=== PATIENT | male | born 1945 | race Caucasian/White ===

== ENCOUNTER 2017-08-08 07:03 | Observation (INO) | payer MEDICARE, OTHER, SELFPAY ==
[2017-08-08] VITALS (13 sets, daily range): BP systolic 133–191; BP diastolic 74–90; PULSE 49–75; RESP 12–18; TEMP 36.5–37; O2SAT 96–98; BMI 34.3; BMI 33.1
--- NOTE | 2017-08-08 07:14 | EKG12_ITS ---
Test Reason : CP, PALPITATIONS Blood Pressure : / mmHG Vent. Rate : 079 BPM Atrial Rate : 288 BPM P-R Int : 000 ms QRS Dur : 106 ms QT Int : 420 ms P-R-T Axes : 000 -47 006 degrees QTc Int : 481 ms Atrial fibrillation /flutter Premature ventricular complexes Poor R wave progression Left axis deviation Inferior infarct , age undetermined Abnormal ECG Confirmed by MERLE ORO, VIOLETTA ([id number]), technical writer and editor BRENDA KULKARNI ([id number]) on 08/10/2017 1:00:29 PM Referred By: JOHN Confirmed By:VIOLETTA BLOOM MD
--- NOTE | 2017-08-08 07:14 | RAD_ITS ---
STUDY: X-RAY CHEST REASON FOR EXAM: Male, 71 years old. Chest pain TECHNIQUE: Single AP portable view of the chest. COMPARISON: 09/10/2016 FINDINGS: The lungs are clear and expanded. There is no demonstrated pleural abnormality. There is moderate cardiac enlargement. Normal mediastinum and rosendo. Normal visualized pulmonary arteries. Normal visualized aortic arch and descending thoracic aorta. Normal visualized thoracic spine. Normal visualized ribs, clavicles, and shoulders. There is no demonstrated abnormality of the visualized soft tissue structures of the upper abdomen. RAD/Chest 1 View (Portable) IMPRESSION: Normal x-ray examination of the chest. Electronically Signed: Rico Aviles DO at 8:23 EDT Tel , Service support ,
[2017-08-08] MEDS: Aspirin 81 MG TAB.CHEW 324 MG PO (07:24)
--- NOTE | 2017-08-08 07:26 | NURSING ---
PCU BRADYCARDIA, CP, ELEVATED TROP SEMENTI
--- NOTE | 2017-08-08 07:33 | ED.DCSUM_ITS ---
- ER Visit Summary Date of Service: 08/08/17 Chief Complaint: Palpitations, reflux History of Present Illness: The patient is a 71 M who states he has had this pain for months. He states he came in today because he started feeling a little bit short of breath however when I asked him later on in the interview he says is not short of breath. He has a history of atrial fibrillation which was diagnosed last year. He is currently on apixaban. He does take omeprazole for acid reflux. He had a cardiac catheterization done in September 2016 which showed 60% coronary lesions in the left anterior descending in the right coronary artery. He has a 50% lesion in the circumflex. His EF was 70% at that time. Physical Examination: Vital signs reviewed. HEENT exam unremarkable. Heart is irregularly irregular without murmurs. His rate is controlled. Lungs are clear to auscultation. Abdomen is soft and nontender. Extremities reveal no edema. Peripheral pulses are equal. Skin exam normal. Neurologic exam normal. Test Results: EKG was A. fib with rate 79. PVCs noted. Chest x-ray unremarkable. Labs unremarkable except for troponin 0 0.07. Emergency Department Course and Treatment: Patient received aspirin. Due to his history and elevated troponin I feel he should be admitted. Spoke with the hospitalist for admission Treatment Plan: [] Disposition: Admit Impression: Chest Pain, indeterminate troponin This note was generated with [employer] dictation software. It may contain incorrect words, spelling, and punctuation that were not noted in review of the chart prior to signing ED Disposition - Plan for ED Patient: Chief Complaint: Palpitations [facility] [[facility] Provider[facility] -
[2017-08-08 07:49] LABS: Absolute Lymphocyte Count 1.97 X10^3/ul (0.83-4.51); Absolute Neutrophil Count 3.7 X10^3/uL (2.0-7.7); Basophil# 0.03 X10^3/uL; Basophil% 0.4 % (0-1); Eosinophil# 0.14 X10^3/uL; Eosinophils% 2.1 % (0-5); Hematocrit 40.9 % (40-54); Lymphocyte # 1.97 X10^3/ul (4.0); Lymphocyte % 29.2 % (19-41); Mean Corp Hgb Conc 34.2 g/gl (32-36); Mean Corpuscular Hgb 30.2 pg (27.0-32.0); Mean Corpuscular Volume 88.1 fL (80-94); Monocyte% 13.3 % (0-10); Neutrophil # 3.69 X10^3/uL (2.7-7.7); Neutrophil % 54.7 % (47-70); Platelet Count 179 K/mm3 (150-450); RBC Distribution Width CV 14.3 % (11.6-14.6); RBC Distribution Width SD 45.9 fl (35.1-43.9); Red Blood Count 4.64 M/mm3 (4.6-6.2); White Blood Count 6.8 K/mm3 (4.4-11.0)
[2017-08-08 07:51] LABS: POSITIVE COUNT NO; POSITIVE DIFFERENTIAL NO; POSITIVE MORPHOLOGY NO
[2017-08-08 08:08] LABS: Anion Gap 8 (5-15); BUN 11 mg/dL (7-18); BUN/Creat Ratio 10.5 RATIO (10-20); Calcium,Total 8.7 mg/dL (8.5-10.1); Chloride 103 mmol/L (98-107); Creatinine, Serum 1.05 mg/dL (0.70-1.30); EST Glomerular Filtration Rate 74 mL/min (>60); Est Glom Filt Rate - Afr Amer 90 mL/min (>60); Glucose 113 mg/dL (74-106); Potassium 3.9 mmol/L (3.5-5.1); Sodium Level 137 mmol/L (136-145)
--- NOTE | 2017-08-08 08:21 | NURSING ---
CALLING [facility]
--- NOTE | 2017-08-08 08:23 | NURSING ---
HAD TO LEAVE MESSAGE ON TRANSFER LINE AT [facility]
--- NOTE | 2017-08-08 08:44 | NURSING ---
DR YEE FOR DR LOPEZ
--- NOTE | 2017-08-08 08:49 | NURSING ---
118 OBS CP AND PALPITATION. UNSTABLE ANGINA AND AFIB NAKIA
--- NOTE | 2017-08-08 09:47 | NURSING ---
[facility], CALLED AND SAID PATIENT COULD BE ADMITTED AND THEY WOULD FOLLOWUP WITH HIM
[2017-08-08 09:58] LABS: BNP,B-Type NATRIURETIC PEPTIDE 403.7 pg/mL (0-100); Thyroid Stim Hormone (TSH) 1.77 uIU/mL (0.358-3.74)
[2017-08-08] MEDS: NIFEdipine 60 MG Tablet PO (11:07)
[2017-08-08] MEDS: APIXABAN 5 MG TABLET PO (11:07)
[2017-08-08] MEDS: Pantoprazole Sodium 20 MG Tablet PO (11:07)
[2017-08-08] MEDS: Metoprolol Tartrate 50 MG Tablet PO ×2 (11:07→21:43)
--- NOTE | 2017-08-08 11:13 | PCM.HP.STD ---
Problem List (1) Unstable angina Status: Acute (2) Abnormal EKG Status: Chronic (3) Troponin I above reference range Status: Chronic (4) Atrial fibrillation Status: Chronic (5) Near syncope Status: Resolved (6) Lightheadedness Status: Resolved (7) Hypertension Status: Chronic History of Present Illness Date of Admission: 08/08/17 Chief Complaint: Chest pain and palpitation for about 1 week The patient is a 71 year old M with history of moderate coronary artery disease as per cardiac cath in September 2016, chronic A. fib on Eliquis came to ER with intermittent chest pain for about 1 week associated with mild shortness of breath. The characteristics of chest pain is more localized associated with mild shortness of breath and palpitation and gets even at rest. Chest pain does not have direct correlation with exertion but he gets more short of breath and chest tightness with activity. He had last cath in September 2016 showed mid LAD 60%, mid OM to 50% and mid RCA 60% with LV gram EF 70%. Patient had also echo at that time showed EF 65% with no regional wall motion abnormality. LA moderately enlarged mildly dilated RV, RVSP 35 mmHg. EKG shows A. fib at 79 bpm with LAD with PVCs. Currently, he is chest pain-free Past Medical History Past Medical History (Chronic Problems): Chronic Problems Abnormal EKG (Chronic) Troponin I above reference range (Chronic) Atrial fibrillation (Chronic) Hypertension (Chronic) Allergies lisinopril Allergy (Verified 08/08/17 07:06) Angioedema Penicillins [PCN] Allergy (Verified 08/08/17 07:06) Hives Home Medications: Ambulatory Orders Medication Instructions Recorded Metoprolol Tartrate [Lopressor 50 mg PO BID #1 tablet 09/02/14 (beta ines)] NIFEdipine [Procardia Xl] 60 mg PO BID #14 tablet 09/02/14 Omeprazole [Prilosec] 20 mg PO DAILY 09/10/16 Apixaban [Eliquis] 5 mg PO BID 08/08/17 Surgical History: total knee arthroplasty Psychiatric History: No pertinent psych hx Smoking Status: Never smoker - *Family History Maternal History Items: Hypertension Paternal History Items: Stroke Sibling History Items: Hypertension Review of Systems Constitutional: Denies: Chills, Fever, Weight Change HEENT: Denies: Head Aches, Sinus Congestion, Sinus Drainage Cardiovascular: Reports: Chest Pain. Denies: Palpitations Respiratory: Reports: Shortness of breath upon exertion. Denies: Cough, Shortness of breath at rest, Sputum production Gastrointestinal: Denies: Abdominal Pain, Nausea, Vomiting Genitourinary: Denies: Dysuria Musculoskeletal: Denies: Joint Pain, Joint Tenderness Skin: Denies: Rash, Wounds Neurological: Denies: Numbness, Tingling, Focal weakness Psychiatric: Denies: Anxiety, Depression, Homicidal Ideations, Suicidal Ideations Hematologic/ Lymphatic: Denies: Easy Bruising, Easy Bleeding VTE Information - Inpt Only VTE Present on Admission: No VTE Mechan Device Prophylaxis: SCD's VTE Pharm Prophylaxis ordered?: Yes Patient Problems: Active and Suspected Problems Unstable angina (Acute) - Physical Exam General: Alert, Oriented x3, Cooperative HEENT: Atraumatic, PERRLA, EOMI, Normocephalic Neck: Supple, No JVD, Negative Carotid Bruits Lungs: Clear to auscultation, Normal air movement Cardiovascular: Normal S1, Normal S2, No murmurs, Irregular Rate Abdomen: Bowel Sounds Present, Soft, Non Tender, Non-Distended Extremities: Capillary Refill Less than 3 Seconds, Edema Skin: No rashes, No breakdown Musculoskeletal: No Tenderness to Palpation of Joints or Extremities Neurological: Cranial nerves II-XII grossly intact Psych/Mental Status: Normal Affect, Appropriate Vital Signs Temp Pulse Resp BP Pulse Ox 98.6 F 60 18 142/74 H 96 08/08/17 09:24 08/08/17 11:07 08/08/17 09:24 08/08/17 09:24 08/08/17 09:24 Oxygen Delivery Method Room Air Weight: 265 lb 3.457 oz Body Mass Index (BMI) 33.1 Assessment/Plan Active and Suspected Problems Unstable angina (Acute) The patient is a 71 year old M with history of moderate coronary artery disease as per cardiac cath in September 2016, chronic A. fib on Eliquis came to ER with intermittent chest pain for about 1 week associated with mild shortness of breath. The characteristics of chest pain is more localized associated with mild shortness of breath and palpitation and gets even at rest. Chest pain does not have direct correlation with exertion but he gets more short of breath and chest tightness with activity. He had last cath in September 2016 showed mid LAD 60%, mid OM to 50% and mid RCA 60% with LV gram EF 70%. Patient had also echo at that time showed EF 65% with no regional wall motion abnormality. LA moderately enlarged mildly dilated RV, RVSP 35 mmHg. EKG shows A. fib at 79 bpm with LAD with PVCs. Currently, he is chest pain-free 1. Atypical chest pain most probably unstable angina with moderate coronary artery disease: The patient did not had dust collector operator follow-up after discharge in September 2016 although he was asked [facility] Patient is being admitted in PCU. Serial cardiac enzymes. Continue home medication. Hold Eliquis as he might need repeat cardiac cath. Consult dust collector operator. Patient on nitro ointment as needed for chest pain. Fasting lipid profile tomorrow a.m. 2. Chronic A. fib on Eliquis: Rate is controlled. hold Eliquis in anticipation possible cardiac cath 3. Other comorbidities include hypertension: Home medication reconciliation done. Blood pressure slightly elevated 158/74 in ER. Currently controlled. DVT prophylaxis: On bilateral SCDs. Clinical Impression(s) from Imaging Studies Chest X-Ray 08/08/17 07:14 IMPRESSION: Normal x-ray examination of the chest. Laboratory Results 08/08/17 07:40: WBC 6.8, RBC 4.64, Hgb 14.0, Hct 40.9, MCV 88.1, MCH 30.2, MCHC 34.2, RDW 14.3, RDW Differential 45.9 H, Plt Count 179, MPV 11.0, Immature Gran % (Auto) 0.300, Neut % (Auto) 54.7, Lymph % (Auto) 29.2, [place] % (Auto) 13.3 H, Eos % (Auto) 2.1, Baso % (Auto) 0.4, Absolute Neuts (auto) 3.7, Absolute Lymphs (auto) 1.97, Total Counted Not Reportable 08/08/17 07:40: Sodium 137, Potassium 3.9, Chloride 103, Carbon Dioxide 26.0, Anion Gap 8, BUN 11, Creatinine 1.05, Estim Creat Clear Calc 77.20, Est GFR (MDRD) Af Amer 90, Est GFR (MDRD) Non-Af 74, BUN/Creatinine Ratio 10.5, Glucose 113 H, Calcium 8.7, Troponin I 0.07 H 05/07/18 07:40: B-Natriuretic Peptide 403.7 H 08/08/17 07:40: TSH 1.77 Code Visit OBSV E&M: [id number] Initial observation care L3
--- NOTE | 2017-08-08 16:00 | EKG12_ITS ---
Test Reason : Blood Pressure : / mmHG Vent. Rate : 060 BPM Atrial Rate : 060 BPM P-R Int : 400 ms QRS Dur : 104 ms QT Int : 446 ms P-R-T Axes : 072 -48 016 degrees QTc Int : 446 ms Sinus rhythm with 1st degree A-V block with Fusion complexes Left axis deviation Low voltage QRS Inferior infarct (cited on or before 31-AUG-2014) Abnormal ECG When compared with ECG of 13-SEP-2016 05:18, Sinus rhythm has replaced Atrial fibrillation Confirmed by JONATHON ORO, PIEDAD ([id number]), web content editor BRENDA KULKARNI ([id number]) on 08/12/2017 2:25:04 PM Referred By: CELESTINE Confirmed By:PIEDAD HOLT MD
--- NOTE | 2017-08-08 16:13 | CON.PCM_ITS ---
Reason for Consult Date of Consultation: 08/08/17 Reason for Consultation: Shortness of breath and chest tightness History of Present Illness: The patient is a 71 year old M with a history of hypertension and probable paroxysmal atrial fibrillation. This was diagnosed a year ago when he presented for colonoscopy and was noted to be in atrial fibrillation. At that time he also had mildly abnormal cardiac enzymes. He underwent a cardiac catheterization which demonstrated mild coronary artery disease with a 60% left anterior descending artery stenosis, a 50% first obtuse marginal branch stenosis in the right coronary artery with 50-60% stenosis his ejection fraction was normal medical therapy was recommended as well as anticoagulation. He also had an echocardiogram which demonstrated preserved ejection fraction and moderate left atrial enlargement. He apparently has been doing well but says that he started having some tightness as well as shortness of breath and he thinks he had mild pedal edema he was waking up in the night and slightly short of breath. He says that he has been compliant with his medications. He is currently not having any further chest tightness. [] Past Medical History Allergies/Adverse Reactions: Allergies lisinopril Allergy (Verified 08/08/17 07:06) Angioedema Penicillins [PCN] Allergy (Verified 08/08/17 07:06) Hives Home Medications: Ambulatory Orders Medication Instructions Recorded Metoprolol Tartrate [Lopressor 50 mg PO BID #1 tablet 09/02/14 (beta ines)] NIFEdipine [Procardia Xl] 60 mg PO BID #14 tablet 09/02/14 Omeprazole [Prilosec] 20 mg PO DAILY 09/10/16 Apixaban [Eliquis] 5 mg PO BID 08/08/17 Past Medical History (Chronic Problems): Chronic Problems Abnormal EKG (Chronic) Troponin I above reference range (Chronic) Atrial fibrillation (Chronic) Hypertension (Chronic) Surgical History: total knee arthroplasty Psychiatric History: No pertinent psych hx - *Family History Maternal History Items: Hypertension Paternal History Items: Stroke Sibling History Items: Hypertension Smoking Status: Never smoker Alcohol: Occasional Drugs: None Review of Systems - Review of Systems General: Denies: Fever, Night Sweats, Fatigue Cardiovascular: Reports: Chest Discomfort at Rest, Shortness of Breath. Denies : Chest Discomfort, Orthopnea, PND, Peripheral Edema, Palpitations, Lightheadedness, Dizziness, Near Syncope, Syncope Respiratory: Denies: Cough, Sputum Production, Hemoptysis Gastrointestinal: Denies: Hematemesis, Hematochezia, Melena Genitourinary: Denies: Dysuria, Hematuria Skin: Denies: Rash Subjectve: Pleasant gentleman in no apparent distress Objective: Vital Signs Temp Pulse Resp BP Pulse Ox 98.0 F 71 18 137/90 H 97 08/08/17 14:51 08/08/17 15:10 08/08/17 14:51 08/08/17 14:51 08/08/17 14:51 Oxygen Delivery Method Room Air Weight: 265 lb 3.457 oz Body Mass Index (BMI) 33.1 Intake and Output for Last 24 Hours 08/06/17 08/07/17 08/08/17 23:59 23:59 23:59 Intake Total 375 / 375 Balance 375 / 375 General: Awake, Alert, Oriented x 3 HEENT: PERRL, EOMI, Sclera Non Icteric Neck: Supple, Good ROM, No Lymph Node Enlargement Lungs: Clear to auscultation Cardiovascular: Regular Rhythm, Normal S1, Normal S2, No Murmurs, No Rubs, No Gallops Vascular: No Carotid Bruits, Normal Femoral Pulses, Normal Radial Pulses, Normal Dorsalis Pedal Pulse, Normal Posterior Tibial Pulses Abdomen: Bowel Sounds Present, Soft, Non Tender, No HSM, No Organomegaly Extremities: No Cyanosis, No Clubbing, No edema Neurological: No Focal Motor or Sensory Deficit 08/08/17 11:50: Troponin I 0.07 H Rhythm: EKG: Initial EKG demonstrated atrial fibrillation with a controlled ventricular response rate and premature ventricular complexes with a rate of 79 bpm. Follow -up electrocardiogram demonstrates sinus bradycardia. Assessment/Plan 1. Diastolic heart failure. Patient appears to have presented with shortness of breath elevated natruretic peptide was in atrial fibrillation and had evidence of diastolic heart failure. My recommendation at this time would be to start him on Lasix 40 mg a day. He had an echocardiogram within the last year he has not had any abnormal cardiac enzymes and I do not think there is a reason to repeat the above will perform any stress testing. His medical therapy should be optimized. He can be followed up as an outpatient regarding the above. 2. Paroxysmal atrial fibrillation Patient appears to be in paroxysmal atrial fibrillation has currently converted to sinus rhythm he is on the beta-ines as well as on the Eliquis. My recommendation would be for him to continue the same without making any changes. 3. Mild coronary artery disease. Patient has mild coronary artery disease documented by cardiac catheterization less than a year ago. His cardiac enzyme pattern does not demonstrate evidence of ischemia and I suspect that the minimal troponin bump is secondary to demand ischemia and/or stretch from the congestive heart failure. I do not think that a stress test at this time would be necessarily beneficial. His chest pain appears to be rather atypical. 4. Hypertension His blood pressure is under good control. He will remain on the beta-ines and the calcium channel ines. I would recommend that we reduce the dose of the nifedipine to once a day and put him on an CHUNG inhibitor with a diuretic. 5. Risk factor modification Patient would need his risk factor modified with high intensity statin due to his mild to moderate coronary artery disease status. Thank you for allowing me to participate in the care of your patient. Please don't hesitate to call if any issues arise
[2017-08-08] MEDS: Furosemide 40 MG/4 ML Vial IV (16:38)
[2017-08-08] MEDS: 0.9% NaCl Peripheral Flush Adult/Peds IV (16:38)
[2017-08-08] MEDS: Atorvastatin Calcium 40 MG Tablet PO (21:43)
[2017-08-09] VITALS (9 sets, daily range): BP systolic 123–160; BP diastolic 69–89; PULSE 32–60; RESP 16–18; TEMP 36.4–37; O2SAT 95–97
[2017-08-09 06:15] LABS: Cholesterol 175 mg/dL (200); High Density Lipoprotein 45 mg/dL; Triglycerides 112 mg/dL; Very Low Density Lipoprotein 22 mg/dL (5-40)
[2017-08-09] MEDS: Acetaminophen 325 MG Tablet 650 MG PO (06:36)
--- NOTE | 2017-08-09 06:55 | PCM.PN.CARD ---
Subjectve: Patient seen and evaluated. Appears to be much better this morning. Objective: Vital Signs Temp Pulse Resp BP Pulse Ox 98.6 F 58 L 18 134/74 H 95 08/09/17 05:31 08/09/17 05:31 08/09/17 05:31 08/09/17 05:31 08/09/17 05:31 Oxygen Delivery Method Room Air Weight: 265 lb 3.457 oz Body Mass Index (BMI) 33.1 Intake and Output for Last 24 Hours 08/07/17 08/08/17 08/09/17 23:59 23:59 23:59 Intake Total 1095 / 1095 100 / 100 Balance 1095 / 1095 100 / 100 General: Awake, Alert, Oriented x 3 HEENT: PERRL, EOMI, Sclera Non Icteric Neck: Supple, Good ROM, No Lymph Node Enlargement Lungs: Clear to auscultation Cardiovascular: Regular Rhythm, Normal S1, Normal S2, No Murmurs, No Rubs, No Gallops Vascular: No Carotid Bruits, Normal Femoral Pulses, Normal Radial Pulses, Normal Dorsalis Pedal Pulse, Normal Posterior Tibial Pulses Abdomen: Bowel Sounds Present, Soft, Non Tender, No HSM, No Organomegaly Extremities: No Cyanosis, No Clubbing, No edema Neurological: No Focal Motor or Sensory Deficit 08/08/17 11:50: Troponin I 0.07 H 08/08/17 15:40: Troponin I 0.07 H 08/08/17 22:11: Troponin I 0.06 08/09/17 05:25: Triglycerides 112, Cholesterol 175, LDL Cholesterol 108, VLDL Cholesterol 22, HDL Cholesterol 45 Rhythm: EKG: ECHO: Stress Test: Cardiac Cath: PCI: CT Surgery: Holter monitor: EPS: PPM: CXR: Chest CT Scan: Medical Necessity - Tobacco Use Smoking Status: Never smoker Assessment/Plan 1. Diastolic heart failure. Patient appears to have presented with shortness of breath elevated natruretic peptide was in atrial fibrillation and had evidence of diastolic heart failure. My recommendation at this time would be to start him on Lasix 40 mg a day. He had an echocardiogram within the last year he has not had any abnormal cardiac enzymes and I do not think there is a reason to repeat the above will perform any stress testing. His medical therapy should be optimized. He can be followed up as an outpatient regarding the above. 2. Paroxysmal atrial fibrillation Patient appears to be in paroxysmal atrial fibrillation has currently converted to sinus rhythm he is on the beta-ines as well as on the Eliquis. My recommendation would be for him to continue the same without making any changes. 3. Mild coronary artery disease. Patient has mild coronary artery disease documented by cardiac catheterization less than a year ago. His cardiac enzyme pattern does not demonstrate evidence of ischemia and I suspect that the minimal troponin bump is secondary to demand ischemia and/or stretch from the congestive heart failure. I do not think that a stress test at this time would be necessarily beneficial. His chest pain appears to be rather atypical. 4. Hypertension His blood pressure is under good control. He will remain on the beta-ines and the calcium channel ines. I would recommend that we reduce the dose of the nifedipine to once a day and put him on an CHUNG inhibitor with a diuretic. 5. Risk factor modification Patient would need his risk factor modified with high intensity statin due to his mild to moderate coronary artery disease status. This morning he appears to have improved overall and my recommendation is to discharge him and follow him as an outpatient at the [facility]. Thank you for allowing me to participate in the care of your patient. Please don't hesitate to call if any issues arise
[2017-08-09] MEDS: NIFEdipine 60 MG Tablet PO (09:23)
[2017-08-09] MEDS: Metoprolol Tartrate 50 MG Tablet PO (09:23)
[2017-08-09] MEDS: Lisinopril 10 MG Tablet PO (09:23)
[2017-08-09] MEDS: Pantoprazole Sodium 20 MG Tablet PO (09:23)
[2017-08-09] MEDS: Aspirin E.C. 81 MG Tablet PO (09:23)
[2017-08-09] MEDS: Furosemide 40 MG Tablet PO (09:23)
--- NOTE | 2017-08-09 10:16 | EKG12_ITS ---
Test Reason : BRADYCARDIA Blood Pressure : / mmHG Vent. Rate : 051 BPM Atrial Rate : 051 BPM P-R Int : 432 ms QRS Dur : 104 ms QT Int : 456 ms P-R-T Axes : 068 -54 005 degrees QTc Int : 420 ms Sinus bradycardia with 1st degree A-V block Left axis deviation Low voltage QRS Inferior infarct , age undetermined Abnormal ECG When compared with ECG of 08-AUG-2017 16:16, MANUAL COMPARISON REQUIRED, DATA IS UNCONFIRMED Confirmed by JONATHON ORO, PIEDAD ([id number]), purchasing expeditor BRENDA KULKARNI ([id number]) on 08/16/2017 2:17:38 PM Referred By: NAKIA Confirmed By:PIEDAD HOLT MD
--- NOTE | 2017-08-09 13:15 | PCM.DC ---
- Discharge Diagnoses Current Active Problems: Current Active and Chronic Problems Unstable angina (Acute) You will use the following diet at home:: Cardiac - <2 g sodium/day Your food should be the consistency of: Regular Your liquids should be the consistency of: Regular/Thin Discharge Activity: Return to Normal Activity Allergies/Adverse Reactions: Allergies lisinopril Allergy (Verified 08/08/17 07:06) Angioedema Penicillins [PCN] Allergy (Verified 08/08/17 07:06) Hives Medications to take at Discharge Omeprazole [Prilosec] 20 mg PO DAILY 09/10/16 Apixaban [Eliquis] 5 mg PO BID 08/08/17 Aspirin E.C. [Ecotrin] 81 mg PO DAILY@0800 tablet 08/09/17 Atorvastatin Calcium [Lipitor] 40 mg PO QHS #30 tablet 08/09/17 Furosemide [Lasix] 40 mg PO DAILY #30 tablet 08/09/17 Metoprolol Tartrate [Lopressor (beta ines)] 25 mg PO BID #60 tab 08/09/17 NIFEdipine [Procardia Xl] 60 mg PO DAILY tablet 08/09/17 The following prescriptions were given: Metoprolol Tartrate [Lopressor (beta ines)] 25 mg PO BID #60 tab Please follow up with your Primary Care Physician in: 2 weeks Please Follow Up With: Emanuel Richardson MD When: 1 week Proposed Discharge Date: 08/09/17
--- NOTE | 2017-08-09 13:21 | PCM.DC.SUM ---
<Ross Kamara - Last Filed: 08/09/17 13:21> Discharge Date and Diagnosis Date of Admission: 08/08/17 Date of Discharge: 08/09/17 - Primary Discharge Diagnosis Active and Suspected Problems Acute diastolic CHF Paroxysmal AF 2nd degree heart block, type 1 HTN CAD - Secondary Discharge Diagnosis Chronic Problems Abnormal EKG (Chronic) Troponin I above reference range (Chronic) Atrial fibrillation (Chronic) Hypertension (Chronic) Hospital Course and Treatment Imaging Results: RAD/Chest 1 View (Portable) IMPRESSION: Normal x-ray examination of the chest. Consults: Cardiology - Dylan Operations: None Procedures: None Summary of Care Provided: Physical exam on day of discharge: General: Resting comfortably NAD Psych: A/Ox3 normal affect HEENT: PEARRLA AT NC Neck: Supple NT CV: RRR no m/t/r/g/h Resp: CTA Abd: [id number] Soft NT no guarding or rigidity Ext: DP2+= no edema Skin: W/D normal turgor Lymph/Heme: No active bleeding or adenopathy Neuro: CN2-12 intact Hospital course: The patient is a 71 year old M with a history of paroxysmal atrial fibrillation, hypertension,, mild coronary artery disease sent to the emergency room with increased shortness of breath and pain and palpitations for about a week. He is on Eliquis for history of atrial fibrillation and also takes Procardia and metoprolol at home. He had an indeterminate troponin and an elevated BNP and was felt to be in heart failure. With indeterminate troponin chest pain cardiology was consulted for further recommendation. Cardiology did not feel he would benefit from further stress testing or invasive workup. He had had an echo the prior year with ejection fraction of 65%. He is placed on IV Lasix. We maintained his home medications. He diuresed significantly and had significant improvement in his symptoms. While he was here he did have an episode of bradycardia and demonstrated second degree heart block type I. We decided to hold his Lipitor Toprol all for 3 days and arrange for him to have a 48 hour Holter monitor placed as an outpatient. We also decreased his dose of metoprolol, he will restart at 25 BID instead of 50 twice daily. He remained otherwise asymptomatic. His he was discharged home on a new Lasix prescription was advised to be have a BMP in 5 days. He will need to follow-up with his PCP and with cardiology. He is discharged home in stable condition. I did not discharge him on an CHUNG inhibitor as he has a documented reaction of angioedema. This patient was seen by Ross Kamara PA-C under the supervision of Doctor Maico. [] Discharge Diet: Low fat/ Low Cholesterol, 2000 mg Sodium Diet Discharge Activity: Return to Normal Activity Home Medications: Medications to take at Discharge Omeprazole [Prilosec] 20 mg PO DAILY 09/10/16 Apixaban [Eliquis] 5 mg PO BID 08/08/17 Aspirin E.C. [Ecotrin] 81 mg PO DAILY@0800 tablet 08/09/17 Atorvastatin Calcium [Lipitor] 40 mg PO QHS #30 tablet 08/09/17 Furosemide [Lasix] 40 mg PO DAILY #30 tablet 08/09/17 Metoprolol Tartrate [Lopressor (beta ines)] 25 mg PO BID #60 tab 08/09/17 NIFEdipine [Procardia Xl] 60 mg PO DAILY tablet 08/09/17 Following Prescrptions Were Given to Patient: Metoprolol Tartrate [Lopressor (beta ines)] 25 mg PO BID #60 tab Primary Care Physician: [facility] [Primary Care Provider] - Please follow up with your Primary Care Physician in: 2 weeks Please Follow Up With: Emanuel Schofield MD When: 1 week Disposition: Home Minutes spent on discharge:: 35 Patient Condition:: Stable Medical Necessity - Tobacco Use Smoking Status: Never smoker Meaningful Use Info Meaningful Use Diagnoses (Choose all that apply): CHF - CHF CHUNG/ARB ordered at discharge?: No Reason CHUNG/ARB not ordered?: Angioedema Documented LVEF (%): 65 <Ken Nina - Last Filed: 08/09/17 18:16> Discharge Date and Diagnosis - Secondary Discharge Diagnosis Chronic Problems Abnormal EKG (Chronic) Troponin I above reference range (Chronic) Atrial fibrillation (Chronic) Hypertension (Chronic) Hospital Course and Treatment Summary of Care Provided: This patient was seen in conjunction with Ross PATIÑO. I have independently interviewed and examined the patient and reviewed pertinent history, examination findings, laboratory and plan of management. I have reviewed the note and agree with the documented findings with the few additional points. In brief, patient is admitted for chest pain. Serial troponins were done and were mildly elevated but flat 0.07. Seen by padded products inspector trimmer and he did not feel he needs further stress test or invasive workup. He had last cath in September 2016 showed mid LAD 60%, mid OM to 50% and mid RCA 60% with LV gram EF 70%. Patient had also echo at that time showed EF 65% with no regional wall motion abnormality. LA moderately enlarged mildly dilated RV, RVSP 35 mmHg. Furthermore, patient had Wenckebach second-degree heart block. This was discussed with Dr. schofield. Patient discharged on Holter monitor. Patient was advised to hold metoprolol for 3 days and then resume at lower dose with holding parameter if heart rate less than 60/min. Aloe up with the padded products inspector trimmer I have discussed my assessment with Ross PATIÑO and orders have been reviewed. [] Meaningful Use Info Meaningful Use Diagnoses (Choose all that apply): CHF - CHF CHUNG/ARB ordered at discharge?: No Reason CHUNG/ARB not ordered?: Angioedema Documented LVEF (%): 65 Code Visit OBSV E&M: 29355 Observation care discharge
--- NOTE | 2017-08-09 13:28 | DS.PCM_ITS ---
<Ross Kamara - Last Filed: 08/09/17 13:21> Discharge Date and Diagnosis Date of Admission: 08/08/17 Date of Discharge: 08/09/17 - Primary Discharge Diagnosis Active and Suspected Problems Acute diastolic CHF Paroxysmal AF 2nd degree heart block, type 1 HTN CAD - Secondary Discharge Diagnosis Chronic Problems Abnormal EKG (Chronic) Troponin I above reference range (Chronic) Atrial fibrillation (Chronic) Hypertension (Chronic) Hospital Course and Treatment Imaging Results: RAD/Chest 1 View (Portable) IMPRESSION: Normal x-ray examination of the chest. Consults: Cardiology - Dylan Operations: None Procedures: None Summary of Care Provided: Physical exam on day of discharge: General: Resting comfortably NAD Psych: A/Ox3 normal affect HEENT: PEARRLA AT NC Neck: Supple NT CV: RRR no m/t/r/g/h Resp: CTA Abd: [id number] Soft NT no guarding or rigidity Ext: DP2+= no edema Skin: W/D normal turgor Lymph/Heme: No active bleeding or adenopathy Neuro: CN2-12 intact Hospital course: The patient is a 71 year old M with a history of paroxysmal atrial fibrillation , hypertension,, mild coronary artery disease sent to the emergency room with increased shortness of breath and pain and palpitations for about a week. He is on Eliquis for history of atrial fibrillation and also takes Procardia and metoprolol at home. He had an indeterminate troponin and an elevated BNP and was felt to be in heart failure. With indeterminate troponin chest pain cardiology was consulted for further recommendation. Cardiology did not feel he would benefit from further stress testing or invasive workup. He had had an echo the prior year with ejection fraction of 65%. He is placed on IV Lasix. We maintained his home medications. He diuresed significantly and had significant improvement in his symptoms. While he was here he did have an episode of bradycardia and demonstrated second degree heart block type I. We decided to hold his Lipitor Toprol all for 3 days and arrange for him to have a 48 hour Holter monitor placed as an outpatient. We also decreased his dose of metoprolol, he will restart at 25 BID instead of 50 twice daily. He remained otherwise asymptomatic. His he was discharged home on a new Lasix prescription was advised to be have a BMP in 5 days. He will need to follow-up with his PCP and with cardiology. He is discharged home in stable condition. I did not discharge him on an CHUNG inhibitor as he has a documented reaction of angioedema. This patient was seen by Ross Kamara PA-C under the supervision of Doctor Maico. [] Discharge Diet: Low fat/ Low Cholesterol, 2000 mg Sodium Diet Discharge Activity: Return to Normal Activity Home Medications: Medications to take at Discharge Omeprazole [Prilosec] 20 mg PO DAILY 09/10/16 Apixaban [Eliquis] 5 mg PO BID 08/08/17 Aspirin E.C. [Ecotrin] 81 mg PO DAILY@0800 tablet 08/09/17 Atorvastatin Calcium [Lipitor] 40 mg PO QHS #30 tablet 08/09/17 Furosemide [Lasix] 40 mg PO DAILY #30 tablet 08/09/17 Metoprolol Tartrate [Lopressor (beta ines)] 25 mg PO BID #60 tab 08/09/17 NIFEdipine [Procardia Xl] 60 mg PO DAILY tablet 08/09/17 Following Prescrptions Were Given to Patient: Metoprolol Tartrate [Lopressor (beta ines)] 25 mg PO BID #60 tab Primary Care Physician: [facility] [Primary Care Provider] - Please follow up with your Primary Care Physician in: 2 weeks Please Follow Up With: Emanuel Schofield MD When: 1 week Disposition: Home Minutes spent on discharge:: 35 Patient Condition:: Stable Medical Necessity - Tobacco Use Smoking Status: Never smoker Meaningful Use Info Meaningful Use Diagnoses (Choose all that apply): CHF - CHF CHUNG/ARB ordered at discharge?: No Reason CHUNG/ARB not ordered?: Angioedema Documented LVEF (%): 65 <Ken Nina - Last Filed: 08/09/17 18:16> Discharge Date and Diagnosis - Secondary Discharge Diagnosis Chronic Problems Abnormal EKG (Chronic) Troponin I above reference range (Chronic) Atrial fibrillation (Chronic) Hypertension (Chronic) Hospital Course and Treatment Summary of Care Provided: This patient was seen in conjunction with Ross PATIÑO. I have independently interviewed and examined the patient and reviewed pertinent history, examination findings, laboratory and plan of management. I have reviewed the note and agree with the documented findings with the few additional points. In brief, patient is admitted for chest pain. Serial troponins were done and were mildly elevated but flat 0.07. Seen by laborer cheesemaking and he did not feel he needs further stress test or invasive workup. He had last cath in September 2016 showed mid LAD 60%, mid OM to 50% and mid RCA 60% with LV gram EF 70%. Patient had also echo at that time showed EF 65% with no regional wall motion abnormality. LA moderately enlarged mildly dilated RV, RVSP 35 mmHg. Furthermore, patient had Wenckebach second-degree heart block. This was discussed with Dr. schofield. Patient discharged on Holter monitor. Patient was advised to hold metoprolol for 3 days and then resume at lower dose with holding parameter if heart rate less than 60/min. Aloe up with the laborer cheesemaking I have discussed my assessment with Ross PATIÑO and orders have been reviewed. [] Meaningful Use Info Meaningful Use Diagnoses (Choose all that apply): CHF - CHF CHUNG/ARB ordered at discharge?: No Reason CHUNG/ARB not ordered?: Angioedema Documented LVEF (%): 65 Code Visit OBSV E&M: 61512 Observation care discharge
== END 2017-08-09 13:16 | disposition home or self-care (01) ==
LOC: ED 07:23 → PCU 08:51
PROVIDERS: Admitting Provider Internal Medicine; Emergency Provider Emergency Medicine; Visit Provider Internal Medicine
DX: R07.89 Other chest pain (principal); R06.02 Shortness of breath; I25.10 Atherosclerotic heart disease of native coronary artery without angina pectoris; Z79.01 Long term (current) use of anticoagulants; Z79.899 Other long term (current) drug therapy; R94.31 Abnormal electrocardiogram [ECG] [EKG]; I48.2 Chronic atrial fibrillation; I48.0 Paroxysmal atrial fibrillation; I11.0 Hypertensive heart disease with heart failure; I50.31 Acute diastolic (congestive) heart failure; K21.9 Gastro-esophageal reflux disease without esophagitis; I44.1 Atrioventricular block, second degree
CPT/HCPCS: 36415; 71045; 80048; 80061; 83880; 84443; 84484; 85025; 93005; 96374; 99218; 99284; A4216; G0378; J1940

== ENCOUNTER → 2017-08-09 13:38 | Outpatient (CLI) | payer MEDICARE, OTHER, SELFPAY | PROVIDERS: Visit Provider Physician Assistant | DX: I45.9 Conduction disorder, unspecified (principal); I49.9 Cardiac arrhythmia, unspecified | CPT/HCPCS: 93225; 93226 ==

== ENCOUNTER 2017-11-13 12:41 | Emergency (ER) | payer MEDICARE, OTHER, SELFPAY ==
[2017-11-13 12:42] VITALS: BP 160/76; PULSE 85; RESP 15; TEMP 36.7; O2SAT 97; BMI 31.2
--- NOTE | 2017-11-13 13:38 | RAD_ITS ---
STUDY: X-RAY - RIGHT TIBIA AND FIBULA REASON FOR EXAM: Male, 71 years old. Fall TECHNIQUE: 4 view(s) of the tibia and fibula were obtained. COMPARISON: None. FINDINGS: There is no evidence of fracture or dislocation. There are no significant degenerative changes. There are no radiodense foreign bodies. There is soft tissue swelling noted below the knee and above the ankle. RAD/Tibia & Fibula 2 Views IMPRESSION: No fracture or dislocation. Soft tissue swelling. Electronically Signed: Sam Holcomb, at 14:07 EDT Tel , Service support ,
--- NOTE | 2017-11-13 13:51 | ED.VISSUMM ---
- ER Visit Summary Date of Service: 11/13/17 Chief Complaint: Right leg pain History of Present Illness: The patient is a 71 M who presents with right leg pain that began after a fall today. Patient slipped in the shower and fell onto his right leg. Patient states his right lower leg was twisted underneath him. Patient states his pain is worse with weightbearing. Patient denies any paresthesias or weakness. Patient denies any head injury or loss of consciousness. Patient denies any other injuries. Physical Examination: Vital signs are stable. Patient is afebrile. Patient is in no acute distress. Musculoskeletal exam reveals tenderness, edema, and ecchymosis over the anterior aspect of the proximal tibia over the tibial tuberosity and over the distal lower tibia and fibula. There is no deformity noted. There is no bony crepitance or step-off. Range of motion was limited in all motion secondary to pain. Sensation was intact to light touch in all digits. Capillary refill is less than 2 seconds in all digits. The remaining physical exam is within normal limits. Test Results: X-rays of the right tibia and fibula were obtained. There is no acute fracture noted. Emergency Department Course and Treatment: Patient was instructed to ice and elevate the right leg. Patient was instructed to follow-up with his primary care physician in 5-7 days. Patient understood and was agreeable with the plan. All questions were answered. Disposition: Discharge home Impression: Right leg contusions This note was generated with [employer] dictation software. It may contain incorrect words, spelling, and punctuation that were not noted in review of the chart prior to signing ED Disposition - Plan for ED Patient: Disposition: Home or Assisted Living Chief Complaint: Lower Extremity Injury Diagnosis: Contusion of right lower leg, initial encounter Instructions: ED Contusion Lower Ext Referrals: [facility] [Family Provider] -
[2017-11-13 15:14] VITALS: BP 150/67; PULSE 75; RESP 18; O2SAT 98
== END 2017-11-13 15:16 | disposition home or self-care (01) ==
PROVIDERS: Emergency Provider Emergency Medicine
DX: S80.11XA Contusion of right lower leg, initial encounter (principal); W18.2XXA Fall in (into) shower or empty bathtub, initial encounter; Y93.9 Activity, unspecified; Y92.9 Unspecified place or not applicable; I10 Essential (primary) hypertension; I48.91 Unspecified atrial fibrillation; Z79.01 Long term (current) use of anticoagulants; Z79.82 Long term (current) use of aspirin; Z79.899 Other long term (current) drug therapy
CPT/HCPCS: 73590; 99284

== ENCOUNTER 2017-11-17 11:53 | Emergency (ER) | payer MEDICARE, OTHER, SELFPAY ==
[2017-11-17 11:55] VITALS: BP 163/78; PULSE 75; RESP 18; TEMP 36.6; O2SAT 96; BMI 31.2
[2017-11-17 12:08] VITALS: BP 170/88; PULSE 78; RESP 14; O2SAT 98
--- NOTE | 2017-11-17 12:21 | ED.DCSUM_ITS ---
- ER Visit Summary Date of Service: 11/17/17 Chief Complaint: [] Palpitations or racing heart sense of fatigue History of Present Illness: The patient is a 72 M [] history of unspecified irregular heartbeat on Eliquis, and hypertension who reports he suffers from unspecified palpitations and bradycardia he has had an extensive evaluation including cardiac cath with the last year that he states was negative at one time he was told he may require pacemaker. Today with he was at home he felt his heart was racing briefly and he felt weak and tired and now he just feels an occasional sense of palpitation. He had no fever no cough no chest pain abdominal pain or paresthesias, he is on no new medications has been no change to his general health status, in the bed he has obvious PVCs and then runs of some irregularity but a basic underlying sinus rhythm Physical Examination: [] vs are within normal range monitor rhythm as above head neck chest unremarkable the heart tones are generally regular he occasionally has PVCs and runs of irregularity that last for less than 30 seconds, his abdomen is soft nontender upper lower extremities are generally unremarkable he has a bruise to his right hassan related to a fall on Tuesday that is improving and not bothering him, he has no history of DVT or PE and again he has been taking all his medications including his Eliquis Test Results: [] Emergency Department Course and Treatment: [] Given all the above screening labs are obtained Reviewing the prior records the patient's had a Holter monitor where documents PVCs and A. fib A. fib that is paroxysmal, also reviewed inpatient notes from Dr. Richardson the patient had a cardiac cath that showed mild CAD and he has some diastolic dysfunction in the past on reevaluation the patient's lab studies are unremarkable potassium 3.4 chest x-ray unremarkable EKG currently shows a sinus rhythm nothing acute, troponin returns at 0.22 he has had troponins that elevated that range in the past he is having no anginal type chest pain, I spoke in detail with Dr. Richardson I spoke with the patient his family Dr. Richardson believe the patient be safely discharged outpatient follow-up as he is on all the prep medications and the A. fib is been paroxysmal the patient states he is feeling better he does not wish to be admitted he wants to go home he is comfortable following up as a precaution we did a duplex scan of the right leg and that was also negative he was given 1 K-Dur 40 mg 1 tablet while here Currently the patient's resting comfortably he is in a sinus rhythm with no complaints Treatment Plan: [] Disposition: [] Home stable Impression: [] Paroxysmal A. fib This note was generated with [employer] dictation software. It may contain incorrect words, spelling, and punctuation that were not noted in review of the chart prior to signing ED Disposition - Plan for ED Patient: Chief Complaint: Dizziness [facility]errals: [facility] [Primary Care Provider] -
[2017-11-17 12:31] LABS: Absolute Neutrophil Count 5.4 X10^3/uL (2.0-7.7); Basophil# 0.02 X10^3/uL; Basophil% 0.3 % (0-1); Eosinophil# 0.08 X10^3/uL; Hemoglobin 13.5 g/dl (13.0-16.5); Lymphocyte % 18.9 % (19-41); Mean Corp Hgb Conc 33.8 g/gl (32-36); Mean Corpuscular Hgb 28.9 pg (27.0-32.0); Mean Corpuscular Volume 85.7 fL (80-94); Mean Platelet Vol. 11.2 fl (6.2-12.0); Monocyte# 0.92 X10^3/uL; Monocyte% 11.6 % (0-10); Neutrophil % 68.1 % (47-70); Platelet Count 175 K/mm3 (150-450); RBC Distribution Width CV 13.7 % (11.6-14.6); RBC Distribution Width SD 42.5 fl (35.1-43.9); Red Blood Count 4.67 M/mm3 (4.6-6.2); White Blood Count 7.9 K/mm3 (4.4-11.0)
[2017-11-17 12:32] LABS: POSITIVE COUNT NO; POSITIVE DIFFERENTIAL NO; POSITIVE MORPHOLOGY NO
[2017-11-17 12:56] LABS: Anion Gap 8 (5-15); BUN 7 mg/dL (7-18); BUN/Creat Ratio 6.5 RATIO (10-20); Calcium,Total 8.8 mg/dL (8.5-10.1); Chloride 104 mmol/L (98-107); Creatinine, Serum 1.07 mg/dL (0.70-1.30); EST Glomerular Filtration Rate 73 mL/min (>60); Est Glom Filt Rate - Afr Amer 88 mL/min (>60); Estimated Creatinine Clearance 76.78 ml/min; Glucose 130 mg/dL (74-106); Potassium 3.4 mmol/L (3.5-5.1); Sodium Level 138 mmol/L (136-145)
--- NOTE | 2017-11-17 14:04 | ED.DEP ---
ED Disposition - Plan for ED Patient: Chief Complaint: Dizziness Instructions: ED Afib [facility]errals: [facility] [Primary Care Provider] - Emanuel Richardson MD [STAFF PHYSICIAN] -
[2017-11-17 14:32] VITALS: BP 180/76; PULSE 82; RESP 17; O2SAT 97
[2017-11-17 14:44] VITALS: BP 180/79; PULSE 78; RESP 16; O2SAT 96
== END 2017-11-17 14:50 | disposition home or self-care (01) ==
PROVIDERS: Emergency Provider Emergency Medicine
DX: I48.0 Paroxysmal atrial fibrillation (principal); I49.3 Ventricular premature depolarization; S80.11XA Contusion of right lower leg, initial encounter; W19.XXXA Unspecified fall, initial encounter; Y93.9 Activity, unspecified; Y92.9 Unspecified place or not applicable; I25.10 Atherosclerotic heart disease of native coronary artery without angina pectoris; I10 Essential (primary) hypertension; Z79.01 Long term (current) use of anticoagulants; Z79.82 Long term (current) use of aspirin; Z79.899 Other long term (current) drug therapy
CPT/HCPCS: 71045; 80048; 84484; 85025; 93005; 93971; 99285; A4216

== ENCOUNTER 2017-12-02 01:13 | Emergency (ER) | payer OTHER, SELFPAY ==
[2017-12-02 01:13] VITALS: BP 166/81; PULSE 58; RESP 16; TEMP 36.6; BMI 31.2
[2017-12-02] MEDS: oxyCODONE 5 MG Tablet PO (01:54)
--- NOTE | 2017-12-02 03:51 | ED.VISSUMM ---
- ER Visit Summary Date of Service: 12/02/17 Chief Complaint: Back pain History of Present Illness: The patient is a 72 M intermittent right-sided back pain radiating down the side of the leg to the knee for the past 3-4 months. No acute injuries. Symptoms worse with standing relieved with sitting. No loss of bowel or bladder control. Patient states leg did give out had a fall and 12 seen in the ED with a contusion. Saw chiropractor week ago with adjustment. Symptoms are worsening. He is on Eliquis for history of paroxysmal A. fib. Using Tylenol with no relief. States similar symptoms in the past, however less severe. Physical Examination: General: Alert and oriented ?3, no acute distress HEENT: Normocephalic, atraumatic. Moist mucosa membranes Neck: supple, nontender. Cardiovascular: Regular rate and rhythm, no murmurs Respiratory: Normal breath sounds, symmetric, no distress Abdomen: Soft, nontender, nondistended Back: Midline tenderness L2-L3, straight leg test is negative, 1+ patellar reflex bilaterally. Distal pulses intact. Extremities: Nontender, no edema, pulses intact ?4 Neuro: no focal neurological deficits. Test Results: Lumbar x-ray: Degenerative changes. Emergency Department Course and Treatment: Patient with no cauda equina symptoms. Due to being on Eliquis, NSAIDs were avoided. Given dose of oxycodone. X-ray notes degenerative changes. History concerns for sciatica symptoms. OARRS report was negative. Short prescription for pain control. Follow-up with his [place] physician. Treatment Plan: [] Disposition: Discharge Impression: Sciatica right side This note was generated with [employer] dictation software. It may contain incorrect words, spelling, and punctuation that were not noted in review of the chart prior to signing ED Disposition - Plan for ED Patient: Disposition: Home or Assisted Living Chief Complaint: Back Diagnosis: Sciatica Instructions: ED Sciatica Prescriptions: Oxycodone HCl/Acetaminophen [Percocet 5/325] 1 tablet PO Q6H PRN PRN 3 Days #12 tablet PRN Reason: Pain Referrals: Care Physician,No Primary [Primary Care Provider] - Additional Instructions: [facility] days
--- NOTE | 2017-12-02 03:54 | ED.DCSUM_ITS ---
- ER Visit Summary Date of Service: 12/02/17 Chief Complaint: Back pain History of Present Illness: The patient is a 72 M intermittent right-sided back pain radiating down the side of the leg to the knee for the past 3-4 months. No acute injuries. Symptoms worse with standing relieved with sitting. No loss of bowel or bladder control. Patient states leg did give out had a fall and 12 seen in the ED with a contusion. Saw chiropractor week ago with adjustment. Symptoms are worsening. He is on Eliquis for history of paroxysmal A. fib. Using Tylenol with no relief. States similar symptoms in the past, however less severe. Physical Examination: General: Alert and oriented ?3, no acute distress HEENT: Normocephalic, atraumatic. Moist mucosa membranes Neck: supple, nontender. Cardiovascular: Regular rate and rhythm, no murmurs Respiratory: Normal breath sounds, symmetric, no distress Abdomen: Soft, nontender, nondistended Back: Midline tenderness L2-L3, straight leg test is negative, 1+ patellar reflex bilaterally. Distal pulses intact. Extremities: Nontender, no edema, pulses intact ?4 Neuro: no focal neurological deficits. Test Results: Lumbar x-ray: Degenerative changes. Emergency Department Course and Treatment: Patient with no cauda equina symptoms. Due to being on Eliquis, NSAIDs were avoided. Given dose of oxycodone. X-ray notes degenerative changes. History concerns for sciatica symptoms. OARRS report was negative. Short prescription for pain control. Follow-up with his [place] physician. Treatment Plan: [] Disposition: Discharge Impression: Sciatica right side This note was generated with [employer] dictation software. It may contain incorrect words, spelling, and punctuation that were not noted in review of the chart prior to signing ED Disposition - Plan for ED Patient: Disposition: Home or Assisted Living Chief Complaint: Back Diagnosis: Sciatica Instructions: ED Sciatica Prescriptions: Oxycodone HCl/Acetaminophen [Percocet 5/325] 1 tablet PO Q6H PRN PRN 3 Days #12 tablet PRN Reason: Pain Referrals: Care Physician,No Primary [Primary Care Provider] - Additional Instructions: [facility] days
[2017-12-02 04:01] VITALS: BP 162/84; PULSE 66; RESP 18; O2SAT 97
== END 2017-12-02 04:03 | disposition home or self-care (01) ==
PROVIDERS: Emergency Provider Emergency Medicine
DX: M54.41 Lumbago with sciatica, right side (principal); I48.0 Paroxysmal atrial fibrillation; Z79.01 Long term (current) use of anticoagulants; Z79.82 Long term (current) use of aspirin; Z79.899 Other long term (current) drug therapy
CPT/HCPCS: 72100; 99283

== ENCOUNTER 2018-02-25 18:52 | Emergency (ER) | payer OTHER, SELFPAY ==
[2018-02-25 18:54] VITALS: BP 157/77; PULSE 77; RESP 22; TEMP 36.6; O2SAT 97; BMI 31.8
--- NOTE | 2018-02-25 19:45 | EKG12_ITS ---
Test Reason : SHORTNESS OF BREATH Blood Pressure : / mmHG Vent. 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
--- NOTE | 2018-02-25 20:21 | RAD_ITS ---
STUDY: X-RAY CHEST REASON FOR EXAM: Male, 72 years old. Chest pain TECHNIQUE: PA and lateral views of the chest. COMPARISON: 11/17/2017 FINDINGS: EKG leads overlie the chest Lungs are expanded. Since the previous study, there is been development of interstitial edema particularly in the lower half of both lung cordova. Follow-up recommended to assure resolution. No organized infiltrate. There is a small right pleural effusion. Normal size heart. Normal mediastinum and rosendo. Normal visualized pulmonary arteries. Normal visualized aortic arch and descending thoracic aorta. Normal visualized thoracic spine. Normal visualized ribs, clavicles, and shoulders. There is no demonstrated abnormality of the visualized soft tissue structures of the upper abdomen. RAD/Chest PA and Lateral IMPRESSION: Interstitial edema with small right pleural effusion. Follow-up recommended to assure resolution Electronically Signed: Johnathan Daugherty MD at 21:48 EST , Service support ,
[2018-02-25] MEDS: Mag Hydrox/Al Hydrox/Simeth 30 ML UDC PO (20:22)
[2018-02-25 20:38] LABS: Absolute Lymphocyte Count 1.79 X10^3/ul (0.83-4.51); Absolute Neutrophil Count 6.8 X10^3/uL (2.0-7.7); Basophil# 0.05 X10^3/uL; Basophil% 0.5 % (0-1); Eosinophil# 0.09 X10^3/uL; Eosinophils% 0.9 % (0-5); Hematocrit 36.1 % (40-54); Hemoglobin 11.9 g/dl (13.0-16.5); Lymphocyte # 1.79 X10^3/ul (4.0); Lymphocyte % 18.2 % (19-41); Mean Corpuscular Hgb 27.7 pg (27.0-32.0); Mean Corpuscular Volume 84.1 fL (80-94); Mean Platelet Vol. 11.3 fl (6.2-12.0); Monocyte# 1.06 X10^3/uL; Monocyte% 10.8 % (0-10); Neutrophil # 6.82 X10^3/uL (2.7-7.7); Neutrophil % 69.4 % (47-70); POSITIVE COUNT NO; POSITIVE DIFFERENTIAL NO; POSITIVE MORPHOLOGY NO; Platelet Count 216 K/mm3 (150-450); RBC Distribution Width CV 15.3 % (11.6-14.6); RBC Distribution Width SD 47.1 fl (35.1-43.9); Red Blood Count 4.29 M/mm3 (4.6-6.2); White Blood Count 9.8 K/mm3 (4.4-11.0)
[2018-02-25 20:44] LABS: Anion Gap 8 (5-15); BUN 10 mg/dL (7-18); BUN/Creat Ratio 9.2 RATIO (10-20); Calcium,Total 8.6 mg/dL (8.5-10.1); Chloride 102 mmol/L (98-107); Creatinine, Serum 1.09 mg/dL (0.70-1.30); EST Glomerular Filtration Rate 71 mL/min (>60); Est Glom Filt Rate - Afr Amer 86 mL/min (>60); Estimated Creatinine Clearance 75.37 ml/min; Glucose 120 mg/dL (74-106); Potassium 4.1 mmol/L (3.5-5.1); Sodium Level 135 mmol/L (136-145)
[2018-02-25 21:03] LABS: BNP,B-Type NATRIURETIC PEPTIDE 357.9 pg/mL (0-100)
[2018-02-25 21:17] VITALS: BP 132/69; PULSE 60; RESP 16; O2SAT 96
--- NOTE | 2018-02-25 22:15 | ED.VISSUMM ---
- ER Visit Summary Date of Service: 02/25/18 Chief Complaint: Short of breath, cough History of Present Illness: The patient is a 72 M who presents with a 3-day history of cough with yellow to green colored sputum. He eating fluid collection around his lungs. Reports some mild wheezing. He states he is not able to lie down flat at night. He thinks he is in the computer he does have a documented history of CHF, although the patient denies a known history. He used to be on water pills but states the [facility] took him off. He does describe a burning sensation through his chest into his upper abdomen. He states he believes that his reflux disease. He has been taking extra doses of his omeprazole without improvement. Physical Examination: Blood pressure is 157/77, other vitals normal. Patient sitting upright in bed no acute distress. He speaking full sentences. Head and neck examination unremarkable. Heart is regular rate and rhythm. Lungs sounds are clear. Abdomen is soft nontender. Lower external examination reveals 2+ edema that is symmetric in the lower legs. He has an old healing abrasion over the right lower hassan. Test Results: EKG is a flutter at [address] change. Two-view chest x-ray shows interstitial edema with small right pleural effusion. CBC was normal white count hemoglobin of 11.9. Troponin is 0.112. BNP is 357. Emergency Department Course and Treatment: On review of prior records, patient has had a chronically elevated troponin. He was seen in December and had actually had a troponin higher than today's value. 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 Patient was given a GI cocktail today and the burning sensation in his chest is completely resolved. He states this felt more like his reflux pain as opposed to cardiac etiology. Test results were discussed with patient and family at bedside. I believe the patient does need to go back on diuretics. He will be given Lasix and will start taking this medication in the morning. We will also write him for Prevacid to help control his reflux. He will follow-up with his doctors [facility]. Treatment Plan: [] Disposition: Discharge Impression: CHF This note was generated with [employer] dictation software. It may contain incorrect words, spelling, and punctuation that were not noted in review of the chart prior to signing ED Disposition - Plan for ED Patient: Disposition: Home or Assisted Living Chief Complaint: Shortness of Breath Instructions: ED CHF General Prescriptions: Furosemide [Lasix] 40 mg PO DAILY #10 tablet Lansoprazole [Prevacid] 30 mg PO DAILY #30 capsule [facility] [[facility] - 1-2 Weeks
[2018-02-25 22:22] VITALS: BP 138/67; PULSE 78; RESP 16; O2SAT 96
[2018-02-25] MEDS: Furosemide 40 MG Tablet PO (22:38)
== END 2018-02-25 22:38 | disposition home or self-care (01) ==
PROVIDERS: Emergency Provider Emergency Medicine
DX: I11.0 Hypertensive heart disease with heart failure (principal); I50.9 Heart failure, unspecified; K21.9 Gastro-esophageal reflux disease without esophagitis; I25.10 Atherosclerotic heart disease of native coronary artery without angina pectoris; Z87.891 Personal history of nicotine dependence; Z79.01 Long term (current) use of anticoagulants; Z79.82 Long term (current) use of aspirin; Z79.899 Other long term (current) drug therapy
CPT/HCPCS: 71046; 80048; 83880; 84484; 85025; 93005; 99285; A4216

== ENCOUNTER 2018-03-20 09:38 | Emergency (ER) | payer OTHER, MEDICARE, SELFPAY ==
[2018-03-20] VITALS (14 sets, daily range): BP systolic 122–154; BP diastolic 64–82; PULSE 43–59; RESP 14–19; TEMP 36.7–37; O2SAT 95–98; BMI 33.0
--- NOTE | 2018-03-20 10:22 | EKG12_ITS ---
Test Reason : SOB Blood Pressure : / mmHG Vent. Rate : 053 BPM Atrial Rate : 326 BPM P-R Int : 000 ms QRS Dur : 104 ms QT Int : 466 ms P-R-T Axes : 000 -47 009 degrees QTc Int : 437 ms Atrial fibrillation with slow ventricular response Left axis deviation Inferior infarct , age undetermined Abnormal ECG Confirmed by JONATHON ORO, PIEDAD ([id number]), sound editor BRENDA KULKARNI ([id number] on 03/24/2018 1:22:14 PM Referred By: JOHN Confirmed By:PIEDAD HOLT MD
--- NOTE | 2018-03-20 10:27 | ED.DCSUM_ITS ---
- ER Visit Summary Date of Service: 03/20/18 Chief Complaint: Shortness of breath History of Present Illness: The patient is a 72 M history of CHF, hypertension and prior A. fib. Patient states that for the last 2 weeks he had shortness of breath. Worse supine. Denies any chest pain. No fever. Mild cough of greenish phlegm. No hemoptysis. No significant weight change. No severe leg swelling or calf pain. No history of DVT or PE. Currently he is on anticoagulation Eliquis for his known A. fib. Physical Examination: Older male. No acute distress. Vital signs are stable. Afebrile. Pulse ox 97% on room air no signs of hypoxia. HEENT exam unremarkable. Neck nontender. No JVD. No lymphadenopathy. Lungs clear to auscultation bilaterally. Heart irregularly irregular rate about 50. A. fib. No significant murmur. Abdomen soft nontender. Normal bowel sounds no peritoneal signs. Patient moving all 4 extremities. Neurovascular intact. Calves are nontender. He does have trace edema both lower extremities is equal and symmetrical. Neurologically is awake alert with no focal motor deficits. Test Results: Chest x-ray shows no acute abnormality. Chronic changes. EKG is A. fib rate of 53 with no signs of ischemia. CBC shows a white count 8. Hemoglobin 11.6 which is his baseline. Chemistries are normal. Gap of 9. Creatinine 1.1. Troponin is slightly elevated at 0.115 chronically has elevated troponins. His BNP is elevated at 398. Consistent with congestive heart failure and his history of being more short of breath supine. Emergency Department Course and Treatment: Patient ambulated without any difficulty at 1530. His pulse ox stayed 96-97% or better. He is comfortable being discharged home. He will be started back on his normal Lasix dose. And follow-up with his funeral arrangement director Dr. Chin. Treatment Plan: Discharged home. Restart his Lasix. Follow-up with his funeral arrangement director. Disposition: Discharge Impression: Acute dyspnea secondary to acute on chronic A. fib with mild CHF Acute on chronic A. fib with bradycardia Anticoagulated on Eliquis This note was generated with [employer] software. It may contain incorrect words, spelling, and punctuation that were not noted in review of the chart prior to signing ED Disposition - Plan for ED Patient: Chief Complaint: Cough [facility]: [facility] [Primary [facility] Provider] -
[2018-03-20 10:42] LABS: Absolute Lymphocyte Count 1.47 X10^3/ul (0.83-4.51); Absolute Neutrophil Count 6.3 X10^3/uL (2.0-7.7); Basophil# 0.04 X10^3/uL; Basophil% 0.4 % (0-1); Eosinophil# 0.06 X10^3/uL; Eosinophils% 0.7 % (0-5); Hematocrit 35.9 % (40-54); Hemoglobin 11.6 g/dl (13.0-16.5); Lymphocyte # 1.47 X10^3/ul (4.0); Lymphocyte % 16.5 % (19-41); Mean Corp Hgb Conc 32.3 g/gl (32-36); Mean Corpuscular Hgb 27.3 pg (27.0-32.0); Mean Corpuscular Volume 84.5 fL (80-94); Mean Platelet Vol. 11.9 fl (6.2-12.0); Monocyte# 1.04 X10^3/uL; Monocyte% 11.7 % (0-10); Neutrophil # 6.27 X10^3/uL (2.7-7.7); Neutrophil % 70.3 % (47-70); POSITIVE COUNT NO; POSITIVE DIFFERENTIAL NO; POSITIVE MORPHOLOGY NO; Platelet Count 169 K/mm3 (150-450); RBC Distribution Width CV 14.9 % (11.6-14.6); RBC Distribution Width SD 45.4 fl (35.1-43.9); Red Blood Count 4.25 M/mm3 (4.6-6.2); White Blood Count 8.9 K/mm3 (4.4-11.0)
--- NOTE | 2018-03-20 10:45 | RAD_ITS ---
STUDY: X-RAY CHEST REASON FOR EXAM: Male, 72 years old. Chest pain. TECHNIQUE: PA and lateral views of the chest. COMPARISON: Comparison is made with prior study dated February 25, 2018. FINDINGS: EKG electrodes are seen. Hyperinflation. Stable increased interstitial markings at the lung bases. This is suggestive of scarring. Blunting of both costophrenic angles posteriorly. There is mild cardiac enlargement. Normal mediastinum and rosendo. Normal visualized pulmonary arteries. There is atherosclerotic calcification of the aortic arch with tortuosity. Normal visualized thoracic spine. Normal visualized ribs, clavicles, and shoulders. There is no demonstrated abnormality of the visualized soft tissue structures of the upper abdomen. RAD/Chest PA and Lateral IMPRESSION: Stable mild increased markings at the lung bases suggestive of scarring with blunting of both costophrenic angles. Electronically Signed: Thomas Brooks MD at 11:10 EST Tel [phone], Service support ,
[2018-03-20 11:01] LABS: Anion Gap 9 (5-15); BUN 13 mg/dL (7-18); BUN/Creat Ratio 11.3 RATIO (10-20); Calcium,Total 8.9 mg/dL (8.5-10.1); Chloride 105 mmol/L (98-107); Creatinine, Serum 1.15 mg/dL (0.70-1.30); EST Glomerular Filtration Rate 67 mL/min (>60); Est Glom Filt Rate - Afr Amer 81 mL/min (>60); Estimated Creatinine Clearance 71.44 ml/min; Glucose 121 mg/dL (74-106); Potassium 4.2 mmol/L (3.5-5.1); Sodium Level 138 mmol/L (136-145)
[2018-03-20 11:10] LABS: BNP,B-Type NATRIURETIC PEPTIDE 398.5 pg/mL (0-100)
--- NOTE | 2018-03-20 15:45 | ED.DEP ---
ED Disposition - Plan for ED Patient: Disposition: Home or Assisted Living Chief Complaint: Cough Instructions: ED CHF General Prescriptions: Furosemide [Lasix] 20 mg PO DAILY #30 tab Referrals: Emanuel Richardson MD [STAFF PHYSICIAN] - As soon as possible Additional Instructions: Call follow-up with for his office as soon as possible. I think her shortness of breath is secondary to your A. fib and also mild congestive heart failure. We will restart your Lasix. After seen prior dose. Return to the ER if you are feeling worse.
--- OUTSIDE RECORDS SUMMARY | 2018-06-22 00:26 | XMS RPT_ITS ---
:1945 Author Organization OHIP Support Name Relationship Address Phone CAYLAJORGE Unavailable [address] + [place] [address] R Unavailable Unavailable Unavailable JORGE KULKARNI Unavailable [address] + [place] [address] R Unavailable Unavailable Unavailable JORGE KULKARNI Unavailable [address] + [place] [address] R Unavailable Unavailable Unavailable JORGE KULKARNI Unavailable [address] + [place] [address] R Unavailable Unavailable Unavailable JORGE KULKARNI Unavailable [address] + [place] [address] R Unavailable Unavailable Unavailable R Unavailable Unavailable Unavailable LISSETH KULKARNIRIA Unavailable [address] + [place] [address] JORGE KULKARNI Unavailable [address] + [place] [address] R Unavailable Unavailable Unavailable JORGE KULKARNI Unavailable [address] + [place] [address] R Unavailable Unavailable Unavailable R Unavailable Unavailable Unavailable JORGE KULKARNI Unavailable [address] + [place] [address] R Unavailable Unavailable Unavailable R Unavailable Unavailable Unavailable LISSETH KULKARNIRIA Unavailable [address] + [place] [address] R Unavailable Unavailable Unavailable LISSETH KULKARNIRIA Unavailable [address] + [place] [address] R Unavailable Unavailable Unavailable JORGE KULKARNI Unavailable [address] + [place] [address] R Unavailable Unavailable Unavailable R Unavailable Unavailable Unavailable LISSETH KULKARNIRIA Unavailable [address] + [place] [address] R Unavailable Unavailable Unavailable KULKARNI, JASWINDER Unavailable [address] + [place] [address] R Unavailable Unavailable Unavailable KULKARNI, JASWINDER Unavailable [address] + [place] [address] R Unavailable Unavailable Unavailable KULKARNI, JASWINDER Unavailable [address] + [place] [address] R Unavailable Unavailable Unavailable KULKARNI, JASWINDER Unavailable [address] + [place] [address] R Unavailable Unavailable Unavailable KULKARNI, JASWINDER Unavailable [address] + [place] [address] R Unavailable Unavailable Unavailable Care Team Providers Name Role Phone [facility] Ajit Romo Attending Unavailable Ramin Grace Attending Unavailable Dylan, Osteen Referring [facility] Admitting Unavailable [facility] Attending Unavailable Dylan, Osteen Consulting Unavailable [facility] Admitting Unavailable Nakia, Ken Attending [facility]available [facility] Unavailable Dylan, Emanuel Consulting Unavailable [facility] Consulting Unavailable [facility] Admitting Unavailable Dylan, Osteen Attending Un[facility] Unavailable Dylan, Osteen Consulting Unavailable [facility] Consulting Unavailable Ross Kamara Attending Un[facility] Admitting [facility] Unavailable Dylan, Osteen Consulting Unavailable [facility], Ken Attending Unavailable [facility] Consulting Unavailable Dylan, Emanuel Attending Unavailable Dylan, Emanuel Attending Unavailable Dylan, Emanuel Attending Unavailable Sincere Arteaga Referring Unavailable Jasmin Coelho Attending [facility]available [facility] Unavailable Timur Saleem Attending [facility] Unavailable Rakesh Garnett Attending Unavailable Alicia Holliday Attending Unavailable Dylan, Emanuel Attending [facility] Referring [facility] Unavailable Toro Melendez Attending [facility] Unavailable Nohemi Hunter Attending Unavailable PROBLEMS PROBLEMS DATE TYPE CONDITION / CODE ATTENDING STATUS SOURCE 04/17/2018 Unknown I48.0 - Paroxysmal Ramin Grace Active [facility] atrial fibrillation / Community I48.0(ICD-10) Hospital Repository 04/17/2018 Unknown I50.32 - Chronic Ramin Grace Active [place] diastolic (congestive) [facility] heart failure / Hospital I50.32(ICD-10) Repository 04/17/2018 Unknown R06.09 - Other forms Ramin Grace Active [place] of dyspnea / Community R06.09(ICD-10) Hospital Repository 04/17/2018 Unknown 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 / I25.10(ICD-10) 04/17/2018 Unknown I10 - Essential Ramin Grace Active [place] (primary) hypertension Community / I10(ICD-10) Hospital Repository 02/13/2018 Unknown M54.9 - Dorsalgia, Le, Toro Active [place] unspecified / Community M54.9(ICD-10) Hospital Repository 02/13/2018 Unknown R00.2 - Palpitations / Jwayyed, Active [facility] R00.2(ICD-10) [facility] 01/23/2018 Unknown M79.604 - Pain in Schwiger, Timur Active [place] right leg / Community M79.604(ICD-10) Hospital Repository 01/05/2018 Unknown 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, 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, unspecified Community / I45.9(ICD-10) Hospital Repository 10/31/2017 Unknown R07.9 - Chest pain, Nakia, Ken Active [place] unspecified / Community R07.9(ICD-10) Hospital Repository 09/20/2017 Unknown R07.89 - Other chest Dylan, Osteen Active [place] pain / R07.89(ICD-10) [facility] Hospital Repository 09/20/2017 Unknown R94.31 - Abnormal Dylan, Osteen Active [place] electrocardiogram Community [ECG] [EKG] / Hospital R94.31(ICD-10) Repository 09/20/2017 Unknown R06.02 - Shortness of Dylan, Emanuel Active [place] breath / Community R06.02(ICD-10) Hospital Repository PROCEDURES PROCEDURES No Procedure Records FoundRESULTS RESULTS 12 LEAD ELECTROCARDIOGRAM Observed: 03/24/2018 Status: F Source: [facility] Cardiovascular Services [address] [place] [address] 12 Lead EKG 03/20/18 0941 MR#: [id number] Acct: [id number] Name: BRANDON KULKARNI Rep #: [id number] : 1945 72 From: Emanuel Schofield MD Attending Dr: Status: DEP ER Ordering Dr: Ajit Romo MD Date: 03/20/18 Location: ED Sex: M C Admitted: Test Reason : SOB Blood Pressure : / mmHG Vent. Rate : 053 BPM Atrial Rate : 326 BPM P-R Int : 000 ms QRS Dur : 104 ms QT Int : 466 ms P-R-T Axes : 000 -47 009 degrees QTc Int : 437 ms Atrial fibrillation with slow ventricular response Left axis deviation Inferior infarct , age undetermined Abnormal ECG Confirmed by DYLAN ORO, EMANUEL ([id number]), editor greeting card BRENDA KULKARNI ([id number]) on 03/24/2018 1:22:14 PM Referred By: JOHN Confirmed By:EMANUEL SCHOFIELD MD 03/24/18 1322 Date Emanuel Schofield MD CC: [facility]; Ajit Romo MD Signed EMERGENCY DEPARTMENT Observed: 03/20/2018 Status: F Source: [facility] SUMMARY 4:29 PM [facility] REPOSITORY [facility] Medical Records Department [address] [place] [address] Emergency Department Summary 03/20/18 1025 MR#: [id number] Acct: [id number] Name: BRANDON KULKARNI Rep #: [id number] : 1945 72 From: Ajit Romo MD [place]CP: [place] Status: DEP ER - ER Visit Summary Date of Service: 03/20/18 Chief Complaint: Shortness of breath History of Present Illness: The patient is a 72 M history of CHF, hypertension and prior A. fib. Patient states that for the last 2 weeks he had shortness of breath. Worse supine. Denies any chest pain. No fever. Mild cough of greenish phlegm. No hemoptysis. No significant weight change. No severe leg swelling or calf pain. No history of DVT or PE. Currently he is on anticoagulation Eliquis for his known A. fib. Physical Examination: Older male. No acute distress. Vital signs are stable. Afebrile. Pulse ox 97% on room air no signs of hypoxia. HEENT exam unremarkable. Neck nontender. No JVD. No lymphadenopathy. Lungs clear to auscultation bilaterally. Heart irregularly irregular rate about 50. A. fib. No significant murmur. Abdomen soft nontender. Normal bowel sounds no peritoneal signs. Patient moving all 4 extremities. Neurovascular intact. Calves are nontender. He does have trace edema both lower extremities is equal and symmetrical. Neurologically is awake alert with no focal motor deficits. Test Results: Chest x-ray shows no acute abnormality. Chronic changes. EKG is A. fib rate of 53 with no signs of ischemia. CBC shows a white count 8. Hemoglobin 11.6 which is his baseline. Chemistries are normal. Gap of 9. Creatinine 1.1. Troponin is slightly elevated at 0.115 chronically has elevated troponins. His BNP is elevated at 398. Consistent with congestive heart failure and his history of being more short of breath supine. Emergency Department Course and Treatment: Patient ambulated without any difficulty at 1530. His pulse ox stayed 96-97% or better. He is comfortable being discharged home. He will be started back on his normal Lasix dose. And follow-up with his copy director Dr. Chin. Treatment Plan: Discharged home. Restart his Lasix. Follow- up with his copy director. Disposition: Discharge Impression: Acute dyspnea secondary to acute on chronic A. fib with mild CHF Acute on chronic A. fib with bradycardia Anticoagulated on Eliquis This note was generated with [employer] dictation software. It may contain incorrect words, spelling, and punctuation that were not noted in review of the chart prior to signing ED Disposition - Plan for ED Patient: Chief Complaint: Cough [facility]] - What to do if you have Problems For any increased pain, shortness of breath, bleeding, nausea or vomiting, chest pain, or any unexpected problems, contact your Primary Care Provider. Call [facility] ([phone]) or report to the closest Emergency Room. Call 911 if necessary. [id number] <Electronically signed by Ajit Romo MD> Date Ajit Romo MD Cosigner Signature (If Indicated): Date CC: [place] [facility] DISCHARGE INSTRUCTION Observed: 03/20/2018 Status: F Source: [facility] 4:28 PM [facility] REPOSITORY [facility] Medical Records Department [address] [place] [address] Discharge Instruction 03/20/18 1545 MR#: [id number] Acct: [id number] Name: BRANDON KULKARNI Rep #: [id number] : 1945 72 From: Ajit Romo MD PCP: [facility], [place] Status: DEP ER ED Disposition - Plan for ED Patient: Disposition: Home or Assisted Living Chief Complaint: Cough Instructions: ED CHF General Prescriptions: Furosemide [Lasix] 20 mg PO DAILY #30 tab Referrals: Emanuel Schofield MD [STAFF PHYSICIAN] - As soon as possible Additional Instructions: Call follow-up with for his office as soon as possible. I think her shortness of breath is secondary to your A. fib and also mild congestive heart failure. We will restart your Lasix. After seen prior dose. Return to the ER if you are feeling worse. What to do if you have Problems For any increased pain, shortness of breath, bleeding, nausea or vomiting, chest pain, or any unexpected problems, contact your Primary Care Provider. Call [facility] ([phone]) or report to the closest Emergency Room. Call 911 if necessary. 03/20/181627 <Electronically signed by Ajit Romo MD> Date Ajit Romo MD Cosigner Signature (If Indicated): Date CC: [facility] CBC W/DIFF, AUTOMATED Collected: 03/20/2018 Status: F Source: [facility] 10:30 AM [facility] REPOSITORY TYPE CODE TESTS RESULT OUT OF RANGE REFERENCE UNITS LAB L100.1000 4.4-11.0 K/mm3 Normal WBC 8.9 LAB L100.1200 4.6-6.2 M/mm3 Low RBC 4.25 LAB L100.1300 13.0-16.5 g/dl Low HGB 11.6 LAB L100.1400 40-54 % Low HCT 35.9 LAB L100.1500 80-94 fL Normal MCV 84.5 LAB L100.1600 27.0-32.0 pg Normal MCH 27.3 LAB L100.1700 32-36 g/gl Normal MCHC 32.3 LAB L100.1810 11.6-14.6 % High RDW CV 14.9 LAB L100.1820 35.1-43.9 fl High RDW SD 45.4 LAB L100.1900 150-450 K/mm3 Normal PLT 169 LAB L100.2000 6.2-12.0 fl Normal MPV 11.9 LAB L100.2100 47-70 % High NEUT% 70.3 LAB L100.2200 19-41 % Low LY% 16.5 LAB L100.2300 0-10 % High MONO% 11.7 LAB L100.2400 0-5 % Normal EO% 0.7 LAB L100.2500 0-1 % Normal BASO% 0.4 LAB L100.2550 0.0-0.9 % Normal IM GRAN % 0.400 Result Comment: IG% - Immature Granulocytes (promyelocytes, myelocytes and metamyelocytes) > 1% indicates that a LEFT SHIFT is Present. LAB L100.2620 2.0-7.7 X10 3/uL Normal Absolute Neut 6.3 LAB L100.2720 0.83-4.51 X10 3/ul Normal Absolute Lymph 1.47 Performed By: #### L100.0100 #### [facility] [address] [place], [address] BASIC METABOLIC Collected: 03/20/2018 Status: F Source: [facility] PROFILE (BMP) 10:30 AM [facility] REPOSITORY TYPE CODE TESTS RESULT OUT OF RANGE REFERENCE UNITS LAB L501.0100 74-106 mg/dL High GLU 121 Result Comment: Fasting Glucose result from 100 to 125 mg/dL suggests IMPAIRED HOMEOSTASIS per A.D.A. criteria. Please note revised GLUCOSE reference range effective 2017. LAB L501.1000 7-18 mg/dL Normal BUN 13 LAB L501.1100 0.70-1.30 mg/dL Normal CREAT,SERUM 1.15 Result Comment: The validity of the calculated GFR AND GFRAA in patients over 70 years has not been determined. Clinical correlation is essential. LAB L501.1110 >60 mL/min Normal EST GFR 67 Result Comment: Non- GFR Calc LAB L501.1115 >60 mL/min Normal EST GFR - AA 81 Result Comment: GFR Calc LAB L501.1255 ml/min Normal Estimated CRCL 71.44 LAB L501.1300 10-20 RATIO Normal BUN/CRE 11.3 LAB L501.2200 8.5-10 mg/dL Normal .1 CA 8.9 LAB L501.5300 136-14 mmol/L Normal 5 NA 138 LAB L501.5600 3.5-5. mmol/L Normal 1 K 4.2 LAB L501.5900 98-107 mmol/L Normal CL 105 LAB L501.6100 21.0-3 mmol/L Normal 2.0 CO2 24.0 LAB L501.6200 5-15 Normal GAP 9 Performed By: #### L500.2500, L501.4010 #### [facility] [address] [place], [address] TROPONIN-I Collected: 03/20/2018 Status: F Source: [place] 10:30 AM [facility] REPOSITORY TYPE CODE TESTS RESULT OUT OF RANGE REFERENCE UNITS LAB L501.4010 <0.045 ng/mL High 0.115 TROPONIN-I Result Comment: TROPONIN-I EXPECTED VALUES <0.045 Negative 0.045 - 0.590 Consistent with Cardiac Damage > OR = 0.600 Critical Value Not every elevated troponin is indicative of NC. These values should be used with clinical judgement in examining the patient's clinical picture for diagnosis. To establish a diagnosis of NC versus myocardial injury, there must be a demonstrated rise and/or fall in the troponin values, in addition to ischemic symptoms, EKG changes, new regional wall motion abnormality, and/or angiographical evidence. PLEASE NOTE: REFERENCE RANGES EDITED 17 Performed By: #### L500.2500, L501.4010 #### [facility] [address] [place], [address] BNP,B-TYPE NATRIURETIC Collected: 03/20/2018 Status: F Source: [place] PEPTIDE 10:30 AM [facility] REPOSITORY TYPE CODE TESTS RESULT OUT OF RANGE REFERENCE UNITS LAB L503.6620 0-100 pg/mL High B-TYPE 398.5 HOA PEP Performed By: #### L503.6620 #### [facility] [address] [place], [address] CHEST PA AND LATERAL Observed: 03/20/2018 Status: F Source: [place] 10:24 AM [facility] REPOSITORY [facility] Imaging Services [address] [place] [address] Chest PA and Lateral MR#: [id number] Acct: [id number] Name: BRANDON KULKARNI Rep #: [id number] : 1945 M 72 From: Thomas Brooks MD PCP: [facility], [place] Status: REG ER Study: Chest PA and Lateral Date of Exam: 03/20/18 Exam# [id number] Ordering Dr: Ajit Romo MD STUDY: X-RAY CHEST REASON FOR EXAM: Male, 72 years old. Chest pain. TECHNIQUE: PA and lateral views of the chest. COMPARISON: Comparison is made with prior study dated February 25, 2018. FINDINGS: EKG electrodes are seen. Hyperinflation. Stable increased interstitial markings at the lung bases. This is suggestive of scarring. Blunting of both costophrenic angles posteriorly. There is mild cardiac enlargement. Normal mediastinum and rosendo. Normal visualized pulmonary arteries. There is atherosclerotic calcification of the aortic arch with tortuosity. Normal visualized thoracic spine. Normal visualized ribs, clavicles, and shoulders. There is no demonstrated abnormality of the visualized soft tissue structures of the upper abdomen. RAD/Chest PA and Lateral IMPRESSION: Stable mild increased markings at the lung bases suggestive of scarring with blunting of both costophrenic angles. Electronically Signed: Thomas Brooks MD at 11:10 EST Tel [phone], Service support , CC: [facility]; Ajit Romo MD Heel Coverer: Signed 12 LEAD ELECTROCARDIOGRAM Observed: 03/03/2018 Status: F Source: [place] 9:23 AM [facility] REPOSITORY [facility] Cardiovascular Services [address] [place] [address] 12 Lead EKG 02/25/182003 MR#: [id number] Acct: [id number] Name: BRANDON KULKARNI Rep #: [id number] : 1945 72 From: Emanuel Schofield MD Attending Dr: Status: DEP ER Ordering Dr: Nohemi Hunter MD Date: 02/25/18 Location: ED Sex: M C Admitted: Test Reason : SHORTNESS OF BREATH Blood Pressure : / mmHG Vent. Rate : 063 BPM Atrial Rate : 300 BPM P-R Int : 000 ms QRS Dur : 102 ms QT Int : 434 ms P-R-T Axes : 000 -30 009 degrees QTc Int : 444 ms Atrial flutter with variable A-V block Left axis deviation Low voltage QRS Inferior infarct (cited on or before 31-AUG-2014) Abnormal ECG Confirmed by EMANUEL SCHOFIELD MD ([id number]), editor greeting card SEAN ADAM ([id number]) on 02/27/2018 2:16:26 PM Referred By: SANTIAGO Confirmed By:EMANUEL SCHOFIELD MD 02/27/18 1416 Date Emanuel Schofield MD CC: [place] [facility]; Nohemi Hunter MD Signed EMERGENCY DEPARTMENT Observed: 02/26/2018 Status: F Source: [place] SUMMARY 1:47 AM [facility] REPOSITORY [facility] Medical Records Department [address] [place] [address] Emergency Department Summary 02/25/18 2215 MR#: [id number] Acct: [id number] Name: BRANDON KULKARNI Rep #: [id number] : 1945 72 From: Nohemi Hunter MD PCP: [place] Status: DEP ER - ER Visit Summary Date of Service: 02/25/18 Chief Complaint: Short of breath, cough History of Present Illness: The patient is a 72 M who presents with a 3-day history of cough with yellow to green colored sputum. He eating fluid collection around his lungs. Reports some mild wheezing. He states he is not able to lie down flat at night. He thinks he is in the computer he does have a documented history of CHF, although the patient denies a known history. He used to be on water pills but states the [place] took him off. He does describe a burning sensation through his chest into his upper abdomen. He states he believes that his reflux disease. He has been taking extra doses of his omeprazole without improvement. Physical Examination: Blood pressure is 157/77, other vitals normal. Patient sitting upright in bed no acute distress. He speaking full sentences. Head and neck examination unremarkable. Heart is regular rate and rhythm. Lungs sounds are clear. Abdomen is soft nontender. Lower external examination reveals 2+ edema that is symmetric in the lower legs. He has an old healing abrasion over the right lower hassan. Test Results: EKG is a flutter at [address] change. Two-view chest x-ray shows interstitial edema with small right pleural effusion. CBC was normal white count hemoglobin of 11.9. Troponin is 0.112. BNP is 357. Emergency Department Course and Treatment: On review of prior records, patient has had a chronically elevated troponin. He was seen in December and had actually had a troponin higher than today's value. Extensive discussion was had with the patient's copy director at that time it was felt to not represent acute cardiac ischemia. Patient was given a GI cocktail today and the burning sensation in his chest is completely resolved. He states this felt more like his reflux pain as opposed to cardiac etiology. Test results were discussed with patient and family at bedside. I believe the patient does need to go back on diuretics. He will be given Lasix and will start taking this medication in the morning. We will also write him for Prevacid to help control his reflux. He will follow-up with his doctors at the [place]. Treatment Plan: [] Disposition: Discharge Impression: CHF This note was generated with [employer] dictation software. It may contain incorrect words, spelling, and punctuation that were not noted in review of the chart prior to signing ED Disposition - Plan for ED Patient: Disposition: Home or Assisted Living Chief Complaint: Shortness of Breath Instructions: ED CHF General Prescriptions: Furosemide [Lasix] 40 mg PO DAILY #10 tablet Lansoprazole [Prevacid] 30 mg PO DAILY #30 capsule Referrals: [facility] [Primary Care Provider] - 1-2 Weeks What to do if you have Problems For any increased pain, shortness of breath, bleeding, nausea or vomiting, chest pain, or any unexpected problems, contact your Primary Care Provider. Call [facility] ([phone]) or report to the closest Emergency Room. Call 911 if necessary. 02/26/18 0147 <Electronically signed by Nohemi Hunter MD> Date Nohemi Hunter MD Cosigner Signature (If Indicated): Date CC: [place] [facility] DISCHARGE INSTRUCTION Observed: 02/25/2018 Status: F Source: [place] 10:16 PM [facility] REPOSITORY [facility] Medical Records Department [address] [place] [address] Discharge Instruction 02/25/18 2215 MR#: [id number] Acct: [id number] Name: BRANDON KULKARNI Anatoly Rep #: [id number] : 1945 72 From: Nohemi Hunter MD PCP: [facility] [place] Status: REG ER ED Disposition - Plan for ED Patient: Disposition: Home or Assisted Living Chief Complaint: Shortness of Breath Instructions: ED CHF General Prescriptions: Furosemide [Lasix] 40 mg PO DAILY #10 tablet Lansoprazole [Prevacid] 30 mg PO DAILY #30 capsule Referrals[place] [facility] [Primary Care Provider] - 1-2 Weeks What to do if you have Problems For any increased pain, shortness of breath, bleeding, nausea or vomiting, chest pain, or any unexpected problems, contact your Primary Care Provider. Call [facility] ([phone]) or report to the closest Emergency Room. Call 911 if necessary. 02/25/186 <Electronically signed by Nohemi Hunter MD> Date Nohemi Hunter MD Cosigner Signature (If Indicated): Date CC: [facility] CBC W/DIFF, AUTOMATED Collected: 02/25/2018 Status: F Source: [place] 8:05 PM [facility] REPOSITORY TYPE CODE TESTS RESULT OUT OF RANGE REFERENCE UNITS LAB L100.1000 4.4-11.0 K/mm3 Normal WBC 9.8 LAB L100.1200 4.6-6.2 M/mm3 Low RBC 4.29 LAB L100.1300 13.0-16.5 g/dl Low HGB 11.9 LAB L100.1400 40-54 % Low HCT 36.1 LAB L100.1500 80-94 fL Normal MCV 84.1 LAB L100.1600 27.0-32.0 pg Normal MCH 27.7 LAB L100.1700 32-36 g/gl Normal MCHC 33.0 LAB L100.1810 11.6-14.6 % High RDW CV 15.3 LAB L100.1820 35.1-43.9 fl High RDW SD 47.1 LAB L100.1900 150-450 K/mm3 Normal PLT 216 LAB L100.2000 6.2-12.0 fl Normal MPV 11.3 LAB L100.2100 47-70 % Normal NEUT% 69.4 LAB L100.2200 19-41 % Low LY% 18.2 LAB L100.2300 0-10 % High MONO% 10.8 LAB L100.2400 0-5 % Normal EO% 0.9 LAB L100.2500 0-1 % Normal BASO% 0.5 LAB L100.2550 0.0-0.9 % Normal IM GRAN % 0.200 Result Comment: IG% - Immature Granulocytes (promyelocytes, myelocytes and metamyelocytes) > 1% indicates that a LEFT SHIFT is Present. LAB L100.2620 2.0-7.7 X10 3/uL Normal Absolute Neut 6.8 LAB L100.2720 0.83-4.51 X10 3/ul Normal Absolute Lymph 1.79 Performed By: #### L100.0100 #### [facility] [address] [place], [place], [address] BASIC METABOLIC Collected: 02/25/2018 Status: F Source: [place] PROFILE (BMP) 8:05 PM [facility] REPOSITORY TYPE CODE TESTS RESULT OUT OF RANGE REFERENCE UNITS LAB L501.0100 74-106 mg/dL High GLU 120 Result Comment: Fasting Glucose result from 100 to 125 mg/dL suggests IMPAIRED HOMEOSTASIS per A.D.A. criteria. Please note revised GLUCOSE reference range effective 2017. LAB L501.1000 7-18 mg/dL Normal BUN 10 LAB L501.1100 0.70-1.30 mg/dL Normal CREAT,SERUM 1.09 Result Comment: The validity of the calculated GFR AND GFRAA in patients over 70 years has not been determined. Clinical correlation is essential. LAB L501.1110 >60 mL/min Normal EST GFR 71 Result Comment: Non- GFR Calc LAB L501.1115 >60 mL/min Normal EST GFR - AA 86 Result Comment: GFR Calc LAB L501.1255 ml/min Normal Estimated CRCL 75.37 LAB L501.1300 10-20 RATIO Low BUN/CRE 9.2 LAB L501.2200 8.5-10 mg/dL Normal .1 CA 8.6 LAB L501.5300 136-14 mmol/L Low 5 NA 135 LAB L501.5600 3.5-5. mmol/L Normal 1 K 4.1 LAB L501.5900 98-107 mmol/L Normal CL 102 LAB L501.6100 21.0-3 mmol/L Normal 2.0 CO2 25.0 LAB L501.6200 5-15 Normal GAP 8 Performed By: #### L500.2500, L501.4010 #### [facility] [address] [place], [address] TROPONIN-I Collected: 02/25/2018 Status: F Source: [place] 8:05 PM [facility] REPOSITORY TYPE CODE TESTS RESULT OUT OF RANGE REFERENCE UNITS LAB L501.4010 <0.045 ng/mL High 0.112 TROPONIN-I Result Comment: TROPONIN-I EXPECTED VALUES <0.045 Negative 0.045 - 0.590 Consistent with Cardiac Damage > OR = 0.600 Critical Value Not every elevated troponin is indicative of NC. These values should be used with clinical judgement in examining the patient's clinical picture for diagnosis. To establish a diagnosis of NC versus myocardial injury, there must be a demonstrated rise and/or fall in the troponin values, in addition to ischemic symptoms, EKG changes, new regional wall motion abnormality, and/or angiographical evidence. PLEASE NOTE: REFERENCE RANGES EDITED 17 Performed By: #### L500.2500, L501.4010 #### [facility] [address] [place], [address] BNP,B-TYPE NATRIURETIC Collected: 02/25/2018 Status: F Source: [place] PEPTIDE 8:05 PM [facility] REPOSITORY TYPE CODE TESTS RESULT OUT OF RANGE REFERENCE UNITS LAB L503.6620 0-100 pg/mL High B-TYPE 357.9 HOA PEP Performed By: #### L503.6620 #### [facility] [address] [place], [address] CHEST PA AND LATERAL Observed: 02/25/2018 Status: F Source: [place] 7:45 PM [facility] REPOSITORY [facility] Imaging Services [address] [place] [address] Chest PA and Lateral MR#: [id number] Acct: [id number] Name: BRANDON KULKARNI Rep #: [id number] : 1945 M 72 From: José Daugherty MD PCP: [place], [place] Status: REG ER Study: Chest PA and Lateral Date of Exam: 02/25/18 Exam# [id number] Ordering Dr: Nohemi Hunter MD STUDY: X-RAY CHEST REASON FOR EXAM: Male, 72 years old. Chest pain TECHNIQUE: PA and lateral views of the chest. COMPARISON: 11/17/2017 FINDINGS: EKG leads overlie the chest Lungs are expanded. Since the previous study, there is been development of interstitial edema particularly in the lower half of both lung cordova. Follow-up recommended to assure resolution. No organized infiltrate. There is a small right pleural effusion. Normal size heart. Normal mediastinum and rosendo. Normal visualized pulmonary arteries. Normal visualized aortic arch and descending thoracic aorta. Normal visualized thoracic spine. Normal visualized ribs, clavicles, and shoulders. There is no demonstrated abnormality of the visualized soft tissue structures of the upper abdomen. RAD/Chest PA and Lateral IMPRESSION: Interstitial edema with small right pleural effusion. Follow-up recommended to assure resolution Electronically Signed: Johnathan Daugherty MD at 21:48 EST , Service support , CC: [facility]; Nohemi Hunter MD Heel Coverer: Signed EMERGENCY DEPARTMENT Observed: 12/02/2017 Status: F Source: [place] SUMMARY 8:43 AM [facility] REPOSITORY [facility] Medical Records Department [address] [place] [address] Emergency Department Summary 12/02/17 0351 MR#: [id number] Acct: [id number] Name: BRANDON KULKARNI Rep #: [id number] : 1945 72 From: Troo Pedroza PCP: Care Physician, No Primary Status: DEP ER - ER Visit Summary Date of Service: 12/02/17 Chief Complaint: Back pain History of Present Illness: The patient is a 72 M intermittent right-sided back pain radiating down the side of the leg to the knee for the past 3-4 months. No acute injuries. Symptoms worse with standing relieved with sitting. No loss of bowel or bladder control. Patient states leg did give out had a fall and 12 seen in the ED with a contusion. Saw chiropractor week ago with adjustment. Symptoms are worsening. He is on Eliquis for history of paroxysmal A. fib. Using Tylenol with no relief. States similar symptoms in the past, however less severe. Physical Examination: General: Alert and oriented 3, no acute distress HEENT: Normocephalic, atraumatic. Moist mucosa membranes Neck: supple, nontender. Cardiovascular: Regular rate and rhythm, no murmurs Respiratory: Normal breath sounds, symmetric, no distress Abdomen: Soft, nontender, nondistended Back: Midline tenderness L2-L3, straight leg test is negative, 1+ patellar reflex bilaterally. Distal pulses intact. Extremities: Nontender, no edema, pulses intact 4 Neuro: no focal neurological deficits. Test Results: Lumbar x-ray: Degenerative changes. Emergency Department Course and Treatment: Patient with no cauda equina symptoms. Due to being on Eliquis, NSAIDs were avoided. Given dose of oxycodone. X-ray notes degenerative changes. History concerns for sciatica symptoms. OARRS report was negative. Short prescription for pain control. Follow-up with his [place] physician. Treatment Plan: [] Disposition: Discharge Impression: Sciatica right side This note was generated with [employer] dictation software. It may contain incorrect words, spelling, and punctuation that were not noted in review of the chart prior to signing ED Disposition - Plan for ED Patient: Disposition: Home or Assisted Living Chief Complaint: Back Diagnosis: Sciatica Instructions: ED Sciatica Prescriptions: Oxycodone HCl/Acetaminophen [Percocet 5/325] 1 tablet PO Q6H PRN PRN 3 Days #12 tablet PRN Reason: Pain Referrals: Care Physician,No Primary [Primary Care Provider] - Additional Instructions: [facility] What to do if you have Problems For any increased pain, shortness of breath, bleeding, nausea or vomiting, chest pain, or any unexpected problems, contact your Primary Care Provider. Call [facility] ([phone]) or report to the closest Emergency Room. Call 911 if necessary. 12/02/17 0843 <Electronically signed by Toro Pedroza> Date Toro Pedroza Cosigner Signature (If Indicated): Date CC: No Primary Care Physician; [facility] LUMBAR SPINE 2 OR 3 Observed: 12/02/2017 Status: F Source: [place] VIEWS 1:48 AM [facility] REPOSITORY [facility] Imaging Services [address] [facility] [place] [address] Lumbar Spine 2 or 3 Views MR#: [id number] Acct: [id number] Name: BRANDON KULKARNI Rep #: [id number] : 1945 M 72 From: Aurea Vasques MD PCP: Care Physician, No Primary Status: REG ER Study: Lumbar Spine 2 or 3 Views Date of Exam: 12/02/17 Exam# [id number] Ordering Dr: Toro Melendez DO STUDY: X-RAY - LUMBAR SPINE REASON FOR EXAM: Male, 72 years old. Lower back pain TECHNIQUE: 3 view(s) of the lumbar spine were obtained. COMPARISON: None FINDINGS: Normal lumbar lordosis. There is a levoscoliosis of the lumbar spine. There is a normal alignment of the vertebrae. There is multilevel endplate spondylosis of the lumbar vertebrae. There is multi-level degenerative disc disease with multi-level disc space narrowing. There is atherosclerotic calcification of the abdominal aorta without a demonstrated aneurysm. RAD/Lumbar Spine 2 or 3 Views IMPRESSION: Degenerative changes of the spine, as detailed above. Electronically Signed: Aurea Vasques MD at 2:38 EDT Tel , Service support , CC: No Primary Care Physician; Toro Melendez Heel Coverer: Signed CARDIOLOGY VISIT Observed: 11/23/2017 Status: F Source: [place] REPORT 2:20 PM [facility] REPOSITORY [facility] [place] [address] OFFICE VISIT Date of Service: 11/23/17 MR#: [id number] Acct: [id number] Name: BRANDON KULKARNI Rep #: [id number] : 1945 Provider: Emanuel Schofield MD Age/Sex: 72/M Location: [facility] Status: Signed HPI HPI Chief Complaint: Follow-up visit. Details: BRANDON KULKARNI, is a 72 M who presents to the office today for a follow-up visit. He is a gentleman with a history of hypertension and paroxysmal atrial fibrillation who had seen during his last hospitalization in August. He also has coronary artery disease status post cardiac catheterization in September 2016 which demonstrated a 60% stenosis in the left anterior descending artery, 50% stenosis in the first obtuse marginal branch as well as the right coronary artery. His ejection fraction was normal medical therapy was recommended. He was put on the beta-ines as well as anticoagulation. It appears that the beta-ines was discontinued by the [facility]. He also unfortunately sustained an injury to his right leg and has a hematoma from this. He has had some palpitations in the past. He had presented to the emergency room with that and electrocardiogram was performed which confirmed premature ventricular complexes as well as atrial fibrillation which was paroxysmal. A 24-hour Holter monitor was then ordered which demonstrated the average heart rate to be 60 bpm in sinus rhythm with a first-degree AV block and short runs of atrial fibrillation. This comprised approximately 7% of the total QRS complex. He does not necessarily feel all his palpitations and at the time this was performed he was not on the beta-ines. His physical exam today demonstrates clear lung cordova regular rate and rhythm and no pedal edema. He does have a huge bruise on his right leg Intake Vital Signs11/23/17 Height 6 ft 3 in 11/23/17 Weight: 250 lb 11/23/17 Body Mass Index (BMI) 31.2 11/23/17 Blood Pressure 154/62 11/23/17 Respiratory Rate 18 11/23/17 Pulse Rate 74 Intake Visit Reasons: ER 8-16 for palps, fatigue, cath'd 08-19-17 Allergies lisinopril Allergy (Verified 11/23/17 13:53) Angioedema Penicillins [PCN] Allergy (Verified 11/23/17 13:53) Hives Medications Apixaban [Eliquis] 5 mg PO BID 08/08/17 [History Confirmed 11/23/17] Aspirin E.C. [Ecotrin] 81 mg PO DAILY@0800 tab 08/09/17 [Rx Confirmed 11/23/17] Metoprolol Tartrate [Lopressor (beta ines)] 25 mg PO BID #60 tab 08/09/17 [Rx Confirmed 11/17/17] NIFEdipine [Procardia Xl] 60 mg PO DAILY tab 08/09/17 [Rx Confirmed 11/23/17] [facility] Medical History Multiple premature ventricular complexes (Chronic) Chronic diastolic (congestive) heart failure (Chronic) Paroxysmal atrial fibrillation (Chronic) Atherosclerotic heart disease of [place] coronary artery without angina pectoris (Chronic) Hypertension (Chronic) Obesity (Chronic) Lightheadedness (Resolved) Near syncope (Resolved) Troponin I above reference range (Resolved) Unstable angina (Resolved) Abnormal EKG (Inactive) Surgical History History of arthroscopic knee surgery (Resolved) History of left heart catheterization (Resolved 09/13/16) Family History Other CVA (cerebral vascular accident) Hypertension Social History Smoking Status: Never smoker ROS Const Const: Negative for fatigue, weakness, difficulty sleeping, frequent falls, excessive sweating or headache(s) Eyes Eyes: Negative for loss of peripheral vision, transient loss of vision, blurry vision, tunnel vision or double vision ENT ENT: Negative for headache(s), dizziness, Nosebleed/epistaxis or balance problems Cardio Chest Pain: No Palpitations: Yes feels like its: skipping, thumping, pounding Edema: None Muscle aches with walking: None Resp Respiratory: Negative for SOB with activity, SOB at rest, SOB orthopnea\SOB lying down, paroxysmal nocturnal dyspnea or Cough GI GI: Negative nausea, heartburn, black,tarry stools or vomiting : Negative for hematuria Musc Musc: Negative for balance problems, muscle aches/ myalgia, muscle weakness or joint pain Skin Skin: Negative non-healing lesions, unusual bruising or rash Neuro Neuro: Negative for weakness, frequent falls, headache(s), blurry vision, double vision, dizziness, lightheadedness, orthostatic symptoms, near syncope, syncope or lack of coordination [place] Hematologic/Lymphatic: Positive for other (RLE ecchymotic with large red/ecchymotic area over distal tibia); negative for easy bruising or easy bleeding Endo Endo: Negative for fatigue, excessive sweating or increased thirst/drinking Psych Psych: Negative for anxiety or depression Allergy Allergy/Immunology: Negative for hives, Negative for rash Cardiology Exam Const Appearance: cooperative, healthy appearing, well developed, well groomed and no acute distress Nutritional Appearance: well nourished and average body habitus Orientation: alert, awake and oriented x3 Head Head: normal to inspection, normocephalic and atraumatic Ears: hearing grossly normal bilaterally and external ears normal Nose: external nose normal, nasal mucous membranes and turbinates normal, nares normal, septum normal, no nasal discharge Face and Sinus: face symmetric Mouth: oral mucosae normal, tongue normal, oropharynx normal and moist mucous membranes Teeth and gingiva: dentition normal Throat: posterior oropharynx normal, tonsils normal and uvula midline Eyes General: appearance normal, both eyes and all related structures Eyelids: eyelids normal Conjunctivae: conjunctivae normal Pupils: PERRL, normal by confrontation and accommodation normal EOM: EOM intact bilaterally Neck Neck: normal visual inspection, trachea midline and no JVD JVD: +5 Carotids: normal carotid upstroke and bounding pulses Chest Chest inspection: normal inspection of the chest, symmetric chest movement and normal respiratory effort Auscultation: Bilateral: Clear to Auscultation Cardio Palpation: normal PMI Rate: regular rate Rhythm: regular rhythm Heart sounds: S1 normal, S2 normal and normal, physiologic split S2; negative rub, gallop or murmur GI GI: normal to inspection, soft, no hepatosplenomegaly and bowel sounds present Neuro General: alert, awake, oriented x3, no focal sensory deficit, gait normal and moves all extremities Skin Skin: no rashes or lesions noted Extremities Pulses: Normal: Right Femoral Pulse, Left Femoral Pulse, Right Dorsalis Pedis Pulse, Left Dorsalis Pedis Pulse, Right Posterior Tibial Pulse, Left Posterior Tibial Pulse, Right Radial Pulse, Left Radial Pulse Lower Extremity Edema: None: Bilateral Musculoskel Musculoskeletal: No joint tenderness Psych Psychological: normal affect Assessment AND Plan 1. Paroxysmal atrial fibrillation I48.0 Plan He does have paroxysmal atrial fibrillation my recommendation is for him to restart on the beta-ines at the same dose as well as stay on his Eliquis. No other changes will be advocated. 2. Essential hypertension I10 Plan His blood pressure appears to be under optimal control. My recommendation would be for him to restart the beta-ines and see whether this would improve his symptoms. He remains on the nifedipine as well. 3. Chronic diastolic (congestive) heart failure I50.32 Plan He appears to be doing well with regard to the above with no heart failure symptoms. His echocardiogram had demonstrated preserved ejection fraction. 4. Atherosclerosis of [place] coronary artery of [place] heart without angina pectoris I25.10 Plan He does have mild atherosclerotic cardiovascular disease. At this time I do not think that any further workup regarding the above is warranted. He did have a catheterization as noted above within the last 2 years. Thank you for allowing me to participate in the care of your patient. Please don't hesitate to call if any issues arise Plan Detail Follow Up 6 Months (logistics support) Coding Level of Care Code Off vis,est,level 4 Diagnoses Paroxysmal atrial fibrillation I48.0 Essential hypertension I10 Hypertension type: essential hypertension Chronic diastolic (congestive) heart failure I50.32 Atherosclerosis of [place] coronary artery of [place] heart without angina pectoris I25.10 [place] vs. transplanted heart: [place] heart Coding Level of Care Code Off vis,est,level 4 Diagnoses Paroxysmal atrial fibrillation I48.0 Essential hypertension I10 Hypertension type: essential hypertension Chronic diastolic (congestive) heart failure I50.32 Atherosclerosis of [place] coronary artery of [place] heart without angina pectoris I25.10 [place] vs. transplanted heart: [place] heart 11/23/17 1420 <Electronically signed by Emanuel Schofield MD> Date Emanuel Wynn Signature: Date (if applicable) CC: [facility] 12 LEAD ELECTROCARDIOGRAM Observed: 11/22/2017 Status: F Source: [place] 1:42 PM [facility] REPOSITORY [facility] Cardiovascular Services [address] [place] [address] 12 Lead EKG 11/17/17 1230 MR#: [id number] Acct: [id number] Name: NATALIE KULKARNIWILFREDO Ledbetter Rep #: [id number] : 1945 72 From: Emanuel Schofield MD Attending Dr: Status: DEP ER Ordering Dr: Rakesh Garnett MD Date: 11/17/17 Location: ED Sex: M C Admitted: Test Reason : IRREG HB Blood Pressure : / mmHG Vent. Rate : 077 BPM Atrial Rate : 077 BPM P-R Int : 276 ms QRS Dur : 110 ms QT Int : 398 ms P-R-T Axes : 042 -48 009 degrees QTc Int : 450 ms Sinus rhythm with 1st degree A-V block Left axis deviation Inferior infarct , age undetermined Abnormal ECG Confirmed by EMANUEL SCHOFIELD MD ([id number]), editor greeting card BRENDA KULKARNI ([id number]) on 11/22/2017 1:41:46 PM Referred By: LISA Confirmed By:EMANUEL SCHOFIELD MD 11/22/17 1341 Date Emanuel Schofield MD CC: MD Rosana Garnett; [facility] Signed VENOUS DUPLEX LOWER Observed: 11/19/2017 Status: F Source: [place] EXTREMITY 4:35 PM [facility] REPOSITORY [facility] Cardiovascular Services [address] [place] [address] Venous Duplex US, Unilateral 11/17/17 1242 MR#: [id number] Acct: [id number] Name: BRANDON KULKARNI Rep #: [id number] : 1945 72 From: Arik Badillo MD Attending Dr: Status: DEP ER Ordering Dr: Rakesh Garnett MD Date: 11/17/17 Location: ED Sex: M C Admitted: Reason For Study: LEG SWELLING RIGHT GSV is normal. CFV is compressible, spontaneous, phasic, competent and demonstrates normal augmentation. FV is compressible, spontaneous, phasic, competent and demonstrates normal augmentation. POP V is compressible, spontaneous, phasic, competent and demonstrates normal augmentation. T/P Trunk is compressible. PTV is compressible. RT PerV is compressible. Procedure Exam performed portable in ED. A preliminary report was called and/or faxed to Dr. Garnett. Interpretation Summary Deep veins of the right lower extremity are patent and compressible segmentally. There is no evidence of right lower extremity deep vein thrombosis. Valvular competence appears intact within the proximal deep venous system on the right . The right greater saphenous vein appears patent and compressible segmentally. Ordering Physician: Rosana Garnett Performed By: Tennille Wilkerson RVT 11/19/17 2395 Date Arik Badillo MD CC: MD Rosana Garnett; [facility] Date Dictated: 11/17/17 1242 Date Transcribed: 11/19/17 1637 Heel Coverer: Signed EMERGENCY DEPARTMENT Observed: 11/17/2017 Status: F Source: [place] SUMMARY 4:32 PM [facility] REPOSITORY [facility] Medical Records Department [address] [place] [address] Emergency Department Summary 11/17/17 1219 MR#: [id number] Acct: [id number] Name: BRANDON KULKARNI Rep #: [id number] : 1945 72 From: Rakesh Garnett MD PCP: [facility], [place] Status: DEP ER - ER Visit Summary Date of Service: 11/17/17 Chief Complaint: [] Palpitations or racing heart sense of fatigue History of Present Illness: The patient is a 72 M [] history of unspecified irregular heartbeat on Eliquis, and hypertension who reports he suffers from unspecified palpitations and bradycardia he has had an extensive evaluation including cardiac cath with the last year that he states was negative at one time he was told he may require pacemaker. Today with he was at home he felt his heart was racing briefly and he felt weak and tired and now he just feels an occasional sense of palpitation. He had no fever no cough no chest pain abdominal pain or paresthesias, he is on no new medications has been no change to his general health status, in the bed he has obvious PVCs and then runs of some irregularity but a basic underlying sinus rhythm Physical Examination: [] vs are within normal range monitor rhythm as above head neck chest unremarkable the heart tones are generally regular he occasionally has PVCs and runs of irregularity that last for less than 30 seconds, his abdomen is soft nontender upper lower extremities are generally unremarkable he has a bruise to his right hassan related to a fall on Tuesday that is improving and not bothering him, he has no history of DVT or PE and again he has been taking all his medications including his Eliquis Test Results: [] Emergency Department Course and Treatment: [] Given all the above screening labs are obtained Reviewing the prior records the patient's had a Holter monitor where documents PVCs and A. fib A. fib that is paroxysmal, also reviewed inpatient notes from Dr. Schofield the patient had a cardiac cath that showed mild CAD and he has some diastolic dysfunction in the past on reevaluation the patient's lab studies are unremarkable potassium 3.4 chest x-ray unremarkable EKG currently shows a sinus rhythm nothing acute, troponin returns at 0.22 he has had troponins that elevated that range in the past he is having no anginal type chest pain, I spoke in detail with Dr. Schofield I spoke with the patient his family Dr. Schofield believe the patient be safely discharged outpatient follow-up as he is on all the prep medications and the A. fib is been paroxysmal the patient states he is feeling better he does not wish to be admitted he wants to go home he is comfortable following up as a precaution we did a duplex scan of the right leg and that was also negative he was given 1 K-Dur 40 mg 1 tablet while here Currently the patient's resting comfortably he is in a sinus rhythm with no complaints Treatment Plan: [] Disposition: [] Home stable Impression: [] Paroxysmal A. fib This note was generated with [employer] dictation software. It may contain incorrect words, spelling, and punctuation that were not noted in review of the chart prior to signing ED Disposition - Plan for ED Patient: Chief Complaint: Dizziness Referrals: [place] [Primary Care Provider] - What to do if you have Problems For any increased pain, shortness of breath, bleeding, nausea or vomiting, chest pain, or any unexpected problems, contact your Primary Care Provider. Call [facility] ([phone]) or report to the closest Emergency Room. Call 911 if necessary. 11/17/17 8042 <Electronically signed by Rakesh Garnett MD> Date Rakesh Garnett MD Cosigner Signature (If Indicated): Date CC: [place] [facility] DISCHARGE INSTRUCTION Observed: 11/17/2017 Status: F Source: [place] 2:05 PM [facility] REPOSITORY [facility] Medical Records Department [address] [place] [address] Discharge Instruction 11/17/17 1404 MR#: [id number] Acct: [id number] Name: BRANDON KULKARNI #: [id number] : 1945 72 From: Rakesh Garnett MD PCP: [facility], [place] Status: REG ER ED Disposition - Plan for ED Patient: Chief Complaint: Dizziness Instructions: ED Afib Referrals: [facility] [Primary Care Provider] - Emanuel Schofield MD [STAFF PHYSICIAN] - What to do if you have Problems For any increased pain, shortness of breath, bleeding, nausea or vomiting, chest pain, or any unexpected problems, contact your Primary Care Provider. Call [facility] ([phone]) or report to the closest Emergency Room. Call 911 if necessary. 11/17/17 1405 <Electronically signed by Rakesh Garnett MD> Date Rakesh Garnett MD Cosigner Signature (If Indicated): Date CC: [facility] CBC W/DIFF, AUTOMATED Collected: 11/17/2017 Status: F Source: [place] 12:25 PM [facility] REPOSITORY TYPE CODE TESTS RESULT OUT OF RANGE REFERENCE UNITS LAB L100.1000 4.4-11.0 K/mm3 Normal WBC 7.9 LAB L100.1200 4.6-6.2 M/mm3 Normal RBC 4.67 LAB L100.1300 13.0-16.5 g/dl Normal HGB 13.5 LAB L100.1400 40-54 % Normal HCT 40.0 LAB L100.1500 80-94 fL Normal MCV 85.7 LAB L100.1600 27.0-32.0 pg Normal MCH 28.9 LAB L100.1700 32-36 g/gl Normal MCHC 33.8 LAB L100.1810 11.6-14.6 % Normal RDW CV 13.7 LAB L100.1820 35.1-43.9 fl Normal RDW SD 42.5 LAB L100.1900 150-450 K/mm3 Normal PLT 175 LAB L100.2000 6.2-12.0 fl Normal MPV 11.2 LAB L100.2100 47-70 % Normal NEUT% 68.1 LAB L100.2200 19-41 % Low LY% 18.9 LAB L100.2300 0-10 % High MONO% 11.6 LAB L100.2400 0-5 % Normal EO% 1.0 LAB L100.2500 0-1 % Normal BASO% 0.3 LAB L100.2550 0.0-0.9 % Normal IM GRAN % 0.100 Result Comment: IG% - Immature Granulocytes (promyelocytes, myelocytes and metamyelocytes) > 1% indicates that a LEFT SHIFT is Present. LAB L100.2620 2.0-7.7 X10 3/uL Normal Absolute Neut 5.4 LAB L100.2720 0.83-4.51 X10 3/ul Normal Absolute Lymph 1.50 Performed By: #### L100.0100 #### [facility] [address] [place], [address] BASIC METABOLIC Collected: 11/17/2017 Status: F Source: [place] PROFILE (BMP) 12:25 PM [facility] REPOSITORY TYPE CODE TESTS RESULT OUT OF RANGE REFERENCE UNITS LAB L501.0100 74-106 mg/dL High GLU 130 Result Comment: Fasting Glucose result greater than or equal to 126 mg/dL suggests DIABETES MELLITUS per A.D.A. criteria. Please note revised GLUCOSE reference range effective 2017. LAB L501.1000 7-18 mg/dL Normal BUN 7 LAB L501.1100 0.70-1.30 mg/dL Normal CREAT,SERUM 1.07 Result Comment: The validity of the calculated GFR AND GFRAA in patients over 70 years has not been determined. Clinical correlation is essential. LAB L501.1110 >60 mL/min Normal EST GFR 73 Result Comment: Non- GFR Calc LAB L501.1115 >60 mL/min Normal EST GFR - AA 88 Result Comment: GFR Calc LAB L501.1255 ml/min Normal Estimated CRCL 76.78 LAB L501.1300 10-20 RATIO Low BUN/CRE 6.5 LAB L501.2200 8.5-10 mg/dL Normal .1 CA 8.8 LAB L501.5300 136-14 mmol/L Normal 5 NA 138 LAB L501.5600 3.5-5. mmol/L Low 1 K 3.4 LAB L501.5900 98-107 mmol/L Normal CL 104 LAB L501.6100 21.0-3 mmol/L Normal 2.0 CO2 26.0 LAB L501.6200 5-15 Normal GAP 8 Performed By: #### L500.2500, L501.4010 #### [facility] [address] [place], [address] TROPONIN-I Collected: 11/17/2017 Status: F Source: [place] 12:25 PM [facility] REPOSITORY TYPE CODE TESTS RESULT OUT OF RANGE REFERENCE UNITS LAB L501.4010 <0.045 ng/mL High 0.206 TROPONIN-I Result Comment: TROPONIN-I EXPECTED VALUES <0.045 Negative 0.045 - 0.590 Consistent with Cardiac Damage > OR = 0.600 Critical Value Not every elevated troponin is indicative of NC. These values should be used with clinical judgement in examining the patient's clinical picture for diagnosis. To establish a diagnosis of NC versus myocardial injury, there must be a demonstrated rise and/or fall in the troponin values, in addition to ischemic symptoms, EKG changes, new regional wall motion abnormality, and/or angiographical evidence. PLEASE NOTE: REFERENCE RANGES EDITED 17 Performed By: #### L500.2500, L501.4010 #### [facility] [address] [place], [address] CHEST 1 VIEW Observed: 11/17/2017 Status: F Source: [place] (PORTABLE) 12:19 PM [facility] REPOSITORY [facility] Imaging Services [address] [place] [address] Chest 1 View (Portable) MR#: [id number] Acct: [id number] Name: BRANDON KULKARNI Anatoly Rep #: [id number] : 1945 M 72 From: Sam Holcomb MD PCP: [facility] [place] Status: PRE ER Study: Chest 1 View (Portable) Date of Exam: 11/17/17 Exam# [id number] Ordering Dr: Rakesh Garnett MD STUDY: X-RAY CHEST REASON FOR EXAM: Male, 72 years old. Chest pain TECHNIQUE: Frontal view of the chest COMPARISON: 08/08/2017 FINDINGS: The lungs are clear. There are no pleural effusions. There is no pneumothorax. The heart is normal in size. The visualized osseous structures are within normal limits. RAD/Chest 1 View (Portable) IMPRESSION: No acute thoracic pathology. Electronically Signed: Sam Holcomb, at 12:43 EDT Tel , Service support , CC: MD Rosana Garnett; [facility] Heel Coverer: Signed EMERGENCY DEPARTMENT Observed: 11/13/2017 Status: F Source: [place] SUMMARY 2:47 PM [facility] REPOSITORY [facility] Medical Records Department [address] [place] [address] Emergency Department Summary 11/13/17 1351 MR#: [id number] Acct: [id number] Name: BRANDON KULKARNI Rep #: [id number] : 1945 71 From: Timur Saleem DO PCP: Care Physician, No Primary Status: REG ER - ER Visit Summary Date of Service: 11/13/17 Chief Complaint: Right leg pain History of Present Illness: The patient is a 71 M who presents with right leg pain that began after a fall today. Patient slipped in the shower and fell onto his right leg. Patient states his right lower leg was twisted underneath him. Patient states his pain is worse with weightbearing. Patient denies any paresthesias or weakness. Patient denies any head injury or loss of consciousness. Patient denies any other injuries. Physical Examination: Vital signs are stable. Patient is afebrile. Patient is in no acute distress. Musculoskeletal exam reveals tenderness, edema, and ecchymosis over the anterior aspect of the proximal tibia over the tibial tuberosity and over the distal lower tibia and fibula. There is no deformity noted. There is no bony crepitance or step-off. Range of motion was limited in all motion secondary to pain. Sensation was intact to light touch in all digits. Capillary refill is less than 2 seconds in all digits. The remaining physical exam is within normal limits. Test Results: X-rays of the right tibia and fibula were obtained. There is no acute fracture noted. Emergency Department Course and Treatment: Patient was instructed to ice and elevate the right leg. Patient was instructed to follow-up with his primary care physician in 5-7 days. Patient understood and was agreeable with the plan. All questions were answered. Disposition: Discharge home Impression: Right leg contusions This note was generated with [employer] dictation software. It may contain incorrect words, spelling, and punctuation that were not noted in review of the chart prior to signing ED Disposition - Plan for ED Patient: Disposition: Home or Assisted Living Chief Complaint: Lower Extremity Injury Diagnosis: Contusion of right lower leg, initial encounter Instructions: ED Contusion Lower Ext Referrals: [facility] [Family Provider] - What to do if you have Problems For any increased pain, shortness of breath, bleeding, nausea or vomiting, chest pain, or any unexpected problems, contact your Primary Care Provider. Call [facility] ([phone]) or report to the closest Emergency Room. Call 911 if necessary. 11/13/17 1447 <Electronically signed by Timur Saleem DO> Date Timur Saleem DO Cosigner Signature (If Indicated): Date CC: No Primary Care Physician; [facility] TIBIA AND FIBULA Observed: 11/13/2017 Status: F Source: [place] 2 VIEWS 1:38 PM [facility] REPOSITORY [facility] Imaging Services [facility] [address] [place] [address] Tibia AND Fibula 2 Views MR#: [id number] Acct: [id number] Name: BRANDON KULKARNI Rep #: [id number] : 1945 M 71 From: Sam Holcomb MD PCP: [place], [place] Status: PRE ER Study: Tibia AND Fibula 2 Views Date of Exam: 11/13/17 Exam# [id number] Ordering Dr: Timur Saleem DO STUDY: X-RAY - RIGHT TIBIA AND FIBULA REASON FOR EXAM: Male, 71 years old. Fall TECHNIQUE: 4 view(s) of the tibia and fibula were obtained. COMPARISON: None. FINDINGS: There is no evidence of fracture or dislocation. There are no significant degenerative changes. There are no radiodense foreign bodies. There is soft tissue swelling noted below the knee and above the ankle. RAD/Tibia AND Fibula 2 Views IMPRESSION: No fracture or dislocation. Soft tissue swelling. Electronically Signed: Sam Holcomb, at 14:07 EDT Tel , Service support , CC: [facility]; Timur Saleem DO Heel Coverer: Signed CARDIOLOGY VISIT Observed: 10/15/2017 Status: F Source: [place] REPORT 6:53 PM [facility] REPOSITORY [facility] [address] [place] [address]. [address] [place] [address] OFFICE VISIT Date of Service: 10/07/17 MR#: [id number] Acct: [id number] Name: BRANDON KULKARNI Rep #: [id number] : 1945 Provider: Emanuel Schofield MD Age/Sex: 71/M Location: [facility] Status: Signed HPI HPI Details: BRANDON KULKARNI, is a 71 M who presents to the office today for Intake Intake Visit Reasons: DC PCU 5-8 (NEW to [facility]) Allergies lisinopril Allergy (Verified 08/08/17 07:06) Angioedema Penicillins [PCN] Allergy (Verified 08/08/17 07:06) Hives Medications Omeprazole [Prilosec] 20 mg PO DAILY 09/10/16 [History Confirmed 08/08/17] Apixaban [Eliquis] 5 mg PO BID 08/08/17 [History Confirmed 08/08/17] Aspirin E.C. [Ecotrin] 81 mg PO DAILY@0800 tab 08/09/17 [Rx] Atorvastatin Calcium [Lipitor] 40 mg PO QHS #30 tab 08/09/17 [Rx] Furosemide [Lasix] 40 mg PO DAILY #30 tab 08/09/17 [Rx] Metoprolol Tartrate [Lopressor (beta ines)] 25 mg PO BID #60 tab 08/09/17 [Rx] NIFEdipine [Procardia Xl] 60 mg PO DAILY tab 08/09/17 [Rx] PFSH Medical History Diastolic heart failure (Chronic) Paroxysmal atrial fibrillation (Acute) Atherosclerotic heart disease of [place] coronary artery without angina pectoris (Chronic) Unstable angina (Acute) Abnormal EKG (Chronic) Troponin I above reference range (Chronic) Near syncope (Resolved) Lightheadedness (Resolved) Hypertension (Chronic) Surgical History History of arthroscopic knee surgery (Resolved) Family History Other CVA (cerebral vascular accident) Hypertension Social History Smoking Status: Never smoker ROS Const Const: Negative for fatigue, weakness, night sweats, excessive sweating, frequent falls, headache(s) or daytime sleepiness Eyes Eyes: Negative for loss of peripheral vision, transient loss of vision, blind spots, double vision or blurry vision ENT ENT: Negative for headache(s), dizziness, balance problems, Nosebleed/epistaxis, tongue swelling or lip swelling Cardio Chest Pain: No Palpitations: No Edema: None Muscle aches with walking: None Resp Respiratory: Negative for SOB at rest, SOB orthopnea\SOB lying down, Cough, paroxysmal nocturnal dyspnea or SOB with activity GI GI: Negative nausea, vomiting, heartburn, black,tarry stools or bright, red blood in stools : Negative for hematuria Musc Musc: Negative for balance problems, muscle aches/ myalgia, muscle weakness or joint pain Skin Skin: Negative non-healing lesions, unusual bruising or rash Neuro Neuro: Negative for weakness, frequent falls, headache(s), double vision, dizziness, lightheadedness, orthostatic symptoms, blurry vision or lack of coordination [place] Hematologic/Lymphatic: Negative for easy bruising or easy bleeding Endo Endo: Negative for fatigue, excessive sweating, cold intolerance, heat intolerance, increased thirst/drinking or hair loss Psych Psych: Negative for anxiety or depression Allergy Allergy/Immunology: Negative for throat swelling, Negative for tongue swelling, Negative for hives, Negative for rash, Negative for lip swelling Coding Level of Care Code No Charge Coding Level of Care Code No Charge 10/15/17 1853 <Electronically signed by Emanuel Schofield MD> Date Emanuel Schofield MD Cosigner Signature: Date (if applicable) CC: [facility] 12 LEAD ELECTROCARDIOGRAM Observed: 08/16/2017 Status: F Source: [place] 2:17 PM [facility] REPOSITORY [facility] Cardiovascular Services [address] [place] [address] 12 Lead EKG 08/09/17 1028 MR#: [id number] Acct: [id number] Name: BRANDON KULKARNI Rep #: [id number] : 1945 71 From: Emanuel Schofield MD Attending Dr: Ken Nina MD Status: DIS KOFFI Ordering Dr: Ross Kamara Date: 08/09/17 Location: [facility] Sex: M C Admitted: 08/08/17 Test Reason : BRADYCARDIA Blood Pressure : / mmHG Vent. Rate : 051 BPM Atrial Rate : 051 BPM P-R Int : 432 ms QRS Dur : 104 ms QT Int : 456 ms P-R-T Axes : 068 -54 005 degrees QTc Int : 420 ms Sinus bradycardia with 1st degree A-V block Left axis deviation Low voltage QRS Inferior infarct , age undetermined Abnormal ECG When compared with ECG of 08-AUG-2017 16:16, MANUAL COMPARISON REQUIRED, DATA IS UNCONFIRMED Confirmed by EMANUEL SCHOFIELD MD ([id number]), editor greeting card BRENDA KULKARNI ([id number]) on 08/16/2017 2:17:38 PM Referred By: NAKIA Confirmed By:EMANUEL SCHOFIELD MD 08/16/17 1417 Date Emanuel Schofield MD CC: KAYLYN Kamara; [facility]; Ken Nina MD Signed 12 LEAD ELECTROCARDIOGRAM Observed: 08/12/2017 Status: F Source: [place] 2:25 PM [facility] REPOSITORY [facility] Cardiovascular Services [address] [place] [address] 12 Lead EKG 08/08/17 1616 MR#: [id number] Acct: [id number] Name: BRANDON KULKARNI Rep #: [id number] : 1945 71 From: Emanuel Schofield MD Attending Dr: Ken Nina MD Status: DIS KOFFI Ordering Dr: Emanuel Schofield MD Date: 08/08/17 Location: [facility] Sex: M C Admitted: 08/08/17 Test Reason : Blood Pressure : / mmHG Vent. Rate : 060 BPM Atrial Rate : 060 BPM P-R Int : 400 ms QRS Dur : 104 ms QT Int : 446 ms P-R-T Axes : 072 -48 016 degrees QTc Int : 446 ms Sinus rhythm with 1st degree A-V block with Fusion complexes Left axis deviation Low voltage QRS Inferior infarct (cited on or before 31-AUG-2014) Abnormal ECG When compared with ECG of 13-SEP-2016 05:18, Sinus rhythm has replaced Atrial fibrillation Confirmed by EMANUEL SCHOFIELD MD ([id number]), editor greeting card BRENDA KULKARNI (58) on 08/12/2017 2:25:04 PM Referred By: CELESTINE Confirmed By:EMANUEL SCHOFIELD MD 08/12/17 1422 Date Emanuel Schofield MD CC: [facility]; Emanuel Schofield MD; Ken Nina MD Signed 12 LEAD ELECTROCARDIOGRAM Observed: 08/10/2017 Status: F Source: [place] 1:00 PM [facility] REPOSITORY [facility] Cardiovascular Services [address] [place] [address] 12 Lead EKG 08/08/17 0713 MR#: [id number] Acct: [id number] Name: BRANDON KULKARNI Rep #: [id number] : 1945 71 From: Kelechi Bloom MD Attending Dr: Ken Nina MD Status: DIS KOFFI Ordering Dr: Antwan Srinivasan MD Date: 08/08/17 Location: [facility] Sex: M C Admitted: 08/08/17 Test Reason : CP, PALPITATIONS Blood Pressure : / mmHG Vent. Rate : 079 BPM Atrial Rate : 288 BPM P-R Int : 000 ms QRS Dur : 106 ms QT Int : 420 ms P-R-T Axes : 000 -47 006 degrees QTc Int : 481 ms Atrial fibrillation /flutter Premature ventricular complexes Poor R wave progression Left axis deviation Inferior infarct , age undetermined Abnormal ECG Confirmed by MERLE ORO, KELECHI ([id number]), editor greeting card BRENDA KULKARNI (58) on 08/10/2017 1:00:29 PM Referred By: JOHN Confirmed By:KELECHI BLOOM MD 08/10/17 1300 Date Kelechi Bloom MD CC: [facility]; Antwan Srinivasan MD; Ken Nina MD Signed DISCHARGE SUMMARY Observed: 08/09/2017 Status: F Source: [place] 6:17 PM [facility] REPOSITORY [facility] Medical Records Department [address] [place] [address] Discharge Summary 08/09/17 1321 MR#: [id number] Acct: [id number] Name: BRANDON KULKARNI Rep #: [id number] : 1945 71 From: Ross PATIÑO PCP: [facility], [place] Status: DIS KOFFI Y Location: [place] [id number] <Ross Kamara - Last Filed: 08/09/17 13:21> Discharge Date and Diagnosis Date of Admission: 08/08/17 Date of Discharge: 08/09/17 - Primary Discharge Diagnosis Active and Suspected Problems Acute diastolic CHF Paroxysmal AF 2nd degree heart block, type 1 HTN CAD - Secondary Discharge Diagnosis Chronic Problems Abnormal EKG (Chronic) Troponin I above reference range (Chronic) Atrial fibrillation (Chronic) Hypertension (Chronic) Hospital Course and Treatment Imaging Results: RAD/Chest 1 View (Portable) IMPRESSION: Normal x-ray examination of the chest. Consults: Cardiology - [facility] Operations: None Procedures: None Summary of Care Provided: Physical exam on day of discharge: General: Resting comfortably NAD Psych: A/Ox3 normal affect HEENT: [place] AT NC Neck: Supple NT CV: RRR no m/t/r/g/h Resp: CTA Abd: [id number] Soft NT no guarding or rigidity Ext: DP2+= no edema Skin: W/D normal turgor Lymph/Heme: No active bleeding or adenopathy Neuro: CN2-12 intact Hospital course: The patient is a 71 year old M with a history of paroxysmal atrial fibrillation, hypertension,, mild coronary artery disease sent to the emergency room with increased shortness of breath and pain and palpitations for about a week. He is on Eliquis for history of atrial fibrillation and also takes Procardia and metoprolol at home. He had an indeterminate troponin and an elevated BNP and was felt to be in heart failure. With indeterminate troponin chest pain cardiology was consulted for further recommendation. Cardiology did not feel he would benefit from further stress testing or invasive workup. He had had an echo the prior year with ejection fraction of 65%. He is placed on IV Lasix. We maintained his home medications. He diuresed significantly and had significant improvement in his symptoms. While he was here he did have an episode of bradycardia and demonstrated second degree heart block type I. We decided to hold his Lipitor Toprol all for 3 days and arrange for him to have a 48 hour Holter monitor placed as an outpatient. We also decreased his dose of metoprolol, he will restart at 25 BID instead of 50 twice daily. He remained otherwise asymptomatic. His he was discharged home on a new Lasix prescription was advised to be have a BMP in 5 days. He will need to follow-up with his PCP and with cardiology. He is discharged home in stable condition. I did not discharge him on an CHUNG inhibitor as he has a documented reaction of angioedema. This patient was seen by Ross Kamara PA-C under the supervision of Doctor Nakia. [] Discharge Diet: Low fat/ Low Cholesterol, 2000 mg Sodium Diet Discharge Activity: Return to Normal Activity Home Medications: Medications to take at Discharge Omeprazole [Prilosec] 20 mg PO DAILY 09/10/16 Apixaban [Eliquis] 5 mg PO BID 08/08/17 Aspirin E.C. [Ecotrin] 81 mg PO DAILY@0800 tablet 08/09/17 Atorvastatin Calcium [Lipitor] 40 mg PO QHS #30 tablet 08/09/17 Furosemide [Lasix] 40 mg PO DAILY #30 tablet 08/09/17 Metoprolol Tartrate [Lopressor (beta ines)] 25 mg PO BID #60 tab 08/09/17 NIFEdipine [Procardia Xl] 60 mg PO DAILY tablet 08/09/17 Following Prescrptions Were Given to Patient: Metoprolol Tartrate [Lopressor (beta ines)] 25 mg PO BID #60 tab [facility] Care Physician: [facility] [Primary Care Provider] - Please follow up with your Primary Care Physician in: 2 weeks Please Follow Up With: Emanuel Schofield MD When: 1 week Disposition: Home Minutes spent on discharge:: 35 Patient Condition:: Stable Medical Necessity - Tobacco Use Smoking Status: Never smoker Meaningful Use Info Meaningful Use Diagnoses (Choose all that apply): CHF - CHF CHUNG/ARB ordered at discharge?: No Reason CHUNG/ARB not ordered?: Angioedema Documented LVEF (%): 65 <Ken Nina - Last Filed: 08/09/17 18:16> Discharge Date and Diagnosis - Secondary Discharge Diagnosis Chronic Problems Abnormal EKG (Chronic) Troponin I above reference range (Chronic) Atrial fibrillation (Chronic) Hypertension (Chronic) Hospital Course and Treatment Summary of Care Provided: This patient was seen in conjunction with Ross PATIÑO. I have independently interviewed and examined the patient and reviewed pertinent history, examination findings, laboratory and plan of management. I have reviewed the note and agree with the documented findings with the few additional points. In brief, patient is admitted for chest pain. Serial troponins were done and were mildly elevated but flat 0.07. Seen by copy director and he did not feel he needs further stress test or invasive workup. He had last cath in September 2016 showed mid LAD 60%, mid OM to 50% and mid RCA 60% with LV gram EF 70%. Patient had also echo at that time showed EF 65% with no regional wall motion abnormality. LA moderately enlarged mildly dilated RV, RVSP 35 mmHg. Furthermore, patient had Wenckebach second-degree heart block. This was discussed with Dr. schofield. Patient discharged on Holter monitor. Patient was advised to hold metoprolol for 3 days and then resume at lower dose with holding parameter if heart rate less than 60/min. Aloe up with the copy director I have discussed my assessment with Ross PATIÑO and orders have been reviewed. [] Meaningful Use Info Meaningful Use Diagnoses (Choose all that apply): CHF - CHF CHUNG/ARB ordered at discharge?: No Reason CHUNG/ARB not ordered?: Angioedema Documented LVEF (%): 65 Code Visit OBSV E AND M: [id number] Observation care discharge 08/09/17 1328 <Electronically signed by Ross PATIÑO> Date Ross PATIÑO 08/09/17 1817<Electronically signed by Ken Nina MD> Cosigner Signature (if applicable): Date Ken Nina MD CC: KAYLYN Kamara; [facility]; Ken Nina MD Signed DISCHARGE INSTRUCTION Observed: 08/09/2017 Status: F Source: [place] 1:21 PM [facility] REPOSITORY [facility] Medical Records Department [address] [place] [address] Instructions for Home/Discharge Instructions 08/09/17 1315 MR#: [id number] Acct: [id number] Name: BRANDON KULKARNI Rep #: [id number] : 1945 71 From: Ross PATIÑO PCP: [place], [place] Status: ADM KOFFI ADDENDUM by KAYLYN Kamara on 08/09/17 at 1320 Follow up in 2 days for 48 hour holter monitor placement. Date Ross Kamara cc: [facility]; Emanuel Schofield MD * Signed - Discharge Diagnoses Current Active Problems: Current Active and Chronic Problems Unstable angina (Acute) You will use the following diet at home:: Cardiac - <2 g sodium/day Your food should be the consistency of: Regular Your liquids should be the consistency of: Regular/Thin Discharge Activity: Return to Normal Activity Allergies/Adverse Reactions: Allergies lisinopril Allergy (Verified 08/08/17 07:06) Angioedema Penicillins [PCN] Allergy (Verified 08/08/17 07:06) Hives Medications to take at Discharge Omeprazole [Prilosec] 20 mg PO DAILY 09/10/16 Apixaban [Eliquis] 5 mg PO BID 08/08/17 Aspirin E.C. [Ecotrin] 81 mg PO DAILY@0800 tablet 08/09/17 Atorvastatin Calcium [Lipitor] 40 mg PO QHS #30 tablet 08/09/17 Furosemide [Lasix] 40 mg PO DAILY #30 tablet 08/09/17 Metoprolol Tartrate [Lopressor (beta ines)] 25 mg PO BID #60 tab 08/09/17 NIFEdipine [Procardia Xl] 60 mg PO DAILY tablet 08/09/17 The following prescriptions were given: Metoprolol Tartrate [Lopressor (beta ines)] 25 mg PO BID #60 tab Please follow up with your Primary Care Physician in: 2 weeks Please Follow Up With: Emanuel Schofield MD When: 1 week Proposed Discharge Date: 08/09/17 08/09/17 1316 <Electronically signed by Ross PATIÑO> Date Ross PATIÑO CC: [facility]; Emanuel Schofield MD LIPID PROFILE Collected: 08/09/2017 Status: F Source: [place] 5:25 AM [facility] REPOSITORY TYPE CODE TESTS RESULT OUT OF RANGE REFERENCE UNITS LAB L501.4900 200 mg/dL Normal CHOL 175 Result Comment: <200 mg/dL Desirable 200-240 mg/dL Borderline >240 mg/dL High Risk LAB L501.5000 mg/dL Normal TRIG 112 Result Comment: The drugs N-Acetylcysteine and Metamizole may falsely depress this assay. Serum Triglycerides Reference Interval Normal <150 mg/dL Borderline high 150 - 199 mg/dL High 200 - 499 mg/dL Very High > or = 500 mg/dL LAB L501.6400 mg/dL Normal HDL 45 Result Comment: The drugs N-Acetylcysteine and Metamizole may falsely depress this assay. Reference Range HDL <40 mg/dL Low HDL Cholesterol HDL >or= 60 mg/dL High HDL Cholesterol LAB L501.6500 0-130 mg/dL Normal LDL 108 LAB L501.6600 5-40 mg/dL Normal VLDL 22 Performed By: #### L500.4100 #### [facility] [address] [place], [address] TROPONIN-I Collected: 08/08/2017 Status: F Source: [place] 10:11 PM [facility] REPOS[facility]ORY Order Comment: 'TROP' Serial specimen #1, #2, #3, or #4: 4 TYPE CODE TESTS RESULT OUT OF RANGE REFERENCE UNITS LAB L501.4010 <0.06 ng/mL Normal 0.06 TROPONIN-I Result Comment: TROPONIN-I EXPECTED VALUES <0.05 NEGATIVE 0.06 - 0.59 AT RISK OF NC > OR = 0.60 SUGGEST NC Performed By: #### L501.4010 #### [facility] [address] [place], [address] CONSULTATION Observed: 08/08/2017 Status: F Source: [place] 7:37 PM [facility] REPOS[facility] Medical Records Department [address] [place] [address] Consultation 08/08/17 1610 MR#: [id number] Acct: [id number] Name: BRANDON KULKARNI Rep #: [id number] : 1945 71 From: Emanuel Schofield MD PCP: [facility] [place] Status: ADM KOFFI Y Location: [place] [address] Reason for Consult Date of Consultation: 08/08/17 Reason for Consultation: Shortness of breath and chest tightness History of Present Illness: The patient is a 71 year old M with a history of hypertension and probable paroxysmal atrial fibrillation. This was diagnosed a year ago when he presented for colonoscopy and was noted to be in atrial fibrillation. At that time he also had mildly abnormal cardiac enzymes. He underwent a cardiac catheterization which demonstrated mild coronary artery disease with a 60% left anterior descending artery stenosis, a 50% first obtuse marginal branch stenosis in the right coronary artery with 50-60% stenosis his ejection fraction was normal medical therapy was recommended as well as anticoagulation. He also had an echocardiogram which demonstrated preserved ejection fraction and moderate left atrial enlargement. He apparently has been doing well but says that he started having some tightness as well as shortness of breath and he thinks he had mild pedal edema he was waking up in the night and slightly short of breath. He says that he has been compliant with his medications. He is currently not having any further chest tightness. [] Past Medical History Allergies/Adverse Reactions: Allergies lisinopril Allergy (Verified 08/08/17 07:06) Angioedema Penicillins [PCN] Allergy (Verified 08/08/17 07:06) Hives Home Medications: Ambulatory Orders Medication Instructions Recorded Metoprolol Tartrate [Lopressor 50 mg PO BID #1 tablet 09/02/14 Past Medical History (Chronic Problems): Chronic Problems Abnormal EKG (Chronic) Troponin I above reference range (Chronic) Atrial fibrillation (Chronic) Hypertension (Chronic) Surgical History: total knee arthroplasty Psychiatric History: No pertinent psych hx - *Family History Maternal History Items: Hypertension Paternal History Items: Stroke Sibling History Items: Hypertension Smoking Status: Never smoker Alcohol: Occasional Drugs: None Review of Systems - Review of Systems General: Denies: Fever, Night Sweats, Fatigue Cardiovascular: Reports: Chest Discomfort at Rest, Shortness of Breath. Denies: Chest Discomfort, Orthopnea, PND, Peripheral Edema, Palpitations, Lightheadedness, Dizziness, Near Syncope, Syncope Respiratory: Denies: Cough, Sputum Production, Hemoptysis Gastrointestinal: Denies: Hematemesis, Hematochezia, Melena Genitourinary: Denies: Dysuria, Hematuria Skin: Denies: Rash Subjectve: Pleasant gentleman in no apparent distress Objective: Vital Signs Temp Pulse Resp BP Pulse Ox 98.0 F 71 18 137/90 H 97 08/08/17 14:51 08/08/17 15:10 08/08/17 14:51 08/08/17 14:51 08/08/17 14:51 Oxygen Delivery Method Room Air Weight: 265 lb 3.457 oz Body Mass Index (BMI) 33.1 Intake and Output for Last 24 Hours Intake Total 375 / 375 Balance 375 / 375 General: Awake, Alert, Oriented x 3 HEENT: PERRL, EOMI, Sclera Non Icteric Neck: Supple, Good ROM, No Lymph Node Enlargement Lungs: Clear to auscultation Cardiovascular: Regular Rhythm, Normal S1, Normal S2, No Murmurs, No Rubs, No Gallops Vascular: No Carotid Bruits, Normal Femoral Pulses, Normal Radial Pulses, Normal Dorsalis Pedal Pulse, Normal Posterior Tibial Pulses Abdomen: Bowel Sounds Present, Soft, Non Tender, No HSM, No Organomegaly Extremities: No Cyanosis, No Clubbing, No edema Neurological: No Focal Motor or Sensory Deficit 08/08/17 11:50: Troponin I 0.07 H Rhythm: EKG: Initial EKG demonstrated atrial fibrillation with a controlled ventricular response rate and premature ventricular complexes with a rate of 79 bpm. Follow-up electrocardiogram demonstrates sinus bradycardia. Assessment/Plan 1. Diastolic heart failure. Patient appears to have presented with shortness of breath elevated natruretic peptide was in atrial fibrillation and had evidence of diastolic heart failure. My recommendation at this time would be to start him on Lasix 40 mg a day. He had an echocardiogram within the last year he has not had any abnormal cardiac enzymes and I do not think there is a reason to repeat the above will perform any stress testing. His medical therapy should be optimized. He can be followed up as an outpatient regarding the above. 2. Paroxysmal atrial fibrillation Patient appears to be in paroxysmal atrial fibrillation has currently converted to sinus rhythm he is on the beta-ines as well as on the Eliquis. My recommendation would be for him to continue the same without making any changes. 3. Mild coronary artery disease. Patient has mild coronary artery disease documented by cardiac catheterization less than a year ago. His cardiac enzyme pattern does not demonstrate evidence of ischemia and I suspect that the minimal troponin bump is secondary to demand ischemia and/or stretch from the congestive heart failure. I do not think that a stress test at this time would be necessarily beneficial. His chest pain appears to be rather atypical. 4. Hypertension His blood pressure is under good control. He will remain on the beta-ines and the calcium channel ines. I would recommend that we reduce the dose of the nifedipine to once a day and put him on an CHUNG inhibitor with a diuretic. 5. Risk factor modification Patient would need his risk factor modified with high intensity statin due to his mild to moderate coronary artery disease status. Thank you for allowing me to participate in the care of your patient. Please don't hesitate to call if any issues arise 08/08/171936 <Electronically signed by Emanuel Schofield MD> Date Emanuel Schofield MD Cosigner Signature (if applicable): Date CC: [facility]; Emanuel Schofield MD Signed HISTORY AND PHYSICAL Observed: 08/08/2017 Status: F Source: [place] EXAM 11:52 AM [facility] REPOS[facility]ORY [facility] Medical Records Department [address] [place] [address] [place] [address] History and Physical 08/08/17 1113 MR#: [id number] Acct: [id number] Name: BRANDON KULKARNI Rep #: [id number] : 1945 71 From: Ken Nina MD PCP: [facility], [place] Status: ADM KOFFI Y Location: [place] [address] Problem List (1) Unstable angina Status: Acute (2) Abnormal EKG Status: Chronic (3) Troponin I above reference range Status: Chronic (4) Atrial fibrillation Status: Chronic (5) Near syncope Status: Resolved (6) Lightheadedness Status: Resolved (7) Hypertension Status: Chronic History of Present Illness Date of Admission: 08/08/17 Chief Complaint: Chest pain and palpitation for about 1 week The patient is a 71 year old M with history of moderate coronary artery disease as per cardiac cath in September 2016, chronic A. fib on Eliquis came to ER with intermittent chest pain for about 1 week associated with mild shortness of breath. The characteristics of chest pain is more localized associated with mild shortness of breath and palpitation and gets even at rest. Chest pain does not have direct correlation with exertion but he gets more short of breath and chest tightness with activity. He had last cath in September 2016 showed mid LAD 60%, mid OM to 50% and mid RCA 60% with LV gram EF 70%. Patient had also echo at that time showed EF 65% with no regional wall motion abnormality. LA moderately enlarged mildly dilated RV, RVSP 35 mmHg. EKG shows Letitia carroll at 79 bpm with LAD with PVCs. Currently, he is chest pain-free Past Medical History Past Medical History (Chronic Problems): Chronic Problems Abnormal EKG (Chronic) Troponin I above reference range (Chronic) Atrial fibrillation (Chronic) Hypertension (Chronic) Allergies lisinopril Allergy (Verified 08/08/17 07:06) Angioedema Penicillins [PCN] Allergy (Verified 08/08/17 07:06) Hives Home Medications: Ambulatory Orders Medication Instructions Recorded Metoprolol Tartrate [Lopressor 50 mg PO BID #1 tablet 09/02/14 Surgical History: total knee arthroplasty Psychiatric History: No pertinent psych hx Smoking Status: Never smoker - *Family History Maternal History Items: Hypertension Paternal History Items: Stroke Sibling History Items: Hypertension Review of Systems Constitutional: Denies: Chills, Fever, Weight Change HEENT: Denies: Head Aches, Sinus Congestion, Sinus Drainage Cardiovascular: Reports: Chest Pain. Denies: Palpitations Respiratory: Reports: Shortness of breath upon exertion. Denies: Cough, Shortness of breath at rest, Sputum production Gastrointestinal: Denies: Abdominal Pain, Nausea, Vomiting Genitourinary: Denies: Dysuria Musculoskeletal: Denies: Joint Pain, Joint Tenderness Skin: Denies: Rash, Wounds Neurological: Denies: Numbness, Tingling, Focal weakness Psychiatric: Denies: Anxiety, Depression, Homicidal Ideations, Suicidal Ideations Hematologic/ Lymphatic: Denies: Easy Bruising, Easy Bleeding VTE Information - Inpt Only VTE Present on Admission: No VTE Mechan Device Prophylaxis: SCD's VTE Pharm Prophylaxis ordered?: Yes Patient Problems: Active and Suspected Problems Unstable angina (Acute) - Physical Exam General: Alert, Oriented x3, Cooperative HEENT: Atraumatic, PERRLA, EOMI, Normocephalic Neck: Supple, No JVD, Negative Carotid Bruits Lungs: Clear to auscultation, Normal air movement Cardiovascular: Normal S1, Normal S2, No murmurs, Irregular Rate Abdomen: Bowel Sounds Present, Soft, Non Tender, Non-Distended Extremities: Capillary Refill Less than 3 Seconds, Edema Skin: No rashes, No breakdown Musculoskeletal: No Tenderness to Palpation of Joints or Extremities Neurological: Cranial nerves II-XII grossly intact Psych/Mental Status: Normal Affect, Appropriate Vital Signs Temp Pulse Resp BP Pulse Ox 98.6 F 60 18 142/74 H 96 08/08/17 09:24 08/08/17 11:07 08/08/17 09:24 08/08/17 09:24 08/08/17 09:24 Oxygen Delivery Method Room Air Weight: 265 lb 3.457 oz Body Mass Index (BMI) 33.1 Assessment/Plan Active and Suspected Problems Unstable angina (Acute) The patient is a 71 year old M with history of moderate coronary artery disease as per cardiac cath in September 2016, chronic A. fib on Eliquis came to ER with intermittent chest pain for about 1 week associated with mild shortness of breath. The characteristics of chest pain is more localized associated with mild shortness of breath and palpitation and gets even at rest. Chest pain does not have direct correlation with exertion but he gets more short of breath and chest tightness with activity. He had last cath in September 2016 showed mid LAD 60%, mid OM to 50% and mid RCA 60% with LV gram EF 70%. Patient had also echo at that time showed EF 65% with no regional wall motion abnormality. LA moderately enlarged mildly dilated RV, RVSP 35 mmHg. EKG shows A. fib at 79 bpm with LAD with PVCs. Currently, he is chest pain-free 1. Atypical chest pain most probably unstable angina with moderate coronary artery disease: The patient did not had copy director follow-up after discharge in September 2016 although he was asked to follows [facility]. Patient is being admitted in PCU. Serial cardiac enzymes. Continue home medication. Hold Eliquis as he might need repeat cardiac cath. Consult copy director. Patient on nitro ointment as needed for chest pain. Fasting lipid profile tomorrow a.m. 2. Chronic A. fib on Eliquis: Rate is controlled. hold Eliquis in anticipation possible cardiac cath 3. Other comorbidities include hypertension: Home medication reconciliation done. Blood pressure slightly elevated 158/74 in ER. Currently controlled. DVT prophylaxis: On bilateral SCDs. Clinical Impression(s) from Imaging Studies Chest X-Ray 08/08/17 07:14 IMPRESSION: Normal x-ray examination of the chest. Laboratory Results 08/08/17 07:40: WBC 6.8, RBC 4.64, Hgb 14.0, Hct 40.9, MCV 88.1, MCH 30.2, MCHC 34.2, RDW 14.3, RDW Differential 45.9 H, Plt Count 179, MPV 11.0, Immature Gran % (Auto) 0.300, Neut % (Auto) 54.7, Lymph % (Auto) 29.2, Gregg % (Auto) 13.3 H, Eos % (Auto) 2.1, Baso % (Auto) 0.4, Absolute Neuts (auto) 3.7, Absolute Lymphs (auto) 1.97, Total Counted Not Reportable 08/08/17 07:40: Sodium 137, Potassium 3.9, Chloride 103, Carbon Dioxide 26.0, Anion Gap 8, BUN 11, Creatinine 1.05, Estim Creat Clear Calc 77.20, Est GFR (MDRD) Af Amer 90, Est GFR (MDRD) Non-Af 74, BUN/Creatinine Ratio 10.5, Glucose 113 H, Calcium 8.7, Troponin I 0.07 H 08/08/17 07:40: B-Natriuretic Peptide 403.7 H 08/08/17 07:40: TSH 1.77 Code Visit OBSV E AND M: [id number] Initial observation care L3 08/08/17 1152 <Electronically signed by Ken Nina MD> Date Ken Nina MD Cosigner Signature: Date (if applicable) CC: [facility]; Ken Nina MD Signed TROPONIN-I Collected: 08/08/2017 Status: F Source: [place] 11:50 AM [facility] Order Comment: 'TROP' Serial specimen #1, #2, #3, or #4: 2 TYPE CODE TESTS RESULT OUT OF RANGE REFERENCE UNITS LAB L501.4010 <0.06 ng/mL High 0.07 TROPONIN-I Result Comment: TROPONIN-I EXPECTED VALUES <0.05 NEGATIVE 0.06 - 0.59 AT RISK OF NC > OR = 0.60 SUGGEST NC Performed By: #### L501.4010 #### [facility] [address] [facility], [address] EMERGENCY DEPARTMENT Observed: 08/08/2017 Status: F Source: [place] SUMMARY 8:45 AM [facility] REPOSITORY [facility] Medical Records Department [address] [place] [address] Emergency Department Summary 08/08/17 0732 MR#: [id number] Acct: [id number] Name: BRANDON KULKARNI Rep #: [id number] : 1945 71 From: Antwan Srinivasan MD PCP: [place], [place] Status: REG ER - ER Visit Summary Date of Service: 08/08/17 Chief Complaint: Palpitations, reflux History of Present Illness: The patient is a 71 M who states he has had this pain for months. He states he came in today because he started feeling a little bit short of breath however when I asked him later on in the interview he says is not short of breath. He has a history of atrial fibrillation which was diagnosed last year. He is currently on apixaban. He does take omeprazole for acid reflux. He had a cardiac catheterization done in September 2016 which showed 60% coronary lesions in the left anterior descending in the right coronary artery. He has a 50% lesion in the circumflex. His EF was 70% at that time. Physical Examination: Vital signs reviewed. HEENT exam unremarkable. Heart is irregularly irregular without murmurs. His rate is controlled. Lungs are clear to auscultation. Abdomen is soft and nontender. Extremities reveal no edema. Peripheral pulses are equal. Skin exam normal. Neurologic exam normal. Test Results: EKG was A. fib with rate 79. PVCs noted. Chest x-ray unremarkable. Labs unremarkable except for troponin 0 0.07. Emergency Department Course and Treatment: Patient received aspirin. Due to his history and elevated troponin I feel he should be admitted. Spoke with the hospitalist for admission Treatment Plan: [] Disposition: Admit Impression: Chest Pain, indeterminate troponin This note was generated with [employer] dictation software. It may contain incorrect words, spelling, and punctuation that were not noted in review of the chart prior to signing ED Disposition - Plan for ED Patient: Chief Complaint: Palpitations [place]errals: [facility] [Primary Care Provider] - What to do if you have Problems For any increased pain, shortness of breath, bleeding, nausea or vomiting, chest pain, or any unexpected problems, contact your Primary Care Provider. Call [facility] ([phone]) or report to the closest Emergency Room. Call 911 if necessary. 08/08/17 0845 <Electronically signed by Antwan Srinivasan MD> Date Antwan Srinivasan MD Cosigner Signature (If Indicated): Date CC: [facility] CBC W/DIFF, AUTOMATED Collected: 08/08/2017 Status: F Source: [place] 7:40 AM [facility] TYPE CODE TESTS RESULT OUT OF RANGE REFERENCE UNITS LAB L100.1000 4.4-11.0 K/mm3 Normal WBC 6.8 LAB L100.1200 4.6-6.2 M/mm3 Normal RBC 4.64 LAB L100.1300 13.0-16.5 g/dl Normal HGB 14.0 LAB L100.1400 40-54 % Normal HCT 40.9 LAB L100.1500 80-94 fL Normal MCV 88.1 LAB L100.1600 27.0-32.0 pg Normal MCH 30.2 LAB L100.1700 32-36 g/gl Normal MCHC 34.2 LAB L100.1810 11.6-14.6 % Normal RDW CV 14.3 LAB L100.1820 35.1-43.9 fl High RDW SD 45.9 LAB L100.1900 150-450 K/mm3 Normal PLT 179 LAB L100.2000 6.2-12.0 fl Normal MPV 11.0 LAB L100.2100 47-70 % Normal NEUT% 54.7 LAB L100.2200 19-41 % Normal LY% 29.2 LAB L100.2300 0-10 % High MONO% 13.3 LAB L100.2400 0-5 % Normal EO% 2.1 LAB L100.2500 0-1 % Normal BASO% 0.4 LAB L100.2550 0.0-0.9 % Normal IM GRAN % 0.300 Result Comment: IG% - Immature Granulocytes (promyelocytes, myelocytes and metamyelocytes) > 1% indicates that a LEFT SHIFT is Present. LAB L100.2620 2.0-7.7 X10 3/uL Normal Absolute Neut 3.7 LAB L100.2720 0.83-4.51 X10 3/ul Normal Absolute Lymph 1.97 Performed By: #### L100.0100 #### [facility] [address] [place], [place], [id number] BASIC METABOLIC Collected: 08/08/2017 Status: F Source: [place] PROFILE (BMP) 7:40 AM [facility] Order Comment: 'TROP' Serial specimen #1, #2, #3, or #4: 1 TYPE CODE TESTS RESULT OUT OF RANGE REFERENCE UNITS LAB L501.0100 74-106 mg/dL High GLU 113 Result Comment: Fasting Glucose result from 100 to 125 mg/dL suggests IMPAIRED HOMEOSTASIS per A.D.A. criteria. Please note revised GLUCOSE reference range effective 2017. LAB L501.1000 7-18 mg/dL Normal BUN 11 LAB L501.1100 0.70-1.30 mg/dL Normal CREAT,SERUM 1.05 Result Comment: The validity of the calculated GFR AND GFRAA in patients over 70 years has not been determined. Clinical correlation is essential. LAB L501.1110 >60 mL/min Normal EST GFR 74 Result Comment: Non- GFR Calc LAB L501.1115 >60 mL/min Normal EST GFR - AA 90 Result Comment: GFR Calc LAB L501.1255 ml/min Normal Estimated CRCL 77.20 LAB L501.1300 10-20 RATIO Normal BUN/CRE 10.5 LAB L501.2200 8.5-10 mg/dL Normal .1 CA 8.7 LAB L501.5300 136-14 mmol/L Normal 5 NA 137 LAB L501.5600 3.5-5. mmol/L Normal 1 K 3.9 LAB L501.5900 98-107 mmol/L Normal CL 103 LAB L501.6100 21.0-3 mmol/L Normal 2.0 CO2 26.0 LAB L501.6200 5-15 Normal GAP 8 Performed By: #### L500.2500, L501.4010 #### [facility] [address] [place], [address] TROPONIN-I Collected: 08/08/2017 Status: F Source: [place] 7:40 AM [facility] Order Comment: 'TROP' Serial specimen #1, #2, #3, or #4: 1 TYPE CODE TESTS RESULT OUT OF RANGE REFERENCE UNITS LAB L501.4010 <0.06 ng/mL High 0.07 TROPONIN-I Result Comment: TROPONIN-I EXPECTED VALUES <0.05 NEGATIVE 0.06 - 0.59 AT RISK OF NC > OR = 0.60 SUGGEST NC Performed By: #### L500.2500, L501.4010 #### [facility] [address] [facility] [place], [place], [id number] BNP,B-TYPE NATRIURETIC Collected: 08/08/2017 Status: F Source: [place] PEPTIDE 7:40 AM [facility] TYPE CODE TESTS RESULT OUT OF RANGE REFERENCE UNITS LAB L503.6620 0-100 pg/mL High B-TYPE 403.7 HOA PEP Performed By: #### L503.6620 #### [facility] [address] [facility] [place], [place], [id number] THYROID STIM HORMONE Collected: 08/08/2017 Status: F Source: [place] (TSH) 7:40 AM [facility] TYPE CODE TESTS RESULT OUT OF RANGE REFERENCE UNITS LAB L501.9520 0.358-3.74 uIU/mL Normal TSH 1.77 Performed By: #### L501.9520 #### [facility] [address] [place], [address] CHEST 1 VIEW Observed: 08/08/2017 Status: F Source: [place] (PORTABLE) 7:15 AM [facility] REPOS[facility]ORY [facility] Imaging Services [address] [place] [address] Chest 1 View (Portable) MR#: [id number] Acct: [id number] Name: BRANDON KULKARNI Rep #: [id number] : 1945 M 71 From: Rico Aviles DO PCP: [place], [place] Status: REG ER Study: Chest 1 View (Portable) Date of Exam: 08/08/17 Exam# [id number] Ordering Dr: Antwan Srinivasan MD STUDY: X-RAY CHEST REASON FOR EXAM: Male, 71 years old. Chest pain TECHNIQUE: Single AP portable view of the chest. COMPARISON: 09/10/2016 FINDINGS: The lungs are clear and expanded. There is no demonstrated pleural abnormality. There is moderate cardiac enlargement. Normal mediastinum and rosendo. Normal visualized pulmonary arteries. Normal visualized aortic arch and descending thoracic aorta. Normal visualized thoracic spine. Normal visualized ribs, clavicles, and shoulders. There is no demonstrated abnormality of the visualized soft tissue structures of the upper abdomen. RAD/Chest 1 View (Portable) IMPRESSION: Normal x-ray examination of the chest. Electronically Signed: Rico Aviles DO at 8:23 EDT Tel , Service support , CC: [facility]; Antwan Srinivasan MD Heel Coverer: Signed ALLERGIES ALLERGIES DATE TYPE / CODE NAME / CODE REACTION SEVERITY SOURCE 04/06/2018 Drug Penicillins/ Hives Unknown [facility] Allergy/4160 [id number](R [facility] [address](SNOMED XNORM) Repository CT) 04/06/2018 Drug lisinopril/F Angioedema Unknown [place] [facility] Allergy/4160 [id number](RX Hospital [address](SNOMED NORM) Repository CT) ENCOUNTERS ENCOUNTERS ADMIT/DISCHARGE ACCOUNT ADMITTING ENCOUNTER LOCATION SOURCE NUMBER CLASS 04/06/2018/ [id number] Ambulatory BMSBuilding:B [place] 9 2 [facility] Repository 03/20/2018/ [id number] Emergency [place] 8 3 [facility] ing:ED Repository 02/25/2018/ [id number] Emergency [place] 8 1 [facility] ing:ED Repository 12/02/2017/ [id number] Emergency [place] 8 5 [facility] ing:ED Repository 11/23/2017/ [id number] Ambulatory BMSBuilding:B [place] 8 1 [facility] Repository 11/19/2017 [id number] Ambulatory BMSBuilding:B [place] 0 [facility] Repository 11/17/2017/ [id number] Emergency [place] 8 5 [facility] ing:ED Repository 11/13/2017/ [id number] Emergency [place] 8 6 [facility] ing:ED Repository 10/04/2017 [id number] Ambulatory BMSBuilding:B [place] 1 [facility] Repository 08/15/2017 [id number] Ambulatory BMSBuilding:W [place] 4 [facility] Repository 08/09/2017 [id number] Ambulatory [place] 2 [facility] ing:PSN Repository 08/08/2017/ [id number] Nakia, Ambulatory Luc[place] 8 7 [facility] ing:PCURoom: Repository [id number]: 1 08/08/2017 [id number] Nakia, Ambulatory BMSBuilding:B [place] 7 [facility] MS.[facility] Repository 08/08/2017 [id number] Nakia, Ambulatory BMSBuilding:B [place] 0 Ken MS.CF.WHG [facility] Repository 08/08/2017 [id number] Nakia, Ambulatory BMSBuilding:B [place] 2 Ken MS.WIP [facility] Repository 08/08/2017/ [id number] Ambulatory BMSBuilding:W [place] 8 8 [facility] Repository 08/08/2017/ [id number] Ambulatory BMSBuilding:W [place] 8 7 [facility] Repository PAYERS PAYERS ENCOUNTER GUARANTOR PAYER SUBSCRIBER SOURCE 04/06/2018 BRANDON Ledbetter Primary BRANDON Bhaktaoster [id number] TR Insurance:MEDICARE A [facility] [address] Number: [id number] [facility] [address]Qpr: [id number] Repository Date:2017-11-23 () 04/06/2018 Secondary BRANDON Barker [facility] Number: [id number] Hospital [id number] Repository Date:2331-02-66WOI SERVICE [id number] [place], [place] [address]RD: [phone] X2003 04/06/2018 Tertiary NOT GIVENUNK [place] Insurance:SELF PAY [facility] Number: Effective Repository Date:2018-03-24 03/20/2018 BRANDON Ledbetter Primary Insurance:[place] BRANDON Ledbetter [place] [id number] [facility] DanniFRANKLIN, Number: [id number] Juan Regional Medical Center [address]Gok: [id number] Repository Date:9771-65-92RWI () SERVICE [id number] [place], [place] [address]RV: [phone] X2003 03/20/2018 Secondary NOT GIVENUNK [place] Insurance:SELF PAY [facility] Number: Effective Repository Date:2018-03-20 02/25/2018 BRANDON Ledbetter Primary Insurance:[place] BRANDON Ledbetter [place] [id number] [facility] DanniFRANKLIN, Number: [id number] Juan Regional Medical Center [address]Bnn: [id number] Repository Date:2071-37-06ZSN () SERVICE [id number] [place], [place] [address]ZG: [phone] X2003 02/25/2018 Secondary NOT GIVENUNK [place] Insurance:SELF PAY [facility] Number: Effective Repository Date:2018-02-25 12/02/2017 BRANDON L Primary BRANDON [id number] Insurance:MEDICARE MILLERDOB: [facility] PART A olicy [id number], Number: [place]ository [place] [address]Rbv: [id number] Date:2017-12-02 () 12/02/2017 Secondary BRANDON L [place] Insurance[facility] Number: [id number] Hospital [id number] Repository Date:9710-59-80AKA SERVICE [id number] [place], [place] [address]LF: [phone] X2003 12/02/2017 Tertiary NOT GIVENUNK [place] Insurance:SELF PAY [facility] Number: Effective Repository Date:2017-12-02 11/23/2017 BRANDON L Primary Insurance:[place] BRANDON Barker [id number] [facility] Number: [id number], [id number] [place]ository [place] [address]Gob: Date:6814-22-99KFF SERVICE [id number] () [place], [place] [address]XB: [phone] X2003 11/23/2017 Secondary NOT GIVENUNK [place] Insurance:SELF PAY [facility] Number: Effective Repository Date:2017-11-18 11/19/2017 BRANDON L Primary Insurance:[place] BRANDON Ledbetter [place] [id number] [facility] Number: [id number] [id number] [place]ository [place] [address]Wvb: Date:5398-29-68SJJ SERVICE [id number] () [place], [place] [address]SJ: [phone] X2003 11/19/2017 Secondary NOT GIVENUNK [place] Insurance:SELF PAY [facility] Number: Effective Repository Date:2017-11-19 11/17/2017 BRANDON Ledbetter Primary BRANDON [id number] Insurance:MEDICARE MILLERDOB: [facility] PART A [facility] [id number], Number: Repository [place] [address]Use: [id number] Date:2017-11-17 () 11/17/2017 Secondary BRANDON Anatoly [place] Insurance:[facility]: [facility] Number: [id number] Hospital [id number] Repository Date:6966-63-79YWH SERVICE [id number] [place], [place] [address]JS: [phone] X2003 11/17/2017 Tertiary NOT GIVENUNK [place] Insurance:SELF PAY [facility] Number: Effective Repository Date:2017-11-17 11/13/2017 BRANDON Ledbetter Primary BRANDON [id number] Insurance:MEDICARE MILLERDOB: [facility] A [facility] [id number], Number: Repository [place] [address]Iox: [id number] Date:2017-11-13 () 11/13/2017 Secondary BRANDON L [place] Insurance:[facility]: [facility] Number: [id number] Hospital [id number] Repository Date:4863-83-22UZL SERVICE [id number] [place], [place] [address]MJ: [phone] X2003 11/13/2017 Tertiary NOT GIVENUNK [place] Insurance:SELF PAY [facility] Number: Effective Repository Date:2017-11-13 10/04/2017 Brandon Ledbetter Primary Insurance:[place] Brandon Barker [id number] [facility]: [address], Number: [id number] Juan Regional Medical Center [address]Dfu: [id number] Repository Date:9114-49-35CKZ () SERVICE [id number] [place], [place] [address]OT: [phone] X2003 10/04/2017 Secondary NOT GIVENUNK [place] Insurance:SELF PAY [facility] Number: Effective Repository Date:2017-10-04 08/15/2017 Brandon Ledbetter Primary Insurance:[place] Brandon Kulkarni6262 [facility]: [address], Number: [id number] Juan Regional Medical Center [address]Nbs: [id number] Repository Date:9851-81-86WRN () SERVICE [id number] [place], [place] [address]RY: [phone] X2003 08/15/2017 Secondary NOT GIVENUNK [place] Insurance:SELF PAY [facility] Number: Effective Repository Date:2017-08-15 08/09/2017 BRANDON Ledbetter Primary Insurance:[place] BRANDON [id number] [facility]: [facility] Number: [id number], [id number] [place]ository [place] [address]Gfm: Date:5105-52-68WGJ SERVICE [id number] () [place], [place] [address]XQ: [phone] X2003 08/09/2017 Secondary NOT GIVENUNK [place] Insurance:SELF PAY [facility] Number: Effective Repository Date:2017-08-09 08/08/2017 Brandon Ledbetter Primary Brandon [id number] TR Insurance:[facility]ARE [facility]: [address], PART A [facility] [id number] Juan Regional Medical Center [address]Ujy: Number: Repository [id number] () Date:2017-08-08 08/08/2017 Secondary Brandon Ledbetter [place] [facility]: [facility] Number: [id number] Hospital [id number] Repository Date:1333-53-08ZTM SERVICE [id number] [place], [place] [address]IC: [phone] X2003 08/08/2017 Tertiary NOT GIVENUNK [place] Insurance:SELF PAY [facility] Number: Effective Repository Date:2017-08-08 08/08/2017 Brandon Ledbetter Primary Insurance:[place] Brandon Kulkarni6262 [facility] [id number] Number: [id number] [place] [id number] Repository [address]Uvl: ([phone]) Date:7788-82-26FYL [phone] () SERVICE [id number] [place], [place] [address]LY: [phone] X2003 08/08/2017 Secondary NOT GIVENUNK [place] Insurance:SELF PAY [facility] Number: Effective Repository Date:2017-08-08 08/08/2017 Brandon Ledbetter Primary [place] Brandon Kulkarni6262 [facility]: [facility] [id number] Number: [id number] [place] [id number] Repository [address]Esx: ([phone]) Date:3703-80-41OHY [phone] () SERVICE [id number] [place], [place] [address]VC: [phone] X2003 08/08/2017 Secondary NOT GIVENUNK [place] Insurance:SELF PAY [facility] Number: Effective Repository Date:2017-08-08 08/08/2017 Brandon Ledbetter [place] Insurance:[place] Brandon Klukarni6262 [facility]: [address], Number: [id number] [facility] Center [address]Yox: [id number] Repository Date:7467-92-45GHS () SERVICE [id number] [place], [place] [address]YD: [phone] X2003 08/08/2017 Secondary NOT GIVENUNK [place] Insurance:SELF PAY [facility] Number: Effective Repository Date:2017-08-08 08/08/2017 Brandon Ledbetter Primary Insurance:[place] Brandon Braker [id number] [facility]: [address], Number: [id number] Juan Regional Medical Center [address]Rwe: [id number] Repository Date:3860-75-29RWM () SERVICE [id number] [place], [place] [address]AF: [phone] X2003 08/08/2017 Secondary NOT GIVENUNK [place] Insurance:SELF PAY [facility] Number: Effective Repository Date:2017-08-08 08/08/2017 Brandon Ledbetter Primary Insurance:[place] Brandon Kulkarni6262 [facility]: [address], Number: [id number] Juan Regional Medical Center [address]Hua: [id number] Repository Date:6176-14-77WPG () SERVICE [id number] [place], [place] [address]OX: [phone] X2003 08/08/2017 Secondary NOT GIVENUNK [place] Insurance:SELF PAY [facility] Number: Effective Repository Date:2017-08-08
== END 2018-03-20 15:55 | disposition home or self-care (01) ==
PROVIDERS: Emergency Provider Emergency Medicine
DX: I48.2 Chronic atrial fibrillation (principal); I11.0 Hypertensive heart disease with heart failure; I50.9 Heart failure, unspecified; Z79.01 Long term (current) use of anticoagulants; Z79.82 Long term (current) use of aspirin; Z79.899 Other long term (current) drug therapy
CPT/HCPCS: 71046; 80048; 83880; 84484; 85025; 93005; 99285; A4216

== ENCOUNTER 2021-04-13 09:35 | Emergency (ER) | payer OTHER, SELFPAY ==
[2021-04-13 09:37] VITALS: BP 169/79; PULSE 91; RESP 18; TEMP 36.3; O2SAT 100; BMI 28.7
[2021-04-13 10:43] VITALS: BP 156/74; PULSE 66; RESP 16; O2SAT 100
--- NOTE | 2021-04-13 11:17 | VDUE_ITS ---
Reason For Study: SWELLING Right Proximal Left Proximal Right subclavian vein is spontaneous, widely Left jugular vein is spontaneous, widely patent, phasic, with no intraluminal patent, phasic, with no intraluminal echogenicity noted. echogenicity noted. Left subclavian vein is spontaneous, widely patent, phasic, with no intraluminal echogenicity noted. Left Arm Left axillary vein is spontaneous, patent, phasic, competent, compressible and demonstrates augmentation. Left brachial vein is compressible. Left cephalic vein is compressible. Left basilic vein is compressible. Left Lower Arm Left radial vein is compressible. Left ulnar vein is compressible. VL/Venous Duplex US, Unilateral Interpretation Summary No evidence for acute deep venous thrombosis[left] upper extremity with patent and compressible cephalic and basilic veins. Normal flow patterns right subclavian vein Ordering Physician: Rai Cochran Referring Physician: JESSE, [place] Performed By: Jennifer Rapp, MAO, RVT ?
--- NOTE | 2021-04-13 11:27 | EDS_ITS ---
HPI History of Present Illness Chief Complaint: Edema Informant: patient Narrative Narrative: Patient presents for evaluation of possible DVT in left upper extremity. Patient states he has been having swollen joints throughout his body for months now. It varies upper and lower extremities and side to side. Currently it is his left hand that is bothering him. His ankles are not a big issue at this time. He has not been having fevers or chills. He does not feel systemically ill. He was treated with a course of prednisone once that did help. He has had some swelling in the left hand for about 6 weeks. It waxes and wanes. He is also had olecranon bursa swelling for years. This is unchanged. He is already on Eliquis for history of what sounds like atrial fibrillation. He is taking this medicine. He has no cough chest pain shortness of breath or hemoptysis. He evidently was sent in by provider for a stat ultrasound of his left upper extremity for these above reasons. [facility] Medical History (Updated 04/13/21 @ 12:[address] Rai Cochran MD) Abnormal EKG Atherosclerotic heart disease of [place] coronary artery without angina pectoris Chronic diastolic (congestive) heart failure Hypertension Lightheadedness Multiple premature ventricular complexes Near syncope Obesity Paroxysmal atrial fibrillation Troponin I above reference range Unstable angina Home Medications aspirin 81 mg PO DAILY@0800 tab 08/09/17 [Rx Last Taken Unknown] apixaban 5 mg tablet 5 mg PO BID #60 tab 04/06/18 [Rx Last Taken Unknown] metoprolol succinate 25 mg tablet,extended release 24 hr 25 mg PO DAILY 05/30/18 [History Last Taken Unknown] pantoprazole 40 mg tablet,delayed release 40 mg PO DAILY 06/14/18 [History Last Taken Unknown] potassium chloride 10 mEq tablet,extended release 10 meq PO DAILY 06/14/18 [History Last Taken Unknown] allopurinol 100 mg PO DAILY 04/13/21 [History Last Taken Unknown] amlodipine 10 mg PO DAILY 04/13/21 [History Last Taken Unknown] cholecalciferol (vitamin D3) 50 mcg PO DAILY 04/13/21 [History Last Taken Unknown] clopidogrel 75 mg PO DAILY 04/13/21 [History Last Taken Unknown] ezetimibe 10 mg PO DAILY 04/13/21 [History Last Taken Unknown] furosemide 40 mg PO DAILY 04/13/21 [History Last Taken Unknown] hydralazine 50 mg PO TID 04/13/21 [History Last Taken Unknown] rosuvastatin 20 mg PO DAILY 04/13/21 [History Last Taken Unknown] Allergy/AdvReac Type Severity Reaction Status Date / Time lisinopril Allergy Angioedema Verified 06/14/18 09:52 Penicillins [PCN] Allergy Hives Verified 06/14/18 09:52 Family History Other CVA (cerebral vascular accident) Hypertension Surgical History History of arthroscopic knee surgery History of left heart catheterization (09/13/16) Social History Smoking Status: Former smoker ROS ROS ED Constitutional Constitutional ED: Denies chills or fever(s) Eyes Eyes: Denies blurry vision ENT ENT ED: Denies rhinorrhea or sore throat Cardiovascular Cardiovascular: Denies chest pain, orthopnea, palpitations or paroxysmal nocturnal dyspnea Respiratory/Chest Respiratory/Chest: Denies cough, dyspnea, dyspnea on exertion, orthopnea, paroxysmal nocturnal dyspnea or sputum Gastrointestinal Gastrointestinal: Denies nausea or vomiting Musculoskeletal Musculoskeletal: Reports arthralgias; Denies myalgias Integumentary Denies abscess, Abrasions or rash Neurologic Neurologic: Denies headache(s) or weakness Endocrine Endocrinology: Denies polydipsia or polyuria Allergic/Immunologic Allergic/Immunologic ED: Denies mouth swelling, tongue swelling or urticaria EXAM Physical Exam Const Vital Signs: 04/13/21 09:37 04/13/21 10:39 04/13/21 10:43 Temperature 97.4 F L Temperature Source Temporal Pulse Rate 91 66 Respiratory Rate 18 16 Respiratory Pattern Normal Blood Pressure 169/79 H 156/74 H Blood Pressure Mean 109 101 Pulse Ox 100 100 Oxygen Delivery Method Room Air Room Air 04/13/21 12:00 Temperature Temperature Source Pulse Rate 78 Respiratory Rate 16 Respiratory Pattern Blood Pressure 142/100 H Blood Pressure Mean 114 Pulse Ox 100 Oxygen Delivery Method Room Air Positive well nourished and well developed General Appearance ED: well developed and NAD; Negative for cyanotic, diaphoretic or pallor HEENT Reports moist mucous membranes Eyes General Eye ED: Negative for pale conjunctiva or scleral icterus Neck no JVD Chest Wall inspection of chest normal Resp normal respiratory effort and clear to auscultation bilaterally Resp Narrative: Lungs are completely clear both anteriorly and posteriorly all the way to the bases. No sign of rales or congestive heart failure on exam. Auscultation: Negative for rales Cardio regular rate and regular rhythm Rate: other Other Details: No S3 is heard GI normal to inspection, nondistended, normoactive bowel sounds and non-tender Palpation: soft Extremity Extremity Narrative: Ankles do not look notably swollen now. Legs are not swollen or edematous. No distended veins. Patient does have some swelling of his right distal hand and fingers. This is diffuse and mild. It is not red or warm. He still can move them well. Pulses are normal. Capillary refill is normal. Sensation is normal. The swelling does not extend proximal to the wrist. There are no distended veins. No cord is felt. Neuro oriented x3 Sensorium / Orientation: alert Psych mental status grossly normal Skin no rashes or lesions noted, no wounds and skin turgor normal General Skin Exam: Negative for jaundice or pallor MDM MDM MDM Narrative Medical decision making narrative: Ultrasound was done. This shows no indication of DVT. 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 I think this needs to be worked up as an outpatient. By history, his symptoms got better with prednisone also. He has no fevers or chills. There is no erythema or warmth. No sign of infection at this time. I think he is safe for follow-up with his primary physician. Discharge Plan Triage Chief Complaint: Edema ED Provider: Rai Cochran Dx/Rx/DC Orders Clinical Impression: Polyarthralgia Instructions: ED Arthralgia Prescriptions: No Action apixaban 5 mg tablet 5 mg PO BID Qty: 60 RF: 11 pantoprazole 40 mg tablet,delayed release (DR/EC) 40 mg PO DAILY RF: 0 potassium chloride 10 mEq tablet extended release 10 meq PO DAILY RF: 0 aspirin 81 MG tablet 81 mg PO DAILY@0800 RF: 0 furosemide 40 mg Tablet 40 mg PO DAILY RF: 0 clopidogrel 75 mg Tablet 75 mg PO DAILY RF: 0 allopurinol 100 mg Tablet 100 mg PO DAILY RF: 0 amlodipine 10 mg Tablet 10 mg PO DAILY RF: 0 hydralazine 50 mg Tablet 50 mg PO TID RF: 0 ezetimibe 10 mg Tablet 10 mg PO DAILY RF: 0 rosuvastatin 20 mg Tablet 20 mg PO DAILY RF: 0 cholecalciferol (vitamin D3) 50 mcg (2,000 unit) Tablet 50 mcg PO DAILY RF: 0 metoprolol succinate 25 mg tablet extended release 24 hr 25 mg PO DAILY RF: 0 [facility] Provider[facility] [facility] [Primary Care Provider] - As soon as possible Disposition Disposition: Home, Self Care
[2021-04-13 12:00] VITALS: BP 142/100; PULSE 78; RESP 16; O2SAT 100
[2021-04-13 12:42] VITALS: BP 138/63; PULSE 16; RESP 14; TEMP 36.3; O2SAT 98
== END 2021-04-13 12:48 | disposition home or self-care (01) ==
PROVIDERS: Emergency Provider Emergency Medicine; Visit Provider Emergency Medicine
DX: M79.642 Pain in left hand (principal); I11.0 Hypertensive heart disease with heart failure; I50.32 Chronic diastolic (congestive) heart failure; I48.0 Paroxysmal atrial fibrillation; M25.50 Pain in unspecified joint; Z87.891 Personal history of nicotine dependence; I25.10 Atherosclerotic heart disease of native coronary artery without angina pectoris; Z79.899 Other long term (current) drug therapy; E66.9 Obesity, unspecified; Z79.82 Long term (current) use of aspirin; Z79.01 Long term (current) use of anticoagulants; M79.89 Other specified soft tissue disorders; Z68.28 Body mass index [BMI] 28.0-28.9, adult
CPT/HCPCS: 93971; 99282

== ENCOUNTER 2021-06-10 14:37 | Outpatient (CLI) | payer OTHER, SELFPAY ==
--- NOTE | 2021-06-10 14:41 | RAD_ITS ---
STUDY: X-RAY - PELVIS AND RIGHT HIP REASON FOR EXAM: Male, 75 years old. Pain. TECHNIQUE: 4 views of the pelvis and hip. COMPARISON: None. FINDINGS: There is a non-specific bowel gas pattern. Normal visualized soft tissue structures. Osteopenia. Normal bilateral iliac wings, sacroiliac joints and visualized sacrum. Normal bilateral superior and inferior pubic rami. Normal pubic symphysis. Normal bilateral ischial tuberosities. Incidentally noted is moderate lower lumbosacral spondylosis. Mild arthrosis of both hips. RAD/HIP, UNI W/ Pelvis 2-3 Views IMPRESSION: Lumbosacral spondylosis. Osteopenia with mild arthrosis of both hips. No acute abnormality, evidence of erosive changes or fusion. Electronically Signed: Héctor Mendoza MD at 9:50 EST ,
[2021-06-10 18:01] LABS: Erythrocyte Sedimentation Rate 43 mm/hr (0-20)
[2021-06-10 18:03] LABS: Absolute Lymphocyte Count 1.53 X10^3/uL (0.83-4.51); Absolute Neutrophil Count 4.4 X10^3/uL (2.0-7.7); Basophil# 0.05 X10^3/uL; Basophil% 0.7 % (0-1); Eosinophils% 1.4 % (0-5); Hematocrit 39.5 % (40-54); Hemoglobin 12.8 g/dL (13.0-16.5); Lymphocyte # 1.53 X10^3/ul (0.83-4.51); Lymphocyte % 21.8 % (19-41); Mean Corp Hgb Conc 32.4 g/dL (32-36); Mean Corpuscular Volume 86.4 fL (80-94); Mean Platelet Vol. 12.6 fl (6.2-12.0); Monocyte# 0.88 X10^3/uL; Monocyte% 12.6 % (0-10); NRBC Flagged by Analyzer 0 % (0-5); Neutrophil # 4.42 X10^3/uL (2.7-7.7); Neutrophil % 63.1 % (47-70); Platelet Count 201 K/mm3 (150-450); RBC Distribution Width CV 15.7 % (11.6-14.6); RBC Distribution Width SD 49.5 fl (35.1-43.9); Red Blood Count 4.57 M/mm3 (4.6-6.2)
[2021-06-10 18:16] LABS: AST(SGOT) 18 U/L (15-37); Alanine Aminotransfer ALT/SGPT 24 U/L (16-61); Albumin, Serum 3.8 g/dL (3.2-5.0); Alkaline Phosphatase 104 U/L (45-117); Anion Gap 10 (5-15); BUN 11 mg/dL (7-18); BUN/Creat Ratio 10.1 RATIO (10-20); Calcium,Total 8.7 mg/dL (8.5-10.1); Chloride 101 mmol/L (98-107); Creatinine, Serum 1.09 mg/dL (0.70-1.30); EST Glomerular Filtration Rate 70 mL/min (>60); Est Glom Filt Rate - Afr Amer 85 mL/min (>60); Globulin 3.9 g/dL (2.2-4.2); Glucose 110 mg/dL (74-106); Protein, Total 7.7 g/dL (6.4-8.2); Rheumatoid Factor < 10.0 IU/mL (<15); Sodium Level 137 mmol/L (136-145); Uric Acid 5.3 mg/dL (3.5-7.2)
[2021-06-10 19:39] LABS: Hepatitis B Surface Antibody Non-Reactive; Hepatitis B Surface Antigen Non-Reactive (Nonreactive); Hepatitis C Antibody Non-Reactive (Nonreactive)
[2021-06-12 22:06] LABS: ANTINUCLEAR ANTIBODIES DIRECT Negative (Negative)
[2021-06-13 00:06] LABS: QNTFERON TB Mitogen Value > 10.00 IU/mL (.); QNTFERON TB Nil Value 0.08 IU/mL (.); QNTFERON TB1+ Ag Value 0.06 IU/mL (.); QNTFERON TB2+ Ag Value 0.07 IU/mL (.)
[2021-06-13 09:18] LABS: CCP IgG Antibodies 231 units (0-19); QNTIFERON TB Positive Criteria Negative (Negative)
== END 2021-06-10 23:59 | disposition home or self-care (01) ==
PROVIDERS: Referring Provider Internal Medicine Rheumatology; Visit Provider Internal Medicine Rheumatology
DX: M06.4 Inflammatory polyarthropathy (principal); M19.042 Primary osteoarthritis, left hand; M19.041 Primary osteoarthritis, right hand; M17.0 Bilateral primary osteoarthritis of knee; M18.0 Bilateral primary osteoarthritis of first carpometacarpal joints; M16.0 Bilateral primary osteoarthritis of hip; M47.897 Other spondylosis, lumbosacral region; I10 Essential (primary) hypertension; I25.10 Atherosclerotic heart disease of native coronary artery without angina pectoris; Z86.79 Personal history of other diseases of the circulatory system
CPT/HCPCS: 36415; 73502; 80053; 84550; 85025; 85652; 86038; 86140; 86200; 86431; 86480; 86706; 86803; 87340

== ENCOUNTER → 2021-09-01 | Outpatient (CLI) | payer OTHER, SELFPAY ==
[2021-09-01 14:52] LABS: Absolute Lymphocyte Count 2.18 X10^3/uL (0.83-4.51); Basophil# 0.03 X10^3/uL; Basophil% 0.4 % (0-1); Eosinophil# 0.14 X10^3/uL; Eosinophils% 1.9 % (0-5); Hematocrit 38.2 % (40-54); Hemoglobin 12.3 g/dL (13.0-16.5); Lymphocyte # 2.18 X10^3/ul (0.83-4.51); Lymphocyte % 29.5 % (19-41); Mean Corp Hgb Conc 32.2 g/dL (32-36); Mean Corpuscular Hgb 27.8 pg (27.0-32.0); Mean Corpuscular Volume 86.4 fL (80-94); Mean Platelet Vol. 12.5 fl (6.2-12.0); Monocyte# 1.03 X10^3/uL; Monocyte% 13.9 % (0-10); NRBC Flagged by Analyzer 0 % (0-5); Neutrophil # 3.99 X10^3/uL (2.7-7.7); Neutrophil % 53.9 % (47-70); Platelet Count 201 K/mm3 (150-450); RBC Distribution Width CV 16.6 % (11.6-14.6); RBC Distribution Width SD 52.3 fl (35.1-43.9); Red Blood Count 4.42 M/mm3 (4.6-6.2); White Blood Count 7.4 K/mm3 (4.4-11.0)
[2021-09-01 15:07] LABS: ALB/GLOB Ratio 1.1 RATIO (0.9-2.4); AST(SGOT) 22 U/L (15-37); Alanine Aminotransfer ALT/SGPT 29 U/L (16-61); Albumin, Serum 3.6 g/dL (3.2-5.0); Alkaline Phosphatase 77 U/L (45-117); Anion Gap 8 (5-15); BUN 14 mg/dL (7-18); BUN/Creat Ratio 12.5 RATIO (10-20); Calcium,Total 8.9 mg/dL (8.5-10.1); Chloride 103 mmol/L (98-107); Creatinine, Serum 1.12 mg/dL (0.70-1.30); EST Glomerular Filtration Rate 68 mL/min (>60); Est Glom Filt Rate - Afr Amer 83 mL/min (>60); Globulin 3.4 g/dL (2.2-4.2); Glucose 86 mg/dL (74-106); Potassium 3.2 mmol/L (3.5-5.1); Sodium Level 139 mmol/L (136-145)
== END | disposition home or self-care (01) ==
LOC: LAB.FUTURE 11:45 → MTLAB 11:46
PROVIDERS: Referring Provider Internal Medicine Rheumatology; Visit Provider Internal Medicine Rheumatology
DX: M06.09 Rheumatoid arthritis without rheumatoid factor, multiple sites (principal); I50.9 Heart failure, unspecified; I11.0 Hypertensive heart disease with heart failure; M19.041 Primary osteoarthritis, right hand; M17.0 Bilateral primary osteoarthritis of knee; M18.0 Bilateral primary osteoarthritis of first carpometacarpal joints; M47.897 Other spondylosis, lumbosacral region; I25.10 Atherosclerotic heart disease of native coronary artery without angina pectoris; Z86.79 Personal history of other diseases of the circulatory system; H35.30 Unspecified macular degeneration; N40.1 Benign prostatic hyperplasia with lower urinary tract symptoms; E78.5 Hyperlipidemia, unspecified; Z95.0 Presence of cardiac pacemaker; Z95.5 Presence of coronary angioplasty implant and graft; Z96.652 Presence of left artificial knee joint; Z79.899 Other long term (current) drug therapy
CPT/HCPCS: 36415; 80053; 85025

== ENCOUNTER → 2021-11-10 | Outpatient (CLI) | payer OTHER, SELFPAY ==
[2021-11-10 15:19] LABS: Absolute Lymphocyte Count 1.35 X10^3/uL (0.83-4.51); Absolute Neutrophil Count 4.9 X10^3/uL (2.0-7.7); Basophil# 0.06 X10^3/uL; Basophil% 0.8 % (0-1); Eosinophil# 0.14 X10^3/uL; Eosinophils% 1.8 % (0-5); Hematocrit 37.1 % (40-54); Hemoglobin 12.3 g/dL (13.0-16.5); Lymphocyte # 1.35 X10^3/ul (0.83-4.51); Lymphocyte % 17.7 % (19-41); Mean Corp Hgb Conc 33.2 g/dL (32-36); Mean Corpuscular Hgb 28.6 pg (27.0-32.0); Mean Corpuscular Volume 86.3 fL (80-94); Mean Platelet Vol. 11.6 fl (6.2-12.0); Monocyte% 14.4 % (0-10); NRBC Flagged by Analyzer 0 % (0-5); Neutrophil # 4.94 X10^3/uL (2.7-7.7); Neutrophil % 64.8 % (47-70); Platelet Count 268 K/mm3 (150-450); RBC Distribution Width SD 53.1 fl (35.1-43.9); White Blood Count 7.6 K/mm3 (4.4-11.0)
[2021-11-10 15:32] LABS: ALB/GLOB Ratio 0.8 RATIO (0.9-2.4); AST(SGOT) 16 U/L (15-37); Alanine Aminotransfer ALT/SGPT 15 U/L (16-61); Albumin, Serum 3.4 g/dL (3.2-5.0); Alkaline Phosphatase 91 U/L (45-117); Anion Gap 7 (5-15); BUN 12 mg/dL (7-18); BUN/Creat Ratio 11.8 RATIO (10-20); Calcium,Total 8.9 mg/dL (8.5-10.1); Chloride 100 mmol/L (98-107); Creatinine, Serum 1.02 mg/dL (0.70-1.30); EST Glomerular Filtration Rate 76 mL/min (>60); Est Glom Filt Rate - Afr Amer 92 mL/min (>60); Globulin 4.1 g/dL (2.2-4.2); Glucose 103 mg/dL (74-106); Potassium 3.3 mmol/L (3.5-5.1); Protein, Total 7.5 g/dL (6.4-8.2); Sodium Level 137 mmol/L (136-145)
== END | disposition home or self-care (01) ==
PROVIDERS: Referring Provider Internal Medicine Rheumatology; Visit Provider Internal Medicine Rheumatology
DX: K52.9 Noninfective gastroenteritis and colitis, unspecified (principal)
CPT/HCPCS: 36415; 80053; 85025

== ENCOUNTER 2022-02-04 10:19 | Inpatient (IN) | payer OTHER, SELFPAY ==
[2022-02-04] VITALS (12 sets, daily range): BP systolic 122–176; BP diastolic 65–93; PULSE 58–74; RESP 14–19; TEMP 36.3–37; O2SAT 99–100; BMI 32.3; BMI 29.9
--- NOTE | 2022-02-04 10:50 | EKG12_ITS ---
Test Reason : CP Blood Pressure : / mmHG Vent. Rate : 070 BPM Atrial Rate : 357 BPM P-R Int : 000 ms QRS Dur : 114 ms QT Int : 384 ms P-R-T Axes : 000 -59 050 degrees QTc Int : 414 ms Atrial fibrillation Left axis deviation Inferior infarct , age undetermined Abnormal ECG Confirmed by JONATHON ORO, PIEDAD ([id number]), script editor SANDY RAY ([id number]) on 02/08/2022 1:06:31 PM Referred By: ADIA/MICHAEL Confirmed By:PIEDAD HOLT MD
--- NOTE | 2022-02-04 10:53 | EX.ED.DYSGE1 ---
HPI History of Present Illness Chief Complaint: Chest Pain Informant: patient and family Narrative Narrative: Patient is checked in with complaint of chest pain. However he tells me he is not having pain. He states last 3 or 4 days his atrial fibrillation has been bothering him more. He states sometimes his rate will go up really fast. When it his rate goes fast he sometimes gets just mildly dyspneic. He states he had a little like a tickle or a funny feeling at the base of his sternum once about 3 days ago when it was really fast. But he is not having chest pain with this. He has no nausea vomiting. He has never been diaphoretic. He has never been syncopal or near syncopal. Patient is on both Plavix and Eliquis and is taking them. But he is on nothing for rate control. We have metoprolol listed on his med list here. But it is not on his current med list. He is not sure when the metoprolol stopped. He does have a pacemaker in. [facility] Medical History (Updated 02/04/22 @ 12:[address] Rai Cochran MD) Abnormal EKG Atherosclerotic heart disease of [place] coronary artery without angina pectoris Chronic diastolic (congestive) heart failure Hypertension Lightheadedness Multiple premature ventricular complexes Near syncope Obesity Paroxysmal atrial fibrillation Troponin I above reference range Unstable angina Home Medications apixaban 5 mg tablet 5 mg PO BID blood thinner #60 tabs 04/06/18 [Rx Last Taken Unknown] pantoprazole 40 mg tablet,delayed release 40 mg PO DAILY 06/14/18 [History Last Taken Unknown] potassium chloride 10 mEq tablet,extended release 10 meq PO DAILY 06/14/18 [History Last Taken Unknown] allopurinol 100 mg tablet 200 mg PO DAILY 04/13/21 [History Last Taken Unknown] amlodipine 10 mg tablet 10 mg PO DAILY 04/13/21 [History Last Taken Unknown] cholecalciferol (vitamin D3) 50 mcg (2,000 unit) tablet 50 mcg PO DAILY 04/13/21 [History Last Taken Unknown] clopidogrel 75 mg tablet 75 mg PO DAILY 04/13/21 [History Last Taken Unknown] ezetimibe 10 mg tablet 10 mg PO DAILY 04/13/21 [History Last Taken Unknown] furosemide 40 mg tablet 40 mg PO DAILY 04/13/21 [History Last Taken Unknown] rosuvastatin 20 mg tablet 20 mg PO DAILY 04/13/21 [History Last Taken Unknown] colchicine 0.6 mg tablet 1.2 mg PO PRN PRN gout 02/04/22 [History Last Taken Unknown] doxazosin 1 mg tablet 1 mg PO DAILY 02/04/22 [History Last Taken Unknown] ferrous gluconate 324 mg (36 mg iron) tablet 324 mg PO DAILY 02/04/22 [History Last Taken Unknown] folic acid 1 mg tablet 2 mg PO DAILY 02/04/22 [History Last Taken Unknown] methotrexate sodium 2.5 mg tablet 2.5 mg PO DAILY 02/04/22 [History Last Taken Unknown] prednisone 10 mg tablet 10 mg PO DAILY 02/04/22 [History Last Taken Unknown] Allergy/AdvReac Type Severity Reaction Status Date / Time lisinopril Allergy Angioedema Verified 02/04/22 10:20 Penicillins [PCN] Allergy Hives Verified 02/04/22 10:20 Family History Other CVA (cerebral vascular accident) Hypertension Surgical History History of arthroscopic knee surgery History of left heart catheterization (09/13/16) Social History Smoking Status: Former smoker ROS ROS ED Constitutional Constitutional ED: Denies fever(s) or sweats Eyes Eyes: Denies change in vision ENT ENT ED: Denies rhinorrhea or sore throat Cardiovascular Cardiovascular: Reports palpitations and racing heartbeat; Denies chest pain Respiratory/Chest Respiratory/Chest: Reports dyspnea; Denies cough Gastrointestinal Gastrointestinal: Denies nausea or vomiting Musculoskeletal Musculoskeletal: Denies back pain or neck pain Integumentary Denies rash Neurologic Neurologic: Denies headache(s), paresthesias or weakness Endocrine Endocrinology: Denies polydipsia or polyuria Hematologic/Lymphatic Hematologic/Lymphatic: Reports easy bleeding and easy bruising Allergic/Immunologic Allergic/Immunologic ED: Denies urticaria EXAM Physical Exam Const Vital Signs: 02/04/22 10:21 02/04/22 10:30 Temperature 97.4 F L Temperature Source Temporal Pulse Rate 61 Respiratory Rate 18 Respiratory Effort Normal Non-Labored Blood Pressure 176/93 H Blood Pressure Mean 120 Pulse Ox 100 Positive well nourished and well developed Constitutional Narrative: Patient is awake alert nontoxic. He is joking and laughing with me in the room. General Appearance ED: well developed; Negative for pallor HEENT Reports moist mucous membranes Eyes General Eye ED: Negative for scleral icterus Neck no JVD Chest Wall inspection of chest normal Resp normal respiratory effort and clear to auscultation bilaterally Resp Narrative: Clear bilaterally including at the bases when I have him sit up. Auscultation: Negative for rales, rhonchi or wheezes Cardio regular rate and no murmurs Rate: other Other Details: Generally his rate is controlled. However, occasionally will go up to about 117. It does appear to be in atrial fibrillation which is chronic. He has an occasional PVC but I do not see any couplets or more. Rhythm: abnormal rhythm GI normal to inspection, nondistended, normoactive bowel sounds Back/Spine no CVA tenderness Extremity General Extremety ED: Negative for tenderness Neuro oriented x3 Psych mental status grossly normal Skin no rashes or lesions noted General Skin Exam: Negative for jaundice or pallor MDM MDM MDM Narrative Medical decision making narrative: Chest x-ray shows no acute process. CBC looks normal. Electrolytes are overall relatively normal. Minimal elevation in glucose. However, his troponin is high at 433. EKG is not showing acute ST elevation. It is unclear if this patient is actually having tacky dysrhythmias with symptoms or he may be having anginal episodes. He is already on Plavix and Eliquis. He states he was told not to take aspirin since he is on the other 2 meds. With his symptoms, elevated troponin we will bring him in the hospital. I discussed the case with the hospitalist. Lab Data Labs: Laboratory Results - last 24 hr 02/04/22 02/04/22 10:25 10:25 WBC 7.2 RBC 4.56 L Hgb 13.0 Hct 39.6 L MCV 86.8 MCH 28.5 MCHC 32.8 RDW Std Deviation 55.8 H RDW Coeff of Misti 17.7 H Plt Count 217 MPV 11.7 Immature Gran % (Auto) 0.400 Neut % (Auto) 61.6 Lymph % (Auto) 22.2 [place] % (Auto) 14.0 H Eos % (Auto) 1.2 Baso % (Auto) 0.6 Absolute Neuts (auto) 4.5 Absolute Lymphs (auto) 1.61 Nucleated RBC % 0 Sodium 139 Potassium 3.6 Chloride 105 Carbon Dioxide 29.0 Anion Gap 5 BUN 8 Creatinine 1.11 Estim Creat Clear Calc 65.98 Est GFR (MDRD) Af Amer 83 Est GFR (MDRD) Non-Af 69 BUN/Creatinine Ratio 7.2 L Glucose 125 H Calcium 9.3 Troponin I High Sens 433 H* Radiography Diagnostic Testing: Single view chest x-ray shows scarring toward the left lung base that is not new. Note pacer. EKG Initial EKG: Comments: EKG done for palpitations and atrial fibrillation and read by me shows atrial fibrillation with overall rate of 70 on the EKG. He has occasional paced beats and occasional ectopy. No acute ST elevation or depression. Discharge Plan Triage Chief Complaint: Chest Pain ED Provider: Rai Cochran Dx/Rx/DC Orders Clinical Impression: Elevated troponin, Atrial fibrillation, Chest pain Prescriptions: No Action apixaban 5 mg tablet 5 mg PO BID Qty: 60 11RF pantoprazole 40 mg tablet,delayed release (DR/EC) 40 mg PO DAILY potassium chloride 10 mEq tablet extended release 10 meq PO DAILY furosemide 40 mg Tablet 40 mg PO DAILY clopidogrel 75 mg Tablet 75 mg PO DAILY allopurinol 100 mg Tablet 200 mg PO DAILY amlodipine 10 mg Tablet 10 mg PO DAILY ezetimibe 10 mg Tablet 10 mg PO DAILY rosuvastatin 20 mg Tablet 20 mg PO DAILY cholecalciferol (vitamin D3) 50 mcg (2,000 unit) Tablet 50 mcg PO DAILY prednisone 10 mg tablet 10 mg PO DAILY Label Comments: TAKE 1 TABLET BY MOUTH EVERY DAY NEEDED doxazosin 1 mg Tablet 1 mg PO DAILY methotrexate sodium 2.5 mg Tablet 2.5 mg PO DAILY folic acid 1 mg tablet 2 mg PO DAILY Label Comments: TAKE 2 TABLETS BY MOUTH EVERY DAY colchicine 0.6 mg tablet 1.2 mg PO PRN PRN (Reason: gout) Label Comments: TAKE TWO TABLETS BY MOUTH TO START, THEN ONE TABLET ONE HOUR LATER FOR GOUT FLARE UP Rx Instructions: Take two 0.6 tabs one time, then take one tablet one hour later for acute fare up ferrous gluconate 324 mg (36 mg iron) Tablet 324 mg PO DAILY [facility] [Primary Care Provider] - Disposition Disposition: Acute Care Hospital [facility]
[2022-02-04 11:02] LABS: Absolute Lymphocyte Count 1.61 X10^3/uL (0.83-4.51); Absolute Neutrophil Count 4.5 X10^3/uL (2.0-7.7); Basophil# 0.04 X10^3/uL; Basophil% 0.6 % (0-1); Eosinophil# 0.09 X10^3/uL; Eosinophils% 1.2 % (0-5); Hematocrit 39.6 % (40-54); Lymphocyte # 1.61 X10^3/ul (0.83-4.51); Lymphocyte % 22.2 % (19-41); Mean Corp Hgb Conc 32.8 g/dL (32-36); Mean Corpuscular Hgb 28.5 pg (27.0-32.0); Mean Corpuscular Volume 86.8 fL (80-94); Mean Platelet Vol. 11.7 fl (6.2-12.0); Monocyte# 1.01 X10^3/uL; NRBC Flagged by Analyzer 0 % (0-5); Neutrophil # 4.46 X10^3/uL (2.7-7.7); Neutrophil % 61.6 % (47-70); Platelet Count 217 K/mm3 (150-450); RBC Distribution Width CV 17.7 % (11.6-14.6); RBC Distribution Width SD 55.8 fl (35.1-43.9); Red Blood Count 4.56 M/mm3 (4.6-6.2); White Blood Count 7.2 K/mm3 (4.4-11.0)
[2022-02-04] MEDS: Metoprolol Tartrate 5 MG/5 ML Vial IV (11:16)
--- NOTE | 2022-02-04 11:25 | RAD_ITS ---
STUDY: X-RAY CHEST REASON FOR EXAM: Male, 76 years old. 3 day history of intermittent chest pain. TECHNIQUE: Single AP portable view of the chest. COMPARISON: Comparison is made with prior study dated 03/20/2018. FINDINGS: EKG electrodes are seen. Stable minimal increased markings at the left lung base suggestive of mild scarring with blunting of the left costophrenic angle. Normal size heart. The left sided dual chamber pacemaker is seen. Normal mediastinum and rosendo. Normal visualized pulmonary arteries. There is atherosclerotic calcification of the aortic arch with tortuosity. Normal visualized thoracic spine. Normal visualized ribs, clavicles, and shoulders. There is no demonstrated abnormality of the visualized soft tissue structures of the upper abdomen. RAD/Chest 1 View (Portable) IMPRESSION: Stable mild increased linear markings at the left lung base suggestive of scarring with blunting of the left costophrenic angle. Electronically Signed: Thomas Brooks MD at 12:10 EDT ,
[2022-02-04 11:35] LABS: Anion Gap 5 (5-15); BUN 8 mg/dL (7-18); BUN/Creat Ratio 7.2 RATIO (10-20); Calcium,Total 9.3 mg/dL (8.5-10.1); Chloride 105 mmol/L (98-107); Creatinine, Serum 1.11 mg/dL (0.70-1.30); EST Glomerular Filtration Rate 69 mL/min (>60); Est Glom Filt Rate - Afr Amer 83 mL/min (>60); Estimated Creatinine Clearance 65.98 ml/min; Glucose 125 mg/dL (74-106); Potassium 3.6 mmol/L (3.5-5.1); Sodium Level 139 mmol/L (136-145); Troponin-I HS 433 pg/mL (3.0-78.0)
[2022-02-04 13:08] LABS: Troponin-I HS 388 pg/mL (3.0-78.0)
--- NOTE | 2022-02-04 13:14 | ECHOCS_ITS ---
Reason For Study: AFIB Procedure This was a 2D Doppler, Color Flow transthoracic echocardiogram. Exam performed portable in patient room. Left Ventricle Normal left ventricle. The estimated ejection fraction is 50-55 %. Right Ventricle Normal right ventricle. Normal systolic function. Atria The left atrium is mildly enlarged. Normal right atrium. Mitral Valve There is mild mitral annular calcification. Trivial mitral valve insufficiency. Tricuspid Valve Normal tricuspid valve. Trivial tricuspid valve insufficiency. Aortic Valve Mild diffuse aortic valve calcification. Pulmonic Valve The pulmonic valve is not well visualized. Great Vessels Normal aortic root. Pericardium/Pleural No pericardial effusion. MMode/2D Measurements & Calculations LVIDd: 4.7 cm IVSd: 1.5 cm LAV(MOD-bp): 73.9 ml LVIDs: 3.7 cm LVPWd: 1.4 cm LAV(MOD-bp) Indexed: 31.5 ml/m2 FS: 20.7 % LAV(MOD-sp2): 61.5 ml LAV(MOD-sp4): 73.9 ml SV(MOD-sp4): 50.8 ml SV(sp4-el): 48.2 ml LVAd ap4: 29.9 cm2 LVLd ap4: 8.8 cm EDV(MOD-sp4): 90.0 ml EDV(sp4-el): 86.1 ml LVAs ap4: 18.2 cm2 LVLs ap4: 7.4 cm ESV(MOD-sp4): 39.2 ml ESV(sp4-el): 37.9 ml EF(MOD-sp4): 56.5 % EF(sp4-el): 56.0 % LA A4 area: 25.0 cm2 LA dimension(2D): 4.8 cm RA A4 area: 24.3 cm2 Doppler Measurements & Calculations MV E max benito: 92.6 cm/sec MV V2 max: 102.9 cm/sec Ao V2 max: 96.5 cm/sec MV max P.3 mmHg Ao max P.7 mmHg MV V2 mean: 50.5 cm/sec Ao V2 mean: 64.7 cm/sec MV mean P.3 mmHg Ao mean P.0 mmHg MV V2 VTI: 25.4 cm Ao V2 VTI: 23.4 cm PA V2 max: 108.8 cm/sec TR max benito: 273.4 cm/sec PA V2 mean: 72.4 cm/sec TR max P.9 mmHg ECHO/Echo Complete W/ Contrast Interpretation Summary The estimated ejection fraction is 50-55 %. Normal LV systolic function No prior study to compare Ordering Physician: Ros Patterson Referring Physician: [facility] Performed By: Naomi Teixeira RCS
--- NOTE | 2022-02-04 13:14 | EKG12_ITS ---
Test Reason : AM EKG Blood Pressure : / mmHG Vent. Rate : 060 BPM Atrial Rate : 091 BPM P-R Int : 000 ms QRS Dur : 168 ms QT Int : 492 ms P-R-T Axes : 000 043 -09 degrees QTc Int : 492 ms Ventricular-paced rhythm Abnormal ECG When compared with ECG of 04-FEB-2022 13:41, MANUAL COMPARISON REQUIRED, DATA IS UNCONFIRMED Confirmed by JONATHON ORO, PIEDAD ([id number]), newspaper or periodical editor SANDY RAY ([id number]) on 02/06/2022 7:24:40 AM Referred By: Confirmed By:PIEDAD HOLT MD
--- NOTE | 2022-02-04 13:18 | HP.PCM.HOS_ITS ---
HPI - General General Date of Admission: 02/04/22 Date of Service: 02/04/22 Chief Complaint: Racing heart HPI Narrative Mr. Abarca is a 76-year-old male with a history of chronic diastolic heart failure, hypertension, coronary artery disease status post 2 stents in ?Early 2021 at [place], and paroxysmal A. fib who presents to [facility] 02/04/2022 with 1 week of intermittent racing heart. He has a history of A. fib and reports 1 year ago had something similar happen and he presented to [facility] in [place] and heart rate actually ended up becoming very low and he had a pacemaker placed and he also had a heart cath at that time and he endorses having 2 stents. He has done well without any problems but for the past week he has episodes of 1 to 3 minutes of heart racing very fast. When it is racing quickly he notes he has shortness of breath, said he does not necessarily have chest pain during this times but will notice he does not feel particularly right. Denies any symptoms since presenting to the emergency department. EKG in the ED showed some questionable flutter at 4-1 as well as some ectopy on telemetry. No RVR noted however did receive metoprolol. Denies any other complaints at this time. [facility] and unable to name who he follows with for cardiology. Used to follow here but now follows with the [facility]. [facility] Medical History (Updated 02/04/22 @ 13:[address] Ros Patterson MD) Abnormal EKG Atherosclerotic heart disease of [place] coronary artery without angina pectoris Chronic diastolic (congestive) heart failure Hypertension Lightheadedness Multiple premature ventricular complexes Near syncope Obesity Paroxysmal atrial fibrillation Troponin I above reference range Unstable angina Home Medications apixaban 5 mg tablet 5 mg PO BID blood thinner #60 tabs 04/06/18 [Rx Last Taken Unknown] pantoprazole 40 mg tablet,delayed release 40 mg PO DAILY 06/14/18 [History Last Taken Unknown] potassium chloride 10 mEq tablet,extended release 10 meq PO DAILY 06/14/18 [History Last Taken Unknown] allopurinol 100 mg tablet 200 mg PO DAILY 04/13/21 [History Last Taken Unknown] amlodipine 10 mg tablet 10 mg PO DAILY 04/13/21 [History Last Taken Unknown] cholecalciferol (vitamin D3) 50 mcg (2,000 unit) tablet 50 mcg PO DAILY 04/13/21 [History Last Taken Unknown] clopidogrel 75 mg tablet 75 mg PO DAILY 04/13/21 [History Last Taken Unknown] ezetimibe 10 mg tablet 10 mg PO DAILY 04/13/21 [History Last Taken Unknown] furosemide 40 mg tablet 40 mg PO DAILY 04/13/21 [History Last Taken Unknown] rosuvastatin 20 mg tablet 20 mg PO DAILY 04/13/21 [History Last Taken Unknown] colchicine 0.6 mg tablet 1.2 mg PO PRN PRN gout 02/04/22 [History Last Taken Unknown] doxazosin 1 mg tablet 1 mg PO DAILY 02/04/22 [History Last Taken Unknown] ferrous gluconate 324 mg (36 mg iron) tablet 324 mg PO DAILY 02/04/22 [History Last Taken Unknown] folic acid 1 mg tablet 2 mg PO DAILY 02/04/22 [History Last Taken Unknown] methotrexate sodium 2.5 mg tablet 2.5 mg PO DAILY 02/04/22 [History Last Taken Unknown] prednisone 10 mg tablet 10 mg PO DAILY 02/04/22 [History Last Taken Unknown] Allergy/AdvReac Type Severity Reaction Status Date / Time lisinopril Allergy Angioedema Verified 02/04/22 10:20 Penicillins [PCN] Allergy Hives Verified 02/04/22 10:20 Family History Other CVA (cerebral vascular accident) Hypertension Surgical History History of arthroscopic knee surgery History of left heart catheterization (09/13/16) Social History Smoking Status: Former smoker ROS Constitutional Constitutional: Denies change in weight, chills, fever(s) or night sweats Eyes Eyes: Denies change in vision ENT HEENT: Denies headache(s), nasal congestion or sore throat Cardiovascular Cardiovascular: Reports other Details: Racing heart intermittently for 1 week Respiratory/Chest Respiratory/Chest: Reports other Details: Shortness of breath during episodes of racing heart ; Denies cough or productive cough Gastrointestinal Gastrointestinal: Reports other Details: denies changes in bowel or bladder ; Denies abdominal pain Genitourinary Genitourinary: Reports other Details: denies changes in urination Musculoskeletal Musculoskeletal: Denies joint pain Neurologic Neurologic: Denies dizziness, focal weakness, headache(s), numbness or tingling Psychiatric Psychiatric: Denies anxiety Hematologic/Lymphatic Hematologic/Lymphatic: Denies easy bleeding Allergic/Immunologic Allergic/Immunologic: Reports other Details: denies rashes Vital Signs Vital Signs Vital Signs: 02/04/22 10:21 02/04/22 10:30 02/04/22 11:30 Temperature 97.4 F L Temperature Source Temporal Pulse Rate 61 67 Respiratory Rate 18 19 H Respiratory Effort Normal Non-Labored Blood Pressure 176/93 H 129/81 H Blood Pressure Mean 120 97 Blood Pressure Source Blood Pressure Position Blood Pressure Location Pulse Ox 100 99 Oxygen Delivery Method Room Air 02/04/22 12:54 02/04/22 12:00 02/04/22 13:00 Temperature 98 F Temperature Source Temporal Pulse Rate 60 74 60 Respiratory Rate 16 17 14 Respiratory Effort Blood Pressure 144/68 H 134/65 H 122/65 H Blood Pressure Mean 93 88 84 Blood Pressure Source Blood Pressure Position Blood Pressure Location Pulse Ox 99 100 99 Oxygen Delivery Method Room Air Room Air Room Air 02/04/22 13:16 Temperature 98.3 F Temperature Source Oral Pulse Rate 58 L Respiratory Rate 14 Respiratory Effort Blood Pressure 144/68 H Blood Pressure Mean 93 Blood Pressure Source Monitor Blood Pressure Position Semi-Fowlers Blood Pressure Location Right Arm Pulse Ox 99 Oxygen Delivery Method Room Air Weight Weight: 111.3 kg Body Mass Index (BMI) 32.3 Physical Exam Const alert and oriented x3 General Appearance: cooperative and comfortable HEENT normocephalic and head/scalp atraumatic Eyes EOMs intact bilaterally Neck supple Resp normal respiratory effort and clear to auscultation bilaterally Cardio regular rate and regular rhythm Cardio Narrative: However with some PVCs noted on telemetry GI soft to palpation, non-tender and non-distended Extremity normal to inspection Skin no rashes or lesions noted Neuro moves all extremities Psych affect normal Results Lab / Micro Data Result Diagrams: 02/04/22 10:25 02/04/22 10:25 Labs: Laboratory Results - last 24 hr 02/04/22 10:25: WBC 7.2, RBC 4.56 L, Hgb 13.0, Hct 39.6 L, MCV 86.8, MCH 28.5, MCHC 32.8, RDW Std Deviation 55.8 H, RDW Coeff of Misti 17.7 H, Plt Count 217, MPV 11.7, Immature Gran % (Auto) 0.400, Neut % (Auto) 61.6, Lymph % (Auto) 22.2, [place] % (Auto) 14.0 H, Eos % (Auto) 1.2, Baso % (Auto) 0.6, Absolute Neuts (auto) 4.5, Absolute Lymphs (auto) 1.61, Nucleated RBC % 0 02/04/22 10:25: Sodium 139, Potassium 3.6, Chloride 105, Carbon Dioxide 29.0, Anion Gap 5, BUN 8, Creatinine 1.11, Estim Creat Clear Calc 65.98, Est GFR (MDRD) Af Amer 83, Est GFR (MDRD) Non-Af 69, BUN/Creatinine Ratio 7.2 L, Glucose 125 H, Calcium 9.3, Troponin I High Sens 433 H* 02/04/22 12:34: Troponin I High Sens 388 H* Radiology Impression Chest X-Ray 02/04/22 11:25 IMPRESSION: Stable mild increased linear markings at the left lung base suggestive of scarring with blunting of the left costophrenic angle. Electronically Signed: Thomas Brooks MD at 12:10 EDT , Assessment & Plan Assessment/Plan (1) Racing heart beat: (2) Elevated troponin: (3) Paroxysmal atrial fibrillation: (4) Chronic diastolic (congestive) heart failure: (5) CAD (coronary artery disease): (6) Hypertension: QUALIFIERS: Hypertension type: essential hypertension Qualified Code(s): I10 - Essential (primary) hypertension PLAN: Plan #Racing heart Based on description and history as well as EKG suspect A. fib with RVR versus a flutter EKG appeared to have flutter waves with possible 4-1 block, will repeat EKG Admit to telemetry Was off beta-ines for unclear reason, is paced so we will resume beta-ines Will also have pacemaker interrogated Will order echo Did also some ectopy, will order magnesium level and will order TSH Given the concern for possible flutter waves on EKG as well as the racing heart Cardiology consulted #NSTEMI, likely type II Likely secondary to A. fib with RVR versus a flutter EKG nonspecific First troponin 433, will trend No overt chest pain however did feel some kind of discomfort during the episodes and has a significant troponin as well as concerned that there could be a flutter, cardiology consulted #Coronary artery disease Not in our system but he reports having 2 stents roughly 1 year ago at [facility] in [place] On Plavix and Eliquis Continue statin Troponin elevated but suspect is due to type II, will trend Lipid panel ordered #Paroxysmal atrial fibrillation See #1 Continue Eliquis #Hypertension Continue amlodipine 10 mg and Lasix #Chronic heart failure with preserved ejection fraction Continue Lasix 40 mg Daily weights Attaining repeat echo #Rheumatoid arthritis On methotrexate weekly Follows with a integration developer as an outpatient Prednisone on home med list but he reports he only takes this as needed and has not taken this recently #GERD Continue PPI #DVT ppx: On Eliquis Ros Patterson MD Charges/Coding Visit Charges Inpatient E&M: 81475 Init Hosp L2
--- NOTE | 2022-02-04 14:11 | CON.PCM.CA_ITS ---
Assessment & Plan Assessment/Plan (1) NSTEMI (non-ST elevated myocardial infarction): PLAN: Start on aspirin. Discussed with patient. Coronary angiography with possible revascularization offered. Risks benefits and alternatives explained. He understands these and wishes to proceed. We will schedule him for coronary angiography with possible revascularization for tomorrow. Hold Eliquis. Check echo. (2) CAD (coronary artery disease): PLAN: History of percutaneous intervention with stent placement. See #1 above. (3) Atrial fibrillation: PLAN: On Eliquis. Status post permanent pacemaker placement. (4) Hypertension: QUALIFIERS: Hypertension type: essential hypertension Qualified Code(s): I10 - Essential (primary) hypertension PLAN: Start beta-blockers. Nitrates. HPI Consult Data Date of Consult: 02/04/22 HPI Narrative HPI Narrative: Patient has a past medical history significant for sick sinus syndrome status post permanent pacemaker, chronic atrial fibrillation and coronary artery disease status post percutaneous intervention x2 with stents. He presented to the emergency room with complaints of his heart racing. No chest pain. Not sure about shortness of breath. Upon investigation, his first set of troponin is noted to be elevated. Subsequently he has been admitted with non-ST elevation myocardial infarction. [facility], LAT[facility] Medical History (Updated 02/04/22 @ 14:[address] Priyanka Luna MD) Abnormal EKG Atherosclerotic heart disease of [place] coronary artery without angina pectoris Chronic diastolic (congestive) heart failure Hypertension Lightheadedness Multiple premature ventricular complexes Near syncope Obesity Paroxysmal atrial fibrillation Troponin I above reference range Unstable angina Home Medications apixaban 5 mg tablet 5 mg PO BID blood thinner #60 tabs 04/06/18 [Rx Last Taken Unknown] pantoprazole 40 mg tablet,delayed release 40 mg PO DAILY 06/14/18 [History Last Taken Unknown] potassium chloride 10 mEq tablet,extended release 10 meq PO DAILY 06/14/18 [History Last Taken Unknown] allopurinol 100 mg tablet 200 mg PO DAILY 04/13/21 [History Last Taken Unknown] amlodipine 10 mg tablet 10 mg PO DAILY 04/13/21 [History Last Taken Unknown] cholecalciferol (vitamin D3) 50 mcg (2,000 unit) tablet 50 mcg PO DAILY 04/13/21 [History Last Taken Unknown] clopidogrel 75 mg tablet 75 mg PO DAILY 04/13/21 [History Last Taken Unknown] ezetimibe 10 mg tablet 10 mg PO DAILY 04/13/21 [History Last Taken Unknown] furosemide 40 mg tablet 40 mg PO DAILY 04/13/21 [History Last Taken Unknown] rosuvastatin 20 mg tablet 20 mg PO DAILY 04/13/21 [History Last Taken Unknown] colchicine 0.6 mg tablet 1.2 mg PO PRN PRN gout 02/04/22 [History Last Taken Unknown] doxazosin 1 mg tablet 1 mg PO DAILY 02/04/22 [History Last Taken Unknown] ferrous gluconate 324 mg (36 mg iron) tablet 324 mg PO DAILY 02/04/22 [History Last Taken Unknown] folic acid 1 mg tablet 2 mg PO DAILY 02/04/22 [History Last Taken Unknown] methotrexate sodium 2.5 mg tablet 2.5 mg PO QWEEK 02/04/22 [History Last Taken Unknown] prednisone 10 mg tablet 10 mg PO DAILY 02/04/22 [History Last Taken Unknown] Allergy/AdvReac Type Severity Reaction Status Date / Time lisinopril Allergy Angioedema Verified 02/04/22 10:20 Penicillins [PCN] Allergy Hives Verified 02/04/22 10:20 Family History Other CVA (cerebral vascular accident) Hypertension Surgical History History of arthroscopic knee surgery History of left heart catheterization (09/13/16) Social History Smoking Status: Former smoker Physical Exam Narrative Comfortable. No distress. Heart sounds 1 and 2 are normal. No murmurs or rubs are noted. Chest is clear to auscultation bilaterally. Abdomen soft. Alert oriented x3. No ankle edema noted. Risk Stratification Risk Stratification Applicable: No Objective Data Vital Signs: Vital Signs Temp Pulse Resp BP Pulse Ox O2 Del Method 98.3 F 58 L 14 144/68 H 99 Room Air 02/04/22 13:16 02/04/22 13:16 02/04/22 13:16 02/04/22 13:16 02/04/22 13:16 02/04/22 13:16 Oxygen Delivery Method Room Air Weight: 239 lb 10.279 oz Body Mass Index (BMI) 29.9 Lab / Micro Data Attestation: I reviewed the patient's lab results. Result Diagrams: 02/04/22 10:25 02/04/22 10:25 Labs: Laboratory Results - last 24 hr 02/04/22 10:25: WBC 7.2, RBC 4.56 L, Hgb 13.0, Hct 39.6 L, MCV 86.8, MCH 28.5, MCHC 32.8, RDW Std Deviation 55.8 H, RDW Coeff of Misti 17.7 H, Plt Count 217, MPV 11.7, Immature Gran % (Auto) 0.400, Neut % (Auto) 61.6, Lymph % (Auto) 22.2, [place] % (Auto) 14.0 H, Eos % (Auto) 1.2, Baso % (Auto) 0.6, Absolute Neuts (auto) 4.5, Absolute Lymphs (auto) 1.61, Nucleated RBC % 0 02/04/22 10:25: Sodium 139, Potassium 3.6, Chloride 105, Carbon Dioxide 29.0, Anion Gap 5, BUN 8, Creatinine 1.11, Estim Creat Clear Calc 65.98, Est GFR (MDRD) Af Amer 83, Est GFR (MDRD) Non-Af 69, BUN/Creatinine Ratio 7.2 L, Glucose 125 H, Calcium 9.3, Troponin I High Sens 433 H* 02/04/22 12:34: Troponin I High Sens 388 H* Rhythm Strip Rhythm Strip: Atrial fibrillation. Ventricular paced. Cardiology Labs/Tests 02/04/22 10:25: WBC 7.2, RBC 4.56 L, Hgb 13.0, Hct 39.6 L, MCV 86.8, MCH 28.5, MCHC 32.8, Plt Count 217, MPV 11.7, Immature Gran % (Auto) 0.400, Neut % (Auto) 61.6, Lymph % (Auto) 22.2, [place] % (Auto) 14.0 H, Eos % (Auto) 1.2, Baso % (Auto) 0.6, Absolute Neuts (auto) 4.5, Nucleated RBC % 0 02/04/22 10:25: Sodium 139, Potassium 3.6, Chloride 105, Carbon Dioxide 29.0, Anion Gap 5, BUN 8, Creatinine 1.11, Est GFR (MDRD) Af Amer 83, Est GFR (MDRD) Non-Af 69, BUN/Creatinine Ratio 7.2 L, Glucose 125 H, Calcium 9.3 Rhythm: EKG: ECHO: Stress Test: Cardiac Cath: PCI: CT Surgery: Holter monitor: EPS: PPM: CXR: Chest CT Scan: Radiography Diagnostic Testing: Radiology Impression Chest X-Ray 02/04/22 11:25 IMPRESSION: Stable mild increased linear markings at the left lung base suggestive of scarring with blunting of the left costophrenic angle. Electronically Signed: Thomas Brooks MD at 12:10 EDT ,
[2022-02-04 14:20] LABS: Magnesium 2.1 mg/dL (1.6-2.6)
--- NOTE | 2022-02-04 15:07 | CASEMGMT ---
This RN CM to room to complete CM assessment and pt is currently getting ECHO. SStaten RN CM
[2022-02-04] MEDS: Isosorbide Mononitrate 30 MG Tablet PO (15:16)
[2022-02-04] MEDS: Acetaminophen 325 MG Tablet 650 MG PO (18:22)
[2022-02-04] MEDS: Atorvastatin Calcium 40 MG Tablet PO (21:30)
[2022-02-04] MEDS: Metoprolol Tartrate 25 MG Tablet PO (21:30)
[2022-02-04] MEDS: MELATONIN 3 MG TABLET PO (21:30)
[2022-02-05] VITALS (20 sets, daily range): BP systolic 99–132; BP diastolic 61–79; PULSE 58–66; RESP 14–18; TEMP 36.6–37.2; O2SAT 96–100
[2022-02-05] MEDS: amLODIPine 10 MG Tablet PO (05:27)
[2022-02-05] MEDS: Clopidogrel Bisulfate 75 MG Tablet PO (05:27)
[2022-02-05] MEDS: 0.9% Normal Saline 1,000 ML 15 ML IV (05:27)
[2022-02-05] MEDS: Metoprolol Tartrate 25 MG Tablet PO ×2 (05:31→21:40)
[2022-02-05] MEDS: Aspirin E.C. 81 MG Tablet PO (05:32)
[2022-02-05] MEDS: Isosorbide Mononitrate 30 MG Tablet PO (05:32)
--- NOTE | 2022-02-05 05:55 | EKG12_ITS ---
Test Reason : CP Blood Pressure : / mmHG Vent. Rate : 060 BPM Atrial Rate : 202 BPM P-R Int : 000 ms QRS Dur : 170 ms QT Int : 496 ms P-R-T Axes : 000 039 207 degrees QTc Int : 496 ms Ventricular-paced rhythm Abnormal ECG When compared with ECG of 04-FEB-2022 10:22, MANUAL COMPARISON REQUIRED, DATA IS UNCONFIRMED Confirmed by JONATHON ROO, PIEDAD ([id number]), videotape editor SANDY RAY ([id number]) on 02/06/2022 7:25:04 AM Referred By: Leonardo Confirmed By:PIEDAD HOLT MD
[2022-02-05 07:26] LABS: Absolute Lymphocyte Count 1.78 X10^3/uL (0.83-4.51); Absolute Neutrophil Count 3.2 X10^3/uL (2.0-7.7); Basophil# 0.06 X10^3/uL; Eosinophil# 0.16 X10^3/uL; Eosinophils% 2.6 % (0-5); Hematocrit 33.9 % (40-54); Hemoglobin 11.3 g/dL (13.0-16.5); Lymphocyte # 1.78 X10^3/ul (0.83-4.51); Lymphocyte % 29.4 % (19-41); Mean Corp Hgb Conc 33.3 g/dL (32-36); Mean Corpuscular Hgb 28.9 pg (27.0-32.0); Mean Corpuscular Volume 86.7 fL (80-94); Mean Platelet Vol. 11.5 fl (6.2-12.0); Monocyte# 0.78 X10^3/uL; Monocyte% 12.9 % (0-10); NRBC Flagged by Analyzer 0 % (0-5); Neutrophil # 3.24 X10^3/uL (2.7-7.7); Neutrophil % 53.6 % (47-70); Platelet Count 198 K/mm3 (150-450); RBC Distribution Width CV 17.8 % (11.6-14.6); Red Blood Count 3.91 M/mm3 (4.6-6.2); White Blood Count 6.1 K/mm3 (4.4-11.0)
[2022-02-05 08:08] LABS: ALB/GLOB Ratio 1.1 RATIO (0.9-2.4); AST(SGOT) 16 U/L (15-37); Alanine Aminotransfer ALT/SGPT 17 U/L (16-61); Albumin, Serum 3.4 g/dL (3.2-5.0); Alkaline Phosphatase 74 U/L (45-117); Anion Gap 5 (5-15); BUN 12 mg/dL (7-18); BUN/Creat Ratio 11.2 RATIO (10-20); Calcium,Total 8.9 mg/dL (8.5-10.1); Chloride 106 mmol/L (98-107); Cholesterol 101 mg/dL (200); Creatinine, Serum 1.07 mg/dL (0.70-1.30); EST Glomerular Filtration Rate 72 mL/min (>60); Est Glom Filt Rate - Afr Amer 87 mL/min (>60); Estimated Creatinine Clearance 72.39 ml/min; Globulin 3.1 g/dL (2.2-4.2); Glucose 109 mg/dL (74-106); High Density Lipoprotein 52 mg/dL; Magnesium 2.3 mg/dL (1.6-2.6); Potassium 3.7 mmol/L (3.5-5.1); Protein, Total 6.5 g/dL (6.4-8.2); Sodium Level 140 mmol/L (136-145); Thyroid Stim Hormone (TSH) 2.43 uIU/mL (0.358-3.74); Triglycerides 75 mg/dL; Very Low Density Lipoprotein 15 mg/dL (5-40)
--- NOTE | 2022-02-05 12:00 | CASEMGMT ---
RN CM [employer]PERVISOR CM to room to meet with patient for initial transition planning/care coordination assessment. RN PRISCILA introduced self and role at [facility].? Pt voices understanding and consents to assessment at this time.? Pt resting in bed in no distress at this time.? Family @ bedside and pt agreeable to them all being present during assessment. Pt is A/O at this time and answers all questions appropriately.?? Care providers, pharmacy, and demographics verified/updated at this time. PCP: Dr Hi @ [facility] Specialists: Dr Sun-cardiology @ [facility]. Pt due to f/u June,, for one-year f/u after pacer. Dr Larios-rheumatology Preferred Pharmacy: [facility] Insurance: [place], [facility] A Prescription Benefit:?VA benefits only Living Will/HPOA:?Has both LW and HPOA, who is his son, Ray LNOK: Son/POA, Ray. Dtr, Courtney Living Arrangements: Lives alone in one--story home w/3 steps to enter. Independent w/ADL's and IADL's. Transportation:?Pt states drives self and states no transportation concerns at this time.? DME: ?Has a BP machine. Pt states no need for further DME at this time.? HHC/SNF: No hx of either. No needs identified. Pt wishes to return home and states has no concerns with going home at time of discharge.? Pt states does not smoke or drink ETOH.? CM to follow for any discharge planning/needs.? Pt voices no concerns/needs at this time.? Advised pt to ask for CM if any questions/concerns/needs arise.? Voices understanding. PLAN:??Home Christina BIGGS RN CM
[2022-02-05] MEDS: Allopurinol 100 MG Tablet 200 MG PO (12:12)
[2022-02-05] MEDS: Furosemide 40 MG Tablet PO (12:13)
[2022-02-05] MEDS: Ezetimibe 10 MG Tablet PO (12:13)
[2022-02-05] MEDS: Pantoprazole Sodium 40 MG Tablet PO (12:13)
--- NOTE | 2022-02-05 12:32 | PCM.PN.HOSP ---
Subjective Subjective DOS: 02/05/2022 CC: Follow-up racing heart Doing well, status post heart cath. Reports nothing was found. Denies any chest pain or shortness of breath. No swelling in legs, overall doing much better. Objective Data Objective Data Vital Signs: Vital Signs Temp Pulse Resp BP Pulse Ox O2 Del Method 97.8 F 62 17 110/70 99 Room Air 02/05/22 08:04 02/05/22 11:37 02/05/22 11:37 02/05/22 11:37 02/05/22 10:40 02/05/22 11:37 Oxygen Delivery Method Room Air Weight: 108.3 kg Body Mass Index (BMI) 29.9 Lab / Micro Data Result Diagrams: 02/05/22 07:07 02/05/22 07:07 Labs: Laboratory Results - last 24 hr 02/04/22 12:34: Troponin I High Sens 388 H* 02/04/22 12:34: Magnesium 2.1 02/05/22 07:07: WBC 6.1, RBC 3.91 L, Hgb 11.3 L, Hct 33.9 L, MCV 86.7, MCH 28.9, MCHC 33.3, RDW Std Deviation 56.0 H, RDW Coeff of Misti 17.8 H, Plt Count 198, MPV 11.5, Immature Gran % (Auto) 0.500, Neut % (Auto) 53.6, Lymph % (Auto) 29.4, [place] % (Auto) 12.9 H, Eos % (Auto) 2.6, Baso % (Auto) 1.0, Absolute Neuts (auto) 3.2, Absolute Lymphs (auto) 1.78, Nucleated RBC % 0 02/05/22 07:07: Sodium 140, Potassium 3.7, Chloride 106, Carbon Dioxide 29.0, Anion Gap 5, BUN 12, Creatinine 1.07, Estim Creat Clear Calc 72.39, Est GFR (MDRD) Af Amer 87, Est GFR (MDRD) Non-Af 72, BUN/Creatinine Ratio 11.2, Glucose 109 H, Calcium 8.9, Magnesium 2.3, Total Bilirubin 1.00, AST 16, ALT 17, Alkaline Phosphatase 74, Total Protein 6.5, Albumin 3.4, Globulin 3.1, Albumin/Globulin Ratio 1.1, Triglycerides 75, Cholesterol 101, LDL Cholesterol 34, VLDL Cholesterol 15, HDL Cholesterol 52, TSH 2.43 Radiography Diagnostic Testing: Radiology Impression Echocardiogram 02/04/22 13:14 Interpretation Summary The estimated ejection fraction is 50-55 %. Normal LV systolic function No prior study to compare Ordering Physician: Ros Patterson Referring Physician: [facility] Performed By: Naomi Teixeira RCS Rhythm Strip Rhythm Strip: Atrial fibrillation. Ventricular paced. Physical Exam Const alert and oriented x3 General Appearance: cooperative and comfortable HEENT normocephalic and head/scalp atraumatic Eyes EOMs intact bilaterally Neck supple Resp normal respiratory effort and clear to auscultation bilaterally Cardio regular rate and regular rhythm Cardio Narrative: However with some PVCs noted on telemetry GI soft to palpation, non-tender and non-distended Extremity normal to inspection Skin no rashes or lesions noted Neuro moves all extremities Psych affect normal Assessment & Plan Assessment/Plan (1) Racing heart beat: (2) Elevated troponin: (3) Paroxysmal atrial fibrillation: (4) Chronic diastolic (congestive) heart failure: (5) CAD (coronary artery disease): (6) Hypertension: QUALIFIERS: Hypertension type: essential hypertension Qualified Code(s): I10 - Essential (primary) hypertension PLAN: Plan #Racing heart Based on description and history as well as EKG suspect A. fib with RVR versus a flutter EKG appeared to have flutter waves with possible 4-1 block, will repeat EKG Admit to telemetry Was off beta-ines for unclear reason, is paced so we will resume beta-ines Will also have pacemaker interrogated Will order echo Did also some ectopy, will order magnesium level and will order TSH Given the concern for possible flutter waves on EKG as well as the racing heart Cardiology consulted 02/05: Today, patient reports no lesions found. Medications to be adjusted, cardiology following. Echo with EF 50 to 55% possible discharge home tomorrow if stable #NSTEMI, likely type II Likely secondary to A. fib with RVR versus a flutter EKG nonspecific First troponin 433, will trend No overt chest pain however did feel some kind of discomfort during the episodes and has a significant troponin as well as concerned that there could be a flutter, cardiology consulted 02/05: Per patient nothing found on cardiac cath, will await official report #Coronary artery disease Not in our system but he reports having 2 stents roughly 1 year ago at [facility] in [place] On Plavix and Eliquis Continue statin Troponin elevated but suspect is due to type II, will trend Lipid panel ordered 02/05: On aspirin, Plavix, statin and Eliquis held #Paroxysmal atrial fibrillation See #1 Continue Eliquis 02/05: On aspirin, Plavix, statin and Eliquis held #Hypertension Continue amlodipine 10 mg and Lasix #Chronic heart failure with preserved ejection fraction Continue Lasix 40 mg Daily weights Attaining repeat echo 02/05: Repeat echo with EF 50-55% #Rheumatoid arthritis On methotrexate weekly Follows with a polarity tester as an outpatient Prednisone on home med list but he reports he only takes this as needed and has not taken this recently #GERD Continue PPI #DVT ppx: On Eliquis Ros Patterson MD Charges/Coding Visit Charges Inpatient E&M: 23129 Subs Hosp L2
--- NOTE | 2022-02-05 13:13 | PRO.PCM_ITS ---
Procedure Report Procedure performed; 1. Moderate sedation 2. Selective left coronary angiography 3. Selective right coronary angiography 4. Measurement of LVEDP 5. Placement of TR band to right radial artery arteriotomy site. Preprocedure diagnosis; This is a 76-year-old patient who was presented to the hospital with symptoms of palpitation he does not have any active chest pain and he had known cardiac history with a prior history of PCI stent to the LAD x2 history of pacemaker with underlying sick sinus syndrome and chronic atrial fibrillation Hypertension Based on his clinical presentation he was evaluated with a series of cardiac biomarkers and high sensitive troponin went up to the 433 and he was on medical therapy. And patient was brought to the [facility] for further evaluation. Consent; Risk and benefit of procedure explained in detail to patient elected to proceed informed consent obtained Access; 6 Divehi sheath placed the right radial artery A cocktail of verapamil, heparin as well as nitroglycerin was given through the sheath Diagnostic catheter used; 1. 5 Divehi Abercrombie catheter 2. 5 Divehi JR4 catheter Procedure in detail; Under fluoroscopic guidance we proceed with a Abercrombie catheter advanced ascending aorta cannulated the left main without difficulty Following this multiple views the left cholecystomy obtained Following this catheter exchanged for 5 Divehi R4 and cannulated the RCA multiple views of the RCA was obtained. Following this all angiography were study Findings; 1. LVEDP measured around 40 mmHg There is no systolic gradient across aortic valve. Low ventriculogram was not done in this case patient had an echocardiogram which showed LV function is preserved. With no significant valvular abnormality. Finding of coronary angiography; 1. Left main large vessel bifurcating into left anterior descending and the left circumflex Angiographically the left main had no significant atherosclerosis 2. The left anterior descending artery patency of the stent in the mid LAD was demonstrated There is a small D2 branch which is jailed by the stent and had a lesion of ostial around 80% Angiographically rest of the LAD is patent with no significant atherosclerosis. 3. The left circumflex is a large vessel dominant OM 2 had a proximal around 80% which is a small vessel 4. RCA moderate size with mid RCA had around 40-50%. Conclusion this patient is 76-year-old with a history of CAD has prior LAD stent x2, pacemaker with a chronic atrial fibrillation hypertension presenting with symptoms of racing heartbeat also had chronic diastolic heart failure. Multiple PACs were noted and PVCs Recommendation ,cardiac care plan: 1. medical therapy to continue on the dual antiplatelet therapy. Which include Plavix 75 mg once a day in addition to low-dose aspirin and patient has been on apixaban 5 mg twice daily , continue on beta-ines and continue on statin rosuvastatin 20 mg at bedtime 2. Patient can be set up for cardiac rehab program, phase 1 as an outpatient 3. Patient to follow-up with . primary heel attacher wood to set up by for continuation of cardiac care. TR band applied to right radial artery arteriotomy site with no complication in the [facility].
--- NOTE | 2022-02-05 14:37 | CASEMGMT ---
This IZABELA FRANCOIS received message from Myla at [facility] regarding pt. Myla's contact info: [phone] ext [phone]. Message left with her about plan for pt to d/c tomorrow and to contact [facility] for clinicals if they have still not received them. CM to follow for any further concerns. SStata GURROLA CM
--- NOTE | 2022-02-05 19:27 | NURSING ---
Charting reviewed with Vanessa Zaman RN
[2022-02-05] MEDS: Atorvastatin Calcium 40 MG Tablet PO (21:40)
[2022-02-06 03:00] VITALS: PULSE 60
[2022-02-06 03:38] VITALS: BP 124/74; PULSE 59; RESP 17; TEMP 36.9; O2SAT 98
[2022-02-06 06:59] LABS: Absolute Lymphocyte Count 1.72 X10^3/uL (0.83-4.51); Basophil# 0.04 X10^3/uL; Basophil% 0.6 % (0-1); Eosinophil# 0.15 X10^3/uL; Eosinophils% 2.2 % (0-5); Hematocrit 35.3 % (40-54); Hemoglobin 11.5 g/dL (13.0-16.5); Lymphocyte # 1.72 X10^3/ul (0.83-4.51); Lymphocyte % 25.3 % (19-41); Mean Corp Hgb Conc 32.6 g/dL (32-36); Mean Corpuscular Hgb 28.5 pg (27.0-32.0); Mean Corpuscular Volume 87.4 fL (80-94); Mean Platelet Vol. 11.4 fl (6.2-12.0); Monocyte# 0.89 X10^3/uL; Monocyte% 13.1 % (0-10); NRBC Flagged by Analyzer 0 % (0-5); Neutrophil # 3.98 X10^3/uL (2.7-7.7); Neutrophil % 58.4 % (47-70); Platelet Count 190 K/mm3 (150-450); RBC Distribution Width CV 18.2 % (11.6-14.6); RBC Distribution Width SD 57.6 fl (35.1-43.9); Red Blood Count 4.04 M/mm3 (4.6-6.2); White Blood Count 6.8 K/mm3 (4.4-11.0)
[2022-02-06 07:00] VITALS: PULSE 60
[2022-02-06 07:22] LABS: Anion Gap 7 (5-15); BUN 18 mg/dL (7-18); BUN/Creat Ratio 15.4 RATIO (10-20); Calcium,Total 8.8 mg/dL (8.5-10.1); Chloride 104 mmol/L (98-107); Creatinine, Serum 1.17 mg/dL (0.70-1.30); EST Glomerular Filtration Rate 65 mL/min (>60); Est Glom Filt Rate - Afr Amer 78 mL/min (>60); Glucose 101 mg/dL (74-106); Potassium 3.7 mmol/L (3.5-5.1); Sodium Level 140 mmol/L (136-145)
[2022-02-06 08:40] VITALS: BP 115/71; PULSE 60; RESP 16; TEMP 36.7; O2SAT 99
[2022-02-06] MEDS: Allopurinol 100 MG Tablet 200 MG PO (08:42)
[2022-02-06] MEDS: Aspirin E.C. 81 MG Tablet PO (08:42)
[2022-02-06 08:43] VITALS: PULSE 60
[2022-02-06] MEDS: Isosorbide Mononitrate 30 MG Tablet PO (08:43)
[2022-02-06] MEDS: amLODIPine 10 MG Tablet PO (08:43)
[2022-02-06] MEDS: Metoprolol Tartrate 25 MG Tablet PO (08:43)
[2022-02-06] MEDS: Furosemide 40 MG Tablet PO (08:43)
[2022-02-06] MEDS: Ezetimibe 10 MG Tablet PO (08:44)
[2022-02-06] MEDS: Clopidogrel Bisulfate 75 MG Tablet PO (08:44)
[2022-02-06] MEDS: Pantoprazole Sodium 40 MG Tablet PO (08:44)
--- NOTE | 2022-02-06 13:10 | DS.PCM_ITS ---
Providers Date of Admission: 02/04/22 Date of Discharge: 02/06/22 Primary Care Physician: [facility] Consultations 02/04/22 13:13 Consult: Cardiology Routine Consulting Provider: Priyanka Luna Reason for Consult: ?aflutter on EKG +nstemi EMERGENT Consult: No MD Notified: Yes Date Notified: 02/04/22 Time Notified: 13:17 Method of Notification: Text Reason For Visit: ELEVATED TROPONIN Diagnosis Discharge Diagnosis (1) Racing heart beat: Status: Acute Code(s): R00.0 - Tachycardia, unspecified (2) Elevated troponin: Status: Acute Code(s): R77.8 - Other specified abnormalities of plasma proteins (3) Paroxysmal atrial fibrillation: Status: Chronic Code(s): I48.0 - Paroxysmal atrial fibrillation (4) Chronic diastolic (congestive) heart failure: Status: Chronic Code(s): I50.32 - Chronic diastolic (congestive) heart failure (5) CAD (coronary artery disease): Status: Acute Code(s): I25.10 - Atherosclerotic heart disease of [place] coronary artery without angina pectoris (6) Hypertension: Status: Chronic Code(s): I10 - Essential (primary) hypertension Qualifiers: Hypertension type: essential hypertension Qualified Code(s): I10 - Essential (primary) hypertension Plan #Racing heart #NSTEMI, likely type II #Coronary artery disease #Paroxysmal atrial fibrillation #Hypertension #Chronic heart failure with preserved ejection fraction #Rheumatoid arthritis #GERD Medications at Discharge Home Medications apixaban 5 mg tablet 5 mg PO BID blood thinner #60 tabs 04/06/18 pantoprazole 40 mg tablet,delayed release 40 mg PO DAILY 06/14/18 potassium chloride 10 mEq tablet,extended release 10 meq PO DAILY 06/14/18 allopurinol 100 mg tablet 200 mg PO DAILY 04/13/21 amlodipine 10 mg tablet 10 mg PO DAILY 04/13/21 cholecalciferol (vitamin D3) 50 mcg (2,000 unit) tablet 50 mcg PO DAILY 04/13/21 clopidogrel 75 mg tablet 75 mg PO DAILY 04/13/21 ezetimibe 10 mg tablet 10 mg PO DAILY 04/13/21 furosemide 40 mg tablet 40 mg PO DAILY 04/13/21 rosuvastatin 20 mg tablet 20 mg PO DAILY 04/13/21 colchicine 0.6 mg tablet 1.2 mg PO PRN PRN gout 02/04/22 doxazosin 1 mg tablet 1 mg PO DAILY 02/04/22 ferrous gluconate 324 mg (36 mg iron) tablet 324 mg PO DAILY 02/04/22 folic acid 1 mg tablet 2 mg PO DAILY 02/04/22 methotrexate sodium 2.5 mg tablet 2.5 mg PO QWEEK 02/04/22 prednisone 10 mg tablet 10 mg PO DAILY 02/04/22 aspirin 81 mg tablet,delayed release 81 mg PO BREAKFAST 30 days #30 tabs 02/06/22 isosorbide mononitrate 30 mg tablet,extended release 24 hr 30 mg PO DAILY 30 days #30 tabs 02/06/22 metoprolol succinate 50 mg capsule sprinkle, ext. release 24 hr 50 mg PO DAILY 30 days #30 ea 02/06/22 Hospital Course Procedures Cardiac catheterization Summary of Care Provided Minutes Spent on Discharge: 32 Hospital Course: Mr. Abarca is a 76-year-old male with a history of chronic diastolic heart failure, hypertension, coronary artery disease status post 2 stents in ?Early 2021 at [place], and paroxysmal A. fib who presents to [facility] 02/04/2022 with 1 week of intermittent racing heart.?He has a history of A. fib and reports 1 year ago had something similar happen and he presented to [facility] in [place] and heart rate actually ended up becoming very low and he had a pace maker placed and he also had a heart cath at that time and he endorses having 2 stents.? He has done well without any problems but for the past week he has episodes of 1 to 3 minutes of heart racing very fast. EKG in the ED showed some questionable flutter at 4-1 as well as some ectopy on telemetry.? No RVR noted however did receive metoprolol.? Given his racing heart as well as him being found to have an NSTEMI with first troponin 433 he was offered cardiac cath per cardiology and did not require any stenting. He did well and stabilized on current medications plus aspirin and metoprolol and Imdur. Discussed with cardiology and patient cleared for discharge. Physical Exam Const alert and oriented x3 General Appearance: cooperative and comfortable HEENT normocephalic and head/scalp atraumatic Eyes EOMs intact bilaterally Neck supple Resp normal respiratory effort and clear to auscultation bilaterally Cardio regular rate and regular rhythm Cardio Narrative: However with some PVCs noted on telemetry GI soft to palpation, non-tender and non-distended Extremity normal to inspection Skin no rashes or lesions noted Neuro moves all extremities Psych affect normal Weight / BMI Weight Weight: 111.1 kg Body Mass Index (BMI) 29.9 ABG / Lab / Microbiology Data Result Diagrams: 02/06/22 06:40 02/06/22 06:40 Laboratory: Laboratory Results - last 24 hr 02/06/22 06:40: WBC 6.8, RBC 4.04 L, Hgb 11.5 L, Hct 35.3 L, MCV 87.4, MCH 28.5, MCHC 32.6, RDW Std Deviation 57.6 H, RDW Coeff of Misti 18.2 H, Plt Count 190, MPV 11.4, Immature Gran % (Auto) 0.400, Neut % (Auto) 58.4, Lymph % (Auto) 25.3, [place] % (Auto) 13.1 H, Eos % (Auto) 2.2, Baso % (Auto) 0.6, Absolute Neuts (auto) 4.0, Absolute Lymphs (auto) 1.72, Nucleated RBC % 0 02/06/22 06:40: Sodium 140, Potassium 3.7, Chloride 104, Carbon Dioxide 29.0, Anion Gap 7, BUN 18, Creatinine 1.17, Estim Creat Clear Calc 66.20, Est GFR (MDRD) Af Amer 78, Est GFR (MDRD) Non-Af 65, BUN/Creatinine Ratio 15.4, Glucose 101, Calcium 8.8 D/C Instructions Discharge Diet: - (3 g sodium restriction) Meaningful Use Info Meaningful Use Diagnoses (Choose all that apply): None applicable Discharge Plan Admission Admit Date/Time: 02/04/22 13:23 Primary Reason for Your Visit: Rapid heart beat Attending Provider: Ros Patterson Primary Care Provider: [facility] Consulting Providers: Priyanka Luna Instructions Patient Instructions: AFib Dc Additional Instructions / Restrictions: *Please take this with you to your next doctors appointment* ?You will need to follow-up with cardiology upon discharge, please 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 Tellez to schedule this. If you prefer to follow-up in this area, Dr. Luna's contact information has been provided ?Continue to follow with your rheumatoid arthritis doctor. Continue take your methotrexate as prescribed and you indicated you only take prednisone as needed Continue your home Lasix, azithromycin, clopidogrel, rosuvastatin, and Eliquis ? You have been started on aspirin 81 mg which he will take once daily ? You have been started on isosorbide mononitrate which she will take 30 mg once daily ? You have been started on metoprolol, you can take metoprolol succinate once daily 50 mg. ? These medications have been sent to your preferred pharmacy on file with the [facility] in [facility], you have no new medication that will need to be taken tonight so these can be picked up tomorrow -Please call your primary care provider's office upon discharge to schedule a hospital follow up within 1 week. -For any concerning signs or symptoms please call 911 or proceed to the nearest emergency department Discharge Orders/Prescriptions Prescriptions: New isosorbide mononitrate 30 mg Tablet Extended Release 24 Hr 30 mg PO DAILY 30 Days Qty: 30 0RF aspirin 81 mg Tablet,Delayed Release (Dr/Ec) 81 mg PO BREAKFAST 30 Days Qty: 30 0RF metoprolol succinate 50 mg capsule,sprinkle,ER 24hr 50 mg PO DAILY 30 Days Qty: 30 0RF Continued apixaban 5 mg tablet 5 mg PO BID Qty: 60 11RF pantoprazole 40 mg tablet,delayed release (DR/EC) 40 mg PO DAILY potassium chloride 10 mEq tablet extended release 10 meq PO DAILY furosemide 40 mg Tablet 40 mg PO DAILY clopidogrel 75 mg Tablet 75 mg PO DAILY allopurinol 100 mg Tablet 200 mg PO DAILY amlodipine 10 mg Tablet 10 mg PO DAILY ezetimibe 10 mg Tablet 10 mg PO DAILY rosuvastatin 20 mg Tablet 20 mg PO DAILY cholecalciferol (vitamin D3) 50 mcg (2,000 unit) Tablet 50 mcg PO DAILY prednisone 10 mg tablet 10 mg PO DAILY Label Comments: TAKE 1 TABLET BY MOUTH EVERY DAY NEEDED doxazosin 1 mg Tablet 1 mg PO DAILY methotrexate sodium 2.5 mg Tablet 2.5 mg PO QWEEK Rx Instructions: takes on saturdays folic acid 1 mg tablet 2 mg PO DAILY Label Comments: TAKE 2 TABLETS BY MOUTH EVERY DAY colchicine 0.6 mg tablet 1.2 mg PO PRN PRN (Reason: gout) Label Comments: TAKE TWO TABLETS BY MOUTH TO START, THEN ONE TABLET ONE HOUR LATER FOR GOUT FLARE UP Rx Instructions: Take two 0.6 tabs one time, then take one tablet one hour later for acute fare up ferrous gluconate 324 mg (36 mg iron) Tablet 324 mg PO DAILY Referrals / Follow Up: Priyanka Luna MD [Med Staff - Active Staff] - See Referral Note (If you prefer to follow with cardiology in [place], please contact Dr. Simental's office.) [facility] [Primary Care Provider] - Within 1 Week Disposition Disposition (needs filled in before D/C Order can be placed): Home, Self Care Charges/Coding Visit Charges Inpatient E&M: 82964 Disch Hosp
[2022-02-06 14:00] VITALS: BP 120/86; PULSE 60; RESP 12; TEMP 36.6; O2SAT 99
== END 2022-02-06 14:31 | disposition home or self-care (01) | DRG 249 ==
LOC: ED 12:37 → PCU 12:50
PROVIDERS: Admitting Provider Internal Medicine; Emergency Provider Emergency Medicine; Visit Provider Internal Medicine
DX: I21.A1 Myocardial infarction type 2 (principal); I50.32 Chronic diastolic (congestive) heart failure; I49.5 Sick sinus syndrome; I11.0 Hypertensive heart disease with heart failure; I48.0 Paroxysmal atrial fibrillation; M06.9 Rheumatoid arthritis, unspecified; K21.9 Gastro-esophageal reflux disease without esophagitis; I25.10 Atherosclerotic heart disease of native coronary artery without angina pectoris; Z95.0 Presence of cardiac pacemaker; Z95.5 Presence of coronary angioplasty implant and graft; Z79.01 Long term (current) use of anticoagulants; Z79.02 Long term (current) use of antithrombotics/antiplatelets; Z79.82 Long term (current) use of aspirin; Z79.899 Other long term (current) drug therapy; Z87.891 Personal history of nicotine dependence
CPT/HCPCS: 36415; 71045; 80048; 80053; 80061; 83735; 84443; 84484; 85025; 93005; 93306; 93454; 99152; 99153; 99285; J7030; A4216; C1769; C1894; C8929; Q9967

== ENCOUNTER → 2022-02-24 | Outpatient (CLI) | payer MEDICARE, SELFPAY ==
[2022-02-24 17:55] LABS: Absolute Lymphocyte Count 1.93 X10^3/uL (0.83-4.51); Absolute Neutrophil Count 4.5 X10^3/uL (2.0-7.7); Basophil# 0.04 X10^3/uL; Basophil% 0.6 % (0-1); Eosinophil# 0.15 X10^3/uL; Eosinophils% 2.1 % (0-5); Hematocrit 35.9 % (40-54); Hemoglobin 11.1 g/dL (13.0-16.5); Lymphocyte # 1.93 X10^3/ul (0.83-4.51); Lymphocyte % 26.5 % (19-41); Mean Corp Hgb Conc 30.9 g/dL (32-36); Mean Corpuscular Hgb 27.7 pg (27.0-32.0); Mean Corpuscular Volume 89.5 fL (80-94); Monocyte# 0.67 X10^3/uL; Monocyte% 9.2 % (0-10); NRBC Flagged by Analyzer 0 % (0-5); Neutrophil # 4.46 X10^3/uL (2.7-7.7); Neutrophil % 61.3 % (47-70); Platelet Count 148 K/mm3 (150-450); RBC Distribution Width CV 17.2 % (11.6-14.6); RBC Distribution Width SD 56.1 fl (35.1-43.9); Red Blood Count 4.01 M/mm3 (4.6-6.2); White Blood Count 7.3 K/mm3 (4.4-11.0)
[2022-02-24 18:21] LABS: ALB/GLOB Ratio 1.4 RATIO (0.9-2.4); AST(SGOT) 13 U/L (15-37); Alanine Aminotransfer ALT/SGPT 17 U/L (16-61); Albumin, Serum 3.7 g/dL (3.2-5.0); Alkaline Phosphatase 84 U/L (45-117); Anion Gap 8 (5-15); BUN 14 mg/dL (7-18); BUN/Creat Ratio 12.8 RATIO (10-20); Calcium,Total 8.3 mg/dL (8.5-10.1); Chloride 104 mmol/L (98-107); Creatinine, Serum 1.09 mg/dL (0.70-1.30); EST Glomerular Filtration Rate 70 mL/min (>60); Est Glom Filt Rate - Afr Amer 85 mL/min (>60); Globulin 2.7 g/dL (2.2-4.2); Glucose 104 mg/dL (74-106); Potassium 3.6 mmol/L (3.5-5.1); Protein, Total 6.4 g/dL (6.4-8.2); Sodium Level 142 mmol/L (136-145)
== END | disposition home or self-care (01) ==
LOC: MTLAB 14:36
PROVIDERS: Referring Provider Internal Medicine Rheumatology; Visit Provider Internal Medicine Rheumatology
DX: M06.00 Rheumatoid arthritis without rheumatoid factor, unspecified site (principal); I11.0 Hypertensive heart disease with heart failure; I50.9 Heart failure, unspecified; M19.041 Primary osteoarthritis, right hand; M17.0 Bilateral primary osteoarthritis of knee; M18.0 Bilateral primary osteoarthritis of first carpometacarpal joints; M47.897 Other spondylosis, lumbosacral region; I25.10 Atherosclerotic heart disease of native coronary artery without angina pectoris; H35.30 Unspecified macular degeneration; N40.1 Benign prostatic hyperplasia with lower urinary tract symptoms; E78.5 Hyperlipidemia, unspecified; Z86.79 Personal history of other diseases of the circulatory system; Z79.899 Other long term (current) drug therapy
CPT/HCPCS: 36415; 80053; 85025

== ENCOUNTER → 2022-05-18 | Outpatient (CLI) | payer OTHER, SELFPAY ==
[2022-05-18 12:06] LABS: Absolute Lymphocyte Count 2.06 X10^3/uL (0.83-4.51); Absolute Neutrophil Count 5.9 X10^3/uL (2.0-7.7); Basophil# 0.06 X10^3/uL; Basophil% 0.6 % (0-1); Eosinophil# 0.12 X10^3/uL; Eosinophils% 1.3 % (0-5); Hematocrit 38.9 % (40-54); Hemoglobin 12.2 g/dL (13.0-16.5); Lymphocyte # 2.06 X10^3/ul (0.83-4.51); Mean Corp Hgb Conc 31.4 g/dL (32-36); Mean Corpuscular Hgb 29.1 pg (27.0-32.0); Mean Corpuscular Volume 92.8 fL (80-94); Mean Platelet Vol. 12.3 fl (6.2-12.0); Monocyte# 1.19 X10^3/uL; Monocyte% 12.7 % (0-10); NRBC Flagged by Analyzer 0 % (0-5); Neutrophil # 5.91 X10^3/uL (2.7-7.7); Platelet Count 179 K/mm3 (150-450); RBC Distribution Width CV 17.2 % (11.6-14.6); RBC Distribution Width SD 58.4 fl (35.1-43.9); Red Blood Count 4.19 M/mm3 (4.6-6.2); White Blood Count 9.4 K/mm3 (4.4-11.0)
[2022-05-18 12:27] LABS: ALB/GLOB Ratio 1.1 RATIO (0.9-2.4); AST(SGOT) 17 U/L (15-37); Alanine Aminotransfer ALT/SGPT 23 U/L (16-61); Albumin, Serum 3.6 g/dL (3.2-5.0); Alkaline Phosphatase 74 U/L (45-117); Anion Gap 8 (5-15); BUN 14 mg/dL (7-18); BUN/Creat Ratio 12.2 RATIO (10-20); Calcium,Total 8.9 mg/dL (8.5-10.1); Chloride 103 mmol/L (98-107); Creatinine, Serum 1.15 mg/dL (0.70-1.30); EST Glomerular Filtration Rate 66 mL/min (>60); Est Glom Filt Rate - Afr Amer 80 mL/min (>60); Globulin 3.2 g/dL (2.2-4.2); Glucose 107 mg/dL (74-106); Potassium 3.3 mmol/L (3.5-5.1); Protein, Total 6.8 g/dL (6.4-8.2); Sodium Level 141 mmol/L (136-145)
== END | disposition home or self-care (01) ==
LOC: MTLAB 10:13
PROVIDERS: Referring Provider Internal Medicine Rheumatology; Visit Provider Internal Medicine Rheumatology
DX: M06.00 Rheumatoid arthritis without rheumatoid factor, unspecified site (principal); Z79.899 Other long term (current) drug therapy
CPT/HCPCS: 36415; 80053; 85025

== ENCOUNTER → 2022-08-23 | Outpatient (CLI) | payer MEDICARE, SELFPAY ==
[2022-08-23 15:43] LABS: Absolute Lymphocyte Count 0.98 X10^3/uL (0.83-4.51); Absolute Neutrophil Count 7.9 X10^3/uL (2.0-7.7); Basophil# 0.06 X10^3/uL; Basophil% 0.6 % (0-1); Eosinophil# 0.06 X10^3/uL; Eosinophils% 0.6 % (0-5); Hematocrit 34.4 % (40-54); Hemoglobin 10.9 g/dL (13.0-16.5); Lymphocyte # 0.98 X10^3/ul (0.83-4.51); Lymphocyte % 9.9 % (19-41); Mean Corp Hgb Conc 31.7 g/dL (32-36); Mean Corpuscular Hgb 29.9 pg (27.0-32.0); Mean Corpuscular Volume 94.5 fL (80-94); Mean Platelet Vol. 11.6 fl (6.2-12.0); Monocyte# 0.75 X10^3/uL; Monocyte% 7.6 % (0-10); NRBC Flagged by Analyzer 0 % (0-5); Neutrophil # 7.94 X10^3/uL (2.7-7.7); Neutrophil % 80.6 % (47-70); Platelet Count 196 K/mm3 (150-450); RBC Distribution Width CV 15.9 % (11.6-14.6); RBC Distribution Width SD 54.5 fl (35.1-43.9); Red Blood Count 3.64 M/mm3 (4.6-6.2); White Blood Count 9.9 K/mm3 (4.4-11.0)
[2022-08-23 16:11] LABS: ALB/GLOB Ratio 1.1 RATIO (0.9-2.4); AST(SGOT) 15 U/L (15-37); Alanine Aminotransfer ALT/SGPT 22 U/L (16-61); Albumin, Serum 3.4 g/dL (3.2-5.0); Alkaline Phosphatase 77 U/L (45-117); Anion Gap 7 (5-15); BUN 19 mg/dL (7-18); BUN/Creat Ratio 15.8 RATIO (10-20); Calcium,Total 8.6 mg/dL (8.5-10.1); Chloride 102 mmol/L (98-107); EST Glomerular Filtration Rate 63 mL/min (>60); Est Glom Filt Rate - Afr Amer 76 mL/min (>60); Globulin 3.1 g/dL (2.2-4.2); Glucose 123 mg/dL (74-106); Potassium 4.1 mmol/L (3.5-5.1); Protein, Total 6.5 g/dL (6.4-8.2); Sodium Level 139 mmol/L (136-145)
== END | disposition home or self-care (01) ==
PROVIDERS: Referring Provider Internal Medicine Rheumatology; Visit Provider Internal Medicine Rheumatology
DX: M06.00 Rheumatoid arthritis without rheumatoid factor, unspecified site (principal); Z79.899 Other long term (current) drug therapy
CPT/HCPCS: 36415; 80053; 85025

== ENCOUNTER → 2022-08-31 | Outpatient (CLI) | payer OTHER, MEDICARE, SELFPAY ==
[2022-08-31 12:49] LABS: BNP,B-Type NATRIURETIC PEPTIDE 282.1 pg/mL (0-100)
[2022-08-31 12:51] LABS: Anion Gap 7 (5-15); BUN 20 mg/dL (7-18); BUN/Creat Ratio 15.2 RATIO (10-20); Calcium,Total 8.8 mg/dL (8.5-10.1); Chloride 103 mmol/L (98-107); Creatinine, Serum 1.32 mg/dL (0.70-1.30); EST Glomerular Filtration Rate 56 mL/min (>60); Est Glom Filt Rate - Afr Amer 68 mL/min (>60); Glucose 102 mg/dL (74-106); Potassium 3.1 mmol/L (3.5-5.1); Sodium Level 141 mmol/L (136-145)
== END | disposition home or self-care (01) ==
LOC: LAB 11:55
PROVIDERS: Referring Provider Nurse Practitioner Family; Visit Provider Nurse Practitioner Family
DX: I50.32 Chronic diastolic (congestive) heart failure (principal); Z95.5 Presence of coronary angioplasty implant and graft
CPT/HCPCS: 36415; 80048; 83880

== ENCOUNTER → 2022-11-25 | Outpatient (CLI) | payer OTHER, SELFPAY ==
[2022-11-25 12:20] LABS: Absolute Lymphocyte Count 1.84 X10^3/uL (0.83-4.51); Absolute Neutrophil Count 5.3 X10^3/uL (2.0-7.7); Basophil# 0.06 X10^3/uL; Basophil% 0.7 % (0-1); Eosinophil# 0.17 X10^3/uL; Hemoglobin 11.5 g/dL (13.0-16.5); Lymphocyte # 1.84 X10^3/ul (0.83-4.51); Lymphocyte % 21.9 % (19-41); Mean Corp Hgb Conc 30.3 g/dL (32-36); Mean Corpuscular Hgb 28.5 pg (27.0-32.0); Mean Corpuscular Volume 94.3 fL (80-94); Mean Platelet Vol. 11.9 fl (6.2-12.0); Monocyte% 11.9 % (0-10); NRBC Flagged by Analyzer 0 % (0-5); Neutrophil # 5.28 X10^3/uL (2.7-7.7); Neutrophil % 62.8 % (47-70); Platelet Count 220 K/mm3 (150-450); RBC Distribution Width CV 16.3 % (11.6-14.6); Red Blood Count 4.03 M/mm3 (4.6-6.2); White Blood Count 8.4 K/mm3 (4.4-11.0)
[2022-11-25 12:56] LABS: AST(SGOT) 15 U/L (15-37); Alanine Aminotransfer ALT/SGPT 18 U/L (16-61); Albumin, Serum 3.5 g/dL (3.2-5.0); Alkaline Phosphatase 78 U/L (45-117); Anion Gap 4 (5-15); BUN 15 mg/dL (7-18); BUN/Creat Ratio 13.9 RATIO (10-20); Calcium,Total 8.9 mg/dL (8.5-10.1); Chloride 103 mmol/L (98-107); Creatinine, Serum 1.08 mg/dL (0.70-1.30); EST Glomerular Filtration Rate 71 mL/min (>60); Est Glom Filt Rate - Afr Amer 86 mL/min (>60); Globulin 3.4 g/dL (2.2-4.2); Glucose 87 mg/dL (74-106); Protein, Total 6.9 g/dL (6.4-8.2); Sodium Level 138 mmol/L (136-145)
== END | disposition home or self-care (01) ==
LOC: MTLAB 10:53
PROVIDERS: Referring Provider Internal Medicine Rheumatology; Visit Provider Internal Medicine Rheumatology
DX: M06.00 Rheumatoid arthritis without rheumatoid factor, unspecified site (principal); Z79.899 Other long term (current) drug therapy
CPT/HCPCS: 36415; 80053; 85025

== ENCOUNTER 2023-02-09 07:20 | Emergency (ER) | payer OTHER, SELFPAY ==
[2023-02-09 07:21] VITALS: BP 146/81; PULSE 59; RESP 18; TEMP 36.5; O2SAT 99; BMI 31.8
[2023-02-09 07:25] VITALS: BP 125/63; PULSE 60; RESP 18; TEMP 37.3; O2SAT 95
--- NOTE | 2023-02-09 07:39 | EKG12_ITS ---
Test Reason : Blood Pressure : / mmHG Vent. Rate : 060 BPM Atrial Rate : 070 BPM P-R Int : 000 ms QRS Dur : 154 ms QT Int : 460 ms P-R-T Axes : 000 051 058 degrees QTc Int : 460 ms Ventricular-paced rhythm Abnormal ECG Confirmed by JOSE MANUEL ORO, JAX ([id number]), magazine editor BRAVO PADILLA ([id number]) on 02/14/2023 8:41:54 AM Referred By: Confirmed By:KIRIT RICHARD MD
--- NOTE | 2023-02-09 07:40 | EX.ED.DYSGE1 ---
HPI History of Present Illness Chief Complaint: General Illness Informant: patient and family ([id number]) Narrative Narrative: 77-year-old male with a history of coronary artery disease and atrial fibrillation presenting to the emergency room with cough. Patient states yesterday he has developed an intermittent cough that at times has been persistent. He notes that is occasionally productive of yellow sputum and sometimes clear. He states he is almost had some posttussive emesis. He notes some upper abdominal soreness when he coughs. He feels at times particularly with coughing that he feels his heart racing and wonders if his A-fib is acting up. He denies any leg swelling. No fevers vomiting diarrhea rhinorrhea or sore throat. No myalgias. He notes chronic thigh discomfort which she notes is due to a pinched nerve in his low back. He is on Eliquis. He follows locally with cardiology. He sees primary care through the ID at [facility] Medical History Atherosclerotic heart disease of [place] coronary artery without angina pectoris Chronic diastolic (congestive) heart failure Lightheadedness Longstanding persistent atrial fibrillation Multiple premature ventricular complexes NSTEMI (non-ST elevated myocardial infarction) (02/04/22) Obesity Tachy-cory syndrome Troponin I above reference range Unstable angina Home Medications cholecalciferol (vitamin D3) 50 mcg (2,000 unit) tablet 50 mcg PO DAILY 04/13/21 [History Last Taken 02/08/23] colchicine 0.6 mg tablet 1.2 mg PO PRN PRN gout 02/04/22 [History Last Taken Unknown] ferrous gluconate 324 mg (36 mg iron) tablet 324 mg PO DAILY 02/04/22 [History Last Taken 02/08/23] folic acid 1 mg tablet 2 mg PO DAILY 02/04/22 [History Last Taken 02/08/23] methotrexate sodium 2.5 mg tablet 2.5 mg PO QWEEK 02/04/22 [History Last Taken 02/05/23] apixaban 5 mg tablet 5 mg PO BID blood [facility] 05/14/22 [Rx Last Taken 02/08/23] doxazosin 1 mg tablet 1 mg PO DAILY [facility] 05/14/22 [Rx Last Taken 02/08/23] furosemide 40 mg tablet 40 mg PO DAILY [facility] 05/14/22 [Rx Last Taken 02/08/23] pantoprazole 40 mg tablet,delayed release 40 mg PO DAILY [facility] tabs 05/14/22 [Rx Last Taken 02/08/23] rosuvastatin 20 mg tablet 20 mg PO DAILY [facility] 05/14/22 [Rx Last Taken 02/08/23] metoprolol succinate 50 mg tablet,extended release 24 hr 50 mg PO BID FAX [facility] tabs 05/27/22 [Rx Last Taken 02/08/23] allopurinol 100 mg tablet 100 mg PO DAILY 08/31/22 [History Last Taken 02/08/23] aspirin 81 mg tablet,delayed release (Adult Low Dose Aspirin) 81 mg PO DAILY 08/31/22 [History Last Taken 02/08/23] gabapentin 100 mg capsule 100 mg PO BID 08/31/22 [History Last Taken 02/08/23] prednisone 10 mg tablet 10 mg PO DAILY PRN pain 08/31/22 [History Last Taken Unknown] potassium chloride 10 mEq tablet,extended release 10 meq PO DAILY #30 tabs 09/02/22 [Rx Last Taken 02/08/23] Allergy/AdvReac Type Severity Reaction Status Date / Time lisinopril Allergy Angioedema Verified 02/09/23 07:21 Penicillins [PCN] Allergy Hives Verified 02/09/23 07:21 Family History Other CVA (cerebral vascular accident) Hypertension Surgical History History of arthroscopic knee surgery History of coronary artery stent placement (09/22/20) History of left heart catheterization (02/05/22) History of permanent cardiac pacemaker placement (12/15/20) Social History Smoking Status: Former smoker ROS ROS ED Constitutional Constitutional ED: Denies chills, fever(s) or weight loss Eyes Eyes: Denies change in vision or diplopia ENT ENT ED: Denies ear pain, rhinorrhea or sore throat Cardiovascular Cardiovascular: Reports palpitations and racing heartbeat; Denies chest pain or orthopnea Respiratory/Chest Respiratory/Chest: Reports cough and sputum; Denies dyspnea or orthopnea Gastrointestinal Gastrointestinal: Reports abdominal pain; Denies diarrhea, nausea or vomiting Genitourinary Genitourinary ED: Denies dysuria, hematuria or urinary frequency Musculoskeletal Musculoskeletal: Denies arthralgias or myalgias Integumentary Denies abscess or rash Neurologic Neurologic: Denies headache(s) or weakness Psychiatric Psychiatric: Denies anxiety, depression, suicidal ideation or suicidal thoughts Endocrine Endocrinology: Denies polydipsia, polyphagia or polyuria Allergic/Immunologic Allergic/Immunologic ED: Denies mouth swelling, tongue swelling or urticaria EXAM Physical Exam Const Vital Signs: 02/09/23 07:21 02/09/23 07:25 02/09/23 08:06 Temperature 97.7 F L 99.1 F Temperature Source Temporal Temporal Pulse Rate 59 L 60 Respiratory Rate 18 18 Respiratory Effort Normal Non-Labored Respiratory Pattern Normal Blood Pressure 146/81 H 125/63 H Blood Pressure Mean 102 83 Pulse Ox 99 95 Oxygen Delivery Method Room Air Room Air Positive well nourished, well developed and obese General Appearance ED: well developed Nutritional Appearance: obese HEENT Reports normocephalic, head/scalp atraumatic and moist mucous membranes Eyes PERRL and EOMs intact bilaterally Neck no lymphadenopathy, supple and no JVD Resp normal respiratory effort and clear to auscultation bilaterally Cardio regular rhythm and no murmurs Rhythm: abnormal rhythm irregularly irregular GI non-tender GI Narrative: There is a ventral hernia noted that is nontender and self reduces Inspection: Negative for abdominal distention Auscultation: normoactive bowel sounds Palpation: soft; Negative for tender, guarding or rebound tenderness present Back/Spine no CVA tenderness and normal ROM Extremity normal to inspection General Extremety ED: Negative for edema General Extremity: Negative for edema Neuro oriented x3 and CN's II-XII intact bilaterally Sensorium / Orientation: alert Motor Exam: strength 5/5 throughout Psych mental status grossly normal Mood & Affect: Negative for depressed or tearful Skin no rashes or lesions noted and no wounds MDM MDM MDM Narrative Medical decision making narrative: My independent interpretation of the chest x-ray is no acute process. It appears grossly unchanged from chest x-ray dated 04 February 2022 Patient's COVID-19 test came back positive. White count 6.6 hemoglobin 11.6 which is chronic for him. Troponin 341. His EKG is a ventricular paced rhythm. He has had elevations in his troponin in the past that did not correlate with interventional heart on cath. I do not suspect that he has ACS at this time. I do not suspect pulmonary embolism. Patient is not hypoxic and he does not have any infiltrates. He clinically appears well except for his cough. I think he has a mild case of COVID-19. I would recommend following up with primary care as needed return if worsening or concerns. We did speak about some of the novel COVID-19 medications like Paxlovid. Given that he has a mild case he and his [id number] would like to wait on any medications. Lab Data Attestation: I reviewed the patient's lab results. Labs: Laboratory Results - last 24 hr 02/09/23 07:53 WBC 6.6 RBC 3.91 L Hgb 11.6 L Hct 37.8 L MCV 96.7 H MCH 29.7 MCHC 30.7 L RDW Std Deviation 55.4 H RDW Coeff of Misti 15.7 H Plt Count 157 MPV 12.0 Immature Gran % (Auto) 0.600 Neut % (Auto) 74.2 H Lymph % (Auto) 11.5 L [place] % (Auto) 12.4 H Eos % (Auto) 0.8 Baso % (Auto) 0.5 Absolute Neuts (auto) 4.9 Absolute Lymphs (auto) 0.76 L Nucleated RBC % 0 Sodium 136 Potassium 4.0 Chloride 104 Carbon Dioxide 29.0 Anion Gap 3 L BUN 14 Creatinine 1.31 H Estim Creat Clear Calc 58.23 Est GFR (MDRD) Af Amer 69 Est GFR (MDRD) Non-Af 57 L BUN/Creatinine Ratio 10.7 Glucose 116 H Calcium 8.9 Troponin I High Sens 341 H* Radiography Diagnostic Testing: Clinical Impression(s) from Imaging Studies Chest X-Ray 02/09/23 08:05 IMPRESSION: Hyperinflation. The lungs are clear. Electronically Signed: Thomas Brooks MD at 8:42 EST , EKG Initial EKG: Attestation: I personally reviewed and interpreted this EKG as follows: Comments: Ventricular paced rhythm with a ventricular rate of 60 bpm. Apparent underlying atrial fibrillation rhythm Discharge Plan Triage Chief Complaint: General Illness ED Provider: Jimbo Aquino Dx/Rx/DC Orders Clinical Impression: COVID-19, Longstanding persistent atrial fibrillation, Rapid palpitations, Chronic diastolic (congestive) heart failure Instructions: Coronavirus Disease 2019 (COVID-19): Caring for Yourself or Others Prescriptions: No Action aspirin [Adult Low Dose Aspirin] 81 mg tablet,delayed release (DR/EC) 81 mg PO DAILY gabapentin 100 mg capsule 100 mg PO BID cholecalciferol (vitamin D3) 50 mcg (2,000 unit) Tablet 50 mcg PO DAILY allopurinol 100 mg tablet 100 mg PO DAILY methotrexate sodium 2.5 mg Tablet 2.5 mg PO QWEEK Rx Instructions: takes on saturdays folic acid 1 mg tablet 2 mg PO DAILY Patient Comments: TAKE 2 TABLETS BY MOUTH EVERY DAY colchicine 0.6 mg tablet 1.2 mg PO PRN PRN (Reason: gout) Patient Comments: TAKE TWO TABLETS BY MOUTH TO START, THEN ONE TABLET ONE HOUR LATER FOR GOUT FLARE UP Rx Instructions: Take two 0.6 tabs one time, then take one tablet one hour later for acute fare up ferrous gluconate 324 mg (36 mg iron) Tablet 324 mg PO DAILY prednisone 10 mg tablet 10 mg PO DAILY PRN (Reason: pain ) Patient Comments: TAKE 1 TABLET BY MOUTH EVERY DAY NEEDED apixaban 5 mg tablet 5 mg PO BID Qty: 90 3RF doxazosin 1 mg tablet 1 mg PO DAILY Qty: 90 3RF furosemide 40 mg tablet 40 mg PO DAILY Qty: 90 3RF rosuvastatin 20 mg tablet 20 mg PO DAILY Qty: 90 3RF pantoprazole 40 mg tablet,delayed release (DR/EC) 40 mg PO DAILY Qty: 180 3RF metoprolol succinate 50 mg tablet extended release 24 hr 50 mg PO BID Qty: 180 3RF potassium chloride 10 mEq tablet extended release 10 meq PO DAILY Qty: 30 11RF Hold Instructions: MD Ordered [facility] Provider[facility] [[facility] Provider] - As Needed Disposition Disposition: Home, Self Care
[2023-02-09 08:00] LABS: Absolute Lymphocyte Count 0.76 X10^3/uL (0.83-4.51); Absolute Neutrophil Count 4.9 X10^3/uL (2.0-7.7); Basophil# 0.03 X10^3/uL; Basophil% 0.5 % (0-1); Eosinophil# 0.05 X10^3/uL; Eosinophils% 0.8 % (0-5); Hematocrit 37.8 % (40-54); Hemoglobin 11.6 g/dL (13.0-16.5); Lymphocyte # 0.76 X10^3/ul (0.83-4.51); Lymphocyte % 11.5 % (19-41); Mean Corp Hgb Conc 30.7 g/dL (32-36); Mean Corpuscular Hgb 29.7 pg (27.0-32.0); Mean Corpuscular Volume 96.7 fL (80-94); Monocyte# 0.82 X10^3/uL; Monocyte% 12.4 % (0-10); NRBC Flagged by Analyzer 0 % (0-5); Neutrophil # 4.91 X10^3/uL (2.7-7.7); Neutrophil % 74.2 % (47-70); Platelet Count 157 K/mm3 (150-450); RBC Distribution Width CV 15.7 % (11.6-14.6); RBC Distribution Width SD 55.4 fl (35.1-43.9); Red Blood Count 3.91 M/mm3 (4.6-6.2); White Blood Count 6.6 K/mm3 (4.4-11.0)
--- NOTE | 2023-02-09 08:05 | RAD_ITS ---
STUDY: X-RAY CHEST REASON FOR EXAM: Male, 77 years old. Cough TECHNIQUE: Single AP portable view of the chest. COMPARISON: Comparison is made with prior study dated February 04, 2022. FINDINGS: EKG electrodes are seen. Hyperinflation. The lungs are clear. There is no demonstrated pleural abnormality. Normal size heart. A left-sided dual-chamber pacemaker is seen. Normal mediastinum and rosendo. Normal visualized pulmonary arteries. There is atherosclerotic tortuosity of the aortic arch and descending thoracic aorta. There are degenerative changes of the visualized thoracic spine. Normal visualized ribs, clavicles, and shoulders. There is no demonstrated abnormality of the visualized soft tissue structures of the upper abdomen. RAD/Chest 1 View (Portable) IMPRESSION: Hyperinflation. The lungs are clear. Electronically Signed: Thomas Brooks MD at 8:42 EST ,
[2023-02-09 08:19] LABS: Anion Gap 3 (5-15); BUN 14 mg/dL (7-18); BUN/Creat Ratio 10.7 RATIO (10-20); Calcium,Total 8.9 mg/dL (8.5-10.1); Chloride 104 mmol/L (98-107); Creatinine, Serum 1.31 mg/dL (0.70-1.30); EST Glomerular Filtration Rate 57 mL/min (>60); Est Glom Filt Rate - Afr Amer 69 mL/min (>60); Estimated Creatinine Clearance 58.23 ml/min; Glucose 116 mg/dL (74-106); Sodium Level 136 mmol/L (136-145); Troponin-I HS 341 pg/mL (3.0-78.0)
[2023-02-09 09:23] VITALS: BP 132/78; PULSE 60; RESP 16; O2SAT 98
== END 2023-02-09 09:23 | disposition home or self-care (01) ==
PROVIDERS: Emergency Provider Emergency Medicine; Visit Provider Emergency Medicine
DX: U07.1 COVID-19 (principal); I50.32 Chronic diastolic (congestive) heart failure; I48.11 Longstanding persistent atrial fibrillation; I25.10 Atherosclerotic heart disease of native coronary artery without angina pectoris; R00.2 Palpitations; I25.2 Old myocardial infarction; Z87.891 Personal history of nicotine dependence; Z79.01 Long term (current) use of anticoagulants; Z79.82 Long term (current) use of aspirin; Z79.899 Other long term (current) drug therapy; Z95.0 Presence of cardiac pacemaker; Z95.5 Presence of coronary angioplasty implant and graft
CPT/HCPCS: 71045; 80048; 84484; 85025; 87811; 93005; 99284; A4216

== ENCOUNTER 2023-02-17 09:10 | Inpatient (IN) | payer OTHER, SELFPAY ==
[2023-02-17] VITALS (7 sets, daily range): BP systolic 147–157; BP diastolic 73–75; PULSE 59–63; RESP 14–16; TEMP 36.6–37; O2SAT 96–100; BMI 31.1; BMI 30.7
--- NOTE | 2023-02-17 09:33 | RAD_ITS ---
INDICATION: chest pain EXAMINATION/TECHNIQUE: X-RAY - XR Chest 2 Views COMPARISON: Prior study dated: 02/09/2023. FINDINGS: LINES/DEVICES: Left-sided dual-chamber cardiac pacer device in stable position. LUNGS: No consolidation, edema or effusion. No pneumothorax. MEDIASTINUM AND CARDIOVASCULAR STRUCTURES: Cardiac silhouette not enlarged. Central airways and mediastinal contour are unremarkable. BONES AND SOFT TISSUES: Unremarkable. RAD/Chest PA and Lateral IMPRESSION: No radiographic evidence of acute cardiopulmonary disease. Electronically Signed: Eddie Gauthier MD at 10:59 EST ,
--- NOTE | 2023-02-17 09:33 | EKG12_ITS ---
Test Reason : ANXIETY Blood Pressure : / mmHG Vent. Rate : 060 BPM Atrial Rate : 375 BPM P-R Int : 000 ms QRS Dur : 168 ms QT Int : 478 ms P-R-T Axes : 000 087 -43 degrees QTc Int : 478 ms Ventricular-paced rhythm Abnormal ECG Underlying Afib Confirmed by JONATHON ORO, PIEDAD ([id number]), photographic editor SANDY RAY ([id number]) on 02/23/2023 11:57:37 AM Referred By: Confirmed By:PIEDAD HOLT MD
--- NOTE | 2023-02-17 09:38 | EX.ED.DYSGE1 ---
HPI History of Present Illness Chief Complaint: Anxiety Informant: patient Narrative Narrative: Presenting with restlessness and unable to sit still intermittently over last few days worsening this morning. He know he was seen 8 days ago with cough found to have COVID. States cough is improving. No tobacco history. History of A-fib with a pacemaker on Eliquis. History of coronary disease with stents in the past. He is on Plavix. He took his Plavix this morning. He denies any discrete chest pain symptoms or any exertional dyspnea or tightness. No radicular pain numbness arms neck or back. Further discussion with the patient, similar symptoms a year ago when he ended up with heart cath in the hospital. Hypertension, hyperlipidemia denies history of diabetes. Prior similar symptoms: Yes PFSH [facility] Medical History Atherosclerotic heart disease of [place] coronary artery without angina pectoris Chronic diastolic (congestive) heart failure Lightheadedness Longstanding persistent atrial fibrillation Multiple premature ventricular complexes NSTEMI (non-ST elevated myocardial infarction) (02/04/22) Obesity Tachy-cory syndrome Troponin I above reference range Unstable angina Home Medications cholecalciferol (vitamin D3) 50 mcg (2,000 unit) tablet 50 mcg PO DAILY SUPPLEMENT 04/13/21 [History Last Taken 02/17/23] colchicine 0.6 mg tablet 1.2 mg PO DAILY PRN gout 02/04/22 [History Last Taken 02/17/23] ferrous gluconate 324 mg (36 mg iron) tablet 324 mg PO DAILY SUPPLEMENT 02/04/22 [History Last Taken 02/17/23] folic acid 1 mg tablet 1 mg PO BID SUPPLEMENT 02/04/22 [History Last Taken 02/17/23] methotrexate sodium 2.5 mg tablet 15 mg PO SA arthritis 02/04/22 [History Last Taken 02/12/23] apixaban 5 mg tablet 5 mg PO BID BLOOD THINNER #90 tabs 05/14/22 [Rx Last Taken 02/17/23] doxazosin 1 mg tablet 1 mg PO DAILY BLOOD PRESSURE #90 tabs 05/14/22 [Rx Last Taken 02/17/23] furosemide 40 mg tablet 40 mg PO DAILY FLUID #90 tabs 05/14/22 [Rx Last Taken 02/17/23] pantoprazole 40 mg tablet,delayed release 40 mg PO DAILY ACID REFLUX #180 tabs 05/14/22 [Rx Last Taken 02/17/23] rosuvastatin 20 mg tablet 20 mg PO DAILY CHOLESTEROL #90 tabs 05/14/22 [Rx Last Taken 02/17/23] metoprolol succinate 50 mg tablet,extended release 24 hr 50 mg PO BID BLOOD PRESSURE #180 tabs 05/27/22 [Rx Last Taken 02/17/23] allopurinol 100 mg tablet 100 mg PO DAILY GOUT 08/31/22 [History Last Taken 02/17/23] aspirin 81 mg tablet,delayed release (Adult Low Dose Aspirin) 81 mg PO DAILY HEART HEALTH 08/31/22 [History Last Taken 02/17/23] gabapentin 100 mg capsule 100 mg PO BID NEUROPATHY 08/31/22 [History Last Taken 02/17/23] prednisone 10 mg tablet 10 mg PO DAILY PRN pain 08/31/22 [History Last Taken Unknown] potassium chloride 10 mEq tablet,extended release 10 meq PO DAILY #30 tabs 09/02/22 [Rx Last Taken 02/17/23] Allergy/AdvReac Type Severity Reaction Status Date / Time lisinopril Allergy Angioedema Verified 02/17/23 09:11 Penicillins [PCN] Allergy Hives Verified 02/17/23 09:11 Family History Other CVA (cerebral vascular accident) Hypertension Surgical History History of arthroscopic knee surgery History of coronary artery stent placement (09/22/20) History of left heart catheterization (02/05/22) History of permanent cardiac pacemaker placement (12/15/20) Social History Smoking Status: Former smoker ROS ROS ED Constitutional Constitutional ED: Denies chills, fever(s) or sweats Eyes Eyes: Denies change in vision ENT ENT ED: Denies dysphagia or sore throat Cardiovascular Cardiovascular: Denies chest pain, leg edema, palpitations or racing heartbeat Respiratory/Chest Respiratory/Chest: Denies cough, dyspnea or dyspnea on exertion Gastrointestinal Gastrointestinal: Denies abdominal pain, diarrhea, nausea or vomiting Genitourinary Genitourinary ED: Denies dysuria, hematuria or urinary frequency Musculoskeletal Musculoskeletal: Denies back pain, extremity pain or neck pain Integumentary Denies rash or wounds Neurologic Neurologic: Reports other Details: Restlessness ; Denies headache(s), paresthesias or weakness EXAM Physical Exam Const Vital Signs: 02/17/23 09:11 02/17/23 10:10 02/17/23 13:44 Temperature 98.1 F Temperature Source Temporal Pulse Rate 59 L 63 Respiratory Rate 14 16 Respiratory Effort Respiratory Depth Respiratory Pattern Blood Pressure 153/75 H 157/73 H Blood Pressure [BP] Blood Pressure Mean 101 101 Blood Pressure Mean [BP] Blood Pressure Source [BP] Blood Pressure Position [BP] Blood Pressure Location [BP] Pulse Ox 100 97 96 Oxygen Delivery Method Room Air Room Air 02/17/23 13:42 02/17/23 14:00 Temperature 98.6 F Temperature Source Tympanic Pulse Rate 60 Respiratory Rate 14 Respiratory Effort Normal Respiratory Depth Normal Respiratory Pattern Normal Blood Pressure Blood Pressure [BP] 147/75 H Blood Pressure Mean Blood Pressure Mean [BP] 99 Blood Pressure Source [BP] Monitor Blood Pressure Position [BP] Semi-Fowlers Blood Pressure Location [BP] Left Arm Pulse Ox 100 100 Oxygen Delivery Method Room Air Room Air Positive well nourished and well developed Constitutional Narrative: Nontoxic General Appearance ED: well developed and NAD HEENT Reports moist mucous membranes normocephalic and atraumatic Eyes PERRL, EOMs intact bilaterally and conjunctivae normal General Eye ED: Yes normal appearance of both eyes Neck no lymphadenopathy and supple General: Negative for tenderness Chest Wall inspection of chest normal and palpation of chest normal Chest: Negative for tenderness Resp normal respiratory effort and normal air movement Effort and Inspection: symmetric chest movement; Negative for respiratory distress Cardio regular rate, regular rhythm and no murmurs Peripheral Pulses: pulses 2+ throughout GI normal to inspection, nondistended, normoactive bowel sounds and non-tender Palpation: Negative for guarding or rebound tenderness present Back/Spine no CVA tenderness and no thoracic nor lumbar tenderness Extremity normal to inspection General Extremety ED: Negative for edema or tenderness General Extremity: Negative for edema Neuro oriented x3 and no sensory deficits noted Sensorium / Orientation: awake and alert Skin no rashes or lesions noted and no wounds MDM MDM MDM Narrative Medical decision making narrative: Interventions / MDM: Differential diagnosis: Diagnosis considered but do not suspect: N/A My EKG interpretation: Ventricular paced at 60, 4:1 atrial flutter, T wave inversions inferior lateral leads. T wave inversions are new compared to 8 days ago. Imaging independently reviewed and interpreted by myself: Chest x-ray: No acute process. CTA chest abdomen pelvis: No dissection. External documents reviewed: Follow-up cardiology office visit 02/2022. He underwent a cardiac catheterization 02/08/2022 which demonstrated stents which were patent. His left main was normal his left anterior descending artery demonstrated patency of his mid LAD stent with a small D2 branch. The rest of the LAD had minimal atherosclerosis, the circumflex artery was a large vessel which was dominant the second OM 2 had a proximal 80% stenosis in the right coronary artery had a mid 40 to 50% stenosis. Medical therapy was recommended. Troponin was 433 at that time. ED visit from 8 days ago with COVID-positive. Troponin 341, no chest symptoms or any of his current symptoms at that time. Test considered but not ordered:N/A ED course: Patient presenting for anxiety, however symptoms similar to when he had his heart cath a year ago. EKG paced however new T wave inversions were noted. Troponin checked up to 389 from the 341 8 days ago. Atypical symptoms with restlessness, sent for CTA chest abdomen pelvis to rule out dissection. Results were negative. Discussed with hospitalist Dr. Clay for admission to PCU. Repeat troponin 1 and 1 down to 385 from 389. I did speak with grounds foreman Dr. Elena to see the patient as a consult. Patient and family updated. Re-evaluation: stable Disposition discussed with patient/family/significant other: Patient Case discussed with consulting clinician: Hospitalist, grounds foreman This note was generated with [employer] dictation software. It may contain incorrect words, spelling, and punctuation that were not noted in checking the note before signing. Lab Data Attestation: I reviewed the patient's lab results. Labs: Laboratory Results - last 24 hr 02/17/23 02/17/23 10:08 12:19 WBC 8.4 RBC 3.77 L Hgb 11.0 L Hct 34.3 L MCV 91.0 MCH 29.2 MCHC 32.1 RDW Std Deviation 49.5 H RDW Coeff of Misti 15.0 H Plt Count 218 MPV 10.7 Immature Gran % (Auto) 0.600 Neut % (Auto) 81.4 H Lymph % (Auto) 12.1 L Collin % (Auto) 5.1 Eos % (Auto) 0.6 Baso % (Auto) 0.2 Absolute Neuts (auto) 6.9 Absolute Lymphs (auto) 1.02 Nucleated RBC % 0 PT 16.6 H INR 1.3 APTT 43.6 H Sodium 139 Potassium 3.5 Chloride 102 Carbon Dioxide 31.0 Anion Gap 6 BUN 16 Creatinine 1.14 Estim Creat Clear Calc 66.92 Est GFR (MDRD) Af Amer 81 Est GFR (MDRD) Non-Af 67 BUN/Creatinine Ratio 14.0 Glucose 121 H Calcium 9.1 Troponin I High Sens 389 H* 385 H* Radiography Diagnostic Testing: Clinical Impression(s) from Imaging Studies Chest X-Ray 02/17/23 09:33 IMPRESSION: No radiographic evidence of acute cardiopulmonary disease. Electronically Signed: Eddie Gauthier MD at 10:59 EST , Chest/Abdomen/Pelvis CTA 02/17/23 10:50 IMPRESSION: 1. No evidence of aortic dissection. 2. Suboptimal enhancement of the carotid arteries. No evidence of central pulmonary embolism. 3. No acute pulmonary infiltrate or pleural effusions. 4. No focal acute inflammatory process. 5. Hepatic steatosis. Electronically Signed: Eddie Gauthier MD at 11:37 EST , Critical Care Time Critical Care Time: Yes Critical care time (excluding procedures): 30-74 minutes, Discussing w/Patient &/or Family/Exit Booth Agent, Discussing w/Consultants, Arranging Admission or Transfer, Performing Direct Patient Care at Bedside and - (40 minutes) Discharge Plan Dx/Rx/DC Orders Clinical Impression: Non-ST elevation MS (NSTEMI), Longstanding persistent atrial fibrillation, Abnormal ECG Disposition Disposition: Acute Care Hospital [facility] Discharge Date/Time: 02/17/23 13:46
[2023-02-17 10:21] LABS: Absolute Lymphocyte Count 1.02 X10^3/uL (0.83-4.51); Absolute Neutrophil Count 6.9 X10^3/uL (2.0-7.7); Basophil# 0.02 X10^3/uL; Basophil% 0.2 % (0-1); Eosinophil# 0.05 X10^3/uL; Eosinophils% 0.6 % (0-5); Hematocrit 34.3 % (40-54); Lymphocyte # 1.02 X10^3/ul (0.83-4.51); Lymphocyte % 12.1 % (19-41); Mean Corp Hgb Conc 32.1 g/dL (32-36); Mean Corpuscular Hgb 29.2 pg (27.0-32.0); Mean Platelet Vol. 10.7 fl (6.2-12.0); Monocyte# 0.43 X10^3/uL; Monocyte% 5.1 % (0-10); NRBC Flagged by Analyzer 0 % (0-5); Neutrophil # 6.87 X10^3/uL (2.7-7.7); Neutrophil % 81.4 % (47-70); Platelet Count 218 K/mm3 (150-450); RBC Distribution Width SD 49.5 fl (35.1-43.9); Red Blood Count 3.77 M/mm3 (4.6-6.2); White Blood Count 8.4 K/mm3 (4.4-11.0)
[2023-02-17 10:50] LABS: Anion Gap 6 (5-15); BUN 16 mg/dL (7-18); Calcium,Total 9.1 mg/dL (8.5-10.1); Chloride 102 mmol/L (98-107); Creatinine, Serum 1.14 mg/dL (0.70-1.30); EST Glomerular Filtration Rate 67 mL/min (>60); Est Glom Filt Rate - Afr Amer 81 mL/min (>60); Estimated Creatinine Clearance 66.92 ml/min; Glucose 121 mg/dL (74-106); Potassium 3.5 mmol/L (3.5-5.1); Sodium Level 139 mmol/L (136-145); Troponin-I HS (w/2H Reflex) 389 pg/mL (3.0-78.0)
--- NOTE | 2023-02-17 10:50 | CT_ITS ---
INDICATION: chest pain -- elevated trop, r/o dissection EXAMINATION: CTA CHEST, ABDOMEN AND PELVIS WITH CONTRAST - TECHNIQUE: A CTA of the chest, abdomen, and pelvis is obtained with sagittal and coronal reconstructed MIP views. Three-dimensional surface rendered sequence of the thoracic and abdominal aorta was obtained. A radiation dose optimization technique was used for this scan. 100 mL of Iopamidol 370. Oral contrast: None. RADIATION DOSAGE (If Supplied By Facility): CTDIvol = ( 20.23 ) mGy, DLP = ( 1373.99 ) mGycm COMPARISON: No relevant prior comparison study available FINDINGS: CT CHEST: THORACIC AORTA: Atherosclerotic calcifications of the aortic arch. No evidence of aneurysm or dissection. ABDOMINAL AORTA: No aneurysm or dissection. No significant atheromatous disease. The iliac arteries are unremarkable. The celiac axis, SMA, bilateral renal arteries and EFRAIN are patent without evidence of stenosis. LUNGS: The lungs are well-expanded without acute infiltrate. Mild stranding/scarring in the left lower lobe. No effusions or pneumothorax. MEDIASTINUM: The thyroid gland is normal. No mediastinal or hilar adenopathy. HEART: Borderline cardiomegaly. No evidence of pericardial effusion. Coronary calcifications. Suboptimal enhancement of the pulmonary arteries. No definite central pulmonary embolism. CT ABDOMEN AND PELVIS: LIVER: Hepatic steatosis. No focal lesion is seen. GALLBLADDER: The CBD is normal. Normal gallbladder. SPLEEN: Normal. PANCREAS: No masses or inflammation. ADRENAL GLANDS: Normal. KIDNEYS AND URETERS: Thickening of the renal cortices. No hydronephrosis or nephrolithiasis. Anteriorly malrotated kidneys. 1.7 cm cyst in the left kidney appears to be simple and no further follow-up exam is needed. STOMACH: Grossly unremarkable but suboptimally distended. SMALL BOWEL: No abnormal distention of the small bowel. MESENTERY: No mesenteric inflammation. No ascites. COLON: No significant diverticulosis, masses or inflammation. The colon otherwise is normal. There is a large fatty ileocecal valve. APPENDIX: Not visualized. IVC: Normal. RETROPERITONEUM: No retroperitoneal lymphadenopathy. PELVIC STRUCTURES: Urinary bladder is not well distended. SOFT TISSUES ABDOMEN: The anterior abdominal wall is normal. SOFT TISSUE CHEST: The extrathoracic soft tissues are normal. BONES: Multilevel degenerative changes of the spine. CT/CTA Chst, Abd, Pel W and/or WO IMPRESSION: 1. No evidence of aortic dissection. 2. Suboptimal enhancement of the carotid arteries. No evidence of central pulmonary embolism. 3. No acute pulmonary infiltrate or pleural effusions. 4. No focal acute inflammatory process. 5. Hepatic steatosis. Electronically Signed: Eddie Gauthier MD at 11:37 EST ,
[2023-02-17 10:58] LABS: International Normalized Ratio 1.3; Prothrombin Time (Protime)PT. 16.6 SECONDS (11.7-14.9)
[2023-02-17 10:59] LABS: Partial Thromboplast Time 43.6 Seconds (24.1-36.2)
[2023-02-17] MEDS: 0.9% Normal Saline (500mL Bag) 500 ML 999 ML IV (11:05)
[2023-02-17] MEDS: Contrast Allergy Safety Check IV (12:04)
[2023-02-17 12:15] LABS: Reflex Troponin-HS? (from REC) Y
[2023-02-17 12:53] LABS: Troponin-I HS 385 pg/mL (3.0-78.0)
--- NOTE | 2023-02-17 12:54 | PCM.HP.STD ---
HPI - General General Date of Admission: 02/17/23 Date of Service: 02/17/23 Chief Complaint: Chest discomfort HPI Narrative RUSSELL KULKARNI is a 77 M who presented to [facility] ED on 02/17/2023 with chest discomfort and anxiety. Patient seen at bedside the ED, son present. Patient sitting comfortably in bed, conversing normally, no acute distress. Patient states that he was seen in the ED 8 days ago and was found to have COVID at that time. Primary symptoms at that time were cough and generalized fatigue. The symptoms have improved since his COVID diagnosis. However, he notes a mild chest discomfort and generalized restlessness and anxiety over the past 2 to 3 days. States the symptoms were similar to the symptoms he had in February 2022, was found to have an NSTEMI at that time. Notably, had cath done that showed patent previous stents, no intervention required. Patient otherwise denies any shortness of breath with exertion, fevers or chills, abdominal pain, lightheadedness or dizziness. No other acute concerns at this time. [facility] Medical History Atherosclerotic heart disease of [place] coronary artery without angina pectoris Chronic diastolic (congestive) heart failure Lightheadedness Longstanding persistent atrial fibrillation Multiple premature ventricular complexes NSTEMI (non-ST elevated myocardial infarction) (02/04/22) Obesity Tachy-cory syndrome Troponin I above reference range Unstable angina Home Medications cholecalciferol (vitamin D3) 50 mcg (2,000 unit) tablet 50 mcg PO DAILY SUPPLEMENT 04/13/21 [History Last Taken 02/17/23] colchicine 0.6 mg tablet 1.2 mg PO DAILY PRN gout 02/04/22 [History Last Taken 02/17/23] ferrous gluconate 324 mg (36 mg iron) tablet 324 mg PO DAILY SUPPLEMENT 02/04/22 [History Last Taken 02/17/23] folic acid 1 mg tablet 1 mg PO BID SUPPLEMENT 02/04/22 [History Last Taken 02/17/23] methotrexate sodium 2.5 mg tablet 15 mg PO SA arthritis 02/04/22 [History Last Taken 02/12/23] apixaban 5 mg tablet 5 mg PO BID BLOOD THINNER #90 tabs 05/14/22 [Rx Last Taken 02/17/23] doxazosin 1 mg tablet 1 mg PO DAILY BLOOD PRESSURE #90 tabs 05/14/22 [Rx Last Taken 02/17/23] furosemide 40 mg tablet 40 mg PO DAILY FLUID #90 tabs 05/14/22 [Rx Last Taken 02/17/23] pantoprazole 40 mg tablet,delayed release 40 mg PO DAILY ACID REFLUX #180 tabs 05/14/22 [Rx Last Taken 02/17/23] rosuvastatin 20 mg tablet 20 mg PO DAILY CHOLESTEROL #90 tabs 05/14/22 [Rx Last Taken 02/17/23] metoprolol succinate 50 mg tablet,extended release 24 hr 50 mg PO BID BLOOD PRESSURE #180 tabs 05/27/22 [Rx Last Taken 02/17/23] allopurinol 100 mg tablet 100 mg PO DAILY GOUT 08/31/22 [History Last Taken 02/17/23] aspirin 81 mg tablet,delayed release (Adult Low Dose Aspirin) 81 mg PO DAILY HEART HEALTH 08/31/22 [History Last Taken 02/17/23] gabapentin 100 mg capsule 100 mg PO BID NEUROPATHY 08/31/22 [History Last Taken 02/17/23] prednisone 10 mg tablet 10 mg PO DAILY PRN pain 08/31/22 [History Last Taken Unknown] potassium chloride 10 mEq tablet,extended release 10 meq PO DAILY #30 tabs 09/02/22 [Rx Last Taken 02/17/23] Allergy/AdvReac Type Severity Reaction Status Date / Time lisinopril Allergy Angioedema Verified 02/17/23 09:11 Penicillins [PCN] Allergy Hives Verified 02/17/23 09:11 Family History Other CVA (cerebral vascular accident) Hypertension Surgical History History of arthroscopic knee surgery History of coronary artery stent placement (09/22/20) History of left heart catheterization (02/05/22) History of permanent cardiac pacemaker placement (12/15/20) Social History Smoking Status: Former smoker ROS Constitutional Constitutional: Denies change in weight, chills, fatigue, fever(s) or weakness Eyes Eyes: Denies change in vision Cardiovascular Cardiovascular: Reports chest pain; Denies dyspnea on exertion, edema, lightheadedness or palpitations Respiratory/Chest Respiratory/Chest: Denies cough, shortness of breath at rest or shortness of breath with exertion Gastrointestinal Gastrointestinal: Denies abdominal pain, constipation, diarrhea, nausea or vomiting Genitourinary Genitourinary: Denies dysuria Neurologic Neurologic: Denies abnormal gait, abnormal speech, confusion, dizziness, focal weakness, numbness or paresthesias Psychiatric Psychiatric: Reports anxiety; Denies depression Vital Signs Vital Signs Vital Signs: 02/17/23 09:11 02/17/23 10:10 Temperature 98.1 F Temperature Source Temporal Pulse Rate 59 L Respiratory Rate 14 Blood Pressure 153/75 H Blood Pressure Mean 101 Pulse Ox 100 97 Oxygen Delivery Method Room Air Room Air Weight Weight: 113.1 kg Body Mass Index (BMI) 31.1 Physical Exam Const alert, oriented x3 and no apparent distress Constitutional Narrative: Pleasant elderly male, obese, sitting comfortably in bed, conversing normally, no acute distress. General Appearance: cooperative and comfortable HEENT normocephalic, head/scalp atraumatic, hearing grossly normal bilaterally, nasal mucous membranes and turbinates normal and moist oral mucous membranes Eyes PERRL, EOMs intact bilaterally and conjunctivae normal Neck full ROM, no lymphadenopathy and supple Lymph Lymphatic: no lymphadenopathy noted Chest inspection of chest normal Resp normal respiratory effort, normal air movement, no use of accessory muscles and clear to auscultation bilaterally Resp Narrative: Satting well on room air, no increased work of breathing noted. Cardio regular rate, regular rhythm, no murmurs and peripheral pulses 2+ throughout GI normal to inspection, nondistended, normoactive bowel sounds, soft to palpation, non-tender and non-distended Back/Spine normal ROM Extremity normal to inspection, full ROM and no pedal edema Skin no rashes or lesions noted Psych mental status grossly normal Results Lab / Micro Data 02/17/23 10:08 02/17/23 10:08 Labs: Laboratory Results - last 24 hr 02/17/23 10:08: WBC 8.4, RBC 3.77 L, Hgb 11.0 L, Hct 34.3 L, MCV 91.0, MCH 29.2, MCHC 32.1, RDW Std Deviation 49.5 H, RDW Coeff of Misti 15.0 H, Plt Count 218, MPV 10.7, Immature Gran % (Auto) 0.600, Neut % (Auto) 81.4 H, Lymph % (Auto) 12.1 L, [place] % (Auto) 5.1, Eos % (Auto) 0.6, Baso % (Auto) 0.2, Absolute Neuts (auto) 6.9, Absolute Lymphs (auto) 1.02, Nucleated RBC % 0, PT 16.6 H, INR 1.3, APTT 43.6 H, Sodium 139, Potassium 3.5, Chloride 102, Carbon Dioxide 31.0, Anion Gap 6, BUN 16, Creatinine 1.14, Estim Creat Clear Calc 66.92, Est GFR (MDRD) Af Amer 81, Est GFR (MDRD) Non-Af 67, BUN/Creatinine Ratio 14.0, Glucose 121 H, Calcium 9.1, Troponin I High Sens 389 H* 02/17/23 12:19: Troponin I High Sens 385 H* Radiology Impression Chest X-Ray 02/17/23 09:33 IMPRESSION: No radiographic evidence of acute cardiopulmonary disease. Electronically Signed: Eddie Gauthier MD at 10:59 EST , Chest/Abdomen/Pelvis CTA 02/17/23 10:50 IMPRESSION: 1. No evidence of aortic dissection. 2. Suboptimal enhancement of the carotid arteries. No evidence of central pulmonary embolism. 3. No acute pulmonary infiltrate or pleural effusions. 4. No focal acute inflammatory process. 5. Hepatic steatosis. Electronically Signed: Eddie Gauthier MD at 11:37 EST , Assessment & Plan Assessment/Plan (1) Non-ST elevation [place] (NSTEMI): PLAN: Plan Patient is a 77-year-old male who presented to [facility] ED on 02/17/2023 with chest discomfort and anxiety. 1. NSTEMI High risk for type I NSTEMI given known history of CAD, chest discomfort on presentation, elevated troponins, apparent new T wave inversions on EKG. ? Admit under inpatient status to PCU. Cardiology consulted. Noted that patient recent NSTEMI type II secondary to COVID-19 infection about 1 week ago, may have persistently elevated troponin secondary to that. However, given his risk factors, will obtain echo for further evaluation. Based on echo results, will consider possible cardiac catheterization versus medical treatment. Can continue home Eliquis for now, no need for heparin drip. Continue home aspirin, statin, Lopressor. 2. Recent COVID?19 infection ? Symptoms have largely resolved. Stable on room air. Symptomatic treatment as needed. No need for isolation precautions at this time. Chronic medical conditions: ? History of CAD s/p stenting: Follows outpatient cardiology. Last left heart cath was in 02/2022, stents noted to be patent at that time, medical management recommended. ? Obesity: BMI 30 on admit. Encouraged lifestyle modifications. ? Persistent atrial fibrillation/flutter s/p pacemaker: EKG on admit showed V paced rhythm at 60 bpm, 4:1 atrial flutter. Stable. Continue home Eliquis, Lopressor. ? HFpEF: Last echo from 02/2022 showed EF 50 to 55%, normal LV function, mild LA enlargement, no other acute findings. Continue home Lasix 40 mg daily, potassium supplement. ? GERD: Continue home PPI. ? Gout: Continue home allopurinol and colchicine. ? Neuropathy: Continue home gabapentin. ? Arthritis: Continue home methotrexate. ? BPH: Continue home doxazosin. DVT prophylaxis: Eliquis CODE STATUS: Full code, verified Expected disposition: Home, 1 to 2 days Total clinical time spent by myself addressing the patient's medical issues, reviewing all the data, and collaborating with patient's care team: 55 minutes. Charges/Coding Visit Charges Inpatient E&M: 28718 Init Hosp L2
--- NOTE | 2023-02-17 13:47 | ED.RN ---
[facility] CALLED, IS AWARE OF ADMITTANCE.
--- NOTE | 2023-02-17 15:26 | CON.PCM.CA_ITS ---
<Statement entered by Gee Elena MD - 02/17/23 16:00> Pt seen & evaluated w/CHARLEE. I personally interviewed & exam the pt. I was involved in all aspects of pt's orders, interpretation of results & treatment Documented by User: Jasmin PATIÑO, PA 02/17/23 15:42 Assessment & Plan Assessment/Plan (1) COVID-19: (2) HTN (hypertension), benign: (3) Hyperlipemia, mixed: (4) NSTEMI (non-ST elevated myocardial infarction): (5) History of permanent cardiac pacemaker placement: (6) Atherosclerotic heart disease of [place] coronary artery without angina pectoris: QUALIFIERS: [place] vs. transplanted heart: [place] heart Qualified Code(s): I25.10 - Atherosclerotic heart disease of [place] coronary artery without angina pectoris (7) History of coronary artery stent placement: HPI Consult Data Date of Consult: 02/17/23 HPI Narrative HPI Narrative: RUSSELL KULKARNI, is a 77 M who presented to [facility] on 02/17/23 with restlessness and unable to sit still. Symptoms were going on over the last few day but worsening this morning. He was concerned about these symptoms as they were similar to what he had prior to his heart cath last year. Heart cath at that time demo nstrated stents which were patent. His left main was normal his left anterior descending artery demonstrated patency of his mid LAD stent with a small D2 branch. The rest of the LAD had minimal atherosclerosis, the circumflex artery was a large vessel which was dominant the second OM 2 had a proximal 80% stenosis in the right coronary artery had a mid 40 to 50% stenosis. Medical therapy was recommended. Troponin was 433 at that time. Troponin today is 389/385. He did have COVID 8 days ago. He was seen in the ER for this, troponin was done, this was 341. He does have a history diastolic heart failure, hypertension, chronic persistent atrial fibrillation, CAD with previous angioplasty and stenting. He has a dual- chamber pacemaker implanted in December 2020 when he was being taken care of at the [facility]. It was at that time that he underwent the previous stenting to his LAD which was due to an abnormal calcium score. Echocardiogram in 02/2022 demonstrated a preserved EF. [facility] Medical History Atherosclerotic heart disease of [place] coronary artery without angina pectoris Chronic diastolic (congestive) heart failure Lightheadedness Longstanding persistent atrial fibrillation Multiple premature ventricular complexes NSTEMI (non-ST elevated myocardial infarction) (02/04/22) Obesity Tachy-cory syndrome Troponin I above reference range Unstable angina Home Medications cholecalciferol (vitamin D3) 50 mcg (2,000 unit) tablet 50 mcg PO DAILY SUPPLEMENT 04/13/21 [History Last Taken 02/17/23] colchicine 0.6 mg tablet 1.2 mg PO DAILY PRN gout 02/04/22 [History Last Taken 02/17/23] ferrous gluconate 324 mg (36 mg iron) tablet 324 mg PO DAILY SUPPLEMENT 02/04/22 [History Last Taken 02/17/23] folic acid 1 mg tablet 1 mg PO BID SUPPLEMENT 02/04/22 [History Last Taken 02/17/23] methotrexate sodium 2.5 mg tablet 15 mg PO SA arthritis 02/04/22 [History Last Taken 02/12/23] apixaban 5 mg tablet 5 mg PO BID BLOOD THINNER #90 tabs 05/14/22 [Rx Last Taken 02/17/23] doxazosin 1 mg tablet 1 mg PO DAILY BLOOD PRESSURE #90 tabs 05/14/22 [Rx Last Taken 02/17/23] furosemide 40 mg tablet 40 mg PO DAILY FLUID #90 tabs 05/14/22 [Rx Last Taken 02/17/23] pantoprazole 40 mg tablet,delayed release 40 mg PO DAILY ACID REFLUX #180 tabs 05/14/22 [Rx Last Taken 02/17/23] rosuvastatin 20 mg tablet 20 mg PO DAILY CHOLESTEROL #90 tabs 05/14/22 [Rx Last Taken 02/17/23] metoprolol succinate 50 mg tablet,extended release 24 hr 50 mg PO BID BLOOD PRESSURE #180 tabs 05/27/22 [Rx Last Taken 02/17/23] allopurinol 100 mg tablet 100 mg PO DAILY GOUT 08/31/22 [History Last Taken 02/17/23] aspirin 81 mg tablet,delayed release (Adult Low Dose Aspirin) 81 mg PO DAILY HEART HEALTH 08/31/22 [History Last Taken 02/17/23] gabapentin 100 mg capsule 100 mg PO BID NEUROPATHY 08/31/22 [History Last Taken 02/17/23] prednisone 10 mg tablet 10 mg PO DAILY PRN pain 08/31/22 [History Last Taken Unknown] potassium chloride 10 mEq tablet,extended release 10 meq PO DAILY #30 tabs 09/02/22 [Rx Last Taken 02/17/23] Allergy/AdvReac Type Severity Reaction Status Date / Time lisinopril Allergy Angioedema Verified 02/17/23 09:11 Penicillins [PCN] Allergy Hives Verified 02/17/23 09:11 Family History Other CVA (cerebral vascular accident) Hypertension Surgical History History of arthroscopic knee surgery History of coronary artery stent placement (09/22/20) History of left heart catheterization (02/05/22) History of permanent cardiac pacemaker placement (12/15/20) Social History Smoking Status: Former smoker Risk Stratification Risk Stratification Applicable: No Charges/Coding Visit Charges Office Visits / Consults: 72041 IP Consult L4 Objective Data Vital Signs: Vital Signs Temp Pulse Resp BP Pulse Ox O2 Del Method 98.6 F 63 16 157/73 H 96 Room Air 02/17/23 13:42 02/17/23 13:44 02/17/23 13:44 02/17/23 13:44 02/17/23 13:44 02/17/23 13:42 Oxygen Delivery Method Room Air Weight: 246 lb 0.574 oz Body Mass Index (BMI) 30.7 Intake & Output: Intake and Output for Last 24 Hours 02/15/23 02/16/23 02/17/23 23:59 23:59 23:59 Intake Total 500 / 500 Balance 500 / 500 Lab / Micro Data 02/17/23 10:08 02/17/23 10:08 Labs: Laboratory Results - last 24 hr 02/17/23 10:08: WBC 8.4, RBC 3.77 L, Hgb 11.0 L, Hct 34.3 L, MCV 91.0, MCH 29.2, MCHC 32.1, RDW Std Deviation 49.5 H, RDW Coeff of Misti 15.0 H, Plt Count 218, MPV 10.7, Immature Gran % (Auto) 0.600, Neut % (Auto) 81.4 H, Lymph % (Auto) 12.1 L, [place] % (Auto) 5.1, Eos % (Auto) 0.6, Baso % (Auto) 0.2, Absolute Neuts (auto) 6.9, Absolute Lymphs (auto) 1.02, Nucleated RBC % 0, PT 16.6 H, INR 1.3, APTT 43.6 H, Sodium 139, Potassium 3.5, Chloride 102, Carbon Dioxide 31.0, Anion Gap 6, BUN 16, Creatinine 1.14, Estim Creat Clear Calc 66.92, Est GFR (MDRD) Af Amer 81, Est GFR (MDRD) Non-Af 67, BUN/Creatinine Ratio 14.0, Glucose 121 H, Calcium 9.1, Troponin I High Sens 389 H* 02/17/23 12:19: Troponin I High Sens 385 H* Cardiology Labs/Tests 02/17/23 10:08: WBC 8.4, RBC 3.77 L, Hgb 11.0 L, Hct 34.3 L, MCV 91.0, MCH 29.2, MCHC 32.1, Plt Count 218, MPV 10.7, Immature Gran % (Auto) 0.600, Neut % (Auto) 81.4 H, Lymph % (Auto) 12.1 L, [place] % (Auto) 5.1, Eos % (Auto) 0.6, Baso % (Auto) 0.2, Absolute Neuts (auto) 6.9, Nucleated RBC % 0, PT 16.6 H, INR 1.3, APTT 43.6 H, Sodium 139, Potassium 3.5, Chloride 102, Carbon Dioxide 31.0, Anion Gap 6, BUN 16, Creatinine 1.14, Est GFR (MDRD) Af Amer 81, Est GFR (MDRD) Non- Af 67, BUN/Creatinine Ratio 14.0, Glucose 121 H, Calcium 9.1 Rhythm: EKG: ECHO: Stress Test: Cardiac Cath: PCI: CT Surgery: Holter monitor: EPS: PPM: CXR: Chest CT Scan: Radiography Diagnostic Testing: Radiology Impression Chest X-Ray 02/17/23 09:33 IMPRESSION: No radiographic evidence of acute cardiopulmonary disease. Electronically Signed: Eddie Gauthier MD at 10:59 EST , Chest/Abdomen/Pelvis CTA 02/17/23 10:50 IMPRESSION: 1. No evidence of aortic dissection. 2. Suboptimal enhancement of the carotid arteries. No evidence of central pulmonary embolism. 3. No acute pulmonary infiltrate or pleural effusions. 4. No focal acute inflammatory process. 5. Hepatic steatosis. Electronically Signed: Eddie Gauthier MD at 11:37 EST , Documented by User: Dr. Gee Elena MD 02/17/23 16:00 Assessment & Plan Assessment/Plan (1) COVID-19: (2) HTN (hypertension), benign: (3) Hyperlipemia, mixed: (4) NSTEMI (non-ST elevated myocardial infarction): (5) History of permanent cardiac pacemaker placement: (6) Atherosclerotic heart disease of [place] coronary artery without angina pectoris: QUALIFIERS: [place] vs. transplanted heart: [place] heart Qualified Code(s): I25.10 - Atherosclerotic heart disease of [place] coronary artery without angina pectoris (7) History of coronary artery stent placement: PLAN: 77-year-old patient with multiple comorbidities History of CAD with prior PCI and stent of LAD/drug-eluting stent to the mid LAD In 2020. This presentation was patient was restless however no symptoms of chest pain reported Recently had COVID-19 for 1 week History of hypertension Hyperlipidemia history of a pacemaker Had recent non-ST elevation MA. Noted he had elevated cardiac biomarkers. Currently he is on apixaban 5 mg twice a day in addition to low-dose aspirin. Patient currently on Prednisone, methotrexate, rosuvastatin on review of the record noted he had persistent elevation of high sensitive troponin Will evaluate this patient by echocardiogram as he had a recent COVID-19 And will discuss further plan based on his clinical progression. With possible cardiac catheterization versus medical treatment. HPI Consult Data Date of Consult: 02/17/23 [facility] Medical History Atherosclerotic heart disease of [place] coronary artery without angina pectoris Chronic diastolic (congestive) heart failure Lightheadedness Longstanding persistent atrial fibrillation Multiple premature ventricular complexes NSTEMI (non-ST elevated myocardial infarction) (02/04/22) Obesity Tachy-cory syndrome Troponin I above reference range Unstable angina Home Medications cholecalciferol (vitamin D3) 50 mcg (2,000 unit) tablet 50 mcg PO DAILY SUPPLEMENT 04/13/21 [History Last Taken 02/17/23] colchicine 0.6 mg tablet 1.2 mg PO DAILY PRN gout 02/04/22 [History Last Taken 02/17/23] ferrous gluconate 324 mg (36 mg iron) tablet 324 mg PO DAILY SUPPLEMENT 02/04/22 [History Last Taken 02/17/23] folic acid 1 mg tablet 1 mg PO BID SUPPLEMENT 02/04/22 [History Last Taken 02/17/23] methotrexate sodium 2.5 mg tablet 15 mg PO SA arthritis 02/04/22 [History Last Taken 02/12/23] apixaban 5 mg tablet 5 mg PO BID BLOOD THINNER #90 tabs 05/14/22 [Rx Last Taken 02/17/23] doxazosin 1 mg tablet 1 mg PO DAILY BLOOD PRESSURE #90 tabs 05/14/22 [Rx Last Taken 02/17/23] furosemide 40 mg tablet 40 mg PO DAILY FLUID #90 tabs 05/14/22 [Rx Last Taken 02/17/23] pantoprazole 40 mg tablet,delayed release 40 mg PO DAILY ACID REFLUX #180 tabs 05/14/22 [Rx Last Taken 02/17/23] rosuvastatin 20 mg tablet 20 mg PO DAILY CHOLESTEROL #90 tabs 05/14/22 [Rx Last Taken 02/17/23] metoprolol succinate 50 mg tablet,extended release 24 hr 50 mg PO BID BLOOD PRESSURE #180 tabs 05/27/22 [Rx Last Taken 02/17/23] allopurinol 100 mg tablet 100 mg PO DAILY GOUT 08/31/22 [History Last Taken 02/17/23] aspirin 81 mg tablet,delayed release (Adult Low Dose Aspirin) 81 mg PO DAILY HEART HEALTH 08/31/22 [History Last Taken 02/17/23] gabapentin 100 mg capsule 100 mg PO BID NEUROPATHY 08/31/22 [History Last Taken 02/17/23] prednisone 10 mg tablet 10 mg PO DAILY PRN pain 08/31/22 [History Last Taken Unknown] potassium chloride 10 mEq tablet,extended release 10 meq PO DAILY #30 tabs 09/02/22 [Rx Last Taken 02/17/23] Allergy/AdvReac Type Severity Reaction Status Date / Time lisinopril Allergy Angioedema Verified 02/17/23 09:11 Penicillins [PCN] Allergy Hives Verified 02/17/23 09:11 Family History Other CVA (cerebral vascular accident) Hypertension Surgical History History of arthroscopic knee surgery History of coronary artery stent placement (09/22/20) History of left heart catheterization (02/05/22) History of permanent cardiac pacemaker placement (12/15/20) Social History Smoking Status: Former smoker Physical Exam Cardio Cardio Narrative: Review the current evaluation here in the hospital Including the 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 Lab / Micro Data 02/17/23 10:08 02/17/23 10:08
--- NOTE | 2023-02-17 16:41 | ECHOCS_ITS ---
Reason For Study: Chest Discomfort Procedure This was a 2D Doppler, Color Flow transthoracic echocardiogram. The study was technically difficult. Contrast injection was performed. Exam performed portable in patient room. The exam was abbreviated due to the COVID 19 protocol. Left Ventricle Normal left ventricle. The estimated ejection fraction is 50-55 %. Right Ventricle Normal right ventricle. Normal systolic function. Atria The left atrium is mildly enlarged. Normal right atrium. Mitral Valve The mitral valve is structurally normal. No prolapse or stenosis seen. Tricuspid Valve Normal tricuspid valve. Aortic Valve Mild diffuse aortic valve calcification. Pulmonic Valve The pulmonic valve is not well visualized. Great Vessels Normal aortic root. Pericardium/Pleural Trivial pericardial effusion. Medication Diluted definity 2.5ml given slow IV push to enhance endocardial definition. MMode/2D Measurements & Calculations LVIDd: 5.5 cm IVSd: 1.3 cm Ao root diam: 3.8 cm LVIDs: 4.0 cm LVPWd: 1.2 cm LA dimension: 4.4 cm FS: 27.4 % LAV(MOD-bp): 62.8 ml LA A4 area: 23.0 cm2 LAV(MOD-bp) Indexed: 26.4 ml/m2 LAV(MOD-sp2): 54.3 ml LAV(MOD-sp4): 75.1 ml Time Measurements MV dec time: 0.20 sec Doppler Measurements & Calculations MV E max benito: 98.4 cm/sec Ao V2 max: 98.2 cm/sec LV V1 max: 99.0 cm/sec MV A max benito: 23.6 cm/sec Ao max P.9 mmHg LV V1 max P.9 mmHg MV E/A: 4.2 Ao V2 mean: 66.1 cm/sec LV V1 mean P.3 mmHg Ao mean P.0 mmHg LV V1 mean: 70.5 cm/sec Ao V2 VTI: 21.7 cm LV V1 VTI: 24.4 cm AV (velocity ratio): 1.1 TR max benito: 311.0 cm/sec TR max P.7 mmHg ECHO/Echo Complete W/ Contrast Interpretation Summary The estimated ejection fraction is 50-55 %. Overall normal LV systolic function Contrast echo/used Definity No prior echo to compare Ordering Physician: Gee Elena Performed By: Horacio Lew RCS
[2023-02-17] MEDS: Metoprolol(XL)Succ 50 MG Tablet PO (22:10)
[2023-02-17] MEDS: Gabapentin 100 MG Capsule PO (22:10)
[2023-02-17] MEDS: Atorvastatin Calcium 40 MG Tablet PO (22:13)
[2023-02-17] MEDS: MELATONIN 3 MG TABLET PO (23:25)
[2023-02-18 04:00] VITALS: BP 138/85; PULSE 60; RESP 16; TEMP 36.7; O2SAT 99
[2023-02-18 06:54] LABS: Hematocrit 33.5 % (40-54); Hemoglobin 10.8 g/dL (13.0-16.5); Mean Corp Hgb Conc 32.2 g/dL (32-36); Mean Corpuscular Hgb 30.1 pg (27.0-32.0); Mean Corpuscular Volume 93.3 fL (80-94); Mean Platelet Vol. 10.5 fl (6.2-12.0); Platelet Count 208 K/mm3 (150-450); RBC Distribution Width CV 15.1 % (11.6-14.6); RBC Distribution Width SD 51.7 fl (35.1-43.9); Red Blood Count 3.59 M/mm3 (4.6-6.2); White Blood Count 6.4 K/mm3 (4.4-11.0)
[2023-02-18 07:36] LABS: Anion Gap 5 (5-15); BUN 13 mg/dL (7-18); BUN/Creat Ratio 12.4 RATIO (10-20); Calcium,Total 8.6 mg/dL (8.5-10.1); Chloride 105 mmol/L (98-107); Creatinine, Serum 1.05 mg/dL (0.70-1.30); EST Glomerular Filtration Rate 73 mL/min (>60); Est Glom Filt Rate - Afr Amer 89 mL/min (>60); Estimated Creatinine Clearance 72.65 ml/min; Glucose 95 mg/dL (74-106); Potassium 3.4 mmol/L (3.5-5.1); Sodium Level 140 mmol/L (136-145)
[2023-02-18 08:35] VITALS: BP 114/72; PULSE 62; RESP 14; TEMP 37.1; O2SAT 98
[2023-02-18] MEDS: Gabapentin 100 MG Capsule PO (08:36)
[2023-02-18 08:37] VITALS: BP 114/72; PULSE 62
[2023-02-18] MEDS: Ferrous Gluconate 324 MG Tablet PO (08:37)
[2023-02-18] MEDS: Aspirin E.C. 81 MG Tablet PO (08:37)
[2023-02-18] MEDS: Metoprolol(XL)Succ 50 MG Tablet PO (08:37)
[2023-02-18] MEDS: Pantoprazole Sodium 40 MG Tablet PO (08:38)
[2023-02-18 13:42] VITALS: BP 115/67; PULSE 78; RESP 14; TEMP 36.8; O2SAT 97
--- NOTE | 2023-02-18 14:25 | CASEMGMT ---
RN CM Face to Face with patient for initial transition planning/care coordination assessment. RN CM introduced self and role at [facility]. Patient lying in bed, alert and oriented. Patient willing to participate in assessment and is able to answer all questions appropriately. Care providers, pharmacy, and demographics verified. Patient wishes to discharge home, denies need for home health at this time. Patient states he has no further needs or concerns at this time. CM to follow for discharge planning needs that may arise. PCP: Neville De Luna [place] Specialists: [place] Senior Clinical Data Analyst Preferred Pharmacy: [facility] Insurance: [employer] [facility] Prescription Benefit: [place] Living Will/HPOA: yes, son Ray Abarca LNOK: son, daughter Living Arrangements: Patient lives alone in a single story home with 3 steps and railing to enter the home. Patient states he is independent at home. Transportation: self, son DME/HHC: Patient has shower chair, walker, wheelchair at home. No previous SNF. [facility]. Disposition Plan: Patient to discharge home with family support and follow-up plans in place. Yolanda BIGGS, RN, CM
--- NOTE | 2023-02-18 14:46 | DCINST_ITS ---
Discharge Instructions Diet Discharge Diet: No restrictions Activity Discharge Activity: Return to Normal Activity Weight Bearing Status: Full weight bearing Follow Up Care Test Results: Test results from this visit will be discussed in further detail at your follow- up appointment, if applicable. Discharge Plan Admission Admit Date/Time: 02/17/23 16:23 Primary Reason for Your Visit: Chest discomfort, anxiety Attending Provider: Joshua Clay Primary Care Provider: [facility],[place] Consulting Providers: Gee Elena Instructions Additional Instructions / Restrictions: Continue all home medications as previously prescribed. Follow-up with your primary care doctor as needed. Discharge Orders/Prescriptions Prescriptions: Continued aspirin [Adult Low Dose Aspirin] 81 mg tablet,delayed release (DR/EC) 81 mg PO DAILY gabapentin 100 mg capsule 100 mg PO BID cholecalciferol (vitamin D3) 50 mcg (2,000 unit) Tablet 50 mcg PO DAILY allopurinol 100 mg tablet 100 mg PO DAILY methotrexate sodium 2.5 mg Tablet 15 mg PO SA folic acid 1 mg tablet 1 mg PO BID colchicine 0.6 mg tablet 1.2 mg PO DAILY PRN (Reason: gout) ferrous gluconate 324 mg (36 mg iron) Tablet 324 mg PO DAILY prednisone 10 mg tablet 10 mg PO DAILY PRN (Reason: pain ) apixaban 5 mg tablet 5 mg PO BID Qty: 90 3RF doxazosin 1 mg tablet 1 mg PO DAILY Qty: 90 3RF furosemide 40 mg tablet 40 mg PO DAILY Qty: 90 3RF rosuvastatin 20 mg tablet 20 mg PO DAILY Qty: 90 3RF pantoprazole 40 mg tablet,delayed release (DR/EC) 40 mg PO DAILY Qty: 180 3RF metoprolol succinate 50 mg tablet extended release 24 hr 50 mg PO BID Qty: 180 3RF potassium chloride 10 mEq tablet extended release 10 meq PO DAILY Qty: 30 11RF Hold Instructions: Ordered Referrals / Follow Up: [place] [Primary Care Provider] - Disposition Disposition (needs filled in before D/C Order can be placed): Home, Self Care
[2023-02-18 14:49] VITALS: BP 112/63; PULSE 61; RESP 12; TEMP 3.7; TEMP 38.6; O2SAT 96
--- NOTE | 2023-02-18 14:49 | PCM.DC.SUM ---
Providers Date of Admission: 02/17/23 Date of Discharge: 02/18/23 Primary Care Physician: [facility] Consultations 02/17/23 13:42 Consult: Cardiology Routine Consulting Provider: Gee Elena Reason for Consult: NSTEMI EMERGENT Consult: No MD Notified: Yes Date Notified: 02/17/23 Time Notified: 13:01 Method of Notification: Verbal Reason For Visit: CHEST DISCOMFORT Diagnosis Discharge Diagnosis (1) Non-ST elevation [place] (NSTEMI): Status: Acute Code(s): I21.4 - Non-ST elevation (NSTEMI) myocardial infarction Medications at Discharge Home Medications cholecalciferol (vitamin D3) 50 mcg (2,000 unit) tablet 50 mcg PO DAILY SUPPLEMENT 04/13/21 colchicine 0.6 mg tablet 1.2 mg PO DAILY PRN gout 02/04/22 ferrous gluconate 324 mg (36 mg iron) tablet 324 mg PO DAILY SUPPLEMENT 02/04/22 folic acid 1 mg tablet 1 mg PO BID SUPPLEMENT 02/04/22 methotrexate sodium 2.5 mg tablet 15 mg PO SA arthritis 02/04/22 apixaban 5 mg tablet 5 mg PO BID BLOOD THINNER #90 tabs 05/14/22 doxazosin 1 mg tablet 1 mg PO DAILY BLOOD PRESSURE #90 tabs 05/14/22 furosemide 40 mg tablet 40 mg PO DAILY FLUID #90 tabs 05/14/22 pantoprazole 40 mg tablet,delayed release 40 mg PO DAILY ACID REFLUX #180 tabs 05/14/22 rosuvastatin 20 mg tablet 20 mg PO DAILY CHOLESTEROL #90 tabs 05/14/22 metoprolol succinate 50 mg tablet,extended release 24 hr 50 mg PO BID BLOOD PRESSURE #180 tabs 05/27/22 allopurinol 100 mg tablet 100 mg PO DAILY GOUT 08/31/22 aspirin 81 mg tablet,delayed release (Adult Low Dose Aspirin) 81 mg PO DAILY HEART HEALTH 08/31/22 gabapentin 100 mg capsule 100 mg PO BID NEUROPATHY 08/31/22 prednisone 10 mg tablet 10 mg PO DAILY PRN pain 08/31/22 potassium chloride 10 mEq tablet,extended release 10 meq PO DAILY #30 tabs 09/02/22 Hospital Course Operations None Procedures Transthoracic echo and - (CTA chest/abdomen/pelvis, chest x-ray) Summary of Care Provided Minutes Spent on Discharge: 35 Hospital Course: Patient is a 77-year-old male who presented to [facility] ED on 02/17/2023 with chest discomfort and anxiety. Short hospital course as noted below. NSTEMI: Patient was considered high risk for type I NSTEMI given known history of CAD, chest discomfort on presentation, elevated troponins, apparent new T wave inversions on EKG. However, patient was also noted to have elevated troponins with ED admission about 1 week ago for COVID-19 infection. Cardiology followed, had lower concern for type I NSTEMI on review of previous catheterization data as noted below and presentation on admission, recommended repeat TTE only. Repeat TTE showed normal EF, stable from previous echo. ? Patient stable on discharge. Continued home aspirin, statin, Lopressor, Eliquis on discharge. No new medications prescribed. History of CAD s/p stenting: Follows with outpatient cardiology. Last left heart cath was in 02/2022, stents noted to be patent at that time, medical management was recommended. ? Continue outpatient follow-up with cardiology as previously scheduled. Discharge diagnoses: ? NSTEMI, presumed type II ? History of CAD s/p stenting ? Recent COVID infection, improved ? Obesity ? Persistent atrial fibrillation/flutter s/p pacemaker ? HFpEF ? GERD ? Gout ? Neuropathy ? Arthritis ? BPH Total clinical time spent by myself addressing the patient's discharge needs: 35 minutes. Physical Exam Const alert, oriented x3 and no apparent distress Constitutional Narrative: Pleasant elderly male, obese, sitting comfortably in bed, conversing normally, no acute distress. General Appearance: cooperative and comfortable HEENT normocephalic, head/scalp atraumatic, hearing grossly normal bilaterally, nasal mucous membranes and turbinates normal and moist oral mucous membranes Eyes PERRL, EOMs intact bilaterally and conjunctivae normal Neck full ROM, no lymphadenopathy and supple Lymph Lymphatic: no lymphadenopathy noted Chest inspection of chest normal Resp normal respiratory effort, normal air movement, no use of accessory muscles and clear to auscultation bilaterally Resp Narrative: Satting well on room air, no increased work of breathing noted. Cardio regular rate, regular rhythm, no murmurs and peripheral pulses 2+ throughout GI normal to inspection, nondistended, normoactive bowel sounds, soft to palpation, non-tender and non-distended Back/Spine normal ROM Extremity normal to inspection, full ROM and no pedal edema Skin no rashes or lesions noted Psych mental status grossly normal Weight / BMI Weight Weight: 111.6 kg Body Mass Index (BMI) 30.7 ABG / Lab / Microbiology Data 02/18/23 06:40 02/18/23 06:40 Laboratory: Laboratory Results - last 24 hr 02/18/23 06:40: WBC 6.4, RBC 3.59 L, Hgb 10.8 L, Hct 33.5 L, MCV 93.3, MCH 30.1, MCHC 32.2, RDW Std Deviation 51.7 H, RDW Coeff of Misti 15.1 H, Plt Count 208, MPV 10.5, Sodium 140, Potassium 3.4 L, Chloride 105, Carbon Dioxide 30.0, Anion Gap 5, BUN 13, Creatinine 1.05, Estim Creat Clear Calc 72.65, Est GFR (MDRD) Af Amer 89, Est GFR (MDRD) Non-Af 73, BUN/Creatinine Ratio 12.4, Glucose 95, Calcium 8.6 Radiography Diagnostic Testing: Radiology Impression Echocardiogram 02/17/23 16:41 Interpretation Summary The estimated ejection fraction is 50-55 %. Overall normal LV systolic function Contrast echo/used Definity No prior echo to compare Ordering Physician: Gee Elena Performed By: Horacio Lew RCS D/C Instructions Discharge Diet: No restrictions Weight Bearing Status: Full weight bearing Meaningful Use Info Meaningful Use Diagnoses (Choose all that apply): None applicable Discharge Plan Admission Admit Date/Time: 02/17/23 16:23 Primary Reason for Your Visit: Chest discomfort, anxiety Attending Provider: Joshua Clay Primary Care Provider: [facility],[place] Consulting Providers: Gee Elena Instructions Additional Instructions / Restrictions: Continue all home medications as previously prescribed. Follow-up with your primary care doctor as needed. Discharge Orders/Prescriptions Prescriptions: Continued aspirin [Adult Low Dose Aspirin] 81 mg tablet,delayed release (DR/EC) 81 mg PO DAILY gabapentin 100 mg capsule 100 mg PO BID cholecalciferol (vitamin D3) 50 mcg (2,000 unit) Tablet 50 mcg PO DAILY allopurinol 100 mg tablet 100 mg PO DAILY methotrexate sodium 2.5 mg Tablet 15 mg PO SA folic acid 1 mg tablet 1 mg PO BID colchicine 0.6 mg tablet 1.2 mg PO DAILY PRN (Reason: gout) ferrous gluconate 324 mg (36 mg iron) Tablet 324 mg PO DAILY prednisone 10 mg tablet 10 mg PO DAILY PRN (Reason: pain ) apixaban 5 mg tablet 5 mg PO BID Qty: 90 3RF doxazosin 1 mg tablet 1 mg PO DAILY Qty: 90 3RF furosemide 40 mg tablet 40 mg PO DAILY Qty: 90 3RF rosuvastatin 20 mg tablet 20 mg PO DAILY Qty: 90 3RF pantoprazole 40 mg tablet,delayed release (DR/EC) 40 mg PO DAILY Qty: 180 3RF metoprolol succinate 50 mg tablet extended release 24 hr 50 mg PO BID Qty: 180 3RF potassium chloride 10 mEq tablet extended release 10 meq PO DAILY Qty: 30 11RF Hold Instructions: MD Ordered Referrals / Follow Up: [facility] [Primary Care Provider] - Disposition Disposition (needs filled in before D/C Order can be placed): Home, Self Care Charges/Coding Visit Charges Inpatient E&M: 21149 Disch Hosp >30min
== END 2023-02-18 15:29 | disposition home or self-care (01) | DRG 281 ==
LOC: ED 13:34 → PCU 13:34
PROVIDERS: Admitting Provider Hospitalist; Emergency Provider Emergency Medicine; Visit Provider Hospitalist
DX: I21.A1 Myocardial infarction type 2 (principal); I50.32 Chronic diastolic (congestive) heart failure; I48.11 Longstanding persistent atrial fibrillation; I48.92 Unspecified atrial flutter; I11.0 Hypertensive heart disease with heart failure; G62.9 Polyneuropathy, unspecified; E78.2 Mixed hyperlipidemia; E66.9 Obesity, unspecified; I25.10 Atherosclerotic heart disease of native coronary artery without angina pectoris; F41.9 Anxiety disorder, unspecified; K21.9 Gastro-esophageal reflux disease without esophagitis; M10.9 Gout, unspecified; M19.90 Unspecified osteoarthritis, unspecified site; I25.2 Old myocardial infarction; U09.9 Post COVID-19 condition, unspecified; N40.0 Benign prostatic hyperplasia without lower urinary tract symptoms; Z95.0 Presence of cardiac pacemaker; Z95.5 Presence of coronary angioplasty implant and graft; Z68.30 Body mass index [BMI] 30.0-30.9, adult; Z79.01 Long term (current) use of anticoagulants; Z79.02 Long term (current) use of antithrombotics/antiplatelets; Z79.82 Long term (current) use of aspirin; Z79.899 Other long term (current) drug therapy; Z87.891 Personal history of nicotine dependence
CPT/HCPCS: 36415; 71046; 71275; 74174; 80048; 84484; 85025; 85027; 85610; 85730; 93005; 93306; 99285; J7040; Q9957; Q9967; A4216; C8929

== ENCOUNTER 2023-03-12 07:18 | Inpatient (IN) | payer OTHER, SELFPAY ==
[2023-03-12] VITALS (15 sets, daily range): BP systolic 91–178; BP diastolic 55–84; PULSE 58–65; RESP 14–18; TEMP 35.9–36.8; O2SAT 97–100; BMI 31.8; BMI 30.7
--- NOTE | 2023-03-12 07:39 | ED.VIS.GI ---
HPI HPI - GI History of Present Illness Chief Complaint: GI Bleed Informant: patient and family Abdominal Pain/Flank Pain Context: Sudden Onset Timing: Intermittent Current Severity: Mild Maximum Severity: Mild Nausea/Vomiting/Emesis GI Symptom: Negative for Nausea or Vomiting Diarrhea/Melena/Hematochezia GI Symptom: Positive for Hematochezia; Negative for Diarrhea Onset: Today Severity: Mild Associated Symptoms Associated Symptoms: Negative for Dysuria, Frequency or Hematuria Narrative Narrative: 77-year-old male on 1125 had a colonoscopy and polypectomy done at [facility] by Dr. Samuel Contreras. Patient has been doing well. He is on Eliquis for a past medical history of A-fib and today he noticed dark blood with his stool. No hematemesis. No clots. Denies any abdominal pain. Prior history of GI bleed. Prior similar symptoms: Yes Recent Illness/Hospitalization: No PFSH [facility] Medical History Atherosclerotic heart disease of [place] coronary artery without angina pectoris Chronic diastolic (congestive) heart failure HTN (hypertension), benign Hyperlipemia, mixed Lightheadedness Longstanding persistent atrial fibrillation Multiple premature ventricular complexes Obesity Tachy-cory syndrome Troponin I above reference range Unstable angina Home Medications cholecalciferol (vitamin D3) 50 mcg (2,000 unit) tablet 50 mcg PO DAILY SUPPLEMENT 04/13/21 [History Last Taken 02/17/23] colchicine 0.6 mg tablet 1.2 mg PO DAILY PRN gout 02/04/22 [History Last Taken 02/17/23] ferrous gluconate 324 mg (36 mg iron) tablet 324 mg PO DAILY SUPPLEMENT 02/04/22 [History Last Taken 02/17/23] folic acid 1 mg tablet 2 mg PO DAILY SUPPLEMENT 02/04/22 [History Last Taken 02/17/23] methotrexate sodium 2.5 mg tablet 15 mg PO SA arthritis 02/04/22 [History Last Taken 02/12/23] apixaban 5 mg tablet 5 mg PO BID BLOOD THINNER #90 tabs 05/14/22 [Rx Last Taken 02/17/23] doxazosin 1 mg tablet 1 mg PO DAILY BLOOD PRESSURE #90 tabs 05/14/22 [Rx Last Taken 02/17/23] furosemide 40 mg tablet 40 mg PO DAILY FLUID #90 tabs 05/14/22 [Rx Last Taken 02/17/23] pantoprazole 40 mg tablet,delayed release 40 mg PO DAILY ACID REFLUX #180 tabs 05/14/22 [Rx Last Taken 02/17/23] rosuvastatin 20 mg tablet 20 mg PO DAILY CHOLESTEROL #90 tabs 05/14/22 [Rx Last Taken 02/17/23] metoprolol succinate 50 mg tablet,extended release 24 hr 50 mg PO BID BLOOD PRESSURE #180 tabs 05/27/22 [Rx Last Taken 02/17/23] allopurinol 100 mg tablet 200 mg PO DAILY GOUT 08/31/22 [History Last Taken 02/17/23] aspirin 81 mg tablet,delayed release (Adult Low Dose Aspirin) 81 mg PO DAILY HEART HEALTH 08/31/22 [History Last Taken 02/17/23] gabapentin 100 mg capsule 100 mg PO TID NEUROPATHY 08/31/22 [History Last Taken 02/17/23] prednisone 10 mg tablet 10 mg PO DAILY PRN pain 08/31/22 [History Last Taken Unknown] potassium chloride 10 mEq tablet,extended release 10 meq PO DAILY hypokalemia #30 tabs 09/02/22 [Rx Last Taken 02/17/23] acetaminophen 325 mg tablet (Tylenol) 325 mg PO Q6H PRN pain 03/12/23 [History Last Taken Unknown] lidocaine 5 % topical patch 2 patch topical DAILY pain 03/12/23 [History Last Taken Unknown] Allergy/AdvReac Type Severity Reaction Status Date / Time lisinopril Allergy Angioedema Verified 03/12/23 07:18 Penicillins [PCN] Allergy Hives Verified 03/12/23 07:18 Family History Other CVA (cerebral vascular accident) Hypertension Surgical History History of arthroscopic knee surgery History of coronary artery stent placement (09/22/20) History of left heart catheterization (02/05/22) History of permanent cardiac pacemaker placement (12/15/20) Social History Smoking Status: Former smoker ROS ROS ED ROS Narrative No recent illness. GI bleed. Review of Systems ROS Unobtainable: Denies due to encephalopathy Constitutional Constitutional ED: Denies chills or fever(s) ENT ENT ED: Denies ear pain Cardiovascular Cardiovascular: Denies chest pain Respiratory/Chest Respiratory/Chest: Denies cough or dyspnea Gastrointestinal Gastrointestinal: Denies abdominal pain, constipation, diarrhea, nausea or vomiting Genitourinary Genitourinary ED: Denies dysuria or hematuria Musculoskeletal Musculoskeletal: Denies arthralgias, back pain or myalgias Integumentary Denies abscess, Abrasions or rash Neurologic Neurologic: Denies headache(s) Psychiatric Psychiatric: Denies anxiety Endocrine Endocrinology: Denies polydipsia Hematologic/Lymphatic Hematologic/Lymphatic: Denies easy bleeding or easy bruising Allergic/Immunologic Allergic/Immunologic ED: Denies mouth swelling, tongue swelling or urticaria EXAM Physical Exam Narrative Exam Narrative: 77-year-old male no acute distress. Vital signs stable afebrile. HEENT exam unremarkable. Neck nontender no lymphadenopathy. Lungs clear to auscultation bilaterally. Heart regular rhythm no murmur. Abdomen is soft nontender. Rectal exam dark blood not black. Nontender. Moving all 4 extremities. Nontender no edema. Neurologically is awake and alert with no focal motor deficits. Answering questions and following commands. Const Vital Signs: 03/12/23 07:18 03/12/23 11:09 03/12/23 13:00 Temperature 96.6 F L Temperature Source Temporal Pulse Rate 60 60 58 L Respiratory Rate 18 16 16 Blood Pressure 178/84 H 128/82 H 155/67 H Blood Pressure Mean 115 97 96 Pulse Ox 99 100 97 Oxygen Delivery Method Room Air Room Air Positive well nourished and well developed; Negative for cachectic, contractures or unkempt General Appearance ED: well developed and NAD; Negative for unkempt, cachectic, contractures or pallor Nutritional Appearance: Negative for cachectic HEENT Reports moist mucous membranes normocephalic and atraumatic; Negative for trauma or tenderness Eyes PERRL and EOMs intact bilaterally General Eye ED: Negative for pale conjunctiva, scleral icterus or other Neck no lymphadenopathy, supple and no JVD General: Negative for tenderness Carotids: Negative for other Lymph Lymphatic: Negative for other Resp normal respiratory effort and clear to auscultation bilaterally Effort and Inspection: Negative for respiratory distress Auscultation: Negative for rales, rhonchi or wheezes Cardio regular rate, regular rhythm, S1 normal heart sound, S2 normal heart sound and no murmurs Rate: Negative for bradycardia or tachycardic Rhythm: Negative for abnormal rhythm GI non-tender, non-distended and no masses Inspection: Negative for abdominal distention Auscultation: normoactive bowel sounds Palpation: soft; Negative for tender, guarding or rigid Back/Spine no CVA tenderness General Back: Negative for CVA tenderness Cervical Spine: Negative for cervical spine tenderness Thoracic Spine / Upper Back: Negative for thoracic spinal tenderness Lumbar Spine / Lower Back: Negative for lumbar spinal tenderness Coccyx: Negative for other Extremity full ROM General Extremety ED: Negative for edema or tenderness General Extremity: Negative for edema Neuro CN's II-XII intact bilaterally and moves all extremities Neuro Narrative: Sensorium / Orientation: alert, oriented to person, oriented to place and oriented to time; Negative for orientation impaired, confused, lethargic or stuporous Motor Exam: strength 5/5 throughout Psych mental status grossly normal and thought process normal Appearance: Negative for unkempt Attitude: No agitated Mood & Affect: Negative for depressed, anxious or tearful Skin no wounds General Skin Exam: Negative for jaundice or pallor Lesions: no lesions Rashes: no rashes Trauma: Negative for abrasion Nails: Negative for discolored MDM MDM MDM Narrative Medical decision making narrative: 77-year-old male GI bleed. On Eliquis. Recent colonoscopy and polypectomy about 11 days ago or so. Doing labs. Type and screen. Currently stable. Repeat exam patient is doing well at 8:45 AM. I spoke to general surgeon on-call for [facility] for Dr. Samuel Rushing. He agrees with the patient being admitted to their facility. I will go through the transfer center for admission through the hospitalist service. Patient is aware that he will be admitted to [facility]. I was informed around 230 the [facility] would not have a bed available today for the patient to be transferred. We had planned admit the patient here and then [facility] had a bed and he will be sent there. His pressure is stable. He has had additional bloody bowel movements. History & Record Review Discussion w/independent historian: Patient Additional record(s) reviewed:: Prior inpatient record, Prior outpatient record, Prior ED visit, Prior labs and No prior records Lab Data Attestation: I reviewed the patient's lab results. Lab results narrative: BC shows a white count 12.1. H&H 9.4 and 30.5. Previously had a hemoglobin 10.8 about 3 weeks ago. Platelets 165. Chemistries show a gap of 5. BUN of 20 creatinine 1.21. Liver enzymes are unremarkable. Labs: Laboratory Results - last 24 hr 03/12/23 07:55 WBC 12.1 H RBC 3.23 L Hgb 9.4 L Hct 30.5 L MCV 94.4 H MCH 29.1 MCHC 30.8 L RDW Std Deviation 53.2 H RDW Coeff of Misti 15.3 H Plt Count 165 MPV 11.9 Sodium 138 Potassium 3.8 Chloride 105 Carbon Dioxide 28.0 Anion Gap 5 BUN 20 H Creatinine 1.21 Estim Creat Clear Calc 63.05 Est GFR (MDRD) Af Amer 75 Est GFR (MDRD) Non-Af 62 BUN/Creatinine Ratio 16.5 Glucose 121 H Calcium 8.7 Total Bilirubin 0.70 AST 11 L ALT 13 L Alkaline Phosphatase 59 Total Protein 5.9 L Albumin 3.1 L Globulin 2.8 Albumin/Globulin Ratio 1.1 Blood Type B POSITIVE Antibody Screen NEGATIVE Discharge Plan Triage Chief Complaint: GI Bleed ED Provider: Hugo Romo Dx/Rx/DC Orders Clinical Impression: Anemia, Chronic anticoagulation, History of colonoscopy with polypectomy, Acute GI bleeding Primary Care Provider: [facility] Disposition Disposition: [facility]
[2023-03-12 08:07] LABS: Hematocrit 30.5 % (40-54); Hemoglobin 9.4 g/dL (13.0-16.5); Mean Corp Hgb Conc 30.8 g/dL (32-36); Mean Corpuscular Hgb 29.1 pg (27.0-32.0); Mean Corpuscular Volume 94.4 fL (80-94); Mean Platelet Vol. 11.9 fl (6.2-12.0); Platelet Count 165 K/mm3 (150-450); RBC Distribution Width CV 15.3 % (11.6-14.6); RBC Distribution Width SD 53.2 fl (35.1-43.9); Red Blood Count 3.23 M/mm3 (4.6-6.2); White Blood Count 12.1 K/mm3 (4.4-11.0)
[2023-03-12 08:36] LABS: ALB/GLOB Ratio 1.1 RATIO (0.9-2.4); AST(SGOT) 11 U/L (15-37); Alanine Aminotransfer ALT/SGPT 13 U/L (16-61); Albumin, Serum 3.1 g/dL (3.2-5.0); Alkaline Phosphatase 59 U/L (45-117); Anion Gap 5 (5-15); BUN 20 mg/dL (7-18); BUN/Creat Ratio 16.5 RATIO (10-20); Calcium,Total 8.7 mg/dL (8.5-10.1); Chloride 105 mmol/L (98-107); Creatinine, Serum 1.21 mg/dL (0.70-1.30); EST Glomerular Filtration Rate 62 mL/min (>60); Est Glom Filt Rate - Afr Amer 75 mL/min (>60); Estimated Creatinine Clearance 63.05 ml/min; Globulin 2.8 g/dL (2.2-4.2); Glucose 121 mg/dL (74-106); Potassium 3.8 mmol/L (3.5-5.1); Protein, Total 5.9 g/dL (6.4-8.2); Sodium Level 138 mmol/L (136-145)
--- NOTE | 2023-03-12 10:08 | ED.RN ---
[facility] CALLED, ETA 1200
--- NOTE | 2023-03-12 13:55 | ED.RN ---
CALLED [facility] TO GET AN UPDATE ON WAIT BED STATUS. SPOKE WITH PANCHO, SHE STATED SHE DOESN'T KNOW AN EXACT ETA, BUT TRANSFER MOST LIKELY WILL NOT OCCUR TODAY.
--- NOTE | 2023-03-12 15:07 | PCM.HP.STD ---
HPI - General General Date of Admission: 03/12/23 HPI Narrative RUSSELL KULKARNI, is a 77 M who presents to the hospital with GI bleeding. He had a colonoscopy at the end of February at [facility] where he had a couple polyps removed. He does take Eliquis for A-fib as well as aspirin. A few days after the colonoscopy he noticed some lower GI bleeding but then it went away and then it came back a few days ago and he says that it got worse this morning which is why presented to the hospital. The ED did try to attempt to discharge him back to [facility] where his general surgeon is who did a colonoscopy but they were full and could not accept any patients so we will admit him here pending possible transfer unless he worsens and he is okay with having a colonoscopy here or intervention here if that were to happen. [facility] Medical History Atherosclerotic heart disease of [place] coronary artery without angina pectoris Chronic diastolic (congestive) heart failure HTN (hypertension), benign Hyperlipemia, mixed Lightheadedness Longstanding persistent atrial fibrillation Multiple premature ventricular complexes Obesity Tachy-cory syndrome Troponin I above reference range Unstable angina Home Medications cholecalciferol (vitamin D3) 50 mcg (2,000 unit) tablet 50 mcg PO DAILY SUPPLEMENT 04/13/21 [History Last Taken 02/17/23] colchicine 0.6 mg tablet 1.2 mg PO DAILY PRN gout 02/04/22 [History Last Taken 02/17/23] ferrous gluconate 324 mg (36 mg iron) tablet 324 mg PO DAILY SUPPLEMENT 02/04/22 [History Last Taken 02/17/23] folic acid 1 mg tablet 2 mg PO DAILY SUPPLEMENT 02/04/22 [History Last Taken 02/17/23] methotrexate sodium 2.5 mg tablet 15 mg PO SA arthritis 02/04/22 [History Last Taken 02/12/23] apixaban 5 mg tablet 5 mg PO BID BLOOD THINNER #90 tabs 05/14/22 [Rx Last Taken 02/17/23] doxazosin 1 mg tablet 1 mg PO DAILY BLOOD PRESSURE #90 tabs 05/14/22 [Rx Last Taken 02/17/23] furosemide 40 mg tablet 40 mg PO DAILY FLUID #90 tabs 05/14/22 [Rx Last Taken 02/17/23] pantoprazole 40 mg tablet,delayed release 40 mg PO DAILY ACID REFLUX #180 tabs 05/14/22 [Rx Last Taken 02/17/23] rosuvastatin 20 mg tablet 20 mg PO DAILY CHOLESTEROL #90 tabs 05/14/22 [Rx Last Taken 02/17/23] metoprolol succinate 50 mg tablet,extended release 24 hr 50 mg PO BID BLOOD PRESSURE #180 tabs 05/27/22 [Rx Last Taken 02/17/23] allopurinol 100 mg tablet 200 mg PO DAILY GOUT 08/31/22 [History Last Taken 02/17/23] aspirin 81 mg tablet,delayed release (Adult Low Dose Aspirin) 81 mg PO DAILY HEART HEALTH 08/31/22 [History Last Taken 02/17/23] gabapentin 100 mg capsule 100 mg PO TID NEUROPATHY 08/31/22 [History Last Taken 02/17/23] prednisone 10 mg tablet 10 mg PO DAILY PRN pain 08/31/22 [History Last Taken Unknown] potassium chloride 10 mEq tablet,extended release 10 meq PO DAILY hypokalemia #30 tabs 09/02/22 [Rx Last Taken 02/17/23] acetaminophen 325 mg tablet (Tylenol) 325 mg PO Q6H PRN pain 03/12/23 [History Last Taken Unknown] lidocaine 5 % topical patch 2 patch topical DAILY pain 03/12/23 [History Last Taken Unknown] Allergy/AdvReac Type Severity Reaction Status Date / Time lisinopril Allergy Angioedema Verified 03/12/23 07:18 Penicillins [PCN] Allergy Hives Verified 03/12/23 07:18 Family History Other CVA (cerebral vascular accident) Hypertension Surgical History History of arthroscopic knee surgery History of coronary artery stent placement (09/22/20) History of left heart catheterization (02/05/22) History of permanent cardiac pacemaker placement (12/15/20) Social History Smoking Status: Former smoker ROS Constitutional Constitutional: Denies chills, fatigue, fever(s) or malaise Eyes Eyes: Denies blurry vision ENT HEENT: Denies headache(s) or nasal discharge Cardiovascular Cardiovascular: Denies chest pain, dyspnea on exertion or syncope Respiratory/Chest Respiratory/Chest: Denies cough, shortness of breath at rest or shortness of breath with exertion Gastrointestinal Gastrointestinal: Reports melena; Denies abdominal pain, constipation, diarrhea, nausea or vomiting Genitourinary Genitourinary: Denies dysuria Neurologic Neurologic: Denies focal weakness, numbness or tremor(s) Psychiatric Psychiatric: Denies anxiety or depression Vital Signs Vital Signs Vital Signs: 03/12/23 07:18 03/12/23 11:09 03/12/23 13:00 Temperature 96.6 F L Temperature Source Temporal Pulse Rate 60 60 58 L Respiratory Rate 18 16 16 Blood Pressure 178/84 H 128/82 H 155/67 H Blood Pressure Mean 115 97 96 Pulse Ox 99 100 97 Oxygen Delivery Method Room Air Room Air 03/12/23 14:49 Temperature Temperature Source Pulse Rate 58 L Respiratory Rate 18 Blood Pressure 155/67 H Blood Pressure Mean 96 Pulse Ox 98 Oxygen Delivery Method Weight Weight: 255 lb 1.6 oz Body Mass Index (BMI) 31.8 Physical Exam Narrative General: Alert, Oriented x3, Cooperative, No apparent distress HEENT: Atraumatic, PERRLA, EOMI, Normocephalic Oral: Moist Mucosa Neck: Supple, No JVD Lungs: Diminished, Normal air movement, No rhonchi, No wheeze, No rales Cardiovascular: Regular rate, Regular Rhythm, Normal S1, Normal S2, No murmurs Abdomen: Soft, Non Tender, Non-Distended, No Hepato-splenomegaly Extremities: No edema, Capillary Refill Less than 3 Seconds Skin: No rashes, No breakdown Musculoskeletal: No Tenderness to Palpation of Joints or Extremities Neurological: Cranial nerves II-XII grossly intact, Motor Exam 5/5 strength throughout, Sensory exam intact to light touch and pain Psych/Mental Status: Normal Affect, Appropriate Results Lab / Micro Data 03/12/23 07:55 03/12/23 07:55 Labs: Laboratory Results - last 24 hr 03/12/23 07:55: WBC 12.1 H, RBC 3.23 L, Hgb 9.4 L, Hct 30.5 L, MCV 94.4 H, MCH 29.1, MCHC 30.8 L, RDW Std Deviation 53.2 H, RDW Coeff of Misti 15.3 H, Plt Count 165, MPV 11.9, Sodium 138, Potassium 3.8, Chloride 105, Carbon Dioxide 28.0, Anion Gap 5, BUN 20 H, Creatinine 1.21, Estim Creat Clear Calc 63.05, Est GFR (MDRD) Af Amer 75, Est GFR (MDRD) Non-Af 62, BUN/Creatinine Ratio 16.5, Glucose 121 H, Calcium 8.7, Total Bilirubin 0.70, AST 11 L, ALT 13 L, Alkaline Phosphatase 59, Total Protein 5.9 L, Albumin 3.1 L, Globulin 2.8, Albumin/Globulin Ratio 1.1, Blood Type B POSITIVE, Antibody Screen NEGATIVE Assessment & Plan Assessment/Plan (1) Acute GI bleeding: PLAN: Plan 1. Acute lower GI bleeding/GERD ? He had a colonoscopy with polypectomy at [facility] 10 days ago he had some bleeding immediately after and then it went away and it looks like it is coming back ? He is on Eliquis and aspirin which will be held ? I did discuss the case with general surgery and they recommended keeping him on a clear liquid diet and monitoring his hemoglobin if he continues to drop will be more than happy to assist with colonoscopy however if he does not drop then we can assume that the GI bleed has stopped and he could be discharged home with holding his anticoagulation. ? We will repeat an H&H tonight at around 7 PM and then a CBC in the morning ? Can resume his home PPI 2. HTN/HLD/CAD status post stent/A-fib/chronic diastolic CHF ? Will continue with his home blood pressure medications ? It does appear that his Lasix has been on hold unclear why ? We will continue to hold his Eliquis and his aspirin secondary to his GI bleed ? Resume Crestor 3. Gout ? Stable ? Continue with allopurinol, his colchicine is on hold 4. BPH ? Stable ? Continue with doxazosin DVT: SCDs 75 minutes was spent on direct patient care, including documentation as well as chart review and collaboration with colleagues Charges/Coding Visit Charges Inpatient E&M: 63746 Init Hosp L3
--- NOTE | 2023-03-12 15:42 | ED.RN ---
[facility] CALLED, ETA 3 HOURS ([id number])
--- NOTE | 2023-03-12 16:10 | ED.RN ---
CALLED [facility] [place] PT IS BEING ADMITTED HERE PER DR GUTIERREZ.
[2023-03-12 16:40] LABS: Hematocrit 26.5 % (40-54); Hemoglobin 8.3 g/dL (13.0-16.5)
--- NOTE | 2023-03-12 19:32 | EX.PCM.CON.S ---
Assessment & Plan Assessment/Plan (1) Acute GI bleeding: (2) History of colonoscopy with polypectomy: (3) Chronic anticoagulation: PLAN: Plan This is a 77-year-old male who is 10 days status post colonoscopy with polypectomy at outside facility. 1 week ago he resumed his anticoagulation but just this morning developed acute onset of melanic stools. This has resulted in acute blood loss anemia?even within the duration of his current ER stay. He also reports symptoms of lightheadedness and weakness. There have been approximately 5 stools since his evaluation began in our ER. Patient initially reported that he underwent both EGD and colonoscopy, however, we were able to obtain outside records that suggest he underwent a colonoscopy alone with polypectomy x 6. Polyps were removed from the cecum, ascending colon, and transverse colon during that procedure. Given the recency of this procedure it is likely that his bleed is to be attributed to this recent intervention. With patient initially reporting EGD as well as colonoscopy and the character of stools is being melanic I suggested that we proceed for diagnostic EGD and colonoscopy after a bowel prep tomorrow. Patient is currently receiving packed RBCs per hospitalist service after his hemoglobin has down trended and considering his involved past cardiac history. Fortunately he reports this cardiac history to be relatively stable. Patient is in agreement with this plan and I have requested a bowel prep in anticipation of tomorrow's procedure. Continue to hold Eliquis and recommend periodic vitals checks as well as repeat hemoglobin in the a.m. HPI Consult Data Date of Consult: 03/12/23 HPI Narrative Reason for Consultation: GI bleed HPI Narrative: RUSSELL KULKARNI, is a 77 M who presents to [facility] after developing melanic stools at 4am this AM. He is recently status post surveillance colonoscopy with Dr. Contreras [facility] on 03/02/2023 where he underwent polypectomy x 6. He shares that he had some minor bleeding post procedurally but this was largely self-limited. He then goes on to report that after his first dark stools this morning he presented to the ER where he is now at 5 bloody stools. He has also had some associated lightheadedness. ER workup was notable for CBC with initial hemoglobin of 9.4. A later check showed this had down trended to 8.3 after some additional bowel movements. Notably patient has been hemodynamically stable. Given that patient's care was through an outside facility transfer to that outside facility was initially arranged, however, due to a delay in bed availability he was admitted to our hospital. Patient has a history of paroxysmal atrial fibrillation and is thus prescribed Eliquis. He shares that he underwent colonoscopy at outside facility (likely [facility]) 3 years ago and resumed his Eliquis immediately after the procedure resulting in a postprocedural bleed event with that as well. He denies any personal history of diverticulitis or inflammatory bowel disease. From a cardiac standpoint patient has a history of CAD, CHF, hypertension, and unstable angina. He is status post coronary stents September 2020 and pacemaker December 2020. He reports that his left heart cath in February 2022 was negative and that he has not had any recent chest pains. He does acknowledge some exertional shortness of breath but remains relatively active. [facility] Medical History Atherosclerotic heart disease of [place] coronary artery without angina pectoris Chronic diastolic (congestive) heart failure HTN (hypertension), benign Hyperlipemia, mixed Lightheadedness Longstanding persistent atrial fibrillation Multiple premature ventricular complexes Obesity Tachy-cory syndrome Troponin I above reference range Unstable angina Home Medications cholecalciferol (vitamin D3) 50 mcg (2,000 unit) tablet 50 mcg PO DAILY SUPPLEMENT 04/13/21 [History Last Taken 02/17/23] colchicine 0.6 mg tablet 1.2 mg PO DAILY PRN gout 02/04/22 [History Last Taken 02/17/23] ferrous gluconate 324 mg (36 mg iron) tablet 324 mg PO DAILY SUPPLEMENT 02/04/22 [History Last Taken 02/17/23] folic acid 1 mg tablet 2 mg PO DAILY SUPPLEMENT 02/04/22 [History Last Taken 02/17/23] methotrexate sodium 2.5 mg tablet 15 mg PO SA arthritis 02/04/22 [History Last Taken 02/12/23] apixaban 5 mg tablet 5 mg PO BID BLOOD THINNER #90 tabs 05/14/22 [Rx Last Taken 02/17/23] doxazosin 1 mg tablet 1 mg PO DAILY BLOOD PRESSURE #90 tabs 05/14/22 [Rx Last Taken 02/17/23] furosemide 40 mg tablet 40 mg PO DAILY FLUID #90 tabs 05/14/22 [Rx Last Taken 02/17/23] pantoprazole 40 mg tablet,delayed release 40 mg PO DAILY ACID REFLUX #180 tabs 05/14/22 [Rx Last Taken 02/17/23] rosuvastatin 20 mg tablet 20 mg PO DAILY CHOLESTEROL #90 tabs 05/14/22 [Rx Last Taken 02/17/23] metoprolol succinate 50 mg tablet,extended release 24 hr 50 mg PO BID BLOOD PRESSURE #180 tabs 05/27/22 [Rx Last Taken 02/17/23] allopurinol 100 mg tablet 200 mg PO DAILY GOUT 08/31/22 [History Last Taken 02/17/23] aspirin 81 mg tablet,delayed release (Adult Low Dose Aspirin) 81 mg PO DAILY HEART HEALTH 08/31/22 [History Last Taken 02/17/23] gabapentin 100 mg capsule 100 mg PO TID NEUROPATHY 08/31/22 [History Last Taken 02/17/23] prednisone 10 mg tablet 10 mg PO DAILY PRN pain 08/31/22 [History Last Taken Unknown] potassium chloride 10 mEq tablet,extended release 10 meq PO DAILY hypokalemia #30 tabs 09/02/22 [Rx Last Taken 02/17/23] acetaminophen 325 mg tablet (Tylenol) 325 mg PO Q6H PRN pain 03/12/23 [History Last Taken Unknown] lidocaine 5 % topical patch 2 patch topical DAILY pain 03/12/23 [History Last Taken Unknown] Allergy/AdvReac Type Severity Reaction Status Date / Time lisinopril Allergy Angioedema Verified 03/12/23 07:18 Penicillins [PCN] Allergy Hives Verified 03/12/23 07:18 Family History Other CVA (cerebral vascular accident) Hypertension Surgical History History of arthroscopic knee surgery History of coronary artery stent placement (09/22/20) History of left heart catheterization (02/05/22) History of permanent cardiac pacemaker placement (12/15/20) Social History Smoking Status: Former smoker Physical Exam Const alert, oriented x3 and no apparent distress Resp normal respiratory effort GI GI Narrative: Nondistended, soft, nontender to palpation Lab / Micro Data 03/12/23 16:23 03/12/23 07:55 Labs: Laboratory Results - last 24 hr 03/12/23 07:55: WBC 12.1 H, RBC 3.23 L, Hgb 9.4 L, Hct 30.5 L, MCV 94.4 H, MCH 29.1, MCHC 30.8 L, RDW Std Deviation 53.2 H, RDW Coeff of Misti 15.3 H, Plt Count 165, MPV 11.9, Sodium 138, Potassium 3.8, Chloride 105, Carbon Dioxide 28.0, Anion Gap 5, BUN 20 H, Creatinine 1.21, Estim Creat Clear Calc 63.05, Est GFR (MDRD) Af Amer 75, Est GFR (MDRD) Non-Af 62, BUN/Creatinine Ratio 16.5, Glucose 121 H, Calcium 8.7, Total Bilirubin 0.70, AST 11 L, ALT 13 L, Alkaline Phosphatase 59, Total Protein 5.9 L, Albumin 3.1 L, Globulin 2.8, Albumin/Globulin Ratio 1.1, Blood Type B POSITIVE, Antibody Screen NEGATIVE, Crossmatch See Detail 03/12/23 16:23: Hgb 8.3 L, Hct 26.5 L
[2023-03-12] MEDS: Ondansetron 4 MG/2 ML Vial IV (21:57)
[2023-03-12] MEDS: Electrolyte Solution/Peg's 4000 ML 2000 ML PO (21:58)
[2023-03-12] MEDS: Metoprolol(XL)Succ 50 MG Tablet PO (22:12)
[2023-03-12] MEDS: Atorvastatin Calcium 40 MG Tablet PO (22:12)
[2023-03-12] MEDS: Gabapentin 100 MG Capsule PO (22:14)
[2023-03-12] MEDS: Pantoprazole Sodium 40 MG in 0.9% Normal Saline (100mL MB+) 100 ML 330 MG IV (22:46)
[2023-03-13] VITALS (14 sets, daily range): BP systolic 104–128; BP diastolic 53–65; PULSE 58–60; RESP 15–18; TEMP 36.4–36.9; O2SAT 97–100
[2023-03-13 00:19] LABS: Hematocrit 27.8 % (40-54); Hemoglobin 8.8 g/dL (13.0-16.5)
[2023-03-13] MEDS: MELATONIN 10 MG TABLET PO (02:51)
--- NOTE | 2023-03-13 05:00 | EKG12_ITS ---
Test Reason : PRE-OP Blood Pressure : / mmHG Vent. Rate : 060 BPM Atrial Rate : 394 BPM P-R Int : 000 ms QRS Dur : 138 ms QT Int : 462 ms P-R-T Axes : 000 046 128 degrees QTc Int : 462 ms Ventricular-paced rhythm Abnormal ECG When compared with ECG of 17-FEB-2023 09:41, No significant change was found Underlying atrial rhythm appears to be A-Flutter Confirmed by JOSE MANUEL ORO, JAX ([id number]), editor department SANDY RAY ([id number]) on 03/15/2023 8:46:18 A M Referred By: Hugo Romo Confirmed By:KIRIT RICHARD MD
[2023-03-13 06:05] LABS: Absolute Lymphocyte Count 2.53 X10^3/uL (0.83-4.51); Absolute Neutrophil Count 7.2 X10^3/uL (2.0-7.7); Basophil# 0.12 X10^3/uL; Basophil% 1.1 % (0-1); Eosinophil# 0.18 X10^3/uL; Eosinophils% 1.6 % (0-5); Hematocrit 24.9 % (40-54); Hemoglobin 7.8 g/dL (13.0-16.5); Lymphocyte # 2.53 X10^3/ul (0.83-4.51); Lymphocyte % 22.4 % (19-41); Mean Corp Hgb Conc 31.3 g/dL (32-36); Mean Corpuscular Hgb 28.8 pg (27.0-32.0); Mean Corpuscular Volume 91.9 fL (80-94); Mean Platelet Vol. 11.8 fl (6.2-12.0); Monocyte# 1.11 X10^3/uL; Monocyte% 9.8 % (0-10); NRBC Flagged by Analyzer 0.2 % (0-5); Neutrophil # 7.24 X10^3/uL (2.7-7.7); Platelet Count 156 K/mm3 (150-450); RBC Distribution Width CV 15.4 % (11.6-14.6); RBC Distribution Width SD 51.1 fl (35.1-43.9); Red Blood Count 2.71 M/mm3 (4.6-6.2); White Blood Count 11.3 K/mm3 (4.4-11.0)
[2023-03-13 06:10] LABS: International Normalized Ratio 1.2; Prothrombin Time (Protime)PT. 15.1 SECONDS (11.7-14.9)
[2023-03-13 06:11] LABS: Partial Thromboplast Time 36.9 Seconds (24.1-36.2)
[2023-03-13 06:32] LABS: AST(SGOT) 12 U/L (15-37); Alanine Aminotransfer ALT/SGPT 10 U/L (16-61); Albumin, Serum 2.9 g/dL (3.2-5.0); Alkaline Phosphatase 47 U/L (45-117); Anion Gap 6 (5-15); BUN 17 mg/dL (7-18); Bilirubin, Direct 0.26 mg/dL (0.00-0.30); Chloride 107 mmol/L (98-107); EST Glomerular Filtration Rate 77 mL/min (>60); Est Glom Filt Rate - Afr Amer 94 mL/min (>60); Estimated Creatinine Clearance 76.28 ml/min; Globulin 2.6 g/dL (2.2-4.2); Glucose 111 mg/dL (74-106); Potassium 3.9 mmol/L (3.5-5.1); Protein, Total 5.5 g/dL (6.4-8.2); Sodium Level 139 mmol/L (136-145)
--- NOTE | 2023-03-13 10:10 | OP.CCLET_ITS ---
03/13/2023 [facility] Re : Upper GI endoscopy procedure for [facility] This procedure was performed on Monday, March 13, 2023. My impressions and recommendations are as follows: Impressions : - No gross lesions in the duodenal bulb, in the first portion of the duodenum and in the second portion of the duodenum. No specimens collected. - A few gastric polyps. No specimens collected. - Gastritis. No specimens collected. - Small hiatal hernia. - Z-line regular, 40 cm from the incisors. No specimens collected. - The examination was otherwise normal. Recommendations : - Return [facility] to [facility] for [facility] care. - Clear liquid diet today. - Use Protonix (pantoprazole) 40 mg PO BID today. - Repeat upper endoscopy in 3 months for surveillance of multiple polyps. - Continue present medications. - Resume Eliquis (apixaban) at prior dose in 3 days. Refer to managing physician for further adjustment of therapy. My findings are described in the full procedure note, which is enclosed. If I can be of further assistance, please feel free to contact me at Doctor phone number(s): , Work: . Sincerely, Pavel Atkins MD 03/13/2023 10:09:48 AM This report has been signed electronically.
--- NOTE | 2023-03-13 10:10 | OP.EGD_ITS ---
Patient Name: Brandon Abarca Procedure Date: 03/13/2023 8:07 AM Date of : 1945 Age: 77 Procedure: Upper GI endoscopy Indications: Melena, Active gastrointestinal bleeding Providers: Pavel Atkins MD Referring MD: Ajit Romo MD Medicines: See the Anesthesia note for documentation of the administered medications Patient Profile: Refer to note in patient chart for documentation of history and physical. Complications: No immediate complications. Estimated blood loss: None. Procedure: Pre-Anesthesia Assessment: - The heart rate, respiratory rate, oxygen saturations, blood pressure, adequacy of pulmonary ventilation, and response to care were monitored throughout the procedure. After obtaining informed consent, the endoscope was passed under direct vision. Throughout the procedure, the patient's blood pressure, pulse, and oxygen saturations were monitored continuously. The Endoscope was introduced through the mouth, and advanced to the second part of duodenum. The upper GI endoscopy was accomplished without difficulty. The patient tolerated the procedure well. Scope In: 8:33:56 AM Scope Out: 8:40:47 AM Total Procedure Duration Time 0 hours 6 minutes 51 seconds Findings: No gross lesions were noted in the duodenal bulb, in the first portion of the duodenum and in the second portion of the duodenum. No biopsies or other specimens were collected for this exam. A few 5 mm semi-pedunculated polyps with no bleeding and no stigmata of recent bleeding were found on the anterior wall of the stomach. No biopsies or other specimens were collected for this exam. Estimated blood loss: none. Localized mild inflammation characterized by congestion (edema) and erythema was found on the posterior wall of the stomach. No biopsies or other specimens were collected for this exam. A small hiatal hernia was present. Estimated blood loss: none. The Z-line was regular and was found 40 cm from the incisors. No biopsies or other specimens were collected for this exam. Estimated blood loss: none. The exam was otherwise without abnormality. Impression: - No gross lesions in the duodenal bulb, in the first portion of the duodenum and in the second portion of the duodenum. No specimens collected. - A few gastric polyps. No specimens collected. - Gastritis. No specimens collected. - Small hiatal hernia. - Z-line regular, 40 cm from the incisors. No specimens collected. - The examination was otherwise normal. Recommendation: - Return patient to [facility] for ongoing care. - Clear liquid diet today. - Use Protonix (pantoprazole) 40 mg PO BID today. - Repeat upper endoscopy in 3 months for surveillance of multiple polyps. - Continue present medications. - Resume Eliquis (apixaban) at prior dose in 3 days. Refer to managing physician for further adjustment of therapy. Procedure Code(s): --- Professional --- 73629, Esophagogastroduodenoscopy, flexible, transoral; diagnostic, including collection of specimen(s) by brushing or washing, when performed (separate procedure) Diagnosis Code(s): --- Professional --- K31.7, Polyp of stomach and duodenum K29.70, Gastritis, unspecified, without bleeding K44.9, Diaphragmatic hernia without obstruction or gangrene K92.1, Melena (includes Hematochezia) K92.2, Gastrointestinal hemorrhage, unspecified CPT copyright 2021 [employer] [place] [employer]. All rights reserved. The codes documented in this report are preliminary and upon dragger review may be revised to meet current compliance requirements. Pavel Atkins MD 03/13/2023 10:09:48 AM This report has been signed electronically. Number of Addenda: 0 Note Initiated On: 03/13/2023 8:07 AM
--- NOTE | 2023-03-13 10:27 | OP.CCLET_ITS ---
03/13/2023 [facility] Re : Colonoscopy procedure for [facility] This procedure was performed on Monday, March 13, 2023. My impressions and recommendations are as follows: Impressions : - Blood in the entire examined colon. - Post-polypectomy scar at the hepatic flexure. No specimens collected. - Three 5 to 15 mm, non-bleeding polyps in the descending colon and at the hepatic flexure. No specimens collected. - The distal rectum and anal verge are normal on retroflexion view. - One 20 mm polyp in the cecum. No specimens collected. Recommendations : - Return [facility] to [facility] for ongoing care. - Clear liquid diet today. - Resume Eliquis (apixaban) at prior dose in 3 days. Refer to managing physician for further adjustment of therapy. - Repeat colonoscopy in 3 months for surveillance of multiple polyps. My findings are described in the full procedure note, which is enclosed. If I can be of further assistance, please feel free to contact me at Doctor phone number(s): , Work: . Sincerely, Pavel Atkins MD 03/13/2023 10:27:02 AM This report has been signed electronically.
--- NOTE | 2023-03-13 10:27 | OP.COLON_ITS ---
Patient Name: Brandon Abarca Procedure Date: 03/13/2023 8:43 AM Date of : 1945 Age: 77 Procedure: Colonoscopy Indications: Melena, Treatment of bleeding from polypectomy site Providers: Pavel Atkins MD Referring MD: Ajit Romo MD Medicines: See the Anesthesia note for documentation of the administered medications Patient Profile: Refer to note in patient chart for documentation of history and physical. Last Colonoscopy: 11 days ago. Complications: No immediate complications. Estimated blood loss: None. Procedure: Pre-Anesthesia Assessment: - The heart rate, respiratory rate, oxygen saturations, blood pressure, adequacy of pulmonary ventilation, and response to care were monitored throughout the procedure. - The heart rate, respiratory rate, oxygen saturations, blood pressure, adequacy of pulmonary ventilation, and response to care were monitored throughout the procedure. After I obtained informed consent, the scope was passed under direct vision. Throughout the procedure, the patient's blood pressure, pulse, and oxygen saturations were monitored continuously. The Colonoscope was introduced through the anus and advanced to the cecum, identified by its appearance. The colonoscopy was somewhat difficult due to excessive bleeding and significant looping. Successful completion of the procedure was aided by changing the patient to a supine position, withdrawing and reinserting the scope and lavage. The patient tolerated the procedure fairly well. The quality of the bowel preparation was adequate to identify polyps greater than 5 mm in size. Scope In: 8:44:37 AM Scope Withdrawal Time 0 hours 34 minutes 17 seconds Scope Out: 9:48:22 AM Total Procedure Duration Time 1 hour 3 minutes 45 seconds Findings: The perianal and digital rectal examinations were normal. Pertinent negatives include normal sphincter tone. Clotted blood was found in the entire colon. Lavage of the area was performed using a large amount of normal saline, resulting in clearance with adequate visualization. prior hemostatic clip placement at polypectomy site, No biopsies or other specimens were collected for this exam. Estimated blood loss: none. A 3 mm post polypectomy scar was found at the hepatic flexure. The scar tissue was healthy in appearance. No biopsies or other specimens were collected for this exam. Estimated blood loss: none. Three semi-sessile, non-bleeding polyps were found in the descending colon and hepatic flexure. The polyps were 5 to 15 mm in size. No biopsies or other specimens were collected for this exam. Estimated blood loss: none. The retroflexed view of the distal rectum and anal verge was normal and showed no anal or rectal abnormalities. No biopsies or other specimens were collected for this exam. A 20 mm polyp was found in the cecum. The polyp was sessile. No biopsies or other specimens were collected for this exam. Estimated blood loss: none. Impression: - Blood in the entire examined colon. - Post-polypectomy scar at the hepatic flexure. No specimens collected. - Three 5 to 15 mm, non-bleeding polyps in the descending colon and at the hepatic flexure. No specimens collected. - The distal rectum and anal verge are normal on retroflexion view. - One 20 mm polyp in the cecum. No specimens collected. Recommendation: - Return patient to [facility] for ongoing care. - Clear liquid diet today. - Resume Eliquis (apixaban) at prior dose in 3 days. Refer to managing physician for further adjustment of therapy. - Repeat colonoscopy in 3 months for surveillance of multiple polyps. Procedure Code(s): --- Professional --- 94224, Colonoscopy, flexible; diagnostic, including collection of specimen(s) by brushing or washing, when performed (separate procedure) Diagnosis Code(s): --- Professional --- K92.2, Gastrointestinal hemorrhage, unspecified Z98.890, Other specified postprocedural states D12.4, Benign neoplasm of descending colon D12.3, Benign neoplasm of transverse colon (hepatic flexure or splenic flexure) D12.0, Benign neoplasm of cecum K92.1, Melena (includes Hematochezia) K91.840, Postprocedural hemorrhage of a digestive system organ or structure following a digestive system procedure CPT copyright 2021 [employer]. All rights reserved. The codes documented in this report are preliminary and upon casing trimmer review may be revised to meet current compliance requirements. Pavel Atkins MD 03/13/2023 10:27:02 AM This report has been signed electronically. Number of Addenda: 0 Note Initiated On: 03/13/2023 8:43 AM
[2023-03-13] MEDS: Pantoprazole Sodium 40 MG in 0.9% Normal Saline (100mL MB+) 100 ML 330 MG IV (10:37)
[2023-03-13] MEDS: Doxazosin 1 MG Tablet PO (10:40)
[2023-03-13] MEDS: Allopurinol 100 MG Tablet 200 MG PO (10:40)
[2023-03-13] MEDS: Folic Acid 1 MG Tablet 2 MG PO (10:40)
--- NOTE | 2023-03-13 10:56 | NURSING ---
1045-just returned from scope. dr galarza in w/pt and visitor
--- NOTE | 2023-03-13 12:03 | PCM.PN.HOSP ---
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 There is no evidence of bleeding in the upper GI tract. Objective Data Objective Data Vital Signs: Vital Signs Temp Pulse Resp BP Pulse Ox O2 Del Method O2 Flow Rate 97.8 F 58 L 16 121/60 H 100 Room Air 100 03/13/23 10:45 03/13/23 10:45 03/13/23 10:45 03/13/23 10:45 03/13/23 10:45 03/13/23 10:45 03/13/23 10:00 Oxygen Flow Rate (L/min) 100 Oxygen Delivery Method Room Air Weight: 111.629 kg Body Mass Index (BMI) 30.7 Intake & Output: Intake and Output for Last 24 Hours 03/11/23 03/12/23 03/13/23 23:59 23:59 23:59 Intake Total 111 / 111 110 / 110 Balance 111 / 111 110 / 110 Lab / Micro Data 03/13/23 05:32 03/13/23 05:32 Labs: Laboratory Results - last 24 hr 03/12/23 00:10: Hgb 8.8 L, Hct 27.8 L 03/12/23 07:55: Crossmatch See Detail 03/12/23 16:23: Hgb 8.3 L, Hct 26.5 L 03/13/23 05:32: WBC 11.3 H, RBC 2.71 L, Hgb 7.8 L, Hct 24.9 L, MCV 91.9, MCH 28.8, MCHC 31.3 L, RDW Std Deviation 51.1 H, RDW Coeff of Misti 15.4 H, Plt Count 156, MPV 11.8, Immature Gran % (Auto) 1.100 H, Neut % (Auto) 64.0, Lymph % (Auto) 22.4, [place] % (Auto) 9.8, Eos % (Auto) 1.6, Baso % (Auto) 1.1 H, Absolute Neuts (auto) 7.2, Absolute Lymphs (auto) 2.53, Nucleated RBC % 0.2, PT 15.1 H, INR 1.2, APTT 36.9 H, Sodium 139, Potassium 3.9, Chloride 107, Carbon Dioxide 26.0, Anion Gap 6, BUN 17, Creatinine 1.00, Estim Creat Clear Calc 76.28, Est GFR (MDRD) Af Amer 94, Est GFR (MDRD) Non-Af 77, BUN/Creatinine Ratio 17.0, Glucose 111 H, Calcium 8.0 L, Total Bilirubin 1.00, Direct Bilirubin 0.26, AST 12 L, ALT 10 L, Alkaline Phosphatase 47, Total Protein 5.5 L, Albumin 2.9 L, Globulin 2.6 Physical Exam Const alert, oriented x3, no apparent distress, average body habitus and healthy appearing General Appearance: cooperative, well kempt and well developed Orientation / Consciousness: awake, oriented to person, oriented to place and oriented to time HEENT normocephalic and moist oral mucous membranes Eyes PERRL, EOMs intact bilaterally and conjunctivae normal Neck supple, no JVD, thyroid normal and no carotid bruits General: trachea midline Resp normal respiratory effort, no retractions, no use of accessory muscles and clear to auscultation bilaterally Auscultation: Negative for rales, rhonchi or wheezes Cardio regular rate, regular rhythm, S1 normal heart sound, S2 normal heart sound, no murmurs, no rub and no gallops GI normal to inspection, nondistended, normoactive bowel sounds, soft to palpation, non-tender and non-distended Extremity no clubbing, cyanosis or edema Skin no rashes or lesions noted General Skin Exam: no breakdown Neuro oriented x3, CN's II-XII intact bilaterally, moves all extremities, no focal motor deficits and no sensory deficits noted Sensorium / Orientation: awake, alert, oriented to person, oriented to place and oriented to time Speech: speech normal Psych affect normal Assessment & Plan Assessment/Plan (1) Acute GI bleeding: PLAN: Plan 1. Acute lower GI bleed-most probably from previous polypectomy sites and colon, patient is to hold his Eliquis, I will be repeating his hemoglobin this afternoon, hemoglobin this morning was 7.8. #2 multiple colon polyps-patient states he is going to follow-up with Dr. Contreras in [place], he has an upcoming appointment next week. #3 atrial fibrillation-patient has a paced rhythm-again I will advise the patient's to stay off his Eliquis for now #4 acute blood loss anemia requiring blood transfusion believed to have come from previous polypectomy sites in the colon-again hemoglobin will be rechecked this afternoon Total clinical time spent by myself addressing the patient's medical issues, reviewing all of his data, and collaborating with patient's care team: 35 minutes Charges/Coding Visit Charges Inpatient E&M: 34811 Subs Hosp L2
[2023-03-13 14:04] LABS: Hematocrit 21.8 % (40-54)
[2023-03-13] MEDS: Gabapentin 100 MG Capsule PO ×2 (14:59→22:55)
[2023-03-13] MEDS: Acetaminophen 325 MG Tablet 650 MG PO (16:05)
[2023-03-13] MEDS: Metoprolol(XL)Succ 50 MG Tablet PO (22:54)
[2023-03-13] MEDS: Atorvastatin Calcium 40 MG Tablet PO (22:55)
[2023-03-14] VITALS (7 sets, daily range): BP systolic 115–133; BP diastolic 59–68; PULSE 58–60; RESP 16; TEMP 36.6–37.3; O2SAT 97–100
[2023-03-14] MEDS: Gabapentin 100 MG Capsule PO ×3 (05:34→22:18)
[2023-03-14 06:18] LABS: Hematocrit 23.4 % (40-54); Hemoglobin 7.4 g/dL (13.0-16.5); Mean Corp Hgb Conc 31.6 g/dL (32-36); Mean Corpuscular Hgb 29.8 pg (27.0-32.0); Mean Corpuscular Volume 94.4 fL (80-94); Mean Platelet Vol. 11.9 fl (6.2-12.0); Platelet Count 130 K/mm3 (150-450); RBC Distribution Width CV 15.2 % (11.6-14.6); RBC Distribution Width SD 52.1 fl (35.1-43.9); Red Blood Count 2.48 M/mm3 (4.6-6.2); White Blood Count 7.6 K/mm3 (4.4-11.0)
[2023-03-14] MEDS: Folic Acid 1 MG Tablet 2 MG PO (09:01)
[2023-03-14] MEDS: Metoprolol(XL)Succ 50 MG Tablet PO ×2 (09:02→22:18)
[2023-03-14] MEDS: Allopurinol 100 MG Tablet 200 MG PO (09:02)
[2023-03-14] MEDS: Doxazosin 1 MG Tablet PO (09:02)
[2023-03-14] MEDS: Pantoprazole Sodium 40 MG in 0.9% Normal Saline (100mL MB+) 100 ML 330 MG IV (09:07)
--- NOTE | 2023-03-14 11:28 | PCM.PN.SRG ---
Subjective Subjective Patient seen and examined during AM rounds. He reports that he still has some mild lightheadedness when he gets up to go to the bathroom, but overall this is improved. He also reports that he has had some gas overnight but no further bowel movements and has not noticed any bleeding. Objective Data Objective Data Vital Signs: Vital Signs Temp Pulse Resp BP Pulse Ox O2 Del Method O2 Flow Rate 99.1 F 60 16 133/60 H 100 Room Air 100 03/14/23 09:00 03/14/23 09:02 03/14/23 09:00 03/14/23 09:02 03/14/23 09:00 03/14/23 09:00 03/13/23 10:00 Oxygen Flow Rate (L/min) 100 Oxygen Delivery Method Room Air Weight: 246 lb 1.597 oz Body Mass Index (BMI) 30.7 Intake & Output: Intake and Output for Last 24 Hours 03/12/23 03/13/23 03/14/23 23:59 23:59 23:59 Intake Total 111 / 111 111 / 111 110 / 110 Balance 111 / 111 111 / 111 110 / 110 Lab / Micro Data 03/14/23 04:51 03/13/23 05:32 Labs: Laboratory Results - last 24 hr 03/12/23 07:55: Crossmatch See Detail 03/12/23 08:00: Crossmatch See Detail 03/13/23 13:49: Hgb 7.0 L, Hct 21.8 L 03/14/23 04:51: WBC 7.6, RBC 2.48 L, Hgb 7.4 L, Hct 23.4 L, MCV 94.4 H, MCH 29.8, MCHC 31.6 L, RDW Std Deviation 52.1 H, RDW Coeff of Misti 15.2 H, Plt Count 130 L, MPV 11.9 Physical Exam Const oriented x3 and no apparent distress Resp normal respiratory effort GI GI Narrative: Nondistended, soft, nontender to palpation x 4 quadrants Assessment & Plan Assessment/Plan (1) Acute GI bleeding: (2) History of colonoscopy with polypectomy: (3) Chronic anticoagulation: PLAN: Plan This is a 77-year-old male who is 10 days status post colonoscopy with polypectomy at outside facility. 1 week ago he resumed his anticoagulation but developed melanic stools and became symptomatic from some acute blood loss anemia. Therefore he was taken to the endoscopy suite yesterday, 03/13/2023 for upper and lower endoscopy. No active bleeding was found, but there were a number of large clots within the colon that I evacuated and I was able to identify at least 3 of the patient's 6 prior polypectomy sites that were nonbleeding. He was transfused overnight with still an inappropriate rise in his hemoglobin, however, I would question whether or not his hemoglobin had reached his full cyndy prior to transfusion as he has not had any further evidence of blood loss on the floor. Given his cardiac history and persistent symptoms, would suggest considering an additional unit of transfusion and then rechecking his hemoglobin. If he remains stable through this check could advance his diet and monitor for tolerance. Continue to hold Eliquis for now Charges/Coding Visit Charges Inpatient E&M: 36974 Subs Hosp L2
--- NOTE | 2023-03-14 13:11 | PN_ITS ---
Subjective Subjective Patient seen and examined. His son and daughter were by his bedside. He had no active complaints. He had not had any more rectal bleeding. Review of systems otherwise negative. Hemoglobin today is down to 7.4. Objective Data Objective Data Vital Signs: Vital Signs Temp Pulse Resp BP Pulse Ox O2 Del Method O2 Flow Rate 98.4 F 59 L 16 116/60 98 Room Air 100 03/14/23 12:00 03/14/23 12:00 03/14/23 12:00 03/14/23 12:00 03/14/23 12:00 03/14/23 12:00 03/13/23 10:00 Oxygen Flow Rate (L/min) 100 Oxygen Delivery Method Room Air Weight: 246 lb 1.597 oz Body Mass Index (BMI) 30.7 Intake & Output: Intake and Output for Last 24 Hours 03/12/23 03/13/23 03/14/23 23:59 23:59 23:59 Intake Total 111 / 111 111 / 111 410 / 410 Balance 111 / 111 111 / 111 410 / 410 Lab / Micro Data 03/14/23 04:51 03/13/23 05:32 Labs: Laboratory Results - last 24 hr 03/12/23 07:55: Crossmatch See Detail 03/12/23 08:00: Crossmatch See Detail 03/13/23 13:49: Hgb 7.0 L, Hct 21.8 L 03/14/23 04:51: WBC 7.6, RBC 2.48 L, Hgb 7.4 L, Hct 23.4 L, MCV 94.4 H, MCH 29.8, MCHC 31.6 L, RDW Std Deviation 52.1 H, RDW Coeff of Misti 15.2 H, Plt Count 130 L, MPV 11.9 Physical Exam Const alert, oriented x3 and no apparent distress General Appearance: cooperative and well developed HEENT head/scalp atraumatic, moist oral mucous membranes and oropharynx normal Eyes EOMs intact bilaterally Neck no lymphadenopathy and supple Lymph Lymphatic: no lymphadenopathy noted and no lymphedema noted Resp normal respiratory effort, normal air movement and clear to auscultation bilaterally Cardio regular rate, regular rhythm, S1 normal heart sound, S2 normal heart sound and no murmurs GI normal to inspection, nondistended, normoactive bowel sounds, soft to palpation and non-tender Extremity no clubbing, cyanosis or edema General Extremity: no tenderness to palpation of joints or extremities Skin General Skin Exam: no breakdown Neuro CN's II-XII intact bilaterally, no focal motor deficits, no sensory deficits noted and deep tendon reflexes 2+ bilaterally Motor Exam: strength 5/5 throughout and general weakness Psych thought process normal, cooperative and affect normal Appearance: appropriate Assessment & Plan Assessment/Plan (1) Acute GI bleeding: (2) Anemia: PLAN: Plan #Acute on chronic anemia due to lower GI bleed * eliquis on hold. Didnt have any recurrent bleeding overnight * had EGD and colonoscopy during this admission; EGD showed no gross lesions in the duodenal bulb showed a few gastric polyps with gastritis. Colonoscopy showed blood in the entire examined colon with post polypectomy scar at the hepatic flexure and three 5 to 15 mm nonbleeding polyps in the descending colon at the hepatic flexure with no specimens collected. There was one 20 mm polyp in the cecum. * Hemoglobin is 7.4 today. Being transfused another unit of packed red cells. General surgery. * Did have recent colonoscopy where he had multiple polyps removed and the concern is that this bleeding could have been from the polypectomy sites. * Does take oral iron supplements and his PCP apparently recently told him to stop taking it but subsequently informed him that he had resumed taking it according to his daughter. To put back on oral iron on discharge. * #A-fib: Eliquis currently on hold. Decision has to be made about whether to resume it prior to discharge or otherwise. #History of gout: On colchicine #Heart failure preserved ejection fraction: On furosemide which is on hold. DVT prophylaxis: SCDs Charges/Coding Visit Charges Inpatient E&M: 66144 Subs Hosp L2
--- NOTE | 2023-03-14 14:15 | CASEMGMT ---
IZABELA FRANCOIS Readmission Note Previous Admission: 02/17/23-02/18/23 Diagnosis: Chest discomfort DC Disposition: Home, no med changes Current Admission: Admitted 03/12/23 Current Diagnosis: Lower GIB Pt had colonoscopy on 03/01/23 and states he was told to hold his eliquis for 3 days. Pt did this and was admitted with lower GIB. Pt reports he has been taking all medications as ordered. He also had a PCP appt on 03/02/23 and was told to stop his iron. Pt dtr called and this was in error and pt was not supposed to have stopped taking it. Pt had EGD and colonoscopy when admitted and no active bleeding found. Hgb 7.8 today and pt receiving blood products, eliquis on hold. Pt denies having any homegoing needs, he is up SBA in room. IZABELA FRANCOIS to follow. DC Plan: Home
[2023-03-14 14:48] LABS: Hematocrit 25.1 % (40-54); Hemoglobin 8.3 g/dL (13.0-16.5)
[2023-03-14] MEDS: Atorvastatin Calcium 40 MG Tablet PO (22:17)
[2023-03-14] MEDS: MELATONIN 10 MG TABLET PO (22:21)
[2023-03-15 05:00] VITALS: BP 119/61; PULSE 60; RESP 16; TEMP 36.8; O2SAT 98
[2023-03-15] MEDS: Gabapentin 100 MG Capsule PO (05:26)
--- NOTE | 2023-03-15 07:54 | PCM.PN.SRG ---
Subjective Subjective Patient seen and examined during AM rounds. He is found resting in bed, but reports that he had a difficult night. By this he explains he does not sleep at all. He states that he had several times where he felt like he may have to use the bathroom but it was simply gas. He denies any observation of bleeding. He also reports that his symptoms of lightheadedness have improved. Objective Data Objective Data Vital Signs: Vital Signs Temp Pulse Resp BP Pulse Ox O2 Del Method O2 Flow Rate 98.3 F 60 16 119/61 98 Room Air 100 03/15/23 05:00 03/15/23 05:00 03/15/23 05:00 03/15/23 05:00 03/15/23 05:00 03/15/23 05:00 03/13/23 10:00 Oxygen Flow Rate (L/min) 100 Oxygen Delivery Method Room Air Weight: 246 lb 1.597 oz Body Mass Index (BMI) 30.7 Intake & Output: Intake and Output for Last 24 Hours 03/13/23 03/14/23 03/15/23 23:59 23:59 23:59 Intake Total 111 / 111 1160 / 1160 Balance 111 / 111 1160 / 1160 Lab / Micro Data 03/14/23 14:40 03/13/23 05:32 Labs: Laboratory Results - last 24 hr 03/12/23 08:00: Crossmatch See Detail 03/14/23 14:40: Hgb 8.3 L, Hct 25.1 L Physical Exam Const oriented x3 and no apparent distress Resp normal respiratory effort GI GI Narrative: Nondistended, soft, nontender to palpation x 4 quadrants Assessment & Plan Assessment/Plan (1) Acute GI bleeding: (2) History of colonoscopy with polypectomy: (3) Chronic anticoagulation: PLAN: Plan This is a 77-year-old male who is 13 days status post colonoscopy with polypectomy at outside facility. 1 week ago he resumed his anticoagulation but developed melanic stools and became symptomatic from some acute blood loss anemia. Therefore he was taken to the endoscopy suite 03/13/2023 for upper and lower endoscopy. No active bleeding was found, but there were a number of large clots within the colon that I evacuated and I was able to identify at least 3 of the patient's 6 prior polypectomy sites that were nonbleeding. He was transfused yesterday after his hemoglobin failed to respond appropriately to prior transfusion and he remained symptomatic. His hemoglobin yesterday afternoon, however, did show an appropriate rise and his diet was advanced. His labs are pending for this morning, but if these demonstrate stability or further rebound I believe he would be clinically well enough for discharge to home. Would tentatively plan for another 24-hour hold on Eliquis before resuming. Patient looking to follow-up with Dr. Contreras as an outpatient. Charges/Coding Visit Charges Inpatient E&M: 85019 Subs Hosp L2
[2023-03-15 08:11] VITALS: BP 116/60; PULSE 60; RESP 16; TEMP 36.6; O2SAT 97
[2023-03-15] MEDS: Allopurinol 100 MG Tablet 200 MG PO (08:20)
[2023-03-15] MEDS: Folic Acid 1 MG Tablet 2 MG PO (08:20)
[2023-03-15 08:36] LABS: Absolute Lymphocyte Count 1.62 X10^3/uL (0.83-4.51); Absolute Neutrophil Count 4.7 X10^3/uL (2.0-7.7); Basophil# 0.04 X10^3/uL; Basophil% 0.5 % (0-1); Eosinophil# 0.16 X10^3/uL; Eosinophils% 2.1 % (0-5); Hematocrit 27.1 % (40-54); Hemoglobin 8.6 g/dL (13.0-16.5); Lymphocyte # 1.62 X10^3/ul (0.83-4.51); Lymphocyte % 21.1 % (19-41); Mean Corp Hgb Conc 31.7 g/dL (32-36); Mean Corpuscular Hgb 29.8 pg (27.0-32.0); Mean Corpuscular Volume 93.8 fL (80-94); Mean Platelet Vol. 11.6 fl (6.2-12.0); Monocyte# 1.06 X10^3/uL; Monocyte% 13.8 % (0-10); NRBC Flagged by Analyzer 0 % (0-5); Neutrophil # 4.72 X10^3/uL (2.7-7.7); Neutrophil % 61.7 % (47-70); Platelet Count 135 K/mm3 (150-450); RBC Distribution Width CV 15.5 % (11.6-14.6); Red Blood Count 2.89 M/mm3 (4.6-6.2); White Blood Count 7.7 K/mm3 (4.4-11.0)
[2023-03-15 09:10] LABS: Anion Gap 5 (5-15); BUN 12 mg/dL (7-18); BUN/Creat Ratio 11.2 RATIO (10-20); Calcium,Total 8.6 mg/dL (8.5-10.1); Chloride 107 mmol/L (98-107); Creatinine, Serum 1.07 mg/dL (0.70-1.30); EST Glomerular Filtration Rate 72 mL/min (>60); Est Glom Filt Rate - Afr Amer 87 mL/min (>60); Estimated Creatinine Clearance 71.29 ml/min; Glucose 104 mg/dL (74-106); Potassium 4.1 mmol/L (3.5-5.1); Sodium Level 138 mmol/L (136-145)
[2023-03-15] MEDS: 0.9% Saline Lock 10 ML Syringe IV (09:29)
[2023-03-15] MEDS: Acetaminophen 325 MG Tablet 650 MG PO (09:29)
[2023-03-15 09:30] VITALS: BP 116/60; PULSE 60
[2023-03-15] MEDS: Doxazosin 1 MG Tablet PO (09:30)
[2023-03-15] MEDS: Metoprolol(XL)Succ 50 MG Tablet PO (09:30)
[2023-03-15] MEDS: Pantoprazole Sodium 40 MG in 0.9% Normal Saline (100mL MB+) 100 ML 330 MG IV (09:30)
--- NOTE | 2023-03-15 12:40 | DS.PCM_ITS ---
Providers Date of Admission: 03/12/23 Date of Discharge: 03/15/23 Primary Care Physician: [facility] Consultations 03/12/23 19:56 Consult: General Surgery Routine Consulting Provider: Pavel Atkins Reason for Consult: GI bleed EMERGENT Consult: No MD Notified: Yes Date Notified: 03/12/23 Time Notified: 17:42 Method of Notification: Verbal Reason For Visit: LOWER GI BLEED Diagnosis Discharge Diagnosis (1) Acute GI bleeding: Status: Acute Code(s): K92.2 - Gastrointestinal hemorrhage, unspecified (2) History of colonoscopy with polypectomy: Status: Acute Code(s): Z98.890 - Other specified postprocedural states; Z86.010 - Personal history of colonic polyps (3) Chronic anticoagulation: Status: Acute Code(s): 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 Didnt have any recurrent bleeding overnight * had EGD and colonoscopy during this admission; EGD showed no gross lesions in the duodenal bulb showed a few gastric polyps with gastritis. Colonoscopy showed blood in the entire examined colon with post polypectomy scar at the hepatic flexure and three 5 to 15 mm nonbleeding polyps in the descending c olon at the hepatic flexure with no specimens collected. There was one 20 mm polyp in the cecum. * Hemoglobin is 7.4 today. Being transfused another unit of packed red cells. General surgery. * Did have recent colonoscopy where he had multiple polyps removed and the concern is that this bleeding could have been from the polypectomy sites. * Does take oral iron supplements and his PCP apparently recently told him to stop taking it but subsequently informed him that he had resumed taking it according to his daughter. To put back on oral iron on discharge. * #A-fib: Eliquis currently on hold. Decision has to be made about whether to resume it prior to discharge or otherwise. #History of gout: On colchicine #Heart failure preserved ejection fraction: On furosemide which is on hold. DVT prophylaxis: SCDs Medications at Discharge Home Medications cholecalciferol (vitamin D3) 50 mcg (2,000 unit) tablet 50 mcg PO DAILY SUPPLE MENT 04/13/21 colchicine 0.6 mg tablet 1.2 mg PO DAILY PRN gout 02/04/22 ferrous gluconate 324 mg (36 mg iron) tablet 324 mg PO DAILY SUPPLEMENT 02/04/22 folic acid 1 mg tablet 2 mg PO DAILY SUPPLEMENT 02/04/22 methotrexate sodium 2.5 mg tablet 15 mg PO SA arthritis 02/04/22 apixaban 5 mg tablet 5 mg PO BID BLOOD THINNER #90 tabs 05/14/22 doxazosin 1 mg tablet 1 mg PO DAILY BLOOD PRESSURE #90 tabs 05/14/22 furosemide 40 mg tablet 40 mg PO DAILY FLUID #90 tabs 05/14/22 pantoprazole 40 mg tablet,delayed release 40 mg PO DAILY ACID REFLUX #180 tabs 05/14/22 rosuvastatin 20 mg tablet 20 mg PO DAILY CHOLESTEROL #90 tabs 05/14/22 metoprolol succinate 50 mg tablet,extended release 24 hr 50 mg PO BID BLOOD PRESSURE #180 tabs 05/27/22 allopurinol 100 mg tablet 200 mg PO DAILY GOUT 08/31/22 gabapentin 100 mg capsule 100 mg PO TID NEUROPATHY 08/31/22 prednisone 10 mg tablet 10 mg PO DAILY PRN pain 08/31/22 potassium chloride 10 mEq tablet,extended release 10 meq PO DAILY hypokalemia #30 tabs 09/02/22 acetaminophen 325 mg tablet (Tylenol) 325 mg PO Q6H PRN pain 03/12/23 lidocaine 5 % topical patch 2 patch topical DAILY pain 03/12/23 aspirin 81 mg chewable tablet 81 mg PO DAILY #30 tabs 03/15/23 Hospital Course Operations None Procedures Colonoscopy Summary of Care Provided Minutes Spent on Discharge: 55 Hospital Course: Patient is a 77-year-old male with a past medical history as outlined was admitted through the ED on 03/12/2023 with a complaint of lower GI bleeding. He had had a colonoscopy at [facility] at the end of February and had a few polyps removed. Patient was on Eliquis and aspirin. A few days after the colonoscopy he noted some rectal bleeding but it went away. Subsequently rectal bleeding recurred and worsened on the morning of admission so he came back to the ED. Hemoglobin was 9.4. General surgery was consulted. Eliquis and aspirin were held. He had EGD and colonoscopy which showed no evidence of bleeding but showed large clots within the colon which were evacuated and and at least 3 of the patient's 6 prior polypectomy sites that were nonbleeding. Patient was transfused with packed red blood cells as his hemoglobin was not coming up. At time of discharge hemoglobin was 8.6. Patient's diet was resumed and he felt much better. He was discharged home on 03/15/2023. He was counseled to hold his Eliquis for another 24 hours before he resumed taking it. He is to follow-up with his primary care doctor and general surgery within 1 to 2 weeks. Patient seen and examined prior to discharge. He had no complaints and had an uneventful night. Review of systems otherwise negative. Labs and vitals reviewed. Home medication reviewed and reconciled. Physical Exam Const alert, oriented x3, no apparent distress, average body habitus and healthy appearing General Appearance: cooperative, comfortable, well kempt and well developed Orientation / Consciousness: awake HEENT normocephalic, head/scalp atraumatic, hearing grossly normal bilaterally, moist oral mucous membranes and oropharynx normal Mouth: oral and palatal mucosa normal Eyes PERRL, EOMs intact bilaterally and conjunctivae normal Neck no lymphadenopathy, supple, no JVD, thyroid normal and no carotid bruits General: trachea midline Lymph Lymphatic: no lymphadenopathy noted and no lymphedema noted Resp normal respiratory effort, normal air movement, no retractions, no use of access ory muscles and clear to auscultation bilaterally Cardio regular rate, regular rhythm, S1 normal heart sound, S2 normal heart sound, no murmurs, no rub and no gallops GI normal to inspection, nondistended, normoactive bowel sounds, soft to palpation, non-tender and non-distended Extremity no clubbing, cyanosis or edema General Extremity: no tenderness to palpation of joints or extremities Skin no rashes or lesions noted General Skin Exam: no breakdown Neuro oriented x3, CN's II-XII intact bilaterally, moves all extremities, no focal motor deficits, no sensory deficits noted and deep tendon reflexes 2+ bilaterally Sensorium / Orientation: awake, alert, oriented to person, oriented to place and oriented to time Speech: speech normal Motor Exam: strength 5/5 throughout and general weakness Psych thought process normal, cooperative and affect normal Appearance: appropriate Weight / BMI Weight Weight: 246 lb 1.597 oz Body Mass Index (BMI) 30.7 ABG / Lab / Microbiology Data 03/15/23 07:42 03/15/23 07:42 Laboratory: Laboratory Results - last 24 hr 03/12/23 08:00: Crossmatch See Detail 03/14/23 14:40: Hgb 8.3 L, Hct 25.1 L 03/15/23 07:42: WBC 7.7, RBC 2.89 L, Hgb 8.6 L, Hct 27.1 L, MCV 93.8, MCH 29.8, MCHC 31.7 L, RDW Std Deviation 53.0 H, RDW Coeff of Misti 15.5 H, Plt Count 135 L, MPV 11.6, Immature Gran % (Auto) 0.800, Neut % (Auto) 61.7, Lymph % (Auto) 21.1, [place] % (Auto) 13.8 H, Eos % (Auto) 2.1, Baso % (Auto) 0.5, Absolute Neuts (auto) 4.7, Absolute Lymphs (auto) 1.62, Nucleated RBC % 0, Sodium 138, Potassium 4.1, Chloride 107, Carbon Dioxide 26.0, Anion Gap 5, BUN 12, Creatinine 1.07, Estim Creat Clear Calc 71.29, Est GFR (MDRD) Af Amer 87, Est GFR (MDRD) Non-Af 72, BUN/Creatinine Ratio 11.2, Glucose 104, Calcium 8.6 D/C Instructions Discharge Diet: Low fat / Low cholesterol Weight Bearing Status: Weight bearing as tolerated Call your doctor if you observe: Fever of 101 or Higher, Shortness of breath, Dizziness, Swelling in the ankles, Chest pain, Increased palpitations (irregular heartbeat) and - (rectal bleeding) Meaningful Use Info Meaningful Use Diagnoses (Choose all that apply): None applicable Discharge Plan Admission Admit Date/Time: 03/12/23 14:33 Primary Reason for Your Visit: lower GI bleed Attending Provider: Anh Salinas Primary Care Provider: [facility] Consulting Providers: Pavel Atkins; Arsen Quan; Evan Burns Instructions Patient Instructions: ED Lower GI Bleeding (Stable) Additional Instructions / Restrictions: Please resume Eliquis on 03/16/2023. Discharge Orders/Prescriptions Prescriptions: New aspirin 81 mg tablet,chewable 81 mg PO DAILY Qty: 30 2RF Continued gabapentin 100 mg capsule 100 mg PO TID cholecalciferol (vitamin D3) 50 mcg (2,000 unit) Tablet 50 mcg PO DAILY allopurinol 100 mg tablet 200 mg PO DAILY methotrexate sodium 2.5 mg Tablet 15 mg PO SA Hold Instructions: MD Ordered folic acid 1 mg tablet 2 mg PO DAILY colchicine 0.6 mg tablet 1.2 mg PO DAILY PRN (Reason: gout) Hold Instructions: MD Ordered ferrous gluconate 324 mg (36 mg iron) Tablet 324 mg PO DAILY Hold Instructions: MD Ordered prednisone 10 mg tablet 10 mg PO DAILY PRN (Reason: pain ) Hold Instructions: MD Ordered lidocaine 5 % adhesive patch,medicated 2 patch topical DAILY Rx Instructions: leave on most painful area for up to 12 hrs acetaminophen [Tylenol] 325 mg tablet 325 mg PO Q6H PRN (Reason: pain) apixaban 5 mg tablet 5 mg PO BID Qty: 90 3RF doxazosin 1 mg tablet 1 mg PO DAILY Qty: 90 3RF furosemide 40 mg tablet 40 mg PO DAILY Qty: 90 3RF Hold Instructions: MD Ordered rosuvastatin 20 mg tablet 20 mg PO DAILY Qty: 90 3RF pantoprazole 40 mg tablet,delayed release (DR/EC) 40 mg PO DAILY Qty: 180 3RF metoprolol succinate 50 mg tablet extended release 24 hr 50 mg PO BID Qty: 180 3RF potassium chloride 10 mEq tablet extended release 10 meq PO DAILY Qty: 30 11RF Hold Instructions: MD Ordered Discontinued aspirin [Adult Low Dose Aspirin] 81 mg tablet,delayed release (DR/EC) 81 mg PO DAILY Referrals / Follow [facility] [[facility] - Within 2 Weeks Disposition Disposition (needs filled in before D/C Order can be placed): Home, Self Care Charges/Coding Visit Charges Inpatient E&M: 21192 Disch Hosp >30min
--- NOTE | 2023-03-15 13:16 | PHA.DC.MR.R ---
Pharmacy CT Med Reconciliation Pharmacy Service has performed discharge medication reconciliation for this patient. The patient's discharge medication list was reviewed for discrepancies and discrepancies were resolved. Medications at Discharge Home Medications cholecalciferol (vitamin D3) 50 mcg (2,000 unit) tablet 50 mcg PO DAILY SUPPLEMENT 04/13/21 colchicine 0.6 mg tablet 1.2 mg PO DAILY PRN gout 02/04/22 ferrous gluconate 324 mg (36 mg iron) tablet 324 mg PO DAILY SUPPLEMENT 02/04/22 folic acid 1 mg tablet 2 mg PO DAILY SUPPLEMENT 02/04/22 methotrexate sodium 2.5 mg tablet 15 mg PO SA arthritis 02/04/22 apixaban 5 mg tablet 5 mg PO BID BLOOD THINNER #90 tabs 05/14/22 doxazosin 1 mg tablet 1 mg PO DAILY BLOOD PRESSURE #90 tabs 05/14/22 furosemide 40 mg tablet 40 mg PO DAILY FLUID #90 tabs 05/14/22 pantoprazole 40 mg tablet,delayed release 40 mg PO DAILY ACID REFLUX #180 tabs 05/14/22 rosuvastatin 20 mg tablet 20 mg PO DAILY CHOLESTEROL #90 tabs 05/14/22 metoprolol succinate 50 mg tablet,extended release 24 hr 50 mg PO BID BLOOD PRESSURE #180 tabs 05/27/22 allopurinol 100 mg tablet 200 mg PO DAILY GOUT 08/31/22 gabapentin 100 mg capsule 100 mg PO TID NEUROPATHY 08/31/22 prednisone 10 mg tablet 10 mg PO DAILY PRN pain 08/31/22 potassium chloride 10 mEq tablet,extended release 10 meq PO DAILY hypokalemia #30 tabs 09/02/22 acetaminophen 325 mg tablet (Tylenol) 325 mg PO Q6H PRN pain 03/12/23 lidocaine 5 % topical patch 2 patch topical DAILY pain 03/12/23
[2023-03-15 13:24] VITALS: BP 118/59; PULSE 60; RESP 16; TEMP 36.6; O2SAT 98
== END 2023-03-15 13:47 | disposition home or self-care (01) | DRG 920 ==
LOC: ED 08:54 → MS3 18:18
PROVIDERS: Anesthesiology; Internal Medicine; Physician Assistant; Surgery; Admitting Provider Family Medicine; Emergency Provider Emergency Medicine; Referring Provider Emergency Medicine; Visit Provider Student in an Organized Health Care Education/Training Program
PROC: 0DJD8ZZ Inspection of Lower Intestinal Tract, Via Natural or Artificial Opening Endoscopic (ICD-10-PCS; CPT 45378; principal; 2023-03-13 08:30)
DX: K91.840 Postprocedural hemorrhage of a digestive system organ or structure following a digestive system procedure (principal); I48.11 Longstanding persistent atrial fibrillation; I50.32 Chronic diastolic (congestive) heart failure; D62 Acute posthemorrhagic anemia; I11.0 Hypertensive heart disease with heart failure; I49.5 Sick sinus syndrome; K29.70 Gastritis, unspecified, without bleeding; E78.2 Mixed hyperlipidemia; I25.10 Atherosclerotic heart disease of native coronary artery without angina pectoris; K44.9 Diaphragmatic hernia without obstruction or gangrene; K31.7 Polyp of stomach and duodenum; D12.4 Benign neoplasm of descending colon; D12.3 Benign neoplasm of transverse colon; D12.0 Benign neoplasm of cecum; M10.9 Gout, unspecified; N40.0 Benign prostatic hyperplasia without lower urinary tract symptoms; Z95.0 Presence of cardiac pacemaker; Z95.5 Presence of coronary angioplasty implant and graft; Z90.49 Acquired absence of other specified parts of digestive tract; Z79.82 Long term (current) use of aspirin; Z79.899 Other long term (current) drug therapy; Z87.891 Personal history of nicotine dependence
CPT/HCPCS: 36415; 80048; 80053; 80076; 85014; 85018; 85025; 85027; 85610; 85730; 86850; 86900; 86901; 86920; 93005; 99284; J7040; P9016; A4216; J2405

== ENCOUNTER 2023-03-27 07:59 | Emergency (ER) | payer OTHER, SELFPAY ==
[2023-03-27 08:01] VITALS: BP 144/68; PULSE 115; RESP 16; TEMP 36.2; O2SAT 97; BMI 29.0
--- NOTE | 2023-03-27 08:29 | EKG12_ITS ---
Test Reason : PALP Blood Pressure : / mmHG Vent. Rate : 063 BPM Atrial Rate : 375 BPM P-R Int : 000 ms QRS Dur : 170 ms QT Int : 466 ms P-R-T Axes : 000 041 058 degrees QTc Int : 476 ms Ventricular-paced rhythm with premature ventricular or aberrantly conducted complexes Abnormal ECG Atrial fibrillation Confirmed by JONATHON ORO, PIEDAD ([id number]), writer editor BRAVO PADILLA ([id number]) on 04/05/2023 9:14:09 AM Referred By: MAIKOL Confirmed By:PIEDAD HOLT MD
--- NOTE | 2023-03-27 08:32 | EDS_ITS ---
HPI History of Present Illness Chief Complaint: Palpitations Informant: patient, family and EMS Narrative Narrative: 77-year-old male with a history of coronary artery disease, diastolic CHF and atrial fibrillation presenting to the emergency room with episodic palpitations. Patient states that yesterday and today he called the ambulance due to fast heart rate. He states that sometimes his episodes last minutes other times hours. He has not taken his heart rate during the episodes. He is currently sees Dr. Richardson for cardiology. He has a history of tachybradycardia syndrome and has a pacemaker. He states that it was last checked within the month. He is on Eliquis as well as metoprolol. Recent hospitalization for GI bleed. Patient states at the time of examination he does not feel his heart racing. [facility] Medical History Anemia Anemia Atherosclerotic heart disease of [place] coronary artery without angina pectoris Atrial fibrillation Back pain due to injury Bleeding tendency Chronic anticoagulation Chronic diastolic (congestive) heart failure GERD (gastroesophageal reflux disease) GI bleed High cholesterol History of stress test HTN (hypertension), benign Hyperlipemia, mixed Irregular heartbeat Lightheadedness Longstanding persistent atrial fibrillation Multiple premature ventricular complexes Obesity Pacemaker Rheumatoid arthritis Skin cancer Syncope Tachy-cory syndrome Troponin I above reference range Unstable angina Home Medications cholecalciferol (vitamin D3) 50 mcg (2,000 unit) tablet 50 mcg PO DAILY SUPPLEMENT 04/13/21 [History Last Taken 02/17/23] colchicine 0.6 mg tablet 1.2 mg PO DAILY PRN gout 02/04/22 [History Last Taken 02/17/23] ferrous gluconate 324 mg (36 mg iron) tablet 324 mg PO DAILY SUPPLEMENT 02/04/22 [History Last Taken 02/17/23] folic acid 1 mg tablet 2 mg PO DAILY SUPPLEMENT 02/04/22 [History Last Taken 02/17/23] methotrexate sodium 2.5 mg tablet 15 mg PO SA arthritis 02/04/22 [History Last Taken 02/12/23] apixaban 5 mg tablet 5 mg PO BID BLOOD THINNER #90 tabs 05/14/22 [Rx Last Taken 02/17/23] doxazosin 1 mg tablet 1 mg PO DAILY BLOOD PRESSURE #90 tabs 05/14/22 [Rx Last Taken 02/17/23] furosemide 40 mg tablet 40 mg PO DAILY FLUID #90 tabs 05/14/22 [Rx Last Taken 02/17/23] pantoprazole 40 mg tablet,delayed release 40 mg PO DAILY ACID REFLUX #180 tabs 05/14/22 [Rx Last Taken 02/17/23] rosuvastatin 20 mg tablet 20 mg PO DAILY CHOLESTEROL #90 tabs 05/14/22 [Rx Last Taken 02/17/23] metoprolol succinate 50 mg tablet,extended release 24 hr 50 mg PO BID BLOOD PRESSURE #180 tabs 05/27/22 [Rx Last Taken 02/17/23] allopurinol 100 mg tablet 200 mg PO DAILY GOUT 08/31/22 [History Last Taken 02/17/23] gabapentin 100 mg capsule 100 mg PO TID NEUROPATHY 08/31/22 [History Last Taken 02/17/23] prednisone 10 mg tablet 10 mg PO DAILY PRN pain 08/31/22 [History Last Taken Unknown] potassium chloride 10 mEq tablet,extended release 10 meq PO DAILY hypokalemia #30 tabs 09/02/22 [Rx Last Taken 02/17/23] acetaminophen 325 mg tablet (Tylenol) 325 mg PO Q6H PRN pain 03/12/23 [History Last Taken Unknown] lidocaine 5 % topical patch 2 patch topical DAILY pain 03/12/23 [History Last Taken Unknown] aspirin 81 mg chewable tablet 81 mg PO DAILY #30 tabs 03/15/23 [Rx Last Taken Unknown] Allergy/AdvReac Type Severity Reaction Status Date / Time lisinopril Allergy Angioedema Verified 03/27/23 08:11 Penicillins [PCN] Allergy Hives Verified 03/27/23 08:11 Family History Other CVA (cerebral vascular accident) Hypertension Surgical History H/O cardiac catheterization History of appendectomy History of arthroscopic knee surgery History of colonoscopy with polypectomy History of coronary artery stent placement (09/22/20) History of heart artery stent History of left heart catheterization (02/05/22) History of permanent cardiac pacemaker placement (12/15/20) Social History Smoking Status: Former smoker ROS ROS ED Constitutional Constitutional ED: Denies chills, fever(s) or weight loss Eyes Eyes: Denies change in vision or diplopia ENT ENT ED: Denies ear pain, rhinorrhea or sore throat Cardiovascular Cardiovascular: Reports palpitations; Denies chest pain, orthopnea or racing heartbeat Respiratory/Chest Respiratory/Chest: Denies cough, dyspnea or orthopnea Gastrointestinal Gastrointestinal: Denies abdominal pain, diarrhea, nausea or vomiting Genitourinary Genitourinary ED: Denies dysuria, hematuria or urinary frequency Musculoskeletal Musculoskeletal: Denies arthralgias or myalgias Integumentary Denies abscess or rash Neurologic Neurologic: Denies headache(s) or weakness Psychiatric Psychiatric: Denies anxiety, depression, suicidal ideation or suicidal thoughts Endocrine Endocrinology: Denies polydipsia, polyphagia or polyuria Allergic/Immunologic Allergic/Immunologic ED: Denies mouth swelling, tongue swelling or urticaria EXAM Physical Exam Const Vital Signs: 03/27/23 08:01 03/27/23 08:07 03/27/23 08:11 Temperature 97.1 F L Temperature Source Temporal Pulse Rate 115 H Respiratory Rate 16 Respiratory Effort Normal Non-Labored Normal Non-Labored Respiratory Pattern Normal Blood Pressure 144/68 H Blood Pressure Mean 93 Pulse Ox 97 Oxygen Delivery Method Room Air 03/27/23 10:01 03/27/23 10:10 Temperature Temperature Source Pulse Rate 60 60 Respiratory Rate 14 15 Respiratory Effort Respiratory Pattern Blood Pressure 125/64 H 125/64 H Blood Pressure Mean 84 84 Pulse Ox 97 95 Oxygen Delivery Method Room Air Room Air Positive well nourished and well developed General Appearance ED: well developed HEENT Reports normocephalic, head/scalp atraumatic and moist mucous membranes Eyes PERRL and EOMs intact bilaterally Neck no lymphadenopathy, supple and no JVD Resp normal respiratory effort and clear to auscultation bilaterally Cardio regular rate, regular rhythm and no murmurs GI normal to inspection, nondistended, normoactive bowel sounds and non-tender Palpation: soft Back/Spine no CVA tenderness and normal ROM Extremity normal to inspection General Extremety ED: Negative for edema General Extremity: Negative for edema Neuro oriented x3 and CN's II-XII intact bilaterally Sensorium / Orientation: alert Motor Exam: strength 5/5 throughout Psych mental status grossly normal Mood & Affect: Negative for depressed or tearful Skin no rashes or lesions noted and no wounds MDM MDM MDM Narrative Medical decision making narrative: Sodium potassium magnesium within normal limits. Hemoglobin 9.3 which is improving since his hospitalization. On the monitor he remains in atrial flutter with a paced rhythm. I have not seen any tacky dysrhythmias. I spoke with on-call cardiology who does not wish to make any new medication changes. Patient will be discharged home. At this point I suspect his symptoms are related to paroxysmal atrial fibrillation. I do not suspect ACS dissection pulmonary embolism pneumonia. In speaking with the patient and his family more the patient is pretty sure he is taking the metoprolol only once a day instead of twice a day. He is doing this because his paperwork [facility] to be once a day. Our paperwork from his last hospitalization is twice a day. His episodes of palpitations seem to be mostly at night per the patient and family. This could be because the metoprolol is wearing off as he approaches his next dose. I will make sure he is taking it twice a day to see if that makes a change update his paperwork and [facility] History & Record Review Discussion w/independent historian: Patient and Family Additional record(s) reviewed:: Prior inpatient record, Prior outpatient record, Prior ED visit and Prior labs Lab Data Attestation: I reviewed the patient's lab results. Labs: Laboratory Results - last 24 hr 03/27/23 08:40 WBC 6.5 RBC 3.29 L Hgb 9.3 L Hct 30.6 L MCV 93.0 MCH 28.3 MCHC 30.4 L RDW Std Deviation 50.0 H RDW Coeff of Misti 14.9 H Plt Count 222 MPV 11.2 Immature Gran % (Auto) 0.500 Neut % (Auto) 64.6 Lymph % (Auto) 17.0 L Brantley % (Auto) 15.3 H Eos % (Auto) 1.8 Baso % (Auto) 0.8 Absolute Neuts (auto) 4.2 Absolute Lymphs (auto) 1.11 Nucleated RBC % 0 Sodium 140 Potassium 3.5 Chloride 105 Carbon Dioxide 30.0 Anion Gap 5 BUN 15 Creatinine 1.26 Estim Creat Clear Calc 60.54 Est GFR (MDRD) Af Amer 72 Est GFR (MDRD) Non-Af 59 L BUN/Creatinine Ratio 11.9 Glucose 107 H Calcium 9.1 Magnesium 2.2 EKG Initial EKG: Attestation: I personally reviewed and interpreted this EKG as follows: Comments: Ventricular paced rhythm at a rate of 63 bpm. Underlying atrial flutter rhythm. Discharge Plan Triage Chief Complaint: Palpitations ED Provider: Jimbo Aquino Dx/Rx/DC Orders Clinical Impression: Anticoagulated, Atrial flutter, Rapid palpitations, Chronic diastolic (congestive) heart failure Instructions: ED AFIB, ED Palpitations Prescriptions: No Action gabapentin 100 mg capsule 100 mg PO TID cholecalciferol (vitamin D3) 50 mcg (2,000 unit) Tablet 50 mcg PO DAILY allopurinol 100 mg tablet 200 mg PO DAILY methotrexate sodium 2.5 mg Tablet 15 mg PO SA Hold Instructions: MD Ordered folic acid 1 mg tablet 2 mg PO DAILY colchicine 0.6 mg tablet 1.2 mg PO DAILY PRN (Reason: gout) Hold Instructions: Ordered ferrous gluconate 324 mg (36 mg iron) Tablet 324 mg PO DAILY Hold Instructions: Ordered prednisone 10 mg tablet 10 mg PO DAILY PRN (Reason: pain ) Hold Instructions: MD Ordered lidocaine 5 % adhesive patch,medicated 2 patch topical DAILY Rx Instructions: leave on most painful area for up to 12 hrs acetaminophen [Tylenol] 325 mg tablet 325 mg PO Q6H PRN (Reason: pain) aspirin 81 mg tablet,chewable 81 mg PO DAILY Qty: 30 2RF apixaban 5 mg tablet 5 mg PO BID Qty: 90 3RF doxazosin 1 mg tablet 1 mg PO DAILY Qty: 90 3RF furosemide 40 mg tablet 40 mg PO DAILY Qty: 90 3RF Hold Instructions: Ordered rosuvastatin 20 mg tablet 20 mg PO DAILY Qty: 90 3RF pantoprazole 40 mg tablet,delayed release (DR/EC) 40 mg PO DAILY Qty: 180 3RF metoprolol succinate 50 mg tablet extended release 24 hr 50 mg PO BID Qty: 180 3RF potassium chloride 10 mEq tablet extended release 10 meq PO DAILY Qty: 30 11RF Hold Instructions: MD Ordered Primary Care Provider: [facility] Referrals: Emanuel Richardson MD [Med Staff - Active Staff] - [facility] appointment [place] [place] [Primary Care Provider] - Activity Restrictions/Additional Instructions: As discussed, your episodes are possibly related to your atrial fibrillation. It is common that people with atrial fibrillation have episodes of racing heart. They will be able to interrogate your pacemaker further at your doctors appointment. At this point however cardiology's recommendation is not to adjust your medications. Please continue the metoprolol and your blood thinner apixaban. If you get more episodes please try to take your heart rate by checking your pulse. Should you develop chest pain passing out or almost passing out or new/worsening symptoms please return to emergency. Disposition Disposition: Home, Self Care
[2023-03-27 08:54] LABS: Absolute Lymphocyte Count 1.11 X10^3/uL (0.83-4.51); Absolute Neutrophil Count 4.2 X10^3/uL (2.0-7.7); Basophil# 0.05 X10^3/uL; Basophil% 0.8 % (0-1); Eosinophil# 0.12 X10^3/uL; Eosinophils% 1.8 % (0-5); Hematocrit 30.6 % (40-54); Hemoglobin 9.3 g/dL (13.0-16.5); Lymphocyte # 1.11 X10^3/ul (0.83-4.51); Mean Corp Hgb Conc 30.4 g/dL (32-36); Mean Corpuscular Hgb 28.3 pg (27.0-32.0); Mean Platelet Vol. 11.2 fl (6.2-12.0); Monocyte% 15.3 % (0-10); NRBC Flagged by Analyzer 0 % (0-5); Neutrophil # 4.21 X10^3/uL (2.7-7.7); Neutrophil % 64.6 % (47-70); Platelet Count 222 K/mm3 (150-450); RBC Distribution Width CV 14.9 % (11.6-14.6); Red Blood Count 3.29 M/mm3 (4.6-6.2); White Blood Count 6.5 K/mm3 (4.4-11.0)
[2023-03-27 09:16] LABS: Anion Gap 5 (5-15); BUN 15 mg/dL (7-18); BUN/Creat Ratio 11.9 RATIO (10-20); Calcium,Total 9.1 mg/dL (8.5-10.1); Chloride 105 mmol/L (98-107); Creatinine, Serum 1.26 mg/dL (0.70-1.30); EST Glomerular Filtration Rate 59 mL/min (>60); Est Glom Filt Rate - Afr Amer 72 mL/min (>60); Estimated Creatinine Clearance 60.54 ml/min; Glucose 107 mg/dL (74-106); Magnesium 2.2 mg/dL (1.6-2.6); Potassium 3.5 mmol/L (3.5-5.1); Sodium Level 140 mmol/L (136-145)
[2023-03-27 10:01] VITALS: BP 125/64; PULSE 60; RESP 14; O2SAT 97
[2023-03-27 10:10] VITALS: BP 125/64; PULSE 60; RESP 15; O2SAT 95
== END 2023-03-27 10:31 | disposition home or self-care (01) ==
PROVIDERS: Emergency Provider Emergency Medicine; Visit Provider Emergency Medicine
DX: I48.0 Paroxysmal atrial fibrillation (principal); I11.0 Hypertensive heart disease with heart failure; I50.32 Chronic diastolic (congestive) heart failure; I48.92 Unspecified atrial flutter; I49.5 Sick sinus syndrome; E78.2 Mixed hyperlipidemia; I25.10 Atherosclerotic heart disease of native coronary artery without angina pectoris; Z95.0 Presence of cardiac pacemaker; Z95.5 Presence of coronary angioplasty implant and graft; Z79.01 Long term (current) use of anticoagulants; Z79.82 Long term (current) use of aspirin; Z79.899 Other long term (current) drug therapy; Z87.891 Personal history of nicotine dependence
CPT/HCPCS: 80048; 83735; 85025; 93005; 99285

== ENCOUNTER → 2023-04-28 | Outpatient (CLI) | payer OTHER, SELFPAY ==
--- OUTSIDE RECORDS SUMMARY | 2023-04-28 08:16 | XMS RPT_ITS | CCD ---
Author Name Unknown Address [address] [place] [address] Organization [facility] Care Team Providers Care Sample Selector Name Role Phone Clarisse Encinas Primary Care Provider [phone] ABRAN ESPARZA Admitting Unavail able ABRAN ESPARZA Attending Unavail able CLARISSE ENCINAS Primary Care Unavailab le ABRAN ESPARZA Attending Unavail able ABRAN ESPARZA Admitting Unavail able ABRAN ESPARZA Attending Unavail able ABRAN ESPARZA Referring Unavail able CLARISSE ENCINAS Primary Care Unavailab le ABRAN ESPARZA Attending Unavail able CLARISSE ENCINAS Primary Care Unavailab Clarisse Mari Primary Care Provider Unavailable Primary Care Provider UnavailDIANN Boss Primary Care Unavailable DIANN ADAME Attending Unavailable DIANN ADAME Admitting Unavailable NO, DOCTOR ON Consulting Unavailable JESSE STEVENS DO Primary Care Unavailable JESSE STEVENS DO Attending Unavailable JESSE STEVENS DO Admitting Unavailable CLAUDINE ALMONTE MD Primary Care Unavailable CLAUDINE ALMONTE MD Attending Unavailable CLAUDINE ALMONTE MD Admitting Unavailable NO, DOCTOR ON Consulting Unavailable DIANN ADAME Primary Care Unavailable DIANN ADAME Attending Unavailable DIANN ADAME Admitting Unavailable NO, DOCTOR ON Consulting Unavailable NO, DOCTOR ON Consulting Unavailable JESSICA OVERTON MD Admitting Unavailabl e ELIZABETHANDAJESSICA Aquino MD Primary Care Unavailabl e JESSICA OVERTON MD Attending Unavailabl e JESSICA OVERTON MD Admitting Unavailabl e ELIZABETHANDANJESSICA MD Primary Care Unavailabl e JESSICA OVERTON MD Attending Unavailabl e NO, DOCTOR ON Consulting Unavailable HI Primary Care Unavailable HI Attending Unavailable KAITLIN Admitting Unavailable NO, DOCTOR ON Consulting Unavailable NICKY RODRIGUEZ MD Primary Care Unavailable NICKY RODRIGUEZ MD Attending Unavailable NICKY RODRIGUEZ MD Admitting Unavailable NO, DOCTOR ON Consulting Unavailable NO, DOCTOR ON Consulting Unavailable JESSICA OVERTON MD Admitting Unavailabl e JESSICA OVERTON MD Primary Care Unavailabl e JESSICA OVERTON MD Attending Unavailabl e JESSICA OVERTON MD Primary Care Unavailabl e JESSICA OVERTON MD Attending Unavailabl e JESSICA OVERTON MD Admitting Unavailabl e NO, DOCTOR ON Consulting Unavailable NICKY RODRIGUEZ MD Primary Care Unavailable NICKY RODRIGUEZ MD Attending Unavailable NO, DOCTOR ON Consulting Unavailable NICKY RODRIGUEZ MD Admitting Unavailable JUANA KULKARNI DR Primary Care Unavailable JUANA KULKARNI DR Attending Unavailable NO, DOCTOR ON Consulting Unavailable JUANA KULKARNI DR Admitting Unavailable PROVIDER, UNKNOWN Attending Unavailable PROVIDER, UNKNOWN Admitting Unavailable MARIA FERNANDA EVANS Referring Unavailable Abran Esparza MD Primary Care Provider Williams Contreras Referring Unavailable ABRAN ESPARZA Primary Care Unavailable Chelita Oliveira Attending Unavailable ABRAN ESPARZA Primary Care Unavailable [facility] Primary Care Provider SCOOBY GARCIA Attending UnavailChelita Brower Referring Unavailable Allergies Allergy Classification Reported Allergen(s) Allergy Type Date of Onset Reaction(s) Facility (14 sources) Angiotensin Converting Enzyme (Georgi) Inhibitors; Translations: [Unknown] Propensity to adverse reactions to drug 6 Anaphylaxis [facility] (11 sources) atorvastatin; Translations: [ATORVASTATIN] Drug Allergy 0 Unknown [facility] (12 sources) Lisinopril; Translations: [LISINOPRIL] Drug Allergy 6 Swelling [facility] (5 sources) Penicillins Propensity to adverse reactions to drug 0 Rash [facility] (1 source) atorvastatin Drug Allergy [facility] (1 source) Lisinopril Drug Allergy [facility] (1 source) Penicillin Drug Allergy [facility] (7 sources) Penicillin; Translations: [PENICILLIN] Drug Allergy 6 Rash [facility] Medications Current Medications Medication Drug Class(es) Dates Sig (Normalized) Sig (Original) multivitamin (multivitamin) per tablet (4 sources) take 1 tablet by mouth twice daily multivitamin (multivitamin) per tablet Take 1 tablet by mouth 2 (two) times a day . 0 Active naproxen 500 mg oral tablet (2 sources) Nonsteroidal Anti-inflammatory Drug Start: 11-27-2020 End: 11-27-2020 take 1 tablet by mouth twice daily as needed for pain naproxen (NAPROSYN) 500 MG tablet Take 1 tablet by mouth 2 times daily as needed for Pain 60 tablet 0 11/27/2020 11/27/2020 Discontinued (REORDER) sodium chloride flush 0.9 % injection 3 mL (1 source) Start: 11-26-2020 sodium chloride flush 0.9 % injection 3 mL Completed/Discontinued Medications Medication Drug Class(es) Dates Sig (Normalized) Sig (Original) acetaminophen 325 mg oral tablet (5 sources) Start: 10-27-2022 take 1-2 tablets by mouth four times daily as needed for pain acetaminophen (TYLENOL) 325 mg tablet TAKE ONE TO TWO TABLETS BY MOUTH FOUR TIMES A DAY NEEDED FOR PAIN. 0 10/27/2022 Active Problems Active Problems Problem Classification Problem Date Documented Date Episodic/Chronic Cardiac dysrhythmias (7 sources) Unspecified atrial fibrillation; Translations: [Paroxysmal atrial fibrillation] Onset: 11-29-2016 11-29-2016 Chronic Conduction disorders (5 sources) Cardiac pacemaker in situ; Translations: [Presence of cardiac pacemaker] Onset: 02-14-2023 12-22-2022 Chronic Congestive heart failure; nonhypertensive (4 sources) Chronic diastolic heart failure; Translations: [Chronic diastolic (congestive) heart failure] Onset: 03-23-2022 02-14-2023 Chronic Coronary atherosclerosis and other heart disease (10 sources) Atherosclerotic heart disease of [place] coronary artery without angina pectoris; Translations: [Coronary arteriosclerosis] Onset: 11-29-2016 Chronic Deficiency and other anemia (4 sources) Iron deficiency anemia due to blood loss; Translations: [Iron deficiency anemia secondary to blood loss (chronic)] Onset: 05-10-2019 02-14-2023 Chronic Deficiency and other anemia (6 sources) Iron deficiency anemia due to blood loss; Translations: [Iron deficiency anemia due to chronic blood loss] Onset: 05-10-2019 05-10-2019 Disorders of lipid metabolism (6 sources) Hypercholesterolemia; Translations: [Pure hypercholesterolemia, unspecified] Onset: 12-03-2015 12-03-2015 Chronic Esophageal disorders (7 sources) Gastroesophageal reflux disease without esophagitis; Translations: [Gastro-esophageal reflux disease without esophagitis] Onset: 11-28-2015 11-28-2015 Chronic Essential hypertension (7 sources) Essential (primary) hypertension; Translations: [Essential hypertension] Onset: 11-28-2015 11-28-2015 Chronic Fluid and electrolyte disorders (4 sources) Hypokalemia; Translations: [Hypokalemia] Onset: 02-14-2023 02-14-2023 Episodic Gout and other crystal arthropathies (1 source) Gout, unspecified; Translations: [Gout, unspecified] Onset: 11-21-2020 Chronic Osteoarthritis (1 source) Unspecified osteoarthritis, unspecified site; Translations: [Unspecified osteoarthritis, unspecified site] Onset: 03-16-2021 Chronic Other aftercare (1 source) Drug therapy finding; Translations: [intermediate frame tender (current) use of anticoagulants] 12-22-2022 Episodic Other and unspecified benign neoplasm (1 source) Adenomatous polyp of colon ; Translations: [Adenomatous polyp of descending colon] Episodic Other and unspecified benign neoplasm (1 source) History of polyp of colon; Translations: [Personal history of colonic polyps] 12-22-2022 Episodic Other and unspecified benign neoplasm (1 source) Benign adenomatous neoplasm; Translations: [Benign neoplasm, unspecified site] 12-22-2022 Episodic Other and unspecified benign neoplasm (1 source) Personal history of colonic polyps; Translations: [History of colonic polyps] Onset: 03-02-2023 Episodic Other connective tissue disease (1 source) Hand pain; Translations: [Pain in unspecified hand] Episodic Other lower respiratory disease (1 source) Dyspnea; Translations: [Dyspnea, unspecified] Episodic Other nutritional; endocrine; and metabolic disorders (6 sources) Obesity caused by energy imbalance; Translations: [Other obesity due to excess calories] Onset: 05-31-2016 05-31-2016 Chronic Residual codes; unclassified (7 sources) Family history of cancer of colon; Translations: [Family history of malignant neoplasm of digestive organs] Onset: 05-10-2019 05-10-2019 Episodic Residual codes; unclassified (1 source) Family history of malignant neoplasm of digestive organs; Translations: [Family history of colon cancer] Onset: 03-02-2023 Episodic Rheumatoid arthritis and related disease (4 sources) Rheumatoid arthritis; Translations: [Rheumatoid arthritis, unspecified] Onset: 02-14-2023 02-14-2023 Chronic Spondylosis; intervertebral disc disorders; other back problems (4 sources) Lumbar spondylosis; Translations: [Other spondylosis, lumbar region] Onset: 02-14-2023 02-14-2023 Chronic Unclassified (1 source) OPENED IN ERROR 02-14-2023 Past or Other Problems Problem Classification Problem Date Documented Da te Episodic/Chronic Allergic reactions (2 sources) Allergy status to penicillin; Translations: [Allergy status to other drugs, medicaments and biological substances status] Onset: 11-26-2020 Episodic Coronary atherosclerosis and other heart disease (1 source) Coronary angioplasty status; Translations: [Coronary angioplasty status] Onset: 03-08-2021 Episodic Other aftercare (1 source) intermediate frame tender (current) use of anticoagulants; Translations: [assisted (current) use of anticoagulants] Onset: 11-21-2020 Episodic Other aftercare (5 sources) Long-term current use of anticoagulant; Translations: [assisted (current) use of anticoagulants] Onset: 05-31-2016 05-31-2016 Episodic Other connective tissue disease (1 source) Olecranon bursitis, left elbow; Translations: [Olecranon bursitis, left elbow] Onset: 03-08-2021 Episodic Other connective tissue disease (1 source) Pain in left arm; Translations: [Pain in left arm] Onset: 03-08-2021 Episodic Other connective tissue disease (1 source) Other synovitis and tenosynovitis, right hand; Translations: [Other synovitis and tenosynovitis, right hand] Onset: 11-26-2020 Episodic Other non-traumatic joint disorders (2 sources) Pain in left elbow; Translations: [Pain in left elbow] Onset: 03-08-2021 Episodic Other non-traumatic joint disorders (1 source) Pain in right knee; Translations: [Pain in right knee] Onset: 03-08-2021 Episodic Other non-traumatic joint disorders (2 sources) Effusion, right hand; Translations: [Effusion, right hand] Onset: 11-26-2020 Episodic Skin and subcutaneous tissue infections (1 source) Cellulitis of right upper limb; Translations: [Cellulitis of right upper limb] Onset: 11-26-2020 Episodic Spondylosis; intervertebral disc disorders; other back problems (1 source) Dorsalgia, unspecified; Translations: [Dorsalgia, unspecified] Onset: 03-08-2021 Episodic Results Test Name Value Interpretation Reference Range Facil ity Vital Signs Date Time Vital Sign Value Performing Clinician Facility 02-14-2023 08:41-0500 Body height 190.5 cm Pacc 1 Work Phone: [facility] 02-14-2023 08:41-0500 Body temperature 98.6 [degF] Pacc 1 Work Phone: [facility] 02-14-2023 08:41-0500 Body weight 115.67 kg Pacc 1 Work Phone: [facility] 02-14-2023 08:41-0500 Diastolic blood pressure 64 mm[Hg] Pacc 1 Work Phone: [facility] 02-14-2023 08:41-0500 Heart rate 60 /min Pacc 1 Work Phone: [facility] 02-14-2023 08:41-0500 Respiratory rate 14 /min Pacc 1 Work Phone: [facility] 02-14-2023 08:41-0500 SaO2% (BldA) [Mass fraction] 99 % Pacc 1 Work Phone: [facility] 02-14-2023 08:41-0500 Systolic blood pressure 122 mm[Hg] Pacc 1 Work Phone: [facility] 12-22-2022 08:46-0400 Body height 190.5 cm Chelita Oliveira PA-C Work Phone: [facility] 12-22-2022 08:46-0400 Body temperature 97.2 [degF] Chelita Tee PA-C Work Phone: [facility] 12-22-2022 08:46-0400 Body weight 115.3 kg Chelita Carleton PA-C Work Phone: [facility] 12-22-2022 08:46-0400 Diastolic blood pressure 74 mm[Hg] Chelita Tee PA-C Work Phone: [facility] 12-22-2022 08:46-0400 Heart rate 62 /min Chelita Carleton PA-C Work Phone: [facility] 12-22-2022 08:46-0400 SaO2% (BldA) [Mass fraction] 99 % Chelita Carleton PA-C Work Phone: [facility] 12-22-2022 08:46-0400 Systolic blood pressure 124 mm[Hg] Chelita Carleton PA-C Work Phone: [facility] 11-27-2020 05:36-0400 Diastolic blood pressure 72 mm[Hg] [facility] David [facility] Work Phone: 11-27-2020 05:36-0400 Heart rate 50 /min Cherrie David MD Work Phone: [facility] Work Phone: 11-27-2020 05:36-0400 Respiratory rate 17 /min Cherrie David MD Work Phone: [facility] Work Phone: 11-27-2020 05:36-0400 SaO2% (BldA) [Mass fraction] 98 % Cherrie David MD Work Phone: [facility] Work Phone: 11-27-2020 05:36-0400 Systolic blood pressure 148 mm[Hg] Cherrie David MD Work Phone: [facility] Work Phone: 11-26-2020 20:41-0400 Body temperature 98.2 [degF] Cherrie David MD Work Phone: [facility] Work Phone: 11-26-2020 20:41-0400 Body height 190.5 cm Cherrie David MD [facility] Work Phone: 11-26-2020 20:41-0400 Body mass index (BMI) [Ratio] 30.62 kg/m2 Cherrie David MD [facility] Work Phone: 11-26-2020 20:41-0400 Body weight 111.13 kg Cherrie David MD Work Phone: [facility] Work Phone: 06-11-2019 09:58-0400 BP Diastolic 61 mm[Hg] Abran [facility] 06-11-2019 09:58-0400 BP Systolic 132 mm[Hg] [facility] 06-11-2019 09:58-0400 Pulse (Heart Rate) 60 /min [facility] 06-11-2019 09:58-0400 Pulse Oximetry 98 % Abran [facility] 06-11-2019 09:58-0400 Respiratory Rate 12 /min [facility] 06-11-2019 09:38-0400 Body Temperature 98.2 [degF] Abran [facility] 06-11-2019 08:33-0400 BMI (Body Mass Index) 32.25 kg/m2 [facility] 06-11-2019 08:33-0400 Body weight 117.03 kg [facility] 06-11-2019 08:33-0400 Height 190.5 cm Abran [facility] 05-10-2019 15:06-0500 BMI (Body Mass Index) 33.75 kg/m2 [facility] 05-10-2019 15:06-0500 Body weight 122.47 kg [facility] 05-10-2019 15:06-0500 BP Diastolic 77 mm[Hg] [facility] 05-10-2019 15:06-0500 BP Systolic 179 mm[Hg] Abran Angelhotra [facility] 05-10-2019 15:06-0500 Height 190.5 cm Abran Esparza [facility] 05-10-2019 15:06-0500 Pulse (Heart Rate) 70 /min Abran Espazra [facility] 05-10-2019 15:06-0500 Pulse Oximetry 96 % Abran [facility] Encounters Encounter Date Encounter Type Care Provider Facility Start: 03-04-2023 Telephone encounter Williams Contreras MD Work Phone: [place] Provider Adult Procedures Date Procedure Procedure Detail Performing Clinician Start: 03-02-2023 Colonoscopy Williams schultz MD Work Phone: Start: 03-13-2021 Urinalysis DIANN TAMEZ BERNIEERGER Plan of Treatment Date Care Activity Detail Author Start: 11-26-2030 Urine microalbumin profile DTaP,Tdap,Td Vaccine (3 - Td or Tdap) [facility] Start: 06-10-2029 Screening for malignant neoplasm of colon [facility] Start: 03-02-2024 Colonoscopy Colonoscopy [facility] Start: 03-02-2024 Colorectal Cancer Screening Colorectal Cancer Screening [facility] Start: 02-15-2024 BP Controlled (<130/80) BP Controlled (<130/80) [facility] Start: 12-23-2023 BP Controlled (<130/80) BP Controlled (<130/80) [facility] Start: 12-03-2022 Influenza vaccination Influenza Vaccine (#1) [facility] Start: 04-04-2022 Advance Directive Discussion Advance Directive Discussion [facility] Start: 04-04-2022 Depression Assessment Depression Assessment [facility] Start: 01-02-2022 Influenza vaccination Influenza Vaccine (#1) [facility] Start: 12-09-2020 Colonoscopy Colonoscopy [facility] Start: 12-09-2020 Colorectal Cancer Screening Colorectal Cancer Screening [facility] Start: 12-03-2020 Influenza vaccination Flu vaccine (#1) [facility] Work Phone: Start: 08-09-2020 COVID-19 Vaccine (2 - Booster for Michael series) COVID-19 Vaccine (2 - Booster for Michael series) [facility] Start: 07-12-2020 Covid-19 Vaccine (2 - Michael risk series) Covid-19 Vaccine (2 - Michael risk series) [facility] Start: 12-04-2019 Influenza vaccination given Sequential Influenza Vaccine (#1) [facility] Start: 06-11-2019 Hospital Encounter 06/11/2019 Hospital Encounter Abran Esparza MD [address] [place] [id number] [phone] Iron deficiency anemia due to chronic blood loss; Family history of colon cancer requiring screening colonoscopy [facility] Periop Immunizations Immunization Date Immunization Notes Care Provider Fa cili 02-11-2022 influenza virus vacc ine, unspecified formulation Nette Kent LINER CHECKER.SORTING SUPERVISOR Work Phone: [facility] 06-14-2020 Michael SARS-COV-2 (COVID-19) vaccine, vector non-replicating, recombinant spike protein-[id number], preservative free, 0.5 mL (UCH=370) Maria Fernanda Evans LINER CHECKER-SORTING SUPERVISOR Work Phone: [facility] 01-07-2010 influenza virus vacc ine, unspecified formulation Chelita Oliveira PA-C Work Phone: [facility] Payers Date Payer Category Payer Private Health Insurance [facility] CCN [employer] [id number] 2020-Present [phone] [address] [place] [address] PPO [id number] 2019 Unknown [facility] xx xxxxxxx 2019-Present xxxxxxxxx [id number] 2019 Unknown [id number] 2019 Unknown [facility] xx [id number] 2019-Present [id number]. [id number] 1945 Unknown [id number] 2.16.840.1.359542.3.579. 2.903 1945 Unknown [id number] 2.16.840.1.787363.3.579. 2. 1945 Unknown [id number] 2.16.840.1.610280.3.579. 2.903 1945 Unknown [id number] 2.16.840.1.101075.3.579. 2. 1945 Unknown [id number] 2.16.840.1.739972.3.579. 2.90 1945 Unknown [id number] 2.16.840.1.446263.3.579. 2. 1945 Unknown [id number] 2.840.1.693243.3.579. 2. 1945 Unknown [id number] 2.840.1.256389.3.579. 2. 1945 Unknown [id number] 2..840.1.805181.3.579. 2.65 1945 Unknown [id number] 2.840.1.520545.3.579. 2.65 1945 Unknown [id number] 2.840.1.929008.3.579. 2.65 1945 Unknown [id number] 2.16.840.1.287774.3.579. 2.65 1947 Unknown [id number] 2.16.840.1.643282.3.579. 2.65 1945 Unknown [id number] 2.16.840.1.726293.3.579. 2.65 1945 Unknown [id number] 2.16.840.1.845137.3.579. 2.651 1945 Unknown [id number] 2.16.840.1.980955.3.579. 2.651 Unknown [id number] Social History Date Type Detail Facility Start: 05-10-2019 End: 11-26-2020 Tobacco smoking status NHIS Never smoker [facility] Start: 05-10-2019 End: 06-27-2019 Alcohol intake Current drinker of alcohol (finding) [facility] Start: 05-10-2019 [facility] Start: 1945 Sex Assigned At Not on file O [facility] Start: 06-27-2019 End: 02-14-2023 Tobacco use and exposure Never used [facility] Start: 11-26-2020 End: 02-14-2023 Alcohol intake Ex-drinker (finding) [facility] Work Phone: Exposure to SARS-CoV-2 (event) Not sure [facility] Tobacco smoking status PAIS Tobacco smoking consumption unknown [facility] Start: 11-05-2015 End: 02-14-2023 Tobacco smoking status NHIS Ex-smoker [facility] End: 11-05-1979 History of tobacco use Current smoker [facility] End: 11-05-1979 History of tobacco use Cigarette Smoker [facility] Start: 12-22-2022 End: 02-14-2023 Alcohol intake [facility] Start: 12-22-2022 End: 02-14-2023 Tobacco use panel [facility] National Score (1-100), lower number is lower risk 76 [facility] Clinical Notes 12-01-2020 to 03-04-2023 Telephone Encounter - Williams Contreras MD - 03/04/2023 4:11 PM ESTNette Holt APRN.CNP - 02/14/2023 8:55 AM Chelita Guerra PA- C - 12/22/2022 8:47 AM EDT Note Date & Type Note Facility 03-04-2023 Miscellaneous Notes FOLLOW UP ENDOSCOPY - RESULTS AND RECOMMENDATIONS NAME: Brandon Kulkarni CLINIC NO.: [id number] : 1945 DATE: March 04, 2023 PRIMARY CARE PROVIDER: [facility] REFERRING PHYSICIAN: Chelita Kulkarni is a patient referred for endoscopy for screening colonoscopy with a history of prior colon polyp removal. I performed lower endoscopy on March 02, 2023. The patient was found to have: Lower Endoscopy Impression: - One 18 mm polyp in the cecum, removed piecemeal using a hot snare. Resected and retrieved. Tattooed. Clip (MR conditional) was placed. Treated by tumor destruction. - One small polyp at the hepatic flexure, removed with a cold biopsy forceps. Resected and retrieved. - Four medium polyps in the transverse colon and in the ascending colon, removed with a hot snare. Resected and retrieved. Pathology demonstrated: FINAL DIAGNOSIS A. Hepatic flexure, polypectomy: - Fragments of tubular adenoma. B. Cecum, polypectomy: - Fragments of tubular adenoma. C. Ascending colon, polypectomy: - Fragments of tubular adenoma. D. Transverse colon, polypectomy: - Cauterized colonic mucosa, favor cauterized tubular adenoma. IMPRESSION: Multiple adenomatous polyps including a larger cecal polyp removed in piecemeal fashion PLAN: INSTRUCTIONS FOLLOWING A POLYP FOUND AT COLONOSCOPY You were found to have adenomatous colon polyps. I recommend you undergo repeat endoscopy in 1 years. If you note bleeding, change in bowel habits, or other suspicious colon related symptoms before that time, those symptoms should be evaluated as necessary. If you have any difficulties or concerns, you should contact our office immediately. I plan to have the patient come back to my office and talk about this in person however if the patient is comfortable knowing he should have a follow-up colonoscopy in 1 year that is reasonable. The patient is instructed to follow-up with me as needed I have instructed my staff to forward the above information to the patient and to the appropriate providers documented in this encounter [facility] 02-14-2023 Instructions Nette Kent APRN.SORTING SUPERVISOR - 02/14/2023 8:59 AM EST PATIENT PREOPERATIVE INSTRUCTIONS Williams Contreras MD has scheduled you for your procedure at this surgery center: [facility]: [phone] -- [address] [address]. Please read below carefully for your personalized instructions. Dietary Restrictions: - Follow bowel prep instructions: clear liquids need to be stopped 2 hours prior to schedule arrival at facility Medications: Unless instructed differently below, stay on all of your medications until your surgery. If you start any new medications after today's visit, please contact your surgeon. Pre-Surgery Med Instructions Medication Instructions ferrous gluconate 324 mg (37.5 mg iron) tablet Do not take the day of surgery aspirin, enteric coated (ASPIRIN, ENTERIC COATED) 81 mg EC tablet Take the day of surgery with a small sip of water gabapentin (NEURONTIN) 100 mg capsule Take the day of surgery with a small sip of water predniSONE (DELTASONE) 10 mg tablet Take the day of surgery with a small sip of water methotrexate 2.5 mg tablet Take the day of surgery with a small sip of water allopurinol (ZYLOPRIM) 100 mg tablet Do not take the day of surgery doxazosin (CARDURA) 1 mg tablet Take the day of surgery with a small sip of water cholecalciferol (VITAMIN D3) 50 mcg (2,000 unit) tablet Stop 7 days before surgery folic acid 1 mg tablet Stop 7 days before surgery metoprolol succinate ER (TOPROL XL) 50 mg 24 hr tablet Take the day of surgery with a small sip of water colchicine 0.6 mg tablet Do not take the day of surgery rosuvastatin (CRESTOR) 20 mg tablet Take the day of surgery with a small sip of water PEG 3127-Wozadutccdq-Osg C (MOVIPREP) 100-7.5-2.691 gram furosemide (LASIX) 40 mg tablet Do not take the day of surgery pantoprazole DR (PROTONIX) 40 mg tablet Take the day of surgery with a small sip of water potassium chloride ER (K-DUR, KLOR-CON) 10 mEq tablet Take the day of surgery with a small sip of water SODIUM CHLORIDE OPHTHALMIC Take the day of surgery with a small sip of water apixaban (ELIQUIS) 5 mg tab tab(s) Take the day of surgery with a small sip of water If you take any medications for erectile dysfunction-Cialis (Tadalafil), Levitra, Staxyn (Vardenafil) Viagra (Sildenenafil please do not take these for 48 hours before surgery. If you start any new medications after today's visit, please contact the surgeon's office. Blood Thinning Medications: - Stop NSAIDS (Ibuprofen, Advil, Aleve, Motrin, Celebrex, Mobic, etc.) 7 days before surgery, as directed by your surgeon. - Do NOT stop aspirin or other anticoagulants without consulting with your finance executive or prescribing physician. - Stop Vitamin E, ALL multi-vitamins, herbals and dietary supplements 7 days before surgery. - You may take Tylenol (Acetaminophen) or any of your pain medications that do not contain aspirin or NSAIDS as needed. Important Reminders: - Candy, mints, gum and tobacco products are NOT permitted the morning of surgery. - Hearing aids, dentures and glasses may be worn the morning of surgery. - NO jewelry, body piercings, makeup, hairpins or contacts are to be worn the day of surgery. If you develop symptoms such as a fever, cold, or flu, or have other changes to your health within TWO DAYS of scheduled surgery or the morning of surgery, please contact the surgery center above. Personal Belongings: -Please have photo ID and insurance cards. -If you do not have a copy of advance directives on file with us, please bring a copy with you on the day of surgery. - Leave ALL valuables and money at home or with family members. For Outpatient Procedures: - YOU MUST HAVE A RESPONSIBLE SAMPLE SELECTOR TAKE YOU HOME. A STAFF COMMAND AND CONTROL OFFICER OR GYMNASIUM TEACHER CANNOT BE MADE A RESPONSIBLE SAMPLE SELECTOR. - We recommend that a responsible person stays with you overnight to take care of you. - You cannot stay in a hotel alone after outpatient surgery. You will not be permitted to have your surgery, if you do not have someone to take care of you. Arrival Time for Surgery: - The Surgery Center or hospital where you are having surgery will call the afternoon before surgery (or Tuesday for Tuesday surgery) with a scheduled arrival time. - If you have not heard by 4 pm, please contact the surgery center above. Please be aware that emergency situations arise, which may delay or change your surgical time. If this happens, we will notify you as soon as possible and regret any inconvenience. If you already have an Advance Directive, please fax a copy to [phone] or email to for it to be added to your chart. If you do not have an Advance Directive, you can find the appropriate form and more information at [email or web address]. We recommend that you complete the Advance Directive form found on the website and bring it with you the day of your surgery. It can be witnessed and scanned into your chart that day. Nette Kent APRN.SORTING SUPERVISOR documented in this encounter [facility] 02-14-2023 History and physical note Images from the original note were not included. HISTORY AND PHYSICAL EXAMINATION SERVICE DATE: 02/14/2023 SERVICE TIME: 1:34 PM PRIMARY CARE PHYSICIAN: Abran Esparza MD, MD Assessment Patient has the following medical conditions which may affect marisa-operative course: Coronary artery disease involving [place] coronary artery of [place] heart without angina pectoris Assessment: s/p stents, daily Eliquis and ASA, following [facility] 08/31/2022 Jesse Grace CNP Essential hypertension Assessment: controlled on rx Last 14 BP Last 14 Encounter BP Readings: Date: BP: 02/14/2023 122/64 12/22/2022 124/74 11/29/2016 140/80 05/31/2016 144/78 01/22/2016 147/85 12/03/2015 163/78 11/28/2015 122/64 11/05/2015 125/60 11/05/2015 145/77 Gastroesophageal reflux disease without esophagitis Assessment: controlled on rx Hypercholesterolemia Assessment: c/w statin Chronic a-fib (HCC) Assessment: rate controlled, daily Xarelto, instructions given to hold 3 days prior to surgery, pt verbalized understanding. History of pacemaker Assessment: 11 years battery life remaining 08/31/2022 Device Interrogation Iron deficiency anemia due to chronic blood loss Assessment: on rx, Hgb 11.4 11/25/2022 in Clinic sync Chronic diastolic heart failure (HCC) Assessment: controlled on rx, echo 02/2022 EF 55-60% Rheumatoid arthritis, unspecified (HCC) Assessment: Daily Prednisone, MTX, following [facility], Dr. Larios Hypokalemia Assessment: on rx. Potassium 4.0 11/25/2022 in clinic sync Other spondylosis, lumbar region Assessment: chronic back pain, controlled on rx Class 1 obesity due to excess calories with serious comorbidity and body mass index (BMI) of 31.0 to 31.9 in adult Assessment: Body mass index is 31.87 kg/m . Erazo Activity Status Index: METS: Climb a flight of stairs or walk up a hill (5.50 METs) DASI Score: 5.5 Patient denies any chest pain or undue shortness of breath with the above physical activity. Clinical Frailty Scale: 3. Well, with treated comorbid disease STOP-Bang Score: Snores loudly Has or is being treated for high blood pressure Patient over 50 years old Has a large neck Male patient Denies feeling tired, fatigued, or sleepy during the daytime Has not been observed to stop breathing or choking/gasping during sleep BMI less than or equal to 35 kg/m^2 STOP-Bang Score: 5 [id number] Score: Age: >=75 Sex: male CHF history: Yes Hypertension history: Yes Stroke/TIA/thromboembolism history: No Vascular disease history: Yes Diabetes history: Yes [id number] Score: 6 ARISCAT Score: Age: 51-80 Preoperative SpO2: >=96% Respiratory infection in the last month: No Preoperative anemia: Yes Surgical incision: peripheral Duration of surgery: <2 hrs Emergency procedure: No ARISCAT Score: 14 ANESTHESIA FINDINGS: Intubation History: No history of difficult intubation Significant Anesthesia Considerations: none Airway History: No history of difficult airway I - PHYSICAL EVALUATION AIRWAY Patient intubated: No. Tracheostomy tube not present Mallampati: III. TM distance: >3 FB. Neck ROM: full ROM without neurological symptoms. Mouth opening: adequate. Short neck: no. Thick neck: no Gonzalez present: no Lip Bite Test: I Microretrognathia/Micronagthia/ Recessed Chin: No DENTAL Dentures, upper: complete. Dentures, lower: complete. II - ANESTHESIA PLAN Anesthetic Plan: other Beta Rufino Monitoring Plan Post Procedure Analgesic Plan Informed Consent Anesthetic risks, benefits, alternatives, personnel and consent discussed: yes. Patient / Responsible Alliance Party agrees to proceed: yes Patient / Surrogate agrees to blood products: blood products not planned Discussed the possibility of lip / dental damage: yes REASON FOR VISIT: Brandon Kulkarni is a 77 year old male who is scheduled for colonoscopy at the request of Dr. Williams Contreras for consultation. My final recommendation will be communicated back to the requesting physician by way of shared medical record or letter. Subjective The patient has the following: ACTIVE PROBLEM LIST Essential Hypertension Gastroesophageal Reflux Disease Without Esophagitis Pre-Operative Cardiovascular Exam, New Ekg Abnormalities C/W Ischemia Hypercholesterolemia Class 1 Obesity Due to Excess Calories With Serious Comorbidity and Body Mass Index (Bmi) of 31.0 to 31.9 in Adult Chronic Anticoagulation Chronic A-Fib (Hcc) Coronary Artery Disease Involving [place] Coronary Artery of [place] Heart Without Angina Pectoris Chronic Diastolic Heart Failure (Hcc) Iron Deficiency Anemia Due to Chronic Blood Loss Other Spondylosis, Lumbar Region Rheumatoid Arthritis, Unspecified (Hcc) History of Pacemaker Hypokalemia COVID-19 Immunization Status Overdue - Covid-19 Vaccine (2 - Michael risk series) Overdue since 07/12/2020 06/14/2020 Imm Admin: COVID-19 vaccine (MICHAEL) CHIEF COMPLAINT: Pre-op exam HPI: Brandon Kulkarni is a 77 year old seen for PAC due to scheduled above surgery because h/o colon polys. 12/22/2022, [address]ita Pride Dr. HPI: The patient is a 77 year old male referred for endoscopy. Brandon notes no colon complaints. Patient denies any change in bowel habits, weight changes, blood in stools, black tarry stools or abdominal pain. NOTES family history of colon cancer in a first-degree relative. The patient notes no upper GI complaints. Brandon has undergone prior endoscopy. Last colonoscopy 06/11/2019, scanned reports reviewed. Procedure done under monitored anesthetic care. Patient was found to have two small polyps in the descending colon which were removed, as well as a 40 mm polyp at the appendiceal orifice which was noted to be carpet-like in appearance and incompletely excised due to its size. Pathology of the descending colon polyps returned as tubular adenomas, and the larger polyp came back as a tubulovillous adenoma. Per Gastro noted reviewed in Care Everywhere 06/27/19, patient was instructed to have a follow-up colonoscopy in 3 years. Patient recalls that he had a significant post-polypectomy bleed after last colonoscopy requiring an ED visit and had to go off of blood thinners short-term, records not currently available for review. Patient's medical history is significant for diabetes mellitus, atrial fibrillation, s/p pacemaker placement and cardiac stents, hypertension, hyperlipidemia. Patient follows with Dr. Esparza in primary care and Dr. Richardson in cardiology. Patient denies chest pain, shortness of breath or recent hospitalizations. REVIEW OF SYSTEMS: General: No weight loss, malaise or fevers. Neurological: No history of TIA's, stroke, HORSE SHOW JUDGE tumor, impaired sensorium, hemiplegia, paraplegia or quadraplegia. No neurological symptoms or problems. Respiratory: No history of current cough or dyspnea, or pneumonia in the past 6 weeks. No history of respiratory/pulmonary symptoms or problems. Cardiovascular: Positive for: AICD/PPM, anticoagulation therapy (Eliquis, ASA), atrial fibrillation, CAD, hyperlipidemia and hypertension Patient's last office visit The following tests and/or procedures were performed: cardiac stents. Negative for: arrhythmia, chest pain, CHF, congenital heart defect, DVT/PE, recent NV, murmur/valvular heart disease, open heart surgery and valve surgery. GI: See HPI. Positive for: GERD (on rx) Negative for: abdominal pain, dysphagia, hepatitis, irritable bowel syndrome, inflammatory bowel disease, liver disease, nausea, pancreatitis, vomiting and ETOH >2 drinks/day. : No history of dysuria, frequency or incontinence, stones or chronic kidney disease. No difficulty urinating, nocturia > 1 time per night or hematuria. Endocrine: Positive for: diabetes mellitus. Patient's diabetes mellitus is controlled by diet. Hematology: Positive for: chronic anti-coagulation/platelet meds. Patient is on anti-coagulation/platelet medication(s): DOAC and Aspirin. Negative for: anemia, bruises/bleeds easily and transfusion of at least 4 units within 72 hours prior to surgery. Oncology: No history of CA metastasis, chemo within 30 days, or radiotherapy within 90 days. No history of oncological symptoms or problems. Psych: No history of psychiatric symptoms or problems. Musculoskeletal: +left knee replacement +gout, on rx, effects ankles Positive for: back pain and rheumatoid arthritis. 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 Skin: Negative for lesions, rash and itching. PAST MEDICAL HISTORY Diagnosis Date A-fib (HCC) Acid reflux Bursitis of left elbow Diabetes mellitus (HCC) Gout Hyperlipemia Hypertension Knee pain Lumbar spondylosis Lymphocytic colitis Macular degeneration Osteopenia Paroxysmal atrial fibrillation (HCC) Severe scoliosis Spine degeneration lumbar Syncope PAST SURGICAL HISTORY Procedure Laterality Date ANESTH,PACEMAKER INSERTION 2019 APPENDECTOMY age 12 ARTHRP KNE CONDYLE&PLATU MEDIAL&LAT COMPARTMENTS 04/04/2010 left CATARACT EXTRACTION W/ INTRAOCULAR LENS IMPLANT HX bilateral COLONOSCOPY 04/04/2009 COLONOSCOPY FLX DX W/COLLJ SPEC WHEN PFRMD 12/10/2015 Colonoscopy (MAC) COLONOSCOPY SCREENING 2019 ESOPHAGOGASTRODUODENOSCOPY TRANSORAL DIAGNOSTIC 12/10/2015 EGD (MAC) SKIN BX, 1 LESION left cheek STENTS (SPECIFY) cardiac stents x 2 2020 FAMILY HISTORY Problem Relation Age of Onset Stroke Mother Alzheimer's Disease Mother Colon Cancer Brother Cancer Sister brain Glaucoma No Family History Macular Degen No Family History Detached Retina No Family History Social History Tobacco Use Smoking status: Former Types: Cigarettes Quit date: 11/05/1979 Years since quittin.3 Smokeless tobacco: Never Vaping Use Vaping Use: Never used Substance Use Topics Alcohol use: Not Currently Alcohol/week: 2.0 standard drinks of alcohol Types: 2 Cans of Beer (12oz) per week Drug use: No Prior to Admission medications as of 02/14/23 0855 Medication Sig Last Dose Taking ferrous gluconate 324 mg (37.5 mg iron) tablet Take 324 mg by mouth once daily. Taking Yes aspirin, enteric coated (ASPIRIN, ENTERIC COATED) 81 mg EC tablet Take 81 mg by mouth once daily. Taking Yes gabapentin (NEURONTIN) 100 mg capsule Take 100 mg by mouth two times a day. Taking Yes predniSONE (DELTASONE) 10 mg tablet 10 mg as needed. Taking Yes methotrexate 2.5 mg tablet 15 mg. Taking Yes allopurinol (ZYLOPRIM) 100 mg tablet 100 mg once daily. Taking Yes doxazosin (CARDURA) 1 mg tablet Take 1 tablet by mouth every morning. Taking Yes cholecalciferol (VITAMIN D3) 50 mcg (2,000 unit) tablet Take 1 tablet by mouth once daily. Taking Yes folic acid 1 mg tablet Take 2 tablets by mouth once daily. Taking Yes metoprolol succinate ER (TOPROL XL) 50 mg 24 hr tablet Take 1 tablet by mouth twice daily. Taking Yes colchicine 0.6 mg tablet Take by mouth. Taking Yes rosuvastatin (CRESTOR) 20 mg tablet Take 20 mg by mouth once daily. Taking Yes PEG 6568-Oyvlmitimxc-Djt C (MOVIPREP) 100-7.5-2.691 gram Take by mouth one time only. Will take for colon prep Taking Yes furosemide (LASIX) 40 mg tablet Take 40 mg by mouth. Taking Yes pantoprazole DR (PROTONIX) 40 mg tablet Take 40 mg by mouth. Taking Yes potassium chloride ER (K-DUR, KLOR-CON) 10 mEq tablet Take 10 mEq by mouth. Taking Yes SODIUM CHLORIDE OPHTHALMIC Use in eyes. Taking Yes apixaban (ELIQUIS) 5 mg tab tab(s) Take 5 mg by mouth twice daily. Taking Yes MULTIVITAMIN ORAL TAKE 1 CAPSULE BY MOUTH TWICE A DAY FOR MACULAR DEGENERATION Patient not taking: Reported on 02/14/2023 Not Taking acetaminophen (TYLENOL) 325 mg tablet TAKE ONE TO TWO TABLETS BY MOUTH FOUR TIMES A DAY NEEDED FOR PAIN. isosorbide dinitrate (ISORDIL) 30 mg tablet Take 1 tablet by mouth three times daily. Patient not taking: Reported on 02/14/2023 Not Taking fluticasone prp-sod.chl,bicarb 50 mcg- 0.9 % ksps Use 50 mcg in the nose once daily. Patient not taking: Reported on 02/14/2023 Not Taking amLODIPine-benazepril (LOTREL) 5-10 mg per capsule Take 1 capsule by mouth. Patient not taking: Reported on 12/22/2022 Carboxymethylcellulose-Glycern (OPTIVE) 0.5-0.9 % drop Use in eyes. cyclobenzaprine (FLEXERIL) 10 mg tablet Take 10 mg by mouth. Patient not taking: Reported on 12/22/2022 Not Taking diclofenac sodium (VOLTAREN) 1 % topical gel Apply to affected area. Patient not taking: Reported on 02/14/2023 Not Taking ferrous sulfate 325 mg (65 mg iron) tablet Take 325 mg by mouth. Patient not taking: Reported on 02/14/2023 Not Taking hydrALAZINE (APRESOLINE) 10 mg tablet Take 10 mg by mouth. Patient not taking: Reported on 12/22/2022 Not Taking atorvastatin (LIPITOR) 40 mg tablet Take 1 tablet by mouth once daily. Patient not taking: Reported on 02/19/2020 loratadine (CLARITIN) 10 mg tablet Take 10 mg by mouth as needed. Patient not taking: Reported on 12/22/2022 Not Taking NIFEdipine XL (ADALAT CC, PROCARDIA XL) 60 mg 24 hr tablet Take 60 mg by mouth twice daily. Patient not taking: Reported on 12/22/2022 Not Taking omeprazole (PRILOSEC) 20 mg capsule Take 20 mg by mouth daily before breakfast. Patient not taking: Reported on 12/22/2022 Not Taking No medication comments found. ALLERGIES Allergen Reactions Georgi Inhibitors Anaphylaxis Atorvastatin Unknown Lisinopril Swelling Penicillin Rash Objective PHYSICAL EXAM: General: alert and oriented (x3), healthy appearance and obese. Pertinent negatives noted - not distressed. Skin: normal color, no rash or lesions. HEENT: EOM intact and pupils equal round. Pertinent negatives noted - no carotid bruit. Cardiovascular: regular rate and rhythm, normal S1 and S2, no rub, murmurs, or gallop. Respiratory: normal breath sounds, no wheezes or crackles. No chest wall deformity or tenderness. Abdomen: soft. Pertinent negatives noted - not tender. Extremities: no deformity, no edema or tenderness, no joint swelling or clubbing. Neurological: normal cognition and motor skills. Gait normal. No weakness or sensory deficit. PAIN ASSESSMENT: VITALS: BP 122/64 Pulse 60 Temp (Src) 98.6 (Temporal) Resp 14 Ht 6' 3 (1.91m) Wt 255 lb (115.7kg) SpO2 99% BMI 31.87 kg/(m^2). Diagnostic tests reviewed for today's visit: Lab Value Units Date High Low HB No results within date range. HCT No results within date range. WBC No results within date range. PLT No results within date range. NA No results within date range. K No results within date range. GLUC No results within date range. BUN No results within date range. CREAT No results within date range. PTSEC No results within date range. INR No results within date range. APTT No results within date range. ALT No results within date range. AST No results within date range. TBILI No results within date range. TSH No results within date range. Lab Value Units Date High Low HCGQT No results within date range. UHCG No results within date range. HCG, BODY* No results within date range. Lab Value Units Date High Low ABORHD No results within date range. ABSCREEN No results within date range. No results found for: HBA1C No results found for this or any previous visit (from the past 8760 hour(s)). No results found for this or any previous visit (from the past 61900 hour(s)). Prepared for Surgery: optimally prepared for surgery. CONSULTS: Patient does not require consults for optimization at this time Planned Anesthetic: other anesthesia choice The Following Tests/Procedures Have Been Initiated: Orders Placed This Encounter ferrous gluconate 324 mg (37.5 mg iron) tablet Sig: Take 324 mg by mouth once daily. aspirin, enteric coated (ASPIRIN, ENTERIC COATED) 81 mg EC tablet Sig: Take 81 mg by mouth once daily. gabapentin (NEURONTIN) 100 mg capsule Sig: Take 100 mg by mouth two times a day. Instructions Given to Patient: Instructions located in the after visit summary. Patient given verbal and written preop instructions and voices comprehension and compliance. SIGNATURE: Nette Kent APRN.CNP PATIENT NAME: Brandon Kulkarni DATE: February 14, 2023 TIME: 8:55 AM PAGER/CONTACT #: documented in this encounter [facility] 02-07-2023 Miscellaneous Notes Called and spoke with patient regarding missed PACC appt at 1040am. He states he forgot he had an appt today and would like to get it rescheduled. Please reach out to patient. Colonoscopy 03/02/23. Destiny Agarwal LPN documented in this encounter [facility] 12-22-2022 Note HNO ID: [id number] Author: Chelita Oliveira PA-C Service: ? Author Type: Physician Hand Funnel Coater Type: Progress Notes Filed: 12/22/2022 10:54 AM Note Text: HISTORY AND PHYSICAL Brandon Kulkarni 1945 REFERRING PHYSICIAN: Abby Llanosan* CHIEF COMPLAINT: Consult (colonoscopy) HPI: The patient is a 77 year old male referred for endoscopy. Brandon notes no colon complaints. Patient denies any change in bowel habits, weight changes, blood in stools, black tarry stools or abdominal pain. NOTES family history of colon cancer in a first-degree relative. The patient notes no upper GI complaints. Brandon has undergone prior endoscopy. Last colonoscopy 06/11/2019, scanned reports reviewed. Procedure done under monitored anesthetic care. Patient was found to have two small polyps in the descending colon which were removed, as well as a 40 mm polyp at the appendiceal orifice which was noted to be carpet-like in appearance and incompletely excised due to its size. Pathology of the descending colon polyps returned as tubular adenomas, and the larger polyp came back as a tubulovillous adenoma. Per Gastro noted reviewed in Care Everywhere 06/27/19, patient was instructed to have a follow-up colonoscopy in 3 years. Patient recalls that he had a significant post-polypectomy bleed after last colonoscopy requiring an ED visit and had to go off of blood thinners short-term, records not currently available for review. Patient's medical history is significant for diabetes mellitus, atrial fibrillation, s/p pacemaker placement and cardiac stents, hypertension, hyperlipidemia. Patient follows with Dr. Esparza in primary care and Dr. Richardson in cardiology. Patient denies chest pain, shortness of breath or recent hospitalizations. PAST MEDICAL HISTORY Diagnosis Date A-fib (HCC) Acid reflux Bursitis of left elbow Diabetes mellitus (HCC) Gout Hyperlipemia Hypertension Knee pain Lumbar spondylosis Lymphocytic colitis Macular degeneration Osteopenia Paroxysmal atrial fibrillation (HCC) Severe scoliosis Spine degeneration lumbar Syncope PAST SURGICAL HISTORY Procedure Laterality Date APPENDECTOMY age 12 ARTHRP KNE CONDYLEANDPLATU MEDIALANDLAT COMPARTMENTS 04/04/2010 left CATARACT EXTRACTION W/ INTRAOCULAR LENS IMPLANT HX bilateral COLONOSCOPY 04/04/2009 COLONOSCOPY FLX DX W/COLLJ SPEC WHEN PFRMD 12/10/2015 Colonoscopy (MAC) COLONOSCOPY SCREENING 2019 ESOPHAGOGASTRODUODENOSCOPY TRANSORAL DIAGNOSTIC 12/10/2015 EGD (MAC) Current Outpatient Medications Medication Sig predniSONE (DELTASONE) 10 mg tablet 10 mg. methotrexate 2.5 mg tablet 15 mg. Carboxymethylcellulose-Glycern (OPTIVE) 0.5-0.9 % drop Use in eyes. diclofenac sodium (VOLTAREN) 1 % topical gel Apply to affected area. ferrous sulfate 325 mg (65 mg iron) tablet Take 325 mg by mouth. furosemide (LASIX) 40 mg tablet Take 40 mg by mouth. potassium chloride ER (K-DUR, KLOR-CON) 10 mEq tablet Take 10 mEq by mouth. SODIUM CHLORIDE OPHTHALMIC Use in eyes. apixaban (ELIQUIS) 5 mg tab tab(s) Take 5 mg by mouth twice daily. amLODIPine-benazepril (LOTREL) 5-10 mg per capsule Take 1 capsule by mouth. cyclobenzaprine (FLEXERIL) 10 mg tablet Take 10 mg by mouth. hydrALAZINE (APRESOLINE) 10 mg tablet Take [address] (PROTONIX) 40 mg tablet Take 40 mg by mouth. atorvastatin (LIPITOR) 40 mg tablet Take 1 tablet by mouth once daily. (Patient not taking: Reported on 02/19/2020) loratadine (CLARITIN) 10 mg tablet Take 10 mg by mouth as needed. metoprolol tartrate, short acting, (LOPRESSOR) 50 mg tablet Take 50 mg by mouth twice daily. NIFEdipine XL (ADALAT CC, PROCARDIA XL) 60 mg 24 hr tablet Take 60 mg by mouth twice daily. omeprazole (PRILOSEC) 20 mg capsule Take 20 mg by mouth daily before breakfast. No current facility-administered medications for this visit. ALLERGIES: Georgi Inhibitors, Atorvastatin, Lisinopril, and Penicillin PERSONAL HISTORY: Social History Tobacco Use Smoking status: Former Types: Cigarettes Quit date: 11/05/1979 Years since quittin.1 Smokeless tobacco: Never Vaping Use Vaping Use: Never used Substance Use Topics Alcohol use: Not Currently Alcohol/week: 2.0 standard drinks of alcohol Types: 2 Cans of Beer (12oz) per week Drug use: No FAMILY HISTORY: FAMILY HISTORY Problem Relation Age of Onset Stroke Mother Alzheimer's Disease Mother Colon Cancer Brother Cancer Sister brain Glaucoma No Family History Macular Degen No Family History Detached Retina No Family History REVIEW OF SYMPTOMS: The review of systems data was entered by the nurse and reviewed by ct Nursing Notes: Jackelin Retana RN 12/22/2022 8:46 AM Signed REVIEW OF SYSTEMS: General: The patient denies fatigue, denies weight loss, denies weight gain, denies feeling hot, and denies feelings of cold. Eyes: The patient denies glaucoma, denies eye injury/s (more content not included)... [facility] 12-22-2022 History of Presen t illness Narrative HISTORY AND PHYSICAL Brandon Kulkarni 1945 REFERRING PHYSICIAN: Administration, Troy* CHIEF COMPLAINT: Consult (colonoscopy) HPI: The patient is a 77 year old male referred for endoscopy. Brandon notes no colon complaints. Patient denies any change in bowel habits, weight changes, blood in stools, black tarry stools or abdominal pain. NOTES family history of colon cancer in a first-degree relative. The patient notes no upper GI complaints. Brandon has undergone prior endoscopy. Last colonoscopy 06/11/2019, scanned reports reviewed. Procedure done under monitored anesthetic care. Patient was found to have two small polyps in the descending colon which were removed, as well as a 40 mm polyp at the appendiceal orifice which was noted to be carpet-like in appearance and incompletely excised due to its size. Pathology of the descending colon polyps returned as tubular adenomas, and the larger polyp came back as a tubulovillous adenoma. Per Gastro noted reviewed in Care Everywhere 06/27/19, patient was instructed to have a follow-up colonoscopy in 3 years. Patient recalls that he had a significant post-polypectomy bleed after last colonoscopy requiring an ED visit and had to go off of blood thinners short-term, records not currently available for review. Patient's medical history is significant for diabetes mellitus, atrial fibrillation, s/p pacemaker placement and cardiac stents, hypertension, hyperlipidemia. Patient follows with Dr. Esparza in primary care and Dr. Richardson in cardiology. Patient denies chest pain, shortness of breath or recent hospitalizations. PAST MEDICAL HISTORY Diagnosis Date A-fib (HCC) Acid reflux Bursitis of left elbow Diabetes mellitus (HCC) Gout Hyperlipemia Hypertension Knee pain Lumbar spondylosis Lymphocytic colitis Macular degeneration Osteopenia Paroxysmal atrial fibrillation (HCC) Severe scoliosis Spine degeneration lumbar Syncope PAST SURGICAL HISTORY Procedure Laterality Date APPENDECTOMY age 12 ARTHRP KNE CONDYLE&PLATU MEDIAL&LAT COMPARTMENTS 04/04/2010 left CATARACT EXTRACTION W/ INTRAOCULAR LENS IMPLANT HX bilateral COLONOSCOPY 04/04/2009 COLONOSCOPY FLX DX W/COLLJ SPEC WHEN PFRMD 12/10/2015 Colonoscopy (MAC) COLONOSCOPY SCREENING 2019 ESOPHAGOGASTRODUODENOSCOPY TRANSORAL DIAGNOSTIC 12/10/2015 EGD (MAC) Current Outpatient Medications Medication Sig predniSONE (DELTASONE) 10 mg tablet 10 mg. methotrexate 2.5 mg tablet 15 mg. Carboxymethylcellulose-Glycern (OPTIVE) 0.5-0.9 % drop Use in eyes. diclofenac sodium (VOLTAREN) 1 % topical gel Apply to affected area. ferrous sulfate 325 mg (65 mg iron) tablet Take 325 mg by mouth. furosemide (LASIX) 40 mg tablet Take 40 mg by mouth. potassium chloride ER (K-DUR, KLOR-CON) 10 mEq tablet Take 10 mEq by mouth. SODIUM CHLORIDE OPHTHALMIC Use in eyes. apixaban (ELIQUIS) 5 mg tab tab(s) Take 5 mg by mouth twice daily. amLODIPine-benazepril (LOTREL) 5-10 mg per capsule Take 1 capsule by mouth. cyclobenzaprine (FLEXERIL) 10 mg tablet Take 10 mg by mouth. hydrALAZINE (APRESOLINE) 10 mg tablet Take [address] (PROTONIX) 40 mg tablet Take 40 mg by mouth. atorvastatin (LIPITOR) 40 mg tablet Take 1 tablet by mouth once daily. (Patient not taking: Reported on 02/19/2020) loratadine (CLARITIN) 10 mg tablet Take 10 mg by mouth as needed. metoprolol tartrate, short acting, (LOPRESSOR) 50 mg tablet Take 50 mg by mouth twice daily. NIFEdipine XL (ADALAT CC, PROCARDIA XL) 60 mg 24 hr tablet Take 60 mg by mouth twice daily. omeprazole (PRILOSEC) 20 mg capsule Take 20 mg by mouth daily before breakfast. No current facility-administered medications for this visit. ALLERGIES: Georgi Inhibitors, Atorvastatin, Lisinopril, and Penicillin PERSONAL HISTORY: Social History Tobacco Use Smoking status: Former Types: Cigarettes Quit date: 11/05/1979 Years since quittin.1 Smokeless tobacco: Never Vaping Use Vaping Use: Never used Substance Use Topics Alcohol use: Not Currently Alcohol/week: 2.0 standard drinks of alcohol Types: 2 Cans of Beer (12oz) per week Drug use: No FAMILY HISTORY: FAMILY HISTORY Problem Relation Age of Onset Stroke Mother Alzheimer's Disease Mother Colon Cancer Brother Cancer Sister brain Glaucoma No Family History Macular Degen No Family History Detached Retina No Family History REVIEW OF SYMPTOMS: The review of systems data was entered by the nurse and reviewed by ct Nursing Notes: Jackelin Retana RN 12/22/2022 8:46 AM Signed REVIEW OF SYSTEMS: General: The patient denies fatigue, denies weight loss, denies weight gain, denies feeling hot, and denies feelings of cold. Eyes: The patient denies glaucoma, denies eye injury/surgery, wears glasses or contacts. Ear/Nose/Throat: The patient NOTES allergies, denies hayfever, denies ear infections, and denies bloody noses. Cardiovascular: The patient denies chest pain, NOTES heart disease, denies high blood pressure,NOTES cardiac stent, denies prior heart attack, NOTES irregular heart beat, denies high cholesterol, denies poor circulation, denies heart failure, other cardiac issues, denies claudication, denies cold feet, denies peripheral arterial stent. Respiratory: The patient denies tuberculosis, denies pneumonia, denies frequent cough, denies pulmonary embolism, denies shortness of breath, and denies coughing up blood. Gastrointestinal: The patient denies difficulty swallowing, denies acid reflux, denies ulcers, denies vomiting, denies jaundice/hepatitis, denies gallbladder problems, denies black or tarry stools, denies hemorrhoids, denies bleeding from rectum, denies diverticulitis, denies constipation, denies diarrhea, denies loss of stool control, and denies hernias. Kidney/Bladder: The patient denies kidney stones, denies urine infections, and denies bloody urine. Skin: The patient denies a history of skin cancer, denies bleeding/changing moles, and denies a history of skin rash. Neurologic: The patient denies a history of epilepsy/convulsions, denies headaches, denies head/spinal injuries, and denies stroke/TIA. Psychiatric: The patient denies psychiatric medications, denies depression, and denies voices, denies substance abuse. Endocrine: The patient denies thyroid disorders, denies diabetes, and denies hormonal problems. Hematologic: The patient denies a history of bruising, denies bleeding, and denies anemia, denies blood clots. Infections: The patient denies a history of measles and mumps, denies rheumatic fever, and denies sexually transmitted diseases. Musculoskeletal: The patient NOTES back pain/injury, denies back problems, denies sciatica, NOTES knee/foot trouble, NOTES arthritis, or NOTES gout. When was patient's last Mammogram screening? N/A Last Colonoscopy: 06/11/2019 Jackelin Retana RN I have confirmed and edited as necessary, the PFSH and ROS obtained by others. Chelita Oliveira PA-C PHYSICAL EXAMINATION: General: The patient is 77 year old male, well nourished, well hydrated in no acute distress. The patient is oriented to time, place, and person. VITALS: Blood pressure 124/74, pulse 62, temperature 36.2 C (97.2 F), height 190.5 cm (6' 3 ), weight 115.3 kg (254 lb 3.2 oz), SpO2 99 %. There is no height or weight on file to calculate BMI. HEENT: Normal cephalic, ataumatic, pupils are equally round, sclera are anicteric, mucous membranes are moist, oropharynx is clear. Neck has no masses, asymmetry or lymphadenopathy. Respiratory: Clear to auscultation and percussion. Normal respiratory excursion and pattern. Cardiac: Examination is regular rate and rhythm. Normal S1/S2 Abdominal exam: Soft, nontender, with no palpable masses. No hepatosplenomegaly. No palpable hernias. Extremities: no clubbing, cyanosis or edema. No adenopathy. LABORATORY VALUES: As Noted RADIOLOGIC STUDIES: As Noted Assessment IMPRESSION: history of colon polyps including a 40 mm ileocecal TVA in 2019 removed piecemeal at outside facility. Family history of colon cancer. History of previous post-polypectomy bleed PLAN: I have reviewed my findings with the surgeon. Will plan for lower endoscopy. We discussed the risks and benefits of the planned endoscopy. I have informed the patient that complications can occur including failure to complete the endoscopy and perforation. The patient had the opportunity to ask questions concerning the planned endoscopy. My staff has also explained the procedure to the patient in understandable terms and has given the patient printed material concerning the procedure. The patient freely consents to surgery. Patient notes already [facility] The patient has medical comorbidities for which we will plan for the procedure to be performed under Monitored Anesthetic Care. 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 Eliana Hi for an opinion regarding colonoscopy. My final recommendations will be communicated back to the requesting physician by way of shared Medical record or letter to requesting physician via US mail. Chelita Oliveira PA-C documented in this encounter [facility] 12-22-2022 Nurse Note REVIEW OF SYSTEMS: General: The patient denies fatigue, denies weight loss, denies weight gain, denies feeling hot, and denies feelings of cold. Eyes: The patient denies glaucoma, denies eye injury/surgery, wears glasses or contacts. Ear/Nose/Throat: The patient NOTES allergies, denies hayfever, denies ear infections, and denies bloody noses. Cardiovascular: The patient denies chest pain, NOTES heart disease, denies high blood pressure,NOTES cardiac stent, denies prior heart attack, NOTES irregular heart beat, denies high cholesterol, denies poor circulation, denies heart failure, other cardiac issues, denies claudication, denies cold feet, denies peripheral arterial stent. Respiratory: The patient denies tuberculosis, denies pneumonia, denies frequent cough, denies pulmonary embolism, denies shortness of breath, and denies coughing up blood. Gastrointestinal: The patient denies difficulty swallowing, denies acid reflux, denies ulcers, denies vomiting, denies jaundice/hepatitis, denies gallbladder problems, denies black or tarry stools, denies hemorrhoids, denies bleeding from rectum, denies diverticulitis, denies constipation, denies diarrhea, denies loss of stool control, and denies hernias. Kidney/Bladder: The patient denies kidney stones, denies urine infections, and denies bloody urine. Skin: The patient denies a history of skin cancer, denies bleeding/changing moles, and denies a history of skin rash. Neurologic: The patient denies a history of epilepsy/convulsions, denies headaches, denies head/spinal injuries, and denies stroke/TIA. Psychiatric: The patient denies psychiatric medications, denies depression, and denies voices, denies substance abuse. Endocrine: The patient denies thyroid disorders, denies diabetes, and denies hormonal problems. Hematologic: The patient denies a history of bruising, denies bleeding, and denies anemia, denies blood clots. Infections: The patient denies a history of measles and mumps, denies rheumatic fever, and denies sexually transmitted diseases. Musculoskeletal: The patient NOTES back pain/injury, denies back problems, denies sciatica, NOTES knee/foot trouble, NOTES arthritis, or NOTES gout. When was patient's last Mammogram screening? N/A Last Colonoscopy: 06/11/2019 Jackelin Retana RN documented in this encounter [facility] 12-03-2020 Note . MICRO - Microbiology PROCEDURE: Blood Culture (bacterial) [*1] SOURCE: Blood BODY SITE: COLLECTED DATE/TIME: 11/26/2020 14:30 EDT RECEIVED DATE/TIME: 11/26/2020 20:46 EDT START DATE/TIME: 11/26/2020 20:46 EDT FREE TEXT SOURCE: aerobic bottle only FINAL REPORTS Final Report [] Verified Date/Time/Personnel: 12/03/2020 15:10 EDT Blood Culture: No Growth 7 days. PRELIMINARY REPORTS Preliminary Report [] Verified Date/Time/Personnel: 11/27/2020 12:14 EDT No growth to date Preliminary Report [] Verified Date/Time/Personnel: 11/26/2020 22:00 EDT Culture has been received in lab and is no growth to date. Routine cultures are held for 5 days. Performing Locations *1: This test was performed at: [facility], [address] [place] [address], [address] [place] [address] ([place]) documented in this encounter [facility] Work Phone: Evaluation note* Diagnosis Dyspnea, unspecified type- Primary Dyspnea, unspecified type [facility] History of colonic polyps- Primary Personal history of colonic polyps Pacemaker Cardiac pacemaker in situ Family history of colon cancer Family history of malignant neoplasm of gastrointestinal tract On continuous oral anticoagulation Long-term (current) use of anticoagulants 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 [facility] Diagnosis OPENED IN ERROR- Primary To allow closing an encounter opened in error (used in SmartSet) [facility] Diagnosis Pre-operative examination- Primary Preoperative examination, unspecified Coronary artery disease involving [place] coronary artery of [place] heart without angina pectoris Essential hypertension Unspecified essential hypertension Gastroesophageal reflux disease without esophagitis Esophageal reflux Hypercholesterolemia Pure hypercholesterolemia Chronic a-fib (HCC) Atrial fibrillation History of pacemaker Personal history of unspecified circulatory disease Iron deficiency anemia due to chronic blood loss Iron deficiency anemia secondary to blood loss (chronic) Chronic diastolic heart failure (HCC) Chronic diastolic heart failure Rheumatoid arthritis, involving unspecified site, unspecified whether rheumatoid factor present (HCC) Hypokalemia Hypopotassemia Other spondylosis, lumbar region Class 1 obesity due to excess calories with serious comorbidity and body mass index (BMI) of 31.0 to 31.9 in adult documented in this encounter [facility] Discharge instructions* Instructions* Chyna Hernandez MD - 11/27/2020 Ortho discharge instructions: Weightbearing as tolerated to right upper extremity. Ice to affected area. This will help with pain. Elevate right upper extremity. This will help with swelling. Take your medications as prescribed. Follow-up outpatient with Dr. Mejia in 1-2 week(s). Please call Dr. Mejia today to schedule a follow up. In the medical field, there is always a level of diagnostic uncertainty, even if this uncertainty is low. For this reason, it is important to immediately return to the emergency department if you have any new symptoms, worsening symptoms, change of symptoms, or if you have any other concerns. We would be happy to re- evaluate you. Otherwise, please take your medications as prescribed and follow-upas recommended. [facility] Work Phone: History of Present Illness * Abran Esparza MD - 05/10/2019 3:41 PM EST Brandon Kulkarni 73 y.o. 1945 male Reason for Consult screening colonoscopy high risk: HPI: 73-year-old male with history of hypertension hyperlipidemia GERD colon polyp atrial fibrillation and family history of colon cancer was referred to me for surveillance colonoscopy. His last colonoscopy was 5 years ago. He also has iron deficiency anemia and taking iron. He denies any bright red blood per rectum, abdominal pain, weight loss, change in bowel habit. Past Medical History: Past Medical History: Diagnosis Date Atrial fibrillation (HCC) Colon polyp GERD (gastroesophageal reflux disease) Hyperlipidemia Hypertension Surgical History & Procedures: Past Surgical History: Procedure Laterality Date COLONOSCOPY TOTAL KNEE REPLACEMENT ( LILLIAN TRIATHALON) Social History: Social History Socioeconomic History Marital status: Single Spouse name: Not on file Number of children: Not on file Years of education: Not on file Highest education level: Not on file Occupational History Not on file Social Needs Financial resource strain: Not on file Food insecurity Worry: Not on file Inability: Not on file Transportation needs Medical: Not on file Non-medical: Not on file Tobacco Use Smoking status: Never Smoker Smokeless tobacco: Never Used Substance and Sexual Activity Alcohol use: Yes Comment: socially Drug use: Never Sexual activity: Not on file Lifestyle Physical activity Days per week: Not on file Minutes per session: Not on file Stress: Not on file Relationships Social connections Talks on phone: Not on file Gets together: Not on file Attends episcopal service: Not on file Active member of club or organization: Not on file Attends meetings of clubs or organizations: Not on file Relationship status: Not on file Other Topics Concern Not on file Social History Narrative Not on file Current Medications: Current Outpatient Medications Medication Sig Dispense Refill amLODIPine-benazepril (Lotrel) 5-10 mg per capsule Take 1 capsule by mouth daily Take 10mg daily . apixaban (ELIQUIS) 5 mg Tab Take 5 mg by mouth daily One tablet every 12 hours . carboxymethylcellulose-glycern 0.5-0.9 % Drop Apply to eye Drop in each eye four times daily . cyclobenzaprine (FLEXERIL) 10 MG tablet Take 10 mg by mouth once daily At bedtime . diclofenac sodium 1 % Gel Apply topically appy 2gm externally three times a day. . ferrous sulfate 325 (65 FE) MG tablet Take 325 mg by mouth 2 (two) times a day with meals . furosemide (LASIX) 40 MG tablet Take 40 mg by mouth daily . hydrALAZINE (APRESOLINE) 10 MG tablet Take 10 mg by mouth 3 (three) times a day Take 2 tablets three times daily . multivitamin (multivitamin) per tablet Take 1 tablet by mouth 2 (two) times a day . pantoprazole (PROTONIX) 40 MG tablet Take 40 mg by mouth daily . potassium chloride SA (K-DUR,KLOR-CON) 10 MEQ tablet Take 10 mEq by mouth daily . cholecalciferol, vitamin D3, 2,000 unit Tab Take 2,000 Units by mouth daily . No current facility-administered medications for this visit. Review of Systems Constitutional: Negative for appetite change and unexpected weight change. HENT: Negative for voice change. Respiratory: Negative for cough, choking and shortness of breath. Cardiovascular: Negative for chest pain and leg swelling. Gastrointestinal: Negative for abdominal pain, anal bleeding, blood in stool, constipation, diarrhea, nausea, rectal pain and vomiting. Genitourinary: Negative for hematuria. Musculoskeletal: Negative for arthralgias and joint swelling. Skin: Negative for pallor. Neurological: Negative for dizziness, tremors and weakness. Hematological: Negative for adenopathy. Does not bruise/bleed easily. Psychiatric/Behavioral: Negative for confusion. Physical Exam Constitutional: Appearance: Normal appearance. Eyes: Pupils: Pupils are equal, round, and reactive to light. Cardiovascular: Pulses: Normal pulses. Heart sounds: Normal heart sounds. Pulmonary: Breath sounds: Normal breath sounds. Abdominal: General: Bowel sounds are normal. Palpations: Abdomen is soft. There is no mass. Tenderness: There is no abdominal tenderness. Skin: Coloration: Skin is not jaundiced. Neurological: General: No focal deficit present. Mental Status: He is alert and oriented to person, place, and time. Psychiatric: Behavior: Behavior normal. No visits with results within 30 Day(s) from this visit. Latest known visit with results is: No results found for any previous visit. Radiology: Assessment & Plan: Screening colonoscopy high risk with family history of colon cancer will need colonoscopy which is scheduled for June 10 at 9 AM at surgery center. Abran Esparza MD documented in this encounter* Abran Esparza MD - 06/27/2019 2:40 PM EDT Brandon Kulkarni 73 y.o. 1945 male This visit has been fully reviewed with the patient and verbal consent has been obtained Changes since last visit: Telephone visit via phone call 73-year-old male had colonoscopy few weeks ago and found to have 3 colon polyp one in descending colon and another in cecum all were adenomatous. Since his procedure he denies any abdominal pain bright red blood per rectum or melena. Past Medical History: Past Medical History: Diagnosis Date Atrial fibrillation (HCC) dx 2018 Colon polyp Complication of anesthesia 2010 was told had reaction to anesthesia. shut his bowels down GERD (gastroesophageal reflux disease) Hyperlipidemia Hypertension PONV (postoperative nausea and vomiting) Surgical History & Procedures: Past Surgical History: Procedure Laterality Date CARDIAC CATHETERIZATION 2017 COLONOSCOPY COLONOSCOPY N/A 06/11/2019 Procedure: COLONOSCOPY WITH POLYPECTOMY; Surgeon: Abran Esparza MD; [place] [facility] [place] Service: Gastroenterology TOTAL KNEE REPLACEMENT ( LILLIAN TRIATHALON) Social History: Social History Socioeconomic History Marital status: Single Spouse name: Not on file Number of children: Not on file Years of education: Not on file Highest education level: Not on file Occupational History Not on file Social Needs Financial resource strain: Not on file Food insecurity Worry: Not on file Inability: Not on file Transportation needs Medical: Not on file Non-medical: Not on file Tobacco Use Smoking status: Never Smoker Smokeless tobacco: Never Used Substance and Sexual Activity Alcohol use: Yes Comment: socially Drug use: Never Sexual activity: Not on file Lifestyle Physical activity Days per week: Not on file Minutes per session: Not on file Stress: Not on file Relationships Social connections Talks on phone: Not on file Gets together: Not on file Attends episcopal service: Not on file Active member of club or organization: Not on file Attends meetings of clubs or organizations: Not on file Relationship status: Not on file Other Topics Concern Not on file Social History Narrative Not on file Current Medications: Current Outpatient Medications Medication Sig Dispense Refill amLODIPine-benazepril (Lotrel) 5-10 mg per capsule Take 1 capsule by mouth daily Take 10mg daily . apixaban (ELIQUIS) 5 mg Tab Take 5 mg by mouth daily One tablet every 12 hours . aspirin 81 MG EC tablet Take 81 mg by mouth daily . carboxymethylcellulose-glycern 0.5-0.9 % Drop Apply to eye Drop in each eye four times daily . cholecalciferol, vitamin D3, 2,000 unit Tab Take 2,000 Units by mouth daily . cyclobenzaprine (FLEXERIL) 10 MG tablet Take 10 mg by mouth once daily At bedtime . diclofenac sodium 1 % Gel Apply topically appy 2gm externally three times a day. . ferrous sulfate 325 (65 FE) MG tablet Take 325 mg by mouth 2 (two) times a day with meals . furosemide (LASIX) 40 MG tablet Take 40 mg by mouth daily . hydrALAZINE (APRESOLINE) 10 MG tablet Take 10 mg by mouth 3 (three) times a day Take 2 tablets three times daily . multivitamin (multivitamin) per tablet Take 1 tablet by mouth 2 (two) times a day . pantoprazole (PROTONIX) 40 MG tablet Take 40 mg by mouth daily . potassium chloride SA (K-DUR,KLOR-CON) 10 MEQ tablet Take 10 mEq by mouth daily . No current facility-administered medications for this visit. Review of Systems Constitutional: Negative for appetite change and unexpected weight change. HENT: Negative for voice change. Respiratory: Negative for cough, choking and shortness of breath. Cardiovascular: Negative for chest pain and leg swelling. Gastrointestinal: Negative for abdominal pain, anal bleeding, blood in stool, constipation, diarrhea, nausea, rectal pain and vomiting. Genitourinary: Negative for hematuria. Musculoskeletal: Negative for arthralgias and joint swelling. Skin: Negative for pallor. Neurological: Negative for dizziness, tremors and weakness. Hematological: Negative for adenopathy. Does not bruise/bleed easily. Psychiatric/Behavioral: Negative for confusion. Physical Exam Admission on 06/11/2019, Discharged on 06/11/2019 Component Date Value Ref Range Status Case Report 06/11/2019 Final Value:Surgical Pathology Report Case: [id number] Authorizing Provider: Abran Esparza, Collected: 06/11/2019 09:07 AM Ordering Location: [facility] Surgery Received: 06/11/2019 10:45 AM Center Periop Pathologist: Jean Carlos Beltran MD Specimens: A) - Colon, Descending, Left, Polyp Descending x2 B) - Colon, Ileo-Cecal Valve, polyp ileocecal valve Final Diagnosis 06/11/2019 Final Value:This result contains rich text formatting which cannot be displayed here. Clinical Information 06/11/2019 Final Value:This result contains rich text formatting which cannot be displayed here. Gross Description 06/11/2019 Final Value:This result contains rich text formatting which cannot be displayed here. Microscopic Description 06/11/2019 Final Value:This result contains rich text formatting which cannot be displayed here. Assessment & Plan: 3 adenomatous colon polyp and family history of colon cancer patient will need repeat colonoscopy in 3 years. Abran Esparza MD documented in this encounter Assessments Diagnosis Iron deficiency anemia due to chronic blood loss Iron deficiency anemia secondary to blood loss (chronic) Family history of colon cancer requiring screening colonoscopy Diagnosis Iron deficiency anemia due to chronic blood loss Iron deficiency anemia secondary to blood loss (chronic) Family history of colon cancer requiring screening colonoscopy Diagnosis Iron deficiency anemia due to chronic blood loss Iron deficiency anemia secondary to blood loss (chronic) Family history of colon cancer requiring screening colonoscopy Diagnosis Adenomatous polyp of descending colon Advance Directives No Advanced Directives Records FoundDocuments on File Type Date Recorded Patient [employer] Advance Directives and Living Will Documents on File Type Date Recorded Patient [employer] Advance Directives and Livin g Will 06/11/2019 7:49 AM Documents on File Type Date Recorded Patient [employer] Advance Directives and Livin g Will 06/11/2019 7:49 AM Summary Purpose Family History No Family History Records FoundNo Family History Records FoundNo Family History Records FoundNo Family History Records FoundNo Family History Records FoundNo Family History Records FoundNo Family History Records FoundNo Family History Records FoundNo Family History Records Found Discharge Instructions * Attachments The following attachments cannot be sent through Care Everywhere. * Colon Polyps ([place]) * High-Fiber Diet ([place]) documented in this encounter Reason for Referral Specialty Diagnoses / Procedures Referred By Contac sarah Referred To Contact Radiology Diagnoses Dyspnea, unspecified type Procedures XR CHEST 2 VIEW PA+LAT Maria Fernanda Evans APRN-ISABELLE [address] [id number] [facility] DIAGNOSTIC RADIOLOGY [address] [place] [address] [place] [address] Referral ID Status Reason Start Date Expiration Date Visits Re quested Visits Authorized [id number] Closed 11/06/2021 11/06/2022 1 1 Additional Source Comments Reason for Visit (unrecogniz ed section and content) Status Reason Specialty Diagnoses / Procedures Referred By Contact Referred To Contact Closed Gastroenterology Diagnoses Anemia, unspecified type Clarisse Encinas CNP [address] [place] [address] Abran Esparza MD [facility] [place] [address] Status Reason Specialty Diagnoses / Procedures Referre d By Contact Referred To Contact Diagnoses Iron deficiency anemia due to chronic blood loss Family history of colon cancer requiring screening colonoscopy Iron deficiency anemia due to chronic blood loss [D50.0] Family history of colon cancer requiring screening colonoscopy [Z80.0] Procedures COLONOSCOPY Reason Comments Cellulitis From [facility] for cellulitis of the right hand. Hand appears red and swollen with pain upon palpation. Reason Comments Consult colonoscopy Specialty Diagnoses / Procedures Referred By Nadya smith Referred To Contact GENERAL SURGERY Diagnoses Encounter for screening for malignant neoplasm of colon EGD/COLON CONSULT - IN REFERRING - IN SCANNED DOC Procedures OFFICE/OUTPATIENT NEW HIGH MDM 60-74 MINUTES NEW DDI PATIENT Administration, [facility] [address] [place] [address] Referral ID Status Reason Start Date Expiration Date Visits Re quested Visits Authorized [id number] Closed 12/02/2022 05/31/2023 1 1 Reason Comments Appointment NO SHOW Reason Comments Consult Specialty Diagnoses / Procedures Referred By Nadya smith Referred To Contact Anesthesiology / ANESTHESIOLOGY Diagnoses Encounter for screening for malignant neoplasm of colon COLONOSCOPY Procedures OFFICE/OUTPATIENT ESTABLISHED HIGH MDM 40-54 MIN COMPLETE PAC Williams Contreras MD [address] [place] [address] 1, [facility] [place] [address] [place] [address] Referral ID Status Reason Start Date Expiration Date Visits Re quested Visits Authorized [id number] Closed 12/02/2022 06/20/2023 1 1 Reason Comments Results (unrecognized sect ion and content) No Status Records FoundNo Status Records FoundNo Status Records FoundNo Status Records FoundNo Status Records FoundNo Status Records FoundNo Status Records FoundNo Status Records FoundNo Status Records Found INFORMATION SOURCE (unrecogn ized section and content) DATE CREATED AUTHOR AUTHOR'S ORGANIZ ATION [facility] DATE CREATED AUTHOR AUTHOR'S ORGANIZ ATION 12/19/2020 [facility] ([place]) DATE CREATED AUTHOR AUTHOR'S ORGANIZ ATION 01/19/2021 [facility] DATE CREATED AUTHOR AUTHOR'S ORGANIZ ATION 03/16/2021 [facility] DATE CREATED AUTHOR AUTHOR'S ORGANIZ ATION 06/18/2021 Jann Oconnell [facility] DATE CREATED AUTHOR AUTHOR'S ORGANIZ ATION 11/07/2021 [facility] DATE CREATED AUTHOR AUTHOR'S ORGANIZ ATION 02/15/2023 [facility] DATE CREATED AUTHOR AUTHOR'S ORGANIZ ATION 03/23/2023 [facility] Abran Esparza MD - 06/11/2019 8:12 AM EDT H&P Notes (unrecognized sect ion and content) Abran Esparza MD Gastroenterology Family history of colon cancer requiring screening colonoscopy +1 more Dx Consult ; Referred by Abran Espazra MD Reason for Visit Diagnoses Codes Family history of colon cancer requiring screening colonoscopy - Primary ICD-10-CM: Z80.0 ICD-9-CM: V16.0 Iron deficiency anemia due to chronic blood loss ICD-10-CM: D50.0 ICD-9-CM: 280.0 Progress Notes Brandon Kulkarni 73 y.o. 1945 male Reason for Consult screening colonoscopy high risk: HPI: 73-year-old male with history of hypertension hyperlipidemia GERD colon polyp atrial fibrillation and family history of colon cancer was referred to ct for surveillance colonoscopy. His last colonoscopy was 5 years ago. He also has iron deficiency anemia and taking iron. He denies any bright red blood per rectum, abdominal pain, weight loss, change in bowel habit. Past Medical History: Past Medical History: Diagnosis Date Atrial fibrillation (HCC) Colon polyp GERD (gastroesophageal reflux disease) Hyperlipidemia Hypertension Surgical History & Procedures: Past Surgical History: Procedure Laterality Date COLONOSCOPY TOTAL KNEE REPLACEMENT ( LILLIAN TRIATHALON) Social History: Social History Socioeconomic History Marital status: Single Spouse name: Not on file Number of children: Not on file Years of education: Not on file Highest education level: Not on file Occupational History Not on file Social Needs Financial resource strain: Not on file Food insecurity Worry: Not on file Inability: Not on file Transportation needs Medical: Not on file Non-medical: Not on file Tobacco Use Smoking status: Never Smoker Smokeless tobacco: Never Used Substance and Sexual Activity Alcohol use: Yes Comment: socially Drug use: Never Sexual activity: Not on file Lifestyle Physical activity Days per week: Not on file Minutes per session: Not on file Stress: Not on file Relationships Social connections Talks on phone: Not on file Gets together: Not on file Attends episcopal service: Not on file Active member of club or organization: Not on file Attends meetings of clubs or organizations: Not on file Relationship status: Not on file Other Topics Concern Not on file Social History Narrative Not on file Current Medications: Current Outpatient Medications Medication Sig Dispense Refill amLODIPine-benazepril (Lotrel) 5-10 mg per capsule Take 1 capsule by mouth daily Take 10mg daily . apixaban (ELIQUIS) 5 mg Tab Take 5 mg by mouth daily One tablet every 12 hours . carboxymethylcellulose-glycern 0.5-0.9 % Drop Apply to eye Drop in each eye four times daily . cyclobenzaprine (FLEXERIL) 10 MG tablet Take 10 mg by mouth once daily At bedtime . diclofenac sodium 1 % Gel Apply topically appy 2gm externally three times a day. . ferrous sulfate 325 (65 FE) MG tablet Take 325 mg by mouth 2 (two) times a day with meals . furosemide (LASIX) 40 MG tablet Take 40 mg by mouth daily . hydrALAZINE (APRESOLINE) 10 MG tablet Take 10 mg by mouth 3 (three) times a day Take 2 tablets three times daily . multivitamin (multivitamin) per tablet Take 1 tablet by mouth 2 (two) times a day . pantoprazole (PROTONIX) 40 MG tablet Take 40 mg by mouth daily . potassium chloride SA (K-DUR,KLOR-CON) 10 MEQ tablet Take 10 mEq by mouth daily . cholecalciferol, vitamin D3, 2,000 unit Tab Take 2,000 Units by mouth daily . No current facility-administered medications for this visit. Review of Systems Constitutional: Negative for appetite change and unexpected weight change. HENT: Negative for voice change. Respiratory: Negative for cough, choking and shortness of breath. Cardiovascular: Negative for chest pain and leg swelling. Gastrointestinal: Negative for abdominal pain, anal bleeding, blood in stool, constipation, diarrhea, nausea, rectal pain and vomiting. Genitourinary: Negative for hematuria. Musculoskeletal: Negative for arthralgias and joint swelling. Skin: Negative for pallor. Neurological: Negative for dizziness, tremors and weakness. Hematological: Negative for adenopathy. Does not bruise/bleed easily. Psychiatric/Behavioral: Negative for confusion. Physical Exam Constitutional: Appearance: Normal appearance. Eyes: Pupils: Pupils are equal, round, and reactive to light. Cardiovascular: Pulses: Normal pulses. Heart sounds: Normal heart sounds. Pulmonary: Breath sounds: Normal breath sounds. Abdominal: General: Bowel sounds are normal. Palpations: Abdomen is soft. There is no mass. Tenderness: There is no abdominal tenderness. Skin: Coloration: Skin is not jaundiced. Neurological: General: No focal deficit present. Mental Status: He is alert and oriented to person, place, and time. Psychiatric: Behavior: Behavior normal. No visits with results within 30 Day(s) from this visit. Latest known visit with results is: No results found for any previous visit. Radiology: Assessment & Plan: Screening colonoscopy high risk with family history of colon cancer will need colonoscopy which is scheduled for June 10 at 9 AM at surgery center. MD Abran Capellan MD Gastroenterology Family history of colon cancer requiring screening colonoscopy +1 more Dx Consult ; Referred by Abran Esparza MD Reason for Visit Diagnoses Codes Family history of colon cancer requiring screening colonoscopy - Primary ICD-10-CM: Z80.0 ICD-9-CM: V16.0 Iron deficiency anemia due to chronic blood loss ICD-10-CM: D50.0 ICD-9-CM: 280.0 Progress Notes Brandon Kulkarni 73 y.o. 1945 male Reason for Consult screening colonoscopy high risk: HPI: 73-year-old male with history of hypertension hyperlipidemia GERD colon polyp atrial fibrillation and family history of colon cancer was referred to ct for surveillance colonoscopy. His last colonoscopy was 5 years ago. He also has iron deficiency anemia and taking iron. He denies any bright red blood per rectum, abdominal pain, weight loss, change in bowel habit. Past Medical History: Past Medical History: Diagnosis Date Atrial fibrillation (HCC) Colon polyp GERD (gastroesophageal reflux disease) Hyperlipidemia Hypertension Surgical History & Procedures: Past Surgical History: Procedure Laterality Date COLONOSCOPY TOTAL KNEE REPLACEMENT ( LILLIAN TRIATHALON) Social History: Social History Socioeconomic History Marital status: Single Spouse name: Not on file Number of children: Not on file Years of education: Not on file Highest education level: Not on file Occupational History Not on file Social Needs Financial resource strain: Not on file Food insecurity Worry: Not on file Inability: Not on file Transportation needs Medical: Not on file Non-medical: Not on file Tobacco Use Smoking status: Never Smoker Smokeless tobacco: Never Used Substance and Sexual Activity Alcohol use: Yes Comment: socially Drug use: Never Sexual activity: Not on file Lifestyle Physical activity Days per week: Not on file Minutes per session: Not on file Stress: Not on file Relationships Social connections Talks on phone: Not on file Gets together: Not on file Attends episcopal service: Not on file Active member of club or organization: Not on file Attends meetings of clubs or organizations: Not on file Relationship status: Not on file Other Topics Concern Not on file Social History Narrative Not on file Current Medications: Current Outpatient Medications Medication Sig Dispense Refill amLODIPine-benazepril (Lotrel) 5-10 mg per capsule Take 1 capsule by mouth daily Take 10mg daily . apixaban (ELIQUIS) 5 mg Tab Take 5 mg by mouth daily One tablet every 12 hours . carboxymethylcellulose-glycern 0.5-0.9 % Drop Apply to eye Drop in each eye four times daily . cyclobenzaprine (FLEXERIL) 10 MG tablet Take 10 mg by mouth once daily At bedtime . diclofenac sodium 1 % Gel Apply topically appy 2gm externally three times a day. . ferrous sulfate 325 (65 FE) MG tablet Take 325 mg by mouth 2 (two) times a day with meals . furosemide (LASIX) 40 MG tablet Take 40 mg by mouth daily . hydrALAZINE (APRESOLINE) 10 MG tablet Take 10 mg by mouth 3 (three) times a day Take 2 tablets three times daily . multivitamin (multivitamin) per tablet Take 1 tablet by mouth 2 (two) times a day . pantoprazole (PROTONIX) 40 MG tablet Take 40 mg by mouth daily . potassium chloride SA (K-DUR,KLOR-CON) 10 MEQ tablet Take 10 mEq by mouth daily . cholecalciferol, vitamin D3, 2,000 unit Tab Take 2,000 Units by mouth daily . No current facility-administered medications for this visit. Review of Systems Constitutional: Negative for appetite change and unexpected weight change. HENT: Negative for voice change. Respiratory: Negative for cough, choking and shortness of breath. Cardiovascular: Negative for chest pain and leg swelling. Gastrointestinal: Negative for abdominal pain, anal bleeding, blood in stool, constipation, diarrhea, nausea, rectal pain and vomiting. Genitourinary: Negative for hematuria. Musculoskeletal: Negative for arthralgias and joint swelling. Skin: Negative for pallor. Neurological: Negative for dizziness, tremors and weakness. Hematological: Negative for adenopathy. Does not bruise/bleed easily. Psychiatric/Behavioral: Negative for confusion. Physical Exam Constitutional: Appearance: Normal appearance. Eyes: Pupils: Pupils are equal, round, and reactive to light. Cardiovascular: Pulses: Normal pulses. Heart sounds: Normal heart sounds. Pulmonary: Breath sounds: Normal breath sounds. Abdominal: General: Bowel sounds are normal. Palpations: Abdomen is soft. There is no mass. Tenderness: There is no abdominal tenderness. Skin: Coloration: Skin is not jaundiced. Neurological: General: No focal deficit present. Mental Status: He is alert and oriented to person, place, and time. Psychiatric: Behavior: Behavior normal. No visits with results within 30 Day(s) from this visit. Latest known visit with results is: No results found for any previous visit. Radiology: Assessment & Plan: Screening colonoscopy high risk with family history of colon cancer will need colonoscopy which is scheduled for June 10 at 9 AM at surgery center. Abran Esparza MD documented in this encounter Lizeth Hernandez RN - 06/11/2019 10:13 AM Jacquelin Houser RN - 06/11/2019 10:02 AM Jacquelin Houser RN - 06/11/2019 9:54 AM Mini Sun RN - 06/11/2019 8:23 AM EDT Nursing Notes (unrecognized section and content) D/c instructions reviewed w/ pt., he verbalized understanding, all questions answered, copies provided. Tolerates po intake well. Belongings returned to pt. Up to edge of cart - tolerates well To back and hob up to sitting. Pt. Has passed air - denies c/o at this time. Sister Unique driving patient home documented in this encounter Ordered Prescriptions (unrec ognized section and content) Scheduled Active and Recently Administ ered Medications (unrecognized section and content) Linked Groups Order Group 1: Saline lock IV (COMPLETED) Routine, CONTINUOUS, Starting on Tue11/26/20 at 2330, Until Specified And sodium chloride flush 0.9 % injection 3 mLJump to med 3 mL, IntraVENous, EVERY 8 HOURS, First dose on Tue11/26/20 at 2330
Flush line with 3-5 mL
Source Comments (unrecognize d section and content) In the event this informatio n is protected by the Federal Confidentiality of Alcohol and Drug Abuse Patient Records regulations: The Federal rules restrict any use of the information to criminally investigate or prosecute any alcohol or drug abuse patient.[facility] event this information is protected by the Federal Confidentiality of Alcohol and Drug Abuse Patient Records regulations: The Federal rules restrict any use of the information to criminally investigate or prosecute any alcohol or drug abuse patient.[facility] the event this information is protected by the Federal Confidentiality of Alcohol and Drug Abuse Patient Records regulations: The Federal rules restrict any use of the information to criminally investigate or prosecute any alcohol or drug abuse patient.[facility] the event this information is protected by the Federal Confidentiality of Alcohol and Drug Abuse Patient Records regulations: The Federal rules restrict any use of the information to criminally investigate or prosecute any alcohol or drug abuse patient.[facility] event this information is protected by the Federal Confidentiality of Alcohol and Drug Abuse Patient Records regulations: The Federal rules restrict any use of the information to criminally investigate or prosecute any alcohol or drug abuse patient.[facility] Care Teams (unrecognized sec tion and content) Sample Selector Relationship Specialty Start Date End Date Abran Esparza MD PCP - General Gastroenterology 11/05/21 Sample Selector Relationship Specialty Start Date End Date Abran Esparza MD PCP - General Gastroenterology 11/05/21 Sample Selector Relationship Specialty Start Date End Date Abran Esparza MD PCP - General Gastroenterology 11/05/21 Sample Selector Relationship Specialty Start Date End Date [facility], [facility] [address] [place] [address] PCP - General Family Medicine 03/02/23 FOR RECORDS PERTAINING TO PATIENTS WHO ARE OR HAVE BEEN ENROLLED IN A CHEMICAL DEPENDENCY/SUBSTANCEABUSE PROGRAM, SOME INFORMATION MAY BE OMITTED. This clinical summary was aggregated from multiple sources. Caution should be exercised in using it in the provision of clinical care. This summary normalizes information from multiple sources, and as a consequence, information in this document may materially change the coding, format and clinical context of patient data. In addition, data may be omitted in some cases. CLINICAL DECISIONS SHOULD BE BASED ON THE PRIMARY CLINICAL RECORDS. [facility] [employer] [employer] provides no warranty or guarantee of the accuracy or completeness of information in this document.
[2023-04-28 10:03] LABS: Absolute Lymphocyte Count 1.62 X10^3/uL (0.83-4.51); Absolute Neutrophil Count 4.7 X10^3/uL (2.0-7.7); Basophil# 0.07 X10^3/uL; Basophil% 0.9 % (0-1); Eosinophil# 0.16 X10^3/uL; Hematocrit 33.3 % (40-54); Hemoglobin 9.9 g/dL (13.0-16.5); Lymphocyte # 1.62 X10^3/ul (0.83-4.51); Lymphocyte % 20.1 % (19-41); Mean Corp Hgb Conc 29.7 g/dL (32-36); Mean Corpuscular Hgb 26.8 pg (27.0-32.0); Mean Corpuscular Volume 90.2 fL (80-94); Mean Platelet Vol. 12.7 fl (6.2-12.0); Monocyte# 1.47 X10^3/uL; Monocyte% 18.2 % (0-10); NRBC Flagged by Analyzer 0 % (0-5); Neutrophil # 4.71 X10^3/uL (2.7-7.7); Neutrophil % 58.4 % (47-70); Platelet Count 225 K/mm3 (150-450); RBC Distribution Width CV 15.5 % (11.6-14.6); Red Blood Count 3.69 M/mm3 (4.6-6.2); White Blood Count 8.1 K/mm3 (4.4-11.0)
[2023-04-28 10:50] LABS: ALB/GLOB Ratio 1.1 RATIO (0.9-2.4); AST(SGOT) 18 U/L (15-37); Alanine Aminotransfer ALT/SGPT 18 U/L (16-61); Albumin, Serum 3.4 g/dL (3.2-5.0); Alkaline Phosphatase 70 U/L (45-117); Anion Gap 5 (5-15); BUN 18 mg/dL (7-18); BUN/Creat Ratio 15.1 RATIO (10-20); Calcium,Total 9.2 mg/dL (8.5-10.1); Chloride 106 mmol/L (98-107); Creatinine, Serum 1.19 mg/dL (0.70-1.30); EST Glomerular Filtration Rate 63 mL/min (>60); Est Glom Filt Rate - Afr Amer 77 mL/min (>60); Globulin 3.2 g/dL (2.2-4.2); Glucose 108 mg/dL (74-106); Potassium 3.6 mmol/L (3.5-5.1); Protein, Total 6.6 g/dL (6.4-8.2); Sodium Level 139 mmol/L (136-145)
== END | disposition home or self-care (01) ==
LOC: MTLAB 07:52
PROVIDERS: Referring Provider Internal Medicine Rheumatology; Visit Provider Internal Medicine Rheumatology
DX: M06.00 Rheumatoid arthritis without rheumatoid factor, unspecified site (principal); Z79.899 Other long term (current) drug therapy
CPT/HCPCS: 36415; 80053; 85025

== ENCOUNTER 2023-05-26 13:33 | Emergency (ER) | payer OTHER, SELFPAY ==
[2023-05-26 13:34] VITALS: BP 131/71; PULSE 60; RESP 20; TEMP 36.7; O2SAT 100
--- NOTE | 2023-05-26 13:47 | EX.ED.DYSGE1 ---
HPI History of Present Illness Chief Complaint: Cough Informant: patient Onset/Context/Timing Onset: Month(s) Narrative Narrative: Patient presents secondary to cough for the last month. Patient states he seen his doctor at the [facility] and they gave him some medicine that did not help. He does not know what this medication was. He states he called today to advise him that he is still coughing and was sent to the emergency room. He denies chest pain. He states he feels like he has thick mucus that he has trouble getting up. He does admit to increased lower extremity edema, but states he was without his diuretic for 2 weeks. It was recently refilled and he is back on this currently. He denies fever or chills. He denies history of COPD, asthma, or chronic bronchitis. [facility] Medical History Anemia Anemia Atherosclerotic heart disease of [place] coronary artery without angina pectoris Atrial fibrillation Back pain due to injury Bleeding tendency Chronic anticoagulation Chronic diastolic (congestive) heart failure GERD (gastroesophageal reflux disease) GI bleed High cholesterol History of stress test HTN (hypertension), benign Hyperlipemia, mixed Irregular heartbeat Lightheadedness Longstanding persistent atrial fibrillation Multiple premature ventricular complexes Obesity Pacemaker Rheumatoid arthritis Skin cancer Syncope Tachy-cory syndrome Troponin I above reference range Unstable angina Home Medications cholecalciferol (vitamin D3) 50 mcg (2,000 unit) tablet 50 mcg PO DAILY SUPPLEMENT 04/13/21 [History Last Taken 02/17/23] colchicine 0.6 mg tablet 1.2 mg PO DAILY PRN gout 02/04/22 [History Last Taken 02/17/23] ferrous gluconate 324 mg (36 mg iron) tablet 324 mg PO DAILY SUPPLEMENT 02/04/22 [History Last Taken 02/17/23] folic acid 1 mg tablet 2 mg PO DAILY SUPPLEMENT 02/04/22 [History Last Taken 02/17/23] apixaban 5 mg tablet 5 mg PO BID BLOOD THINNER #90 tabs 05/14/22 [Rx Last Taken 02/17/23] doxazosin 1 mg tablet 1 mg PO DAILY BLOOD PRESSURE #90 tabs 05/14/22 [Rx Last Taken 02/17/23] pantoprazole 40 mg tablet,delayed release 40 mg PO DAILY ACID REFLUX #180 tabs 05/14/22 [Rx Last Taken 02/17/23] rosuvastatin 20 mg tablet 20 mg PO DAILY CHOLESTEROL #90 tabs 05/14/22 [Rx Last Taken 02/17/23] allopurinol 100 mg tablet 200 mg PO DAILY GOUT 08/31/22 [History Last Taken 02/17/23] gabapentin 100 mg capsule 100 mg PO TID NEUROPATHY 08/31/22 [History Last Taken 02/17/23] acetaminophen 325 mg tablet (Tylenol) 325 mg PO Q6H PRN pain 03/12/23 [History Last Taken Unknown] lidocaine 5 % topical patch 2 patch topical DAILY pain 03/12/23 [History Last Taken Unknown] aspirin 81 mg chewable tablet 81 mg PO DAILY #30 tabs 03/15/23 [Rx Last Taken Unknown] metoprolol succinate 50 mg tablet,extended release 24 hr 75 mg (1.5 x 50 mg) PO BID #90 tabs 04/25/23 [Rx Last Taken Unknown] albuterol sulfate 90 mcg/actuation aerosol inhaler (Ventolin HFA) 2 puff inhalation Q4H PRN PRN Wheezing ##1 05/26/23 [Rx Last Taken Unknown] benzonatate 200 mg capsule 200 mg PO TID PRN cough #14 caps 05/26/23 [Rx Last Taken Unknown] guaifenesin 1,200 mg tablet, extended release 12 hr (Mucinex) 1,200 mg PO BID PRN congestion #10 tabs 05/26/23 [Rx Last Taken Unknown] Allergy/AdvReac Type Severity Reaction Status Date / Time lisinopril Allergy Angioedema Verified 05/26/23 13:34 Penicillins [PCN] Allergy Hives Verified 05/26/23 13:34 Family History Other CVA (cerebral vascular accident) Hypertension Surgical History H/O cardiac catheterization History of appendectomy History of arthroscopic knee surgery History of colonoscopy with polypectomy History of coronary artery stent placement (09/22/20) History of heart artery stent History of left heart catheterization (02/05/22) History of permanent cardiac pacemaker placement (12/15/20) Social History Smoking Status: Former smoker ROS ROS ED Constitutional Constitutional ED: Denies chills or fever(s) Eyes Eyes: Denies discharge from eye(s) ENT ENT ED: Denies discharge from eye(s), rhinorrhea or sore throat Cardiovascular Cardiovascular: Denies chest pain or palpitations Respiratory/Chest Respiratory/Chest: Reports cough, dyspnea and sputum Gastrointestinal Gastrointestinal: Denies abdominal pain, nausea or vomiting Genitourinary Genitourinary ED: Denies dysuria Musculoskeletal Musculoskeletal: Denies back pain or extremity pain Integumentary Denies Abrasions or rash Neurologic Neurologic: Denies headache(s) or weakness Psychiatric Psychiatric: Denies anxiety or depression Allergic/Immunologic Allergic/Immunologic ED: Denies lip swelling or urticaria EXAM Physical Exam Const Vital Signs: 05/26/23 13:34 05/26/23 13:57 05/26/23 13:57 Temperature 98.1 F Temperature Source Oral Pulse Rate 60 62 Respiratory Rate 20 H 16 Respiratory Effort Short of Breath Respiratory Depth Normal Respiratory Pattern Tachypnea Normal Blood Pressure 131/71 H Blood Pressure Mean 91 Pulse Ox 100 Oxygen Delivery Method Room Air Room Air Positive well nourished and well developed General Appearance ED: well developed HEENT Reports moist mucous membranes Chest Wall inspection of chest normal and palpation of chest normal Resp normal respiratory effort and clear to auscultation bilaterally Cardio regular rate GI non-tender Palpation: soft Extremity Extremity Narrative: 2+ bilateral lower extremity edema at the ankles. No calf tenderness. Neuro oriented x3 and no sensory deficits noted Motor Exam: strength 5/5 throughout Psych mental status grossly normal Skin no rashes or lesions noted MDM MDM MDM Narrative Medical decision making narrative: Chest x-ray obtained to evaluate for acute lung pathology, cardiac size, or mediastinal abnormality. Swab for COVID, influenza, and RSV obtained. Patient given a DuoNeb treatment to try to help loosen the mucus that he feels with his cough. Lab Data Attestation: I reviewed the patient's lab results. Radiography Diagnostic Testing: Clinical Impression(s) from Imaging Studies Chest X-Ray 05/26/23 14:06 IMPRESSION: Mild cardiomegaly. The lungs are clear. Electronically Signed: Thomas Brooks MD at 14:31 EST , Treatment and Re-Evaluation :: Swab for COVID, influenza, and RSV is negative. Two-view chest x-ray per my interpretation reveals no evidence of focal infiltrate. Radiology interpretation is reviewed and agrees. On repeat evaluation patient resting comfortably. He does feel that the breathing treatment helped loosen up some of the mucus. Test results are discussed with him. I will write him an albuterol inhaler to use at home along with Mucinex and Tessalon Perles. I see no evidence of acute bacterial infection and do not feel that he needs antibiotics. Discharge Plan Triage Chief Complaint: Cough ED Provider: Nohemi Hunter Dx/Rx/DC Orders Clinical Impression: Cough Instructions: ED Cough Chronic Uncertain Cause Adult Prescriptions: New guaifenesin [Mucinex] 1,200 mg tablet extended release 12hr 1,200 mg PO BID PRN (Reason: congestion) Qty: 10 0RF benzonatate 200 mg capsule 200 mg PO TID PRN (Reason: cough) Qty: 14 0RF albuterol sulfate [Ventolin HFA] 90 mcg/actuation HFA aerosol inhaler 2 puff inhalation Q4H PRN PRN (Reason: Wheezing) Qty: 1 0RF No Action gabapentin 100 mg capsule 100 mg PO TID cholecalciferol (vitamin D3) 50 mcg (2,000 unit) Tablet 50 mcg PO DAILY allopurinol 100 mg tablet 200 mg PO DAILY folic acid 1 mg tablet 2 mg PO DAILY colchicine 0.6 mg tablet 1.2 mg PO DAILY PRN (Reason: gout) Hold Instructions: MD Ordered ferrous gluconate 324 mg (36 mg iron) Tablet 324 mg PO DAILY Hold Instructions: MD Ordered lidocaine 5 % adhesive patch,medicated 2 patch topical DAILY Rx Instructions: leave on most painful area for up to 12 hrs acetaminophen [Tylenol] 325 mg tablet 325 mg PO Q6H PRN (Reason: pain) aspirin 81 mg tablet,chewable 81 mg PO DAILY Qty: 30 2RF apixaban 5 mg tablet 5 mg PO BID Qty: 90 3RF doxazosin 1 mg tablet 1 mg PO DAILY Qty: 90 3RF rosuvastatin 20 mg tablet 20 mg PO DAILY Qty: 90 3RF pantoprazole 40 mg tablet,delayed release (DR/EC) 40 mg PO DAILY Qty: 180 3RF metoprolol succinate 50 mg tablet extended release 24 hr 75 mg PO BID Qty: 90 11RF [facility] [Primary [facility] Provider] - 1-2 Weeks Disposition Disposition: Home, Self Care
[2023-05-26] MEDS: Ipratropium/Albuterol Sulfate 3 ML AMPUL.NEB INHALATION (13:55)
[2023-05-26 13:57] VITALS: PULSE 62; RESP 16; O2SAT 97; BMI 30.8
--- NOTE | 2023-05-26 14:06 | RAD_ITS ---
STUDY: X-RAY CHEST REASON FOR EXAM: Male, 77 years old. Cough TECHNIQUE: PA and lateral views of the chest. COMPARISON: Comparison is made with prior study February 17, 2023. FINDINGS: Hyperinflation. The lungs are clear. There is no demonstrated pleural abnormality. There is mild cardiac enlargement. A left-sided dual-chamber pacemaker is seen. Normal mediastinum and rosendo. Normal visualized pulmonary arteries. There is atherosclerotic calcification of the aortic arch with tortuosity. There are degenerative changes of the visualized thoracic spine. Normal visualized ribs, clavicles, and shoulders. There is no demonstrated abnormality of the visualized soft tissue structures of the upper abdomen. RAD/Chest PA and Lateral IMPRESSION: Mild cardiomegaly. The lungs are clear. Electronically Signed: Thomas Brooks MD at 14:31 EST ,
[2023-05-26 16:03] VITALS: BP 152/78; PULSE 75; RESP 18; TEMP 36.3; O2SAT 98
== END 2023-05-26 16:05 | disposition home or self-care (01) ==
PROVIDERS: Emergency Provider Emergency Medicine; Visit Provider Emergency Medicine
DX: R05.3 Chronic cough (principal); I11.0 Hypertensive heart disease with heart failure; I50.32 Chronic diastolic (congestive) heart failure; I48.11 Longstanding persistent atrial fibrillation; I25.10 Atherosclerotic heart disease of native coronary artery without angina pectoris; E78.00 Pure hypercholesterolemia, unspecified; Z95.0 Presence of cardiac pacemaker; Z95.5 Presence of coronary angioplasty implant and graft; Z79.01 Long term (current) use of anticoagulants; Z79.82 Long term (current) use of aspirin; Z79.899 Other long term (current) drug therapy; Z87.891 Personal history of nicotine dependence
CPT/HCPCS: 71046; 87631; 94640; 99282

== ENCOUNTER → 2023-06-28 | Outpatient (CLI) | payer OTHER, SELFPAY ==
--- NOTE | 2023-06-28 07:41 | CT_ITS ---
STUDY: CT LUMBAR SPINE WITHOUT CONTRAST REASON FOR EXAM: Male, 77 years old. LOW BACK PAIN RADIATION DOSAGE (If Supplied By Facility): CTDIvol = ( 33.90 ) mGy, DLP = ( 1078.14 ) mGycm TECHNIQUE: The patient was scanned in a multi detector CT scanner. High resolution transaxial imaging was performed. Images were obtained from L1 to S1 vertebral level. Sagittal and coronal images were reconstructed. Individualized dose optimization techniques were used for this CT. COMPARISON: None FINDINGS: There is straightening of the normal lumbar lordosis. There is no substantial scoliosis. Multilevel spondylosis. There is no demonstrated osseous destructive lesion. L1-2: Marked degree of disc space narrowing and disc degeneration. Disc degeneration. L2-3: Marked degree of disc space narrowing. Spondylosis. Mild degree of central canal stenosis due to hypertrophy of the ligamenta flava. L3-4: Marked degree of disc space narrowing and disc degeneration. Spondylosis. Mild degree of central canal stenosis due to hypertrophy of the ligamenta flava and facet joint osteoarthritis. Bilateral neural foraminal stenosis. Facet joint osteoarthritis. L4-5: Marked degree of disc space narrowing and disc degeneration. Spondylosis. Mild degree of bilateral neural foraminal stenosis and central canal stenosis. Facet joint osteoarthritis. L5-S1: Marked degree of disc space narrowing and disc degeneration. Spondylosis. Aortic calcification. CT/Spine Lumbar without Contrast IMPRESSION: Multilevel degenerative changes, as described above. Electronically Signed: Thomas Brooks MD at 10:39 EDT ,
== END | disposition home or self-care (01) ==
LOC: CT 07:37
DX: M54.50 Low back pain, unspecified (principal); G89.29 Other chronic pain; M25.551 Pain in right hip; M25.59 Pain in other specified joint
CPT/HCPCS: 72131

== ENCOUNTER 2023-07-16 07:54 | Emergency (ER) | payer OTHER, SELFPAY ==
[2023-07-16] VITALS (10 sets, daily range): BP systolic 135–159; BP diastolic 68–98; PULSE 66–80; RESP 15–25; TEMP 36.2–36.9; O2SAT 92–98
--- NOTE | 2023-07-16 07:59 | RAD_ITS ---
STUDY: X-RAY CHEST REASON FOR EXAM: Male, 77 years old. sob TECHNIQUE: PA and lateral views of the chest. COMPARISON: 05/26/2023 FINDINGS: Left subclavian pacemaker which is unchanged. The lungs are clear and expanded. There is no demonstrated pleural abnormality. There is moderate cardiac enlargement. Normal mediastinum and rosendo. Normal visualized pulmonary arteries. Normal visualized aortic arch and descending thoracic aorta. Normal visualized thoracic spine. Normal visualized ribs, clavicles, and shoulders. There is no demonstrated abnormality of the visualized soft tissue structures of the upper abdomen. RAD/Chest PA and Lateral IMPRESSION: No active disease. Cardiomegaly. Electronically Signed: Williams Lam MD at 8:41 EDT ,
--- NOTE | 2023-07-16 08:00 | EKG12_ITS ---
Test Reason : SOB Blood Pressure : / mmHG Vent. Rate : 060 BPM Atrial Rate : 086 BPM P-R Int : 000 ms QRS Dur : 146 ms QT Int : 474 ms P-R-T Axes : 000 059 048 degrees QTc Int : 474 ms Ventricular-paced rhythm Abnormal ECG Confirmed by PIEDAD HOLT MD ([id number]), editor at large BRAVO PADILLA ([id number]) on 07/18/2023 11:11:17 AM Referred By: Confirmed By:PIEDAD HOLT MD
--- NOTE | 2023-07-16 08:01 | EDS_ITS ---
HPI History of Present Illness Chief Complaint: Shortness of Breath Narrative Narrative: Patient is a 77-year-old male who is presenting by EMS secondary to shortness of breath. When EMS arrived, patient was 94% on room air, EMS placed patient on 4 L nasal cannula secondary to shortness of breath. Patient was just recently diagnosed with COPD. Patient has a significant heart history. Patient states that he takes Eliquis, he has a pacemaker, and he has 2 cardiac stents. Patient states he has been feeling short of breath for the past week. Patient has some mild shortness of breath at rest and with exertion. He has recently been diagnosed with COPD by corner cutter. Patient has a PCP, also has a senior compensation analyst, Dr. Richardson. Patient has no abdominal pain, nausea or vomiting. Patient does have albuterol ProAir inhaler. Patient does not wear any oxygen at home during the day or at nighttime. Patient has no recent traveling, no trauma, no other acute complaints at this time. Patient has no fever or chills. No sick contacts. Patient lives at home by himself. No other sick contacts patient is aware of. [facility] Medical History (Updated 07/16/23 @ 11:[address] Ajit Angel, DO) Anemia Anemia Atherosclerotic heart disease of [place] coronary artery without angina pectoris Atrial fibrillation Back pain due to injury Bleeding tendency Chronic anticoagulation Chronic diastolic (congestive) heart failure GERD (gastroesophageal reflux disease) GI bleed High cholesterol History of stress test HTN (hypertension), benign Hyperlipemia, mixed Irregular heartbeat Lightheadedness Longstanding persistent atrial fibrillation Multiple premature ventricular complexes Obesity Pacemaker Rheumatoid arthritis Skin cancer Syncope Tachy-cory syndrome Troponin I above reference range Unstable angina Home Medications cholecalciferol (vitamin D3) 50 mcg (2,000 unit) tablet 50 mcg PO DAILY SUPPLEMENT 04/13/21 [History Last Taken 07/16/23] colchicine 0.6 mg tablet 1.2 mg PO DAILY PRN gout 02/04/22 [History Last Taken 07/16/23] ferrous gluconate 324 mg (36 mg iron) tablet 324 mg PO DAILY SUPPLEMENT 02/04/22 [History Last Taken 07/16/23] folic acid 1 mg tablet 2 mg PO DAILY SUPPLEMENT 02/04/22 [History Last Taken 07/16/23] apixaban 5 mg tablet 5 mg PO BID BLOOD THINNER #90 tabs 05/14/22 [Rx Last Taken 07/16/23] doxazosin 1 mg tablet 1 mg PO DAILY BLOOD PRESSURE #90 tabs 05/14/22 [Rx Last Taken 07/16/23] pantoprazole 40 mg tablet,delayed release 40 mg PO DAILY ACID REFLUX #180 tabs 05/14/22 [Rx Last Taken 07/16/23] rosuvastatin 20 mg tablet 20 mg PO DAILY CHOLESTEROL #90 tabs 05/14/22 [Rx Last Taken 07/16/23] allopurinol 100 mg tablet 200 mg PO DAILY GOUT 08/31/22 [History Last Taken 07/16/23] gabapentin 100 mg capsule 100 mg PO TID NEUROPATHY 08/31/22 [History Last Taken 07/16/23] acetaminophen 325 mg tablet (Tylenol) 325 mg PO Q6H PRN pain 03/12/23 [History Last Taken 07/16/23] lidocaine 5 % topical patch 2 patch topical DAILY pain 03/12/23 [History Last Taken 07/16/23] aspirin 81 mg chewable tablet 81 mg PO DAILY #30 tabs 03/15/23 [Rx Last Taken 07/16/23] metoprolol succinate 50 mg tablet,extended release 24 hr 75 mg (1.5 x 50 mg) PO BID #90 tabs 04/25/23 [Rx Last Taken 07/16/23] albuterol sulfate 90 mcg/actuation aerosol inhaler (Ventolin HFA) 2 puff inhalation Q4H PRN PRN Wheezing ##1 05/26/23 [Rx Last Taken 07/16/23] benzonatate 200 mg capsule 200 mg PO TID PRN cough #14 caps 05/26/23 [Rx Last Taken 07/16/23] guaifenesin 1,200 mg tablet, extended release 12 hr (Mucinex) 1,200 mg PO BID PRN congestion #10 tabs 05/26/23 [Rx Last Taken 07/16/23] benzonatate 100 mg capsule 200 mg (2 x 100 mg) PO TID PRN cough #20 caps 07/16/23 [Rx Last Taken Unknown] xamimqrjwtvnxzx-juguniwoqartsby-VU 2 mg-30 mg-10 mg/5 mL oral syrup (Bromfed DM) 10 ml PO Q6H PRN sinus symptoms #200 mL 07/16/23 [Rx Last Taken Unknown] isosorbide mononitrate 30 mg tablet,extended release 24 hr 30 mg PO DAILY #30 tabs 07/16/23 [Rx Last Taken Unknown] Allergy/AdvReac Type Severity Reaction Status Date / Time lisinopril Allergy Angioedema Verified 05/26/23 13:34 Penicillins [PCN] Allergy Hives Verified 05/26/23 13:34 Family History Other CVA (cerebral vascular accident) Hypertension Surgical History H/O cardiac catheterization History of appendectomy History of arthroscopic knee surgery History of colonoscopy with polypectomy History of coronary artery stent placement (09/22/20) History of heart artery stent History of left heart catheterization (02/05/22) History of permanent cardiac pacemaker placement (12/15/20) Social History Smoking Status: Former smoker ROS ROS ED ROS Narrative REVIEW OF SYSTEMS: Unless otherwise stated in this report the patient's positive and negative responses for review of systems for constitutional, eyes, ENT, cardiovascular, respiratory, gastrointestinal, neurological, , musculoskeletal, and integument systems and related systems to the presenting problem are either stated in the history of present illness or were not pertinent or were negative for the symptoms and/or complaints related to the presenting medical problem. EXAM Physical Exam Narrative Exam Narrative: Vital signs reviewed and patient is not hypoxic. General: The patient appears well and in no apparent distress. Patient is resting comfortably on cart. Not toxic, lethargic, or listless. Skin: Warm, dry, no pallor noted. There is no rash noted. Head: Normocephalic, atraumatic Eye: Normal conjunctiva, no drainage, EOMI. PERRL. Ears, Nose, Mouth, and Throat: oral mucosa is moist. Nares patent. Mouth without vesicles. Mild clear drainage noted to the posterior pharynx Cardiovascular: Regular Rate and Rhythm, no murmurs, gallops, or rubs Respiratory: Patient is in no distress, no accessory muscle use, lungs are equal breath sounds bilateral, minimal crackles to bilateral bases with diffuse wheezing. Back: non-tender, no CVA tenderness bilaterally to percussion. NO CTLS midline or paraspinal tenderness to palpation. GI: Soft, no tenderness to palpation, no masses appreciated. No rebound, guarding, or rigidity noted. Musculoskeletal: The patient has full range of motion of all extremities and joints with no difficulty. Patient has no motor, no sensory deficits. Neurological: A&O x4, normal speech, no focal neurological deficits. Psychiatric: Cooperative Const Vital Signs: 07/16/23 07:55 07/16/23 07:59 07/16/23 08:23 Temperature 97.2 F L 97.2 F L Temperature Source Oral Temporal Pulse Rate 77 66 Respiratory Rate 24 H 23 H Respiratory Effort Normal Non-Labored Short of Breath Respiratory Depth Normal Respiratory Pattern Normal Blood Pressure 159/74 H 148/69 H Blood Pressure Mean 102 95 Pulse Ox 94 92 Oxygen Delivery Method Room Air Room Air 07/16/23 08:54 07/16/23 08:59 07/16/23 09:00 Temperature 98.5 F 98.5 F Temperature Source Oral Oral Pulse Rate 70 69 69 Respiratory Rate 19 H 19 H 19 H Respiratory Effort Respiratory Depth Respiratory Pattern Blood Pressure 141/68 H 150/78 H 150/78 H Blood Pressure Mean 92 102 102 Pulse Ox 96 95 95 Oxygen Delivery Method Room Air Room Air Room Air 07/16/23 08:07 07/16/23 08:07 07/16/23 10:00 Temperature 98 F Temperature Source Temporal Pulse Rate 75 72 Respiratory Rate 25 H 15 Respiratory Effort Respiratory Depth Respiratory Pattern Blood Pressure 135/68 H Blood Pressure Mean 90 Pulse Ox 93 94 Oxygen Delivery Method Room Air Room Air 07/16/23 11:00 07/16/23 11:18 07/16/23 11:31 Temperature 97.9 F 97.9 F Temperature Source Oral Pulse Rate 66 66 Respiratory Rate 16 16 Respiratory Effort Respiratory Depth Respiratory Pattern Blood Pressure 155/92 H 155/98 H Blood Pressure Mean 113 117 Pulse Ox 96 98 93 Oxygen Delivery Method Room Air Room Air 07/16/23 11:31 Temperature Temperature Source Pulse Rate 80 Respiratory Rate 19 H Respiratory Effort Respiratory Depth Respiratory Pattern Blood Pressure Blood Pressure Mean Pulse Ox Oxygen Delivery Method MDM MDM MDM Narrative Medical decision making narrative: Patient troponin is 281. In the middle of February, patient was admitted to the hospital for elevated troponins as well. Patient's troponins were in the 380s at that time. Patient had a repeat cardiac cath at that time, which showed 2 functional stents, no other acute abnormalities. Patient's senior compensation analyst is Dr. Richardson. Doing chart review, there was a chart there was reviewed from April for of this year from cardiology nurse practitioner. It is seen that patient has chronic diastolic dysfunction, patient has a dual-chamber pacemaker. Patient has pacemaker placed in December 2020. Patient has 2 stents. Patient has a history of A-fib. Patient had a repeat cardiac cath in February 24, patient stents look good at that time. Chest x-ray shows no significant findings today. Patient will have repeat troponin, then we will speak to cardiology. Patient does feel slightly better after breathing treatment was given [address] I initially spoke to Dr. Hogan on the telephone, he is covering for Dr. Richardson. We reviewed patient's 2 troponins, going from 2 81-2 74, along with patient's been aspirated peptide. We discussed patient's symptoms of shortness of breath for a week, his past cardiac cath, also 2 stents and pacemaker. We discussed his EKG as well. The thought was to possibly keep patient for observation and monitoring. [address] Hogan a second time, he had reviewed all patient's cardiac workup, testing, hospital and office visits in the past 6 months. He will be coming down to the ER to see and evaluate this patient and decide whether patient does need to be admitted for observation or not. Patient has been updated on this as well, patient would like to go home and does not want to be admitted to the hospital to sit here for couple days if possible. Patient says that before his stents, he did have more shortness of breath and weak and fatigue symptoms, not necessarily significant heavy chest pain or pressure. Patient will be evaluated by Dr. Hogan. Dr. Hogan agrees the patient may be discharged. He agrees to send patient home with indoor 30 mg in the morning as discussed. Patient agrees that he will use Tylenol as needed for headache that indoor might occur. Patient will follow up with cardiology in the office this week. Education in treating RSV at home was discussed with patient as well. Patient will use his albuterol inhaler every 4 hours while awake the next 7 days. Patient was sent home with prescription for Tessalon Perles and Bromfed use as needed. Patient will return if heavy chest pressure, squeezing, tightness, or any other acute complaints. No questions at discharge. 2 phone discussions and 2 different in person discussions with Dr. Hogan, cardiology. Dr. valero saw patient in the ER at bedside as well. Critical care time 33 minutes exclusive from separate billable procedures that were performed. The following was considered in the determination of critical care but not limited to the level of medical decision making, intensive cardiac and/or respiratory monitoring, frequent vital sign monitoring, evaluation of laboratory studies, evaluation of radiographic studies, oxygen monitoring, and constant monitoring and speaking to family at bedside Lab Data Attestation: I reviewed the patient's lab results. Labs: Laboratory Results - last 24 hr 07/16/23 07/16/23 08:19 09:32 WBC 8.1 RBC 4.02 L Hgb 11.0 L Hct 34.8 L MCV 86.6 MCH 27.4 MCHC 31.6 L RDW Std Deviation 58.8 H RDW Coeff of Misti 19.2 H Plt Count 162 MPV 12.1 H Immature Gran % (Auto) 0.500 Neut % (Auto) 67.9 Lymph % (Auto) 15.1 L Branch % (Auto) 15.5 H Eos % (Auto) 0.5 Baso % (Auto) 0.5 Absolute Neuts (auto) 5.5 Absolute Lymphs (auto) 1.22 Nucleated RBC % 0 Differential Comment SCANNED Reactive Lymphocytes 1+ Sodium 137 Potassium 3.5 Chloride 102 Carbon Dioxide 30.0 Anion Gap 5 BUN 17 Creatinine 1.21 Est GFR (MDRD) Af Amer 75 Est GFR (MDRD) Non-Af 62 BUN/Creatinine Ratio 14.0 Glucose 126 H Calcium 8.8 Troponin I High Sens 281 H* 274 H* B-Natriuretic Peptide 398.9 H Patient troponin is 281, being atretic peptide is elevated at 398. Radiography Diagnostic Testing: Clinical Impression(s) from Imaging Studies Chest X-Ray 07/16/23 07:59 IMPRESSION: No active disease. Cardiomegaly. Electronically Signed: Williams Lam MD at 8:41 EDT , EKG Initial EKG: Comments: EKG interpretation. Ventricular paced rhythm at 60 beats a minute. Normal axis deviation. No acute ST elevation, no acute ectopy. QTc of 474. Discharge Plan Triage Chief Complaint: Shortness of Breath ED Provider: Ajit Angel Dx/Rx/DC Orders Clinical Impression: RSV bronchitis, Dyspnea, COPD exacerbation Instructions: COPD: Wheezing and Chest Tightness, RSV (Respiratory Syncytial Virus), COPD: Using Inhalers, ED Dyspnea Prescriptions: New isosorbide mononitrate 30 mg tablet extended release 24 hr 30 mg PO DAILY Qty: 30 0RF Rx Instructions: TAKE IN AM [id number] [Bromfed DM] 2-30-10 mg/5 mL syrup 10 ml PO Q6H PRN (Reason: sinus symptoms) Qty: 200 0RF benzonatate 100 mg capsule 200 mg PO TID PRN (Reason: cough) Qty: 20 0RF No Action gabapentin 100 mg capsule 100 mg PO TID cholecalciferol (vitamin D3) 50 mcg (2,000 unit) Tablet 50 mcg PO DAILY allopurinol 100 mg tablet 200 mg PO DAILY folic acid 1 mg tablet 2 mg PO DAILY colchicine 0.6 mg tablet 1.2 mg PO DAILY PRN (Reason: gout) Hold Instructions: MD Ordered ferrous gluconate 324 mg (36 mg iron) Tablet 324 mg PO DAILY Hold Instructions: MD Ordered lidocaine 5 % adhesive patch,medicated 2 patch topical DAILY Rx Instructions: leave on most painful area for up to 12 hrs acetaminophen [Tylenol] 325 mg tablet 325 mg PO Q6H PRN (Reason: pain) aspirin 81 mg tablet,chewable 81 mg PO DAILY Qty: 30 2RF guaifenesin [Mucinex] 1,200 mg tablet extended release 12hr 1,200 mg PO BID PRN (Reason: congestion) Qty: 10 0RF benzonatate 200 mg capsule 200 mg PO TID PRN (Reason: cough) Qty: 14 0RF albuterol sulfate [Ventolin HFA] 90 mcg/actuation HFA aerosol inhaler 2 puff inhalation Q4H PRN PRN (Reason: Wheezing) Qty: 1 0RF apixaban 5 mg tablet 5 mg PO BID Qty: 90 3RF doxazosin 1 mg tablet 1 mg PO DAILY Qty: 90 3RF rosuvastatin 20 mg tablet 20 mg PO DAILY Qty: 90 3RF pantoprazole 40 mg tablet,delayed release (DR/EC) 40 mg PO DAILY Qty: 180 3RF metoprolol succinate 50 mg tablet extended release 24 hr 75 mg PO BID Qty: 90 11RF [facility]errals: [facility] [Primary Care Provider] - Activity Restrictions/Additional Instructions: Take your Imdur 30 mg in the morning per Dr. Hogan You may have a headache in the first 3 to 4 days from your Imdur, use Tylenol as needed. Use your albuterol inhaler every 4 hours while awake for the next 5 to 7 days to help treat your shortness of breath symptoms. [facility] if any other additional medication is needed for COPD. Use the Tessalon Perles and Bromfed as needed For coughing symptoms. Use [id number] Claritin, Zyrtec or Rachel to help with allergy symptoms. Use Flonase daily to help with sinus congestion. If you are having any other significant chest heaviness, tightness, pressure, or any other acute complaints, Return back to the ER for further evaluation and testing Disposition Disposition: Home, Self Care Discharge Date/Time: 07/16/23 11:50
[2023-07-16] MEDS: Ipratropium/Albuterol Sulfate 3 ML AMPUL.NEB INHALATION ×2 (08:16→11:29)
[2023-07-16] MEDS: 0.9% Normal Saline (1000mL) 1,000 ML 150 ML IV (08:16)
[2023-07-16 08:30] LABS: Absolute Lymphocyte Count 1.22 X10^3/uL (0.83-4.51); Absolute Neutrophil Count 5.5 X10^3/uL (2.0-7.7); Basophil# 0.04 X10^3/uL; Basophil% 0.5 % (0-1); Eosinophil# 0.04 X10^3/uL; Eosinophils% 0.5 % (0-5); Hematocrit 34.8 % (40-54); Lymphocyte # 1.22 X10^3/ul (0.83-4.51); Lymphocyte % 15.1 % (19-41); Mean Corp Hgb Conc 31.6 g/dL (32-36); Mean Corpuscular Hgb 27.4 pg (27.0-32.0); Mean Corpuscular Volume 86.6 fL (80-94); Mean Platelet Vol. 12.1 fl (6.2-12.0); Monocyte# 1.25 X10^3/uL; Monocyte% 15.5 % (0-10); NRBC Flagged by Analyzer 0 % (0-5); Neutrophil # 5.47 X10^3/uL (2.7-7.7); Neutrophil % 67.9 % (47-70); POSITIVE MORPHOLOGY YES; Platelet Count 162 K/mm3 (150-450); RBC Distribution Width CV 19.2 % (11.6-14.6); RBC Distribution Width SD 58.8 fl (35.1-43.9); Red Blood Count 4.02 M/mm3 (4.6-6.2); White Blood Count 8.1 K/mm3 (4.4-11.0)
[2023-07-16 08:36] LABS: Differential Indicated SCAN CRITERIA MET
[2023-07-16 08:47] LABS: Anion Gap 5 (5-15); BUN 17 mg/dL (7-18); Calcium,Total 8.8 mg/dL (8.5-10.1); Chloride 102 mmol/L (98-107); Creatinine, Serum 1.21 mg/dL (0.70-1.30); EST Glomerular Filtration Rate 62 mL/min (>60); Est Glom Filt Rate - Afr Amer 75 mL/min (>60); Glucose 126 mg/dL (74-106); Potassium 3.5 mmol/L (3.5-5.1); Sodium Level 137 mmol/L (136-145); Troponin-I HS 281 pg/mL (3.0-78.0)
[2023-07-16 09:01] LABS: BNP,B-Type NATRIURETIC PEPTIDE 398.9 pg/mL (0-100)
[2023-07-16 09:07] LABS: Differential Comment SCANNED; Reactive Lymphocyte 1+
[2023-07-16 10:03] LABS: Troponin-I HS 274 pg/mL (3.0-78.0)
--- NOTE | 2023-07-16 10:49 | PCM.CONS.C ---
Assessment & Plan Assessment/Plan (1) Troponin I above reference range: PLAN: The patient's troponins are 281 and then decreased to 274 on the delta troponin. The patient has a history of being admitted in February 2023 with troponins in the 380 range which were also flat. A cath at that point in time is documented above. There is small vessel disease but only amenable to medical therapy. I feel we should add Imdur to his medical regiment given his small vessel coronary disease. I discussed the situation in detail with the patient in the emergency department staff. I feel the patient can be discharged to home with the addition of Imdur to his medical regimen. He does continue to wheeze and I believe that majority of his symptoms are related to his pulmonary situation he complains primarily of the reason he came in was a cough. On physical exam he does continue to wheeze and has poor air movement. The EKG is a chronically paced rhythm. His last pacemaker check confirmed chronic persistent atrial fibs/flutter with a ventricular paced rhythm. (2) Atrial fibrillation: QUALIFIERS: Atrial fibrillation type: permanent Qualified Code(s): I48.21 - Permanent atrial fibrillation PLAN: The atrial fibrillation is felt to be chronic. His pacemaker check June 2023 revealed persistent atrial fibrillation with an ventricular paced rate of 60. His EKG reveals the same thing in the emergency department today. The patient remains on Eliquis. His heart rate is well-controlled on his metoprolol dose. 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 (3) HTN (hypertension), benign: PLAN: Blood pressures improved once that his breathing status has improved. He should be continued on his current medical therapy. (4) Tachy-cory syndrome: PLAN: Patient is status post permanent pacemaker implant followed in the [facility] device clinic (5) SOB (shortness of breath): PLAN: The shortness of breath and cough was the primary reason for the patient coming in. This has been ongoing for 6 days. He does report it feels better after his aerosol treatment. But he continues to to wheeze. I did discuss further treatment options with the emergency department. Also discussed with the patient he should follow-up with his [facility] pulmonary team to expedite the delivery of his aerosol treatment equipment. PLAN: Plan 1. Add Imdur 30 mg every morning to the medical regimen. I did inform him about the likelihood of transient headaches which can be treated with Tylenol. 2. Continue other current medical regiment. 3. Should follow-up per previous arranged appointment with the [facility] office. 4. If his symptoms increase he was encouraged to return to the emergency department. I feel that given his history of his enzymes actually being lower now than they were in February when he had a documented catheterization with no significant change in his coronary anatomy that he can be cleared from a cardiovascular standpoint to be discharged home. I went over this in detail with the patient and he was agreeable with this plan. HPI Consult Data Date of Consult: 07/16/23 HPI Narrative HPI Narrative: RUSSELL KULKARNI, is a 77 M who presents with a history of shortness of breath that started approximately a week ago. The patient has a history of COPD coronary disease and a permanent pacemaker. He also carries a history of permanent atrial fibs/flutter. The patient reports that the symptoms are similar to what he experienced when his stents were deployed. This was several years ago. The patient was recently admitted in February 2023 with a similar episode primarily described as shortness of breath was coughing just like what he is having today. It is difficult to get an accurate history about how he actually presented back prior to his stenting procedure. In February 2023 his enzymes were in the 380 range they remained flat on the delta troponin. He underwent left heart catheterization which showed that his stents were widely patent but he had small vessel disease and a second diagonal which was jailed within the stent in the LAD and he had disease in a small OM 2 branch of 80%. Both of these branches were too small to intervene upon. The patient has remained on Eliquis uninterrupted with a baby aspirin for his atrial fibrillation and coronary disease. The patient is also on metoprolol and rosuvastatin in his home environment. The patient's primary complaint at this time is shortness of breath and coughing. His troponins first set was 281 it went down to 274 on the delta troponin. The patient's O2 sat is 95% after aerosol treatments his heart rate is 60 his blood pressure in the 150/70 range. The patient denies any chest tightness or chest pain. He denies any PND orthopnea denies any lower extremity edema. [facility] he reports he is a non-smoker. He is in the process of getting DME for aerosol machine in his home. [facility] Medical History (Updated 07/16/23 @ 11:[address] Pavel Hogan MD) Anemia Anemia Atherosclerotic heart disease of creek coronary artery without angina pectoris Atrial fibrillation Back pain due to injury Bleeding tendency Chronic anticoagulation Chronic diastolic (congestive) heart failure GERD (gastroesophageal reflux disease) GI bleed High cholesterol History of stress test HTN (hypertension), benign Hyperlipemia, mixed Irregular heartbeat Lightheadedness Longstanding persistent atrial fibrillation Multiple premature ventricular complexes Obesity Pacemaker Rheumatoid arthritis Skin cancer Syncope Tachy-cory syndrome Troponin I above reference range Unstable angina Home Medications cholecalciferol (vitamin D3) 50 mcg (2,000 unit) tablet 50 mcg PO DAILY SUPPLEMENT 04/13/21 [History Last Taken 07/16/23] colchicine 0.6 mg tablet 1.2 mg PO DAILY PRN gout 02/04/22 [History Last Taken 07/16/23] ferrous gluconate 324 mg (36 mg iron) tablet 324 mg PO DAILY SUPPLEMENT 02/04/22 [History Last Taken 07/16/23] folic acid 1 mg tablet 2 mg PO DAILY SUPPLEMENT 02/04/22 [History Last Taken 07/16/23] apixaban 5 mg tablet 5 mg PO BID BLOOD THINNER #90 tabs 05/14/22 [Rx Last Taken 07/16/23] doxazosin 1 mg tablet 1 mg PO DAILY BLOOD PRESSURE #90 tabs 05/14/22 [Rx Last Taken 07/16/23] pantoprazole 40 mg tablet,delayed release 40 mg PO DAILY ACID REFLUX #180 tabs 05/14/22 [Rx Last Taken 07/16/23] rosuvastatin 20 mg tablet 20 mg PO DAILY CHOLESTEROL #90 tabs 05/14/22 [Rx Last Taken 07/16/23] allopurinol 100 mg tablet 200 mg PO DAILY GOUT 08/31/22 [History Last Taken 07/16/23] gabapentin 100 mg capsule 100 mg PO TID NEUROPATHY 08/31/22 [History Last Taken 07/16/23] acetaminophen 325 mg tablet (Tylenol) 325 mg PO Q6H PRN pain 03/12/23 [History Last Taken 07/16/23] lidocaine 5 % topical patch 2 patch topical DAILY pain 03/12/23 [History Last Taken 07/16/23] aspirin 81 mg chewable tablet 81 mg PO DAILY #30 tabs 03/15/23 [Rx Last Taken 07/16/23] metoprolol succinate 50 mg tablet,extended release 24 hr 75 mg (1.5 x 50 mg) PO BID #90 tabs 04/25/23 [Rx Last Taken 07/16/23] albuterol sulfate 90 mcg/actuation aerosol inhaler (Ventolin HFA) 2 puff inhalation Q4H PRN PRN Wheezing ##1 05/26/23 [Rx Last Taken 07/16/23] benzonatate 200 mg capsule 200 mg PO TID PRN cough #14 caps 05/26/23 [Rx Last Taken 07/16/23] guaifenesin 1,200 mg tablet, extended release 12 hr (Mucinex) 1,200 mg PO BID PRN congestion #10 tabs 05/26/23 [Rx Last Taken 07/16/23] Allergy/AdvReac Type Severity Reaction Status Date / Time lisinopril Allergy Angioedema Verified 05/26/23 13:34 Penicillins [PCN] Allergy Hives Verified 05/26/23 13:34 Family History Other CVA (cerebral vascular accident) Hypertension Surgical History H/O cardiac catheterization History of appendectomy History of arthroscopic knee surgery History of colonoscopy with polypectomy History of coronary artery stent placement (09/22/20) History of heart artery stent History of left heart catheterization (02/05/22) History of permanent cardiac pacemaker placement (12/15/20) Social History Smoking Status: Former smoker ROS Constitutional Constitutional: Reports as per HPI Eyes Eyes: Reports systems reviewed and no addt'l complaints, except as documented ENT HEENT: Reports systems reviewed and no addt'l complaints, except as documented Cardiovascular Cardiovascular: Reports as per HPI Respiratory/Chest Respiratory/Chest: Reports as per HPI Gastrointestinal Gastrointestinal: Reports systems reviewed and no addt'l complaints, except as documented Genitourinary Genitourinary: Reports systems reviewed and no addt'l complaints, except as documented Musculoskeletal Musculoskeletal: Reports systems reviewed and no addt'l complaints, except as documented Integumentary Integumentary: Reports systems reviewed and no addt'l complaints, except as documented Neurologic Neurologic: Reports systems reviewed and no addt'l complaints, except as documented Psychiatric Psychiatric: Reports systems reviewed and no addt'l complaints, except as documented Endocrine Endocrinology: Reports systems reviewed and no addt'l complaints, except as documented Hematologic/Lymphatic Hematologic/Lymphatic: Reports systems reviewed and no addt'l complaints, except as documented Allergic/Immunologic Allergic/Immunologic: Reports systems reviewed and no addt'l complaints, except as documented Physical Exam Const alert and oriented x3 HEENT normocephalic Eyes EOMs intact bilaterally Neck no JVD Carotids: Negative for bruit Chest inspection of chest normal Chest: left pectoral incision Resp normal respiratory effort Auscultation: rhonchi lower bilaterally and wheezes expiratory wheezes, inspiratory wheezes and upper bilaterally Cardio regular rate, regular rhythm, S1 normal heart sound, S2 normal heart sound, no murmurs, no rub and no gallops Cardio Narrative: Distant heart tones Peripheral Pulses: radial pulses present GI GI Narrative: Protuberant abdomen with normal bowel sounds Extremity no pedal edema Skin no rashes or lesions noted Neuro Neuro Narrative: Alert and oriented x 3 his ability to recall exact events is somewhat limited. He does not appear to grasp the significance of comparing his symptoms at various time frames. Psych mental status grossly normal Risk Stratification Risk Stratification Applicable: Yes Age >/= 65: Yes >/= 3 CAD Risk Factors (HTN, HLD, DM, family hx of CAD, or current smoker): No Aspirin Use in the Past 7 Days: Yes Severe Angina (>/= episodes in 24 hours): No EKG ST Changes >/= 0.5mm: No Positive Cardiac Marker: Yes TERRY Risk Stratification Score: 3 TERRY % Risk: 13% Risk Charges/Coding Visit Charges OBSV E&M: 28148 Observ/hosp same date L3 Objective Data Vital Signs: Vital Signs Temp Pulse Resp BP Pulse Ox O2 Del Method 98 F 72 15 135/68 H 94 Room Air 07/16/23 10:00 07/16/23 10:00 07/16/23 10:00 07/16/23 10:00 07/16/23 10:00 07/16/23 10:00 Oxygen Delivery Method Room Air Lab / Micro Data Attestation: I reviewed the patient's lab results. 07/16/23 08:19 07/16/23 08:19 Labs: Laboratory Results - last 24 hr 07/16/23 08:19: WBC 8.1, RBC 4.02 L, Hgb 11.0 L, Hct 34.8 L, MCV 86.6, MCH 27.4, MCHC 31.6 L, RDW Std Deviation 58.8 H, RDW Coeff of Misti 19.2 H, Plt Count 162, MPV 12.1 H, Immature Gran % (Auto) 0.500, Neut % (Auto) 67.9, Lymph % (Auto) 15.[address], [place] % (Auto) 15.5 H, Eos % (Auto) 0.5, Baso % (Auto) 0.5, Absolute Neuts (auto) 5.5, Absolute Lymphs (auto) 1.22, Nucleated RBC % 0, Differential Comment SCANNED, Reactive Lymphocytes 1+, Sodium 137, Potassium 3.5, Chloride 102, Carbon Dioxide 30.0, Anion Gap 5, BUN 17, Creatinine 1.21, Est GFR (MDRD) Af Amer 75, Est GFR (MDRD) Non-Af 62, BUN/Creatinine Ratio 14.0, Glucose 126 H, Calcium 8.8, Troponin I High Sens 281 H*, B-Natriuretic Peptide 398.9 H 07/16/23 09:32: Troponin I High Sens 274 H* Micro: Microbiology 07/16/23 08:19 Mucosa - Nose SARS-CoV-2, Influenza & RSV (PCR) - Final RSV Rhythm Strip Rhythm Strip: A-fib Rate: 60 Ectopy: - (Electronically paced rhythm.) Cardiology Labs/Tests 07/16/23 08:19: WBC 8.1, RBC 4.02 L, Hgb 11.0 L, Hct 34.8 L, MCV 86.6, MCH 27.4, MCHC 31.6 L, Plt Count 162, MPV 12.1 H, Immature Gran % (Auto) 0.500, Neut % (Auto) 67.9, Lymph % (Auto) 15.[address], [place] % (Auto) 15.5 H, Eos % (Auto) 0.5, Baso % (Auto) 0.5, Absolute Neuts (auto) 5.5, Nucleated RBC % 0, Sodium 137, Potassium 3.5, Chloride 102, Carbon Dioxide 30.0, Anion Gap 5, BUN 17, Creatinine 1.21, Est GFR (MDRD) Af Amer 75, Est GFR (MDRD) Non-Af 62, BUN/Creatinine Ratio 14.0, Glucose 126 H, Calcium 8.8, B-Natriuretic Peptide 398.9 H Rhythm: EKG: ECHO: Stress Test: Cardiac Cath: PCI: CT Surgery: Holter monitor: EPS: PPM: CXR: Chest CT Scan: Radiography Diagnostic Testing: Radiology Impression Chest X-Ray 07/16/23 07:59 IMPRESSION: No active disease. Cardiomegaly. Electronically Signed: Williams Lam MD at 8:41 EDT ,
== END 2023-07-16 11:50 | disposition home or self-care (01) ==
PROVIDERS: Emergency Provider Emergency Medicine; Visit Provider Emergency Medicine
DX: J20.5 Acute bronchitis due to respiratory syncytial virus (principal); I50.32 Chronic diastolic (congestive) heart failure; I11.0 Hypertensive heart disease with heart failure; J44.0 Chronic obstructive pulmonary disease with (acute) lower respiratory infection; J44.1 Chronic obstructive pulmonary disease with (acute) exacerbation; I48.19 Other persistent atrial fibrillation; I25.10 Atherosclerotic heart disease of native coronary artery without angina pectoris; Z79.01 Long term (current) use of anticoagulants; Z79.51 Long term (current) use of inhaled steroids; Z79.899 Other long term (current) drug therapy; Z87.891 Personal history of nicotine dependence; Z95.0 Presence of cardiac pacemaker; Z95.5 Presence of coronary angioplasty implant and graft; Z79.82 Long term (current) use of aspirin
CPT/HCPCS: 71046; 80048; 83880; 84484; 85025; 87631; 93005; 94640; 94668; 96360; 96361; 99284; J7030; A4216

== ENCOUNTER → 2023-08-01 | Outpatient (CLI) | payer OTHER, SELFPAY ==
[2023-08-01 15:09] LABS: Absolute Lymphocyte Count 1.79 X10^3/uL (0.83-4.51); Absolute Neutrophil Count 3.7 X10^3/uL (2.0-7.7); Basophil# 0.05 X10^3/uL; Basophil% 0.8 % (0-1); Eosinophil# 0.18 X10^3/uL; Eosinophils% 2.7 % (0-5); Hematocrit 32.8 % (40-54); Hemoglobin 10.1 g/dL (13.0-16.5); Lymphocyte # 1.79 X10^3/ul (0.83-4.51); Lymphocyte % 26.9 % (19-41); Mean Corp Hgb Conc 30.8 g/dL (32-36); Mean Corpuscular Hgb 26.6 pg (27.0-32.0); Mean Corpuscular Volume 86.5 fL (80-94); Mean Platelet Vol. 12.9 fl (6.2-12.0); Monocyte# 0.93 X10^3/uL; NRBC Flagged by Analyzer 0 % (0-5); Neutrophil # 3.67 X10^3/uL (2.7-7.7); Neutrophil % 55.1 % (47-70); Platelet Count 165 K/mm3 (150-450); RBC Distribution Width CV 19.4 % (11.6-14.6); Red Blood Count 3.79 M/mm3 (4.6-6.2); White Blood Count 6.7 K/mm3 (4.4-11.0)
[2023-08-01 15:35] LABS: AST(SGOT) 20 U/L (15-37); Alanine Aminotransfer ALT/SGPT 14 U/L (16-61); Albumin, Serum 3.3 g/dL (3.2-5.0); Alkaline Phosphatase 81 U/L (45-117); Anion Gap 2 (5-15); BUN 23 mg/dL (7-18); Calcium,Total 8.7 mg/dL (8.5-10.1); Chloride 107 mmol/L (98-107); Creatinine, Serum 1.35 mg/dL (0.70-1.30); EST Glomerular Filtration Rate 55 mL/min (>60); Est Glom Filt Rate - Afr Amer 66 mL/min (>60); Globulin 3.4 g/dL (2.2-4.2); Glucose 87 mg/dL (74-106); Potassium 3.8 mmol/L (3.5-5.1); Protein, Total 6.7 g/dL (6.4-8.2); Sodium Level 140 mmol/L (136-145)
== END | disposition home or self-care (01) ==
LOC: MTLAB 13:23
PROVIDERS: Referring Provider Internal Medicine Rheumatology; Visit Provider Internal Medicine Rheumatology
DX: M06.00 Rheumatoid arthritis without rheumatoid factor, unspecified site (principal); I50.9 Heart failure, unspecified; I11.0 Hypertensive heart disease with heart failure; I48.0 Paroxysmal atrial fibrillation; M19.041 Primary osteoarthritis, right hand; M19.042 Primary osteoarthritis, left hand; M18.0 Bilateral primary osteoarthritis of first carpometacarpal joints; M17.0 Bilateral primary osteoarthritis of knee; M47.897 Other spondylosis, lumbosacral region; I25.10 Atherosclerotic heart disease of native coronary artery without angina pectoris; H35.30 Unspecified macular degeneration; N40.1 Benign prostatic hyperplasia with lower urinary tract symptoms; Z79.899 Other long term (current) drug therapy
CPT/HCPCS: 36415; 80053; 85025

== ENCOUNTER → 2023-08-12 | Outpatient (CLI) | payer OTHER, SELFPAY ==
--- NOTE | 2023-08-12 15:31 | CT_ITS ---
INDICATION: CHRONIC COUGH EXAMINATION: CT CHEST WITHOUT CONTRAST - CT Chest W/O Contrast Injection TECHNIQUE: Helically acquired images were obtained of the chest. A radiation dose optimization technique was used for this scan. IV Contrast dosage and agent: None. COMPARISON: Portable chest July 16, 2023 FINDINGS: LUNGS, PLEURA AND LARGE AIRWAYS: No masses, consolidation, or edema. No pleural effusion or thickening. No pneumothorax. THYROID: No thyroid lesions. HEART AND PERICARDIUM: Heart size is enlarged. No pericardial effusion. CORONARY ARTERIES: There is multivessel coronary artery disease VESSELS: Mild atherosclerotic change of the aorta without evidence for aneurysm. MEDIASTINUM AND ROMEO: No mediastinal or hilar adenopathy. Esophagus is unremarkable. No hiatal hernia. UPPER ABDOMEN: No acute pathology. BONES: No suspicious lytic or blastic abnormality. CT/Chest without Contrast IMPRESSION: ASHD. No acute cardiopulmonary pathology Electronically Signed: Ajit Gandhi MD at 20:29 EDT ,
== END | disposition home or self-care (01) ==
LOC: CT 15:29
DX: J44.9 Chronic obstructive pulmonary disease, unspecified (principal); R06.02 Shortness of breath; R05.3 Chronic cough
CPT/HCPCS: 71250

== ENCOUNTER → 2024-09-03 | Outpatient (CLI) | payer OTHER, SELFPAY ==
[2024-09-03 11:23] LABS: Absolute Lymphocyte Count 1.56 X10^3/uL (0.83-4.51); Absolute Neutrophil Count 3.6 X10^3/uL (2.0-7.7); Basophil# 0.06 X10^3/uL; Eosinophil# 0.15 X10^3/uL; Eosinophils% 2.4 % (0-5); Hematocrit 39.6 % (40-54); Hemoglobin 13.1 g/dL (13.0-16.5); Lymphocyte # 1.56 X10^3/ul (0.83-4.51); Mean Corp Hgb Conc 33.1 g/dL (32-36); Mean Corpuscular Hgb 30.5 pg (27.0-32.0); Mean Corpuscular Volume 92.1 fL (80-94); Mean Platelet Vol. 11.6 fl (6.2-12.0); Monocyte# 0.82 X10^3/uL; Monocyte% 13.1 % (0-10); NRBC Flagged by Analyzer 0 % (0-5); Neutrophil # 3.62 X10^3/uL (2.7-7.7); Neutrophil % 57.9 % (47-70); Platelet Count 159 K/mm3 (150-450); RBC Distribution Width CV 13.9 % (11.6-14.6); RBC Distribution Width SD 47.1 fl (35.1-43.9); White Blood Count 6.3 K/mm3 (4.4-11.0)
[2024-09-03 12:31] LABS: Anion Gap 11 (5-15); BUN 21 mg/dL (4-19); BUN/Creat Ratio 17.2 RATIO (10-20); Calcium,Total 9.1 mg/dL (7.6-11.0); Carbon Dioxide 26.4 mmol/L (21.0-32.0); Chloride 99 mmol/L (98-108); Creatinine, Serum 1.24 mg/dL (0.70-1.20); EST Glomerular Filtration Rate 60 (>60); Glucose 100 mg/dL (70-99); Potassium 4.5 mmol/L (3.3-5.1); Pro- Brain NATRIURETIC PEPTIDE 1524 pg/mL (<=1800); Sodium Level 137 mmol/L (133-145)
[2024-09-03 13:07] LABS: Hemoglobin A1c 5.6 % (<=5.6)
== END | disposition home or self-care (01) ==
LOC: LAB 10:32
PROVIDERS: Referring Provider Nurse Practitioner Family; Visit Provider Nurse Practitioner Family
DX: I11.0 Hypertensive heart disease with heart failure (principal); I50.32 Chronic diastolic (congestive) heart failure; D64.9 Anemia, unspecified; R06.02 Shortness of breath; Z95.5 Presence of coronary angioplasty implant and graft
CPT/HCPCS: 36415; 80048; 83036; 83880; 85025

== ENCOUNTER 2024-12-05 19:29 | Inpatient (IN) | payer OTHER, SELFPAY ==
[2024-12-05 19:30] VITALS: BP 158/97; PULSE 59; RESP 18; TEMP 36.9; O2SAT 97; BMI 33.2
--- NOTE | 2024-12-05 21:20 | RAD_ITS ---
PROCEDURE: CHEST PA AND LATERAL 12/05/2024 REASON FOR EXAM: COUGH, WHEEZING, COPD TECHNIQUE: Procedure Code: RADCXR Modality: DX Procedure: CHEST PA AND LATERAL COMPARISON: 07/16/23 FINDINGS: Left chest pacer. Mild pulmonary vascular congestion. no focal consolidation. No pleural effusion or pneumothorax. Cardiac silhouette is stable. Calcified aortic arch. No acute fractures. RAD/Chest PA and Lateral IMPRESSION: Mild pulmonary vascular congestion. no focal consolidation. Reading Location: [facility]
[2024-12-05] MEDS: Albuterol 2.5 MG/3 ML VIAL.NEB. INHALATION (21:29)
[2024-12-05 21:30] VITALS: BP 163/62; PULSE 57; PULSE 60; RESP 16; RESP 27; O2SAT 97
[2024-12-05 21:31] VITALS: BP 181/70; PULSE 60; RESP 17; TEMP 37.8; O2SAT 100
[2024-12-05 21:33] VITALS: O2SAT 100
[2024-12-05 22:00] VITALS: BP 163/62; PULSE 57; RESP 15; TEMP 37.8; O2SAT 99
--- NOTE | 2024-12-05 22:15 | ED.VIS.DYS ---
HPI History of Present Illness Chief Complaint: Cough Detail of Chief Complaint: Cough and shaking chills that started yesterday Informant: patient and spouse/S.O. Onset/Context/Timing Onset: Yesterday Context: sudden Timing: Intermittent Quality: Positive for Dyspnea on exertion and Wheezing; Negative for Orthopnea or PND Current Severity: Mild Maximum Severity: Moderate Worsened by: Nothing Relieved by: Nothing Associated Symptoms cough, post nasal drip and chills; Negative for rhinorrhea, ear pain, fever, sore throat, subjective or sweats Chest Pain: Positive for None Narrative PE Risk Factors: Negative for Cancer, OCP + Smoking + > 35, Prior DVT or PE, Recent immobilization, Recent surgery or Recent travel Prior similar symptoms: Yes Recent Illness/Hospitalization: No PFSH PFSH Medical History Skin cancer GI bleed Atrial fibrillation Pacemaker Bleeding tendency Anemia GERD (gastroesophageal reflux disease) Rheumatoid arthritis Back pain due to injury Syncope High cholesterol History of stress test Irregular heartbeat Chronic anticoagulation Anemia HTN (hypertension), benign Hyperlipemia, mixed Tachy-cory syndrome Longstanding persistent atrial fibrillation Multiple premature ventricular complexes Obesity Chronic diastolic (congestive) heart failure Atherosclerotic heart disease of [place] coronary artery without angina pectoris Unstable angina Troponin I above reference range Lightheadedness Home Medications ?Medication ?Instructions ?Recorded ?Last Taken ?Type cholecalciferol (vitamin D3) 50 50 mcg PO DAILY SUPPLEMENT 04/13/21 07/16/23 History mcg (2,000 unit) tablet colchicine 0.6 mg tablet 1.2 mg PO DAILY PRN gout 02/04/22 07/16/23 History folic acid 1 mg tablet 2 mg PO DAILY SUPPLEMENT 02/04/22 07/16/23 History apixaban 5 mg tablet 5 mg PO BID BLOOD THINNER #90 tabs 05/14/22 07/16/23 Rx doxazosin 1 mg tablet 1 mg PO DAILY BLOOD PRESSURE #90 05/14/22 07/16/23 Rx tabs pantoprazole 40 mg tablet,delayed 40 mg PO DAILY ACID REFLUX #180 05/14/22 07/16/23 Rx release tabs rosuvastatin 20 mg tablet 20 mg PO DAILY CHOLESTEROL #90 tabs 05/14/22 07/16/23 Rx allopurinol 100 mg tablet 200 mg PO DAILY GOUT 08/31/22 07/16/23 History acetaminophen 325 mg tablet 325 mg PO Q6H PRN pain 03/12/23 07/16/23 History (Tylenol) aspirin 81 mg chewable tablet 81 mg PO DAILY #30 tabs 03/15/23 07/16/23 Rx albuterol sulfate 90 mcg/actuation 2 puff inhalation Q4H PRN PRN 05/26/23 07/16/23 Rx aerosol inhaler (Ventolin HFA) Wheezing ##1 isosorbide mononitrate 30 mg 30 mg PO DAILY #30 tabs 07/16/23 Unknown Rx tablet,extended release 24 hr fluticasone 100 mcg-salmeterol 50 1 inh inhalation BID 07/29/23 Unknown History mcg/dose blistr powdr for inhalation (Wixela Inhub) furosemide 40 mg tablet (Lasix) 40 mg PO DAILY 07/29/23 Unknown History metoprolol succinate 50 mg 50 mg PO BID 07/29/23 Unknown History tablet,extended release 24 hr gabapentin 300 mg capsule 300 mg PO TID 12/04/24 Unknown History lidocaine 5 % topical patch 2 patch topical QDAY 12/04/24 Unknown History vit C 250 mg-vit E 90 mg-zinc 40 1 tab PO BID 12/04/24 Unknown History mg-copper 1 [id number] capsule (PreserVision AREDS-2) Allergy/AdvReac Type Severity Reaction Status Date / Time lisinopril Allergy Angioedema Verified 12/05/24 19:32 Penicillins (PCN) Allergy Hives Verified 12/05/24 19:32 Family History Other CVA (cerebral vascular accident) Hypertension Surgical History History of appendectomy History of heart artery stent H/O cardiac catheterization History of colonoscopy with polypectomy History of permanent cardiac pacemaker placement (12/15/20) History of coronary artery stent placement (09/22/20) History of left heart catheterization (02/05/22) History of arthroscopic knee surgery Social History Smoking Status: Former smoker how long ago did patient quit smokin years ago alcohol intake: never substance use type: does not use caffeine: No ROS ROS ED Constitutional Constitutional ED: Reports chills; Denies fever(s) or sweats Eyes Eyes: Denies blurry vision or change in vision ENT ENT ED: Reports other Details: Mild nasal congestion. ; Denies ear pain, rhinorrhea or sore throat Cardiovascular Cardiovascular: Denies chest pain, orthopnea, palpitations or paroxysmal nocturnal dyspnea Respiratory/Chest Respiratory/Chest: Reports cough and dyspnea on exertion; Denies orthopnea, paroxysmal nocturnal dyspnea or sputum Gastrointestinal Gastrointestinal: Denies abdominal pain, diarrhea or vomiting Genitourinary Genitourinary ED: Denies dysuria, hematuria or urinary frequency Musculoskeletal Musculoskeletal: Denies arthralgias or myalgias Integumentary Denies rash Neurologic Neurologic: Denies headache(s) or weakness Psychiatric Psychiatric: Denies anxiety or depression Endocrine Endocrinology: Denies cold intolerance or heat intolerance Hematologic/Lymphatic Hematologic/Lymphatic: Reports easy bruising; Denies easy bleeding EXAM Physical Exam Const Vital Signs: 12/05/24 19:30 12/05/24 20:05 12/05/24 21:30 Temperature 98.5 F Temperature Source Oral Pulse Rate 59 L 60 Respiratory Rate 18 16 Respiratory Effort Normal Respiratory Pattern Normal Blood Pressure 158/97 H Blood Pressure Mean 117 Pulse Ox 97 Oxygen Delivery Method Room Air 12/05/24 21:30 12/05/24 21:31 12/05/24 21:33 Temperature 100.0 F H Temperature Source Oral Pulse Rate 57 L 60 Respiratory Rate 27 H 17 Respiratory Effort Respiratory Pattern Blood Pressure 163/62 H 181/70 H Blood Pressure Mean 95 107 Pulse Ox 97 100 100 Oxygen Delivery Method Room Air Room Air Room Air 12/05/24 22:00 Temperature 100.0 F H Temperature Source Oral Pulse Rate 57 L Respiratory Rate 15 Respiratory Effort Respiratory Pattern Blood Pressure 163/62 H Blood Pressure Mean 95 Pulse Ox 99 Oxygen Delivery Method Room Air Positive well nourished and well developed Constitutional Narrative: Initial vital signs were unremarkable. Blood pressure is slightly elevated. He does have a history of hypertension. He is not hypoxic. General Appearance ED: well developed HEENT Reports moist mucous membranes HEENT Narrative: Head is atraumatic normocephalic. Ears normal. Nares patent. There is no discharge. Posterior pharynx unremarkable. Is no tenderness of the frontal maxillary sinuses. Eyes PERRL and EOMs intact bilaterally General Eye ED: Negative for pale conjunctiva or scleral icterus Neck no lymphadenopathy, supple, no meningeal signs and no JVD Resp normal respiratory effort and No clear to auscultation bilaterally Effort and Inspection: Negative for pain with movement Auscultation: wheezes expiratory wheezes and throughout Cardio regular rate, regular rhythm and no murmurs GI non-tender, non-distended and no masses Auscultation: normoactive bowel sounds Palpation: soft Back/Spine no CVA tenderness Extremity normal to inspection General Extremety ED: Negative for edema or tenderness General Extremity: Negative for edema Neuro oriented x3 and CN's II-XII intact bilaterally Psych mental status grossly normal Thought Process: normal thought process Skin no wounds and skin turgor normal MDM MDM MDM Narrative Medical decision making narrative: History and physical is consistent with exacerbation COPD. He is wheezing. Will treat with prednisone p.o. DuoNeb and albuterol. He was reassessed and was moving more air but still diminished. There is no expiratory wheezing with forced expiration noted. There is rales per the respiratory therapist, which I did not appreciate. He had rigors in front of me. In light of this blood work was obtained. Was informed by nurse that is demanding a lidocaine patch and Tylenol. These were ordered. History & Record Review Discussion w/independent historian: Patient and Significant other Lab Data Attestation: I reviewed the patient's lab results. Lab results narrative: White count is unremarkable. There is a slight shift. H&H is normal. Indices are normal Labs: Laboratory Results - last 24 hr 12/05/24 12/05/24 20:25 22:05 WBC 9.0 RBC 4.33 L Hgb 13.2 Hct 39.0 L MCV 90.1 MCH 30.5 MCHC 33.8 RDW Std Deviation 45.3 H RDW Coeff of Misti 13.5 Plt Count 114 L MPV 11.4 Immature Gran % (Auto) 1.000 H Neut % (Auto) 70.9 H Lymph % (Auto) 14.7 L [place] % (Auto) 10.7 H Eos % (Auto) 1.9 Baso % (Auto) 0.8 Absolute Neuts (auto) 6.4 Absolute Lymphs (auto) 1.32 Nucleated RBC % 0 Lactic Acid 3.4 H* Lactate is 3.4. Patient appears ill. With elevated temperature elevated lactate will contact hospitalist for observation [facility]. My opinion since patient is gotten worse even though his breathing has improved and he now has a fever with an elevated lactate and he is on no medication that would explain his elevated lactate in my opinion he should be admitted and observed for 24 hours on IV antibiotics. Because of his reaction to penicillin he was treated with levofloxacin. Radiography Chest X-Ray - ED: 2 View and Read by ED Physician (There is chronic changes noted. There is no infiltrate or effusion noted.) Diagnostic Testing: Clinical Impression(s) from Imaging Studies Chest X-Ray 12/05/24 21:20 IMPRESSION: Mild pulmonary vascular congestion. no focal consolidation. Reading Location: [facility] The radiology report was reviewed. The x-ray was reexamined by me. There is chronic changes. There is no cephalization curly B-lines or evidence of effusion. Treatment and Re-Evaluation :: Review of vital signs indicates patient now has an elevated temperature of 100.0. Based on age that by definition is a fever. Will start on antibiotics, doxycycline. Discharge Plan Dx/Rx/DC Orders Clinical Impression: Acute exacerbation of chronic obstructive pulmonary disease, HTN (hypertension), benign, Atrial fibrillation, Acute bronchospasm, Acidosis, lactic, Rigors Disposition Disposition: Acute Care Hospital [facility]
[2024-12-05 22:26] LABS: Hematocrit 39.0 % (40-54); Hemoglobin 13.2 g/dL (13.0-16.5); Immature Granulocytes Count 0.090 X10^3/uL (0.0-0.0); Mean Corp Hgb Conc 33.8 g/dL (32-36); Mean Corpuscular Volume 90.1 fL (80-94); Mean Platelet Vol. 11.4 fl (6.2-12.0); NRBC Flagged by Analyzer 0 % (0-5); Platelet Count 114 K/mm3 (150-450); RBC Distribution Width CV 13.5 % (11.6-14.6); RBC Distribution Width SD 45.3 fl (35.1-43.9); Red Blood Count 4.33 M/mm3 (4.6-6.2); White Blood Count 9.0 K/mm3 (4.4-11.0)
[2024-12-05] MEDS: Lidocaine 5% Patch 1 PATCH TOPICAL (22:27)
[2024-12-05 23:00] VITALS: BP 154/67; PULSE 55; RESP 20; TEMP 37.5; O2SAT 96
--- NOTE | 2024-12-05 23:25 | PCM.HP.STD ---
HPI - General General Date of Admission: 12/05/24 Date of Service: 12/05/24 Chief Complaint: Cough, dyspnea, wheezing, chills. HPI Narrative The patient is a 79 y/o M w/ PMHx: GERD w/ Hx GI bleed, Obesity, Chronic anemia, PAF, Rheumatoid arthritis, Tachy-Craig syndrome s/p pacemaker status, HFpEF, CAD s/p PCI, HTN, HLD, COPD, Former tobacco use who presents to the [facility] ED on 12/05/2024 with history of onset of significantly worsening dyspnea, worse with exertion with wheezing as well as cough, nonproductive in addition to chills starting over the last 48 hours progressively worsening with nasal congestion prompting eventual ED evaluation to be cautious. Patient reports also that his who is present has been sick with head cold, congestion, cough with but not markedly productive of which she has also had however in addition to this as noted he has been more short of breath and wheezing. Workup in the ED included initially T98.5, heart rate 59, BP 158/97, respiratory rate 18, 97% on room air with most recent repeat vitals T100 oral, heart rate 57, BP 163/62, respiratory rate 15, 99% on room air, CBC with WBC 9.0, hemoglobin 13.2, platelet 114 with increased immature granulocytes, lactic acid 3.4, pending CMP upon requested evaluation of patient, chest x-ray with mild pulmonary vascular congestion with no acute cardiopulmonary findings otherwise, Bld Cx x 2 pending per ED. In the ED patient ministered prednisone 60 mg p.o. x 1, lidocaine topical patch, Levaquin 750 mg IV x 1, DuoNeb and albuterol therapy in addition to doxycycline 100 mg p.o. x 1 and Tylenol 650 mg p.o. x 1. In the ED patient initially had appeared more well and there had been a plan likely for discharge to home per discussion with ED physician but he became significantly worse in appearance with severe rigors and more ill-appearing thus decision for admission. [facility] Medical History (Updated 12/05/24 @ 23:[address] Radha Mosley MD) Skin cancer GI bleed Pacemaker GERD (gastroesophageal reflux disease) Rheumatoid arthritis Back pain due to injury Syncope High cholesterol Chronic anticoagulation Anemia HTN (hypertension), benign Hyperlipemia, mixed Tachy-craig syndrome Longstanding persistent atrial fibrillation Multiple premature ventricular complexes Obesity Chronic diastolic (congestive) heart failure Atherosclerotic heart disease of [place] coronary artery without angina pectoris Home Medications ?Medication ?Instructions ?Recorded ?Last Taken ?Type cholecalciferol (vitamin D3) 50 50 mcg PO DAILY SUPPLEMENT 04/13/21 07/16/23 History mcg (2,000 unit) tablet colchicine 0.6 mg tablet 1.2 mg PO DAILY PRN gout 02/04/22 07/16/23 History folic acid 1 mg tablet 2 mg PO DAILY SUPPLEMENT 02/04/22 07/16/23 History apixaban 5 mg tablet 5 mg PO BID BLOOD THINNER #90 tabs 05/14/22 07/16/23 Rx doxazosin 1 mg tablet 1 mg PO DAILY BLOOD PRESSURE #90 05/14/22 07/16/23 Rx tabs pantoprazole 40 mg tablet,delayed 40 mg PO DAILY ACID REFLUX #180 05/14/22 07/16/23 Rx release tabs rosuvastatin 20 mg tablet 20 mg PO DAILY CHOLESTEROL #90 tabs 05/14/22 07/16/23 Rx allopurinol 100 mg tablet 200 mg PO DAILY GOUT 08/31/22 07/16/23 History acetaminophen 325 mg tablet 325 mg PO Q6H PRN pain 03/12/23 07/16/23 History (Tylenol) aspirin 81 mg chewable tablet 81 mg PO DAILY #30 tabs 03/15/23 07/16/23 Rx albuterol sulfate 90 mcg/actuation 2 puff inhalation Q4H PRN PRN 05/26/23 07/16/23 Rx aerosol inhaler (Ventolin HFA) Wheezing ##1 isosorbide mononitrate 30 mg 30 mg PO DAILY #30 tabs 07/16/23 Unknown Rx tablet,extended release 24 hr fluticasone 100 mcg-salmeterol 50 1 inh inhalation BID 07/29/23 Unknown History mcg/dose blistr powdr for inhalation (Wixela Inhub) furosemide 40 mg tablet (Lasix) 40 mg PO DAILY 07/29/23 Unknown History metoprolol succinate 50 mg 50 mg PO BID 07/29/23 Unknown History tablet,extended release 24 hr gabapentin 300 mg capsule 300 mg PO TID 12/04/24 Unknown History lidocaine 5 % topical patch 2 patch topical QDAY 12/04/24 Unknown History vit C 250 mg-vit E 90 mg-zinc 40 1 tab PO BID 12/04/24 Unknown History mg-copper 1 [id number] capsule (PreserVision AREDS-2) Allergy/AdvReac Type Severity Reaction Status Date / Time lisinopril Allergy Angioedema Verified 12/05/24 19:32 Penicillins (PCN) Allergy Hives Verified 12/05/24 19:32 Family History (Updated 12/05/24 @ 23:[address] Radha Mosley MD) Mother Hypertension Cancer Father CVA (cerebral vascular accident) Dementia Surgical History History of appendectomy History of heart artery stent H/O cardiac catheterization History of colonoscopy with polypectomy History of permanent cardiac pacemaker placement (12/15/20) History of coronary artery stent placement (09/22/20) History of left heart catheterization (02/05/22) History of arthroscopic knee surgery Social History (Updated 12/05/24 @ 23:[address] Radha Mosley MD) household members: spouse Smoking Status: Former smoker how long ago did patient quit smoking: Quit ~ 50 years ago, smoked ~1 ppd since teen until quit. alcohol intake: never substance use type: does not use caffeine: No ROS ROS Narrative Admission Review of Systems: CONSTITUTIONAL: No weight loss, + chills, subjective potentially fevers, weakness or fatigue. HEENT: + Congestion, facial pressure/head cold sensation. Eyes: No visual loss, blurred vision, double vision or yellow sclerae. Ears, Nose, Throat: No hearing loss, sneezing,runny nose or sore throat. SKIN: No rash or itching, lesions, wounds. CARDIOVASCULAR: No chest pain, chest pressure or chest discomfort, palpitations, edema, orthopnea, syncopal events. RESPIRATORY: + Dyspnea, worse with exertion, cough, wheezing. No hemoptysis. GASTROINTESTINAL: No anorexia, nausea, vomiting or diarrhea, abdominal pain, melena, BRBPR. GENITOURINARY: No dysuria, frequency, urgency or retention. NEUROLOGICAL: No headache, dizziness, syncope, paralysis, ataxia, numbness or tingling in the extremities, focal weakness, change in bowel or bladder control, seizure. MUSCULOSKELETAL: + muscle, back pain, joint pain or stiffness. HEMATOLOGIC + chronic anemia, easy bleeding/bruising. LYMPHATICS: No enlarged nodes. No history of splenectomy. PSYCHIATRIC: No history of depression or anxiety. ENDOCRINOLOGIC: No reports of sweating. + cold or heat intolerance. No polyuria or polydipsia. ALLERGIES: + History of hives, angioedema. Vital Signs Vital Signs Vital Signs: 12/05/24 19:30 12/05/24 20:05 12/05/24 21:30 Temperature 98.5 F Temperature Source Oral Pulse Rate 59 L 60 Respiratory Rate 18 16 Respiratory Effort Normal Respiratory Pattern Normal Blood Pressure 158/97 H Blood Pressure Mean 117 Pulse Ox 97 Oxygen Delivery Method Room Air 12/05/24 21:30 12/05/24 21:31 12/05/24 21:33 Temperature 100.0 F H Temperature Source Oral Pulse Rate 57 L 60 Respiratory Rate 27 H 17 Respiratory Effort Respiratory Pattern Blood Pressure 163/62 H 181/70 H Blood Pressure Mean 95 107 Pulse Ox 97 100 100 Oxygen Delivery Method Room Air Room Air Room Air 12/05/24 22:00 Temperature 100.0 F H Temperature Source Oral Pulse Rate 57 L Respiratory Rate 15 Respiratory Effort Respiratory Pattern Blood Pressure 163/62 H Blood Pressure Mean 95 Pulse Ox 99 Oxygen Delivery Method Room Air Weight Weight: 265 lb 9 oz Body Mass Index (BMI) 33.2 Physical Exam Narrative Physical Examination: General: Awake, alert, oriented x 3 and cooperative, seated upright in the ED bed, fatigued, noted tachycardia with heart rate 120 on the monitor. Skin: Normal color, normal turgor, no icterus, no cyanosis except occasional stage ecchymoses, abrasion. HEENT: AT/NC, EOMI, PERRLA, mildly dry MM, no carotid bruits or JVD noted. Lungs: Diminished, greater bases, mild tachypnea, occasional end expiratory wheeze, no evidence of any distress, no appreciated rhonchi or rales. Heart: Currently tachycardic; no gallop, rub audible. Abdomen: Soft, obese, NTTP, ND, distant normal BS, no appreciated HSM. Extremities: No cyanosis, no clubbing, mild ankle not markedly pitting edema. Neurological: Patient awake, alert, oriented as noted, cognitive function intact; pupils equally reactive to light and accommodation, cranial nerves grossly normal, moving all 4 extremities, no focal deficits, strength moderately globally decreased secondary to acute presentation complaints. Psychiatric: Affect appears fatigued, no acute evidence of depressive or anxiety feelings. Results Lab / Micro Data 12/05/24 20:25 12/05/24 23:33 Labs: Laboratory Results - last 24 hr 12/05/24 20:25: WBC 9.0, RBC 4.33 L, Hgb 13.2, Hct 39.0 L, MCV 90.1, MCH 30.5, MCHC 33.8, RDW Std Deviation 45.3 H, RDW Coeff of Misti 13.5, Plt Count 114 L, MPV 11.4, Immature Gran % (Auto) 1.000 H, Neut % (Auto) 70.9 H, Lymph % (Auto) 14.7 L, [place] % (Auto) 10.7 H, Eos % (Auto) 1.9, Baso % (Auto) 0.8, Absolute Neuts (auto) 6.4, Absolute Lymphs (auto) 1.32, Nucleated RBC % 0, Sodium Cancelled, Potassium Cancelled, Chloride Cancelled, Carbon Dioxide Cancelled, Anion Gap Cancelled, BUN Cancelled, Creatinine Cancelled, Estim Creat Clear Calc Cancelled, Est GFR (MDRD) Non-Af Cancelled, BUN/Creatinine Ratio Cancelled, Glucose Cancelled, Calcium Cancelled, Total Bilirubin Cancelled, AST Cancelled, ALT Cancelled, Alkaline Phosphatase Cancelled, Total Protein Cancelled, Albumin Cancelled, Globulin Cancelled, Albumin/Globulin Ratio Cancelled 12/05/24 22:05: Lactic Acid 3.4 H* Imaging Radiology Impression Chest X-Ray 12/05/24 21:20 IMPRESSION: Mild pulmonary vascular congestion. no focal consolidation. Reading Location: [facility] Assessment & Plan Assessment/Plan (1) Acute exacerbation of chronic obstructive pulmonary disease: (2) Acidosis, lactic: PLAN: Plan The patient is a 79 y/o M w/ PMHx: GERD w/ Hx GI bleed, Obesity, Chronic anemia, PAF, Rheumatoid arthritis, Tachy-Craig syndrome s/p pacemaker status, HFpEF, CAD s/p PCI, HTN, HLD, COPD, Former tobacco use who presents to the [facility] ED on 12/05/2024 with history of onset of significantly worsening dyspnea, worse with exertion with wheezing as well as cough, nonproductive in addition to chills starting over the last 48 hours progressively worsening with nasal congestion prompting eventual ED evaluation to be cautious. #1. Acute on Chronic COPD exacerbation with associated tachypnea, low-grade temperature, lactic acidosis with onset of significant rigors witnessed in the ED with concern for SIRS: Will admit to PCU given significant chills, quickly worsened clinical appearance in the ED as well as notable lactic acidosis, blood culture x 2 pending per ED, maintain on oxygen with wean as tolerated to room air if supplementation is necessary, continue ATC duonebs, PRN albuterol, IV methylprednisolone, HOB, IS parameters, will obtain sputum Cx, respiratory viral panel, COVID, procalcitonin, will continue levaquin in the interim however if more consistent with viral syndrome will de-escalate. #2. Thrombocytopenia, suspected reactive: Admission platelets 114, previous normal for the most part upon trending review, will continue to trend CBC, continue evaluation and treatment as noted above #1. #3. HFpEF: Most recent echocardiogram noted 02/17/2023 with EF 50 to 55%, overall normal LV systolic function with no marked reported valvular heart disease. Will continue patient aspirin, Eliquis, statin, metoprolol, not on CHUNG inhibitor/ARB secondary to history of angioedema with lisinopril, continue Lasix however low threshold to hold given acute infectious presentation and potential need for more aggressive IV fluid hydration. #4. CAD: Status post PCI, will continue aspirin, Eliquis, statin, metoprolol regimen, not on CHUNG inhibitor/ARB per current list with noted angioedema reaction to lisinopril. #5. PAF: Will continue patient home metoprolol and apixaban regimen. #6. History of tachybradycardia syndrome: Status post pacemaker placement, encourage continued outpatient interrogation as previously arranged. #7. Hypertension: Continue home regimen including metoprolol, isosorbide, Lasix with hold parameters as needed, PRN hydralazine. #8. Hyperlipidemia: Will continue patient statin therapy. #9. Obesity: Weight loss and lifestyle changes encouraged. #10. GERD with history of GI bleed: Will continue home PPI. #11. Former tobacco use: Encourage continued tobacco cessation. #12. Gout: Will continue patient on allopurinol regimen. #13. DVT prophylaxis: Will continue patient home Eliquis regimen. #14. CODE status: Patient MACIEJ is his son and living will is currently in place. Discussed CODE status at length including difference between FULL code, DNR-CCA and DNR-CC status. Following discussions about the differences in these status, requested Full Code. Advanced Care Planning Face to Face Time: 16 minutes. Charges/Coding Visit Charges Inpatient E&M: 54820 Init Hosp L3 Procedures Hospitalists Procedures: 94488 Advncd Care Plan 30 Min
[2024-12-05] MEDS: levoFLOXacin IV 750 MG/150 ML BAG 100 MG IV (23:31)
[2024-12-06] VITALS (10 sets, daily range): BP systolic 123–147; BP diastolic 58–88; PULSE 60–66; RESP 15–18; TEMP 36.6–37.8; O2SAT 94–97; BMI 32.4; BMI 32.3
[2024-12-06 00:13] LABS: Magnesium 2.0 mg/dL (1.5-2.2)
[2024-12-06 00:14] LABS: AST(SGOT) 28 U/L (<=37); Alanine Aminotransfer ALT/SGPT 15 U/L (<=46); Albumin, Serum 4.0 g/dL (3.4-4.8); Alkaline Phosphatase 92 U/L (40-129); Anion Gap 14 (5-15); BUN 15 mg/dL (4-19); BUN/Creat Ratio 12.4 RATIO (10-20); Calcium,Total 8.9 mg/dL (7.6-11.0); Carbon Dioxide 22.7 mmol/L (21.0-32.0); Chloride 99 mmol/L (98-108); Estimated Creatinine Clearance 73.32 ml/min (50-250); Globulin 3.1 g/dL (2.2-4.2); Glucose 136 mg/dL (70-99); Potassium 3.9 mmol/L (3.3-5.1)
--- NOTE | 2024-12-06 00:25 | PCA ---
[facility] CALLED, CHART FAXED OVER
--- OUTSIDE RECORDS SUMMARY | 2024-12-06 00:35 | XMS RPT_ITS | CCD ---
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 Name Role Phone Clarisse Hunt Primary Care Provider LELE ESPARZA Admitting Unavail able LELE ESPARZA Attending Unavail able CLARISSE HUNT Primary Care Unavailab le Clarisse Hunt Primary Care Provider [phone] Unavailable Primary Care Provider DIANN Babb Primary Care Unavailable DIANN ADAME Attending Unavailable DIANN ADAME Admitting Unavailable NO, DOCTOR ON Consulting Unavailable JESSE WHARTON DO Primary Care Unavailable JESSE WHARTON DO Attending Unavailable JESSE WHARTON DO Admitting Unavailable CLAUDINE MELENDEZ MD Primary Care Unavailable CLAUDINE MELENDEZ MD Attending Unavailable CLAUDINE MELENDEZ MD Admitting Unavailable NO, DOCTOR ON Consulting Unavailable DIANN ADAME Primary Care Unavailable DIANN ADAME Attending Unavailable DIANN ADAME Admitting Unavailable NO, DOCTOR ON Consulting Unavailable NO, DOCTOR ON Consulting Unavailable LARISA OVERTON MD Admitting Unavailabl e LARISA OVERTON MD Primary Care Unavailabl e LARISA OVERTON MD Attending Unavailabl e LARISA OVERTON MD Admitting Unavailabl e LARISA OVERTON MD Primary Care Unavailabl e LARISA OVERTON MD Attending Unavailabl e NO, DOCTOR ON Consulting Unavailable MADRIGAL Primary Care Unavailable MADRIGAL Attending Unavailable MADRIGAL Admitting Unavailable NO, DOCTOR ON Consulting Unavailable NICKY RODRIGUEZ MD Primary Care Unavailable NICKY RODRIGUEZ MD Attending Unavailable NICKY RODRIGUEZ MD Admitting Unavailable NO, DOCTOR ON Consulting Unavailable NO, DOCTOR ON Consulting Unavailable LARISA OVERTON MD Admitting Unavailabl e LARISA OVERTON MD Primary Care Unavailabl e LARISA OVERTON MD Attending Unavailabl LARISA Silvestre MD Primary Care Unavailabl LARISA Silvestre MD Attending UnavailLARISA Story MD Admitting Unavailabl e NO, DOCTOR ON [...] Admitting Unavailable MARIA FERNANDA EVANS Referring Unavailable [facility] [place] Primary Care Provider UnavailDr. Rai Rush Emergency Provider Dr. Ros Patterson Admit Provider Dr. Ros Patterson Attending Provider Dr. Ros Patterson Other Provider Jeremy, Dr. Mathew Other Provider Jeremy, Dr. Mathew Attending Provider Dr. Gee Elena Attending Provider [place], [place] Primary Care Provider UnavailDr. Rai Rush Emergency Provider Dr. Ros Patterson Admit Provider Dr. Ros Patterson Attending Provider Dr. Ros Patterson Other Provider Jeremy, Dr. Mathew Other Provider Jeremy, Dr. Mathew Attending Provider Dr. Gee Elena Attending Provider [place] Referring Provider Unavailable Dr. Emanuel Richardson Attending Provider Destiny Smith Attending Provider Unavailable [facility] Referring [place] Unavailable Destiny Smith Attending Provider Unavailable Roof CLIENT DEVELOPMENT DIRECTOR, CLIENT DEVELOPMENT DIRECTORClovis Thurman Attending Provider Dr. Emanuel Richardson Attending Provider [phone] [facility] [place] [facility] [place] Referring Provider Unavailable Lele Esparza MD Primary Care Provider [facility] Primary Care Provider Unavailabl [facility] Referring Provider Unavailable Destiny Smith Attending Provider Unavailable Dr. Toro Melendez Emergency Provider Dr. Joshua Clay Admit Provider [phone] Dr. Joshua Clay Other Provider Dr. Gee Elena Attending Provider Dr. Gee Elena Other Provider [facility] Primary Care Provider Dr. Joshua Clay Attending Provider Dr. Priyanka Luna Attending Provider Dr. Hugo Romo Referring Provider Dr. Hugo Romo Emergency Provider Dr. Arsen Quan Admit Provider Dr. Arsen Quan Attending Provider Dr. Arsen Quan Other Provider Dr. Pavel Atkins Attending Provider Dr. Pavel Atkins Other Provider Dr. Evan Burns Attending Provider Dr. Evan Burns Other Provider Dr. Anh Salinas Other Provider Dr. Anh Salinas Attending Provider NOHEMI TEJEDA Attending Unavailabl e Chelita Oliveira Referring Unavailable Dr. Emily Dougherty Attending Provider Dr. Arsen Quan Referring Provider Dr. Emanuel Richardson Attending Provider [facility] [place] [facility] [place] Referring Provider Unavailable Luis HUERTA, NICK Whalen Attending Provider [place] Primary Care Provider Unavailabl e Demetrius Dr. Hugo Referring Provider Dr. Hugo Romo Emergency Provider Dr. Arsen Quan Admit Provider Dr. Arsen Quan Attending Provider Dr. Arsen Quan Other Provider Dr. Pavel Atkins Attending Provider Dr. Pavel Atkins Other Provider Dr. Emily Dougherty Attending Provider Dr. Arsen Quan Referring Provider TerDr. Evan prabhakar Attending Provider Dr. Evan Burns Other Provider Koram, Dr. Anh Muller Other Provider Koram, Dr. Anh Muller Attending Provider Dr. Emanuel Richardson Attending Provider [phone] [facility] Referring Provider Unavailable Luis HUERTA, CLIENT DEVELOPMENT DIRECTOR-C Marlee Attending Provider [facility] [place] Primary Care Provider UnavailDr. Emanuel Conde Attending Provider [phone] Pay, Dr. Fong Emergency Provider Dr. Pavel Hogan Attending Provider [phone] [facility] Primary Care Provider [phone] Unavailable Primary Care Provider UnavailSOLO Heller Referring Unavailable [facility] Attending Unavailable SAMUEL CONTRERAS Referring Unavailable LELE ESPARZA Primary Care Unavailable NOHEMI PLEITEZ Attending Unavailable CLARISSE HUNT [place] Provider UnavailDr. Emanuel Conde MD Attending Provider [phone] [facility] Referring Provider Unavailable Lesly HUERTA-Jesse Siddiqi Attending Provider [facility] [place] Primary Care Provider Unavailcarlos Grace NP-C, Jesse H Referring [place] [facility] [place] [facility] Provider Unavailcarlos Richardson MD, Dr. Castellanos Attending Provider Dylan, Byron Attending [facility] Un[facility] Dylan, Byron [facility] [place] [facility] Un[place] Dylan, Emanuel Attending [facility] Unavailable Dylan, Byron Attending [facility] Ref[facility] Unavailable Roof CLIENT DEVELOPMENT DIRECTOR, Jesse H Attending Unavailable Dylan, Emanuel Attending [facility] Unavailable Roof CLIENT DEVELOPMENT DIRECTOR, Jesse H Attending Unavailable Roof CLIENT DEVELOPMENT DIRECTOR, Jesse H Referring [facility] [place] [facility] Referring Unavailable Roof CLIENT DEVELOPMENT DIRECTOR, Jesse H Attending [facility] Unavailable Dylan, Emanuel Attending Unavailable Dylan, Byron Attending [facility] [place] [facility] Unavailable Joaquín ORO, Dr. Killian Emergency Provider Melany ORO, Dr. Radha Ledbetter Admit Provider [phone] Melany ORO, Dr. Radha Ledbetter Attending Provider Allergies Allergy Classification Reported Allergen(s) Allergy Type Date of Onset Reaction(s) Facility (17 sources) Angiotensin Converting Enzyme (Keith) Inhibitors; Translations: [Unknown] Propensity to adverse reactions to drug 6 Anaphylaxis [facility] (15 sources) atorvastatin; Translations: [ATORVASTATIN] Drug Allergy 0 Unknown [facility] (20 sources) Lisinopril; Translations: [LISINOPRIL] Drug Allergy 6 Swelling [facility] (20 sources) Penicillins; Translations: [PENICILLINS] Propensity to adverse reactions to drug 9 Rash [facility] (1 source) atorvastatin Drug Allergy [facility] (1 source) Lisinopril Drug Allergy [facility] (1 source) Penicillin Drug Allergy [facility] (10 sources) Penicillin; Translations: [PENICILLIN] Drug Allergy 6 Rash [facility] (1 source) Lisinopril Drug Allergy 5 [facility] Medications Current Medications Medication Drug Class(es) Dates Sig (Normalized) Sig (Original) acetaminophen 325 mg oral tablet (20 sources) Start: 03-12-2023 take 1 tablet by mouth every six hours as needed for pain Acetaminophen (Tylenol) 325 mg tablet Active 325 mg PO EVERY 6 HOURS as needed for pain March 12, 2023 1:00am Start: 10-27-2022 take 1-2 tablets by mouth four times daily as needed for pain acetaminophen (TYLENOL) 325 mg tablet TAKE ONE TO TWO TABLETS BY MOUTH FOUR TIMES A DAY NEEDED FOR PAIN. 10/27/2022 Active Comment on above: TAKE ONE TO TWO TABL ETS BY MOUTH FOUR TIMES A DAY NEEDED FOR PAIN. [id number] 200 actuat albuterol 0.09 mg/actuat metered dose inhaler (9 sources) beta2-Adrenergic Agonist Start: 05-26-2023 Albuterol Sulfate (Ventolin Hfa) 90 mcg/actuation HFA aerosol inhaler Active 2 NMA INHALATION EVERY 4 HOURS NEEDED as needed for Wheezing 1 May 26, 2023 1:00am Start: 05-26-2023 take 1 puff(s) by in halation every four hours as needed Albuterol Sulfate (Ventolin Hfa) 90 mcg/actuation HFA aerosol inhaler Active 2 PUFF INHALATION EVERY 4 HOURS NEEDED May 26, 2023 1:00am allopurinol 100 mg oral tablet (20 sources) Xanthine Oxidase Inhibitor Start: 08-31-2022 allopurinol (ZYLOPRI M) 100 mg tablet 100 mg once daily. 11/12/2022 Active Start: 04-13-2021 End: 08-31-2022 take 2 tablets by mouth once daily Allopurinol 100 mg tablet Active 200 mg PO DAILY August 31, 2022 10:45am GOUT Start: 04-13-2021 End: 08-31-2022 take 200 mg by mouth once daily Allopurinol Active 200 MG PO DAILY August 31, 2022 10:45am Start: 04-13-2021 take 100 mg by mouth once denton y Allopurinol Active 100 MG PO DAILY April 13, 2021 11:43am Comment on above: 200 mg. 100 mg once daily. amLODIPine 5 mg / benazepril hydrochloride 10 mg oral capsule (12 sources) Dihydropyridine Calcium Channel Rufino, Angiotensin Converting Enzyme Inhibitor take 1 capsule by mouth once amLODIPine-benaze pril (LOTREL) 5-10 mg per capsule Take 1 capsule by mouth. Active take 1 capsule by mouth once kyaw ly amLODIPine-benazepril (Lotrel) 5-10 mg per capsule Take 1 capsule by mouth daily Take 10mg daily . 0 Active Comment on above: Take 1 capsule by mo [facility]. ascorbic acid 4700 mg / polyethylene glycol 3350 [id number] mg / potassium chloride 1015 mg / sodium ascorbate 5900 mg / sodium chloride 2690 mg / sodium sulfate 7500 mg powder for oral solution (8 sources) Osmotic Laxative, Vitamin C Start: 3 PEG 3350-Electrolyte- Vit C (MOVIPREP) 100-7.5-2.691 gram Take by mouth one time only. Will take for colon prep 11/22/2022 Active Comment on above: Take by mouth one ti me only. Will take for colon prep aspirin 81 mg chewable tablet (20 sources) Platelet Aggregation Inhibitor, Nonsteroidal Anti-inflammatory Drug Start: 3 take 1 tablet by mouth once daily Aspirin 81 mg tablet,chewable Active 81 mg PO DAILY 30 2 March 15, 2023 1:00am Start: 08-31-2022 End: 03-15-2023 Aspirin (Adult Low Dose Aspi rin) 81 mg tablet,delayed release (DR/EC) Discontinued 81 mg PO DAILY August 31, 2022 12:00am March 15, 2023 1:38pm [employer] Start: 08-09-2017 End: 02-23-2022 take 1 tablet by mouth at breakfast Aspirin 81 mg Tablet,Delayed Release (Dr/Ec) Discontinued 81 mg PO WITH BREAKFAST February 06, 2022 12:00am February 23, 2022 11:43am Comment on above: Take 81 mg by mouth once daily. atorvastatin 40 mg oral tabl et (8 sources) HMG-CoA Reductase Inhibitor Start: 017 take 1 tablet by mouth once daily atorvastatin (LIPITOR) 40 mg tablet Take 1 tablet by mouth once daily. 90 tablet 3 11/29/2016 Active Comment on above: [facility]. carboxymethylcellulose sodiu m 5 mg/ml / glycerin 9 mg/ml ophthalmic solution (12 sources) Non-Standardized Chemical Allergen Carboxymethylcellul ose-Glycern (OPTIVE) 0.5-0.9 % drop Use in eyes. Active take 1 drop(s) into the eye(s) four times daily, then take 0.5-0.9 drop(s) into the eye(s) carboxymethylcellulose-glycern 0.5-0.9 % Drop Apply to eye Drop in each eye four times daily . 0 Active Comment on above: Use in eyes. cholecalciferol 0.05 mg oral tablet (20 sources) Vitamin D Start: take 1 tablet by mouth once daily cholecalciferol (VITAMIN D3) 50 mcg (2,000 unit) tablet Take 1 tablet by mouth once daily. 04/13/2021 Active Start: 04-13-2021 take 1 tablet by berna once daily Cholecalciferol (Vitamin D3) 50 mcg (2,000 unit) Tablet Active 50 ug PO DAILY April 13, 2021 1:00am SUPPLEMENT take 1 tablet by berna once daily cholecalciferol, vitamin D3, 2,000 unit Tab Take 2,000 Units by mouth daily . 0 Active Comment on above: Take 1 tablet by berna once daily. colchicine 0.6 mg oral tablet (20 sources) Start: 02-04-2022 colchicine 0.6 mg tablet Take by mouth. 02/04/2022 Active Start: 02-04-2022 take 2 tablets by mo [facility] once daily as needed Colchicine 0.6 mg tablet Active 1.2 mg PO DAILY as needed for gout February 04, 2022 12:00am Start: 02-04-2022 take 1.2 mg by mouth once denton y Colchicine Active 1.2 MG PO DAILY February 04, 2022 12:00am Start: 02-04-2022 take 2 tablets by mo [facility] once as needed, then take 1 tablet by mouth every hour as needed Colchicine (Gout) Active 1.2 MG PO NEEDED February 04, 2022 12:00am Take two 0.6 tabs one time, then take one tablet one hour later for acute fare up Comment on above: Take by mouth. cyclobenzaprine hydrochloride 10 mg oral tablet (12 sources) Muscle Relaxant cyclobenzaprine (FLEXERIL) 10 mg tablet Take 10 mg by mouth. Active Comment on above: Take 10 mg by mouth. diclofenac sodium 0.01 mg/mg topical gel (12 sources) Nonsteroidal Anti-inflammatory Drug diclofenac sodium (VOLTAREN) 1 % topical gel Apply to affected area. Active diclofenac sodiu m 1 % Gel Apply topically appy 2gm externally three times a day. . 0 Active Comment on above: Apply to affected ar ea. ferrous sulfate 325 mg oral tablet (12 sources) ferrous sulfate 325 mg (65 mg iron) tablet Take 325 mg by mouth. Active Comment on above: Take 325 mg by mouth . Fluticasone Propion-Salmeterol (6 sources) Corticosteroid, beta2-Adrenergic Agonist Start: 07-29-2023 Fluticasone Propion-Salmeterol (Wixela Inhub) 100-50 mcg/dose blister with device Active 1 NMA INHALATION TWICE A DAY July 29, 2023 12:00am Start: 07-29-2023 Fluticasone Pr opion-Salmeterol (Wixela Inhub) 100-50 mcg/dose blister with device Active 1 INH INHALATION TWICE A DAY July 29, 2023 12:00am fluticasone prp-sod.chl,bica rb 50 mcg- 0.9 % ksps (8 sources) fluticasone prp- sod.chl,bicarb 50 mcg- 0.9 % ksps Use 50 mcg in the nose once daily. Active fluticasone prp- sod.chl,bicarb 50 mcg- 0.9 % ksps Use 50 mcg in the nose once daily. 0 Active Comment on above: Use 50 mcg in the no se once daily. folic acid 1 mg oral tablet (20 sources) Start: 02-04-2022 take 2 tablets by mouth once daily Folic Acid 1 mg tablet Active 2 mg PO DAILY February 04, 2022 12:00am SUPPLEMENT Start: 02-04-2022 take 2 mg by mouth once daily Folic Acid Active 2 MG PO DAILY February 04, 2022 12:00am Start: 02-04-2022 take 1 mg by mouth twice daily Folic Acid Active 1 MG PO TWICE A DAY February 03, 2022 11:00pm Comment on above: Take 2 tablets by mo [facility] once daily. furosemide 40 mg oral tablet (20 sources) Loop Diuretic Start: 07-29-2023 take 1 tablet by mouth once daily Furosemide (Lasix) 40 mg tablet Active 40 mg PO DAILY July 29, 2023 12:00am Start: 04-13-2021 End: 04-07-2023 take 1 tablet by mouth once daily Furosemide 40 mg tablet Discontinued 40 mg PO DAILY 90 3 May 14, 2022 10:03am April 07, 2023 10:02am FLUID Start: 03-20-2018 End: 04-06-2018 take 1 tablet by mouth once daily Furosemide 20 MG tablet Discontinued 20 mg PO DAILY 30 0 March 20, 2018 1:00am April 06, 2018 10:53am Start: 02-25-2018 End: 04-06-2018 take 1 tablet by mouth once daily Furosemide 40 MG tablet Discontinued 40 mg PO DAILY 10 February 25, 2018 1:00am April 06, 2018 10:53am Start: 08-09-2017 End: 11-23-2017 take 1 tablet by mouth once daily Furosemide 40 MG tablet Discontinued 40 mg PO DAILY 30 August 09, 2017 12:00am November 23, 2017 1:59pm Comment on above: Take 40 mg by mouth. gabapentin 300 mg oral capsule (20 sources) Anti-epileptic Agent Start: 12-04-2024 take 1 capsule by mouth three times daily Gabapentin 300 mg capsule Active 300 mg PO THREE TIMES A DAY December 04, 2024 12:00am Start: 08-31-2022 End: 12-04-2024 take 1 capsule by mouth three times daily Gabapentin 100 mg capsule Discontinued 100 mg PO THREE TIMES A DAY August 31, 2022 12:00am December 04, 2024 1:05pm NEUROPATHY Start: 08-31-2022 take 100 mg by mouth twice daily Gabapentin Active 100 MG PO TWICE A DAY August 30, 2022 11:00pm Comment on above: Take 100 mg by mouth two times a day. hydrALAZINE hydrochloride 50 mg oral tablet (14 sources) Arteriolar Vasodilator Start: 2 take 50 mg by mouth three times daily Hydralazine Active 50 MG PO THREE TIMES A DAY April 13, 2021 11:43am hydrALAZINE (APR ESOLINE) 10 mg tablet Take 10 mg by mouth. Active take 2 tablets by mo uth three times daily hydrALAZINE (APRESOLINE) 10 MG tablet Ta ke 10 mg by mouth 3 (three) times a day Take 2 tablets three times daily . 0 Active Comment on above: Take 10 mg by mouth. 24 hr isosorbide mononitrate 30 mg extended release oral tablet (20 sources) Nitrate Vasodilator Start: 4 take 1 tablet by mouth once daily in the morning, then take 1 tablet by mouth every twenty-four hours Isosorbide Mononitrate 30 mg tablet extended release 24 hr Active 30 mg PO DAILY 30 0 July 16, 2023 12:00am TAKE IN AM Start: 02-06-2022 End: 02-23-2022 take 1 tablet by mouth once daily, then take 1 tablet by mouth every twenty-four hours Isosorbide Mononitrate 30 mg Tablet Extended Release 24 Hr Discontinued 30 mg PO DAILY 30 30 0 February 06, 2022 12:00am February 23, 2022 11:31am isosorbide dinitrate 30 mg oral tablet (8 sources) Nitrate Vasodilator Start: 02-11-2022 take 1 tablet by mouth three times daily isosorbide dinitrate (ISORDIL) 30 mg tablet Take 1 tablet by mouth three times daily. 02/11/2022 Active Comment on above: Take 1 tablet by berna th three times daily. lidocaine 0.05 mg/mg medicated patch (14 sources) Antiarrhythmic, Amide Local Anesthetic Start: 12-04-2024 Lidocaine 5 % adhesive patch,medicated Active 2 NMA TOPICAL daily December 04, 2024 12:00am leave on most painful area for up to 12 hrs Start: 03-12-2023 End: 07-29-2023 Lidocaine 5 % adhesive patch ,medicated Discontinued 2 NMA TOPICAL DAILY March 12, 2023 1:00am July 29, 2023 9:31am pain leave on most painful area for up to 12 hrs loratadine 10 mg oral tablet (8 sources) loratadine (CLARITIN) 10 mg tablet Take 10 mg by mouth as needed. Active Comment on above: Take 10 mg by mouth as needed. 24 hr metoprolol succinate 50 mg extended release oral tablet (20 sources) beta-Adrenergic Rufino Start: 07-29-2023 take 1 tablet by mouth twice daily Metoprolol Succinate 50 mg tablet extended release 24 hr Active 50 mg PO TWICE A DAY July 29, 2023 9:29am Start: 04-25-2023 End: 07-29-2023 Metoprolol Succinate 50 mg t ablet extended release 24 hr Discontinued 75 mg PO TWICE A DAY 90 April 25, 2023 1:00am July 29, 2023 9:32am Start: 04-07-2023 End: 04-25-2023 take 1 tablet by mouth twice daily Metoprolol Succinate 100 mg tablet extended release 24 hr Discontinued 100 mg PO TWICE A DAY 60 April 07, 2023 10:18am April 25, 2023 12:53pm BLOOD PRESSURE Start: 05-27-2022 End: 07-29-2023 take 1 tablet by mouth twice daily metoprolol succinate ER (TOPROL XL) 50 mg 24 hr tablet Take 1 tablet by mouth twice daily. 05/27/2022 Active Start: 02-23-2022 End: 04-07-2023 take 1 tablet by mouth twice daily Metoprolol Succinate 50 mg tablet extended release 24 hr Discontinued 50 mg PO TWICE A DAY 180 May 27, 2022 12:34pm April 07, 2023 10:19am BLOOD PRESSURE Start: 02-23-2022 End: 02-23-2022 take 1 tablet by mouth once daily Metoprolol Succinate 50 mg tablet extended release 24 hr Discontinued 50 mg PO DAILY February 23, 2022 1:00am February 23, 2022 11:33am Start: 02-06-2022 End: 02-23-2022 take 1 capsule by mouth once daily Metoprolol Succinate 50 mg capsule,sprinkle,ER 24hr Discontinued 50 mg PO DAILY 30 February 06, 2022 12:00am February 23, 2022 11:01am Start: 05-30-2018 take 25 mg by mouth once daily Metoprolol Succinate Active 25 MG PO DAILY May 30, 2018 4:27pm Start: 08-09-2017 End: 05-30-2018 take 1 tablet by mouth twice daily Metoprolol Tartrate 25 MG tablet Discontinued 25 mg PO TWICE A DAY 60 August 09, 2017 12:00am May 30, 2018 4:27pm Start this medication on 08/13/2017 Start: 09-02-2014 End: 12-22-2022 take 1 tablet by mouth twice daily Metoprolol Tartrate 50 MG tablet Discontinued 50 mg PO TWICE A DAY 1 September 02, 2014 12:00am August 09, 2017 1:09pm Start: 08-30-2014 End: 09-02-2014 take 1 tablet by mouth twice daily Metoprolol Tartrate 100 MG tablet Discontinued 100 mg PO TWICE A DAY August 30, 2014 12:00am September 02, 2014 12:48pm Comment on above: Take 1 tablet by berna twice daily. Take 50 mg by mouth twice daily. multivitamin (multivitamin) per tablet (4 sources) take 1 tablet by mouth twice daily multivitamin (multivitamin) per tablet Take 1 tablet by mouth 2 (two) times a day . 0 Active MULTIVITAMIN ORAL (8 sources) Start: 09-29-2022 take 1 capsule by mouth twice daily MULTIVITAMIN ORAL TAKE 1 CAPSULE BY MOUTH TWICE A DAY FOR MACULAR DEGENERATION 09/29/2022 Active Start: 09-29-2022 take 1 capsule by [facility] twice daily MULTIVITAMIN ORAL TAKE 1 CAPSULE BY MOUTH TWICE A DAY FOR MACULAR DEGENERATION 0 09/29/2022 Active Comment on above: TAKE 1 CAPSULE BY [facility] TWICE A DAY FOR MACULAR DEGENERATION naproxen 500 mg oral tablet (2 sources) Nonsteroidal Anti-inflammatory Drug Start: End: take 1 tablet by mouth twice daily as needed for pain naproxen (NAPROSYN) 500 MG tablet Take 1 tablet by mouth 2 times daily as needed for Pain 60 tablet 0 11/27/2020 11/27/2020 Discontinued (REORDER) Sodium Chloride (8 sources) SODIUM CHLORIDE OPHTHALMIC Use in eyes. Active SODIUM CHLORIDE OPHTHALMIC Use in eyes. 0 Active Comment on above: Use in eyes. sodium chloride flush 0.9 % injection 3 mL (1 source) Start: 11-26-2020 sodium chloride flush 0.9 % injection 3 mL Vit C,D-Jo-Ktpqh-Lutein-Z eaxan (Preservision Areds-2) 250-90-40-1 mg capsule (2 sources) Start: 12-04-2024 take 2 capsules by mouth twice daily Vit C,B-Jf-Ugihy-Lutein- Zeaxan (Preservision Areds-2) 250-90-40-1 mg capsule Active 1 {tbl} PO TWICE A DAY December 04, 2024 12:00am Completed/Discontinued Medications Medication Drug Class(es) Dates Sig (Normalized) Sig (Original) amLODIPine 10 mg oral tablet (20 sources) Dihydropyridine Calcium Channel Rufino Start: 04-13-2021 End: 02-23-2022 take 1 tablet by mouth once daily Amlodipine 10 mg Tablet Discontinued 10 mg PO DAILY April 13, 2021 1:00am February 23, 2022 11:31am apixaban 5 mg oral tablet (20 sources) Factor Xa Inhibitor Start: 08-08-2017 End: 05-14-2022 take 1 tablet by mouth twice daily Apixaban 5 mg tablet Discontinued 5 mg PO TWICE A DAY 90 3 May 14, 2022 9:59am May 14, 2022 10:03am blood [facility] take 1 tablet by berna th every twelve hours apixaban (ELIQUIS) 5 mg Tab Take 5 mg by mouth daily One tablet every 12 hours . 0 Active Comment on above: Take 5 mg by mouth t wice daily. benzonatate 100 mg oral capsule (16 sources) Non-narcotic Antitussive Start: End: take 2 capsules by mouth three times daily as needed for cough Benzonatate 100 mg capsule Discontinued 200 mg PO THREE TIMES A DAY as needed for cough 20 0 July 16, 2023 11:31am July 29, 2023 9:55am Start: 07-16-2023 End: 07-29-2023 take 200 mg by mouth three times daily Benzonatate Discontinued 200 MG PO THREE TIMES A DAY 20 July 16, 2023 11:31am July 29, 2023 9:55am Start: 05-26-2023 End: 07-29-2023 take 1 capsule by mouth three times daily as needed for cough Benzonatate 200 mg capsule Discontinued 200 mg PO THREE TIMES A DAY as needed for cough 14 0 May 26, 2023 1:00am July 29, 2023 9:31am brompheniramine maleate 0.4 mg/ml / dextromethorphan hydrobromide 2 mg/ml / pseudoephedrine hydrochloride 6 mg/ml oral solution (7 sources) alpha-Adrenergic Agonist, Uncompetitive C-pdavid-Y-aspartate Receptor Antagonist, Sigma-1 Agonist Start: 07-16-2023 End: 11-16-2023 take 1 mL by mouth every six hours as needed Aibodvqlbuydfbe-Nmredxakc-St (Bromfed Dm) 2-30-10 mg/5 mL syrup Discontinued 10 mL PO EVERY 6 HOURS as needed for sinus symptoms 200 0 July 16, 2023 12:00am November 16, 2023 8:47am Start: 07-16-2023 take 1 mL by mouth every six hours Jushoglqhllysee-Klhdmrpgv-Np (Bromfed Dm ) 2-30-10 mg/5 mL syrup Active 10 ML PO EVERY 6 HOURS July 16, 2023 12:00am calcium chloride 0.0014 meq/ml / potassium chloride 0.004 meq/ml / sodium chloride 0.103 meq/ml / sodium lactate 0.028 meq/ml injectable solution (1 source) Start: 06-11-2019 End: 06-11-2019 lactated Ringers infusion clopidogrel 75 mg oral tablet (20 sources) [id number] Platelet Inhibitor Start: 04-13-2021 End: 08-31-2022 take 1 tablet by mouth once daily Clopidogrel 75 mg tablet Discontinued 75 mg PO DAILY 90 3 May 14, 2022 10:03am August 31, 2022 11:31am doxazosin 1 mg oral tablet (20 sources) alpha-Adrenerg ic Rufino Start: 02-04-2022 End: 05-14-2022 take 1 tablet by mouth once daily Doxazosin 1 mg tablet Discontinued 1 mg PO DAILY 90 3 May 14, 2022 9:59am May 14, 2022 10:03am [place]ax to [place] Comment on above: Take 1 tablet by berna th every morning. ezetimibe 10 mg oral tablet (20 sources) Dietary Cholesterol Absorption Inhibitor Start: 04-13-2021 End: 02-23-2022 take 1 tablet by mouth once daily Ezetimibe 10 mg Tablet Discontinued 10 mg PO DAILY April 13, 2021 1:00am February 23, 2022 11:31am ferrous gluconate 324 mg oral tablet (20 sources) Start: 02-04-2022 End: 12-05-2024 take 1 tablet by mouth once daily Ferrous Gluconate 324 mg (36 mg iron) Tablet Discontinued 324 mg PO DAILY February 04, 2022 12:00am December 05, 2024 10:32pm SUPPLEMENT Comment on above: Take 324 mg by mouth once daily. 12 hr guaiFENesin 1200 mg extended release oral tablet (9 sources) Start: 05-26-2023 End: 12-05-2024 take 1 tablet by mouth twice daily as needed for congestion, then take 1 tablet by mouth every twelve hours as needed for congestion Guaifenesin (Mucinex) 1,200 mg tablet extended release 12hr Discontinued 1200 mg PO TWICE A DAY as needed for congestion 10 0 May 26, 2023 4:48pm December 05, 2024 10:32pm hydroCHLOROthiazide 25 mg oral tablet (20 sources) Thiazide Diuretic Start: 08-30-2014 End: 09-02-2014 Hydrochlorothiazide 25 MG tablet Discontinued 12.5 mg PO DAILY August 30, 2014 12:00am September 02, 2014 12:49pm Start: 08-30-2014 End: 09-02-2014 take 12.5 mg by mouth once daily Hydrochlorothiazide Discontinued 12.5 MG PO DAILY August 30, 2014 12:00am September 02, 2014 12:49pm lansoprazole 30 mg delayed release oral capsule (20 sources) Proton Pump Inhibitor Start: 02-25-2018 End: 06-14-2018 take 1 capsule by mouth once daily Lansoprazole 30 MG capsule Discontinued 30 mg PO DAILY 30 February 25, 2018 1:00am June 14, 2018 9:53am methotrexate 2.5 mg oral tablet (20 sources) Folate Analog Metabolic Inhibitor Start: 07-29-2023 End: 11-16-2023 take 1 tablet by mouth every week Methotrexate Sodium 2.5 mg tablet Discontinued 2.5 mg PO EVERY WEEK July 29, 2023 12:00am November 16, 2023 8:48am Start: 02-04-2022 End: 04-07-2023 Methotrexate Sodium 2.5 mg T ablet Discontinued 15 mg PO February 04, 2022 12:00am April 07, 2023 10:02am arthritis Start: 02-04-2022 End: 04-07-2023 Methotrexate Sodium Disconti nued 15 MG PO February 04, 2022 12:00am April 07, 2023 10:02am Start: 02-04-2022 take 2.5 mg by mouth every week Methotrexate Sodium Active 2.5 MG PO EVERY WEEK February 04, 2022 12:00am takes on saturdays Start: 02-04-2022 take 2.5 mg by mouth once daily Methotrexate Sodium Active 2.5 MG PO DAILY February 04, 2022 12:00am Comment on above: 15 mg. NIFEdipine 60 mg osmotic 24 hr extended release oral tablet (20 sources) Dihydropyridine Calcium Channel Rufino Start: 08-10-19 End: 06-15-19 19 take 1 tablet by mouth once daily Nifedipine 60 MG tablet Discontinued 60 mg PO DAILY 0 August 09, 2017 12:00am June 14, 2018 9:52am Start: 08-30-2014 End: 08-09-2017 take 1 tablet by mouth twice daily Nifedipine 60 MG tablet Discontinued 60 mg PO TWICE A DAY 14 0 September 02, 2014 12:49pm August 09, 2017 1:09pm Comment on above: Take 60 mg by mouth twice daily. omeprazole 20 mg delayed release oral capsule (20 sources) Proton Pump Inhibitor Start: 7 End: 8 take 1 capsule by mouth once daily Omeprazole 20 MG capsule Discontinued 20 mg PO DAILY September 10, 2016 12:00am November 23, 2017 2:00pm acid reflux Comment on above: Take 20 mg by mouth daily before breakfast. pantoprazole 40 mg delayed release oral tablet (20 sources) Proton Pump Inhibitor Start: 9 End: 3 take 1 tablet by mouth once daily Pantoprazole 40 mg tablet,delayed release (DR/EC) Discontinued 40 mg PO DAILY 180 May 14, 2022 10:00am May 14, 2022 10:03am FAX TO [place] Comment on above: Take 40 mg by mouth. potassium chloride 10 meq extended release oral tablet (20 sources) Start: 3 End: 4 take 1 tablet by mouth once daily Potassium Chloride 10 mEq tablet extended release Discontinued 10 meq PO DAILY 30 September 02, 2022 4:37pm April 07, 2023 10:02am hypokalemia Start: 06-14-2018 End: 02-23-2022 take 1 tablet by mouth once daily Potassium Chloride 10 mEq tablet extended release Discontinued 10 meq PO DAILY June 14, 2018 12:00am February 23, 2022 11:31am potassium chlori de ER (K-DUR, KLOR-CON) 10 mEq tablet Take 10 mEq by mouth. Active Comment on above: Take 10 mEq by mouth . predniSONE 10 mg oral tablet (20 sources) Start: 02-04-2022 End: 04-07-2023 take 1 tablet by mouth once daily as needed for pain Prednisone 10 mg tablet Discontinued 10 mg PO DAILY as needed for pain August 31, 2022 10:45am April 07, 2023 10:02am Start: 11-27-2020 End: 12-02-2020 take 5 tablets by mouth once daily predniSONE (DELTASONE) 10 MG tablet Take 5 tablets by mouth daily for 5 days 25 tablet 0 11/27/2020 11/27/2020 Discontinued (REORDER) Comment on above: 10 mg. 10 mg as needed. rosuvastatin calcium 20 mg oral tablet (20 sources) HMG-CoA Reductase Inhibitor Start: 2 End: 3 take 1 tablet by mouth once daily Rosuvastatin 20 mg tablet Discontinued 20 mg PO DAILY 90 3 May 14, 2022 10:00am May 14, 2022 10:03am FAX to [place] Comment on above: Take 20 mg by mouth once daily. Problems Active Problems Problem Classification Problem Date Documented Da te Episodic/Chronic Acute bronchitis (7 sources) Respiratory syncytial virus bronchitis; Translations: [Acute bronchitis due to respiratory syncytial virus] 07-16-2023 Episodic Acute myocardial infarction (20 sources) Myocardial infarction; Translations: [Non-ST elevation (NSTEMI) myocardial infarction] Onset: 2 Chronic Cardiac dysrhythmias (20 sources) Unspecified atrial fibrillation; Translations: [Multiple premature ventricular complexes] Onset: 7 Chronic Cardiac dysrhythmias (20 sources) Tachycardia; Translations: [Tachycardia, unspecified] Episodic Chronic obstructive pulmonary disease and bronchiectasis (9 sources) Acute exacerbation of chronic obstructive airways disease; Translations: [Chronic obstructive pulmonary disease with (acute) exacerbation] 07-16-2023 Chronic Conditions associated with dizziness or vertigo (20 sources) Lightheadedness; Translations: [Dizziness and giddiness] 11-19-2017 Episodic Conduction disorders (20 sources) H/O: cardiac pacemaker in situ; Translations: [Presence of cardiac pacemaker] Onset: 1 02-22-2022 Chronic Congestive heart failure; nonhypertensive (20 sources) Chronic diastolic heart failure; Translations: [Chronic diastolic (congestive) heart failure] Onset: 2 Chronic Coronary atherosclerosis and other heart disease (20 sources) 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; Translations: [Preinfarction syndrome] Onset: 7 Chronic Deficiency and other anemia (7 sources) Iron deficiency anemia due to blood loss; Translations: [Iron deficiency anemia secondary to blood loss (chronic)] Onset: 0 02-14-2023 Chronic Deficiency and other anemia (1 source) Iron deficiency anemia secondary to blood loss (chronic); Translations: [Iron deficiency anemia due to chronic blood loss] Onset: 3 Chronic Deficiency and other anemia (20 sources) Anemia; Translations: [Anemia, unspecified] 03-12-2023 Episodic Deficiency and other anemia (6 sources) Iron deficiency anemia due to blood loss; Translations: [Iron deficiency anemia due to chronic blood loss] Onset: 0 05-10-2019 Disorders of lipid metabolism (20 sources) Mixed hyperlipidemia; Translations: [Mixed hyperlipidemia] Onset: 6 02-23-2022 Chronic Esophageal disorders (10 sources) Gastroesophageal reflux disease without esophagitis; Translations: [Gastro-esophageal reflux disease without esophagitis] Onset: 6 11-28-2015 Chronic Essential hypertension (20 sources) Essential (primary) hypertension; Translations: [Hypertensive disorder] Onset: 6 Chronic Fluid and electrolyte disorders (9 sources) Hypokalemia; Translations: [Hypokalemia] Onset: 3 02-14-2023 Episodic Gastrointestinal hemorrhage (17 sources) Acute gastrointestinal hemorrhage; Translations: [Gastrointestinal hemorrhage, unspecified] 03-12-2023 Episodic Gout and other crystal arthropathies (1 source) Gout, unspecified; Translations: [Gout, unspecified] Onset: 1 Chronic Hypertension with complications and secondary hypertension (1 source) Hypertensive heart disease with heart failure; Translations: [Hypertensive heart disease with heart failure] Onset: 5 Chronic Nonspecific chest pain (19 sources) Chest pain; Translations: [Chest pain, unspecified] Episodic Osteoarthritis (1 source) Unspecified osteoarthritis, unspecified site; Translations: [Unspecified osteoarthritis, unspecified site] Onset: 1 Chronic Other aftercare (2 sources) 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; Translations: [Long-term (current) use of anticoagulants] Onset: 1 03-15-2023 Episodic Other aftercare (12 sources) Drug therapy finding; Translations: [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] 12-22-2022 Episodic Other aftercare (20 sources) Long-term current use of anticoagulant; Translations: [jail (current) use of anticoagulants] Onset: 7 05-31-2016 Episodic Other and unspecified benign neoplasm (1 [...] polyps; Translations: [History of colonic polyps] Onset: Episodic Other connective tissue disease (1 source) Hand pain; Translations: [Pain in unspecified hand] Episodic Other hematologic conditions (20 sources) High troponin I level; Translations: [Other specified abnormalities of plasma proteins] 11-19-2017 Episodic Other hematologic conditions (2 sources) Raised cardiac enzyme or marker; Translations: [Other specified abnormalities of plasma proteins] Episodic Other hematologic conditions (2 sources) Other specified abnormalities of plasma proteins; Translations: [Other abnormal blood chemistry] Episodic Other lower respiratory disease (20 sources) Dyspnea; Translations: [Dyspnea, unspecified] Episodic Other lower respiratory disease (9 sources) Cough; Translations: [Cough] 05-26-2023 Episodic Other non-traumatic joint disorders (20 sources) Multiple joint pain; Translations: [Pain in unspecified joint] 04-21-2021 Episodic Other nutritional; endocrine; and metabolic disorders (18 sources) Obesity; Translations: [Obesity, unspecified] 02-22-2022 Chronic Other nutritional; endocrine; and metabolic disorders (9 sources) Obesity caused by energy imbalance; Translations: [Other obesity due to excess calories] Onset: 7 05-31-2016 Chronic Other screening for suspected conditions (not mental disorders or infectious disease) (20 sources) Electrocardiogram abnormal; Translations: [Abnormal electrocardiogram [ECG] [EKG]] 02-22-2022 Episodic Other upper respiratory disease (2 sources) Acute bronchospasm; Translations: [Acute bronchospasm] 12-05-2024 Episodic Residual codes; unclassified (7 sources) Family history of cancer of colon; Translations: [Family history of malignant neoplasm of digestive organs] Onset: 0 05-10-2019 Episodic Residual codes; unclassified (18 sources) Edema; Translations: [Edema, unspecified] 02-23-2022 Episodic Residual codes; unclassified (12 sources) History of colonoscopy; Translations: [Other specified postprocedural states] 03-12-2023 Episodic Residual codes; unclassified (1 source) Other specified postprocedural states; Translations: [Other postprocedural status] 03-15-2023 Episodic Residual codes; unclassified (1 source) Family history of malignant neoplasm of digestive organs; Translations: [Family history of colon cancer] Onset: 3 Episodic Residual codes; unclassified (2 sources) Rigor; Translations: [Other general symptoms and signs] 12-05-2024 Episodic Rheumatoid arthritis and related disease (7 sources) Rheumatoid arthritis; Translations: [Rheumatoid arthritis, unspecified] Onset: 3 02-14-2023 Chronic Spondylosis; intervertebral disc disorders; other back problems (7 sources) Lumbar spondylosis; Translations: [Other spondylosis, lumbar region] Onset: 3 02-14-2023 Chronic Spondylosis; intervertebral disc disorders; other back problems (20 sources) Dorsalgia, unspecified; Translations: [Sciatica] Onset: 1 12-03-2017 Episodic Superficial injury; contusion (20 sources) Right lower leg contusion; Translations: [Contusion of right lower leg, initial encounter] 11-14-2017 Episodic Syncope (20 sources) Near syncope; Translations: [Syncope and collapse] 02-22-2022 Episodic Unclassified (1 source) OPENED IN ERROR 02-14-2023 Viral infection (19 sources) Disease caused by 2019-nCoV; Translations: [COVID-19] 02-09-2023 Episodic Past or Other Problems Problem Classification Problem Date Documented Da te Episodic/Chronic Allergic reactions (2 sources) Allergy status to penicillin; Translations: [Allergy status to other drugs, medicaments and biological substances status] Onset: 11-26-2020 Episodic Coronary atherosclerosis and other heart disease (7 sources) Coronary angioplasty status; Translations: [Presence of coronary angioplasty implant and graft] Onset: 09-22-2020 02-23-2022 Episodic Deficiency and other anemia (2 sources) Anemia, unspecified; Translations: [Anemia, unspecified] Onset: 09-03-2024 03-15-2023 Episodic Other connective tissue disease (1 source) Olecranon bursitis, left elbow; Translations: [Olecranon bursitis, left elbow] Onset: 03-08-2021 Episodic Other connective tissue disease (1 source) Pain in left arm; Translations: [Pain in left arm] Onset: 03-08-2021 Episodic Other connective tissue disease (1 source) Other synovitis and tenosynovitis, right hand; Translations: [Other synovitis and tenosynovitis, right hand] Onset: 11-26-2020 Episodic Other lower respiratory disease (1 source) Shortness of breath; Translations: [Shortness of breath] Onset: 09-03-2024 Episodic Other non-traumatic joint disorders (2 sources) [...] of right upper limb] Onset: 11-26-2020 Episodic Results Test Name Value Interpretation Reference Range Facility Absolute lymphocyte countOrd ered By: Constantin Yanes on 12-05-2024 Lymphocytes Auto (Unsp spec) [#/Vol] 1.32 10*3/uL 0.83-4.51 [facility] Absolute neutrophil countOrd ered By: Constantin Yanes on 12-05-2024 Neutrophils (Bld) [#/Vol] 6.4 10*3/uL 2.0-7.7 [facility] Automated lymphocyte count a s percentage of total leukocytesOrdered By: Constantin Yanes on 12-05-2024 Lymphocytes/100 WBC Auto (Unsp spec) 14.7 % Low 19-41 [facility] Basophil percentageOrdered B y: Constantin Yanes on 12-05-2024 Basophils/100 WBC (Bld) 0.8 % 0-1 [facility] Eosinophil percentageOrdered By: Constantin Rojaso on 12-05-2024 Eosinophils/100 WBC (Bld) 1.9 % 0-5 [facility] Erythrocyte distribution wid th ratioOrdered By: Constantinelo Yanes on 12-05-2024 Erythrocyte distribution width (RBC) [Ratio] 13.5 % 11.6-14.6 [facility] Erythrocyte distribution wid th standard deviationOrdered By: Constantinelo Yanes on 12-05-2024 Erythrocyte distribution width (RBC) [Ratio] 45.3 fl High 35.1-43.9 [facility] Hematocrit Auto (Bld) [Volum e fraction]Ordered By: Constantinelo Yanes on 12-05-2024 Hematocrit (Bld) [Volume fraction] 39.0 % Low 40-54 [facility] Hemoglobin measurementOrdere d By: Constantinelo Yanes on 12-05-2024 Hemoglobin (Bld) [Mass/Vol] 13.2 g/dL 13.0-16.5 [facility] Immature granulocytes/100 WB C Auto (Bld)Ordered By: Constantinelo Yanes on 12-05-2024 Immature granulocytes/100 WBC (Bld) 1.000 % High 0.0-0.9 [facility] Comment on above: IG% - Immature Granu locytes (promyelocytes, myelocytes and metamyelocytes) > 1% indicates that a LEFT SHIFT is Present. Lactic acid measurementOrder ed By: Constantinelo Yanes on 12-05-2024 Lactate [Moles/Vol] 3.4 mmol/L High 0.0-2.0 [facility] Comment on above: Critical Result(s) C alled at: [id number] by: ENEDINA BRADY TO ALVARO LEWIS Results read back by same. MCV (mean corpuscular volume ) determinationOrdered By: Constantinelo Yanes on 12-05-2024 MCV (RBC) [Entitic vol] 90.1 fL 80-94 [facility] Mean corpuscular hemoglobin (MCH) determinationOrdered By: Constantinelo Yanes on 12-05-2024 MCH (RBC) [Entitic mass] 30.5 pg 27.0-32.0 [facility] Mean corpuscular hemoglobin concentration (MCHC) determinationOrdered By: Constantinelo Yanes on 12-05-2024 MCHC (RBC) [Mass/Vol] 33.8 g/dL 32-36 [facility] Mean platelet volume determi nationOrdered By: Constantinelo Rojaso on 12-05-2024 Platelet mean volume (Bld) [Entitic vol] 11.4 fL 6.2-12.0 [facility] Monocyte percentageOrdered B y: Constantin Yanes on 12-05-2024 Monocytes/100 WBC (Bld) 10.7 % High 0-10 [facility] Neutrophil percentageOrdered By: Constantin Yanes on 12-05-2024 Neutrophils/100 WBC (Bld) 70.9 % High 47-70 [facility] Nucleated red blood cell per centageOrdered By: Constantin Yanes on 12-05-2024 Nucleated RBC/100 WBC (Bld) [Ratio] 0 % 0-5 [facility] Platelet countOrdered By: elo Rojaso on 12-05-2024 Platelets (Bld) [#/Vol] 114 10*3/uL Low 150-450 [facility] RBC Auto (Bld) [#/Vol]Ordere d By: Constantinelo Rojaso on 12-05-2024 RBC (Bld) [#/Vol] 4.33 10*6/uL Low 4.6-6.2 [facility] White blood cell (WBC) count Ordered By: Constantin Yanes on 12-05-2024 WBC (Bld) [#/Vol] 9.0 10*3/uL 4.4-11.0 [facility] Absolute lymphocyte countOrd ered By: Jesse Grace on 09-03-2024 Lymphocytes Auto (Unsp spec) [#/Vol] 1.56 10*3/uL 0.83-4.51 [facility] Absolute neutrophil countOrd ered By: Jesse Grace on 09-03-2024 Neutrophils (Bld) [#/Vol] 3.6 10*3/uL 2.0-7.7 [facility] Anion gap in Serum or Plasma Ordered By: Jesse Grace on 09-03-2024 Anion gap [Moles/Vol] 11 mmol/L 5-15 [facility] Automated lymphocyte count a s percentage of total leukocytesOrdered By: Jesse Grace on 09-03-2024 Lymphocytes/100 WBC Auto (Unsp spec) 25.0 % 19-41 [facility] BUN/creatinine ratioOrdered By: Jesse Grace on 09-03-2024 Urea nitrogen/Creatinine [Mass ratio] 17.2 mg/mg 10- [facility] Basic Metabolic Profile (BMP )on 09-03-2024 BUN/CRE 17.2 RATIO Normal 10-20 [facility] Comment on above: Performed By: #### L 500.2500, [id number], L100.0100, [id number] #### [facility] [address] [place], [address] Calcium [Mass/Vol] 9.1 mg/dL Normal 7.6-11.0 [facility] Comment on above: Performed By: #### L 500.2500, [id number], L100.0100, [id number] #### [facility] [address] [place], [address] Chloride [Moles/Vol] 99 mmol/L Normal 98-108 [facility] Comment on above: Performed By: #### L 500.2500, [id number], L100.0100, [id number] #### [facility] [address] [place], [address] CO2 [Moles/Vol] 26.4 mmol/L Normal 21.0-32.0 [facility] Comment on above: Performed By: #### L 500.2500, [id number], L100.0100, [id number] #### [facility] [address] [place], [address] Creatinine [Mass/Vol] 1.24 mg/dL High 0.70-1.20 [facility] Comment on above: Performed By: #### L 500.2500, [id number], L100.0100, [id number] #### [facility] [address] [place], [address] GAP 11 Normal 5-15 [facility] Comment on above: Performed By: #### L 500.2500, [id number], L100.0100, [id number] #### [facility] [address] [place], [address] GFR/1.73 sq M.predicted among non-blacks MDRD (S/P/Bld) [Vol rate/Area] 60 mL/min/{1.73_m2} Normal >60 [facility] Comment on above: Result Comment: mL/m in/1.73m2 CKD-EPI Creatinine Equation (2020) Performed By: #### L 500.2500, [id number], L100.0100, [id number] #### [facility] [address] [place], [address] Glucose [Mass/Vol] 100 mg/dL High 70-99 [facility] Comment on above: Performed By: #### L 500.2500, [id number], L100.0100, [id number] #### [facility] [address] [place], [address] Potassium [Moles/Vol] 4.5 mmol/L Normal 3.3-5.1 [facility] Comment on above: Performed By: #### L 500.2500, [id number], L100.0100, [id number] #### [facility] [address] [place], [address] Sodium [Moles/Vol] 137 mmol/L Normal 133-145 [facility] Comment on above: Performed By: #### L 500.2500, [id number], L100.0100, [id number] #### [facility] [address] [place], [address] Urea nitrogen [Mass/Vol] 21 mg/dL High 4-19 [facility] Comment on above: Performed By: #### L 500.2500, [id number], L100.0100, [id number] #### [facility] [address] [place], [address] Basophil percentageOrdered B y: Jesse Grace on 09-03-2024 Basophils/100 WBC (Bld) 1.0 % 0-1 [facility] CBC W/Diff, Automatedon Absolute Lymph 1.56 X10 3/uL Normal 0.83-4.51 [facility] Comment on above: Performed By: #### L 500.2500, [id number], L100.0100, [id number] #### [facility] [address] [place], [address] Absolute Neut 3.6 X10 3/uL Normal 2.0-7.7 [facility] Comment on above: Performed By: #### L 500.2500, [id number], L100.0100, [id number] #### [facility] [address] [place], [address] Basophils/100 WBC (Bld) 1.0 % Normal 0-1 [facility] Comment on above: Performed By: #### L 500.2500, [id number], L100.0100, [id number] #### [facility] [address] [place], [address] Eosinophils/100 WBC (Bld) 2.4 % Normal 0-5 [facility] Comment on above: Performed By: #### L 500.2500, [id number], L100.0100, [id number] #### [facility] [address] [place], [address] Erythrocyte distribution width (RBC) [Ratio] 13.9 % Normal 11.6-14.6 [facility] Comment on above: Performed By: #### L 500.2500, [id number], L100.0100, [id number] #### [facility] [address] [place], [address] Hematocrit (Bld) [Volume fraction] 39.6 % Low 40-54 [facility] Comment on above: Performed By: #### L 500.2500, [id number], L100.0100, [id number] #### [facility] Laboratory [address] [place], [address] Hemoglobin (Bld) [Mass/Vol] 13.1 g/dL Normal 13.0-16.5 [facility] Comment on above: Performed By: #### L 500.2500, L503.7505, L100.0100, L501.9985 #### [facility] [address] [place], [address] IG% 0.600 Normal 0.0-0.9 [facility] Comment on above: Result Comment: IG% - Immature Granulocytes (promyelocytes, myelocytes and metamyelocytes) > 1% indicates that a LEFT SHIFT is Present. Performed By: #### L 500.2500, L503.7505, L100.0100, L501.9985 #### [facility] [address] [place], [address] Lymphocytes/100 WBC (Bld) 25.0 % Normal 19-41 [facility] Comment on above: Performed By: #### L 500.2500, L503.7505, L100.0100, L501.9985 #### [facility] [address] [place], [address] MCH (RBC) [Entitic mass] 30.5 pg Normal 27.0-32.0 [facility] Comment on above: Performed By: #### L 500.2500, L503.7505, L100.0100, L501.9985 #### [facility] [address] [place], [address] MCHC (RBC) [Mass/Vol] 33.1 g/dL Normal 32-36 [facility] Comment on above: Performed By: #### L 500.2500, L503.7505, L100.0100, L501.9985 #### [facility] [address] [place], [address] MCV (RBC) [Entitic vol] 92.1 fL Normal 80-94 [facility] Comment on above: Performed By: #### L 500.2500, L503.7505, L100.0100, L501.9985 #### [facility] [address] [place], [address] Monocytes/100 WBC (Bld) 13.1 % High 0-10 [facility] Comment on above: Performed By: #### L 500.2500, L503.7505, L100.0100, L501.9985 #### [facility] [address] [place], [address] Neutrophils/100 WBC (Bld) 57.9 % Normal 47-70 [facility] Comment on above: Performed By: #### L 500.2500, L503.7505, L100.0100, L501.9985 #### [facility] [address] [place], [address] Nucleated RBC (Bld) [#/Vol] 0 10*3/uL Normal 0-5 [facility] Comment on above: Performed By: #### L 500.2500, L503.7505, L100.0100, L501.9985 #### [facility] [address] [place], [address] Platelet mean volume (Bld) [Entitic vol] 11.6 fL Normal 6.2-12.0 [facility] Comment on above: Performed By: #### L 500.2500, L503.7505, L100.0100, L501.9985 #### [facility] [address] [place], [address] Platelets (Bld) [#/Vol] 159 10*3/uL Normal 150-450 [facility] Comment on above: Performed By: #### L 500.2500, L503.7505, L100.0100, L501.9985 #### [facility] [address] [place], [address] RBC (Bld) [#/Vol] 4.30 10*6/uL Low 4.6-6.2 [facility] Comment on above: Performed By: #### L 500.2500, L503.7505, L100.0100, L501.9985 #### [facility] [address] [place], [address] RDW SD 47.1 fl High 35.1-43.9 [facility] Comment on above: Performed By: #### L 500.2500, L503.7505, L100.0100, L501.9985 #### [facility] [address] [place], [address] WBC (Bld) [#/Vol] 6.3 10*3/uL Normal 4.4-11.0 [facility] Comment on above: Performed By: #### L 500.2500, L503.7505, L100.0100, L501.9985 #### [facility] [address] [place], [address] Carbon dioxide, total [Moles /volume] in Central venous bloodOrdered By: Jesse Grace on 09-03-2024 CO2 [Moles/Vol] 26.4 mmol/L 21.0-32.0 [facility] Cardiology Visit Reporton Cardiology Visit Report [facility] [address] [place] [address] OFFICE VISIT Date of Service: 09/03/24 MR#: [id number] Acct: [id number] Name: BRANDON KULKARNI #: [id number] : 1945 Provider: NICK benites Age/Sex: 78/M Location: [facility] Status: Signed HPI HPI History of Present Illness Details: This is a 78-year-old man who presents to the office today for a cardiovascular follow-up visit. He has a history diastolic heart failure, hypertension, atrial fibrillation now chronic persistent status post previous angioplasty and stenting. He was admitted to the hospital in February 2022 with a non-ST elevation myocardial infarction and palpitations and was noted to be in atrial fibrillation with controlled ventricular response rate. He underwent a cardiac catheterization which demonstrated stents which were patent. His left main was normal his left anterior descending artery demonstrated patency of his mid LAD stent with a small D2 branch. The rest of the LAD had minimal atherosclerosis, the circumflex artery was a large vessel which was dominant the second OM 2 had a proximal 80% stenosis in the right coronary artery had a mid 40 to 50% stenosis. Medical therapy was recommended. You remember that he underwent a dual-chamber pacemaker implanted in December 2020 when he was being taken care of at the [facility]. It was at that time that he underwent the previous stenting which was due to an abnormal calcium score. During this visit he also underwent an echocardiographic evaluation with demonstrated an ejection fraction of 50 to 55% his pulmonary systolic pressure was 29 mmHg. He presented to the emergency room on 03/27/2023 with complaints of palpitations. His lab work was all within normal limits. He remained in atrial flutter with a paced rhythm noted on his EKG. It was determined patient was only taking his metoprolol once a day instead of twice a day. He was encouraged to increase his metoprolol to twice a day, and monitor for any concerning symptoms. He was instructed to follow-up with his PCP and cardiology. He denies chest, arm, jaw, or neck discomfort. He denies palpitations. He denies bilateral lower extremity edema. He denies claudication. He states shortness of breath with activity such as walking long distances. This improves within two minutes. He demies shortness of breath at rest, orthopnea, or PND. He denies chronic cough. He denies significant, sudden weight gain. He denies lightheadedness, dizziness, near-syncope, or syncope. He denies blood in urine, blood in stool, or epistaxis. He denies fever with chills. He denies myalgia. He states fatigue in the morning and evening. His exercise level has remained stable. Intake Vital Signs 11/16/23 08:43 09/03/24 06:39 Height 6 ft 3 in 6 ft 3 in Weight: 259 lb BMI 32.3 BP 138/75 H Blood Pressure Location Lt brachial Position Sitting Respiration 18 Pulse 60 Pulse Source Monitor Pulse Oximetry (%) 99 Intake Visit Reasons: 10 m fu Radiocommunications Technician Required: No Is patient in pain?: No Allergies lisinopril Allergy (Verified 09/03/24 09:44) Angioedema Penicillins (PCN) Allergy (Verified 09/03/24 09:44) Hives Medications ???Medication ???Instructions ???Recorded ???Confirmed ???Type cholecalciferol (vitamin D3) 50 50 mcg PO DAILY SUPPLEMENT 2 09/03/24 History mcg (2,000 unit) tablet colchicine 0.6 mg tablet 1.2 mg PO DAILY PRN gout 02/04/22 09/03/24 History ferrous gluconate 324 mg (36 mg 324 mg PO DAILY SUPPLEMENT 2 09/03/24 History iron) tablet folic acid 1 mg tablet 2 mg PO DAILY SUPPLEMENT 02/04/22 09/03/24 History apixaban 5 mg tablet 5 mg PO BID BLOOD THINNER #90 tab s 05/14/22 09/03/24 Rx doxazosin 1 mg tablet 1 mg PO DAILY BLOOD PRESSURE #90 05/14/22 09/03/24 Rx tabs pantoprazole 40 mg tablet,delayed 40 mg PO DAILY ACID REFLUX #180 0 05/14/22 09/03/24 Rx release tabs rosuvastatin 20 mg tablet 20 mg PO DAILY CHOLESTEROL #90 tab s 05/14/22 09/03/24 Rx allopurinol 100 mg tablet 200 mg PO DAILY GOUT 08/31/2205/29 History gabapentin 100 mg capsule 100 mg PO TID NEUROPATHY 08/31/22 09/03/24 History acetaminophen 325 mg tablet 325 mg PO Q6H PRN pain 03/12/23 History (Tylenol) aspirin 81 mg chewable tablet 81 mg PO DAILY #30 tabs 03/15/23 0 09/03/24 Rx albuterol sulfate 90 mcg/actuation 2 puff inhalation Q4H PRN PRN 09/03/24 Rx aerosol inhaler (Ventolin HFA) Wheezing ##1 guaifenesin 1,200 mg tablet, 1,200 mg PO BID PRN congestion #10 05/26/23 09/03/24 Rx extended release 12 hr (Mucinex) tabs isosorbide mononitrate 30 mg 30 mg PO DAILY #30 tabs 07/16/23 0 09/03/24 Rx tablet,extended release 24 hr fluticasone 100 mcg-salmeterol 50 1 inh inhala (more content not included)... Normal [facility] Chloride assayOrdered By: Magdalena Grace on 09-03-2024 Chloride [Moles/Vol] 99 mmol/L 98-108 [facility] Eosinophil percentageOrdered By: Jesse Grace on 09-03-2024 Eosinophils/100 WBC (Bld) 2.4 % 0-5 [facility] Erythrocyte distribution wid th ratioOrdered By: Jesse Grace on 09-03-2024 Erythrocyte distribution width (RBC) [Ratio] 13.9 % 11.6-14.6 [facility] Erythrocyte distribution wid th standard deviationOrdered By: Jesse Grace on 09-03-2024 Erythrocyte distribution width (RBC) [Ratio] 47.1 fl High 35.1-43.9 [facility] Glomerular filtration rate ( GFR) estimation/1.73 sq m using serum, plasma, or whole bOrdered By: Jesse Grace on 09-03-2024 GFR/1.73 sq M.predicted among non-blacks MDRD (S/P/Bld) [Vol rate/Area] 60 mL/min/{1.73_m2} >60 [facility] Comment on above: mL/min/1.73m2 CKD-EP I Creatinine Equation (2020) Hematocrit Auto (Bld) [Volum e fraction]Ordered By: Jesse Grace on 09-03-2024 Hematocrit (Bld) [Volume fraction] 39.6 % Low 40-54 [facility] Hemoglobin A1con 09-03-2024 HbA1c (Bld) [Mass fraction] 5.6 % Normal <=5.6 [facility] Comment on above: Result Comment: Norm al < 5.7 % Prediabetic 5.7 - 6.4 % Diabetic >or= 6.5 % Please note range changes. Performed By: #### L 500.2500, L503.7505, L100.0100, L501.9985 #### [facility] [address] [place], [place], [id number] Hemoglobin A1c percentageOrd ered By: Jesse Grace on 09-03-2024 HbA1c (Bld) [Mass fraction] 5.6 % <5.7 [facility] Comment on above: Normal < 5.7 % Predi abetic 5.7 - 6.4 % Diabetic >or= 6.5 % Please note range changes. Hemoglobin measurementOrdere d By: Jesse Grace on 09-03-2024 Hemoglobin (Bld) [Mass/Vol] 13.1 g/dL 13.0-16.5 [facility] Immature granulocytes/100 WB C Auto (Bld)Ordered By: Jesse Grace on 09-03-2024 Immature granulocytes/100 WBC (Bld) 0.600 % 0.0-0.9 [facility] Comment on above: IG% - Immature Granu locytes (promyelocytes, myelocytes and metamyelocytes) > 1% indicates that a LEFT SHIFT is Present. L503.7505on 09-03-2024 Natriuretic peptide B (Bld) [Mass/Vol] 1524 pg/mL Normal <=1800 [facility] Comment on above: Result Comment: Hear t Failure Unlikely: < 300 pg/mL Heart Failure Likely < 50 Years: > 450 pg/mL 50-75 Years: > 900 pg/mL >75 Years: > 1800 pg/mL Performed By: #### L 500.2500, L503.7505, L100.0100, L501.9985 #### [facility] [address] [place], [place], [id number] MCV (mean corpuscular volume ) determinationOrdered By: Jesse Grace on 09-03-2024 MCV (RBC) [Entitic vol] 92.1 fL 80-94 [facility] Mean corpuscular hemoglobin (MCH) determinationOrdered By: Jesse Grace on 09-03-2024 MCH (RBC) [Entitic mass] 30.5 pg 27.0-32.0 [facility] Mean corpuscular hemoglobin concentration (MCHC) determinationOrdered By: Jesse Grace on 09-03-2024 MCHC (RBC) [Mass/Vol] 33.1 g/dL 32-36 [facility] Mean platelet volume determi nationOrdered By: Jesse Grace on 09-03-2024 Platelet mean volume (Bld) [Entitic vol] 11.6 fL 6.2-12.0 [facility] Monocyte percentageOrdered B y: Jesse Grace on 09-03-2024 Monocytes/100 WBC (Bld) 13.1 % High 0-10 [facility] Natriuretic peptide.B prohor luana N-Terminal [Mass/volume] in Serum or PlasmaOrdered By: Jesse Grace on 09-03-2024 Natriuretic peptide.B prohormone N-Terminal [Mass/Vol] 1524 pg/mL <1800 [facility] Comment on above: Heart Failure Unlike ly: < 300 pg/mLHeart Failure Likely< 50 Years: > 450 pg/mL50-75 Years: > 900 pg/mL>75 Years: > 1800 pg/mL Neutrophil percentageOrdered By: Jesse Grace on 09-03-2024 Neutrophils/100 WBC (Bld) 57.9 % 47-70 [facility] Nucleated red blood cell per centageOrdered By: Jesse Grace on 09-03-2024 Nucleated RBC/100 WBC (Bld) [Ratio] 0 % 0-5 [facility] Platelet countOrdered By: Magdalena Grace on 09-03-2024 Platelets (Bld) [#/Vol] 159 10*3/uL 150-450 [facility] Potassium measurement (mass/ volume)Ordered By: Jesse Grace on 09-03-2024 Potassium (Unsp spec) [Mass/Vol] 4.5 mmol/L 3.3-5.1 [facility] RBC Auto (Bld) [#/Vol]Ordere d By: Jesse Grace on 09-03-2024 RBC (Bld) [#/Vol] 4.30 10*6/uL Low 4.6-6.2 [facility] Serum creatinine measurement (mass/volume)Ordered By: Jesse Grace on 09-03-2024 Creatinine [Mass/Vol] 1.24 mg/dL High 0.70-1.20 [facility] Serum glucose measurement (m ass/volume)Ordered By: Jesse Grace on 09-03-2024 Glucose [Mass/Vol] 100 mg/dL High 70-99 [facility] Serum or plasma calcium desmond urement (mass/volume)Ordered By: Jesse Grace on 09-03-2024 Calcium [Mass/Vol] 9.1 mg/dL 7.6-11.0 [facility] Serum or plasma urea nitroge n measurement (mass/volume)Ordered By: Jesse Grace on 09-03-2024 Urea nitrogen [Mass/Vol] 21 mg/dL High 4-19 [facility] Sodium levelOrdered By: Jesse Grace on 09-03-2024 Sodium [Moles/Vol] 137 mmol/L 133-145 [facility] White blood cell (WBC) count Ordered By: Jesse Grace on 09-03-2024 WBC (Bld) [#/Vol] 6.3 10*3/uL 4.4-11.0 [facility] CNPNon 02-01-2024 ISAE[place]LLEN Telephone (LUIS MIGUEL) BRANDON KULKARNI ([id number]) 1945 M Date Time Provider Department 02/01/24 [facility] During your visit today, we recorded the following information about you: Clarisse Smith LPN 02/01/2024 12:05 PM Signed Cassidy, from the OR, calling to check on status of patient appointment. Referral was for anemia. Patient no showed in September 2023 and was rescheduled to 11/25/2023. Patient had labs on 11/25/2023, OV appointment was canceled and Dr. Torres said he would call with results, unsure if that happened. Lina, can you please review lab results from 11/25/2023, and determine if patient needs to be seen for anemia? ELZBIETA Fraser Brianna 02/01/2024 1:02 PM Signed Looks like Jocelyn tried to reach Cassidy a few weeks ago. (In telephone encounter dated 11/28/2023) Dr. South reviewed labs, Hgb low but anemia work up labs are WNL. No need for additional labs or follow up at this time. On 11/25/23 hgb 12 hct 37.9, up to 12.2 on 12/25 With an improvement in counts no further workup is indicated at this time but would be happy to see the patient if he wishes to be seen. Lina Dobbs APRN.Clarisse Mcgowan LPN 02/01/2024 1:09 PM Signed A copy of this note was faxed to Cassidy at the OR. I also left Cassidy a message asking her to contact this nurse. ELZBIETA Fraser Pamela S, LPN 02/03/2024 3:15 PM Signed Cassidy at OR, called and states they received the note faxed by lCarisse. Cony Quiroga LPN Allergies As of Date: 02/01/2024 Noted Allergy Reaction KEITH INHIBITORS 11/05/2015 10 - Anaphylaxis ATORVASTATIN 04/17/2019 16 - Unknown LISINOPRIL 11/05/2015 7 - Swelling PENICILLIN 11/05/2015 2 - Rash Date Reviewed: 03/02/2023 Reviewed by: Lilly Alcaraz, IZABELA - Fully Assessed Reason for Visit: Results [95] Prescriptions as of 02/03/2024 - ferrous gluconate 324 mg (37.5 mg iron) tablet Take 324 mg by mouth once daily. - aspirin, enteric coated (ASPIRIN, ENTERIC COATED) 81 mg EC tablet Take 81 mg by mouth once daily. - gabapentin (NEURONTIN) 100 mg capsule Take 100 mg by mouth two times a day. - predniSONE (DELTASONE) 10 mg tablet 10 mg as needed. - methotrexate 2.5 mg tablet 15 mg. - MULTIVITAMIN ORAL TAKE 1 CAPSULE BY MOUTH TWICE A DAY FOR MACULAR DEGENERATION - allopurinol (ZYLOPRIM) 100 mg tablet 100 mg once daily. - acetaminophen (TYLENOL) 325 mg tablet TAKE ONE TO TWO TABLETS BY MOUTH FOUR TIMES A DAY NEEDED FOR PAIN. - doxazosin (CARDURA) 1 mg tablet Take 1 tablet by mouth every morning. - cholecalciferol (VITAMIN D3) 50 mcg (2,000 unit) tablet Take 1 tablet by mouth once daily. - folic acid 1 mg tablet Take 2 tablets by mouth once daily. - metoprolol succinate ER (TOPROL XL) 50 mg 24 hr tablet Take 1 tablet by mouth twice daily. - colchicine 0.6 mg tablet Take by mouth. - isosorbide dinitrate (ISORDIL) 30 mg tablet Take 1 tablet by mouth three times daily. - rosuvastatin (CRESTOR) 20 mg tablet Take 20 mg by mouth once daily. - fluticasone prp-sod.chl,bicarb 50 mcg- 0.9 % ksps Use 50 mcg in the nose once daily. - PEG 1488-Jhvmtpbqrii-Qmp C (MOVIPREP) 100-7.5-2.691 gram Take by mouth one time only. Will take for colon prep - amLODIPine-benazepril (LOTREL) 5-10 mg per capsule Take 1 capsule by mouth. - Carboxymethylcellulose- Glycern (OPTIVE) 0.5-0.9 % drop Use in eyes. - cyclobenzaprine (FLEXERIL) 10 mg tablet Take 10 mg by mouth. - diclofenac sodium (VOLTAREN) 1 % topical gel Apply to affected area. - ferrous sulfate 325 mg (65 mg iron) tablet Take 325 mg by mouth. - furosemide (LASIX) 40 mg tablet Take 40 mg by mouth. - hydrALAZINE (APRESOLINE) 10 mg tablet Take 10 mg by mouth. - pantoprazole DR (PROTONIX) 40 mg tablet Take 40 mg by mouth. - potassium chloride ER (K-DUR, KLOR-CON) 10 mEq tablet Take 10 mEq by mouth. - SODIUM CHLORIDE OPHTHALMIC Use in eyes. - apixaban (ELIQUIS) 5 mg tab tab(s) Take 5 mg by mouth twice daily. - atorvastatin (LIPITOR) 40 mg tablet Take 1 tablet by mouth once daily. - loratadine (CLARITIN) 10 mg tablet Take 10 mg by mouth as needed. - NIFEdipine XL (ADALAT CC, PROCARDIA XL) 60 mg 24 hr tablet Take 60 mg by mouth twice daily. - omeprazole (PRILOSEC) 20 mg capsule Take 20 mg by mouth daily before breakfast. Problem List As Of Date 02/01/2024 Noted Resolved Essential hypertension [I10] 11/28/2015 Gastroesophageal reflux disease without esophag*11/28/2015 Pre-operative cardiovascular exam, new EKG abno*12/03/2015 Hypercholesterolemia [E78.00] 12/03/2015 Class 1 obesity due to excess calories with ser*05/31/2016 Chronic anticoagulation [Z79.01] 05/31/2016 Chronic a-fib (HCC) [I48.20] 11/29/2016 Coronary artery disease involving upper [place]*11/29/2016 Chronic diastolic heart failure (HCC) [I50.32] 03/23/2022 Diagnosed: 02/14/2023 I (more content not included)... [facility]LUIS MIGUEL[facility] BRANDON KULKARNI ([id number]) 1945 M Date Time Provider Department 11/28/23 [facility] During your visit today, we recorded the following information about you: Clarisse Smith LPN 11/28/2023 3:25 PM Signed OR contacted office asking why new patient appointment on 11/25/2023 was cancelled? Also, if patient was notified of lab results? ELZBIETA Fraser Melissa 11/28/2023 3:29 PM Addendum OR states PCP to be evaluated. Please call Cassidy at [phone] x [phone]. Please fax 11/24 lab results to OR [phone] [facility] ELZBIETA Fraser Cathleen, RN 12/12/2023 8:30 AM Signed This was given to Dr. South 2 weeks ago to call. IZABELA Johnson Pamela S, LPN 01/10/2024 11:27 AM Signed Cassidy from OR once again called and would like return call today. [phone] or [address] , needs to know if pt. Had been seen and lab results discussed with pt., there is nothing documented . ELZBIETA Owen Cathleen, RN 01/10/2024 3:[address] South reviewed labs, Hgb low but anemia work up labs are WNL. No need for additional labs or follow up at this time. Dr. South states he tried to call patient regarding labs but can't remember if he actually talked with him or not. He is glad to see patient if patient wishes to be seen. Jocelyn Lanza RN This nurse call patient, no answer. Call to Cassidy, no answer and message left with above information along with my contact information. Jocelyn Lanza RN Allergies As of Date: 11/28/2023 Noted Allergy Reaction KEITH INHIBITORS 11/05/2015 10 - Anaphylaxis ATORVASTATIN 04/17/2019 16 - Unknown LISINOPRIL 11/05/2015 7 - Swelling PENICILLIN 11/05/2015 2 - Rash Date Reviewed: 03/02/2023 Reviewed by: Lilly Alcaraz RN - Fully Assessed Reason for Visit: Results [95] Prescriptions as of 01/10/2024 - ferrous gluconate 324 mg (37.5 mg iron) tablet Take 324 mg by mouth once daily. - aspirin, enteric coated (ASPIRIN, ENTERIC COATED) 81 mg EC tablet Take 81 mg by mouth once daily. - gabapentin (NEURONTIN) 100 mg capsule Take 100 mg by mouth two times a day. - predniSONE (DELTASONE) 10 mg tablet 10 mg as needed. - methotrexate 2.5 mg tablet 15 mg. - MULTIVITAMIN ORAL TAKE 1 CAPSULE BY MOUTH TWICE A DAY FOR MACULAR DEGENERATION - allopurinol (ZYLOPRIM) 100 mg tablet 100 mg once daily. - acetaminophen (TYLENOL) 325 mg tablet TAKE ONE TO TWO TABLETS BY MOUTH FOUR TIMES A DAY NEEDED FOR PAIN. - doxazosin (CARDURA) 1 mg tablet Take 1 tablet by mouth every morning. - cholecalciferol (VITAMIN D3) 50 mcg (2,000 unit) tablet Take 1 tablet by mouth once daily. - folic acid 1 mg tablet Take 2 tablets by mouth once daily. - metoprolol succinate ER (TOPROL XL) 50 mg 24 hr tablet Take 1 tablet by mouth twice daily. - colchicine 0.6 mg tablet Take by mouth. - isosorbide dinitrate (ISORDIL) 30 mg tablet Take 1 tablet by mouth three times daily. - rosuvastatin (CRESTOR) 20 mg tablet Take 20 mg by mouth once daily. - fluticasone prp-sod.chl,bicarb 50 mcg- 0.9 % ksps Use 50 mcg in the nose once daily. - PEG 8105-Nyxgepxcgua-Wov C (MOVIPREP) 100-7.5-2.691 gram Take by mouth one time only. Will take for colon prep - amLODIPine-benazepril (LOTREL) 5-10 mg per capsule Take 1 capsule by mouth. - Carboxymethylcellulose- Glycern (OPTIVE) 0.5-0.9 % drop Use in eyes. - cyclobenzaprine (FLEXERIL) 10 mg tablet Take 10 mg by mouth. - diclofenac sodium (VOLTAREN) 1 % topical gel Apply to affected area. - ferrous sulfate 325 mg (65 mg iron) tablet Take 325 mg by mouth. - furosemide (LASIX) 40 mg tablet Take 40 mg by mouth. - hydrALAZINE (APRESOLINE) 10 mg tablet Take 10 mg by mouth. - pantoprazole DR (PROTONIX) 40 mg tablet Take 40 mg by mouth. - potassium chloride ER (K-DUR, KLOR-CON) 10 mEq tablet Take 10 mEq by mouth. - SODIUM CHLORIDE OPHTHALMIC Use in eyes. - apixaban (ELIQUIS) 5 mg tab tab(s) Take 5 mg by mouth twice daily. - atorvastatin (LIPITOR) 40 mg tablet Take 1 tablet by mouth once daily. - loratadine (CLARITIN) 10 mg tablet Take 10 mg by mouth as needed. - NIFEdipine XL (ADALAT CC, PROCARDIA XL) 60 mg 24 hr tablet Take 60 mg by mouth twice daily. - omeprazole (PRILOSEC) 20 mg capsule Take 20 mg by mouth daily before breakfast. Problem List As Of Date 11/28/2023 Noted Resolved Essential hypertension [I10] 11/28/2015 Gastroesophageal reflux disease without esophag*11/28/2015 Pre-operative cardiovascular exam, new EKG abno*12/03/2015 Hypercholesterolemia [E78.00] 12/03/2015 Class 1 obesity due to excess calories with ser*05/31/2016 Chronic anticoagulation [Z79.01] 05/31/2016 Chronic a-fib (HCC) [I48.20] 11/29/2016 Coronary ar (more content not included)... Normal [facility] CBC W Auto Differential pane l (Bld)on 11-25-2023 Basophils (Bld) [#/Vol] 0.04 10*3/uL Normal <0.11 [facility] Comment on above: Order Comment: Speci men Type: BLOOD SPECIMEN Ordering Facility: [facility] Address: [address] [place] [address] Performed By: #### 5 7021-8, 29080-9 #### [facility] [facility] CLIA [id number] [address] [place] [address] [place] Basophils/100 WBC (Bld) 0.7 % Normal [facility] Comment on above: Order Comment: Speci men Type: BLOOD SPECIMEN Ordering Facility: [facility] Address: [address] [place] [address] Performed By: #### 5 7021-8, 38272-9 #### [facility] CLIA [id number] [address] [place] [address] [place] Differential cell count method Nom (Bld) Auto Normal [facility] Comment on above: Order Comment: Speci men Type: BLOOD SPECIMEN Ordering Facility: [facility] Address: [address] [place] [address] Performed By: #### 5 7021-8, 31440-1 #### [facility] CLIA [id number] [address] [place] [address] [place] Eosinophils (Bld) [#/Vol] 0.21 10*3/uL Normal <0.46 [facility] Comment on above: Order Comment: Speci men Type: BLOOD SPECIMEN Ordering Facility: [facility] Address: [address] [place] [address] Performed By: #### 5 7021-8, 75569-3 #### [facility] CLIA [id number] [address] [place] [address] [place] Eosinophils/100 WBC (Bld) 3.5 % Normal [facility] Comment on above: Order Comment: Speci men Type: BLOOD SPECIMEN Ordering Facility: [facility] Address: [facility] [place] [id number] Performed By: #### 5 7021-8, 27446-5 #### [facility] CLIA [id number] [address] [place] [address] [place] Erythrocyte distribution width (RBC) [Ratio] 15.0 % Normal 11.5-15.0 [facility] Comment on above: Order Comment: Speci men Type: BLOOD SPECIMEN Ordering Facility: [facility] Address: [address] [place] [address] Performed By: #### 5 7021-8, 73378-0 #### [facility] CLIA [id number] [address] [place] [address] [place] Hematocrit (Bld) [Volume fraction] 37.9 % Low 39.0-51.0 [facility] Comment on above: Order Comment: Speci men Type: BLOOD SPECIMEN Ordering Facility: [facility] Address: [facility] [place] [id number] Performed By: #### 5 7021-8, 81109-2 #### [facility] CLIA [id number] [address] [place] [address] [place] Hemoglobin (Bld) [Mass/Vol] 12.0 g/dL Low 13.0-17.0 [facility] Comment on above: Order Comment: Speci men Type: BLOOD SPECIMEN Ordering Facility: [facility] Address: [address] [place], [place] [address] Performed By: #### 5 7021-8, 29506-1 #### [facility] CLIA [id number] [address] [place] [address] [place] Immature granulocytes (Bld) [#/Vol] 10*3/uL Normal <0.10 [facility] Comment on above: Order Comment: Speci men Type: BLOOD SPECIMEN Ordering Facility: [facility] Address: [address] [place] [address] Performed By: #### 5 7021-8, 13299-8 #### [facility] CLIA [id number] [address] [place] [address] [place] Immature granulocytes/100 WBC (Bld) 0.3 % Normal [facility] Comment on above: Order Comment: Speci men Type: BLOOD SPECIMEN Ordering Facility: [facility] Address: [address] [place] [address] Performed By: #### 5 7021-8, 42314-1 #### [facility] CLIA [id number] [address] [place] [address] [place] Lymphocytes (Bld) [#/Vol] 1.65 10*3/uL Normal 1.00-4.00 [facility] Comment on above: Order Comment: Speci men Type: BLOOD SPECIMEN Ordering Facility: [facility] Address: [address] [place] [address] Performed By: #### 5 7021-8, 76823-2 #### [facility] CLIA [id number] [address] [place] [address] [place] Lymphocytes/100 WBC (Bld) 27.6 % Normal [facility] Comment on above: Order Comment: Speci men Type: BLOOD SPECIMEN Ordering Facility: [facility] Address: [address] [place] [address] Performed By: #### 5 7021-8, 91494-5 #### [facility] CLIA [id number] [address] [place] [address] [place] MCH (RBC) [Entitic mass] 28.9 pg Normal 26.0-34.0 [facility] Comment on above: Order Comment: Speci men Type: BLOOD SPECIMEN Ordering Facility: [facility] Address: [address] [place] [address] Performed By: #### 5 7021-8, 94206-0 #### [facility] CLIA [id number] [address] [place] [address] [place] MCHC (RBC) [Mass/Vol] 31.7 g/dL Normal 30.5-36.0 [facility] Comment on above: Order Comment: Speci men Type: BLOOD SPECIMEN Ordering Facility: [facility] Address: [address] [place] [address] Performed By: #### 5 7021-8, 25668-7 #### [facility] CLIA [id number] [address] [place] [address] [place] MCV (RBC) [Entitic vol] 91.3 fL Normal 80.0-100.0 [facility] Comment on above: Order Comment: Speci men Type: BLOOD SPECIMEN Ordering Facility: [facility] Address: [address] [place] [address] Performed By: #### 5 7021-8, 16527-9 #### [facility] CLIA [id number] [address] [place] [address] [place] Monocytes (Bld) [#/Vol] 0.82 10*3/uL Normal <0.87 [facility] Comment on above: Order Comment: Speci men Type: BLOOD SPECIMEN Ordering Facility: [facility] Address: [address] [place] [address] Performed By: #### 5 7021-8, 37304-6 #### [facility] CLIA [id number] [address] [place] [address] Monocytes/100 WBC (Bld) 13.7 % Normal [facility] Comment on above: Order Comment: Speci men Type: BLOOD SPECIMEN Ordering Facility: [facility] Address: [address] [place], [place] [address] Performed By: #### 5 7021-8, 31061-1 #### [facility] CLIA [id number] [address] [place] [address] [place] Neutrophils (Bld) [#/Vol] 3.24 10*3/uL Normal 1.45-7.50 [facility] Comment on above: Order Comment: Speci men Type: BLOOD SPECIMEN Ordering Facility: [facility] Address: [address] [place] [address] Performed By: #### 5 7021-8, 84042-3 #### [facility] CLIA [id number] [address] [place] [address] [place] Neutrophils/100 WBC (Bld) 54.2 % Normal [facility] Comment on above: Order Comment: Speci men Type: BLOOD SPECIMEN Ordering Facility: [facility] Address: [address] [place] [address] Performed By: #### 5 7021-8, 78808-1 #### [facility] CLIA [id number] [address] [place] [address] [place] Nucleated RBC (Bld) [#/Vol] 10*3/uL Normal <0.01 [facility] Comment on above: Order Comment: Speci men Type: BLOOD SPECIMEN Ordering Facility: [facility] Address: [address] [place] [address] Performed By: #### 5 7021-8, 41220-8 #### [facility] CLIA [id number] [address] [place] [address] [place] Nucleated RBC/100 WBC (Bld) [Ratio] 0.0 /100 WBC Normal [facility] Comment on above: Order Comment: Speci men Type: BLOOD SPECIMEN Ordering Facility: [facility] Address: [address] [place] [address] Performed By: #### 5 7021-8, 17858-9 #### [facility] CLIA [id number] [address] [place] [address] [place] Platelet mean volume (Bld) [Entitic vol] 11.1 fL Normal 9.0-12.7 [facility] Comment on above: Order Comment: Speci men Type: BLOOD SPECIMEN Ordering Facility: [facility] Address: [address] [place] [address] Performed By: #### 5 7021-8, 47134-2 #### [facility] CLIA [id number] [address] [place] [address] [place] Platelets (Bld) [#/Vol] 125 10*3/uL Low 150-400 [facility] Comment on above: Order Comment: Speci men Type: BLOOD SPECIMEN Ordering Facility: [facility] Address: [address] [place] [address] Result Comment: No c lot detected. Performed By: #### 5 7021-8, 88639-2 #### [facility] CLIA [id number] [address] [place] [address] [place] RBC (Bld) [#/Vol] 4.15 10*6/uL Low 4.20-6.00 [facility] Comment on above: Order Comment: Speci men Type: BLOOD SPECIMEN Ordering Facility: [facility] Address: [address] [place] [address] Performed By: #### 5 7021-8, 42237-0 #### [facility] CLIA [id number] [address] [place] [address] [place] WBC (Bld) [#/Vol] 5.98 10*3/uL Normal 3.70-11.00 [facility] Comment on above: Order Comment: Speci men Type: BLOOD SPECIMEN Ordering Facility: [facility] Address: [address] [place] [address] Performed By: #### 5 7021-8, 33192-6 #### [facility] CLIA [id number] [address] [place] [address] [place] Ferritin SerPl-mCncon 2023 Ferritin [Mass/Vol] 120.0 ng/mL Normal 30.3-565.7 [facility] Comment on above: Order Comment: Speci men Type: BLOOD SPECIMEN Ordering Facility: [facility] Address: [address] [place] [address] Performed By: #### 4 542-7, 89596-1, 2276-4 #### [facility] CLIA [id number] [address] [place] [address] [place] Folate SerPl-mCncon 11-25-19 Folate [Mass/Vol] ng/mL Normal >4.7 [facility] Comment on above: Order Comment: Speci men Type: BLOOD SPECIMEN Ordering Facility: [facility] Address: [address] [place] [address] Result Comment: A re sult of > 20 ng/mL is not necessarily indicative of a pathologic or treatable condition: it reflects a limitation of the test methodology. Assay reference range: 4.8 to 24.2 ng/mL. Suitable for detection of folate deficiency. Reference: Folate III (Folate III) [package insert V 1.0 Indian]. [facility], [place], [place]: February 2015. Performed By: #### 2 132-9, 2284-8 #### [facility] CLIA [id number] [address] [place] [address] [place] Haptoglob SerPl-mCncon 11-24 Haptoglobin [Mass/Vol] 209 mg/dL Normal 31-238 [facility] Comment on above: Order Comment: Speci men Type: BLOOD SPECIMEN Ordering Facility: [facility] Address: [address] [place] [address] Performed By: #### 4 542-7, 36530-7, 2276-4 #### [facility] CLIA [id number] [address] [place] [address] [place] Iron and Iron binding capaci ty panelon 11-25-2023 Iron [Mass/Vol] 57 ug/dL Normal 41-186 [facility] Comment on above: Order Comment: Speci men Type: BLOOD SPECIMEN Ordering Facility: [facility] Address: [address] [place] [address] Performed By: #### 4 542-7, 09875-1, 2276-4 #### [facility] CLIA [id number] [address] [place] [address] [place] Iron binding capacity [Mass/Vol] 288 ug/dL Normal 232-386 [facility] Comment on above: Order Comment: Speci men Type: BLOOD SPECIMEN Ordering Facility: [facility] Address: [address] [place] [address] Performed By: #### 4 542-7, 11396-9, 6-4 #### [facility] CLIA [id number] [address] [place] [address] [place] Iron/TIBC [Molar ratio] 19.8 % Normal 15.0-57.0 [facility] Comment on above: Order Comment: Speci men Type: BLOOD SPECIMEN Ordering Facility: [facility] Address: [address] [place] [address] Performed By: #### 4 542-7, 36385-1, 2276-4 #### [facility] CLIA [id number] [address] [place] [address] [place] Retics #on 11-25-2023 Reticulocytes (Bld) [#/Vol] 0.44073 10*3/uL Normal 0.018-0.100 [facility] Comment on above: Order Comment: Speci men Type: BLOOD SPECIMEN Ordering Facility: [facility] Address: [address] [place] [address] Performed By: #### 5 7021-8, 75623-1 #### [facility] CLIA [id number] [address] [place] [address] [place] Reticulocytes (Bld) [#/Vol]o n 11-25-2023 Reticulocytes/100 RBC (Bld) 2.0 % Normal 0.4-2.0 [facility] Comment on above: Order Comment: Speci men Type: BLOOD SPECIMEN Ordering Facility: [facility] Address: [address] [place] [address] Performed By: #### 5 7021-8, 45884-7 #### [facility] CLIA [id number] [address] [place] [address] [place] Vit B12 SerPl-ncon 024 Cobalamin (Vitamin B12) [Mass/Vol] 279 pg/mL Normal 232-1245 [facility] Comment on above: Order Comment: Speci men Type: BLOOD SPECIMEN Ordering Facility: [facility] Address: [address] [place] [address] Performed By: #### 2 132-9, 2284-8 #### [facility] CLIA [id number] [address] [place], [place] [address] [place] XR Chest PA and Lateralon EXAMINATION: XR CHES T PA+LAT 2 VIEWS 10/26/2023 10:52 AM CLINICAL HISTORY: Dyspnea ASSOCIATED DIAGNOSIS: Dyspnea, unspecified type ORDERING PROVIDER: JI [employer] NOTE: COMPARISON: XR CHEST 2 VIEW PA+LAT 11/06/2021, 10:47 AM FINDINGS: Cardiomediastinal silhouette: The heart is borderline enlarged. A dual lead cardiac device is present with lead tips overlying the right atrial appendage and right ventricle. Thoracic aorta calcifications. Coronary stent. Lungs/Pleura: Minimal blunting of the left costophrenic angle suggestive of atelectasis/scarring. No new focal pulmonary consolidation, effusion or pneumothorax. Musculoskeletal: Degenerative spurring within the thoracic spine. IMPRESSION: Left basilar atelectasis/scarring. No large consolidative pneumonia or overt pulmonary edema. MACRO: None RADIOLOGY Tiffany Gage MD - 10/26/2023 EXAMINATION: XR CHEST PA+LAT 2 VIEWS 10/26/2023 10:52 AM CLINICAL HISTORY: Dyspnea ASSOCIATED DIAGNOSIS: Dyspnea, unspecified type ORDERING PROVIDER: [employer]I [employer] NOTE: COMPARISON: XR CHEST 2 VIEW PA+LAT 11/06/2021, 10:47 AM FINDINGS: Cardiomediastinal silhouette: The heart is borderline enlarged. A dual lead cardiac device is present with lead tips overlying the right atrial appendage and right ventricle. Thoracic aorta calcifications. Coronary stent. Lungs/Pleura: Minimal blunting of the left costophrenic angle suggestive of atelectasis/scarring. No new focal pulmonary consolidation, effusion or pneumothorax. Musculoskeletal: Degenerative spurring within the thoracic spine. IMPRESSION: Left basilar atelectasis/scarring. No large consolidative pneumonia or overt pulmonary edema. MACRO: None [facility] Radiology Study observation (narrative) [facility] XR Chest PA and LateralOrder ed By: Tiffany Gage on 10-26-2023 [facility] [facility] BRANDON KULKARNI ([id number]) 1945 M Date Time Provider Department 10/18/23 RAD [facility] During your visit today, we recorded the following information about you: Lizabeth Monroe, RN 10/18/2023 2:13 PM Signed Abril from OR in [place] called asking if pt ever came in for appointment. He has not. He no showed on 09/[address]. Abril asked if we could attempt to call pt and offer to reschedule please? Barbara Colon 10/19/2023 10:42 AM Signed Rescheduled with patient Allergies As of Date: 10/18/2023 Noted Allergy Reaction KEITH INHIBITORS 11/05/2015 10 - Anaphylaxis ATORVASTATIN 04/17/2019 16 - Unknown LISINOPRIL 11/05/2015 7 - Swelling PENICILLIN 11/05/2015 2 - Rash Date Reviewed: 03/02/2023 Reviewed by: Lilly Alcaraz RN - Fully Assessed Reason for Visit: Appointment [186] Prescriptions as of 10/19/2023 - ferrous gluconate 324 mg (37.5 mg iron) tablet Take 324 mg by mouth once daily. - aspirin, enteric coated (ASPIRIN, ENTERIC COATED) 81 mg EC tablet Take 81 mg by mouth once daily. - gabapentin (NEURONTIN) 100 mg capsule Take 100 mg by mouth two times a day. - predniSONE (DELTASONE) 10 mg tablet 10 mg as needed. - methotrexate 2.5 mg tablet 15 mg. - MULTIVITAMIN ORAL TAKE 1 CAPSULE BY MOUTH TWICE A DAY FOR MACULAR DEGENERATION - allopurinol (ZYLOPRIM) 100 mg tablet 100 mg once daily. - acetaminophen (TYLENOL) 325 mg tablet TAKE ONE TO TWO TABLETS BY MOUTH FOUR TIMES A DAY NEEDED FOR PAIN. - doxazosin (CARDURA) 1 mg tablet Take 1 tablet by mouth every morning. - cholecalciferol (VITAMIN D3) 50 mcg (2,000 unit) tablet Take 1 tablet by mouth once daily. - folic acid 1 mg tablet Take 2 tablets by mouth once daily. - metoprolol succinate ER (TOPROL XL) 50 mg 24 hr tablet Take 1 tablet by mouth twice daily. - colchicine 0.6 mg tablet Take by mouth. - isosorbide dinitrate (ISORDIL) 30 mg tablet Take 1 tablet by mouth three times daily. - rosuvastatin (CRESTOR) 20 mg tablet Take 20 mg by mouth once daily. - fluticasone prp-sod.chl,bicarb 50 mcg- 0.9 % ksps Use 50 mcg in the nose once daily. - PEG 8283-Hotkkrxiykr-Udu C (MOVIPREP) 100-7.5-2.691 gram Take by mouth one time only. Will take for colon prep - amLODIPine-benazepril (LOTREL) 5-10 mg per capsule Take 1 capsule by mouth. - Carboxymethylcellulose- Glycern (OPTIVE) 0.5-0.9 % drop Use in eyes. - cyclobenzaprine (FLEXERIL) 10 mg tablet Take 10 mg by mouth. - diclofenac sodium (VOLTAREN) 1 % topical gel Apply to affected area. - ferrous sulfate 325 mg (65 mg iron) tablet Take 325 mg by mouth. - furosemide (LASIX) 40 mg tablet Take 40 mg by mouth. - hydrALAZINE (APRESOLINE) 10 mg tablet Take 10 mg by mouth. - pantoprazole DR (PROTONIX) 40 mg tablet Take 40 mg by mouth. - potassium chloride ER (K-DUR, KLOR-CON) 10 mEq tablet Take 10 mEq by mouth. - SODIUM CHLORIDE OPHTHALMIC Use in eyes. - apixaban (ELIQUIS) 5 mg tab tab(s) Take 5 mg by mouth twice daily. - atorvastatin (LIPITOR) 40 mg tablet Take 1 tablet by mouth once daily. - loratadine (CLARITIN) 10 mg tablet Take 10 mg by mouth as needed. - NIFEdipine XL (ADALAT CC, PROCARDIA XL) 60 mg 24 hr tablet Take 60 mg by mouth twice daily. - omeprazole (PRILOSEC) 20 mg capsule Take 20 mg by mouth daily before breakfast. Problem List As Of Date 10/18/2023 Noted Resolved Essential hypertension [I10] 11/28/2015 Gastroesophageal reflux disease without esophag*11/28/2015 Pre-operative cardiovascular exam, new EKG abno*12/03/2015 Hypercholesterolemia [E78.00] 12/03/2015 Class 1 obesity due to excess calories with ser*05/31/2016 Chronic anticoagulation [Z79.01] 05/31/2016 Chronic a-fib (HCC) [I48.20] 11/29/2016 Coronary artery disease involving upper [place]*11/29/2016 Chronic diastolic heart failure (HCC) [I50.32] 03/23/2022 Iron deficiency anemia due to chronic blood los*05/10/2019 Other spondylosis, lumbar region [M47.896] 02/14/2023 Rheumatoid arthritis, unspecified (HCC) [M06.9] 02/14/2023 History of pacemaker [Z95.0] 02/14/2023 Hypokalemia [E87.6] 02/14/2023 Encounter Status:Closed by JUSTINE GAMING on 10/19/23 Normal [facility] Absolute lymphocyte countOrd ered By: Asuncion Larios on 08-01-2023 Lymphocytes Auto (Unsp spec) [#/Vol] 1.79 10*3/uL 0.83-4.51 [facility] Automated lymphocyte count a s percentage of total leukocytesOrdered By: Asuncion Larios on 08-01-2023 Lymphocytes/100 WBC Auto (Unsp spec) 26.9 % 19-41 [facility] Basophil percentageOrdered B y: Asuncion Larios on 08-01-2023 Basophils/100 WBC (Bld) 0.8 % 0-1 [facility] Bilirubin [Mass/Vol] 1.10 mg/dL 0.20-1.00 [facility] Comment on above: For patients on eltr ombopag therapy, use of Dimension [place] TBIL is not recommended. Chloride [Moles/Vol] 107 mmol/L 98-107 [facility] Eosinophils/100 WBC (Bld) 2.7 % 0-5 [facility] Glucose [Mass/Vol] 87 mg/dL 74-106 [facility] Hemoglobin (Bld) [Mass/Vol] 10.1 g/dL 13.0-16.5 [facility] Monocytes/100 WBC (Bld) 14.0 % 0-10 [facility] Neutrophils (Bld) [#/Vol] 3.7 10*3/uL 2.0-7.7 [facility] Neutrophils/100 WBC (Bld) 55.1 % 47-70 [facility] Potassium [Moles/Vol] 3.8 mmol/L 3.5-5.1 [facility] Protein [Mass/Vol] 6.7 g/dL 6.4-8.2 [facility] Sodium [Moles/Vol] 140 mmol/L 136-145 [facility] WBC (Bld) [#/Vol] 6.7 10*3/uL 4.4-11.0 [facility] Determination of erythrocyte mean corpuscular volume (MCV)Ordered By: Asuncion Larios on 08-01-2023 MCV (RBC) [Entitic vol] 86.5 fL 80-94 [facility] Erythrocyte distribution wid th ratioOrdered By: Asuncion Larios on 08-01-2023 Erythrocyte distribution width (RBC) [Ratio] 19.4 % 11.6-14.6 [facility] Erythrocyte distribution wid th standard deviationOrdered By: Asuncion Larios on 08-01-2023 Erythrocyte distribution width (RBC) [Entitic vol] 60.0 fL 35.1-43.9 [facility] Hematocrit Auto (Bld) [Volum e fraction]Ordered By: Asuncion Larios on 08-01-2023 Hematocrit (Bld) [Volume fraction] 32.8 % 40-54 [facility] Immature granulocytes/100 WB C Auto (Bld)Ordered By: [facility] Harriet on 08-01-2023 Immature granulocytes/100 WBC (Bld) 0.500 % 0.0-0.9 [facility] Comment on above: IG% - Immature Granu locytes (promyelocytes, myelocytes and metamyelocytes) > 1% indicates that a LEFT SHIFT is Present. Laboratory - Chemistry and C hemistry - challengeOrdered By: [facility] Harriet on 08-01-2023 Albumin/Globulin [Mass ratio] 1.0 {ratio} 0.9-2.4 [facility] ALP [Catalytic activity/Vol] 81 U/L 45-117 [facility] ALT [Catalytic activity/Vol] 14 U/L 16-61 [facility] CO2 [Moles/Vol] 31.0 mmol/L 21.0-32.0 [facility] Globulin (S) [Mass/Vol] 3.4 g/dL 2.2-4.2 [facility] Urea nitrogen/Creatinine [Mass ratio] 17.0 mg/mg 10-20 [facility] Laboratory - Hematology and Cell countsOrdered By: Asuncionchirag Larios on 08-01-2023 MCH (RBC) [Entitic mass] 26.6 pg 27.0-32.0 [facility] MCHC (RBC) [Mass/Vol] 30.8 g/dL 32-36 [facility] Nucleated RBC/100 WBC (Bld) [Ratio] 0 % 0-5 [facility] [place] mean volume (Bld) [Entitic vol] 12.9 fL 6.2-12.0 [facility] Platelets (Bld) [#/Vol] 165 10*3/uL 150-450 [facility] No Panel InformationOrdered By: Asuncion Larios on 08-01-2023 Estimated GFR (MDRD) Amer 66 mL/min >60 [facility] Comment on above: GFR Calc Estimated GFR (MDRD) Non-Af Amer 55 mL/min >60 [facility] Comment on above: Non- GFR Calc RBC Auto (Bld) [#/Vol]Ordere d By: Asuncion Larios on 08-01-2023 RBC (Bld) [#/Vol] 3.79 10*6/uL 4.6-6.2 [facility] Serum or plasma calcium desmond urement (mass/volume)Ordered By: Asuncion Larios on 08-01-2023 Calcium [Mass/Vol] 8.7 mg/dL 8.5-10.1 [facility] Serum or plasma creatinine m easurement (mass/volume)Ordered By: Asuncion Larios on 08-01-2023 Creatinine [Mass/Vol] 1.35 mg/dL 0.70-1.30 [facility] Comment on above: The validity of the calculated GFR & GFRAA in patients over 70 years has not been determined. Clinical correlation is essential. Serum or plasma urea nitroge n measurement (mass/volume)Ordered By: Asuncion Larios on 08-01-2023 Urea nitrogen [Mass/Vol] 23 mg/dL 7-18 [facility] Thin prep Papanicolaou smear with manual screeningOrdered By: Asuncion Larios on 08-01-2023 Thin prep Papanicolaou smear with manual screening 3.3 g/dL 3.2-5.0 [facility] Thin prep Papanicolaou smear with manual screening 20 U/L 15-37 [facility] Thin prep Papanicolaou smear with manual screening 2 5-15 [facility] Absolute lymphocyte countOrd ered By: Ajit Angel on 07-16-2023 Lymphocytes Auto (Unsp spec) [#/Vol] 1.22 10*3/uL 0.83-4.51 [facility] Automated lymphocyte count a s percentage of total leukocytesOrdered By: Ajit Angel on 07-16-2023 Lymphocytes/100 WBC Auto (Unsp spec) 15.1 % 19-41 [facility] Basophil percentageOrdered B y: Ajit Angel on 07-16-2023 Basophils/100 WBC (Bld) 0.5 % 0-1 [facility] Chloride [Moles/Vol] 102 mmol/L 98-107 [facility] Eosinophils/100 WBC (Bld) 0.5 % 0-5 [facility] Glucose [Mass/Vol] 126 mg/dL 74-106 [facility] Comment on above: Fasting Glucose resu lt greater than or equal to 126 mg/dL suggests DIABETES MELLITUS per A.D.A. criteria. Hemoglobin (Bld) [Mass/Vol] 11.0 g/dL 13.0-16.5 [facility] Monocytes/100 WBC (Bld) 15.5 % 0-10 [facility] Neutrophils (Bld) [#/Vol] 5.5 10*3/uL 2.0-7.7 [facility] Neutrophils/100 WBC (Bld) 67.9 % 47-70 [facility] Potassium [Moles/Vol] 3.5 mmol/L 3.5-5.1 [facility] Comment on above: Slight Hemolysis, Re sult may be falsely increased. Sodium [Moles/Vol] 137 mmol/L 136-145 [facility] WBC (Bld) [#/Vol] 8.1 10*3/uL 4.4-11.0 [facility] Blood manual differential co mment interpretation (narrative result)Ordered By: Ajit Angel on 07-16-2023 Manual differential comment Augustine (Bld) [Interp] SCANNED [facility] Determination of erythrocyte mean corpuscular volume (MCV)Ordered By: Ajit Angel on 07-16-2023 MCV (RBC) [Entitic vol] 86.6 fL 80-94 [facility] Erythrocyte distribution wid th ratioOrdered By: Ajit Angel on 07-16-2023 Erythrocyte distribution width (RBC) [Ratio] 19.2 % 11.6-14.6 [facility] Erythrocyte distribution wid th standard deviationOrdered By: Ajit Angel on 07-16-2023 Erythrocyte distribution width (RBC) [Entitic vol] 58.8 fL 35.1-43.9 [facility] Hematocrit Auto (Bld) [Volum e fraction]Ordered By: Ajit Angel on 07-16-2023 Hematocrit (Bld) [Volume fraction] 34.8 % 40-54 [facility] Immature granulocytes/100 WB C Auto (Bld)Ordered By: Ajit Angel on 07-16-2023 Immature granulocytes/100 WBC (Bld) 0.500 % 0.0-0.9 [facility] Comment on above: IG% - Immature Granu locytes (promyelocytes, myelocytes and metamyelocytes) > 1% indicates that a LEFT SHIFT is Present. Laboratory - Chemistry and C hemistry - challengeOrdered By: Ajit Angel on 07-16-2023 CO2 [Moles/Vol] 30.0 mmol/L 21.0-32.0 [facility] Natriuretic peptide B (Bld) [Mass/Vol] 398.9 pg/mL 0-100 [facility] Urea nitrogen/Creatinine [Mass ratio] 14.0 mg/mg 10-20 [facility] Laboratory - Hematology and Cell countsOrdered By: Ajit Angel on 07-16-2023 MCH (RBC) [Entitic mass] 27.4 pg 27.0-32.0 [facility] MCHC (RBC) [Mass/Vol] 31.6 g/dL 32-36 [facility] Nucleated RBC/100 WBC (Bld) [Ratio] 0 % 0-5 [facility] Platelet mean volume (Bld) [Entitic vol] 12.1 fL 6.2-12.0 [facility] Platelets (Bld) [#/Vol] 162 10*3/uL 150-450 [facility] Laboratory - Microbiology an d Antimicrobial susceptibilityOrdered By: Ajit Angel on 07-16-2023 SARS-CoV-2 (COVID-19) RNA ASHLY+probe Ql (Unsp spec) RSV [facility] No Panel InformationOrdered By: Ajit Angel on 07-16-2023 Troponin I High Sensitivity 274 pg/mL 3.0-78.0 [facility] Comment on above: Critical Result(s) C alled at: 10:02:58 07/16/2023 by: Karen Lea. Results read back by same. Please Note: New Test Units and Gender Specific Reference Ranges. For more information see Policy Stat Procedure [place] High Sensitivity Troponin (TNIH) and attachments. Estimated GFR (MDRD) Amer 75 mL/min >60 [facility] Comment on above: GFR Calc Estimated GFR (MDRD) Non-Af Amer 62 mL/min >60 [facility] Comment on above: Non- GFR Calc Reactive Lymphocytes 1+ [facility] RBC Auto (Bld) [#/Vol]Ordere d By: Ajit Angel on 07-16-2023 RBC (Bld) [#/Vol] 4.02 10*6/uL 4.6-6.2 [facility] Serum or plasma calcium desmond urement (mass/volume)Ordered By: Ajit Angel on 07-16-2023 Calcium [Mass/Vol] 8.8 mg/dL 8.5-10.1 [facility] Serum or plasma creatinine m easurement (mass/volume)Ordered By: Ajit Angel on 07-16-2023 Creatinine [Mass/Vol] 1.21 mg/dL 0.70-1.30 [facility] Comment on above: The validity of the calculated GFR & GFRAA in patients over 70 years has not been determined. Clinical correlation is essential. Serum or plasma urea nitroge n measurement (mass/volume)Ordered By: Ajit Angel on 07-16-2023 Urea nitrogen [Mass/Vol] 17 mg/dL 7-18 [facility] Thin prep Papanicolaou smear with manual screeningOrdered By: Ajit Angel on 07-16-2023 Thin prep Papanicolaou smear with manual screening 5 5-15 [facility] Laboratory - Microbiology an d Antimicrobial susceptibilityOrdered By: Nohemi Hunter on 05-26-2023 SARS-CoV-2 (COVID-19) RNA ASHLY+probe Ql (Unsp spec) [facility] SARS-CoV-2 (COVID-19) RNA ASHLY+probe Ql (Unsp spec) [facility] Absolute lymphocyte countOrd ered By: Asuncion Larios on 04-28-2023 Lymphocytes Auto (Unsp spec) [#/Vol] 1.62 10*3/uL 0.83-4.51 [facility] Automated lymphocyte count a s percentage of total leukocytesOrdered By: Asuncion Larios on 04-28-2023 Lymphocytes/100 WBC Auto (Unsp spec) 20.1 % 19-41 [facility] Basophil percentageOrdered B y: Asuncion Larios on 04-28-2023 Basophils/100 WBC (Bld) 0.9 % 0-1 [facility] Bilirubin [Mass/Vol] 0.70 mg/dL 0.20-1.00 [facility] Comment on above: For patients on eltr ombopag therapy, use of Dimension [place] TBIL is not recommended. Chloride [Moles/Vol] 106 mmol/L 98-107 [facility] Eosinophils/100 WBC (Bld) 2.0 % 0-5 [facility] Glucose [Mass/Vol] 108 mg/dL 74-106 [facility] Comment on above: Fasting Glucose resu lt from 100 to 125 mg/dL suggests IMPAIRED HOMEOSTASIS per A.D.A. criteria. Hemoglobin (Bld) [Mass/Vol] 9.9 g/dL 13.0-16.5 [facility] Monocytes/100 WBC (Bld) 18.2 % 0-10 [facility] Neutrophils (Bld) [#/Vol] 4.7 10*3/uL 2.0-7.7 [facility] Neutrophils/100 WBC (Bld) 58.4 % 47-70 [facility] Potassium [Moles/Vol] 3.6 mmol/L 3.5-5.1 [facility] Protein [Mass/Vol] 6.6 g/dL 6.4-8.2 [facility] Sodium [Moles/Vol] 139 mmol/L 136-145 [facility] WBC (Bld) [#/Vol] 8.1 10*3/uL 4.4-11.0 [facility] Determination of erythrocyte mean corpuscular volume (MCV)Ordered By: Asuncion Larios on 04-28-2023 MCV (RBC) [Entitic vol] 90.2 fL 80-94 [facility] Erythrocyte distribution wid th ratioOrdered By: Asuncion Larios on 04-28-2023 Erythrocyte distribution width (RBC) [Ratio] 15.5 % 11.6-14.6 [facility] Erythrocyte distribution wid th standard deviationOrdered By: Asuncion Larios on 04-28-2023 Erythrocyte distribution width (RBC) [Entitic vol] 51.0 fL 35.1-43.9 [facility] Hematocrit Auto (Bld) [Volum e fraction]Ordered By: Asuncion Larios on 04-28-2023 Hematocrit (Bld) [Volume fraction] 33.3 % 40-54 [facility] Immature granulocytes/100 WB C Auto (Bld)Ordered By: Asuncion Larios on 04-28-2023 Immature granulocytes/100 WBC (Bld) 0.400 % 0.0-0.9 [facility] Comment on above: IG% - Immature Granu locytes (promyelocytes, myelocytes and metamyelocytes) > 1% indicates that a LEFT SHIFT is Present. Laboratory - Chemistry and C hemistry - challengeOrdered By: Asuncion Larios on 04-28-2023 Albumin/Globulin [Mass ratio] 1.1 {ratio} 0.9-2.4 [facility] ALP [Catalytic activity/Vol] 70 U/L 45-117 [facility] ALT [Catalytic activity/Vol] 18 U/L 16-61 [facility] CO2 [Moles/Vol] 28.0 mmol/L 21.0-32.0 [facility] Globulin (S) [Mass/Vol] 3.2 g/dL 2.2-4.2 [facility] Urea nitrogen/Creatinine [Mass ratio] 15.1 mg/mg 10-20 [facility] Laboratory - Hematology and Cell countsOrdered By: Asuncion Larios on 04-28-2023 MCH (RBC) [Entitic mass] 26.8 pg 27.0-32.0 [facility] MCHC (RBC) [Mass/Vol] 29.7 g/dL 32-36 [facility] Nucleated RBC/100 WBC (Bld) [Ratio] 0 % 0-5 [facility] Platelets (Bld) [#/Vol] 225 10*3/uL 150-450 [facility] No Panel InformationOrdered By: Asuncion Larios on 04-28-2023 Estimated GFR (MDRD) Amer 77 mL/min >60 [facility] Comment on above: GFR Calc Estimated GFR (MDRD) Non-Af Amer 63 mL/min >60 [facility] Comment on above: Non- GFR Calc Platelet mean volume Akin-Ec ker (Bld) [Entitic vol]Ordered By: Asuncion Larios on 04-28-2023 Platelet mean volume (Bld) [Entitic vol] 12.7 fL 6.2-12.0 [facility] RBC Auto (Bld) [#/Vol]Ordere d By: Asuncion Larios on 04-28-2023 RBC (Bld) [#/Vol] 3.69 10*6/uL 4.6-6.2 [facility] Serum or plasma calcium desmond urement (mass/volume)Ordered By: Asuncion Larios on 04-28-2023 Calcium [Mass/Vol] 9.2 mg/dL 8.5-10.1 [facility] Serum or plasma creatinine m easurement (mass/volume)Ordered By: Asuncion Larios on 04-28-2023 Creatinine [Mass/Vol] 1.19 mg/dL 0.70-1.30 [facility] Comment on above: The validity of the calculated GFR & GFRAA in patients over 70 years has not been determined. Clinical correlation is essential. Serum or plasma urea nitroge n measurement (mass/volume)Ordered By: Asuncion Larios on 04-28-2023 Urea nitrogen [Mass/Vol] 18 mg/dL 7-18 [facility] Thin prep Papanicolaou smear with manual screeningOrdered By: Asuncion Larios on 04-28-2023 Thin prep Papanicolaou smear with manual screening 3.4 g/dL 3.2-5.0 [facility] Thin prep Papanicolaou smear with manual screening 18 U/L 15-37 [facility] Thin prep Papanicolaou smear with manual screening 5 5-15 [facility] Absolute lymphocyte countOrd ered By: Jimbo Aquino on 03-27-2023 Lymphocytes Auto (Unsp spec) [#/Vol] 1.11 10*3/uL 0.83-4.51 [facility] Basophil percentageOrdered B y: Jimbo Aquino on 03-27-2023 Basophils/100 WBC (Bld) 0.8 % 0-1 [facility] Chloride [Moles/Vol] 105 mmol/L 98-107 [facility] Eosinophils/100 WBC (Bld) 1.8 % 0-5 [facility] Glucose [Mass/Vol] 107 mg/dL 74-106 [facility] Comment on above: Fasting Glucose resu lt from 100 to 125 mg/dL suggests IMPAIRED HOMEOSTASIS per A.D.A. criteria. Neutrophils (Bld) [#/Vol] 4.2 10*3/uL 2.0-7.7 [facility] Neutrophils/100 WBC (Bld) 64.6 % 47-70 [facility] Potassium [Moles/Vol] 3.5 mmol/L 3.5-5.1 [facility] Sodium [Moles/Vol] 140 mmol/L 136-145 [facility] WBC (Bld) [#/Vol] 6.5 10*3/uL 4.4-11.0 [facility] Blood erythrocytes count (nu mber/volume)Ordered By: Jimbo Aquino on 03-27-2023 RBC (Bld) [#/Vol] 3.29 10*6/uL 4.6-6.2 [facility] Blood hemoglobin measurement (mass/volume)Ordered By: Jimbo Aquino on 03-27-2023 Hemoglobin (Bld) [Mass/Vol] 9.3 g/dL 13.0-16.5 [facility] Blood lymphocytes/100 leukoc ytesOrdered By: Jimbo Aquino on 03-27-2023 Lymphocytes/100 WBC (Bld) 17.0 % 19-41 [facility] Blood monocytes/100 leukocyt esOrdered By: Jimbo Aquino on 03-27-2023 Monocytes/100 WBC (Bld) 15.3 % 0-10 [facility] Blood platelet mean volumeOr dered By: Jimbo Aquino on 03-27-2023 Platelet mean volume (Bld) [Entitic vol] 11.2 fL 6.2-12.0 [facility] Determination of erythrocyte mean corpuscular volume (MCV)Ordered By: Jimbo Aquino on 03-27-2023 MCV (RBC) [Entitic vol] 93.0 fL 80-94 [facility] Hematocrit Auto (Bld) [Volum e fraction]Ordered By: Jimbo Aquino on 03-27-2023 Hematocrit (Bld) [Volume fraction] 30.6 % 40-54 [facility] Laboratory - Chemistry and C hemistry - challengeOrdered By: Jimbo Aquino on 03-27-2023 CO2 [Moles/Vol] 30.0 mmol/L 21.0-32.0 [facility] Magnesium [Mass/Vol] 2.2 mg/dL 1.6-2.6 [facility] Urea nitrogen/Creatinine [Mass ratio] 11.9 mg/mg 10-20 [facility] Laboratory - Hematology and Cell countsOrdered By: Jimbo Aquino on 03-27-2023 Erythrocyte distribution width (RBC) [Entitic vol] 50.0 fL 35.1-43.9 [facility] Erythrocyte distribution width (RBC) [Ratio] 14.9 % 11.6-14.6 [facility] Immature granulocytes/100 WBC (Bld) 0.500 % 0.0-0.9 [facility] Comment on above: IG% - Immature Granu locytes (promyelocytes, myelocytes and metamyelocytes) > 1% indicates that a LEFT SHIFT is Present. MCH (RBC) [Entitic mass] 28.3 pg 27.0-32.0 [facility] Nucleated RBC/100 WBC (Bld) [Ratio] 0 % 0-5 [facility] MCHC Auto (RBC) [Mass/Vol]Or dered By: Jimbo Aquino on 03-27-2023 MCHC (RBC) [Mass/Vol] 30.4 g/dL 32-36 [facility] No Panel InformationOrdered By: Jimbo Aquino on 03-27-2023 Estimated Creatinine Clearance Calc 60.54 ml/min [facility] Estimated GFR (MDRD) Amer 72 mL/min >60 [facility] Comment on above: GFR Calc Estimated GFR (MDRD) Non-Af Amer 59 mL/min >60 [facility] Comment on above: Non- GFR Calc Platelets bldOrdered By: Tylor Aquino on 03-27-2023 Platelets (Bld) [#/Vol] 222 10*3/uL 150-450 [facility] Serum or plasma calcium desmond urement (mass/volume)Ordered By: Jimbo Aquino on 03-27-2023 Calcium [Mass/Vol] 9.1 mg/dL 8.5-10.1 [facility] Serum or plasma creatinine m easurement (mass/volume)Ordered By: Jimbo Aquino on 03-27-2023 Creatinine [Mass/Vol] 1.26 mg/dL 0.70-1.30 [facility] Comment on above: The validity of the calculated GFR & GFRAA in patients over 70 years has not been determined. Clinical correlation is essential. Serum or plasma urea nitroge n measurement (mass/volume)Ordered By: Jimbo Aquino on 03-27-2023 Urea nitrogen [Mass/Vol] 15 mg/dL 7-18 [facility] Thin prep Papanicolaou smear with manual screeningOrdered By: Jimbo Aquino on 03-27-2023 Thin prep Papanicolaou smear with manual screening 5 5-15 [facility] Absolute lymphocyte countOrd ered By: Chelita Bonilla on 03-15-2023 Lymphocytes Auto (Unsp spec) [#/Vol] 1.62 10*3/uL 0.83-4.51 [facility] Basophil percentageOrdered B y: Chelita Bonilla on 03-15-2023 Basophils/100 WBC (Bld) 0.5 % 0-1 [facility] Chloride [Moles/Vol] 107 mmol/L 98-107 [facility] Eosinophils/100 WBC (Bld) 2.1 % 0-5 [facility] Glucose [Mass/Vol] 104 mg/dL 74-106 [facility] Comment on above: Fasting Glucose resu lt from 100 to 125 mg/dL suggests IMPAIRED HOMEOSTASIS per A.D.A. criteria. Neutrophils (Bld) [#/Vol] 4.7 10*3/uL 2.0-7.7 [facility] Neutrophils/100 WBC (Bld) 61.7 % 47-70 [facility] Potassium [Moles/Vol] 4.1 mmol/L 3.5-5.1 [facility] Sodium [Moles/Vol] 138 mmol/L 136-145 [facility] WBC (Bld) [#/Vol] 7.7 10*3/uL 4.4-11.0 [facility] Blood erythrocytes count (nu mber/volume)Ordered By: Chelita Bonilla on 03-15-2023 RBC (Bld) [#/Vol] 2.89 10*6/uL 4.6-6.2 [facility] Blood hemoglobin measurement (mass/volume)Ordered By: Chelita Bonilla on 03-15-2023 Hemoglobin (Bld) [Mass/Vol] 8.6 g/dL 13.0-16.5 [facility] Blood lymphocytes/100 leukoc ytesOrdered By: Chelita Bonilla on 03-15-2023 Lymphocytes/100 WBC (Bld) 21.1 % 19-41 [facility] Blood monocytes/100 leukocyt esOrdered By: Chelita Bonilla on 03-15-2023 Monocytes/100 WBC (Bld) 13.8 % 0-10 [facility] Blood platelet mean volumeOr dered By: Chelita Bonilla on 03-15-2023 Platelet mean volume (Bld) [Entitic vol] 11.6 fL 6.2-12.0 [facility] Determination of erythrocyte mean corpuscular volume (MCV)Ordered By: Chelita Bonilla on 03-15-2023 MCV (RBC) [Entitic vol] 93.8 fL 80-94 [facility] Hematocrit Auto (Bld) [Volum e fraction]Ordered By: Chelita Bonilla on 03-15-2023 Hematocrit (Bld) [Volume fraction] 27.1 % 40-54 [facility] Laboratory - Chemistry and C hemistry - challengeOrdered By: Chelita Bonilla on 03-15-2023 CO2 [Moles/Vol] 26.0 mmol/L 21.0-32.0 [facility] Urea nitrogen/Creatinine [Mass ratio] 11.2 mg/mg 10-20 [facility] Laboratory - Hematology and Cell countsOrdered By: Chelita Bonilla on 03-15-2023 Erythrocyte distribution width (RBC) [Entitic vol] 53.0 fL 35.1-43.9 [facility] Erythrocyte distribution width (RBC) [Ratio] 15.5 % 11.6-14.6 [facility] Immature granulocytes/100 WBC (Bld) 0.800 % 0.0-0.9 [facility] Comment on above: IG% - Immature Granu locytes (promyelocytes, myelocytes and metamyelocytes) > 1% indicates that a LEFT SHIFT is Present. MCH (RBC) [Entitic mass] 29.8 pg 27.0-32.0 [facility] Nucleated RBC/100 WBC (Bld) [Ratio] 0 % 0-5 [facility] MCHC Auto (RBC) [Mass/Vol]Or dered By: Chelita Bonilla on 03-15-2023 MCHC (RBC) [Mass/Vol] 31.7 g/dL 32-36 [facility] No Panel InformationOrdered By: Chelita Bonilla on 03-15-2023 Estimated Creatinine Clearance Calc 71.29 ml/min [facility] Estimated GFR (MDRD) Amer 87 mL/min >60 [facility] Comment on above: GFR Calc Estimated GFR (MDRD) Non-Af Amer 72 mL/min >60 [facility] Comment on above: Non- GFR Calc Platelets bldOrdered By: Monica Bonilla on 03-15-2023 Platelets (Bld) [#/Vol] 135 10*3/uL 150-450 [facility] Serum or plasma calcium desmond urement (mass/volume)Ordered By: Chelita Bonilla on 03-15-2023 Calcium [Mass/Vol] 8.6 mg/dL 8.5-10.1 [facility] Serum or plasma creatinine m easurement (mass/volume)Ordered By: Chelita Bonilla on 03-15-2023 Creatinine [Mass/Vol] 1.07 mg/dL 0.70-1.30 [facility] Comment on above: The validity of the calculated GFR & GFRAA in patients over 70 years has not been determined. Clinical correlation is essential. Serum or plasma urea nitroge n measurement (mass/volume)Ordered By: Chelita Bonilla on 03-15-2023 Urea nitrogen [Mass/Vol] 12 mg/dL 7-18 [facility] Thin prep Papanicolaou smear with manual screeningOrdered By: Chelita Bonilla on 03-15-2023 Thin prep Papanicolaou smear with manual screening 5 5-15 [facility] Basophil percentageOrdered B y: Timur Dick on 03-13-2023 Bilirubin [Mass/Vol] 1.00 mg/dL 0.20-1.00 [facility] Comment on above: For patients on eltr ombopag therapy, use of Dimension [place] TBIL is not recommended. Protein [Mass/Vol] 5.5 g/dL 6.4-8.2 [facility] Direct bilirubinOrdered By: Timur Dick on 03-13-2023 Bilirubin.direct [Mass/Vol] 0.26 mg/dL 0.00-0.30 [facility] INR in Blood by Coagulation assayOrdered By: Timur Dick on 03-13-2023 INR Coag (Bld) [Relative time] 1.2 {INR} [facility] Laboratory - Chemistry and C hemistry - challengeOrdered By: Timur Dick on 03-13-2023 ALP [Catalytic activity/Vol] 47 U/L 45-117 [facility] ALT [Catalytic activity/Vol] 10 U/L 16-61 [facility] Globulin (S) [Mass/Vol] 2.6 g/dL 2.2-4.2 [facility] Laboratory - CoagulationOrde red By: Timur Dick on 03-13-2023 aPTT Coag (Bld) [Time] 36.9 s 24.1-36.2 [facility] PT Coag (PPP) [Time] 15.1 s 11.7-14.9 [facility] Serum or plasma albumin desmond urement (mass/volume)Ordered By: Timur Dick on 03-13-2023 Albumin [Mass/Vol] 2.9 g/dL 3.2-5.0 [facility] Thin prep Papanicolaou smear with manual screeningOrdered By: Timur Dick on 03-13-2023 Thin prep Papanicolaou smear with manual screening 12 U/L 15-37 [facility] Serum or plasma albumin/glob ulin mass ratioOrdered By: Hugo Romo on 03-12-2023 Albumin/Globulin [Mass ratio] 1.1 {ratio} 0.9-2.4 [facility] CNPNon 03-04-2023 ISABELLEN Telephone ([email or web address]) BRANDON KULKARNI ([id number]) 1945 Date Time Provider Department 03/04/23 SAMUEL CONTRERAS During your visit today, we recorded the following information about you: Samuel Contreras MD 03/04/2023 4:14 PM Signed FOLLOW UP ENDOSCOPY - RESULTS AND RECOMMENDATIONS NAME: Brandon Kulkarni CLINIC NO.: [id number] : 1945 DATE: March 04, 2023 PRIMARY CARE PROVIDER: [facility] REFERRING PHYSICIAN: Chelita Oliveira Brandon Kulkarni is a patient referred for endoscopy [...] the patient and to the appropriate providers Rosalie Narvaez LPN 03/07/2023 2:13 PM Signed Updated patient via mail, HM, history, recall letter done. Rosalie ELZBIETA Narvaez Allergies As of Date: 03/04/2023 Noted Allergy Reaction KEITH INHIBITORS 11/05/2015 10 - Anaphylaxis ATORVASTATIN 04/17/2019 16 - Unknown LISINOPRIL 11/05/2015 7 - Swelling PENICILLIN 11/05/2015 2 - Rash Date Reviewed: 03/02/2023 Reviewed by: Lilly Alcaraz RN - Fully Assessed Reason for Visit: Results [95] Prescriptions as of 03/22/2023 - ferrous gluconate 324 mg (37.5 mg iron) tablet Take 324 mg by mouth once daily. - aspirin, enteric coated (ASPIRIN, ENTERIC COATED) 81 mg EC tablet Take 81 mg by mouth once daily. - gabapentin (NEURONTIN) 100 mg capsule Take 100 mg by mouth two times a day. - predniSONE (DELTASONE) 10 mg tablet 10 mg as needed. - methotrexate 2.5 mg tablet 15 mg. - MULTIVITAMIN ORAL TAKE 1 CAPSULE BY MOUTH TWICE A DAY FOR MACULAR DEGENERATION - allopurinol (ZYLOPRIM) 100 mg tablet 100 mg once daily. - acetaminophen (TYLENOL) 325 mg tablet TAKE ONE TO TWO TABLETS BY MOUTH FOUR TIMES A DAY NEEDED FOR PAIN. - doxazosin (CARDURA) 1 mg tablet Take 1 tablet by mouth every morning. - cholecalciferol (VITAMIN D3) 50 mcg (2,000 unit) tablet Take 1 tablet by mouth once daily. - folic acid 1 mg tablet Take 2 tablets by mouth once daily. - metoprolol succinate ER (TOPROL XL) 50 mg 24 hr tablet Take 1 tablet by mouth twice daily. - colchicine 0.6 mg tablet Take by mouth. - isosorbide dinitrate (ISORDIL) 30 mg tablet Take 1 tablet by mouth three times daily. - rosuvastatin (CRESTOR) 20 mg tablet Take 20 mg by mouth once daily. - fluticasone prp-sod.chl,bicarb 50 mcg- 0.9 % ksps Use 50 mcg in the nose once daily. - PEG 2274-Nwtdlckzovv-Tly C (MOVIPREP) 100-7.5-2.691 gram Take by mouth one time only. Will take for colon prep - amLODIPine-benazepril (LOTREL) 5-10 mg per capsule Take 1 capsule by mouth. - Carboxymethylcellulose- Glycern (OPTIVE) 0.5-0.9 % drop Use in eyes. - cyclobenzaprine (FLEXERIL) 10 mg tablet Take 10 mg by mouth. - diclofenac sodium (VOLTAREN) 1 % topical gel Apply to affected area. - ferrous sulfate 325 mg (65 mg iron) tablet Take 325 mg by mouth. - furosemide (LASIX) 40 mg tablet Take 40 mg by mouth. - hydrALAZINE (APRESOLINE) 10 mg tablet Take 10 mg by mouth. - pantoprazole DR (PROTONIX) 40 mg tablet Take 40 mg by mouth. - potassium chloride ER (K-DUR, KLOR-CON) 10 mEq tablet Take 10 mEq by mouth. - SODIUM CHLORIDE OPHTHALMIC Use in eyes. - (more content not included)... [facility] 03-02-2023 [facility] HNO ID: [id number] Author: Jeanine Edward V, RT(R) Service: Radiology Author Type: Technologist Type: Allied Health Filed: 03/02/2023 9:20 AM Note Text: Radiology Service Progress Note PATIENT NAME: Brandon Kulkarni DATE OF SERVICE: March 02, 2023 TIME: 9:19 AM PATIENT IDENTITY VERIFICATION COMPLETED USING TWO (2) IDENTIFIERS: Name and Date of confirmed by patient verbally and Name and Date of confirmed by identification band. FALL SCREENING: Has the patient had 2 falls in the last year or 1 fall with injury or currently using an Ambulatory Assistive Device (Walker, Cane, Wheelchair, Crutches, etc.)? No PATIENT GENDER DATA: Male PATIENT RELEVANT IMPLANT DATA REVIEWED: Not Applicable RADIOLOGY DEPARTMENT: General X-ray: Exam(s) Completed: Abdomen X-Ray: Abdomen PERIPHERAL IV DATA: Not applicable SIGNED BY: RT Keila(R) March 02, 2023 9:19 AM [facility] POSTPROC EVAL HNO ID: [id number] Author: Nohemi Tejeda MD Service: Anesthesiology Author Type: Anesthesiologist Type: Anesthesia Postprocedure Evaluation Filed: 03/02/2023 9:56 AM Note Text: POST ANESTHESIA EVALUATION NOTE : 1945 Procedure Summary Date: 03/02/23 Room / Location: [facility] Endoscopy Anesthesia Start: 724 Anesthesia Stop: 840 Procedure: COLONOSCOPY SCREENING Diagnosis: History of colonic polyps Family history of colon cancer (High risk colon cancer surveillance: Personal history of colonic polyps) Scheduled Providers: Samuel Contreras MD; Lawanda Clarke APRN.ACID CORRECTION HAND; Nohemi Tejeda MD Responsible Provider: Nohemi Tejeda MD Anesthesia Type: MAC ASA Status: 3 Anesthesia Type: MAC Last Vitals Vitals Value Taken Time BP 132/65 03/02/23 0901 Temp 36.9 ?C (98.4 ?F) 03/02/23 0839 Pulse 60 03/02/23 0911 Resp 21 03/02/23 0911 SpO2 99 % 03/02/23 09 Vitals shown include unvalidated device data. Post Anesthesia Patient Status Patient Evaluation: PACU. PACU/ICU Patient Condition: stable. Anticipated Disposition: phase 2 then home. Neurological Status: aware and responsive. Pulmonary Status: breathing comfortably on room air Airway Control: returned to baseline unsupported. Cardiovascular Status: stable. Pain Management: clinically adequate - multimodal analgesia pain management approach Postoperative Hydration: acceptable. Intraoperative Events: no significant anesthesia events Post Operative Nausea/Vomiting Status: no significant post operative nausea or vomiting Recommendation: continue current plan of care. Anesthesia Observations No Documentation SIGNATURE: Nohemi Tejeda MD PATIENT NAME: Brandon Kulkarni DATE: March 02, 2023 TIME: 9:56 AM CSN: [id number] Normal [facility] ANES PRE-OPon 03-02-2023 ANES PRE-OP HNO ID: [id number] Author: Nohemi Tejeda MD Service: Anesthesiology Author Type: Anesthesiologist Type: Anesthesia Preprocedure Evaluation Filed: 03/02/2023 7:13 AM Note Text: ANESTHESIOLOGY DAY OF SURGERY NOTE : 1945 Procedure Information Date/Time: 03/02/2330 Scheduled providers: Samuel Contreras MD; Lawanda Clarke APRN.ACID CORRECTION HAND; Nohemi Tejeda MD Procedure: COLONOSCOPY SCREENING Location: [facility] Endoscopy Estimated body mass index is 31.87 kg/m? as calculated from the following: Height as of 02/14/23: 190.5 cm (6' 3). Weight as of 02/14/23: 115.7 kg (255 lb). Most recent hematocrit and potassium results: Hematocrit 44.4 11/28/2015 Potassium 4.6 11/28/2015 Relevant Problems CARDIO (+) Chronic a-fib (HCC) (+) Coronary artery disease involving upper [place] coronary artery of upper [place] heart without angina pectoris (+) Essential hypertension GI (+) Gastroesophageal reflux disease without esophagitis NEURO-PSYCH (+) History of pacemaker Other (+) Rheumatoid arthritis, unspecified (HCC) I - PHYSICAL EVALUATION AIRWAY Patient intubated: No. Tracheostomy tube not present Mallampati: II. TM distance: >3 FB. Neck ROM: full ROM without neurological symptoms. Mouth opening: adequate. Short neck: no. Thick neck: no DENTAL Dentures, upper: complete. Dentures, lower: complete. Additional exam findings: yes. CARDIOVASCULAR Rhythm: irregular Rate: abnormal PULMONARY Breath sounds clear to auscultation. ABDOMINAL Obese: obesity present. II - ANESTHESIA PLAN ASA Score: 3 Anesthetic Plan: MAC The patient is not a current smoker. NPO Status: adequate Beta Rufino Monitoring Plan Monitoring plan: standard ASA. Post Procedure Analgesic Plan Postoperative analgesic plan: multimodal analgesia. Informed Consent Anesthetic risks, benefits, alternatives, personnel and consent discussed: yes. Patient / Responsible Alliance Party agrees to proceed: yes Patient / Surrogate agrees to blood products: blood products not planned DNR status not reviewed with patient and/or family prior to surgery. Significant changes in the patient condition since the History and Physical, not otherwise documented in primary service progress note: no. Potential Anesthesia issues that may suggest increased risk of complications or contraindication to planned procedure: none. No vitals data found for the desired time range. Outpatient Medications as of 03/02/2023 Medication Sig - ferrous gluconate 324 mg (37.5 mg iron) tablet Take 324 mg by mouth once daily. - aspirin, enteric coated (ASPIRIN, ENTERIC COATED) 81 mg EC tablet Take 81 mg by mouth once daily. - predniSONE (DELTASONE) 10 mg tablet 10 mg as needed. - allopurinol (ZYLOPRIM) 100 mg tablet 100 mg once daily. - acetaminophen (TYLENOL) 325 mg tablet TAKE ONE TO TWO TABLETS BY MOUTH FOUR TIMES A DAY NEEDED FOR PAIN. - doxazosin (CARDURA) 1 mg tablet Take 1 tablet by mouth every morning. - cholecalciferol (VITAMIN D3) 50 mcg (2,000 unit) tablet Take 1 tablet by mouth once daily. - folic acid 1 mg tablet Take 2 tablets by mouth once daily. - metoprolol succinate ER (TOPROL XL) 50 mg 24 hr tablet Take 1 tablet by mouth twice daily. - rosuvastatin (CRESTOR) 20 mg tablet Take 20 mg by mouth once daily. - PEG 2433-Hojohhuhgzh-Xqh C (MOVIPREP) 100-7.5-2.691 gram Take by mouth one time only. Will take for colon prep - Carboxymethylcellulose- Glycern (OPTIVE) 0.5-0.9 % drop Use in eyes. - furosemide (LASIX) 40 mg tablet Take 40 mg by mouth. - pantoprazole DR (PROTONIX) 40 mg tablet Take 40 mg by mouth. - SODIUM CHLORIDE OPHTHALMIC Use in eyes. - loratadine (CLARITIN) 10 mg tablet Take 10 mg by mouth as needed. - gabapentin (NEURONTIN) 100 mg capsule Take 100 mg by mouth two times a day. - methotrexate 2.5 mg tablet 15 mg. - MULTIVITAMIN ORAL TAKE 1 CAPSULE BY MOUTH TWICE A DAY FOR MACULAR DEGENERATION (Patient not taking: Reported on 02/14/2023) - colchicine 0.6 mg tablet Take by mouth. - isosorbide dinitrate (ISORDIL) 30 mg tablet Take 1 tablet by mouth three times daily. (Patient not taking: Reported on 02/14/2023) - fluticasone prp-sod.chl,bicarb 50 mcg- 0.9 % ksps Use 50 mcg in the nose once daily. (Patient not taking: Reported on 02/14/2023) - amLODIPine-benazepril (LOTREL) 5-10 mg per capsule Take 1 capsule by mouth. (Patient not taking: Reported on 12/22/2022) - cyclobenzaprine (FLEXERIL) 10 mg tablet Take 10 mg by mouth. (Patient not taking: Reported on 12/22/2022) - diclofenac sodium (VOLTAREN) 1 % topical gel Apply to affected area. (Patient not taking: Reported on 02/14/2023) - ferrous sulfate 325 mg (65 mg iron) tablet Take 325 mg by mouth. (Patient not taking: Reported on 02/14/2023) - hydrALAZINE (APRESOLINE) 10 mg tablet Take 10 mg by mouth. (Patient not taking: Reported on 12/22/2022) - potassium chloride ER (K-DUR, KLOR-CON) 10 mEq tablet Take 10 (more content not included)... Normal [facility] Colonoscopyon 03-02-2023 Colonoscopy [facility] Gastrointestinal Endoscopy Patient Name: Brandon Kulkarni Procedure Date: 03/02/2023 7:16 AM Date of : 1945 Admit Type: Outpatient Age: 77 Room: [facility] Gender: Male Note Status: Finalized Attending MD: Samuel Contreras MD Procedure: Colonoscopy Indications: High risk colon cancer surveillance: Personal history of colonic polyps Providers: Samuel Contreras MD Patient Profile: Last Colonoscopy: more than 3 years ago. Referring Physician: Chelita Oliveira (pa) (Referring MD) Medicines: Monitored Anesthesia Care Complications: No immediate complications. Requesting Provider: Procedure: Pre-Anesthesia Assessment: - Prior to the procedure, a History and Physical was performed, and patient medications and allergies were reviewed. The patient is competent. The risks and benefits of the procedure and the sedation options and risks were discussed with the patient. All questions were answered and informed consent was obtained. Patient identification and proposed procedure were verified by the physician, the nurse and the cigarette maker in the procedure room. Mental Status Examination: alert and oriented. Airway Examination: normal oropharyngeal airway and neck mobility. Respiratory Examination: clear to auscultation. CV Examination: normal. Prophylactic Antibiotics: The patient does not require prophylactic antibiotics. Prior Anticoagulants: The patient has taken Eliquis (apixaban), last dose was 2 days prior to procedure. ASA Grade Assessment: III - A patient with severe systemic disease. After reviewing the risks and benefits, the patient was deemed in satisfactory condition to undergo the procedure. The anesthesia plan was to use monitored anesthesia care (MAC). Immediately prior to administration of medications, the patient was re-assessed for adequacy to receive sedatives. The heart rate, respiratory rate, oxygen saturations, blood pressure, adequacy of pulmonary ventilation, and response to care were monitored throughout the procedure. The physical status of the patient was re-assessed after the procedure. After I obtained informed consent, the scope was passed under direct vision. Throughout the procedure, the patient's blood pressure, pulse, and oxygen saturations were monitored continuously. The Colonoscope was introduced through the anus and advanced to the cecum, identified by the appendiceal orifice, ileocecal valve and palpation. The colonoscopy was performed without difficulty. The patient tolerated the procedure well. The quality of the bowel preparation was good. Scope Withdrawal Time: 0 hours 47 minutes 1 second Moderate Sedation: MAC anesthesia was administered by the anesthesia team. Total Procedure Duration: 0 hours 54 minutes 57 seconds Findings: The perianal and digital rectal examinations were normal. An 18 mm polyp was found in the cecum. The polyp was sessile. Polypectomy was attempted, initially using a saline injection-lift technique with a hot snare. Polyp resection was incomplete with this device. This intervention then required a different device and polypectomy technique. The polyp was removed with a piecemeal technique using a hot snare. Resection and retrieval were complete. Area was tattooed with an injection of 3 mL of Fouzia ink. For location marking, one hemostatic clip was successfully placed (MR conditional). There was no bleeding at the end of the procedure. Argon beam for tumor destruction was successfully performed. A small polyp was found in the hepatic flexure. The polyp was sessile. The polyp was removed with a cold biopsy forceps. Resection and retrieval were complete. Four sessile polyps were found in the transverse colon and ascending colon. The polyps were medium in size. These polyps were removed with a hot snare. Resection and retrieval were complete. The exam was otherwise without abnormality on direct and retroflexion views. Impression: - One 18 mm polyp in [...] with a hot snare. Resected and retrieved. Recommendation: - Discharge patient to home. - Resume previous diet. - Continue present medications. - Return to my office in 2 weeks. - Patient has a contact number available for emergencies. The signs and symptoms of potential delayed complications were discussed with the patient. Return to normal activities tomorrow. Written discharge instructions were provided to the patient. - Resume Effient (prasugrel) in 3 days at prior dose. - Repeat colonoscopy is recommended for surv (more content not included)... Normal [facility] HISTORY PHYSICALon HISTORY PHYSICAL HNO ID: [id number] Author: Samuel Contreras MD Service: General Surgery Author Type: Physician Type: HANDP Filed: 03/02/2023 7:18 AM Note Text: HISTORY AND PHYSICAL Brandon Kulkarni 1945 REFERRING PHYSICIAN: Administration, Wilton* CHIEF COMPLAINT: Consult (colonoscopy) HPI: The patient [...] breath or recent hospitalizations. PAST MEDICAL HISTORY PAST MEDICAL HISTORY Diagnosis Date A-fib (HCC) Acid reflux Bursitis of left elbow Diabetes mellitus (HCC) Gout Hyperlipemia Hypertension Knee pain Lumbar spondylosis Lymphocytic colitis Macular degeneration Osteopenia Paroxysmal atrial fibrillation (HCC) Severe scoliosis Spine degeneration lumbar Syncope PAST SURGICAL HISTORY PAST SURGICAL HISTORY Procedure Laterality Date APPENDECTOMY age 12 ARTHRP KNE CONDYLEANDPLATU MEDIALANDLAT COMPARTMENTS 04/04/2010 left CATARACT EXTRACTION W/ INTRAOCULAR LENS IMPLANT HX bilateral COLONOSCOPY 04/04/2009 COLONOSCOPY FLX DX W/COLLJ SPEC WHEN PFRMD 12/10/2015 Colonoscopy (MAC) COLONOSCOPY SCREENING 2019 ESOPHAGOGASTRODUODENOSC OPY TRANSORAL DIAGNOSTIC 12/10/2015 EGD (MAC) CURRENT MEDICATIONS Current Outpatient Medications Medication Sig predniSONE (DELTASONE) 10 mg tablet 10 mg. methotrexate 2.5 mg tablet 15 mg. Carboxymethylcellulose- Glycern (OPTIVE) 0.5-0.9 % drop Use in eyes. [...] current facility-administered medications for this visit. ALLERGIES: Keith Inhibitors, Atorvastatin, Lisinopril, and Penicillin PERSONAL HISTORY: SOCIAL HISTORY Social History Tobacco Use Smoking status: Former Types: Cigarettes Quit date: 11/05/1979 Years since quittin.1 Smokeless tobacco: Never Vaping Use Vaping Use: Never used Substance Use Topics Alcohol use: Not Currently Alcohol/week: 2.0 standard drinks of alcohol Types: 2 Cans of Beer (12oz) per week Drug use: No FAMILY HISTORY: FAMILY HISTORY FAMILY HISTORY Problem Relation Age of Onset Stroke Mother Alzheimer's Disease Mother Colon Cancer Brother Cancer Sister brain Glaucoma No Family History Macular Degen No Family History Detached Retina No Family History REVIEW OF SYMPTOMS: The review of systems data was entered by the nurse and reviewed by nd Nursing Notes: Jackelin Retana RN 12/22/2022 8:46 AM Signed REVIEW OF SYSTEMS: General: The patient denies fatigue, denies weight loss, denies weight gain, den (more content not included)... [facility] NURSING PROGon 03-02-2023 NURSING PROG HNO ID: [id number] Author: Destiny Dunaway RN Service: Nursing Author Type: Registered Nurse Type: Nursing Progress Note Filed: 03/02/2023 9:16 AM Note Text: Xray at bedside for KUB as per orders. Clarification on restarting Eliquis in 3 days at prior dose. D/C procedure note states Effient per Dr. Contreras Eliquis is the medication pt is on [facility] SURGICAL PATHOLOGYon 023 CASE REPORT [facility] Comment on above: Order Comment: Speckylie bray Type: TISSUE SPECIMEN Ordering Facility: [facility] Address: [address] [place] [address] Result Comment: Surg [facility] Pathology Report Case: [id number] Authorizing Provider: Samuel Contreras MD Collected: 03/02/2023 07:40 AM Ordering Location: [facility] Endoscopy Received: 03/02/2023 10:05 AM Pathologist: Héctor Pink MD Specimens: A) - HEPATIC FLEXURE POLYP B) - CECUM POLYP C) - ASCENDING COLON POLYP, Ascending Colon Polyps times 4 D) - TRANSVERSE COLON POLYP Performed By: #### S #### [facility] CLIA [id number] STATES OF [facility] CLIA [id number] [address] [facility] [address] FINAL DIAGNOSIS [facility] Comment on above: Order Comment: Genevieve bray Type: TISSUE SPECIMEN Ordering Facility: [facility] Address: [address] [place] [address] Result Comment: A. H epatic flexure, polypectomy: - Fragments of tubular adenoma. B. Cecum, polypectomy: - Fragments of tubular adenoma. C. Ascending colon, polypectomy: - Fragments of tubular adenoma. D. Transverse colon, polypectomy: - Cauterized colonic mucosa, favor cauterized tubular adenoma. Performed By: #### S #### [facility] CLIA [id number] [address] [place] [address] STATES OF [facility] CLIA [id number] [address] [place] [address] STATES OF [facility] Normal [facility] Comment on above: Order Comment: Speci men Type: TISSUE SPECIMEN Ordering Facility: [facility] Address: [address] [place] [address] Result Comment: Diag nostic interpretation performed at [facility], [address] [place] [address] CLIA# [id number] [facility] Pharmacy Merchandiser: Holly Medina M.D. Performed By: #### S #### [facility] CLIA [id number] [address] [place] [address] LAB CLIA [id number] [address] [place] [address] OF [facility] GROSS DESCRIPTION Normal [facility] Comment on above: Order Comment: Speci men Type: TISSUE SPECIMEN Ordering Facility: [facility] Address: [address] [place] [address] Result Comment: A. H EPATIC FLEXURE POLYP Received in formalin are multiple segments of weeks, soft tissue aggregating to 0.6 x 0.2 x 0.2 cm. Totally submitted in one cassette. B. CECUM POLYP Received in formalin are multiple segments of polypoid weeks soft tissue ranging in size from 0.9 x 0.5 x 0.4 cm to 0.5 x 0.3 x 0.3 cm. No stalks are seen. The largest two polyps are bisected. Also received in the same container are multiple segments of weeks soft tissue aggregating to 2.0 x 1.0 x 0.2 cm. The specimens are totally submitted in formalin as follows, B1 largest two polyps, B2 three smaller polyps, B3 through B8 biopsies. C. ASCENDING COLON POLYP Received in formalin is a single segment of polypoid weeks-pink tissue measuring 1.0 x 0.7 x 0.7 cm. A stalk is seen measuring 0.2 cm in greatest dimension. The specimen is bisected. Also received in the same container are multiple segments of weeks soft tissue aggregating to 1.5 x 0.7 x 0.1 cm. The specimens are totally submitted in formalin as follows, C1 polyps, C2 through C5 biopsies. D. TRANSVERSE COLON POLYP Received in formalin is one piece of weeks, soft tissue measuring 0.3 x 0.2 x 0.2 cm. Also received in the same container are multiple fragments of weeks-green material aggregating to 0.5 x 0.3 x 0.1 cm. Totally submitted in one cassette. JDEMI March 02, 2023 1:57 PM Gross examination performed at [facility], [address] [place] [address] Performed By: #### S #### [facility] CLIA [id number] [address] [place] [address] OF [facility] CLIA [id number] [address] [place] [address] XR ABDOMEN 1V SUPINEon 03-02 XR ABDOMEN 1V SUPINE * * *Final Report* * * DATE OF EXAM: Mar 02 2023 9:18AM MDX [id number] - XR ABDOMEN 1V SUPINE / PROCEDURE REASON: Other * * * * Physician Interpretation * * * * KUB: INDICATION: Clip placement for localization. Cecal polyp TECHNIQUE: XR ABDOMEN 1V SUPINE COMPARISON: FINDINGS/ IMPRESSION: There is a biopsy clip in the right abdomen, 3 cm to the right of the L2-3 disc space. This appears to overlie the gas distended cecum. Bowel gas pattern is nonobstructive. Technical Support Technician: SINCERE Transcribe Date/Time: Mar 03 2023 2:29P Dictated by : CLARISA LEIVA MD This examination was interpreted and the report reviewed and electronically signed by: CLARISA LEIVA MD on Mar 03 2023 2:30PM EST [id number] Normal [facility] Basophil percentageOrdered B y: Joshua Clay on 02-18-2023 Chloride [Moles/Vol] 105 mmol/L 98-107 [facility] Glucose [Mass/Vol] 95 mg/dL 74-106 [facility] Potassium [Moles/Vol] 3.4 mmol/L 3.5-5.1 [facility] Sodium [Moles/Vol] 140 mmol/L 136-145 [facility] WBC (Bld) [#/Vol] 6.4 10*3/uL 4.4-11.0 [facility] Blood erythrocytes count (nu mber/volume)Ordered By: Joshua Clay on 02-18-2023 RBC (Bld) [#/Vol] 3.59 10*6/uL 4.6-6.2 [facility] Blood hemoglobin measurement (mass/volume)Ordered By: Joshua Clay on 02-18-2023 Hemoglobin (Bld) [Mass/Vol] 10.8 g/dL 13.0-16.5 [facility] Blood platelet mean volumeOr dered By: Joshua Clay on 02-18-2023 Platelet mean volume (Bld) [Entitic vol] 10.5 fL 6.2-12.0 [facility] Determination of erythrocyte mean corpuscular volume (MCV)Ordered By: Joshua Clay on 02-18-2023 MCV (RBC) [Entitic vol] 93.3 fL 80-94 [facility] Hematocrit Auto (Bld) [Volum e fraction]Ordered By: Joshua Clay on 02-18-2023 Hematocrit (Bld) [Volume fraction] 33.5 % 40-54 [facility] Laboratory - Chemistry and C hemistry - challengeOrdered By: Joshua Clay on 02-18-2023 CO2 [Moles/Vol] 30.0 mmol/L 21.0-32.0 [facility] Urea nitrogen/Creatinine [Mass ratio] 12.4 mg/mg 10-20 [facility] - Hematology and Cell countsOrdered By: Joshua Clay on 02-18-2023 Erythrocyte distribution width (RBC) [Entitic vol] 51.7 fL 35.1-43.9 [facility] Erythrocyte distribution width (RBC) [Ratio] 15.1 % 11.6-14.6 [facility] MCH (RBC) [Entitic mass] 30.1 pg 27.0-32.0 [facility] MCHC Auto (RBC) [Mass/Vol]Or dered By: Joshua Clay on 02-18-2023 MCHC (RBC) [Mass/Vol] 32.2 g/dL 32-36 [facility] No Panel InformationOrdered By: Joshua Clay on 02-18-2023 Estimated Creatinine Clearance Calc 72.65 ml/min [facility] Estimated GFR (MDRD) Amer 89 mL/min >60 [facility] Comment on above: GFR Calc Estimated GFR (MDRD) Non-Af Amer 73 mL/min >60 [facility] Comment on above: Non- GFR Calc Platelets bldOrdered By: Monet Clay on 02-18-2023 Platelets (Bld) [#/Vol] 208 10*3/uL 150-450 [facility] Serum or plasma calcium desmond urement (mass/volume)Ordered By: Joshua Clay on 02-18-2023 Calcium [Mass/Vol] 8.6 mg/dL 8.5-10.1 [facility] Serum or plasma creatinine m easurement (mass/volume)Ordered By: Joshua Clay on 02-18-2023 Creatinine [Mass/Vol] 1.05 mg/dL 0.70-1.30 [facility] Comment on above: The validity of the calculated GFR & GFRAA in patients over 70 years has not been determined. Clinical correlation is essential. Serum or plasma urea nitroge n measurement (mass/volume)Ordered By: Joshua Clay on 02-18-2023 Urea nitrogen [Mass/Vol] 13 mg/dL 7-18 [facility] Thin prep Papanicolaou smear with manual screeningOrdered By: Joshua Clay on 02-18-2023 Thin prep Papanicolaou smear with manual screening 5 5-15 [facility] Absolute lymphocyte countOrd ered By: Toro Melendez on 02-17-2023 Lymphocytes Auto (Unsp spec) [#/Vol] 1.02 10*3/uL 0.83-4.51 [facility] Basophil percentageOrdered B y: Toro Melendez on 02-17-2023 Basophils/100 WBC (Bld) 0.2 % 0-1 [facility] Chloride [Moles/Vol] 102 mmol/L 98-107 [facility] Eosinophils/100 WBC (Bld) 0.6 % 0-5 [facility] Glucose [Mass/Vol] 121 mg/dL 74-106 [facility] Comment on above: Fasting Glucose resu lt from 100 to 125 mg/dL suggests IMPAIRED HOMEOSTASIS per A.D.A. criteria. Neutrophils (Bld) [#/Vol] 6.9 10*3/uL 2.0-7.7 [facility] Neutrophils/100 WBC (Bld) 81.4 % 47-70 [facility] Potassium [Moles/Vol] 3.5 mmol/L 3.5-5.1 [facility] Sodium [Moles/Vol] 139 mmol/L 136-145 [facility] WBC (Bld) [#/Vol] 8.4 10*3/uL 4.4-11.0 [facility] Blood erythrocytes count (nu mber/volume)Ordered By: Toro Melendez on 02-17-2023 RBC (Bld) [#/Vol] 3.77 10*6/uL 4.6-6.2 [facility] Blood hemoglobin measurement (mass/volume)Ordered By: Toro Melendez on 02-17-2023 Hemoglobin (Bld) [Mass/Vol] 11.0 g/dL 13.0-16.5 [facility] Blood lymphocytes/100 leukoc ytesOrdered By: Toro Melendez on 02-17-2023 Lymphocytes/100 WBC (Bld) 12.1 % 19-41 [facility] Blood monocytes/100 leukocyt esOrdered By: Toro Melendez on 02-17-2023 Monocytes/100 WBC (Bld) 5.1 % 0-10 [facility] Blood platelet mean volumeOr dered By: Toro Melendez on 02-17-2023 Platelet mean volume (Bld) [Entitic vol] 10.7 fL 6.2-12.0 [facility] Determination of erythrocyte mean corpuscular volume (MCV)Ordered By: Toro Melendez on 02-17-2023 MCV (RBC) [Entitic vol] 91.0 fL 80-94 [facility] Hematocrit Auto (Bld) [Volum e fraction]Ordered By: Toro Melendez on 02-17-2023 Hematocrit (Bld) [Volume fraction] 34.3 % 40-54 [facility] INR in Blood by Coagulation assayOrdered By: Toro Melendez on 02-17-2023 INR Coag (Bld) [Relative time] 1.3 {INR} [facility] Laboratory - Chemistry and C hemistry - challengeOrdered By: Toro Melendez on 02-17-2023 CO2 [Moles/Vol] 31.0 mmol/L 21.0-32.0 [facility] Urea nitrogen/Creatinine [Mass ratio] 14.0 mg/mg 10-20 [facility] Laboratory - CoagulationOrde red By: Toro Melendez on 02-17-2023 aPTT Coag (Bld) [Time] 43.6 s 24.1-36.2 [facility] PT Coag (PPP) [Time] 16.6 s 11.7-14.9 [facility] Laboratory - Hematology and Cell countsOrdered By: Toro Melendez on 02-17-2023 Erythrocyte distribution width (RBC) [Entitic vol] 49.5 fL 35.1-43.9 [facility] Erythrocyte distribution width (RBC) [Ratio] 15.0 % 11.6-14.6 [facility] Immature granulocytes/100 WBC (Bld) 0.600 % 0.0-0.9 [facility] Comment on above: IG% - Immature Granu locytes (promyelocytes, myelocytes and metamyelocytes) > 1% indicates that a LEFT SHIFT is Present. MCH (RBC) [Entitic mass] 29.2 pg 27.0-32.0 [facility] Nucleated RBC/100 WBC (Bld) [Ratio] 0 % 0-5 [facility] MCHC Auto (RBC) [Mass/Vol]Or dered By: Toro Melendez on 02-17-2023 MCHC (RBC) [Mass/Vol] 32.1 g/dL 32-36 [facility] No Panel InformationOrdered By: Toro Melendez on 02-17-2023 Troponin I High Sensitivity 385 pg/mL 3.0-78.0 [facility] Comment on above: Critical Result(s) Neeru maloneyedwin at: 12:52:02 02/17/2023 by: Karen Liao. Results read back by same. Please Note: New Test Units and Gender Specific Reference Ranges. For more information see Policy Stat Procedure [place] High Sensitivity Troponin (TNIH) and attachments. Estimated Creatinine Clearance Calc 66.92 ml/min [facility] Estimated GFR (MDRD) Amer 81 mL/min >60 [facility] Comment on above: GFR Calc Estimated GFR (MDRD) Non-Af Amer 67 mL/min >60 [facility] Comment on above: Non- GFR Calc Platelets bldOrdered By: Milton Melendez on 02-17-2023 Platelets (Bld) [#/Vol] 218 10*3/uL 150-450 [facility] Serum or plasma calcium desmond urement (mass/volume)Ordered By: Toro Melendez on 02-17-2023 Calcium [Mass/Vol] 9.1 mg/dL 8.5-10.1 [facility] Serum or plasma creatinine m easurement (mass/volume)Ordered By: Toro Melendez on 02-17-2023 Creatinine [Mass/Vol] 1.14 mg/dL 0.70-1.30 [facility] Comment on above: The validity of the calculated GFR & GFRAA in patients over 70 years has not been determined. Clinical correlation is essential. Serum or plasma urea nitroge n measurement (mass/volume)Ordered By: Toro Melendez on 02-17-2023 Urea nitrogen [Mass/Vol] 16 mg/dL 7-18 [facility] Thin prep Papanicolaou smear with manual screeningOrdered By: Toro Melendez on 02-17-2023 Thin prep Papanicolaou smear with manual screening 6 5-15 [facility] CNPNon 02-14-2023 CNPN Telephone ([place]) BRANDON KULKARNI ([id number]) 1945 M Date Time Provider Department 02/14/23 LAKESHA KENT During your visit today, we recorded the following information about you: Allergies As of Date: 02/14/2023 Noted Allergy Reaction KEITH INHIBITORS 11/05/2015 10 - Anaphylaxis ATORVASTATIN 04/17/2019 16 - Unknown LISINOPRIL 11/05/2015 7 - Swelling PENICILLIN 11/05/2015 2 - Rash Date Reviewed: 02/14/2023 Reviewed by: Lakesha Kent, BARREL SCRAPER.MEDICAL LIAISON - Fully Assessed Primary Visit Diagnosis:OPENED IN ERROR Prescriptions as of 02/14/2023 - ferrous gluconate 324 mg (37.5 mg iron) tablet Take 324 mg by mouth once daily. - aspirin, enteric coated (ASPIRIN, ENTERIC COATED) 81 mg EC tablet Take 81 mg by mouth once daily. - gabapentin (NEURONTIN) 100 mg capsule Take 100 mg by mouth two times a day. - predniSONE (DELTASONE) 10 mg tablet 10 mg as needed. - methotrexate 2.5 mg tablet 15 mg. - MULTIVITAMIN ORAL TAKE 1 CAPSULE BY MOUTH TWICE A DAY FOR MACULAR DEGENERATION - allopurinol (ZYLOPRIM) 100 mg tablet 100 mg once daily. - acetaminophen (TYLENOL) 325 mg tablet TAKE ONE TO TWO TABLETS BY MOUTH FOUR TIMES A DAY NEEDED FOR PAIN. - doxazosin (CARDURA) 1 mg tablet Take 1 tablet by mouth every morning. - cholecalciferol (VITAMIN D3) 50 mcg (2,000 unit) tablet Take 1 tablet by mouth once daily. - folic acid 1 mg tablet Take 2 tablets by mouth once daily. - metoprolol succinate ER (TOPROL XL) 50 mg 24 hr tablet Take 1 tablet by mouth twice daily. - colchicine 0.6 mg tablet Take by mouth. - isosorbide dinitrate (ISORDIL) 30 mg tablet Take 1 tablet by mouth three times daily. - rosuvastatin (CRESTOR) 20 mg tablet Take 20 mg by mouth once daily. - fluticasone prp-sod.chl,bicarb 50 mcg- 0.9 % ksps Use 50 mcg in the nose once daily. - PEG 6143-Hwuyvpyiczr-Red C (MOVIPREP) 100-7.5-2.691 gram Take by mouth one time only. Will take for colon prep - amLODIPine-benazepril (LOTREL) 5-10 mg per capsule Take 1 capsule by mouth. - Carboxymethylcellulose- Glycern (OPTIVE) 0.5-0.9 % drop Use in eyes. - cyclobenzaprine (FLEXERIL) 10 mg tablet Take 10 mg by mouth. - diclofenac sodium (VOLTAREN) 1 % topical gel Apply to affected area. - ferrous sulfate 325 mg (65 mg iron) tablet Take 325 mg by mouth. - furosemide (LASIX) 40 mg tablet Take 40 mg by mouth. - hydrALAZINE (APRESOLINE) 10 mg tablet Take 10 mg by mouth. - pantoprazole DR (PROTONIX) 40 mg tablet Take 40 mg by mouth. - potassium chloride ER (K-DUR, KLOR-CON) 10 mEq tablet Take 10 mEq by mouth. - SODIUM CHLORIDE OPHTHALMIC Use in eyes. - apixaban (ELIQUIS) 5 mg tab tab(s) Take 5 mg by mouth twice daily. - atorvastatin (LIPITOR) 40 mg tablet Take 1 tablet by mouth once daily. - loratadine (CLARITIN) 10 mg tablet Take 10 mg by mouth as needed. - NIFEdipine XL (ADALAT CC, PROCARDIA XL) 60 mg 24 hr tablet Take 60 mg by mouth twice daily. - omeprazole (PRILOSEC) 20 mg capsule Take 20 mg by mouth daily before breakfast. Problem List As Of Date 02/14/2023 Noted Resolved Essential hypertension [I10] 11/28/2015 Gastroesophageal reflux disease without esophag*11/28/2015 Pre-operative cardiovascular exam, new EKG abno*12/03/2015 Hypercholesterolemia [E78.00] 12/03/2015 Non morbid obesity due to excess calories [E66.*05/31/2016 Chronic anticoagulation [Z79.01] 05/31/2016 Paroxysmal atrial fibrillation (HCC) [I48.0] 11/29/2016 Coronary artery disease involving upper [place] bledsoe*11/29/2016 Encounter Status:Closed by LAKESHA KENT on 02/14/23 [facility] HISTORY PHYSICALon 3 HISTORY PHYSICAL HNO ID: [id number] Author: Lakesha Kent APRN.MEDICAL LIAISON Service: ? 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 08/31/2022 Jesse Grace CNP Essential hypertension Assessment: [...] unspecified (HCC) Assessment: Daily Prednisone, MTX, following [facility], Dr. Larios Hypokalemia Assessment: on rx. Potassium 4.0 11/25/2022 in clinic sync Other spondylosis, lumbar region Assessment: chronic back pain, controlled on rx Class 1 obesity due to excess calories with serious comorbidity and body mass index (BMI) of 31.0 to 31.9 in adult Assessment: Body mass index is 31.87 kg/m?. [place] Activity Status Index: METS: Climb a [...] BMI less than or equal to 35 kg/m2 STOP-Bang Score: 5 [id number] Score: Age: >=75 Sex: male CHF history: Yes Hypertension history: Yes Stroke/TIA/thromboembol ism history: No Vascular disease history: Yes Diabetes history: Yes [id number] Score: 6 ARISCAT Score: Age: 51-80 Preoperative [...] Gonzalez present: no Lip Bite Test: I Microretrognathia/Micro nagthia/Recessed Chin: No DENTAL Dentures, upper: complete. Dentures, [...] for colonoscopy at the request of Dr. Samuel Contreras for consultation. My final recommendation will [...] Chronic A-Fib (Hcc) Coronary Artery Disease Involving [place] Coronary Artery of [place] Heart Without Angina Pectoris Chronic Diastolic Heart Failure (Hcc) Iron Deficiency Anemia Due to Chronic Blood Loss Other Spondy (more content not included)... Normal [facility] Absolute lymphocyte countOrd ered By: Jimbo Aquino on 02-09-2023 Lymphocytes Auto (Unsp spec) [#/Vol] 0.76 10*3/uL 0.83-4.51 [facility] Basophil percentageOrdered B y: Jimbo Aquino on 02-09-2023 Basophils/100 WBC (Bld) 0.5 % 0-1 [facility] Chloride [Moles/Vol] 104 mmol/L 98-107 [facility] Eosinophils/100 WBC (Bld) 0.8 % 0-5 [facility] Glucose [Mass/Vol] 116 mg/dL 74-106 [facility] Comment on above: Fasting Glucose resu lt from 100 to 125 mg/dL suggests IMPAIRED HOMEOSTASIS per A.D.A. criteria. Neutrophils (Bld) [#/Vol] 4.9 10*3/uL 2.0-7.7 [facility] Neutrophils/100 WBC (Bld) 74.2 % 47-70 [facility] Potassium [Moles/Vol] 4.0 mmol/L 3.5-5.1 [facility] Sodium [Moles/Vol] 136 mmol/L 136-145 [facility] WBC (Bld) [#/Vol] 6.6 10*3/uL 4.4-11.0 [facility] Blood erythrocytes count (nu mber/volume)Ordered By: Jimbo Aquino on 02-09-2023 RBC (Bld) [#/Vol] 3.91 10*6/uL 4.6-6.2 [facility] Blood hemoglobin measurement (mass/volume)Ordered By: Jimbo Aquino on 02-09-2023 Hemoglobin (Bld) [Mass/Vol] 11.6 g/dL 13.0-16.5 [facility] Blood lymphocytes/100 leukoc ytesOrdered By: Jimbo Aquino on 02-09-2023 Lymphocytes/100 WBC (Bld) 11.5 % 19-41 [facility] Blood monocytes/100 leukocyt esOrdered By: Jimbo Aquino on 02-09-2023 Monocytes/100 WBC (Bld) 12.4 % 0-10 [facility] Blood platelet mean volumeOr dered By: Jimbo Aquino on 02-09-2023 Platelet mean volume (Bld) [Entitic vol] 12.0 fL 6.2-12.0 [facility] Determination of erythrocyte mean corpuscular volume (MCV)Ordered By: Jimbo Aquino on 02-09-2023 MCV (RBC) [Entitic vol] 96.7 fL 80-94 [facility] Hematocrit Auto (Bld) [Volum e fraction]Ordered By: Jimbo Aquino on 02-09-2023 Hematocrit (Bld) [Volume fraction] 37.8 % 40-54 [facility] Laboratory - Chemistry and C hemistry - challengeOrdered By: Jimbo Aquino on 02-09-2023 CO2 [Moles/Vol] 29.0 mmol/L 21.0-32.0 [facility] Urea nitrogen/Creatinine [Mass ratio] 10.7 mg/mg 10-20 [facility] Laboratory - Hematology and Cell countsOrdered By: Jimbo Aquino on 02-09-2023 Erythrocyte distribution width (RBC) [Entitic vol] 55.4 fL 35.1-43.9 [facility] Erythrocyte distribution width (RBC) [Ratio] 15.7 % 11.6-14.6 [facility] Immature granulocytes/100 WBC (Bld) 0.600 % 0.0-0.9 [facility] Comment on above: IG% - Immature Granu locytes (promyelocytes, myelocytes and metamyelocytes) > 1% indicates that a LEFT SHIFT is Present. MCH (RBC) [Entitic mass] 29.7 pg 27.0-32.0 [facility] Nucleated RBC/100 WBC (Bld) [Ratio] 0 % 0-5 [facility] MCHC Auto (RBC) [Mass/Vol]Or dered By: Jimbo Aquino on 02-09-2023 MCHC (RBC) [Mass/Vol] 30.7 g/dL 32-36 [facility] No Panel InformationOrdered By: Jimbo Aquino on 02-09-2023 Estimated Creatinine Clearance Calc 58.23 ml/min [facility] Estimated GFR (MDRD) Amer 69 mL/min >60 [facility] Comment on above: GFR Calc Estimated GFR (MDRD) Non-Af Amer 57 mL/min >60 [facility] Comment on above: Non- GFR Calc Troponin I High Sensitivity 341 pg/mL 3.0-78.0 [facility] Comment on above: Critical Result(s) C alled at: 08:18:40 02/09/2023 by: Karen Murrieta. Results read back by same. Please Note: New Test Units and Gender Specific Reference Ranges. For more information see Policy Stat Procedure [place] High Sensitivity Troponin (TNIH) and attachments. Platelets bldOrdered By: Tylor Aquino on 02-09-2023 Platelets (Bld) [#/Vol] 157 10*3/uL 150-450 [facility] SARS-CoV-2 (COVID-19) Ag IA. rapid Ql (Resp)Ordered By: Jimbo Aquino on 02-09-2023 SARS-CoV-2 Antigen (Rapid) SARS-CoV-2 (COVID 19) [facility] Serum or plasma calcium desmond urement (mass/volume)Ordered By: Jimbo Aquino on 02-09-2023 Calcium [Mass/Vol] 8.9 mg/dL 8.5-10.1 [facility] Serum or plasma creatinine m easurement (mass/volume)Ordered By: Jimbo Aquino on 02-09-2023 Creatinine [Mass/Vol] 1.31 mg/dL 0.70-1.30 [facility] Comment on above: The validity of the calculated GFR & GFRAA in patients over 70 years has not been determined. Clinical correlation is essential. Serum or plasma urea nitroge n measurement (mass/volume)Ordered By: Jimbo Aquino on 02-09-2023 Urea nitrogen [Mass/Vol] 14 mg/dL 7-18 [facility] Thin prep Papanicolaou smear with manual screeningOrdered By: Jimbo Aquino on 02-09-2023 Thin prep Papanicolaou smear with manual screening 3 5-15 [facility] CNPNon 02-07-2023 CNPN Telephone ([place]) BRANDON KULKARNI ([id number]) 1945 M Date Time Provider Department 02/07/23 LAKESHA KENT During your visit today, we recorded the following information about you: Destiny Victoria LPN 02/07/2023 12:26 PM Signed Called and spoke with patient regarding missed [facility] appt at 1040am. He states he forgot he had an appt today and would like to get it rescheduled. Please reach out to patient. Colonoscopy 03/02/23. Destiny Victoria LPN Allergies As of Date: 02/07/2023 Noted Allergy Reaction KEITH INHIBITORS 11/05/2015 10 - Anaphylaxis ATORVASTATIN 04/17/2019 16 - Unknown LISINOPRIL 11/05/2015 7 - Swelling PENICILLIN 11/05/2015 2 - Rash Date Reviewed: 12/22/2022 Reviewed by: Chelita Oliveira PA-C - Fully Assessed Reason for Visit: Appointment [[id number]] Cmt: NO SHOW Prescriptions as of 02/09/2023 - predniSONE (DELTASONE) 10 mg tablet 10 mg. - methotrexate 2.5 mg tablet 15 mg. - MULTIVITAMIN ORAL TAKE 1 CAPSULE BY MOUTH TWICE A DAY FOR MACULAR DEGENERATION - allopurinol (ZYLOPRIM) 100 mg tablet 200 mg. - acetaminophen (TYLENOL) 325 mg tablet TAKE ONE TO TWO TABLETS BY MOUTH FOUR TIMES A DAY NEEDED FOR PAIN. - doxazosin (CARDURA) 1 mg tablet Take 1 tablet by mouth every morning. - cholecalciferol (VITAMIN D3) 50 mcg (2,000 unit) tablet Take 1 tablet by mouth once daily. - folic acid 1 mg tablet Take 2 tablets by mouth once daily. - metoprolol succinate ER (TOPROL XL) 50 mg 24 hr tablet Take 1 tablet by mouth twice daily. - colchicine 0.6 mg tablet Take by mouth. - isosorbide dinitrate (ISORDIL) 30 mg tablet Take 1 tablet by mouth three times daily. - rosuvastatin (CRESTOR) 20 mg tablet Take 20 mg by mouth once daily. - fluticasone prp-sod.chl,bicarb 50 mcg- 0.9 % ksps Use 50 mcg in the nose once daily. - PEG 3592-Rgxakohdcyr-Mcf C (MOVIPREP) 100-7.5-2.691 gram Take by mouth one time only. Will take for colon prep - amLODIPine-benazepril (LOTREL) 5-10 mg per capsule Take 1 capsule by mouth. - Carboxymethylcellulose- Glycern (OPTIVE) 0.5-0.9 % drop Use in eyes. - cyclobenzaprine (FLEXERIL) 10 mg tablet Take 10 mg by mouth. - diclofenac sodium (VOLTAREN) 1 % topical gel Apply to affected area. - ferrous sulfate 325 mg (65 mg iron) tablet Take 325 mg by mouth. - furosemide (LASIX) 40 mg tablet Take 40 mg by mouth. - hydrALAZINE (APRESOLINE) 10 mg tablet Take 10 mg by mouth. - pantoprazole DR (PROTONIX) 40 mg tablet Take 40 mg by mouth. - potassium chloride ER (K-DUR, KLOR-CON) 10 mEq tablet Take 10 mEq by mouth. - SODIUM CHLORIDE OPHTHALMIC Use in eyes. - apixaban (ELIQUIS) 5 mg tab tab(s) Take 5 mg by mouth twice daily. - atorvastatin (LIPITOR) 40 mg tablet Take 1 tablet by mouth once daily. - loratadine (CLARITIN) 10 mg tablet Take 10 mg by mouth as needed. - NIFEdipine XL (ADALAT CC, PROCARDIA XL) 60 mg 24 hr tablet Take 60 mg by mouth twice daily. - omeprazole (PRILOSEC) 20 mg capsule Take 20 mg by mouth daily before breakfast. 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 Chloride [Moles/Vol] 103 mmol/L 98-107 [facility] Eosinophils/100 WBC (Bld) 2.0 % 0-5 [facility] Glucose [Mass/Vol] 87 mg/dL 74-106 [facility] Neutrophils (Bld) [#/Vol] 5.3 10*3/uL 2.0-7.7 [facility] Neutrophils/100 WBC (Bld) 62.8 % 47-70 [facility] Potassium [Moles/Vol] 4.0 mmol/L 3.5-5.1 [facility] Protein [Mass/Vol] 6.9 g/dL 6.4-8.2 [facility] Sodium [Moles/Vol] 138 mmol/L 136-145 [facility] WBC (Bld) [#/Vol] 8.4 10*3/uL 4.4-11.0 [facility] Blood erythrocytes count (nu mber/volume)Ordered By: Asuncion Larios on 11-25-2022 RBC (Bld) [#/Vol] 4.03 10*6/uL 4.6-6.2 [facility] Blood hemoglobin measurement (mass/volume)Ordered By: Asuncion Larios on 11-25-2022 Hemoglobin (Bld) [Mass/Vol] 11.5 g/dL 13.0-16.5 [facility] Blood lymphocytes/100 leukoc ytesOrdered By: Asuncion Larios on 11-25-2022 Lymphocytes/100 WBC (Bld) 21.9 % 19-41 [facility] Blood monocytes/100 leukocyt esOrdered By: Asuncion Larios on 11-25-2022 Monocytes/100 WBC (Bld) 11.9 % 0-10 [facility] Blood platelet mean volumeOr dered By: Asuncion Larios on 11-25-2022 Platelet mean volume (Bld) [Entitic vol] 11.9 fL 6.2-12.0 [facility] Determination of erythrocyte mean corpuscular volume (MCV)Ordered By: Asuncion Larios on 11-25-2022 MCV (RBC) [Entitic vol] 94.3 fL 80-94 [facility] Hematocrit Auto (Bld) [Volum e fraction]Ordered By: Asuncion Larios on 11-25-2022 Hematocrit (Bld) [Volume fraction] 38.0 % 40-54 [facility] Laboratory - Chemistry and C hemistry - challengeOrdered By: Asuncion Larios on 11-25-2022 ALP [Catalytic activity/Vol] 78 U/L 45-117 [facility] ALT [Catalytic activity/Vol] 18 U/L 16-61 [facility] CO2 [Moles/Vol] 31.0 mmol/L 21.0-32.0 [facility] Globulin (S) [Mass/Vol] 3.4 g/dL 2.2-4.2 [facility] Urea nitrogen/Creatinine [Mass ratio] 13.9 mg/mg 10-20 [facility] - Hematology and Cell countsOrdered By: Asuncion Larios on 11-25-2022 Erythrocyte distribution width (RBC) [Entitic vol] 55.0 fL 35.1-43.9 [facility] Erythrocyte distribution width (RBC) [Ratio] 16.3 % 11.6-14.6 [facility] Immature granulocytes/100 WBC (Bld) 0.700 % 0.0-0.9 [facility] Comment on above: IG% - Immature Granu locytes (promyelocytes, myelocytes and metamyelocytes) > 1% indicates that a LEFT SHIFT is Present. MCH (RBC) [Entitic mass] 28.5 pg 27.0-32.0 [facility] Nucleated RBC/100 WBC (Bld) [Ratio] 0 % 0-5 [facility] MCHC Auto (RBC) [Mass/Vol]Or dered By: Asuncion Larios on 11-25-2022 MCHC (RBC) [Mass/Vol] 30.3 g/dL 32-36 [facility] No Panel InformationOrdered By: Asuncion Larios on 11-25-2022 Estimated GFR (MDRD) Amer 86 mL/min >60 [facility] Comment on above: GFR Calc Estimated GFR (MDRD) Non-Af Amer 71 mL/min >60 [facility] Comment on above: Non- GFR Calc Platelets bldOrdered By: Dontrell Larios on 11-25-2022 Platelets (Bld) [#/Vol] 220 10*3/uL 150-450 [facility] Serum or plasma albumin desmond urement (mass/volume)Ordered By: Asuncion Larios on 11-25-2022 Albumin [Mass/Vol] 3.5 g/dL 3.2-5.0 [facility] Serum or plasma albumin/glob ulin mass ratioOrdered By: Asuncion Larios on 11-25-2022 Albumin/Globulin [Mass ratio] 1.0 {ratio} 0.9-2.4 [facility] Serum or plasma calcium desmond urement (mass/volume)Ordered By: Asuncion Larios on 11-25-2022 Calcium [Mass/Vol] 8.9 mg/dL 8.5-10.1 [facility] Serum or plasma creatinine m easurement (mass/volume)Ordered By: Asuncion Larios on 11-25-2022 Creatinine [Mass/Vol] 1.08 mg/dL 0.70-1.30 [facility] Comment on above: The validity of the calculated GFR & GFRAA in patients over 70 years has not been determined. Clinical correlation is essential. Serum or plasma urea nitroge n measurement (mass/volume)Ordered By: Asuncion Larios on 11-25-2022 Urea nitrogen [Mass/Vol] 15 mg/dL 7-18 [facility] Thin prep Papanicolaou smear with manual screeningOrdered By: Asuncion Larios on 11-25-2022 Thin prep Papanicolaou smear with manual screening 15 U/L 15-37 [facility] Thin prep Papanicolaou smear with manual screening 4 5-15 [facility] Basophil percentageOrdered B y: Jesse Grace on 08-31-2022 Chloride [Moles/Vol] 103 mmol/L 98-107 [facility] Glucose [Mass/Vol] 102 mg/dL 74-106 [facility] Comment on above: Fasting Glucose resu lt from 100 to 125 mg/dL suggests IMPAIRED HOMEOSTASIS per A.D.A. criteria. Potassium [Moles/Vol] 3.1 mmol/L 3.5-5.1 [facility] Sodium [Moles/Vol] 141 mmol/L 136-145 [facility] Laboratory - Chemistry and C hemistry - challengeOrdered By: Jesse Grace on 08-31-2022 CO2 [Moles/Vol] 31.0 mmol/L 21.0-32.0 [facility] Natriuretic peptide B (Bld) [Mass/Vol] 282.1 pg/mL 0-100 [facility] Urea nitrogen/Creatinine [Mass ratio] 15.2 mg/mg 10-20 [facility] No Panel InformationOrdered By: Jesse Grace on 08-31-2022 Estimated GFR (MDRD) Amer 68 mL/min >60 [facility] Comment on above: GFR Calc Estimated GFR (MDRD) Non-Af Amer 56 mL/min >60 [facility] Comment on above: Non- GFR Calc Serum or plasma calcium desmond urement (mass/volume)Ordered By: Jesse Grace on 08-31-2022 Calcium [Mass/Vol] 8.8 mg/dL 8.5-10.1 [facility] Serum or plasma creatinine m easurement (mass/volume)Ordered By: Jesse Grace on 08-31-2022 Creatinine [Mass/Vol] 1.32 mg/dL 0.70-1.30 [facility] Comment on above: The validity of the calculated GFR & GFRAA in patients over 70 years has not been determined. Clinical correlation is essential. Serum or plasma urea nitroge n measurement (mass/volume)Ordered By: Jesse Grace on 08-31-2022 Urea nitrogen [Mass/Vol] 20 mg/dL 7-18 [facility] Thin prep Papanicolaou smear with manual screeningOrdered By: Jesse Grace on 08-31-2022 Thin prep Papanicolaou smear with manual screening 7 5-15 [facility] Absolute lymphocyte countOrd ered By: Dr. Larios on 08-23-2022 Lymphocytes Auto (Unsp spec) [#/Vol] 0.98 10*3/uL 0.83-4.51 [facility] Basophil percentageOrdered B y: Dr. Larios on 08-23-2022 Basophils/100 WBC (Bld) 0.6 % 0-1 [facility] Bilirubin [Mass/Vol] 0.80 mg/dL 0.20-1.00 [facility] Comment on above: For patients on eltr ombopag therapy, use of Dimension [place] TBIL is not recommended. Chloride [Moles/Vol] 102 mmol/L 98-107 [facility] Eosinophils/100 WBC (Bld) 0.6 % 0-5 [facility] Glucose [Mass/Vol] 123 mg/dL 74-106 [facility] Comment on above: Fasting Glucose resu lt from 100 to 125 mg/dL suggests IMPAIRED HOMEOSTASIS per A.D.A. criteria. Neutrophils (Bld) [#/Vol] 7.9 10*3/uL 2.0-7.7 [facility] Neutrophils/100 WBC (Bld) 80.6 % 47-70 [facility] Potassium [Moles/Vol] 4.1 mmol/L 3.5-5.1 [facility] Protein [Mass/Vol] 6.5 g/dL 6.4-8.2 [facility] Sodium [Moles/Vol] 139 mmol/L 136-145 [facility] WBC (Bld) [#/Vol] 9.9 10*3/uL 4.4-11.0 [facility] Blood erythrocytes count (nu mber/volume)Ordered By: Dr. Lraios on 08-23-2022 RBC (Bld) [#/Vol] 3.64 10*6/uL 4.6-6.2 [facility] Blood hemoglobin measurement (mass/volume)Ordered By: Dr. Larios on 08-23-2022 Hemoglobin (Bld) [Mass/Vol] 10.9 g/dL 13.0-16.5 [facility] Blood lymphocytes/100 leukoc ytesOrdered By: Dr. Larios on 08-23-2022 Lymphocytes/100 WBC (Bld) 9.9 % 19-41 [facility] Blood monocytes/100 leukocyt esOrdered By: Dr. Larios on 08-23-2022 Monocytes/100 WBC (Bld) 7.6 % 0-10 [facility] Blood platelet mean volumeOr dered By: Dr. Larios on 08-23-2022 Platelet mean volume (Bld) [Entitic vol] 11.6 fL 6.2-12.0 [facility] Determination of erythrocyte mean corpuscular volume (MCV)Ordered By: Dr. Larios on 08-23-2022 MCV (RBC) [Entitic vol] 94.5 fL 80-94 [facility] Hematocrit Auto (Bld) [Volum e fraction]Ordered By: Dr. Larios on 08-23-2022 Hematocrit (Bld) [Volume fraction] 34.4 % 40-54 [facility] - Chemistry and C hemistry - challengeOrdered By: Dr. Larios on 08-23-2022 ALP [Catalytic activity/Vol] 77 U/L 45-117 [facility] ALT [Catalytic activity/Vol] 22 U/L 16-61 [facility] CO2 [Moles/Vol] 30.0 mmol/L 21.0-32.0 [facility] Globulin (S) [Mass/Vol] 3.1 g/dL 2.2-4.2 [facility] Urea nitrogen/Creatinine [Mass ratio] 15.8 mg/mg 10-20 [facility] - Hematology and Cell countsOrdered By: Dr. Larios on 08-23-2022 Erythrocyte distribution width (RBC) [Entitic vol] 54.5 fL 35.1-43.9 [facility] Erythrocyte distribution width (RBC) [Ratio] 15.9 % 11.6-14.6 [facility] Immature granulocytes/100 WBC (Bld) 0.700 % 0.0-0.9 [facility] Comment on above: IG% - Immature Granu locytes (promyelocytes, myelocytes and metamyelocytes) > 1% indicates that a LEFT SHIFT is Present. MCH (RBC) [Entitic mass] 29.9 pg 27.0-32.0 [facility] Nucleated RBC/100 WBC (Bld) [Ratio] 0 % 0-5 [facility] MCHC Auto (RBC) [Mass/Vol]Or dered By: Dr. Larios on 08-23-2022 MCHC (RBC) [Mass/Vol] 31.7 g/dL 32-36 [facility] No Panel InformationOrdered By: Dr. Larios on 08-23-2022 Estimated GFR (MDRD) Amer 76 mL/min >60 [facility] Comment on above: GFR Calc Estimated GFR (MDRD) Non-Af Amer 63 mL/min >60 [facility] Comment on above: Non- GFR Calc Platelets bldOrdered By: Dr. Larios on 08-23-2022 Platelets (Bld) [#/Vol] 196 10*3/uL 150-450 [facility] Serum or plasma albumin desmond urement (mass/volume)Ordered By: Dr. Larios on 08-23-2022 Albumin [Mass/Vol] 3.4 g/dL 3.2-5.0 [facility] Serum or plasma albumin/glob ulin mass ratioOrdered By: Dr. Larios on 08-23-2022 Albumin/Globulin [Mass ratio] 1.1 {ratio} 0.9-2.4 [facility] Serum or plasma calcium desmond urement (mass/volume)Ordered By: Dr. Larios on 08-23-2022 Calcium [Mass/Vol] 8.6 mg/dL 8.5-10.1 [facility] Serum or plasma creatinine m easurement (mass/volume)Ordered By: Dr. Larios on 08-23-2022 Creatinine [Mass/Vol] 1.20 mg/dL 0.70-1.30 [facility] Comment on above: The validity of the calculated GFR & GFRAA in patients over 70 years has not been determined. Clinical correlation is essential. Serum or plasma urea nitroge n measurement (mass/volume)Ordered By: Dr. Larios on 08-23-2022 Urea nitrogen [Mass/Vol] 19 mg/dL 7-18 [facility] Thin prep Papanicolaou smear with manual screeningOrdered By: Dr. Larios on 08-23-2022 Thin prep Papanicolaou smear with manual screening 15 U/L 15-37 [facility] Thin prep Papanicolaou smear with manual screening 7 5-15 [facility] Absolute lymphocyte countOrd ered By: Dr. Larios on 05-18-2022 Lymphocytes Auto (Unsp spec) [#/Vol] 2.06 10*3/uL 0.83-4.51 [facility] Basophil percentageOrdered B y: Dr. Larios on 05-18-2022 Basophils/100 WBC (Bld) 0.6 % 0-1 [facility] Bilirubin [Mass/Vol] 1.00 mg/dL 0.20-1.00 [facility] Comment on above: For patients on eltr ombopag therapy, use of Dim[place] TBIL is not recommended. Chloride [Moles/Vol] 103 mmol/L 98-107 [facility] Eosinophils/100 WBC (Bld) 1.3 % 0-5 [facility] Glucose [Mass/Vol] 107 mg/dL 74-106 [facility] Comment on above: Fasting Glucose resu lt from 100 to 125 mg/dL suggests IMPAIRED HOMEOSTASIS per A.D.A. criteria. Neutrophils (Bld) [#/Vol] 5.9 10*3/uL 2.0-7.7 [facility] Neutrophils/100 WBC (Bld) 63.0 % 47-70 [facility] Potassium [Moles/Vol] 3.3 mmol/L 3.5-5.1 [facility] Protein [Mass/Vol] 6.8 g/dL 6.4-8.2 [facility] Sodium [Moles/Vol] 141 mmol/L 136-145 [facility] WBC (Bld) [#/Vol] 9.4 10*3/uL 4.4-11.0 [facility] Blood erythrocytes count (nu mber/volume)Ordered By: Dr. Larios on 05-18-2022 RBC (Bld) [#/Vol] 4.19 10*6/uL 4.6-6.2 [facility] Blood hemoglobin measurement (mass/volume)Ordered By: Dr. Larios on 05-18-2022 Hemoglobin (Bld) [Mass/Vol] 12.2 g/dL 13.0-16.5 [facility] Blood lymphocytes/100 leukoc ytesOrdered By: Dr. Larios on 05-18-2022 Lymphocytes/100 WBC (Bld) 22.0 % 19-41 [facility] Blood monocytes/100 leukocyt esOrdered By: Dr. Larios on 05-18-2022 Monocytes/100 WBC (Bld) 12.7 % 0-10 [facility] Blood platelet mean volumeOr dered By: Dr. Larios on 05-18-2022 Platelet mean volume (Bld) [Entitic vol] 12.3 fL 6.2-12.0 [facility] Determination of erythrocyte mean corpuscular volume (MCV)Ordered By: Dr. Larios on 05-18-2022 MCV (RBC) [Entitic vol] 92.8 fL 80-94 [facility] Hematocrit Auto (Bld) [Volum e fraction]Ordered By: Dr. Larios on 05-18-2022 Hematocrit (Bld) [Volume fraction] 38.9 % 40-54 [facility] - Chemistry and C hemistry - challengeOrdered By: Dr. Larios on 05-18-2022 ALP [Catalytic activity/Vol] 74 U/L 45-117 [facility] ALT [Catalytic activity/Vol] 23 U/L 16-61 [facility] CO2 [Moles/Vol] 30.0 mmol/L 21.0-32.0 [facility] Globulin (S) [Mass/Vol] 3.2 g/dL 2.2-4.2 [facility] Urea nitrogen/Creatinine [Mass ratio] 12.2 mg/mg 10-20 [facility] - Hematology and Cell countsOrdered By: Dr. Larios on 05-18-2022 Erythrocyte distribution width (RBC) [Entitic vol] 58.4 fL 35.1-43.9 [facility] Erythrocyte distribution width (RBC) [Ratio] 17.2 % 11.6-14.6 [facility] Immature granulocytes/100 WBC (Bld) 0.400 % 0.0-0.9 [facility] Comment on above: IG% - Immature Granu locytes (promyelocytes, myelocytes and metamyelocytes) > 1% indicates that a LEFT SHIFT is Present. MCH (RBC) [Entitic mass] 29.1 pg 27.0-32.0 [facility] Nucleated RBC/100 WBC (Bld) [Ratio] 0 % 0-5 [facility] MCHC Auto (RBC) [Mass/Vol]Or dered By: Dr. Larios on 05-18-2022 MCHC (RBC) [Mass/Vol] 31.4 g/dL 32-36 [facility] No Panel InformationOrdered By: Dr. Larios on 05-18-2022 Estimated GFR (MDRD) Amer 80 mL/min >60 [facility] Comment on above: GFR Calc Estimated GFR (MDRD) Non-Af Amer 66 mL/min >60 [facility] Comment on above: Non- GFR Calc Platelets bldOrdered By: Dr. Larios on 05-18-2022 Platelets (Bld) [#/Vol] 179 10*3/uL 150-450 [facility] Serum or plasma albumin desmond urement (mass/volume)Ordered By: Dr. Larios on 05-18-2022 Albumin [Mass/Vol] 3.6 g/dL 3.2-5.0 [facility] Serum or plasma albumin/glob ulin mass ratioOrdered By: Dr. Larios on 05-18-2022 Albumin/Globulin [Mass ratio] 1.1 {ratio} 0.9-2.4 [facility] Serum or plasma calcium desmond urement (mass/volume)Ordered By: Dr. Larios on 05-18-2022 Calcium [Mass/Vol] 8.9 mg/dL 8.5-10.1 [facility] Serum or plasma creatinine m easurement (mass/volume)Ordered By: Dr. Larios on 05-18-2022 Creatinine [Mass/Vol] 1.15 mg/dL 0.70-1.30 [facility] Comment on above: The validity of the calculated GFR & GFRAA in patients over 70 years has not been determined. Clinical correlation is essential. Serum or plasma urea nitroge n measurement (mass/volume)Ordered By: Dr. Larios on 05-18-2022 Urea nitrogen [Mass/Vol] 14 mg/dL 7-18 [facility] Thin prep Papanicolaou smear with manual screeningOrdered By: Dr. Larios on 05-18-2022 Thin prep Papanicolaou smear with manual screening 17 U/L 15-37 [facility] Thin prep Papanicolaou smear with manual screening 8 5-15 [facility] Absolute lymphocyte countOrd ered By: Dr. Larios on 02-24-2022 Lymphocytes Auto (Unsp spec) [#/Vol] 1.93 10*3/uL 0.83-4.51 [facility] Basophil percentageOrdered B y: Dr. Larios on 02-24-2022 Basophils/100 WBC (Bld) 0.6 % 0-1 [facility] Bilirubin [Mass/Vol] 0.90 mg/dL 0.20-1.00 [facility] Comment on above: For patients on eltr ombopag therapy, use of Dim[place] TBIL is not recommended. Chloride [Moles/Vol] 104 mmol/L 98-107 [facility] Eosinophils/100 WBC (Bld) 2.1 % 0-5 [facility] Glucose [Mass/Vol] 104 mg/dL 74-106 [facility] Comment on above: Fasting Glucose resu lt from 100 to 125 mg/dL suggests IMPAIRED HOMEOSTASIS per A.D.A. criteria. Neutrophils (Bld) [#/Vol] 4.5 10*3/uL 2.0-7.7 [facility] Neutrophils/100 WBC (Bld) 61.3 % 47-70 [facility] Potassium [Moles/Vol] 3.6 mmol/L 3.5-5.1 [facility] Protein [Mass/Vol] 6.4 g/dL 6.4-8.2 [facility] Sodium [Moles/Vol] 142 mmol/L 136-145 [facility] WBC (Bld) [#/Vol] 7.3 10*3/uL 4.4-11.0 [facility] Blood erythrocytes count (nu mber/volume)Ordered By: Dr. Larios on 02-24-2022 RBC (Bld) [#/Vol] 4.01 10*6/uL 4.6-6.2 [facility] Blood hemoglobin measurement (mass/volume)Ordered By: Dr. Larios on 02-24-2022 Hemoglobin (Bld) [Mass/Vol] 11.1 g/dL 13.0-16.5 [facility] Blood lymphocytes/100 leukoc ytesOrdered By: Dr. Larios on 02-24-2022 Lymphocytes/100 WBC (Bld) 26.5 % 19-41 [facility] Blood monocytes/100 leukocyt esOrdered By: Dr. Larios on 02-24-2022 Monocytes/100 WBC (Bld) 9.2 % 0-10 [facility] Blood platelet mean volumeOr dered By: Dr. Larios on 02-24-2022 Platelet mean volume (Bld) [Entitic vol] 12.0 fL 6.2-12.0 [facility] Determination of erythrocyte mean corpuscular volume (MCV)Ordered By: Dr. Larios on 02-24-2022 MCV (RBC) [Entitic vol] 89.5 fL 80-94 [facility] Hematocrit Auto (Bld) [Volum e fraction]Ordered By: Dr. Larios on 02-24-2022 Hematocrit (Bld) [Volume fraction] 35.9 % 40-54 [facility] - Chemistry and C hemistry - challengeOrdered By: Dr. Larios on 02-24-2022 ALP [Catalytic activity/Vol] 84 U/L 45-117 [facility] ALT [Catalytic activity/Vol] 17 U/L 16-61 [facility] CO2 [Moles/Vol] 30.0 mmol/L 21.0-32.0 [facility] Globulin (S) [Mass/Vol] 2.7 g/dL 2.2-4.2 [facility] Urea nitrogen/Creatinine [Mass ratio] 12.8 mg/mg 10-20 [facility] - Hematology and Cell countsOrdered By: Dr. Larios on 02-24-2022 Erythrocyte distribution width (RBC) [Entitic vol] 56.1 fL 35.1-43.9 [facility] Erythrocyte distribution width (RBC) [Ratio] 17.2 % 11.6-14.6 [facility] Immature granulocytes/100 WBC (Bld) 0.300 % 0.0-0.9 [facility] Comment on above: IG% - Immature Granu locytes (promyelocytes, myelocytes and metamyelocytes) > 1% indicates that a LEFT SHIFT is Present. MCH (RBC) [Entitic mass] 27.7 pg 27.0-32.0 [facility] Nucleated RBC/100 WBC (Bld) [Ratio] 0 % 0-5 [facility] MCHC Auto (RBC) [Mass/Vol]Or dered By: Dr. Larios on 02-24-2022 MCHC (RBC) [Mass/Vol] 30.9 g/dL 32-36 [facility] No Panel InformationOrdered By: Dr. Larios on 02-24-2022 Estimated GFR (MDRD) Amer 85 mL/min >60 [facility] Comment on above: GFR Calc Estimated GFR (MDRD) Non-Af Amer 70 mL/min >60 [facility] Comment on above: Non- GFR Calc Platelets bldOrdered By: Dr. Larios on 02-24-2022 Platelets (Bld) [#/Vol] 148 10*3/uL 150-450 [facility] Serum or plasma albumin desmond urement (mass/volume)Ordered By: Dr. Larios on 02-24-2022 Albumin [Mass/Vol] 3.7 g/dL 3.2-5.0 [facility] Serum or plasma albumin/glob ulin mass ratioOrdered By: Dr. Larios on 02-24-2022 Albumin/Globulin [Mass ratio] 1.4 {ratio} 0.9-2.4 [facility] Serum or plasma calcium desmond urement (mass/volume)Ordered By: Dr. Larios on 02-24-2022 Calcium [Mass/Vol] 8.3 mg/dL 8.5-10.1 [facility] Serum or plasma creatinine m easurement (mass/volume)Ordered By: Dr. Larios on 02-24-2022 Creatinine [Mass/Vol] 1.09 mg/dL 0.70-1.30 [facility] Comment on above: The validity of the calculated GFR & GFRAA in patients over 70 years has not been determined. Clinical correlation is essential. Serum or plasma urea nitroge n measurement (mass/volume)Ordered By: Dr. Larios on 02-24-2022 Urea nitrogen [Mass/Vol] 14 mg/dL 7-18 [facility] Thin prep Papanicolaou smear with manual screeningOrdered By: Dr. Larios on 02-24-2022 Thin prep Papanicolaou smear with manual screening 13 U/L 15-37 [facility] Thin prep Papanicolaou smear with manual screening 8 5-15 [facility] Absolute lymphocyte countOrd ered By: Dr. Patterson on 02-06-2022 Lymphocytes Auto (Unsp spec) [#/Vol] 1.72 10*3/uL 0.83-4.51 [facility] Basophil percentageOrdered B y: Dr. Patterson on 02-06-2022 Basophils/100 WBC (Bld) 0.6 % 0-1 [facility] Chloride [Moles/Vol] 104 mmol/L 98-107 [facility] Eosinophils/100 WBC (Bld) 2.2 % 0-5 [facility] Glucose [Mass/Vol] 101 mg/dL 74-106 [facility] Comment on above: Fasting Glucose resu lt from 100 to 125 mg/dL suggests IMPAIRED HOMEOSTASIS per A.D.A. criteria. Neutrophils (Bld) [#/Vol] 4.0 10*3/uL 2.0-7.7 [facility] Neutrophils/100 WBC (Bld) 58.4 % 47-70 [facility] Potassium [Moles/Vol] 3.7 mmol/L 3.5-5.1 [facility] Sodium [Moles/Vol] 140 mmol/L 136-145 [facility] WBC (Bld) [#/Vol] 6.8 10*3/uL 4.4-11.0 [facility] Blood erythrocytes count (nu mber/volume)Ordered By: Dr. Patterson on 02-06-2022 RBC (Bld) [#/Vol] 4.04 10*6/uL 4.6-6.2 [facility] Blood hemoglobin measurement (mass/volume)Ordered By: Dr. Patterson on 02-06-2022 Hemoglobin (Bld) [Mass/Vol] 11.5 g/dL 13.0-16.5 [facility] Blood lymphocytes/100 leukoc ytesOrdered By: Dr. Patterson on 02-06-2022 Lymphocytes/100 WBC (Bld) 25.3 % 19-41 [facility] Blood monocytes/100 leukocyt esOrdered By: Dr. Patterson on 02-06-2022 Monocytes/100 WBC (Bld) 13.1 % 0-10 [facility] Blood platelet mean volumeOr dered By: Dr. Patterson on 02-06-2022 Platelet mean volume (Bld) [Entitic vol] 11.4 fL 6.2-12.0 [facility] Determination of erythrocyte mean corpuscular volume (MCV)Ordered By: Dr. Patterson on 02-06-2022 MCV (RBC) [Entitic vol] 87.4 fL 80-94 [facility] Hematocrit Auto (Bld) [Volum e fraction]Ordered By: Dr. Patterson on 02-06-2022 Hematocrit (Bld) [Volume fraction] 35.3 % 40-54 [facility] - Chemistry and C hemistry - challengeOrdered By: Dr. Patterson on 02-06-2022 CO2 [Moles/Vol] 29.0 mmol/L 21.0-32.0 [facility] Urea nitrogen/Creatinine [Mass ratio] 15.4 mg/mg 10-20 [facility] - Hematology and Cell countsOrdered By: Dr. Patterson on 02-06-2022 Erythrocyte distribution width (RBC) [Entitic vol] 57.6 fL 35.1-43.9 [facility] Erythrocyte distribution width (RBC) [Ratio] 18.2 % 11.6-14.6 [facility] Immature granulocytes/100 WBC (Bld) 0.400 % 0.0-0.9 [facility] Comment on above: IG% - Immature Granu locytes (promyelocytes, myelocytes and metamyelocytes) > 1% indicates that a LEFT SHIFT is Present. MCH (RBC) [Entitic mass] 28.5 pg 27.0-32.0 [facility] Nucleated RBC/100 WBC (Bld) [Ratio] 0 % 0-5 [facility] MCHC Auto (RBC) [Mass/Vol]Or dered By: Dr. Patterson on 02-06-2022 MCHC (RBC) [Mass/Vol] 32.6 g/dL 32-36 [facility] No Panel InformationOrdered By: Dr. Patterson on 02-06-2022 Estimated Creatinine Clearance Calc 66.20 ml/min [facility] Estimated GFR (MDRD) Amer 78 mL/min >60 [facility] Comment on above: GFR Calc Estimated GFR (MDRD) Non-Af Amer 65 mL/min >60 [facility] Comment on above: Non- GFR Calc Platelets bldOrdered By: Dr. Patterson on 02-06-2022 Platelets (Bld) [#/Vol] 190 10*3/uL 150-450 [facility] Serum or plasma calcium desmond urement (mass/volume)Ordered By: Dr. Patterson on 02-06-2022 Calcium [Mass/Vol] 8.8 mg/dL 8.5-10.1 [facility] Serum or plasma creatinine m easurement (mass/volume)Ordered By: Dr. Patterson on 02-06-2022 Creatinine [Mass/Vol] 1.17 mg/dL 0.70-1.30 [facility] Comment on above: The validity of the calculated GFR & GFRAA in patients over 70 years has not been determined. Clinical correlation is essential. Serum or plasma urea nitroge n measurement (mass/volume)Ordered By: Dr. Patterson on 02-06-2022 Urea nitrogen [Mass/Vol] 18 mg/dL 7-18 [facility] Thin prep Papanicolaou smear with manual screeningOrdered By: Dr. Patterson on 02-06-2022 Thin prep Papanicolaou smear with manual screening 7 5-15 [facility] Basophil percentageOrdered B y: Dr. Patterson on 02-05-2022 Bilirubin [Mass/Vol] 1.00 mg/dL 0.20-1.00 [facility] Comment on above: For patients on eltr ombopag therapy, use of Dimension [place] TBIL is not recommended. Cholesterol [Mass/Vol] 101 mg/dL <200 [facility] Comment on above: <200 mg/dL Desirable 200-240 mg/dL Borderline >240 mg/dL High Risk Protein [Mass/Vol] 6.5 g/dL 6.4-8.2 [facility] Triglyceride [Mass/Vol] 75 mg/dL <199 [facility] Comment on above: The drugs N-Acetylcy steine and Metamizole may falsely depress this assay.Serum Triglycerides Reference Interval Normal <150 mg/dL Borderline high 150 - 199 mg/dL High 200 - 499 mg/dL Very High > or = 500 mg/dL Laboratory - Chemistry and C hemistry - challengeOrdered By: Dr. Patterson on 02-05-2022 ALP [Catalytic activity/Vol] 74 U/L 45-117 [facility] ALT [Catalytic activity/Vol] 17 U/L 16-61 [facility] Globulin (S) [Mass/Vol] 3.1 g/dL 2.2-4.2 [facility] Magnesium [Mass/Vol] 2.3 mg/dL 1.6-2.6 [facility] No Panel InformationOrdered By: Dr. Patterson on 02-05-2022 Thyroid Stimulating Hormone (TSH) 2.43 uIU/mL 0.358-3.74 [facility] Serum or plasma albumin desmond urement (mass/volume)Ordered By: Dr. Patterson on 02-05-2022 Albumin [Mass/Vol] 3.4 g/dL 3.2-5.0 [facility] Serum or plasma albumin/glob ulin mass ratioOrdered By: Dr. Patterson on 02-05-2022 Albumin/Globulin [Mass ratio] 1.1 {ratio} 0.9-2.4 [facility] Serum or plasma cholesterol in HDL measurement (mass/volume)Ordered By: Dr. Patterson on 02-05-2022 Cholesterol in HDL [Mass/Vol] 52 mg/dL >40 [facility] Comment on above: The drugs N-Acetylcy steine and Metamizole may falsely depress this assay. Reference Range HDL <40 mg/dL Low HDL Cholesterol HDL >or= 60 mg/dL High HDL Cholesterol Serum or plasma cholesterol in VLDL measurement (mass/volume)Ordered By: Dr. Patterson on 02-05-2022 Cholesterol in VLDL [Mass/Vol] 15 mg/dL 5-40 [facility] Serum or plasma low density lipoprotein (LDL) cholesterol measurement (mass/volume)Ordered By: Dr. Patterson on 02-05-2022 Cholesterol in LDL [Mass/Vol] 34 mg/dL 0-130 [facility] Thin prep Papanicolaou smear with manual screeningOrdered By: Dr. Patterson on 02-05-2022 Thin prep Papanicolaou smear with manual screening 16 U/L 15-37 [facility] Absolute lymphocyte counton 02-04-2022 Lymphocytes Auto (Unsp spec) [#/Vol] 1.61 10*3/uL 0.83-4.51 [facility] Work Phone: Basophil percentageon 2021 Basophils/100 WBC (Bld) 0.6 % 0-1 [facility] Work Phone: Chloride [Moles/Vol] 105 mmol/L 98-107 [facility] Work Phone: Eosinophils/100 WBC (Bld) 1.2 % 0-5 [facility] Work Phone: Glucose [Mass/Vol] 125 mg/dL 74-106 [facility] Work Phone: Comment on above: Fasting Glucose resu lt from 100 to 125 mg/dL suggests IMPAIRED HOMEOSTASIS per A.D.A. criteria. Neutrophils (Bld) [#/Vol] 4.5 10*3/uL 2.0-7.7 [facility] Work Phone: Neutrophils/100 WBC (Bld) 61.6 % 47-70 [facility] Work Phone: Potassium [Moles/Vol] 3.6 mmol/L 3.5-5.1 [facility] Work Phone: Sodium [Moles/Vol] 139 mmol/L 136-145 [facility] Work Phone: WBC (Bld) [#/Vol] 7.2 10*3/uL 4.4-11.0 [facility] Work Phone: Blood erythrocytes count (nu mber/volume)on 02-04-2022 RBC (Bld) [#/Vol] 4.56 10*6/uL 4.6-6.2 [facility] Work Phone: Blood hemoglobin measurement (mass/volume)on 02-04-2022 Hemoglobin (Bld) [Mass/Vol] 13.0 g/dL 13.0-16.5 [facility] Work Phone: Blood lymphocytes/100 leukoc yteson 02-04-2022 Lymphocytes/100 WBC (Bld) 22.2 % 19-41 [facility] Work Phone: [phone] Blood monocytes/100 leukocyt eson 02-04-2022 Monocytes/100 WBC (Bld) 14.0 % 0-10 [facility] Work Phone: [phone] Blood platelet mean volumeon 02-04-2022 Platelet mean volume (Bld) [Entitic vol] 11.7 fL 6.2-12.0 [facility] Work Phone: [phone] Determination of erythrocyte mean corpuscular volume (MCV)on 02-04-2022 MCV (RBC) [Entitic vol] 86.8 fL 80-94 [facility] Work Phone: [phone] Hematocrit Auto (Bld) [Volum e fraction]on 02-04-2022 Hematocrit (Bld) [Volume fraction] 39.6 % 40-54 [facility] Work Phone: Laboratory - Chemistry and C hemistry - challengeon 02-04-2022 CO2 [Moles/Vol] 29.0 mmol/L 21.0-32.0 [facility] Work Phone: Urea nitrogen/Creatinine [Mass ratio] 7.2 mg/mg 10-20 [facility] Work Phone: [phone] Laboratory - Hematology and Cell countson 02-04-2022 Erythrocyte distribution width (RBC) [Entitic vol] 55.8 fL 35.1-43.9 [facility] Work Phone: [phone] Erythrocyte distribution width (RBC) [Ratio] 17.7 % 11.6-14.6 [facility] Work Phone: [phone] Immature granulocytes/100 WBC (Bld) 0.400 % 0.0-0.9 [facility] Work Phone: [phone] Comment on above: IG% - Immature Granu locytes (promyelocytes, myelocytes and metamyelocytes) > 1% indicates that a LEFT SHIFT is Present. MCH (RBC) [Entitic mass] 28.5 pg 27.0-32.0 [facility] Work Phone: Nucleated RBC/100 WBC (Bld) [Ratio] 0 % 0-5 [facility] Work Phone: MCHC Auto (RBC) [Mass/Vol]on 02-04-2022 MCHC (RBC) [Mass/Vol] 32.8 g/dL 32-36 [facility] Work Phone: No Panel InformationOrdered By: Dr. Cochran on 02-04-2022 Troponin I High Sensitivity 388 pg/mL 3.0-78.0 [facility] Comment on above: Critical Result(s) C alled at: 13:14:25 02/04/2022 by: Karen Alcocer. Results read back by same. Please Note: New Test Units and Gender Specific Reference Ranges. For more information see Policy Stat Procedure [place] High Sensitivity Troponin (TNIH) and attachments. No Panel Informationon 02-04 Estimated Creatinine Clearance Calc 65.98 ml/min [facility] Work Phone: Estimated GFR (MDRD) Amer 83 mL/min >60 [facility] Work Phone: Comment on above: GFR Calc Estimated GFR (MDRD) Non-Af Amer 69 mL/min >60 [facility] Work Phone: Comment on above: Non- GFR Calc Platelets bldon 02-04-2022 Platelets (Bld) [#/Vol] 217 10*3/uL 150-450 [facility] Work Phone: Serum or plasma calcium desmond urement (mass/volume)on 02-04-2022 Calcium [Mass/Vol] 9.3 mg/dL 8.5-10.1 [facility] Work Phone: [phone] Serum or plasma creatinine m easurement (mass/volume)on 02-04-2022 Creatinine [Mass/Vol] 1.11 mg/dL 0.70-1.30 [facility] Work Phone: Comment on above: The validity of the calculated GFR & GFRAA in patients over 70 years has not been determined. Clinical correlation is essential. Serum or plasma urea nitroge n measurement (mass/volume)on 02-04-2022 Urea nitrogen [Mass/Vol] 8 mg/dL 7-18 [facility] Work Phone: Thin prep Papanicolaou smear with manual screeningon 02-04-2022 Thin prep Papanicolaou smear with manual screening 5 5-15 [facility] Work Phone: Absolute lymphocyte counton 11-10-2021 Lymphocytes Auto (Unsp spec) [#/Vol] 1.35 10*3/uL 0.83-4.51 [facility] Work Phone: Basophil percentageon 2021 Basophils/100 WBC (Bld) 0.8 % 0-1 [facility] Work Phone: Bilirubin [Mass/Vol] 1.00 mg/dL 0.20-1.00 [facility] Work Phone: Comment on above: For patients on eltr ombopag therapy, use of Dimension [place] TBIL is not recommended. Chloride [Moles/Vol] 100 mmol/L 98-107 [facility] Work Phone: Eosinophils/100 WBC (Bld) 1.8 % 0-5 [facility] Work Phone: Glucose [Mass/Vol] 103 mg/dL 74-106 [facility] Work Phone: Comment on above: Fasting Glucose resu lt from 100 to 125 mg/dL suggests IMPAIRED HOMEOSTASIS per A.D.A. criteria. Neutrophils (Bld) [#/Vol] 4.9 10*3/uL 2.0-7.7 [facility] Work Phone: Neutrophils/100 WBC (Bld) 64.8 % 47-70 [facility] Work Phone: Potassium [Moles/Vol] 3.3 mmol/L 3.5-5.1 [facility] Work Phone: Protein [Mass/Vol] 7.5 g/dL 6.4-8.2 [facility] Work Phone: [phone] Sodium [Moles/Vol] 137 mmol/L 136-145 [facility] Work Phone: [phone] WBC (Bld) [#/Vol] 7.6 10*3/uL 4.4-11.0 [facility] Work Phone: [phone] Blood erythrocytes count (nu mber/volume)on 11-10-2021 RBC (Bld) [#/Vol] 4.30 10*6/uL 4.6-6.2 [facility] Work [facility]: [phone] Blood hemoglobin measurement (mass/volume)on 11-10-2021 Hemoglobin (Bld) [Mass/Vol] 12.3 g/dL 13.0-16.5 [facility] Work Phone: [phone] Blood lymphocytes/100 leukoc yteson 11-10-2021 Lymphocytes/100 WBC (Bld) 17.7 % 19-41 [facility] Work Phone: [phone] Blood monocytes/100 leukocyt eson 11-10-2021 Monocytes/100 WBC (Bld) 14.4 % 0-10 [facility] Work Phone: [phone] Blood platelet mean volumeon 11-10-2021 Platelet mean volume (Bld) [Entitic vol] 11.6 fL 6.2-12.0 [facility] Work Phone: [phone] Determination of erythrocyte mean corpuscular volume (MCV)on 11-10-2021 MCV (RBC) [Entitic vol] 86.3 fL 80-94 [facility] Work Phone: [phone] Hematocrit Auto (Bld) [Volum e fraction]on 11-10-2021 Hematocrit (Bld) [Volume fraction] 37.1 % 40-54 [facility] Work Phone: [phone] Laboratory - Chemistry and C hemistry - challengeon 11-10-2021 ALP [Catalytic activity/Vol] 91 U/L 45-117 [facility] Work Phone: [phone] ALT [Catalytic activity/Vol] 15 U/L 16-61 [facility] Work Phone: CO2 [Moles/Vol] 30.0 mmol/L 21.0-32.0 [facility] Work Phone: [phone] Globulin (S) [Mass/Vol] 4.1 g/dL 2.2-4.2 [facility] Work Phone: [phone] Urea nitrogen/Creatinine [Mass ratio] 11.8 mg/mg 10-20 [facility] Work Phone: [phone] Laboratory - Hematology and Cell countson 11-10-2021 Erythrocyte distribution width (RBC) [Entitic vol] 53.1 fL 35.1-43.9 [facility] Work Phone: [phone] Erythrocyte distribution width (RBC) [Ratio] 17.0 % 11.6-14.6 [facility] Work Phone: [phone] Immature granulocytes/100 WBC (Bld) 0.500 % 0.0-0.9 [facility] Work Phone: [phone] Comment on above: IG% - Immature Granu locytes (promyelocytes, myelocytes and metamyelocytes) > 1% indicates that a LEFT SHIFT is Present. MCH (RBC) [Entitic mass] 28.6 pg 27.0-32.0 [facility] Work Phone: [phone] Nucleated RBC/100 WBC (Bld) [Ratio] 0 % 0-5 [facility] Work Phone: [phone] MCHC Auto (RBC) [Mass/Vol]on 11-10-2021 MCHC (RBC) [Mass/Vol] 33.2 g/dL 32-36 [facility] Work Phone: [phone] No Panel Informationon 11-10 Estimated GFR (MDRD) Amer 92 mL/min >60 [facility] Work Phone: [phone] Comment on above: GFR Calc Estimated GFR (MDRD) Non-Af Amer 76 mL/min >60 [facility] Work Phone: [phone] Comment on above: Non- GFR Calc Platelets bldon 11-10-2021 Platelets (Bld) [#/Vol] 268 10*3/uL 150-450 [facility] Work Phone: Serum or plasma albumin desmond urement (mass/volume)on 11-10-2021 Albumin [Mass/Vol] 3.4 g/dL 3.2-5.0 [facility] Work Phone: Serum or plasma albumin/glob ulin mass ratioon 11-10-2021 Albumin/Globulin [Mass ratio] 0.8 {ratio} 0.9-2.4 [facility] Work Phone: Serum or plasma calcium desmond urement (mass/volume)on 11-10-2021 Calcium [Mass/Vol] 8.9 mg/dL 8.5-10.1 [facility] Work Phone: Serum or plasma creatinine m easurement (mass/volume)on 11-10-2021 Creatinine [Mass/Vol] 1.02 mg/dL 0.70-1.30 [facility] Work Phone: Comment on above: The validity of the calculated GFR & GFRAA in patients over 70 years has not been determined. Clinical correlation is essential. Serum or plasma urea nitroge n measurement (mass/volume)on 11-10-2021 Urea nitrogen [Mass/Vol] 12 mg/dL 7-18 [facility] Work Phone: Thin prep Papanicolaou smear with manual screeningon 11-10-2021 Thin prep Papanicolaou smear with manual screening 16 U/L 15-37 [facility] Work Phone: Thin prep Papanicolaou smear with manual screening 7 5-15 [facility] Work Phone: XR CHEST 2 VIEW PA+LATon XR CHEST 2 VIEW PA+LAT EXAMINATION: XR C HEST 2 VIEW PA+LAT 11/06/2021 10:47 AM CLINICAL HISTORY: Reason for Exam: Dyspnea ASSOCIATED DIAGNOSIS: Dyspnea, unspecified type ORDERING PROVIDER: MARIA FERNANDA [employer] NOTE: COMPARISON: None FINDINGS: Cardiomediastinal silhouette: Normal. Cardiac pacemaker device is noted with the leads in the right atrium and right ventricle. Lungs/Pleura: No focal pulmonary consolidation, effusion or pneumothorax. Musculoskeletal: Unremarkable. IMPRESSION: No acute cardiopulmonary abnormality identified. MACRO: None Normal [facility] XR Chest PA and Lateralon EXAMINATION: XR CHES T 2 VIEW PA+LAT 11/06/2021 10:47 AM CLINICAL HISTORY: Reason for Exam: Dyspnea ASSOCIATED DIAGNOSIS: Dyspnea, unspecified type ORDERING PROVIDER: MARIA FERNANDA [employer] NOTE: COMPARISON: None FINDINGS: Cardiomediastinal silhouette: Normal. Cardiac pacemaker device is noted with the leads in the right atrium and right ventricle. Lungs/Pleura: No focal pulmonary consolidation, effusion or pneumothorax. Musculoskeletal: Unremarkable. IMPRESSION: No acute cardiopulmonary abnormality identified. MACRO: None RADIOLOGY Isaias Alvarez MD - 11/06/2021 EXAMINATION: XR CHEST 2 VIEW PA+LAT 11/06/2021 10:47 AM CLINICAL HISTORY: Reason for Exam: Dyspnea ASSOCIATED DIAGNOSIS: Dyspnea, unspecified type ORDERING PROVIDER: MARIA FERNANDA [employer] NOTE: COMPARISON: None FINDINGS: Cardiomediastinal silhouette: Normal. Cardiac pacemaker device is noted with the leads in the right atrium and right ventricle. Lungs/Pleura: No focal pulmonary consolidation, effusion or pneumothorax. Musculoskeletal: Unremarkable. IMPRESSION: No acute cardiopulmonary abnormality identified. MACRO: None [facility] Radiology Study observation (narrative) [facility] XR Chest PA and LateralOrder ed By: Isaias Alvarez on 11-06-2021 [facility] Work Phone: Absolute lymphocyte counton 09-01-2021 Lymphocytes Auto (Unsp spec) [#/Vol] 2.18 10*3/uL 0.83-4.51 [facility] Work Phone: Basophil percentageon 2021 Basophils/100 WBC (Bld) 0.4 % 0-1 [facility] Work Phone: Bilirubin [Mass/Vol] 0.90 mg/dL 0.20-1.00 [facility] Work Phone: Comment on above: For patients on eltr ombopag therapy, use of Dimension [place] TBIL is not recommended. Chloride [Moles/Vol] 103 mmol/L 98-107 [facility] Work Phone: Eosinophils/100 WBC (Bld) 1.9 % 0-5 [facility] Work Phone: Glucose [Mass/Vol] 86 mg/dL 74-106 [facility] Work Phone: Neutrophils (Bld) [#/Vol] 4.0 10*3/uL 2.0-7.7 [facility] Work Phone: Neutrophils/100 WBC (Bld) 53.9 % 47-70 [facility] Work Phone: Potassium [Moles/Vol] 3.2 mmol/L 3.5-5.1 [facility] Work Phone: Protein [Mass/Vol] 7.0 g/dL 6.4-8.2 [facility] Work Phone: Sodium [Moles/Vol] 139 mmol/L 136-145 [facility] Work Phone: WBC (Bld) [#/Vol] 7.4 10*3/uL 4.4-11.0 [facility] Work Phone: Blood erythrocytes count (nu mber/volume)on 09-01-2021 RBC (Bld) [#/Vol] 4.42 10*6/uL 4.6-6.2 [facility] Work Phone: Blood hemoglobin measurement (mass/volume)on 09-01-2021 Hemoglobin (Bld) [Mass/Vol] 12.3 g/dL 13.0-16.5 [facility] Work Phone: Blood lymphocytes/100 leukoc yteson 09-01-2021 Lymphocytes/100 WBC (Bld) 29.5 % 19-41 [facility] Work Phone: Blood monocytes/100 leukocyt eson 09-01-2021 Monocytes/100 WBC (Bld) 13.9 % 0-10 [facility] Work Phone: Blood platelet mean volumeon 09-01-2021 Platelet mean volume (Bld) [Entitic vol] 12.5 fL 6.2-12.0 [facility] Work Phone: [phone] Determination of erythrocyte mean corpuscular volume (MCV)on 09-01-2021 MCV (RBC) [Entitic vol] 86.4 fL 80-94 [facility] Work Phone: [phone] Hematocrit Auto (Bld) [Volum e fraction]on 09-01-2021 Hematocrit (Bld) [Volume fraction] 38.2 % 40-54 [facility] Work Phone: [phone] Laboratory - Chemistry and C hemistry - challengeon 09-01-2021 ALP [Catalytic activity/Vol] 77 U/L 45-117 [facility] Work Phone: [phone] [Catalytic activity/Vol] 29 U/L 16-61 [facility] Work Phone: [phone] CO2 [Moles/Vol] 28.0 mmol/L 21.0-32.0 [facility] Work Phone: [phone] Globulin (S) [Mass/Vol] 3.4 g/dL 2.2-4.2 [facility] Work Phone: [phone] Urea nitrogen/Creatinine [Mass ratio] 12.5 mg/mg 10-20 [facility] Work Phone: [phone] Laboratory - Hematology and Cell countson 09-01-2021 Erythrocyte distribution width (RBC) [Entitic vol] 52.3 fL 35.1-43.9 [facility] Work Phone: [phone] Erythrocyte distribution width (RBC) [Ratio] 16.6 % 11.6-14.6 [facility] Work Phone: [phone] Immature granulocytes/100 WBC (Bld) 0.400 % 0.0-0.9 [facility] Work Phone: [phone] Comment on above: IG% - Immature Granu locytes (promyelocytes, myelocytes and metamyelocytes) > 1% indicates that a LEFT SHIFT is Present. MCH (RBC) [Entitic mass] 27.8 pg 27.0-32.0 [facility] Work Phone: [phone] Nucleated RBC/100 WBC (Bld) [Ratio] 0 % 0-5 [facility] Work Phone: MCHC Auto (RBC) [Mass/Vol]on 09-01-2021 MCHC (RBC) [Mass/Vol] 32.2 g/dL 32-36 [facility] Work Phone: No Panel Informationon 09-01 Estimated GFR (MDRD) Amer 83 mL/min >60 [facility] Work Phone: [phone] Comment on above: GFR Calc Estimated GFR (MDRD) Non-Af Amer 68 mL/min >60 [facility] Work Phone: Comment on above: Non- GFR Calc Platelets bldon 09-01-2021 Platelets (Bld) [#/Vol] 201 10*3/uL 150-450 [facility] Work Phone: Serum or plasma albumin desmond urement (mass/volume)on 09-01-2021 Albumin [Mass/Vol] 3.6 g/dL 3.2-5.0 [facility] Work Phone: Serum or plasma albumin/glob ulin mass ratioon 09-01-2021 Albumin/Globulin [Mass ratio] 1.1 {ratio} 0.9-2.4 [facility] Work Phone: Serum or plasma calcium desmond urement (mass/volume)on 09-01-2021 Calcium [Mass/Vol] 8.9 mg/dL 8.5-10.1 [facility] Work Phone: [phone] Serum or plasma creatinine m easurement (mass/volume)on 09-01-2021 Creatinine [Mass/Vol] 1.12 mg/dL 0.70-1.30 [facility] Work Phone: Comment on above: The validity of the calculated GFR & GFRAA in patients over 70 years has not been determined. Clinical correlation is essential. Serum or plasma urea nitroge n measurement (mass/volume)on 09-01-2021 Urea nitrogen [Mass/Vol] 14 mg/dL 7-18 [facility] Work Phone: Thin prep Papanicolaou smear with manual screeningon 09-01-2021 Thin prep Papanicolaou smear with manual screening 22 U/L 15-37 [facility] Work Phone: Thin prep Papanicolaou smear with manual screening 8 5-15 [facility] Work Phone: US KIDNEYon 06-17-2021 [place] [id number] [place] [id number] Patient: BRANDON KULKARNI Phone#: : 1945 Age: 75 Gender: M Pt. Type: Out Account: [id number] Location: [facility] Ordering: SOLO MADRIGAL Exam Date: 06/17/2021/11:06 Family Phys: Charge Code: [id number] Physician: [place] Order #: [id number] DLP Dose#: PROCEDURE: KIDNEY ULTRASOUND COMPARISON: None. INDICATIONS: Abnormal x-ray TECHNIQUE: Ultrasound examination was performed of the kidneys and bladder. FINDINGS: RIGHT KIDNEY: Renal parenchymal thinning. Normal renal parenchymal echogenicity. No hydronephrosis. The right kidney measures 9.3 x 5.6 x 5.3 cm. LEFT KIDNEY: Renal parenchymal thinning. Mild increased renal parenchymal echogenicity. The kidney measures 12.6 x 5.5 x 7.5 cm. There is a cyst in the left kidney measuring 1.6 cm. No hydronephrosis. There are echogenic foci within the renal cortex without shadowing. OTHER: Negative. CONCLUSION: 1. Medical renal disease 2. No hydronephrosis 3. Left renal cyst 4. Indeterminate left-sided echogenicities within the renal cortex, possibly representing nonshadowing calcifications. Dictated by: Mattie Ornelas MD on 06/17/2021 at 19:31 Approved by: Mattie Ornelas MD on 06/17/2021 at 19:34 Normal [facility] Absolute lymphocyte counton 06-10-2021 Lymphocytes Auto (Unsp spec) [#/Vol] 1.53 10*3/uL 0.83-4.51 [facility] Work Phone: Basophil percentageon 2021 Basophils/100 WBC (Bld) 0.7 % 0-1 [facility] Work Phone: Bilirubin [Mass/Vol] 0.90 mg/dL 0.20-1.00 [facility] Work Phone: Comment on above: For patients on eltr ombopag therapy, use of Dimension [place] TBIL is not recommended. Chloride [Moles/Vol] 101 mmol/L 98-107 [facility] Work Phone: Eosinophils/100 WBC (Bld) 1.4 % 0-5 [facility] [place] Work Phone: Glucose [Mass/Vol] 110 mg/dL 74-106 [facility] Work Phone: Comment on above: Fasting Glucose resu lt from 100 to 125 mg/dL suggests IMPAIRED HOMEOSTASIS per A.D.A. criteria. Neutrophils (Bld) [#/Vol] 4.4 10*3/uL 2.0-7.7 [facility] [place] Work Phone: Neutrophils/100 WBC (Bld) 63.1 % 47-70 [facility] [place] Work Phone: Potassium [Moles/Vol] 3.0 mmol/L 3.5-5.1 [facility] Work Phone: Protein [Mass/Vol] 7.7 g/dL 6.4-8.2 [facility] Work Phone: Sodium [Moles/Vol] 137 mmol/L 136-145 [facility] Work Phone: WBC (Bld) [#/Vol] 7.0 10*3/uL 4.4-11.0 [facility] Work Phone: Blood erythrocytes count (nu mber/volume)on 06-10-2021 RBC (Bld) [#/Vol] 4.57 10*6/uL 4.6-6.2 [facility] Work Phone: Blood hemoglobin measurement (mass/volume)on 06-10-2021 Hemoglobin (Bld) [Mass/Vol] 12.8 g/dL 13.0-16.5 [facility] [place] Work Phone: Blood lymphocytes/100 leukoc yteson 06-10-2021 Lymphocytes/100 WBC (Bld) 21.8 % 19-41 [facility] [place] Work Phone: Blood monocytes/100 leukocyt eson 06-10-2021 Monocytes/100 WBC (Bld) 12.6 % 0-10 [facility] Work Phone: Blood platelet mean volumeon 06-10-2021 Platelet mean volume (Bld) [Entitic vol] 12.6 fL 6.2-12.0 [facility] [place] Work Phone: Determination of erythrocyte mean corpuscular volume (MCV)on 06-10-2021 MCV (RBC) [Entitic vol] 86.4 fL 80-94 [facility] Work Phone: Erythrocyte sedimentation ra filomena 06-10-2021 ESR (Bld) [Velocity] 43 mm/h 0-20 [facility]: Hematocrit Auto (Bld) [Volum e fraction]on 06-10-2021 Hematocrit (Bld) [Volume fraction] 39.5 % 40-54 [facility] [place] Work Phone: Laboratory - Chemistry and C hemistry - challengeon 06-10-2021 ALP [Catalytic activity/Vol] 104 U/L 45-117 [facility] [place] Work Phone: ALT [Catalytic activity/Vol] 24 U/L 16-61 [facility] [place] Work Phone: CO2 [Moles/Vol] 26.0 mmol/L 21.0-32.0 [facility] [place] Work Phone: Globulin (S) [Mass/Vol] 3.9 g/dL 2.2-4.2 [facility] Work Phone: Urea nitrogen/Creatinine [Mass ratio] 10.1 mg/mg 10-20 [facility] [place] Work Phone: [phone] Laboratory - Hematology and Cell countson 06-10-2021 Erythrocyte distribution width (RBC) [Entitic vol] 49.5 fL 35.1-43.9 [facility] [place] Work Phone: [phone] Erythrocyte distribution width (RBC) [Ratio] 15.7 % 11.6-14.6 [facility] [place] Work Phone: [phone] Immature granulocytes/100 WBC (Bld) 0.400 % 0.0-0.9 [facility] [place] Work Phone: [phone] Comment on above: IG% - Immature Granu locytes (promyelocytes, myelocytes and metamyelocytes) > 1% indicates that a LEFT SHIFT is Present. MCH (RBC) [Entitic mass] 28.0 pg 27.0-32.0 [facility] [place] Work Phone: [phone] Nucleated RBC/100 WBC (Bld) [Ratio] 0 % 0-5 [facility] [place] Work Phone: [phone] MCHC Auto (RBC) [Mass/Vol]on 06-10-2021 MCHC (RBC) [Mass/Vol] 32.4 g/dL 32-36 [facility] Work Phone: [phone] No Panel Informationon 06-10 Anti-Nuclear Antibody Screen Negative Negative [facility] [place] Work Phone: [phone] Comment on above: Performed at: [address] [id number] Director: Mike Contreras PhD, Phone: [phone] Estimated GFR (MDRD) Amer 85 mL/min >60 [facility] [place] Work Phone: [phone] Comment on above: GFR Calc Estimated GFR (MDRD) Non-Af Amer 70 mL/min >60 [facility] [place] Work Phone: [phone] Comment on above: Non- GFR Calc Hepatitis B Surface Antigen Non-Reactive Nonreactive [facility] [place] Work Phone: [phone] Hepatitis C Antibody Non-Reactive Nonreactive [facility] Work Phone: [phone] Comment on above: Non Reactive: < 0.8 Equivocal: >/= 0.8 to < 1.0 Reactive: >/= 1.0The CDC recommends that a reactive/equivocal HCV antibody result be followed up by the HCV Nucleic Acid Amplificationtest (537066) Platelets bldon 06-10-2021 Platelets (Bld) [#/Vol] 201 10*3/uL 150-450 [facility] [place] Work Phone: Qualitative QuantiFERON-TB g old in tube teston 06-10-2021 M. tuberculosis tuberculin stim IFN-g Ql (Bld) 0.06 IU/mL [facility] [place] Work Phone: Serum cyclic citrullinated p eptide IgG antibody assay (units/volume)on 06-10-2021 Cyclic citrullinated peptide IgG Qn 231 units [facility] [place] Work Phone: Comment on above: Negative <20 Weak po sitive 20 - 39 Moderate positive 40 - 59 Strong positive >59Performed at: [facility] [address] [id number] Director: Mike Contreras PhD, Phone: [phone] at: [facility] [address] [id number] Director: Thea Pritchard MD, Phone: [phone] Serum hepatitis B virus surf keith antibody IgG detectionon 06-10-2021 HBV surface IgG Ql (S) Non-Reactive [facility] [place] Work Phone: Comment on above: Non Reactive: Incons istent with immunity less than <10 mIU/mL Reactive: Consistent with immunity greater than or equal to 10 mIU/mL Serum or plasma C reactive p rotein measurement (mass/volume)on 06-10-2021 CRP [Mass/Vol] 18.10 mg/L 0.0-3.0 [facility] [place] Work Phone: Comment on above: C-Reactive Protein ( CRP) provides useful information for thediagnosis, therapy and monitoring of inflammatory processesand associated diseases. For the evaluation of Relative Riskfor Cardiovascular Disease, a High Sensitivity CRP (HSCRP)should be ordered. Serum or plasma albumin desmond urement (mass/volume)on 06-10-2021 Albumin [Mass/Vol] 3.8 g/dL 3.2-5.0 [facility] Work Phone: Serum or plasma albumin/glob ulin mass ratioon 06-10-2021 Albumin/Globulin [Mass ratio] 1.0 {ratio} 0.9-2.4 [facility] [place] Work Phone: Serum or plasma calcium desmond urement (mass/volume)on 06-10-2021 Calcium [Mass/Vol] 8.7 mg/dL 8.5-10.1 [facility] Work Phone: [phone] Serum or plasma creatinine m easurement (mass/volume)on 06-10-2021 Creatinine [Mass/Vol] 1.09 mg/dL 0.70-1.30 [facility] Work Phone: Comment on above: The validity of the calculated GFR & GFRAA in patients over 70 years has not been determined. Clinical correlation is essential. Serum or plasma urea nitroge n measurement (mass/volume)on 06-10-2021 Urea nitrogen [Mass/Vol] 11 mg/dL 7-18 [facility] [place] Work Phone: Serum or plasma uric acid me asurement (mass/volume)on 06-10-2021 Urate [Mass/Vol] 5.3 mg/dL 3.5-7.2 [facility] [place] Work Phone: Comment on above: The drugs N-Acetylcy steine and Metamizole may falsely depress this assay. Serum rheumatoid factor dete ctionon 06-10-2021 Rheumatoid factor Ql (S) < 10.0 IU/mL <15 [facility] [place] Work Phone: [phone] Thin prep Papanicolaou smear with manual screeningon 06-10-2021 Thin prep Papanicolaou smear with manual screening 18 U/L 15-37 [facility] [place] Work Phone: [phone] Thin prep Papanicolaou smear with manual screening 10 5-15 [facility] [place] Work Phone: [phone] Thin prep Papanicolaou smear with manual screening Comment [facility] [place] Work Phone: Comment on above: The QuantiFERON-TB G old Plus result is determined bysubtracting the Nil value from either TB antigen (Ag) tube.The mitogen tube serves as a control for the test. Thin prep Papanicolaou smear with manual screening 0.07 IU/mL [facility] [place] Work Phone: [phone] Thin prep Papanicolaou smear with manual screening 0.08 IU/mL [facility] [place] Work Phone: [phone] Thin prep Papanicolaou smear with manual screening > 10.00 IU/mL [facility] [place] Work Phone: [phone] Thin prep Papanicolaou smear with manual screening Negative Negative [facility] [place] Work Phone: [phone] Comment on above: The specimen receive d for QuantiFERON testing was incubatedby the ordering institution. Specific procedures outlinedin our Directory of Services and in the package insert forthe QuantiFERON Gold (In Tube) test must be followed toenable for proper stimulation of cells for the productionof interferon gamma. Chemiluminescence immunoassaymethodology CELL COUNT, OTHER FLUIDon CELL COUNT, OTHER FLUID Normal [facility] Comment on above: Result Comment: CELL COUNT OTHER FLUID SPECIMEN _LEFT_ELBOW-SYNOVIAL__ 04/21/21.CWB. APPEARANCE _WHITE____ 04/21/21.CWB. CLOUDY WBC's per UL _1500____ 04/21/21.CWB. RBC's per UL _500 04/21/21.CWB. SEGS (%) _27 04/21/21.CWB. BANDS (%) LYMPHS (%) _22 04/21/21.CWB. MONO (%) _51 04/21/21.CWB. Performed By: #### 2 [id number] #### [facility],[address] [place] [address] CRYSTALS-FLUIDon 04-21-2021 CRYSTALS-FLUID Normal [facility] Comment on above: Result Comment: FREDERICK TALKurt -FLUID CRYSTALS _POSITIVE (NEGATIVE ) 04/21/21.1848.CWB. MANY MONOSODIUM URATE CRYSTALS SEEN Performed By: #### 2 [id number] ####[facility],[address] [place] [address] CULTURE BODY FLUIDon CULTURE BODY FLUID CULTURE BODY FLUID _BODY FLUID CULTURE_ M I C R O B I O L O G Y R E P O R T FINAL Antimicrobial Susceptibility and Organism Identification Report Specimen Number : [id number] Requested : 04/21/21 Specimen Source : BODY FLUID Collected : 04/21/21 09:00 [place] [facility] : OUTPATIENT Received : 04/21/21 09:00 Requesting Physician : JUANA KULKARNI Patient/Specimen Tests and Comments Specimen Comments FINAL REPORT: NO GROWTH AT 48 HOURS SOURCE: LEFT ELBOW Tech : ___ Source : BODY FLUID ID # : [id number] FINAL Report Date : / / : Collected : 04/21/21 09:00 04/24/21.145.KLS. 04/23/21142.KLS. 04/24/21.KLS.COMPL ETE Normal [facility] Comment on above: Performed By: #### 2 41292 ####[facility],[address] [place] [address] GRAM STAIN ROUTINEon 022 GRAM STAIN ROUTINE GRAM STAIN ROUTINE GRAM STAIN ROUTINE SOURCE _LEFT_ELBOW 04/22/21.1143.BKO. AMOUNT DESCRIPTION _NO_ORGANISMS_SEEN 04/22/21.1143.BKO. Normal [facility] Comment on above: Performed By: #### 2 31092 ####[address] [address] LANA BY IFA SCREEN [CCL]on LANA Pattern Negative Normal [facility] Comment on above: Result Comment: [place] [address] [place] [address] Erickson Gomez III, M.D. [id number] Performed By: #### 2 12528 ####[address] [address] LANA Titer Negative Normal NEGAT [facility] Comment on above: Result Comment: Norm al range : negative at <1:80 serum dilution. Performed By: #### 2 14012 ####[address] [address] Nuclear Ab IF (S) [Titer] Negative [facility]: Result Comment: Norm al range : negative at <1:80 serum dilution. Approximately 6% of patients with connective tissue diseases with low positive EIA values are negative by IFA. Recommend follow-up with specific antinuclear antibodies if clinically indicated. Test performed using Indirect Fluorescence Immunoassay technology (IFA) using HEp-2 cells. Performed By: #### 2 66523 ####[facility],[address] [place] [address] LANA by IFAon 03-16-2021 LANA Pattern ANANOT Normal [facility] [place] [facility] Comment on above: Performed By: #### C CP, ANAIFS, CRITH #### [facility]o [facility] [address] #### AHBSQ, RF, AHCV1B #### [facility] Routine [facility] [place] [address] LANA Titer Normal Negative [facility] [place] [facility] Comment on above: Result Comment: Nega tive Normal range : negatie at <1:80 serum dilution. Performed By: #### C CP, ANAIFS, CRITH #### [facility] [address] [address] #### AHBSQ, RF, AHCV1B #### [facility] [address] [address] Nuclear Ab IF (S) [Titer] Negative Normal Negative [facility] [place] [facility] Comment on above: Performed By: #### C CP, ANAIFS, CRITH #### [facility] [address] [place] [address] #### AHBSQ, RF, AHCV1B #### [facility] [address] [place] [address] CCP Antibody, IgGon 03-16-20 21 CCP Antibody, IgG <15 Normal <20 [facility] Comment on above: Performed By: #### C CP, ANAIFS, CRITH #### [facility] [address] [place] [address] #### AHBSQ, RF, AHCV1B #### [facility] [address] [address] CRITHIDIA LUCILIAE [CCL]on 05-17-2020 Crithidia luciliae Negative Normal NEGAT [facility] Comment on above: Result Comment: [facility] [address] [id number] Erickson Gomez III, M.D. [id number] Performed By: #### 2 89953 #### [facility],[address] [place] [address] CYCLIC CITRULLINATED PEP AB IGG [CCL]on 03-16-2021 CCP Antibody, IgG <15 Normal <20 [facility] Comment on above: Result Comment: < 20 units: Negative 20-39 units: Weak Positive 40-59 units: Moderate Positive > 60 units: Strong Positive The following results were obtained with the [employer] QUANTA Lite CCP3 IgG JESSE. Anti-CCP values obtained with different manufacturers' assay methods may not be used interchangeably. The magnitude of the reported IgG levels cannot be correlated to an endpoint titer. [place] [id number] Erickson Gomez III, M.D. [id number] Performed By: #### 2 90989 #### [facility],[address] [place], [place] [id number] Crithidia luciliaeon 021 Crithidia luciliae NEGAT Normal Negative [facility] Comment on above: Performed By: #### C CP, ANAIFS, CRITH #### [facility] [address] [place] [address] #### AHBSQ, RF, AHCV1B #### [facility] [address] [place] [address] HEP B SURFACE AB, QUANT [CCL ]on 03-16-2021 HepB SurfaceAb,Quant <8.00 Normal <8.00 [facility] Comment on above: Result Comment: No e vidence of antibodies to [place] [address] Erickson Gomez III, M.D. [id number] Performed By: #### 2 97807 #### [facility],[address] [place] [address] HEPATITIS C AB IA W/CONFIRM [CCL]on 03-16-2021 REFLEX HCQPCR? NO Normal [facility] Comment on above: Performed By: #### 2 98139 #### [facility],[address] [place] [address] Hepatitis C Ab IA Negative Normal NEGAT [facility] Comment on above: Result Comment: [place] [address] [place] [id number] Erickson Gomez III, M.D. [id number] Performed By: #### 2 18948 #### [facility],[address] [place] [address] Hep C Ab IA w/Confon 021 Hepatitis C Ab IA NEGAT Normal Negative [facility] Comment on above: Performed By: #### C CP, ANAIFS, CRITH #### [facility] [address] [address] #### AHBSQ, RF, AHCV1B #### [facility] [address] [place] [phone] HepB SurfaceAb,Quanton 03-16 HepB SurfaceAb,Quant <8.00 Normal <8.00 [facility] Comment on above: Performed By: #### C CP, ANAIFS, CRITH #### [facility] [address] [place] [id number] #### AHBSQ, RF, AHCV1B #### [facility] [address] [place] [address] RHEUMATOID FACTOR [CCL]on Rheumatoid Factor 16 IU/mL High <16 [facility] Comment on above: Result Comment: [facility] [address] [id number] Erickson Gomez III, M.D. [id number] Performed By: #### 2 81581 #### [facility],[address] [place] [address] EMERGENCY REPORTon EMERGENCY REPORT [facility] EMERGENCY ROOM REPORT NAME ACCOUNT SEX AGE ADMIT DISCHARGE PT MED. RECORD# NUMBER DATE DATE TYPE BRANDON KULKARNI [id number] M 75 03/08/21 03/08/21 3 L [id number] ROOM: ER DATE OF : 1945 DICTATING PHYSICIAN: Diann Cote CHIEF COMPLAINT: Diffuse joint pain and olecranon bursitis of left elbow. HISTORY OF PRESENT ILLNESS: This is a 75-year-old male patient who typically goes to the OR. Over the course of the last 2 months he has gone to our Emergency Department twice, the OR and [place], all to be told he has had multiple different joints that are red, hot and swollen and it is gout. I told him when I saw him it was not gout and that he needed a full rheumatologic work-up and to follow up locally, but then [facility] but [facility] not done so. Now, he is coming in with right knee pain, left arm pain, and back pain. This is not gout. This is his fourth joint that has been involved. He has not seen any medical doctor for a medical evaluation. All of our laboratories here have been negative, and people have been continuing to treat him like gout, and the OR is not addressing the current issues. He now comes in with 3 new joints involved and an obvious olecranon bursitis in the left elbow. He denies any fevers, chills, headache, blurred vision, double vision, nausea, vomiting, diarrhea or urinary symptoms. PAST MEDICAL HISTORY: Coronary artery disease. PAST SURGICAL HISTORY: Total knee and cardiac catheterization with stents. MEDICATIONS: See nurse's note. FAMILY HISTORY: Noncontributory. SOCIAL HISTORY: Negative for alcohol, tobacco or illicit drug abuse. REVIEW OF SYSTEMS: As stated above. PHYSICAL EXAMINATION: VITAL SIGNS: Blood pressure is 163/66, pulse 68, respiratory rate 16, temperature 97.8, and oxygen saturation 100% on room air. GENERAL: He is awake, alert, nontoxic, and not septic. HEENT: Head is normocephalic, atraumatic. Pupils are equal and reactive to light bilaterally. Mucous membranes are moist. Trachea is midline. NECK: Neck is supple. No anterior or posterior cervical lymphadenopathy. HEART: Heart rate and rhythm are regular without murmur, gallop or rub. LUNGS: Lungs are clear to auscultation bilaterally without wheezes, rales or rhonchi. ABDOMEN: Abdomen is soft. No tenderness, guarding, Page 1 of 2 BRANDON KULKARNI Emergency Room Report BRANDON KULKARNI : 1945 rebound, or rigidity. SKIN: Skin is warm and dry without cyanosis, ecchymosis, petechiae, or purpura. EXTREMITIES: The left elbow is red, hot and swollen like an olecranon bursitis. He can move the joint, but it is painful. He also has right knee redness and swelling. Skin shows no cellulitis or skin changes. Neurovascularly intact. Good pulses and perfusion. EMERGENCY DEPARTMENT COURSE AND TREATMENT: I am going to do an infectious/inflammatory work-up on him. Dictated By: Diann Cote DO 03/08/21 15:43 JOB #: [id number] Transcribed By: gene 03/09/21 13:03 Electronically signed by: E-Sign: DIANN COTE MD 03/15/21 07:03 Page 2 of 2 BRANDON KULKARNI Emergency Room Report Normal [facility] EMERGENCY REPORT [facility] EMERGENCY ROOM REPORT NAME ACCOUNT SEX AGE ADMIT DISCHARGE PT MED. RECORD# NUMBER DATE DATE TYPE BRANDON KULKARNI [id number] M 75 03/08/21 03/08/21 3 L [id number] ROOM: ER DATE OF : 1945 DICTATING PHYSICIAN: Diann Cote ADDENDUM: The patient with multiple areas of joint redness and swelling. He has been talked to about gout for over 2 months in multiple different joints. They are red, hot, and swollen today with an olecranon bursitis. We are going to go ahead and get him a family doctor because [facility] not [facility] the [facility] that [facility]. He needs local primary care. I gave him something for pain, inflammation, and antibiotics. He is to followup with ortho and medical doctor for medical workup and olecranon bursitis per ortho. Dictated By: Diann Cote DO 03/08/21 19:22 JOB #: [id number] Transcribed By: am 03/09/21 13:42 Electronically signed by: E-Sign: DIANN COTE MD 03/15/21 07:03 Page 1 of 1 BRANDON KULKARNI Emergency Room Report Normal [facility] Rheumatoid Factoron 03-15-20 21 Rheumatoid Factor 16 IU/mL High <16 [facility] Comment on above: Performed By: #### C BERNA, PATRICE LINK #### [facility] [place] [facility] [address] [place], [place] [address] #### AHBSQ, RF, AHCV1B #### [facility] Routine Lab [address] [place], [place] [address] C-REACTIVE PROTEINon 021 CRP 8.40 mg/dl High 0.00 - 0.90 [facility] Comment on above: Performed By: #### 2 36106 #### [facility],[address] [place] [address] CBC + DIFFon 03-13-2021 Baso # 0.00 x10EE3/UL Normal 0.00 - 0.10 [facility] Comment on above: Performed By: #### 2 40072 #### [facility],[address] [place] [address] Basophils/100 WBC (Bld) 0.2 % Normal 0.0 - 2.[address] [facility] Comment on above: Performed By: #### 2 77068 #### [facility],[address] [place] [address] CBC + DIFF Normal [facility] Comment on above: Result Comment: CBC- COMPLETE BLOOD COUNT Performed By: #### 2 15536 #### [facility],[address] [place] [address] EO # 0.00 x10EE3/UL Normal 0.00 - 0.50 [facility] Comment on above: Performed By: #### 2 15128 #### [facility],[address] [place] [address] Eosinophils/100 WBC (Bld) 0.1 % Normal 0.0 - 7.0 [facility] Comment on above: Performed By: #### 2 14828 #### [facility],[address] [place] [address] Erythrocyte distribution width (RBC) [Ratio] 16.1 % High 12.0 - 15.6 [facility] Comment on above: Performed By: #### 2 67250 #### [facility],[address] [place] [address] Hematocrit (Bld) [Volume fraction] 36.1 % Low 40.0 - 52.0 [facility] Comment on above: Performed By: #### 2 25115 #### [facility],[address] [place] [address] Hemoglobin (Bld) [Mass/Vol] 11.9 g/dL Low 13.0 - 17.5 [facility] Comment on above: Performed By: #### 2 68869 #### [facility],[address] [place] [address] Lymph # 0.60 x10EE3/UL Low 0.80 - 2.80 [facility] Comment on above: Performed By: #### 2 43216 #### [facility],[address] [place], [place] [phone] Lymphocytes/100 WBC (Bld) 4.9 % Low 20.0 - 45.0 [facility] Comment on above: Performed By: #### 2 99720 #### [facility],[address] [place], [place] [phone] MANUAL DIFF N/A Normal [facility] Comment on above: Performed By: #### 2 61475 #### [facility] [facility],[address] [place], [place] [id number] MCH (RBC) [Entitic mass] 28 pg Normal 27 - 33 [facility] Comment on above: Performed By: #### 2 01992 #### [place] [id number] MCHC 33 X10 3 Normal 32 - 36 [facility] Comment on above: Performed By: #### 2 59452 #### [facility],[address] [place], [place] [phone] MCV (RBC) [Entitic vol] 84 fL Normal 81 - 98 [facility] Comment on above: Performed By: #### 2 69114 #### [facility],[address] [place] [address] [place] # 1.00 x10EE3/UL Normal 0.20 - 1.00 [facility] Comment on above: Performed By: #### 2 11776 #### [facility],[address] [place] [address] MONOS % 7.4 % Normal 0.0 - 10.0 [facility] Comment on above: Performed By: #### 2 46327 #### [facility],[address] [place] [address] Morphology Augustine (Bld) [Interp] N/A Normal [facility] Comment on above: Result Comment: {CD] Performed By: #### 2 35970 #### [facility],[address] [place] [address] Neut # 11.30 x10EE3/UL High 1.50 - 7.10 [facility] Comment on above: Performed By: #### 2 36729 #### [facility],[address] [place] [address] Neutrophils/100 WBC (Bld) 87.4 % High 46.0 - 76.0 [facility] Comment on above: Performed By: #### 2 56558 #### [facility],[address] [place] [address] PLATELET 251 x10EE3/UL Normal 150 - 450 [facility] Comment on above: Performed By: #### 2 28602 #### [facility],[address] [place] [address] Platelet mean volume (Bld) [Entitic vol] 9.5 fL Normal 6.4 - 10.5 [facility] Comment on above: Result Comment: AUTO MATED DIFFERENTIAL Performed By: #### 2 88323 #### [facility],[address] [place] [address] RBC 4.30 x 10EE6/UL Low 4.50 - 6.00 [facility] Comment on above: Performed By: #### 2 50028 #### [facility],[address] [place] [address] WBC 13.0 x 10EE3/UL High 4.5 - 10.8 [facility] Comment on above: Performed By: #### 2 54796 #### [facility],[address] [place] [address]49 CMP with eGFRon 03-13-2021 AGE 75 years Normal [facility] Comment on above: Performed By: #### 2 74480 ####[facility],[address] [place] [address]37 Albumin [Mass/Vol] 3.3 g/dL Low 3.4 - 5.0 [facility] Comment on above: Performed By: #### 2 38261 ####[facility],[address] [place] [address]697 Albumin/Globulin [Mass ratio] 0.7 {ratio} Low 0.9 - 1.6 [facility] Comment on above: Performed By: #### 2 08634 ####[facility],[address] [place] [address] ALK PHOS 142 U/L High 46 - 116 [facility] Comment on above: Performed By: #### 2 38826 ####[facility],[address] [place] [address]375 ALT [Catalytic activity/Vol] 35 U/L Normal 16 - 63 [facility] Comment on above: Performed By: #### 2 92519 ####[facility],[address] [place] [address]652 Anion gap [Moles/Vol] 18 mmol/L Normal 10 - 20 [facility] Comment on above: Performed By: #### 2 76953 ####[facility],[address] [place] [address] 32776 AST [Catalytic activity/Vol] 24 U/L Normal 15 - 37 [facility] Comment on above: Performed By: #### 2 78166 ####[facility],[address] [place] [address] 15293 B/C RATIO 17 ratio Normal 0 - 30 [facility] Comment on above: Performed By: #### 2 36232 ####[facility],[address] [place] [address]381 Bilirubin [Mass/Vol] 1.0 mg/dL Normal 0.2 - 1.0 [facility] Comment on above: Performed By: #### 2 96428 ####[facility],[address] [place] [address]04 Calcium [Mass/Vol] 8.9 mg/dL Normal 8.5 - 10.1 [facility] Comment on above: Performed By: #### 2 45765 ####[facility],[address] [place] [address]24 Chloride [Moles/Vol] 99 mmol/L Normal 98 - 107 [facility] Comment on above: Performed By: #### 2 66963 ####[facility],[address] [place] [address]2212 CMP with eGFR Normal [facility] Comment on above: Result Comment: COMP REHENSIVE METABOLIC PANEL Performed By: #### 2 44334 ####[facility],[address] [place] [address] 35789 CO2 [Moles/Vol] 25.6 mmol/L Normal 21.0 - 32.0 [facility] Comment on above: Performed By: #### 2 67516 ####[facility],[address] [place] [address]00 Creatinine [Mass/Vol] 1.02 mg/dL Normal 0.70 - 1.30 [facility] Comment on above: Performed By: #### 2 97367 ####[facility],[address] [place] [address] 87998 GFR/1.73 sq M.predicted among non-blacks MDRD (S/P/Bld) [Vol rate/Area] mL/min/{1.73_m2} Normal 60 - 999 [facility] Comment on above: Performed By: #### 2 05735 ####[facility],[address] [place] [address] Result Comment: ACCO RDING TO THE NATIONAL KIDNEY DISEASE EDUCATION PROGRAM(NKDE), A NORMAL eGFR IS A VALUE GREATER THAN OR EQUAL TO 60 ML/MIN/1.73 SQ METERS. CHRONIC KIDNEY DISEASE: <60mL/MIN/1.73 SQ METERS KIDNEY FAILURE: <15mL/MIN/1.73 SQ METERS THIS TEST SHOULD ONLY BE USED FOR PATIENTS 18 YEARS OF AGE AND OLDER. Globulin (S) [Mass/Vol] 4.5 g/dL High 1.5 - 3.[address] [facility] Comment on above: Performed By: #### 2 19620 ####[address] [address] Glucose [Mass/Vol] 137 mg/dL High 74 - 106 [facility] Comment on above: Performed By: #### 2 13756 ####[address] [address] Potassium [Moles/Vol] 3.4 mmol/L Low 3.5 - 5.1 [facility] Comment on above: Performed By: #### 2 81464 ####[address] [address] Protein [Mass/Vol] 7.8 g/dL Normal 6.4 - 8.2 [facility] Comment on above: Performed By: #### 2 85405 ####[address] [address] Sodium [Moles/Vol] 139 mmol/L Normal 136 - 145 [facility] Comment on above: Performed By: #### 2 75366 ####[facility],[address] [place] [address]55 Urea nitrogen [Mass/Vol] 17 mg/dL Normal 7 - 18 [facility] Comment on above: Performed By: #### 2 08778 ####[facility],[address] [place], [place] [phone] URIC ACIDon 03-13-2021 Urate [Mass/Vol] 5.5 mg/dL Normal 3.5 - 7.2 [facility] Comment on above: Performed By: #### 2 41740 #### [facility],[address] [place], [place] [phone] URINALYSISon 03-13-2021 Bilirubin Ql (U) Negative Normal NORMAL: NEGATIVE [facility] Comment on above: Performed By: #### 2 21303 #### [facility],[address] [place], [place] [phone] Clarity (U) clear Normal NORMAL: CLEAR [facility] Comment on above: Performed By: #### 2 32491 #### [facility],[address] [place] [address] 90616 Color (U) yellow Normal NORMAL: YELLOW [facility] Comment on above: Performed By: #### 2 89318 #### [facility],[address] [place] [address] 71412 Glucose Ql (U) NORM Normal NORMAL: NORMAL [facility] Comment on above: Performed By: #### 2 51385 #### [facility],[address] [place] [address] 92175 Hemoglobin Ql (U) Negative Normal NORMAL: NEGATIVE [facility] Comment on above: Performed By: #### 2 98988 #### [facility],[address] [place] [address] 69165 Ketone Negative Normal NORMAL: NEGATIVE [facility] Comment on above: Performed By: #### 2 75873 #### [facility],[address] [place] [address] 63543 Leukocytes Negative Normal NORMAL: NEGATIVE [facility] Comment on above: Performed By: #### 2 00381 #### [facility],[address] [place], [place] [phone] Nitrite Ql (U) Negative Normal NORMAL: NEGATIVE [facility] Comment on above: Performed By: #### 2 68932 #### [facility],[address] [place] [address] pH (U) 6.5 [pH] Normal NORMAL: 5.0-8.0 [facility] Comment on above: Performed By: #### 2 86664 #### [facility],[address] [place] [address] Protein Ql (U) Negative Normal NORMAL: NEGATIVE [facility] Comment on above: Performed By: #### 2 03667 #### [facility],[address] [place] [address] Sp Henderson 1.010 Normal NORMAL: 1.010-1.030 [facility] Comment on above: Performed By: #### 2 23173 #### [facility],[address] [place] [address] Specimen Type R Normal [facility] Comment on above: Performed By: #### 2 64006 #### [facility],[address] [place] [address] Urinalysis dipstick W Reflex Microscopic panel (U) NOT INDICATED Normal [facility] Comment on above: Performed By: #### 2 99793 #### [facility],[address] [place] [address] Urobilinog NORM Normal NORMAL: NORMAL [facility] Comment on above: Performed By: #### 2 12951 #### [facility],[address] [place], [place] [phone] CULTURE BLOODon 03-08-2021 Microscopic examination of blood, culture CULTURE BLOOD CULTURE BLOOD SET: 1 of 2 24HOUR REPORT NEGATIVE 48HOUR REPORT NEGATIVE 72HOUR REPORT NEGATIVE M I C R O B I O L O G Y R E P O R T FINAL Antimicrobial Susceptibility and Organism Identification Report Specimen Number : [id number] Requested : 03/08/21 Specimen Source : BLOOD Collected : 03/08/21 15:45 [facility] : EMERGENCY ROOM Received : 03/08/21 15:45 Requesting Physician : ROCAEL TIDWELL Patient/Specimen Tests and Comments Specimen Comments FINAL REPORT: NO GROWTH AT 5 DAYS Tech : ___ Source : BLOOD ID # : [id number] FINAL Report Date : / / : Collected : 03/08/21 15:45 03/14/21.704.BKO. 03/14/21.BKO.COMPL ETE 1 of 2 NEGATIVE NEGATIVE NEGATIVE Normal [facility] Comment on above: Performed By: #### 2 32496 ####[facility],[address] [place] [address] Microscopic examination of blood, culture CULTURE BLOOD CULTURE BLOOD SET: 2 of 2 24HOUR REPORT NEGATIVE 48HOUR REPORT NEGATIVE 72HOUR REPORT NEGATIVE M I C R O B I O L O G Y R E P O R T FINAL Antimicrobial Susceptibility and Organism Identification Report Specimen Number : [id number] Requested : 03/08/21 Specimen Source : BLOOD Collected : 03/08/21 15:30 [facility] : EMERGENCY ROOM Received : 03/08/21 15:30 Requesting Physician : ROCAEL TIDWELL Patient/Specimen Tests and Comments Specimen Comments FINAL REPORT: NO GROWTH AT 5 DAYS Tech : ___ Source : BLOOD ID # : [id number] FINAL Report Date : / / : Collected : 03/08/21 15:30 03/14/21.704.BKO. 03/14/21.BKO.COMPL ETE 2 of 2 NEGATIVE NEGATIVE NEGATIVE Normal [facility] Comment on above: Performed By: #### 2 56288 ####[facility],[address] [place] [address]045 LIPID PROFILEon 01-26-2021 Cholesterol [Mass/Vol] 108 mg/dL Normal 0 - 240 [facility] Comment on above: Performed By: #### 2 81366 ####[facility],[address] [place] [address] 13560 Cholesterol in HDL [Mass/Vol] 54 mg/dL Normal 40 - 60 [facility] Comment on above: Performed By: #### 2 28361 ####[facility],[address] [place] [address] 45699 Cholesterol in LDL [Mass/Vol] 38 mg/dL Normal 0 - 129 [facility] Comment on above: Performed By: #### 2 75159 ####[facility],[address] [place] [address] 12415 Cholesterol.total/Cyndee sterol in HDL [Mass ratio] 2.0 {ratio} Normal 0.0 - 5.0 [facility] Comment on above: Performed By: #### 2 57187 ####[facility],[address] [place] [address] 02465 Lipid 1996 panel Normal [facility] Comment on above: Result Comment: LIPI D PROFILE Performed By: #### 2 51317 ####[facility],[address] [place] [address] 03081 Triglyceride [Mass/Vol] 80 mg/dL Normal 0 - 150 [facility] Comment on above: Performed By: #### 2 61649 ####[facility],[address] [place] [address]78 XR CHEST 2 VIEWSon XR CHEST 2 VIEWS ORIGINAL EXAMINATION: TWO XRAY VIEWS OF THE CHEST 12/16/2020 5:14 am COMPARISON: None. HISTORY: ORDERING SYSTEM PROVIDED HISTORY: Reason for Exam: Evaluate for pneumothorax/lead position post pacer/ICD insertion FINDINGS: There is been placement of a left subclavian approach cardiac pacemaker with leads terminating at the expected regions of the right atrium and right ventricle. There is no appreciable pneumothorax. The cardiac and mediastinal contours are within normal limits of size. Atherosclerosis present of the aortic knob. There is no appreciable pneumothorax, pleural effusion, or vascular congestion. No focal consolidations. Mild degenerative changes are present of the spine. IMPRESSION: 1. Placement of cardiac pacemaker with leads terminating at the expected regions of the right atrium and right ventricle. No appreciable pneumothorax. Interpreted by: Sam Hebert Preliminary Report By: Sam Hebert Electronically signed By Sam Hebert Dictated Date: 12/16/2020 12:01:12 PM Prelim Date: 12/16/2020 12:02:57 PM Sign Date: 12/16/2020 12:02:57 PM Ordering Provider: YISSEL Rey [facility] ([place]) .Auto Diffon 12-15-2020 Basophil, Absolute 0.10 10 3/mcL Normal 0.00-0.27 [facility] ([place]) Comment on above: Performed By: #### C BC, ADIFF, ANEU, BMP, GFR, ABOGEL, ABSGEL #### [address] [address] Basophils/100 WBC (Bld) 0.6 % Normal 0.0-2.5 [facility] ([place]) Comment on above: Performed By: #### C BC, ADIFF, ANEU, BMP, GFR, ABOGEL, ABSGEL #### [address] [address] Eosinophil, Absolute 0.10 10 3/mcL Normal 0.00-0.65 [facility] ([place]) Comment on above: Performed By: #### C BC, ADIFF, ANEU, BMP, GFR, ABOGEL, ABSGEL #### [address] [address] Eosinophils/100 WBC (Bld) 0.6 % Normal 0.0-6.0 [facility] ([place]) Comment on above: Performed By: #### C BC, ADIFF, ANEU, BMP, GFR, ABOGEL, ABSGEL #### [address] [address] Lymphocyte, Absolute 1.30 10 3/mcL Normal 0.90-4.32 [facility] ([place]) Comment on above: Performed By: #### C BC, ADIFF, ANEU, BMP, GFR, ABOGEL, ABSGEL #### [address] [address] Lymphocytes/100 WBC (Bld) 14.4 % Low 20.0-40.0 [facility] ([place]) Comment on above: Performed By: #### C BC, ADIFF, ANEU, BMP, GFR, ABOGEL, ABSGEL #### [address] [address] Monocyte, Absolute 1.10 10 3/mcL Normal 0.09-1.40 [facility] ([place] Comment on above: Performed By: #### C BC, ADIFF, ANEU, BMP, GFR, ABOGEL, ABSGEL #### [address] [address] Monocytes/100 WBC (Bld) 12.0 % Normal 2.0-13.0 [facility] ([place]) Comment on above: Performed By: #### C BC, ADIFF, ANEU, BMP, GFR, ABOGEL, ABSGEL #### [address] [address] Neutrophils/100 WBC (Bld) 72.4 % Normal 50.0-75.0 [facility] ([place]) Comment on above: Performed By: #### C BC, ADIFF, ANEU, BMP, GFR, ABOGEL, ABSGEL #### [address] [address] .GFRon 12-15-2020 GFR >60 Normal [facility] ([place]) Comment on above: Result Comment: GFR Population mean for , Non- Americans Ages 20-29 = 116 mL/min/1.73 sq.m. Ages 30-39 = 107 mL/min/1.73 sq.m. Ages 40-49 = 99 mL/min/1.73 sq.m. Ages 50-59 = 93 mL/min/1.73 sq.m. Ages 60-69 = 85 mL/min/1.73 sq.m. Ages 70+ = 75 mL/min/1.73 sq.m. Chronic Kidney Disease: Less than 60 mL/min/1.73 square meters End Stage Renal Disease: Less than 15 mL/min/1.73 square meters Performed By: #### C BC, ADIFF, ANEU, CMP, GFR #### [address] [address] GFR Non- >60 Normal [facility] ([place]) Comment on above: Result Comment: GFR Population mean for , Non- Americans Ages 20-29 = 116 mL/min/1.73 sq.m. Ages 30-39 = 107 mL/min/1.73 sq.m. Ages 40-49 = 99 mL/min/1.73 sq.m. Ages 50-59 = 93 mL/min/1.73 sq.m. Ages 60-69 = 85 mL/min/1.73 sq.m. Ages 70+ = 75 mL/min/1.73 sq.m. Chronic Kidney Disease: Less than 60 mL/min/1.73 square meters End Stage Renal Disease: Less than 15 mL/min/1.73 square meters Performed By: #### C BC, ADIFF, ANEU, CMP, GFR #### [address] [address] .NEUABSon 12-15-2020 Neutrophil, Absolute 6.60 10 3/mcL Normal 2.25-8.10 [facility] ([place]) Comment on above: Performed By: #### C BC, ADIFF, ANEU, CMP, GFR #### [address] [address] ABO/Rh (Gel)on 12-15-2020 ABO/Rh Interp Positive Invalid Interpretation Code [facility] ([place]) Comment on above: Performed By: #### C BC, ADIFF, ANEU, CMP, GFR #### [place] [id number] ABS (Gel)on 12-15-2020 ABSC Interp (Gel) Negative Normal [facility] ([place]) Comment on above: Performed By: #### C BC, ADIFF, ANEU, CMP, GFR #### [address] [address] BMPon 12-15-2020 BUN/Creatinine Ratio 9.4 ratio Low 10.0-22.0 [facility] ([place]) Comment on above: Performed By: #### C BC, ADIFF, ANEU, CMP, GFR #### [place] [id number] Calcium [Mass/Vol] 9.7 mg/dL Normal 8.4-10.1 [facility] ([place]) Comment on above: Result Comment: No te - New Reference Range in effect 19 Performed By: #### C BC, ADIFF, ANEU, CMP, GFR #### [address] [address] Chloride [Moles/Vol] 103 mmol/L Normal 98-110 [facility] ([place]) Comment on above: Performed By: #### C BC, ADIFF, ANEU, CMP, GFR #### [address] [address] CO2 [Moles/Vol] 24 mmol/L Normal 22-32 [facility] ([place]) Comment on above: Performed By: #### C BC, ADIFF, ANEU, CMP, GFR #### [address] [address] Creatinine [Mass/Vol] 0.96 mg/dL Normal 0.60-1.40 [facility] ([place]) Comment on above: Performed By: #### C BC, ADIFF, ANEU, CMP, GFR #### [address] [address] Electrolyte Balance 11.0 mEq/L Normal 4.0-15.0 [facility] ([place]) Comment on above: Performed By: #### C BC, ADIFF, ANEU, CMP, GFR #### [address] [address] Glucose [Mass/Vol] 116 mg/dL High 82-115 [facility] ([place]) Comment on above: Performed By: #### C BC, ADIFF, ANEU, CMP, GFR #### [address] [address] Potassium [Moles/Vol] 3.4 mmol/L Low 3.5-5.0 [facility] ([place]) Comment on above: Performed By: #### C BC, ADIFF, ANEU, CMP, GFR #### [address] [address] Sodium [Moles/Vol] 138 mmol/L Normal 136-145 [facility] ([place]) Comment on above: Performed By: #### C BC, ADIFF, ANEU, CMP, GFR #### [address] [address] Urea nitrogen [Mass/Vol] 9.0 mg/dL Normal 8.0-22.0 [facility] ([place]) Comment on above: Performed By: #### C BC, ADIFF, ANEU, CMP, GFR #### [address] [address] CBCon 12-15-2020 Erythrocyte distribution width (RBC) [Ratio] 16.0 % High 11.5-15.5 [facility] ([place]) Comment on above: Performed By: #### C BC, ADIFF, ANEU, BMP, GFR, ABOGEL, ABSGEL #### [place] [address] Hematocrit (Bld) [Volume fraction] 40.2 % Normal 40.0-52.0 [facility] ([place] Comment on above: Performed By: #### C BC, ADIFF, ANEU, BMP, GFR, ABOGEL, ABSGEL #### [place] [address] Hgb 13.6 G/dL Normal 13.0-17.5 [facility] ([place]) Comment on above: Performed By: #### C BC, ADIFF, ANEU, BMP, GFR, ABOGEL, ABSGEL #### [place] [address] MCH (RBC) [Entitic mass] 29.2 pg Normal 27.0-33.0 [facility] ([place] Comment on above: Performed By: #### C BC, ADIFF, ANEU, BMP, GFR, ABOGEL, ABSGEL #### [place] [address] MCHC 34.0 G/dL Normal 32.0-36.0 [facility] ([place]) Comment on above: Performed By: #### C BC, ADIFF, ANEU, BMP, GFR, ABOGEL, ABSGEL #### [place] [address] MCV (RBC) [Entitic vol] 85.9 fL Normal 81.0-100.0 [facility] ([place]) Comment on above: Performed By: #### C BC, ADIFF, ANEU, BMP, GFR, ABOGEL, ABSGEL #### [place] [address] Platelet 156 10 3/mcL Normal 150-450 [facility] ([place]) Comment on above: Performed By: #### C BC, ADIFF, ANEU, BMP, GFR, ABOGEL, ABSGEL #### [facility] [address] [place], [place] [address] Platelet mean volume (Bld) [Entitic vol] 10.3 fL Normal 6.4-10.5 [facility] ([place]) Comment on above: Performed By: #### C BC, ADIFF, ANEU, BMP, GFR, ABOGEL, ABSGEL #### [address] [address] RBC 4.68 10 6/mcL Normal 4.50-6.00 [facility] ([place]) Comment on above: Performed By: #### C BC, ADIFF, ANEU, BMP, GFR, ABOGEL, ABSGEL #### [address] [address] WBC 9.10 10 3/mcL Normal 4.50-10.80 [facility] ([place]) Comment on above: Performed By: #### C BC, ADIFF, ANEU, BMP, GFR, ABOGEL, ABSGEL #### [address] [address] Basic Metabolic Panelon 11-03 Calcium [Mass/Vol] 9.4 mg/dL Normal 8.4-10.4 [facility] Comment on above: Performed By: #### C RP2, ESR, BMP3, URIC3, HEMOG #### [address] [address] Anion gap [Moles/Vol] 10 mmol/L Normal 3-13 [facility] Comment on above: Performed By: #### C RP2, ESR, BMP3, URIC3, HEMOG #### [address] [address] CO2 [Moles/Vol] 23 mmol/L Normal 22-30 [facility] Comment on above: Performed By: #### C RP2, ESR, BMP3, URIC3, HEMOG #### [address] [address] Glucose [Mass/Vol] 104 mg/dL High 70-100 [facility] Comment on above: Performed By: #### C RP2, ESR, BMP3, URIC3, HEMOG #### [address] Urea nitrogen [Mass/Vol] 7 mg/dL Normal 7-20 [facility] Comment on above: Performed By: #### C RP2, ESR, BMP3, URIC3, HEMOG #### [facility] [address] [place], [place] Creatinine [Mass/Vol] 0.75 mg/dL Normal 0.52-1.25 [facility] Comment on above: Performed By: #### C RP2, ESR, BMP3, URIC3, HEMOG #### [facility] [address] [place], [place] eGFR OTHER > 90.0 Normal >60 [facility] Comment on above: Result Comment: KDIG O guidelines provide the following GFR categories: Stage GFR(ml/min/1.73 m2) Terms G1 >=90 Normal or high G2 60-89 Mildly decreased* G3a 45-59 Mildly to moderately decreased G3b 30-44 Moderately to severely decreased G4 15-29 Severely decreased G5 <15 Kidney failure *Relative to young adult level. In the absence of evidence of kidney damage, neither GFR category G1 nor G2 fulfill the criteria for CKD. The CKD-EPI equation is validated in individuals 18 years of age and older. Currently the best equation for estimating glomerular filtration rate (GFR) from serum creatinine in children is the Bedside Peraza equation. It is less accurate in patients with extremes of muscle mass, restriction of dietary protein, ingestion of creatine, extra-renal metabolism of creatinine, or treatment with medications that affect renal tubular creatinine secretion. Performed By: #### C RP2, ESR, BMP3, URIC3, HEMOG #### [facility] [address], [place] GFR/1.73 sq M.predicted among blacks MDRD (S/P/Bld) [Vol rate/Area] mL/min/{1.73_m2} Normal >60 [facility] Comment on above: Performed By: #### C RP2, ESR, BMP3, URIC3, HEMOG #### [facility] [address], [place] Chloride [Moles/Vol] 102 mmol/L Normal 98-107 [facility] Comment on above: Performed By: #### C RP2, ESR, BMP3, URIC3, HEMOG #### [facility] [address], [place] Potassium [Moles/Vol] 3.6 mmol/L Normal 3.5-5.1 [facility] Comment on above: Performed By: #### C RP2, ESR, BMP3, URIC3, HEMOG #### [facility] [address], [place] Sodium [Moles/Vol] 136 mmol/L Normal 135-145 [facility] Comment on above: Performed By: #### C RP2, ESR, BMP3, URIC3, HEMOG #### [facility] [address], [place] Basic Metabolic PanelOrdered By: Dania Brown on 11-27-2020 Anion gap [Moles/Vol] 10 mmol/L 3 - 13 mmol/L [facility] Work Phone: Calcium [Mass/Vol] 9.4 mg/dL 8.4 - 10. 4 mg/dL [facility] Work Phone: Chloride [Moles/Vol] 102 mmol/L 98 - 10 7 mmol/L [facility] Work Phone: CO2 [Moles/Vol] 23 mmol/L 22 - 30 mmol/L [facility] Work Phone: Creatinine [Mass/Vol] 0.75 mg/dL 0.52 - 1.25 mg/dL [facility] Work Phone: EGFR IF NonAfrican Nauruan >90.0 >60 mL/min [facility] Work Phone: Comment on above: KDIGO guidelines pro vide the following GFR categories: Stage GFR(ml/min/1.73 m2) Terms G1 >=90 Normal or high G2 60-89 Mildly decreased* G3a 45-59 Mildly to moderately decreased G3b 30-44 Moderately to severely decreased G4 15-29 Severely decreased G5 <15 Kidney failure *Relative to young adult level. In the absence of evidence of kidney damage, neither GFR category G1 nor G2 fulfill the criteria for CKD. The CKD-EPI equation is validated in individuals 18 years of age and older. Currently the best equation for estimating glomerular filtration rate (GFR) from serum creatinine in children is the Bedside Peraza equation. It is less accurate in patients with extremes of muscle mass, restriction of dietary protein, ingestion of creatine, extra-renal metabolism of creatinine, or treatment with medications that affect renal tubular creatinine secretion. GFR/1.73 sq M.predicted among blacks MDRD (S/P/Bld) [Vol rate/Area] mL/min/{1.73_m2} >60 mL/min [facility] Work Phone: Glucose [Mass/Vol] 104 mg/dL High 70 - 100 mg/dL [facility] Work Phone: Potassium [Moles/Vol] 3.6 mmol/L 3.5 - 5.1 mmol/L [facility] Work Phone: Sodium [Moles/Vol] 136 mmol/L 135 - 145 mmol/L [facility] Work Phone: Urea nitrogen (BldV) [Mass/Vol] 7 mg/dL 7 - 20 mg/dL [facility] Work Phone: C-Reactive Proteinon 021 CRP [Mass/Vol] 15.4 mg/L High 0.0-6.[address] Comment on above: Result Comment: . Performed By: #### C RP2, ESR, BMP3, URIC3, HEMOG #### [employer] [address] [place] [id number] C-Reactive ProteinOrdered By : Dania Brown on 11-27-2020 CRP [Mass/Vol] 15.4 mg/L High 0.0 - 6.0 mg/L [facility] Work Phone: Comment on above: . CR Elbow 3+ Views Bilateralo n 11-27-2020 CR Elbow 3+ Views Bilateral Patient Name: BRANDON KULKARNI Diagnostic Radiology ACCESSION EXAM DATE/TIME PROCEDURE ORDERING PROVIDER [id number] 11/27/2020 04:25 EDT CR Elbow 3+ Views [id number] -BROSCHINSKY, Bilateral KORTNIE CPT code 82088 Reason For Exam (CR Elbow 3+ Views Bilateral) swelling + ttp Report CLINICAL INDICATION: Swelling and pain and bilateral elbow. TECHNIQUE: Three views of the right and left elbow COMPARISON: None FINDINGS: Right elbow: There may be a small joint effusion present. There is diffuse soft tissue swelling and irregularity overlying the olecranon process where there are multiple calcific densities present. Tiny olecranon spur. Well-corticated tiny ossicle adjacent to the lateral condyle.No definite acute fracture or dislocation. Left elbow: No joint effusion. Prominent diffuse soft tissue swelling overlying the olecranon process with faint calcific densities likely associated with the insertion of the triceps tendon. Tiny olecranon spur. No acute fracture or dislocation. 13 mm well-corticated ossicle adjacent to the medial epicondyle. IMPRESSION: 1. Findings likely reflect olecranon bursitis involving both elbows. Superimposed infection is difficult to exclude. 2. Questionable small joint effusion in the right elbow. In the setting of trauma findings would raise the possibility of a radiographically occult radial head fracture. Further evaluation with cross-sectional imaging or short-term follow-up radiographs with embolization of the right elbow is recommended if this is a clinical concern. 3. No acute fracture or dislocation in the left elbow. Report Dictated on Final Dictated: 11/27/2020 4:43 am Dictating Physician: MD WILBURN VLADIMIR Signed Date and Time: 11/27/2020 4:47 am Signed by: MD WILBURN VLADIMIR Transcribed Date and Time: 11/27/2020 4:43 Normal [facility] CR Hand Complete 3+ Views [facility] 11-27-2020 CR Hand Complete 3+ Views Right Patient Name: BRANDON KULKARNI Diagnostic Radiology ACCESSION EXAM DATE/TIME PROCEDURE ORDERING PROVIDER [id number] 11/27/2020 04:25 EDT CR Hand Complete 3+ [id number] -PRISCILAKY, Caleb Right CHYNA CPT code 58290 Reason For Exam (CR Hand Complete 3+ Views Right) swelling + TTP Report CLINICAL INDICATION: Pain and swelling, right hand. TECHNIQUE: Three views of the right hand COMPARISON: None FINDINGS/IMPRESSION: Somewhat limited by positioning. No acute fracture or dislocation. 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 There is soft tissue swelling most pronounced dorsally at the level of the MCP joints. There are vascular calcifications. There are periarticular erosive changes/areas of osseous destruction involving the fifth digit most pronounced within the head of the proximal phalanx, and head of the middle phalanx. There is diffuse soft tissue swelling overlying the fifth digit. These findings could be seen in the setting of osteomyelitis versus inflammatory arthropathy. Clinical correlation and if clinically needed further evaluation with MRI is recommended. Report Dictated on Final Dictated: 11/27/2020 4:47 am Dictating Physician: MD WILBURN VLADIMIR Signed Date and Time: 11/27/2020 4:51 am Signed by: MD WILBURN VLADIMIR Transcribed Date and Time: 11/27/2020 4:47 Normal [facility] Hemogramon 11-27-2020 Erythrocyte distribution width (RBC) [Ratio] 15.4 % High 11.5-14.5 [facility] Comment on above: Performed By: #### C RP2, ESR, BMP3, URIC3, HEMOG #### [address] Hematocrit (Bld) [Volume fraction] 41.5 % Normal 40.0-52.0 [facility] Comment on above: Performed By: #### C RP2, ESR, BMP3, URIC3, HEMOG #### [address] Hemoglobin (Bld) [Mass/Vol] 13.7 g/dL Normal 13.0-18.0 [facility] Comment on above: Performed By: #### C RP2, ESR, BMP3, URIC3, HEMOG #### [address] MCH (RBC) [Entitic mass] 28.2 pg Normal 26.0-34.0 [facility] Comment on above: Performed By: #### C RP2, ESR, BMP3, URIC3, HEMOG #### [address] MCHC 33.1 % Normal 32.0-36.0 [facility] Comment on above: Performed By: #### C RP2, ESR, BMP3, URIC3, HEMOG #### [facility] [address], [place] MCV (RBC) [Entitic vol] 85.1 fL Normal 80.0-98.0 [facility] Comment on above: Performed By: #### C RP2, ESR, BMP3, URIC3, HEMOG #### [place] [address] [address], [place] Platelet mean volume (Bld) [Entitic vol] 9.1 fL Normal 7.4-10.4 [facility] Comment on above: Performed By: #### C RP2, ESR, BMP3, URIC3, HEMOG #### [place] [address] [address], [place] Platelets (Bld) [#/Vol] 199 10*3/uL Normal 140-440 [facility] Comment on above: Performed By: #### C RP2, ESR, BMP3, URIC3, HEMOG #### [place] [address] [address] [place], [place] RBC (Bld) [#/Vol] 4.87 10*6/uL Normal 4.40-5.90 [facility] Comment on above: Performed By: #### C RP2, ESR, BMP3, URIC3, HEMOG #### [place] [address] [address], [place] WBC (Bld) [#/Vol] 8.6 10*3/uL Normal 3.6-10.7 [facility] Comment on above: Performed By: #### C RP2, ESR, BMP3, URIC3, HEMOG #### [place] [address] [address] [place], [place] Hemogram (CBC)Ordered By: David Brown on 11-27-2020 Hematocrit (Bld) [Volume fraction] 41.5 % 40.0 - 52.0 % [facility] Work Phone: Hemoglobin.gastrointest inal spec 1 Ql (Stl) 13.7 g/dL 13.0 - 18.0 g/dL [facility] Work Phone: 1 Interpretation and review of laboratory results Abnormal [facility] Work Phone: MCH (RBC) [Entitic mass] 28.2 pg 26.0 - 34.0 pg [facility] Work Phone: MCHC (RBC) [Mass/Vol] 33.1 % 32.0 - 36.0 % [facility] Work Phone: MCV (RBC) [Entitic vol] 85.1 fL 80.0 - 98.0 fL [facility] Work Phone: Platelet distribution width (Bld) [Ratio] 15.4 % High 11.5 - 14.5 % [facility] Work Phone: Platelet mean volume (Bld) [Entitic vol] 9.1 fL 7.4 - 10.4 fL [facility] Work Phone: Platelets (Bld) [#/Vol] 199 10*3/uL 140 - 440 10*3/uL [facility] Work Phone: RBC (Bld) [#/Vol] 4.87 10*6/uL 4.40 - 5.9 0 10*6/uL [facility] Work Phone: WBC (Bld) [#/Vol] 8.6 10*3/uL 3.6 - 10.7 10*3/uL [facility] Work Phone: Test Performed by [employer], [facility] [place] [address] [employer] Work Phone: [facility] Work Phone: No Panel InformationOrdered By: Dania Brown on 11-27-2020 Interpretation and review of laboratory results Abnormal [facility] Work Phone: Test Performed by [employer], [facility] [place] [address] [facility] Work Phone: [facility] Work Phone: Sed Rateon 11-27-2020 Sed Rate 34 mm/h High 0-10 [facility] Comment on above: Performed By: #### C RP2, ESR, BMP3, URIC3, HEMOG #### [address] [address] Sedimentation RateOrdered By : Dania Brown on 11-27-2020 Interpretation and review of laboratory results Abnormal [facility] Work Phone: Sed Rate 34 mm/h High 0 - 10 mm/h [facility] Work Phone: Test Performed by [facility], [address] [place] [address] [facility] Work Phone: [facility] Work Phone: Uric Acidon 11-27-2020 Urate [Mass/Vol] 6.6 mg/dL Normal 2.5-8.5 [facility] Comment on above: Performed By: #### C RP2, ESR, BMP3, URIC3, HEMOG #### [address] [address] Uric AcidOrdered By: Dania mancilla on 11-27-2020 Urate [Mass/Vol] 6.6 mg/dL 2.5 - 8.5 mg/dL [facility] Work Phone: XR Elbow Standard BilateralO rdered By: Chyna Hernandez on 11-27-2020 Patient Name: BRANDON KULKARNI Diagnostic Radiology ACCESSION EXAM DATE/TIME PROCEDURE ORDERING PROVIDER [id number] 11/27/2020 04:25 EDT CR Elbow 3+ Views [id number] -VERONICA, Bilateral CHYNA CPT code 89209 Reason For Exam (CR Elbow 3+ Views Bilateral) swelling + ttp Report CLINICAL INDICATION: Swelling and pain and bilateral elbow. TECHNIQUE: Three views of the right and left elbow COMPARISON: None FINDINGS: Right elbow: There may be a small joint effusion present. There is diffuse soft tissue swelling and irregularity overlying the olecranon process where there are multiple calcific densities present. Tiny olecranon spur. Well-corticated tiny ossicle adjacent to the lateral condyle.No definite acute fracture or dislocation. Left elbow: No joint effusion. Prominent diffuse soft tissue swelling overlying the olecranon process with faint calcific densities likely associated with the insertion of the triceps tendon. Tiny olecranon spur. No acute fracture or dislocation. 13 mm well-corticated ossicle adjacent to the medial epicondyle. IMPRESSION: 1. Findings likely reflect olecranon bursitis involving both elbows. Superimposed infection is difficult to exclude. 2. Questionable small joint effusion in the right elbow. In the setting of trauma findings would raise the possibility of a radiographically occult radial head fracture. Further evaluation with cross-sectional imaging or short-term follow-up radiographs with embolization of the right elbow is recommended if this is a clinical concern. 3. No acute fracture or dislocation in the left elbow. Report Dictated on --- Final --- Dictated: 11/27/2020 4:43 am Dictating Physician: MD WILBURN VLADIMIR Signed Date and Time: 11/27/2020 4:47 am Signed by: MD WILBURN VLADIMIR Transcribed Date and Time: 11/27/2020 4:43 [facility] Work Phone: [facility], [facility] Incoming Radiology Results From [facility] - 11/27/2020 4:48 AM EDT [facility]: [id number] ACCESSION EXAM DATE/TIME PROCEDURE ORDERING PROVIDER [id number] 11/27/2020 04:25 EDT CR Elbow 3+ Views [id number] -BROSCHINSKY, Bilateral KORTNIE CPT code 95562 Reason For Exam (CR Elbow 3+ Views Bilateral) swelling + ttp Report CLINICAL INDICATION: Swelling and pain and bilateral elbow. TECHNIQUE: Three views of the right and left elbow COMPARISON: None FINDINGS: Right elbow: There may be a small joint effusion present. There is diffuse soft tissue swelling and irregularity overlying the olecranon process where there are multiple calcific densities present. Tiny olecranon spur. Well-corticated tiny ossicle adjacent to the lateral condyle.No definite acute fracture or dislocation. Left elbow: No joint effusion. Prominent diffuse soft tissue swelling overlying the olecranon process with faint calcific densities likely associated with the insertion of the triceps tendon. Tiny olecranon spur. No acute fracture or dislocation. 13 mm well-corticated ossicle adjacent to the medial epicondyle. IMPRESSION: 1. Findings likely reflect olecranon bursitis involving both elbows. Superimposed infection is difficult to exclude. 2. Questionable small joint effusion in the right elbow. In the setting of trauma findings would raise the possibility of a radiographically occult radial head fracture. Further evaluation with cross-sectional imaging or short-term follow-up radiographs with embolization of the right elbow is recommended if this is a clinical concern. 3. No acute fracture or dislocation in the left elbow. Report Dictated on --- Final --- Dictated: 11/27/2020 4:43 am Dictating Physician: MD WILBURN VLADIMIR Signed Date and Time: 11/27/2020 4:47 am Signed by: MD WILBURN VLADIMIR Transcribed Date and Time: 11/27/2020 4:43 [facility] Work Phone: [facility] Work Phone: XR HAND RIGHT (MIN 3 VIEWS)O rdered By: Chyna Hernandez on 11-27-2020 Patient Name: BRANDON KULKARNI Diagnostic Radiology ACCESSION EXAM DATE/TIME PROCEDURE ORDERING PROVIDER [id number] 11/27/2020 04:25 EDT CR Hand Complete 3+ [id number] -Caleb HERNANDEZ Right CHYNA CPT code 10109 Reason For Exam (CR Hand Complete 3+ Views Right) swelling + TTP Report CLINICAL INDICATION: Pain and swelling, right hand. TECHNIQUE: Three views of the right hand COMPARISON: None FINDINGS/IMPRESSION: Somewhat limited by positioning. No acute fracture or dislocation. 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 There is soft tissue swelling most pronounced dorsally at the level of the MCP joints. There are vascular calcifications. There are periarticular erosive changes/areas of osseous destruction involving the fifth digit most pronounced within the head of the proximal phalanx, and head of the middle phalanx. There is diffuse soft tissue swelling overlying the fifth digit. These findings could be seen in the setting of osteomyelitis versus inflammatory arthropathy. Clinical correlation and if clinically needed further evaluation with MRI is recommended. Report Dictated on --- Final --- Dictated: 11/27/2020 4:47 am Dictating Physician: MD WILBURN VLADIMIR Signed Date and Time: 11/27/2020 4:51 am Signed by: MD WILBURN VLADIMIR Transcribed Date and Time: 11/27/2020 4:47 [facility] Work Phone: [facility] 11/27/2020 4:52 AM EDT Patient Name: BRANDON KULKARNI Diagnostic Radiology ACCESSION EXAM DATE/TIME PROCEDURE ORDERING PROVIDER [id number] 11/27/2020 04:25 EDT CR Hand Complete 3+ [id number] -BROSCHINSKY, Views Right CHYNA CPT code 17699 Reason For Exam (CR Hand Complete 3+ Views Right) swelling + TTP Report CLINICAL INDICATION: Pain and swelling, right hand. TECHNIQUE: Three views of the right hand COMPARISON: None FINDINGS/IMPRESSION: Somewhat limited by positioning. No acute fracture or dislocation. 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 There is soft tissue swelling most pronounced dorsally at the level of the MCP joints. There are vascular calcifications. There are periarticular erosive changes/areas of osseous destruction involving the fifth digit most pronounced within the head of the proximal phalanx, and head of the middle phalanx. There is diffuse soft tissue swelling overlying the fifth digit. These findings could be seen in the setting of osteomyelitis versus inflammatory arthropathy. Clinical correlation and if clinically needed further evaluation with MRI is recommended. Report Dictated on --- Final --- Dictated: 11/27/2020 4:47 am Dictating Physician: MD WILBURN VLADIMIR Signed Date and Time: 11/27/2020 4:51 am Signed by: MERUNKA, MD, PIPPA Transcribed Date and Time: 11/27/2020 4:47 [facility] Work Phone: [facility] Work Phone: BMP with eGFRon 11-26-2020 AGE 75 years Normal [facility] Comment on above: Performed By: #### 2 [id number] ####[facility],[address] [place] [address] Anion gap [Moles/Vol] 15 mmol/L Normal 10 - 20 [facility] Comment on above: Performed By: #### 2 73525 ####[facility],[address] [place] [address] BMP with eGFR Normal [facility] Comment on above: Result Comment: BASI C METABOLIC PANEL Performed By: #### 2 [id number] ####[facility],[address] [place] [address] Calcium [Mass/Vol] 9.1 mg/dL Normal 8.5 - 10.1 [facility] Comment on above: Performed By: #### 2 03059 ####[facility],[address] [place] [address] Chloride [Moles/Vol] 98 mmol/L Normal 98 - 107 [facility] Comment on above: Performed By: #### 2 16755 ####[facility],[address] [place] [address] CO2 [Moles/Vol] 25.8 mmol/L Normal 21.0 - 32.0 [facility] Comment on above: Performed By: #### 2 17793 ####[facility],[address] [place] [address] Creatinine [Mass/Vol] 1.07 mg/dL Normal 0.70 - 1.30 [facility] Comment on above: Performed By: #### 2 02762 ####[facility],[address] [place] [address] GFR/1.73 sq M.predicted among non-blacks MDRD (S/P/Bld) [Vol rate/Area] mL/min/{1.73_m2} Normal 60 - 999 [facility] Comment on above: Performed By: #### 2 94293 ####[facility],[address] [place] [address] Result Comment: ACCO RDING TO THE NATIONAL KIDNEY DISEASE EDUCATION PROGRAM(NKDE), A NORMAL eGFR IS A VALUE GREATER THAN OR EQUAL TO 60 ML/MIN/1.73 SQ METERS. CHRONIC KIDNEY DISEASE: <60mL/MIN/1.73 SQ METERS KIDNEY FAILURE: <15mL/MIN/1.73 SQ METERS THIS TEST SHOULD ONLY BE USED FOR PATIENTS 18 YEARS OF AGE AND OLDER. Glucose [Mass/Vol] 113 mg/dL High 74 - 106 [facility] Comment on above: Performed By: #### 2 [address]1175 ####[address] [address] Potassium [Moles/Vol] 3.3 mmol/L Low 3.5 - 5.1 [facility] Comment on above: Performed By: #### 2 41267 ####[facility],[address] [place] [address] Sodium [Moles/Vol] 135 mmol/L Low 136 - 145 [facility] Comment on above: Performed By: #### 2 06252 ####[facility],[address] [place] [address] Urea nitrogen [Mass/Vol] 7 mg/dL Normal 7 - 18 [facility] Comment on above: Performed By: #### 2 85369 ####[address] [address] CBC + DIFFon 11-26-2020 Baso # 0.10 x10EE3/UL Normal 0.00 - 0.10 [facility] Comment on above: Performed By: #### 2 55026 ####[address] [address] Basophils/100 WBC (Bld) 0.9 % Normal 0.0 - 2.0 [facility] Comment on above: Performed By: #### 2 [address] ####[place] [address] CBC + DIFF Normal [facility] Comment on above: Result Comment: CBC- COMPLETE BLOOD COUNT Performed By: #### 2 57127 ####[facility],[address] [place] [address] EO # 0.10 x10EE3/UL Normal 0.00 - 0.50 [facility] Comment on above: Performed By: #### 2 16937 ####[place] [address] Eosinophils/100 WBC (Bld) 1.5 % Normal 0.0 - 7.0 [facility] Comment on above: Performed By: #### 2 34422 ####[place] [address] Erythrocyte distribution width (RBC) [Ratio] 15.5 % Normal 12.0 - 15.6 [facility] Comment on above: Performed By: #### 2 91330 ####[place] [address] Hematocrit (Bld) [Volume fraction] 43.2 % Normal 40.0 - 52.0 [facility] Comment on above: Performed By: #### 2 53547 ####[place] [address] Hemoglobin (Bld) [Mass/Vol] 14.6 g/dL Normal 13.0 - 17.5 [facility] Comment on above: Performed By: #### 2 92906 ####[place] [address] Lymph # 1.40 x10EE3/UL Normal 0.80 - 2.80 [facility] Comment on above: Performed By: #### 2 06207 ####[facility],[address] [place] [address] Lymphocytes/100 WBC (Bld) 16.1 % Low 20.0 - 45.0 [facility] Comment on above: Performed By: #### 2 55027 ####[facility],[address] [place] [address] MANUAL DIFF N/A Normal [facility] Comment on above: Performed By: #### 2 [id number] ####[facility],[address] [place] [address] MCH (RBC) [Entitic mass] 29 pg Normal 27 - 33 [facility] Comment on above: Performed By: #### 2 10815 ####[facility],[address] [place] [address] MCHC 34 X10 3 Normal 32 - 36 [facility] Comment on above: Performed By: #### 2 17230 ####[facility],[address] [place] [address] MCV (RBC) [Entitic vol] 85 fL Normal 81 - [address] [facility] Comment on above: Performed By: #### 2 35515 ####[facility],[address] [place] [address] [place] # 1.00 x10EE3/UL Normal 0.20 - 1.00 [facility] Comment on above: Performed By: #### 2 28262 ####[facility],[address] [place] [address] MONOS % 11.8 % High 0.0 - 10.0 [facility] Comment on above: Performed By: #### 2 86892 ####[place] [id number] Morphology Augustine (Bld) [Interp] N/A Normal [facility] Comment on above: Result Comment: {CD] Performed By: #### 2 29850 ####[place] [address] Neut # 6.10 x10EE3/UL Normal 1.50 - 7.10 [facility] Comment on above: Performed By: #### 2 03882 ####[facility],[address] [place] [address]84 Neutrophils/100 WBC (Bld) 69.7 % Normal 46.0 - 76.0 [facility] Comment on above: Performed By: #### 2 41739 ####[facility],[address] [place] [address] PLATELET 228 x10EE3/UL Normal 150 - 450 [facility] Comment on above: Performed By: #### 2 70576 ####[facility],[address] [place] [address] Platelet mean volume (Bld) [Entitic vol] 9.1 fL Normal 6.4 - 10.5 [facility] Comment on above: Result Comment: AUTO MATED DIFFERENTIAL Performed By: #### 2 39035 ####[facility],[address] [place] [address] 20743 RBC 5.08 x 10EE6/UL Normal 4.50 - 6.00 [facility] Comment on above: Performed By: #### 2 61509 ####[facility],[address] [place], [place] [id number] WBC 8.7 x 10EE3/UL Normal 4.5 - 10.8 [facility] Comment on above: Performed By: #### 2 82765 ####[facility],[address] [place] [address] CT HAND W/O RTon 11-26-2020 CT HAND W/O RT [place] [address] Patient: BRANDON KULKARNI Phone#: : 1945 Age: 75 Gender: M Pt. Type: ER Account: [id number] Location: [id number] Ordering: DR. DIANN COTE Exam Date: 11/26/2020/14:38 Family Phys: Charge Code: [id number] Physician: [place] Order #: [id number] DLP Dose#: PROCEDURE: CT HAND RT WITHOUT CONTRAST COMPARISON: None. INDICATIONS: Edema. TECHNIQUE: Multi-planar CT images were created without intravenous contrast. All CT scans at this facility use dose modulation, iterative reconstruction, and/or weight based dosing when appropriate to reduce radiation dose to as low as reasonably achievable. IV CONTRAST: No IV contrast used,ml TOTAL DOSE: 4.8 CTDIvol(mGy) FINDINGS: BONES: Severe degenerative changes are present and most marked at the DIP joint of the 5th digit. Degenerative changes at the interphalangeal joints and at the carpals is present. SOFT TISSUES: Soft tissue calcifications are present adjacent to the DIP joint of the 5th digit. Possibility of gouty tophi is raised. Extensive subcutaneous edema over the dorsum of the hand is present. Focal abscess is not identified. EFFUSION: None visible. OTHER: Negative. CONCLUSION: 1. Degenerative changes are present at multiple joints but most marked at the DIP joint of the 2nd digit. Soft tissue calcifications are present. 2. There is extensive subcutaneous edema over the dorsum of the hand. Dictated by: Ruby Duarte MD on 11/26/2020 at 14:55 Approved by: Ruby Duarte MD on 11/26/2020 at 15:04 Normal [facility] CULTURE BLOODon 11-26-2020 Microscopic examination of blood, culture CULTURE BLOOD CULTURE BLOOD SET: 1 of 2 24HOUR REPORT NEGATIVE 48HOUR REPORT NEGATIVE 72HOUR REPORT NEGATIVE M I C R O B I O L O G Y R E P O R T FINAL Antimicrobial Susceptibility and Organism Identification Report Specimen Number : [id number] Requested : 11/26/20 Specimen Source : BLOOD Collected : 11/26/20 14:30 [facility] : EMERGENCY ROOM Received : 11/26/20 14:30 Requesting Physician : ROCAEL TIDWELL Patient/Specimen Tests and Comments Specimen Comments FINAL REPORT: NO GROWTH AT 5 DAYS See note Note: Testing done at [facility] : ___ Source : BLOOD ID # : [id number] FINAL Report Date : / / : Collected : 11/26/20 14:30 12/12/20.1446.BKO. 12/12/[email or web address] ETE 1 of 2 NEGATIVE NEGATIVE NEGATIVE Normal [facility] Comment on above: Performed By: #### 2 71444 ####[facility],[address] [place] [address] Microscopic examination of blood, culture CULTURE BLOOD CULTURE BLOOD SET: 1 of 2 24HOUR REPORT NEGATIVE 48HOUR REPORT POSITIVE GRAM STAIN: SEE SEPARATE REPORT. M I C R O B I O L O G Y R E P O R T FINAL Antimicrobial Susceptibility and Organism Identification Report Specimen Number : [id number] Requested : 11/26/20 Specimen Source : BLOOD Collected : 11/26/20 14:26 [facility] : EMERGENCY ROOM Received : 11/26/20 14:26 Requesting Physician : ROCAEL TIDWELL Patient/Specimen Tests and Comments Specimen Comments FINAL REPORT: GRAM NEGATIVE RODS See note Note: Testing done at [facility] : ___ Source : BLOOD ID # : [id number] FINAL Report Date : / / : Collected : 11/26/20 14:26 12/12/20.1446.BKO. 12/12/[email or web address].COMPL ETE 1 of 2 NEGATIVE POSITIVE SEE SEPARATE REPORT. Normal [facility] Comment on above: Performed By: #### 2 09621 ####[facility],[address] [place] [address] ED Provider Noteon ED Provider Note [facility] EM[facility]GENCY DE[facility] EMERGENCY DEPARTMENT ENCOUNTER Pt Name: Brandon Kulkarni Birthdate 1945 Date of evaluation: 11/26/2020 Provider: SARINA Fowler CNP Due to concern for COVID-19 in the healthcare setting I wore protective eyewear, N95 respirator and surgical mask for the entirety of the encounter. CHIEF COMPLAINT Chief Complaint Patient presents with ? Cellulitis From [facility] for cellulitis of the right hand. Hand appears red and swollen with pain upon palpation. HISTORY OF PRESENT ILLNESS (Location/Symptom, Timing/Onset,Context/Se tting, Quality, Duration, Modifying Factors, Severity) Note limiting factors. HPI Brandon Kulkarni is a 75 y.o. male who presents to the emergency department from an outside hospital for evaluation of swollen right hand. There was concern for cellulitis versus tenosynovitis versus gout at the outlying hospital. Apparently patient had been seen a few days earlier in that emergency room and was treated for gout flare. He went back there today with complaints of worsening swelling and pain. Stated that the pain had initially started over his right small finger but has since spread through his hand and wrist. He states he is having extreme pain with movement of his fifth digit. Pain is constant. Radiating from his hand up his wrist and into his forearm. Nothing makes it better. Movement and touch makes it worse. He has taken [id number]-[id number] medication with no improvement. Pain is throbbing and aching. He denies fevers, chills, numbness, tingling, or trauma to this hand. He does note that approximately 1 or 2 weeks ago he had similar swelling about his right elbow and then his left elbow. Nursing Notes were reviewed. REVIEW OFSYSTEMS (2+ for level 4; 10+ level 5) Review of Systems Constitutional: Negative. Negative for chills, diaphoresis and fever. HENT: Negative. Eyes: Negative. Respiratory: Negative. Negative for cough, chest tightness and shortness of breath. Cardiovascular: Negative. Negative for chest pain. Gastrointestinal: Negative. Negative for abdominal pain, constipation, diarrhea and vomiting. Genitourinary: Negative. Negative for dysuria. Musculoskeletal: Positive for arthralgias and joint swelling. Skin: Negative. Neurological: Negative. Negative for dizziness and light-headedness. Psychiatric/Behavioral: Negative. All other systems reviewed and are negative except as noted in history of present illness PAST MEDICAL HISTORY History reviewed. No pertinent past medical history. SURGICAL HISTORY Past Surgical History: Procedure Laterality Date ? CARDIAC SURGERY ? HX VASCULAR STENT CURRENT MEDICATIONS Discharge Medication List as of 11/27/2020 6:50 AM ALLERGIES Lisinopril and Penicillins FAMILY HISTORY History reviewed. No pertinent family history. SOCIAL HISTORY Social History Socioeconomic History ? Marital status: Single Spouse name: None ? Number of children: None ? Years of education: None ? Highest education level: None Occupational History ? None Tobacco Use ? Smoking status: Never Smoker ? Smokeless tobacco: Never Used Substance and Sexual Activity ? Alcohol use: Not Currently ? Drug use: Never ? Sexual activity: None Other Topics Concern ? None Social History Narrative ? None Social Determinants of Health Financial Resource Strain: ? Difficulty of Paying Living Expenses: Food Insecurity: ? Worried About Running Out of Food in the Last Year: ? Ran Out of Food in the Last Year: Transportation Needs: ? Lack of Transportation (Medical): ? Lack of Transportation (Non-Medical): Physical Activity: ? Days of Exercise per Week: ? Minutes of Exercise per Session: Stress: ? Feeling of Stress : Social Connections: ? Frequency of Communication with Friends and Family: ? Frequency of Social Gatherings with Friends and Family: ? Attends Christianity Services: ? Active Member of Clubs or Organizations: ? Attends Club or Organization Meetings: ? Marital Status: Intimate Partner Violence: ? Fear of Current or Ex-Partner: ? Emotionally Abused: ? Physically Abused: ? Sexually Abused: SCREENINGS PHYSICAL EXAM (up to 7 for level 4, 8 or more for level 5) ED Triage Vitals BP Temp Temp Source Pulse Resp SpO2 Height Weight 11/26/20204011/26/20204011/26/20204011/26/20204011/26/20204011/26/20204011/26/20204011/26/202040 (!) 190/77 98.2 ?F (36.8 ?C) Temporal 57 18 99 % 6' 3 (1.905 m) 245 lb (111.1 kg) Physical Exam Vitals and nursing note reviewed. Constitutional: General: He is not in acute distress. Appearance: He is well-developed. He is not ill-appearing, toxic-appearing or diaphoretic. HENT: Head: Normocephalic and atraumatic. Jaw: No trismus. Mouth/Throat: Mouth: Mucous membranes are not dry. No oral lesions. Pharynx: No oropharyngeal exudate, posterior oropharyngeal erythema or uvula swe (more content not included)... Normal [facility] ED Provider Note Emergency Department Encounter [facility] EMERGENCY DEPT Patient: Brandon Kulkarni : 1945 Date of Evaluation: 11/26/2020 ED Supervising Physician: Cherrie David MD I independently examined and evaluated Brandon Kulkarni. In brief, Brandon Kulkarni is a 75 y.o. male the past medical history significant for coronary artery disease s/p stents that presents to the emergency department for evaluation for swelling in his right upper extremity. Patient states started having swelling in the small finger a few days ago. He states that he went to the local ER and was diagnosed with gout. He states he was discharged home on medication. He states however he started noticing worsening swelling and inability to straighten out his small finger. He states today the swelling started extending into the hand and he was having excruciating pain hence returning to the emergency department. He states at the emergency department he was evaluated and given a dose of antibiotics and then referred here for evaluation by hand surgery. Patient however denies any fevers, chills, trauma to the hand, or numbness or tingling. Focused exam: Xrq-uad-qwsdixaip in no acute distress. Alert and oriented X 3. Lungs clear to auscultation bilaterally with no wheezes or crackles appreciated. Heart rate and rhythm regular with no murmurs. Abdomen soft nontender nondistended with positive bowel sounds. No edema appreciated on the lower extremities bilaterally. Right hand with swelling on the dorsal aspect with redness of the small finger worse on the flexor aspect. Patient with tenderness with attempted extension of the small finger. Radial pulses strong and palpable bilaterally. Brief ED course/MDM: Presenting for evaluation for swelling of the right hand concerning for cellulitis versus tenosynovitis versus gout flare. Patient states he previously had swelling on his left elbow is alert right elbow following stent placement. Patient did not bring any imaging from the outside hospital. Called outside hospital and obtained a CT head and without contrast report that is concerning for swelling in the DIP joint on the right hand with dorsal subcutaneous edema. Obtained x-rays of the right hand given patient did not bring imaging from outside hospital. Work-up was significant for slight elevated sedimentation rate and CRP with no leukocytosis, no anemia, no electrolyte abnormalities and no renal function impairment. CT scan from outside hospital of the hand with calcifications with no features concerning for osteomyelitis. X-rays with cortical erosion of the proximal phalanx of the fifth digit concerning for inflammation versus osteomyelitis. Orthopedic surgery was consulted to evaluate the patient. They recommended discharging this patient home on anti-inflammatory medication with outpatient follow-up. At this time they do not feel the patient has osteomyelitis and does not require antibiotics. Lab and imaging results were discussed with the patient. Discussed with the patient plan for discharge home with outpatient follow-up. Patient verbalized understanding of information given and agreed to plan. Was discharged in stable condition. All diagnostic, treatment, and disposition decisions were made by myself in conjunction with the CHARLEE. For all further details of the patient's emergency department visit, please see their documentation. (Please note that portions of this note may have been completed with a voice recognition program. Efforts were made to edit the dictations but occasionally words are mis-transcribed.) Cherrie David MD Acute Care [employer] Cherrie David MD 11/27/20 0608 [facility] EMERGENCY REPORTon 1 EMERGENCY REPORT [facility] EMERGENCY ROOM REPORT NAME ACCOUNT SEX AGE ADMIT DISCHARGE PT MED. RECORD# NUMBER DATE DATE TYPE BRANDON KULKARNI [id number] Tommy 75 11/21/20 3 L [id number] ROOM: ER DATE OF : 1945 DICTATING PHYSICIAN: Claudine Melendez CHIEF COMPLAINT: Swelling in the right fifth finger. HISTORY OF PRESENT ILLNESS: This is a 75-year-old gentleman who has a history of coronary artery disease with stent placement and is currently on Eliquis. The patient indicates over the past few days he has developed some swelling which started in the PIP joint of the fifth digit. It has been red and swollen and somewhat painful. He had started getting some redness and swelling proximal to that into the hand, so he came in today. He has had no fever. He has had no injury to the hand. He does have a history of gout. PAST MEDICAL HISTORY: Significant for coronary artery disease as well as gout. FAMILY HISTORY: See nurse's notes. SOCIAL HISTORY: He does not smoke or drink excessively. REVIEW OF SYSTEMS: General: He denies any fever, chills or weight loss. Extremities: He complains of the swelling and redness in the fifth finger. Head: No trauma or headache. Skin: No rash. All other review of systems is negative unless otherwise noted. PHYSICAL EXAMINATION: Afebrile. Vital signs are stable. General: The patient is alert and does not appear toxic. Neck: No adenopathy. Skin: No rash. Chest is clear. Cardiovascular: Regular rate and rhythm. Abdomen is soft and nontender. Extremities: The right hand reveals erythema and swelling of the PIP joint of the fifth finger. It is tender to palpation but no fluctuance. He does also have some redness and swelling of the MP joint of the fifth digit. Minimal tenderness over that area. He has 2+ radial and ulnar pulses present. Motor and sensory are intact in the radial, ulnar, and median nerve distribution. Neurovascular examination is otherwise normal in the right upper extremity. DIAGNOSTIC DATA: Laboratories ordered included a CBC as well as a uric acid. On laboratory interpretation, the CBC shows a normal white blood cell count. The uric acid is elevated at 7.8. X-ray of the right hand was also performed, and it showed some degenerative changes of the joints. Of note is the gouty changes in the fifth digit, as Page 1 of 2 [facility] Report BRANDON KULKARNI : 1945 noted by the radiologist, concerning for either gouty changes or osteomyelitis. EMERGENCY DEPARTMENT COURSE AND TREATMENT: With regards to the findings on examination, this is consistent with gout as well as an elevated uric acid. My suspicion for osteomyelitis is less with a normal white count and with no evidence of fever. The patient's presentation is much more consistent with a gouty flare. The patient is given clindamycin IV and will be placed on clindamycin at home. He will also be started on allopurinol for the gout and close follow-up with his primary physician at the OR. He was also given a referral to family practice in case he cannot get in to the OR. DIAGNOSES: Acute gout flare. Dictated By: Claudine Melendez MD 11/21/20 12:18 JOB #: [id number] Transcribed By: gene 11/21/20 12:22 Electronically signed by: Claudine Melendez M.D. 11/26/20 12:27 Page 2 of 2 BRANDON KULKARNI Emergency Room Report Normal [facility] URIC ACIDon 11-26-2020 Urate [Mass/Vol] 15.7 mg/dL High 3.5 - 7.2 [facility] Comment on above: Performed By: #### 2 83678 #### [place] [id number] CBC + DIFFon 11-21-2020 Baso # 0.10 x10EE3/UL Normal 0.00 - 0.10 [facility] Comment on above: Performed By: #### 2 72508 #### [facility],[address] [place] [address] 42359 Basophils/100 WBC (Bld) 1.0 % Normal 0.0 - 2.0 [facility] Comment on above: Performed By: #### 2 60881 #### [facility],[address] [place] [address] 48342 CBC + DIFF Normal [facility] Comment on above: Result Comment: CBC- COMPLETE BLOOD COUNT Performed By: #### 2 07331 #### [facility],[address] [place] [address] 31846 EO # 0.10 x10EE3/UL Normal 0.00 - 0.50 [facility] Comment on above: Performed By: #### 2 50227 #### [facility],[address] [place] [address] 78609 Eosinophils/100 WBC (Bld) 0.8 % Normal 0.0 - 7.0 [facility] Comment on above: Performed By: #### 2 44105 #### [facility],[address] [place] [address] Erythrocyte distribution width (RBC) [Ratio] 15.2 % Normal 12.0 - 15.6 [facility] Comment on above: Performed By: #### 2 91795 #### [facility],[address] [place] [address] Hematocrit (Bld) [Volume fraction] 41.9 % Normal 40.0 - 52.0 [facility] Comment on above: Performed By: #### 2 92996 #### [facility],[address] [place] [address] Hemoglobin (Bld) [Mass/Vol] 14.1 g/dL Normal 13.0 - 17.5 [facility] Comment on above: Performed By: #### 2 51979 #### [facility],[address] [place] [address] 23698 Lymph # 1.40 x10EE3/UL Normal 0.80 - 2.80 [facility] Comment on above: Performed By: #### 2 60072 #### [facility],[address] [place] [address] 06580 Lymphocytes/100 WBC (Bld) 15.2 % Low 20.0 - 45.0 [facility] Comment on above: Performed By: #### 2 80357 #### [facility],[address] [place], [place] [id number] MANUAL DIFF N/A Normal [facility] Comment on above: Performed By: #### 2 97072 #### [facility],[address] [place] [address] MCH (RBC) [Entitic mass] 29 pg Normal 27 - 33 [facility] Comment on above: Performed By: #### 2 70519 #### [facility],[address] [place] [address] MCHC 34 X10 3 Normal 32 - 36 [facility] Comment on above: Performed By: #### 2 86231 #### [facility],[address] [place] [address] MCV (RBC) [Entitic vol] 85 fL Normal 81 - [address] [facility] Comment on above: Performed By: #### 2 46286 #### [facility],[address] [place] [address] [place] # 1.30 x10EE3/UL High 0.20 - 1.00 [facility] Comment on above: Performed By: #### 2 17604 #### [facility],[address] [place] [address] MONOS % 14.5 % High 0.0 - 10.0 [facility] Comment on above: Performed By: #### 2 50619 #### [facility],[address] [place] [address] Morphology Augustine (Bld) [Interp] N/A Normal [facility] Comment on above: Result Comment: {CD] Performed By: #### 2 79612 #### [facility],[address] [place] [address] Neut # 6.30 x10EE3/UL Normal 1.50 - 7.10 [facility] Comment on above: Performed By: #### 2 41126 #### [facility],[address] [place] [address] Neutrophils/100 WBC (Bld) 68.5 % Normal 46.0 - 76.0 [facility] Comment on above: Performed By: #### 2 57815 #### [facility],[address] [place] [address] 66895 PLATELET 194 x10EE3/UL Normal 150 - 450 [facility] Comment on above: Performed By: #### 2 82863 #### [facility],[address] [place] [address] 12533 Platelet mean volume (Bld) [Entitic vol] 9.3 fL Normal 6.4 - 10.5 [facility] Comment on above: Result Comment: AUTO MATED DIFFERENTIAL Performed By: #### 2 [id number] #### [facility],[address] [place] [address] 65531 RBC 4.92 x 10EE6/UL Normal 4.50 - 6.00 [facility] Comment on above: Performed By: #### 2 40305 #### [facility],[address] [place] [address] 91894 WBC 9.3 x 10EE3/UL Normal 4.5 - 10.8 [facility] Comment on above: Performed By: #### 2 98610 #### [facility],[address] [place] [address] 00361 HAND RT MIN 3 VIEWSon 2020 HAND RT MIN [address] [address] Patient: BRANDON KULKARNI Phone#: : 1945 Age: 75 Gender: M Pt. Type: ER Account: [id number] Location: 052 Ordering: DR. CLAUDINE MELENDEZ Exam Date: 11/21/2020/11:07 Family Phys: Charge Code: [id number] Physician: Ziebach Order #: [id number] DLP Dose#: PROCEDURE: X-RAY HAND RT COMPLETE MIN 3 VIEWS COMPARISON: None. INDICATIONS: Swelling. FINDINGS: BONES: Degenerative changes are present at the interphalangeal joints and at the wrist. There are erosive changes at the interphalangeal joints of the 5th digit. At the medial aspect of the head of the proximal phalanx of the 5th digit there appears to be cortical disruption. SOFT TISSUES: Soft tissue swelling is present at the 5th digit but most marked at the PIP joint. EFFUSION: None visible. OTHER: Negative. CONCLUSION: 1. Degenerative changes are present. 2. Erosive changes are present at the interphalangeal joints of the 5th digit. There is cortical disruption at the head of the proximal phalanx of the 5th digit. Soft tissue swelling is present. Possibility of osteomyelitis is raised. Erosions related to gout cannot be excluded. Dictated by: Ruby Duarte MD on 11/21/2020 at 11:19 Approved by: Ruby Duarte MD on 11/21/2020 at 11:21 Normal [facility] PROTHROMBIN TIME AND INRon 0 11-21-2020 INR Coag (PPP) [Relative time] 1.6 {INR} High 0.8 - 1.2 [facility] Comment on above: Result Comment: T HE HEMOSIL THROMBOPLASTIN REAGENT USED IN THE PROTHROMBIN TIME TEST INTERACTS WITH THE DRUG CUBICIN (DAPTOMYCIN) AND WILL RESULT IN FALSELY ELEVATED PT / INR RESULTS INR INTERPRETATION INR INDICATION PREVENTION AND TREATMENT OF THROMBOEMBOLISM ASSOCIATED WITH: 2.0 - 3.0 ATRIAL FIBRILLATION, BIOPROSTHETIC HEART VALVES, PULMONARY EMBOLISM, VENOUS THROMBOSIS, SYSTEMIC EMBOLISM POST MYOCARDIAL INFARCTION 2.5 - 3.5 MECHANICAL HEART VALVES Performed By: #### 2 64833 #### [facility],[address] [place] [address]234 PROTHROMBIN TIME AND INR Normal [facility] Comment on above: Result Comment: PROT HROMBIN TIME AND INR Performed By: #### 2 72126 #### [facility],[address] [place] [address] 23638 PT-COUMADIN 18.4 sec High 9.3 - 14.1 [facility] Comment on above: Performed By: #### 2 96771 #### [facility],[address] [place] [address] 44137 URIC ACIDon 11-21-2020 Urate [Mass/Vol] 7.8 mg/dL High 3.5 - 7.2 [facility] Comment on above: Performed By: #### 2 22631 ####[facility],[address] [place] [address]65 EMERGENCY REPORTon 1 EMERGENCY REPORT [facility] EMERGENCY ROOM REPORT NAME ACCOUNT SEX AGE ADMIT DISCHARGE PT MED. RECORD# NUMBER DATE DATE TYPE BRANDON KULKARNI [id number] M 74 09/27/20 09/27/20 3 L [id number] ROOM: ER DATE OF : 1945 DICTATING PHYSICIAN: Jesse Wharton HISTORY OF PRESENT ILLNESS: The patient is a 74-year-old male who presents to the ED for evaluation of arm pain. The patient had a left heart catheterization performed on Tuesday of this week, and had 2 stents placed. The procedure was uneventful and he was discharged home the next day. He has noted swelling, redness, and pain along his right elbow for the past 2 days, prompted a visit to the ED today. He did take Tylenol this morning, which helped somewhat with the pain. He noticed no nausea or vomiting, but was febrile here today. He denies trauma. He denies prior orthopedic procedures to his elbow. The patient's denies any chest pain or shortness of breath. He did state that his was concerned that he may have developed a blood clot. PAST MEDICAL HISTORY: He has a past medical history notable for hypertension, as well as atrial fibrillation, which he takes Eliquis and Coumadin. He also has CAD, for which he had 2 stents placed earlier this week. PAST SURGICAL HISTORY: Past surgical history notable for a prior orthopedic procedure to his left knee. SOCIAL HISTORY: He lives at home. He is a nonsmoker. He denies alcohol or illicit drugs. REVIEW OF SYSTEMS: A 10-point review of systems was performed and was positive only for right arm pain and swelling, as well as some redness. Review of systems was otherwise negative. PHYSICAL EXAMINATION: Vital signs: Blood pressure 187/78, pulse 66, respiratory rate 18, temperature 100.2, O2 saturation 96% on room air. General: He is in no acute distress. He is pleasant. HEENT: No scleral icterus. Extraocular muscles are intact. Mucous membranes are moist. The patient speaks in full sentences without difficulty. Cardiac exam: He has a regular rate and rhythm. No murmurs auscultated. Lungs are clear to auscultation bilaterally. Abdomen: Soft, nontender, and nondistended. Right upper extremity exam: He does have a needle line visible over the patient's right radius. He does have palpable radial and ulnar pulses. There is some ecchymosis noted to the medial forearm. The patient has a palpable bursa to his olecranon. There is some warmth and erythema over the patient's bursa and the surrounding skin as well. He has good active and passive range of motion at the elbow that is somewhat limited when you go beyond 120 degrees. Good pronation and supination at the elbow. No palpable Page 1 of 2 BRANDON KULKARNI Emergency Room Report CAYLA BRANDON Ledbetter : 1945 effusions. No other rashes noted on the patient's skin exam. The patient's lower extremity exam is benign. Neurologic exam: He is alert and oriented x3. Psychiatric: Normal affect. DIAGNOSTIC DATA: The patient's chest x-ray was notable for some calcific bursitis, as well as an anterior and posterior sail sign consistent with a probable effusion. However, I have a low suspicion for septic arthritis based on the patient's physical exam, which is notable for erythema and tenderness over his bursa with good full range of motion. The patient's CBC was notable for a white blood cell count of 11.5. His ESR and CRP were also elevated at greater than 11 with the CRP and 20 with his ESR. His blood work was otherwise unremarkable. MEDICAL DECISION MAKING/EMERGENCY DEPARTMENT COURSE AND TREATMENT: A sepsis workup was initiated based on the patient's fever and apparent infectious bursitis. However, the patient is very well-appearing. His temperature when rechecked orally was also within normal limits. The patient received Rocephin and doxycycline while in the emergency room. He also received IV Toradol. Upon reevaluation, the patient reported improvement of symptoms. He had no further fevers while in the emergency room. DIAGNOSIS: Infectious bursitis and cellulitis. PLAN/DISPOSITION: I discussed close outpatient follow up with the patient with a presumptive diagnosis of infectious bursitis. The patient was also given very strict return precautions, which included worsening pain, nausea or vomiting, elbow swelling, or worsening pain along his elbow due to concern for septic arthritis, though I think this diagnosis is highly unlikely at this time. The patient verbalized understanding. All of his questions were answered. His elbow as wrapped, and he was provided prescriptions for steroids and antibiotics. All of his questions were answered. He was discharged in stable condition. Dictated By: Jesse Wharton DO 09/28/20 01:56 JOB #: [id number] Transcribed By: am 09/28/20 20:03 Electronically signed by: Jesse Wharton DO 09/29/20 06:05 Page 2 of 2 BRANDON KULKARNI Emergency Room Report Normal [facility] BMP with eGFRon 09-27-2020 AGE 74 years Normal [facility] Comment on above: Performed By: #### 2 56226 #### [address] [address] Anion gap [Moles/Vol] 17 mmol/L Normal 10 - 20 [facility] Comment on above: Performed By: #### 2 32030 #### [facility],[address] [place] [address]357 BMP with eGFR Normal [facility] Comment on above: Result Comment: BASI C METABOLIC PANEL Performed By: #### 2 59033 #### [address] [address] Calcium [Mass/Vol] 8.7 mg/dL Normal 8.5 - 10.1 [facility] Comment on above: Performed By: #### 2 54822 #### [facility],[address] [place] [address]3968 Chloride [Moles/Vol] 97 mmol/L Low 98 - 107 [facility] Comment on above: Performed By: #### 2 06387 #### [address] [address] CO2 [Moles/Vol] 24.0 mmol/L Normal 21.0 - 32.0 [facility] Comment on above: Performed By: #### 2 67801 #### [address] [address] Creatinine [Mass/Vol] 1.09 mg/dL Normal 0.70 - 1.30 [facility] Comment on above: Performed By: #### 2 07935 #### [facility],[address] [place], [place] [phone] GFR/1.73 sq M.predicted among non-blacks MDRD (S/P/Bld) [Vol rate/Area] mL/min/{1.73_m2} Normal 60 - 999 [facility] Comment on above: Performed By: #### 2 82766 #### [facility],[address] [place] [address] Result Comment: ACCO RDING TO THE NATIONAL KIDNEY DISEASE EDUCATION PROGRAM(NKDE), A NORMAL eGFR IS A VALUE GREATER THAN OR EQUAL TO 60 ML/MIN/1.73 SQ METERS. CHRONIC KIDNEY DISEASE: <60mL/MIN/1.73 SQ METERS KIDNEY FAILURE: <15mL/MIN/1.73 SQ METERS THIS TEST SHOULD ONLY BE USED FOR PATIENTS 18 YEARS OF AGE AND OLDER. Glucose [Mass/Vol] 125 mg/dL High 74 - 106 [facility] Comment on above: Performed By: #### 2 57975 #### [place] [id number] Potassium [Moles/Vol] 3.3 mmol/L Low 3.5 - 5.1 [facility] Comment on above: Performed By: #### 2 07934 #### [facility],[address] [place], [place] [phone] Sodium [Moles/Vol] 135 mmol/L Low 136 - 145 [facility] Comment on above: Performed By: #### 2 53774 #### [place] [id number] Urea nitrogen [Mass/Vol] 16 mg/dL Normal 7 - 18 [facility] Comment on above: Performed By: #### 2 16762 #### [facility],[address] [place], [place] [phone] C-REACTIVE PROTEINon 021 CRP [Mass/Vol] mg/L High 0.00 - 0.90 [facility] Comment on above: Performed By: #### 2 41891 #### [facility],[address] [place] [address] 48980 CBC + DIFFon 09-27-2020 Baso # 0.10 x10EE3/UL Normal 0.00 - 0.10 [facility] Comment on above: Performed By: #### 2 92244 ####[facility],[address] [place] [address] 92203 Basophils/100 WBC (Bld) 0.6 % Normal 0.0 - 2.[address] [facility] Comment on above: Performed By: #### 2 20388 ####[facility],[address] [place] [address]24 CBC + DIFF Normal [facility] Comment on above: Result Comment: CBC- COMPLETE BLOOD COUNT Performed By: #### 2 18888 ####[facility],[address] [place] [address]30 EO # 0.00 x10EE3/UL Normal 0.00 - 0.50 [facility] Comment on above: Performed By: #### 2 20200 ####[facility],[address] [place] [address] 66954 Eosinophils/100 WBC (Bld) 0.2 % Normal 0.0 - 7.0 [facility] Comment on above: Performed By: #### 2 86448 ####[facility],[address] [place] [address]270 Erythrocyte distribution width (RBC) [Ratio] 15.0 % Normal 12.0 - 15.6 [facility] Comment on above: Performed By: #### 2 13514 ####[facility],[address] [place] [address]375 Hematocrit (Bld) [Volume fraction] 40.8 % Normal 40.0 - 52.0 [facility] Comment on above: Performed By: #### 2 18341 ####[facility],[address] [place] [address]149 Hemoglobin (Bld) [Mass/Vol] 13.6 g/dL Normal 13.0 - 17.5 [facility] Comment on above: Performed By: #### 2 33534 ####[facility],[address] [place], [place] [phone] Lymph # 1.40 x10EE3/UL Normal 0.80 - 2.80 [facility] Comment on above: Performed By: #### 2 71107 ####[facility],[address] [place], [place] [phone] Lymphocytes/100 WBC (Bld) 12.2 % Low 20.0 - 45.0 [facility] Comment on above: Performed By: #### 2 16047 ####[facility],[address] [place] [address] 69820 MANUAL DIFF N/A Normal [facility] Comment on above: Performed By: #### 2 85732 ####[facility],[address] [place] [address] 12373 MCH (RBC) [Entitic mass] 29 pg Normal 27 - 33 [facility] Comment on above: Performed By: #### 2 70713 ####[facility],[address] [place] [address] 12728 MCHC 33 X10 3 Normal 32 - 36 [facility] Comment on above: Performed By: #### 2 85416 ####[facility],[address] [place] [address] 26229 MCV (RBC) [Entitic vol] 87 fL Normal 81 - [address] [facility] Comment on above: Performed By: #### 2 53039 ####[facility],[address] [place] [address] 43090 [place] # 1.80 x10EE3/UL High 0.20 - 1.00 [facility] Comment on above: Performed By: #### 2 59242 ####[facility],[address] [place] [address] 96592 MONOS % 15.5 % High 0.0 - 10.0 [facility] Comment on above: Performed By: #### 2 52474 ####[facility],[address] [place] [address] 67875 Morphology Augustine (Bld) [Interp] N/A Normal [facility] Comment on above: Result Comment: {CD] Performed By: #### 2 96144 ####[facility],[address] [place] [address] 93545 Neut # 8.20 x10EE3/UL High 1.50 - 7.10 [facility] Comment on above: Performed By: #### 2 41709 ####[address] [address] Neutrophils/100 WBC (Bld) 71.5 % Normal 46.0 - 76.0 [facility] Comment on above: Performed By: #### 2 27172 ####[address] [address] PLATELET 176 x10EE3/UL Normal 150 - 450 [facility] Comment on above: Performed By: #### 2 05047 ####[address] [address] Platelet mean volume (Bld) [Entitic vol] 10.4 fL Normal 6.4 - 10.5 [facility] Comment on above: Result Comment: AUTO MATED DIFFERENTIAL Performed By: #### 2 59513 ####[facility],[address] [place] [address] 50221 RBC 4.71 x 10EE6/UL Normal 4.50 - 6.00 [facility] Comment on above: Performed By: #### 2 67672 ####[facility],[address] [place] [address] 53018 WBC 11.5 x 10EE3/UL High 4.5 - 10.8 [facility] Comment on above: Performed By: #### 2 24920 ####[facility],[address] [place] [address] 99282 ELBOW COMPLETE RTon 09-28-19 21 ELBOW COMPLETE RT [address] [address] Patient: BRANDON KULKARNI Phone#: : 1945 Age: 74 Gender: M Pt. Type: ER Account: [id number] Location: [facility] Ordering: DR. JESSE WHARTON Exam Date: 09/27/2020/20:04 Family Phys: Charge Code: [id number] Physician: Ziebach Order #: [id number] DLP Dose#: PROCEDURE: X-RAY ELBOW RT MIN 3 VIEWS COMPARISON: None. INDICATIONS: Pain. FINDINGS: BONES: Degenerative changes are present at the elbow. SOFT TISSUES: Extensive soft tissue calcification is present posterior to the olecranon. There is soft tissue swelling versus bursal fluid. Soft tissue edema is present dorsal to the humerus. EFFUSION: Moderate joint effusion is present. OTHER: Negative. CONCLUSION: 1. Findings consistent with calcific bursitis. There does appear to be thickening of the bursa. 2. Moderate joint effusion is present. Dictated by: Ruby Duarte MD on 09/28/2020 at 22:24 Approved by: Ruby Duarte MD on 09/28/2020 at 22:26 Normal [facility] LACTATEon 09-27-2020 Lactate [Moles/Vol] 1.2 mmol/L Normal 0.4 - 2.0 [facility] Comment on above: Performed By: #### 2 30246 ####[facility],[address] [place] [address] SEDRATEon 09-27-2020 SEDRATE 50 mm/hr High 0 - 20 [facility] Comment on above: Performed By: #### 2 46070 ####[facility],[address] [place] [address] .Auto Diffon 09-22-2020 Basophil, Absolute 0.10 10 3/mcL Normal 0.00-0.27 [facility] ([place]) Comment on above: Performed By: #### C BC, ADIFF, ANEU, CMP, GFR #### [address] [address] Basophils/100 WBC (Bld) 1.0 % Normal 0.0-2.5 [facility] ([place]) Comment on above: Performed By: #### C BC, ADIFF, ANEU, CMP, GFR #### [address] [address] Eosinophil, Absolute 0.10 10 3/mcL Normal 0.00-0.65 [facility] ([place]) Comment on above: Performed By: #### C BC, ADIFF, ANEU, CMP, GFR #### [address] [address] Eosinophils/100 WBC (Bld) 1.0 % Normal 0.0-6.0 [facility] ([place]) Comment on above: Performed By: #### C BC, ADIFF, ANEU, CMP, GFR #### [address] [address] Lymphocyte, Absolute 1.40 10 3/mcL Normal 0.90-4.32 [facility] ([place]) Comment on above: Performed By: #### C BC, ADIFF, ANEU, CMP, GFR #### [address] [address] Lymphocytes/100 WBC (Bld) 19.5 % Low 20.0-40.0 [facility] ([place]) Comment on above: Performed By: #### C BC, ADIFF, ANEU, CMP, GFR #### [address] [address] Monocyte, Absolute 0.90 10 3/mcL Normal 0.09-1.40 [facility] ([place]) Comment on above: Performed By: #### C BC, ADIFF, ANEU, CMP, GFR #### [address] [address] Monocytes/100 WBC (Bld) 12.8 % Normal 2.0-13.0 [facility] ([place]) Comment on above: Performed By: #### C BC, HONORIO, ANEU, CMP, GFR #### [address] [address] Neutrophils/100 WBC (Bld) 65.7 % Normal 50.0-75.0 [facility] ([place]) Comment on above: Performed By: #### C BC, HONORIO, ANEU, CMP, GFR #### [address] [address] .GFRon 09-22-2020 GFR >60 Normal [facility] ([place]) Comment on above: Result Comment: GFR Population mean for , Non- Americans Ages 20-29 = 116 mL/min/1.73 sq.m. Ages 30-39 = 107 mL/min/1.73 sq.m. Ages 40-49 = 99 mL/min/1.73 sq.m. Ages 50-59 = 93 mL/min/1.73 sq.m. Ages 60-69 = 85 mL/min/1.73 sq.m. Ages 70+ = 75 mL/min/1.73 sq.m. Chronic Kidney Disease: Less than 60 mL/min/1.73 square meters End Stage Renal Disease: Less than 15 mL/min/1.73 square meters Performed By: #### C BC, ADDARIA, ANEU, CMP, GFR #### [address] [address] GFR Non- >60 Normal [facility] ([place]) Comment on above: Result Comment: GFR Population mean for , Non- Americans Ages 20-29 = 116 mL/min/1.73 sq.m. Ages 30-39 = 107 mL/min/1.73 sq.m. Ages 40-49 = 99 mL/min/1.73 sq.m. Ages 50-59 = 93 mL/min/1.73 sq.m. Ages 60-69 = 85 mL/min/1.73 sq.m. Ages 70+ = 75 mL/min/1.73 sq.m. Chronic Kidney Disease: Less than 60 mL/min/1.73 square meters End Stage Renal Disease: Less than 15 mL/min/1.73 square meters Performed By: #### C BC, ADIFF, ANEU, CMP, GFR #### [place] [address] .NEUABSon 09-22-2020 Neutrophil, Absolute 4.70 10 3/mcL Normal 2.25-8.10 [facility] ([place]) Comment on above: Performed By: #### C BC, ADIFF, ANEU, CMP, GFR #### [place] [address] CBCon 09-22-2020 Erythrocyte distribution width (RBC) [Ratio] 15.1 % Normal 11.5-15.5 [facility] ([place]) Comment on above: Performed By: #### C BC, ADIFF, ANEU, CMP, GFR #### [place] [address] Hematocrit (Bld) [Volume fraction] 40.1 % Normal 40.0-52.0 [facility] ([place]) Comment on above: Performed By: #### C BC, ADIFF, ANEU, CMP, GFR #### [place] [address] Hgb 13.9 G/dL Normal 13.0-17.5 [facility] ([place]) Comment on above: Performed By: #### C BC, ADIFF, ANEU, CMP, GFR #### [place] [address] MCH (RBC) [Entitic mass] 30.0 pg Normal 27.0-33.0 [facility] ([place]) Comment on above: Performed By: #### C BC, ADIFF, ANEU, CMP, GFR #### [place] [address] MCHC 34.7 G/dL Normal 32.0-36.0 [facility] ([place]) Comment on above: Performed By: #### C BC, ADIFF, ANEU, CMP, GFR #### [place] [address] MCV (RBC) [Entitic vol] 86.3 fL Normal 81.0-100.0 [facility] ([place]) Comment on above: Performed By: #### C BC, ADIFF, ANEU, CMP, GFR #### [place] [address] Platelet 150 10 3/mcL Normal 150-450 [facility] ([place]) Comment on above: Performed By: #### C BC, ADIFF, ANEU, CMP, GFR #### [place] [address] Platelet mean volume (Bld) [Entitic vol] 9.7 fL Normal 6.4-10.5 [facility] ([place]) Comment on above: Performed By: #### C BC, ADIFF, ANEU, CMP, GFR #### [place] [address] RBC 4.65 10 6/mcL Normal 4.50-6.00 [facility] ([place]) Comment on above: Performed By: #### C BC, ADIFF, ANEU, CMP, GFR #### [place] [address] WBC 7.20 10 3/mcL Normal 4.50-10.80 [facility] ([place]) Comment on above: Performed By: #### C BC, ADIFF, ANEU, CMP, GFR #### [place] [address] CMPon 09-22-2020 Albumin Level 3.9 G/dL Normal 3.2-4.8 [facility] ([place]) Comment on above: Performed By: #### C BC, ADIFF, ANEU, CMP, GFR #### [place] [address] Albumin/Globulin [Mass ratio] 1.3 {ratio} Normal 0.9-1.6 [facility] ([place]) Comment on above: Performed By: #### C BC, ADIFF, ANEU, CMP, GFR #### [place] [address] ALP [Catalytic activity/Vol] 95 U/L Normal 38-126 [facility] ([place]) Comment on above: Performed By: #### C BC, ADIFF, ANEU, CMP, GFR #### [address] [address] ALT [Catalytic activity/Vol] 15 U/L Normal 12-55 [facility] ([place]) Comment on above: Performed By: #### C BC, ADIFF, ANEU, CMP, GFR #### [address] [address] AST [Catalytic activity/Vol] 18 U/L Normal 8-34 [facility] ([place]) Comment on above: Performed By: #### C BC, ADIFF, ANEU, CMP, GFR #### [address] [address] Bili Total 1.40 mg/dL High 0.20-1.20 [facility] ([place]) Comment on above: Result Comment: Use of this assay is not recommended for patients undergoing treatment with eltrombopag due to the potential for falsely elevated results. Performed By: #### C BC, ADIFF, ANEU, CMP, GFR #### [place] [id number] BUN/Creatinine Ratio 17.2 ratio Normal 10.0-22.0 [facility] ([place]) Comment on above: Performed By: #### C BC, ADIFF, ANEU, CMP, GFR #### [address] [address] Calcium [Mass/Vol] 9.6 mg/dL Normal 8.7-10.4 [facility] ([place]) Comment on above: Result Comment: No te - New Reference Range in effect 19 Performed By: #### C BC, ADIFF, ANEU, CMP, GFR #### [address] [address] Chloride [Moles/Vol] 108 mmol/L Normal 98-110 [facility] ([place]) Comment on above: Performed By: #### C BC, ADIFF, ANEU, CMP, GFR #### [address] [address] CO2 [Moles/Vol] 23 mmol/L Normal 22-32 [facility] ([place]) Comment on above: Performed By: #### C BC, ADIFF, ANEU, CMP, GFR #### [address] [address] Creatinine [Mass/Vol] 0.93 mg/dL Normal 0.60-1.40 [facility] ([place]) Comment on above: Performed By: #### C BC, ADIFF, ANEU, CMP, GFR #### [address] [address] Electrolyte Balance 8.0 mEq/L Normal 4.0-15.0 [facility] ([place]) Comment on above: Performed By: #### C BC, ADIFF, ANEU, CMP, GFR #### [address] [address] Globulin 3.1 G/dL Normal 1.5-3.8 [facility] ([place]) Comment on above: Performed By: #### C BC, ADIFF, ANEU, CMP, GFR #### [place] [id number] Glucose [Mass/Vol] 122 mg/dL High 82-115 [facility] ([place] Comment on above: Performed By: #### C BC, ADIFF, ANEU, CMP, GFR #### [place] [id number] Potassium [Moles/Vol] 3.4 mmol/L Low 3.5-5.0 [facility] ([place]) Comment on above: Performed By: #### C BC, ADIFF, ANEU, CMP, GFR #### [address] [address] Sodium [Moles/Vol] 139 mmol/L Normal 136-145 [facility] ([place] Comment on above: Performed By: #### C BC, ADIFF, ANEU, CMP, GFR #### [place] [id number] Total Protein 7.0 G/dL Normal 5.7-8.2 [facility] ([place]) Comment on above: Result Comment: No te - New Reference Range in effect 19 Performed By: #### C BC, ADIFF, ANEU, CMP, GFR #### [facility] [address] [place] [address] Urea nitrogen [Mass/Vol] 16.0 mg/dL Normal 8.0-22.0 [facility] ([place]) Comment on above: Performed By: #### C BC, ADIFF, ANEU, CMP, GFR #### [facility] [address] [place] [address] BMP with eGFRon 09-17-2020 AGE 74 years Normal [facility] Comment on above: Performed By: #### 2 97783 ####[facility],[address] [place] [address] Anion gap [Moles/Vol] 15 mmol/L Normal 10 - 20 [facility] Comment on above: Performed By: #### 2 93457 ####[facility],[address] [place] [address] BMP with eGFR Normal [facility] Comment on above: Result Comment: BASI C METABOLIC PANEL Performed By: #### 2 32810 ####[facility],[address] [place] [address] Calcium [Mass/Vol] 9.0 mg/dL Normal 8.5 - 10.1 [facility] Comment on above: Performed By: #### 2 65966 ####[facility],[address] [place] [address] Chloride [Moles/Vol] 102 mmol/L Normal 98 - 107 [facility] Comment on above: Performed By: #### 2 42417 ####[facility],[address] [place] [address] CO2 [Moles/Vol] 26.6 mmol/L Normal 21.0 - 32.0 [facility] Comment on above: Performed By: #### 2 24548 ####[facility],[address] [place] [address] Creatinine [Mass/Vol] 1.22 mg/dL Normal 0.70 - 1.30 [facility] Comment on above: Performed By: #### 2 11429 ####[facility],[address] [place] [address] eGFR 58 ML/MINUTE Low 60 - 999 [facility] Comment on above: Performed By: #### 2 61612 ####[facility],[address] [place] [address] GFR/1.73 sq M.predicted among non-blacks MDRD (S/P/Bld) [Vol rate/Area] mL/min/{1.73_m2} Normal 60 - 999 [facility] Comment on above: Result Comment: ACCO RDING TO THE NATIONAL KIDNEY DISEASE EDUCATION PROGRAM(NKDE), A NORMAL eGFR IS A VALUE GREATER THAN OR EQUAL TO 60 ML/MIN/1.73 SQ METERS. CHRONIC KIDNEY DISEASE: <60mL/MIN/1.73 SQ METERS KIDNEY FAILURE: <15mL/MIN/1.73 SQ METERS THIS TEST SHOULD ONLY BE USED FOR PATIENTS 18 YEARS OF AGE AND OLDER. Performed By: #### 2 54276 ####[facility],[address] [place] [address] Glucose [Mass/Vol] 94 mg/dL Normal 74 - 106 [facility] Comment on above: Performed By: #### 2 64196 ####[facility],[address] [place] [address] Potassium [Moles/Vol] 3.7 mmol/L Normal 3.5 - 5.1 [facility] Comment on above: Performed By: #### 2 08738 ####[facility],[address] [place] [address] Sodium [Moles/Vol] 140 mmol/L Normal 136 - 145 [facility] Comment on above: Performed By: #### 2 53307 ####[facility],[address] [place] [address] Urea nitrogen [Mass/Vol] 11 mg/dL Normal 7 - 18 [facility] Comment on above: Performed By: #### 2 12722 ####[facility],[address] [place] [address] CBC + DIFFon 09-17-2020 Baso # 0.00 x10EE3/UL Normal 0.00 - 0.10 [facility] Comment on above: Performed By: #### 2 28455 ####[facility],[address] [place] [address] Basophils/100 WBC (Bld) 0.6 % Normal 0.0 - 2.[address] [facility] Comment on above: Performed By: #### 2 45706 ####[facility],[address] [place] [address] CBC + DIFF Normal [facility] Comment on above: Result Comment: CBC- COMPLETE BLOOD COUNT Performed By: #### 2 17041 ####[facility],[address] [place] [address] EO # 0.10 x10EE3/UL Normal 0.00 - 0.50 [facility] Comment on above: Performed By: #### 2 88271 ####[facility],[address] [place] [address] Eosinophils/100 WBC (Bld) 0.9 % Normal 0.0 - 7.0 [facility] Comment on above: Performed By: #### 2 14491 ####[facility],[address] [place] [address] Erythrocyte distribution width (RBC) [Ratio] 15.2 % Normal 12.0 - 15.6 [facility] Comment on above: Performed By: #### 2 14449 ####[facility],[address] [place] [address] Hematocrit (Bld) [Volume fraction] 41.7 % Normal 40.0 - 52.0 [facility] Comment on above: Performed By: #### 2 15781 ####[facility],[address] [place] [address] Hemoglobin (Bld) [Mass/Vol] 14.0 g/dL Normal 13.0 - 17.5 [facility] Comment on above: Performed By: #### 2 42505 ####[facility],[address] [place] [address] Lymph # 1.30 x10EE3/UL Normal 0.80 - 2.80 [facility] Comment on above: Performed By: #### 2 01818 ####[place] [address] Lymphocytes/100 WBC (Bld) 16.1 % Low 20.0 - 45.0 [facility] Comment on above: Performed By: #### 2 03142 ####[place] [address] MANUAL DIFF N/A Normal [facility] Comment on above: Performed By: #### 2 01478 ####[place] [address] MCH (RBC) [Entitic mass] 29 pg Normal 27 - 33 [facility] Comment on above: Performed By: #### 2 50724 ####[place] [address] MCHC 34 X10 3 Normal 32 - 36 [facility] Comment on above: Performed By: #### 2 35536 ####[place] [address] MCV (RBC) [Entitic vol] 87 fL Normal 81 - [address] [facility] Comment on above: Performed By: #### 2 77148 ####[place] [address] [place] # 1.10 x10EE3/UL High 0.20 - 1.00 [facility] Comment on above: Performed By: #### 2 34078 ####[place] [address] MONOS % 13.4 % High 0.0 - 10.0 [facility] Comment on above: Performed By: #### 2 63617 ####[facility],[address] [place], [place] [address] Morphology [place] (Bld) [Interp] N/A Normal [facility] Comment on above: Result Comment: {CD] Performed By: #### 2 77737 ####[facility],[address] [place] [address] Neut # 5.70 x10EE3/UL Normal 1.50 - 7.10 [facility] Comment on above: Performed By: #### 2 97826 ####[place] [address] Neutrophils/100 WBC (Bld) 69.0 % Normal 46.0 - 76.0 [facility] Comment on above: Performed By: #### 2 89207 ####[place] [address] PLATELET 196 x10EE3/UL Normal 150 - 450 [facility] Comment on above: Performed By: #### 2 24859 ####[place] [address] Platelet mean volume (Bld) [Entitic vol] 10.1 fL Normal 6.4 - 10.5 [facility] Comment on above: Result Comment: AUTO MATED DIFFERENTIAL Performed By: #### 2 08096 ####[place] [id number] RBC 4.78 x 10EE6/UL Normal 4.50 - 6.00 [facility] Comment on above: Performed By: #### 2 99816 ####[place] [address] WBC 8.2 x 10EE3/UL Normal 4.5 - 10.8 [facility] Comment on above: Performed By: #### 2 88208 ####[place] [address] PROTHROMBIN TIME AND INRon 0 09-17-2020 INR Coag (PPP) [Relative time] 1.5 {INR} High 0.8 - 1.2 [facility] Comment on above: Result Comment: T HE HEMOSIL THROMBOPLASTIN REAGENT USED IN THE PROTHROMBIN TIME TEST INTERACTS WITH THE DRUG CUBICIN (DAPTOMYCIN) AND WILL RESULT IN FALSELY ELEVATED PT / INR RESULTS INR INTERPRETATION INR INDICATION PREVENTION AND TREATMENT OF THROMBOEMBOLISM ASSOCIATED WITH: 2.0 - 3.0 ATRIAL FIBRILLATION, BIOPROSTHETIC HEART VALVES, PULMONARY EMBOLISM, VENOUS THROMBOSIS, SYSTEMIC EMBOLISM POST MYOCARDIAL INFARCTION 2.5 - 3.5 MECHANICAL HEART VALVES Performed By: #### 2 36715 #### [place] [address] PROTHROMBIN TIME AND INR Normal [facility] Comment on above: Result Comment: PROT HROMBIN TIME AND INR Performed By: #### 2 08253 #### [place] [address] PT-COUMADIN 17.3 sec High 9.3 - 14.1 [facility] Comment on above: Performed By: #### 2 40532 #### [place] [address] CT CORONARY ANGIOGRAPHY W+W/ O CONTRASTon 09-13-2020 CT CORONARY ANGIOGRAPHY W+W/O CONTRAST ORIGINAL CT CORONARY ANGIOGRAPHY W+W/O CONTRAST CLINICAL STATEMENT: shortness of breath COMPARISON: None FINDINGS: TECHNIQUE: 1. Noncontrast CT of the heart was obtained for calcium scoring. 2. CTA with IV contrast performed using prospective or retrospective ECG gating about 1 cm above the AV to the diaphragm. FOV is very small to best evaluate the coronary arteries. Most of the non-coronary chest anatomy is excluded in the FOV. 3. 3D postprocessing: MPR, MIP, +/- CPR, and volume rendering were performed. 4. This exam was performed according to our departmental dose optimization program, and includes the following measures where applicable: automated exposure control, adjustment of the mAs and/or kVp according to patient size and/or exam, and an iterative reconstruction algorithm. 5. This report adheres to SCCT 2009 reporting guidelines entitled, SCCT Guidelines for the Interpretation and Reporting of Coronary Computed Tomographic Angiography MEDS: PO metoprolol (mg): None IV metoprolol (mg): None Nitroglycerin (mg): None COMPLICATIONS: None ACQUISITION HR (bpm): 51-104, Irregular rhythm. TECHNICAL QUALITY: Acceptable with moderate artifacts. LIMITATIONS: Suboptimal contrast opacification with venous contamination as well SCCT Stenosis Severity Grading: Normal: 0% stenosis Minimal: <25% stenosis Mild: 25-49% stenosis Moderate: 50-69% stenosis Severe: 70-99% stenosis Occluded (100%) Abbreviations: LM: left main, RCA: right coronary artery, PDA: posterior descending artery, PLB: posterolateral branch, AM: acute marginal, LAD: left anterior descending, LCx: left circumflex artery, OM: obtuse marginal, Dx: diagonal, D1: first diagonal, D2: second diagnonal, HR: heart rate, RI: ramus intermedius, PA: pulmonary artery FINDINGS: CORONARY CALCIUM SCORING Percentile (based on age/sex normogram): 75 AGATSTON SCORE LM: 0 LAD: 788 LCx: 0 RCA: 79.9 TOTAL: 862 Calcium Volume (mm^3): 604 Equivalent Mass (mg): 120 Refer to PACS images for more information regarding calcium scoring ([email or web address] .La Ruche qui dit Oui) DOMINANCE: Left ANOMALIES: Normal origins and course. LM gives rise to the LAD and LCx. RCA Prox: Mild calcified plaque. Focal 70-80% stenosis from calcification multiple centimeters distal to the RCA origin. Mid: No plaque. No stenosis. Distal: Atrophic. No plaque. No stenosis. AM: No plaque. No stenosis. LM: No plaque. No stenosis. LCx, OMs: No plaque. No stenosis. LAD Prox: Mild calcified plaque. Short segment of 20-30% stenosis from eccentric calcification. Mid: Moderate calcified plaque. Short segment 60-70% stenosis proximally. Then shortly distally a 2 cm segment of 80-90% stenosis is noted from mostly calcification. Distal: No plaque. No stenosis. Dx: No plaque. No stenosis. PDA: No plaque. No stenosis. PLB: No plaque. No stenosis. Coronary CTA interpretation utilizes diagonal branches to segment the LAD (prox, mid, distal) rather than the septal branches (as used on conventional angiography) as the latter are too small to visualize on CTA consistently. RI: Not present. NON-CORONARY HEART: Moderate enlarged with moderate LVH. PERICARDIUM: Contour preserved. No effusion. No thickening. No calcifications. AV: Unable to visualize a number of cusps given suboptimal contrast opacification. No thickening. Mild annulus calcifications present. MV: No thickening. No calcifications. EXTRACARDIAC MAIN PA: Dilated at 4.1 cm No embolus centrally. AORTA: No atherosclerosis or aneurysm. Most of the non-coronary chest anatomy is excluded in the FOV. LUNGS: No consolidation. ABDOMEN: Unremarkable. LYMPHATIC: No hilar or mediastinal adenopathy. BONES: No suspicious osseous lesion. IMPRESSION: 1. Slightly compromised evaluation due to suboptimal contrast opacification. 2. On the RIGHT, focal 70-80% stenosis from calcification of the proximal RCA. 3. On the LEFT, 60-70% stenotic segment as well as a 2 cm segment of 80-90% stenosis of the mid LAD. 4. Agatston score: 862. Percentile (%): 73rd for age and gender in asymptomatic individuals. 5. Fairly dilated main pulmonary artery suggesting pulmonary arterial hypertension. Interpreted By: Giorgio Oro MD Preliminary Report By: Giorgio Oro MD Electronically Signed By: Giorgio Oro MD Dictated Date: 09/13/2020 2:20:24 PM Prelim Date: 09/13/2020 2:20:24 PM Sign Date: 09/13/2020 2:59:58 PM Ordering Provider:Larisa Overton [facility] CV ECHO COMPLETE CV ECHO COMPLETE [place] [address] Patient: BRANDON KULKARNI Phone#: : 1945 Age: 74 Gender: M Pt. Type: Out Account: [id number] Location: Ordering: LARISA OVERTON Exam Date: 08/13/2020/8:47 Family Phys: Charge Code: [id number] Physician: Ziebach Order #: [id number] DLP Dose#: PROCEDURE: ECHOCARDIOGRAM WITH DOPPLER AND COLOR FLOW HISTORY: Patient is 74 year old male with history of hypertension, atrial fibrillation INDICATIONS: Shortness of breath COMPARISON: None. TECHNIQUE: A 2-D ultrasound, color spectral Doppler and M-mode evaluation of the heart and great vessels. PATIENT MEASUREMENTS: Height (in.): 75 BSA: 2.4 Weight (lbs.): 250 BP: 154/96 [employer] Teacher: ROCÍO M MODE 2D MEASUREMENTS AND CALCULATIONS: LVIDd: 5.8 cm LVIDs: 2.9 cm IVSd: 1.2 cm LVPWd: 1.2 cm LVOT diam: 2.30 cm FS: 50 % Ao Root diam: 3.43 cm LA diam: 4.69 cm LA Volume Index: 38 mL/m2 LA A4 Area: 26.3 cm2 RA A4 Area: 26.1 cm2 RVDd: 4.41 cm TAPSE: 22 mm DOPPLER MEASUREMENTS AND CALCULATIONS MITRAL MV E MAX benito: 111.18 cm/s Lat Peak E' Benito 15 cm/sec Septal Peak E' BENITO 30 cm/sec E/E' lateral 7.5 Continued Report - Page 2 of 3 Patient: BRANDON KULKARNI Phone#: : 1945 Age: 74 Gender: M Pt. Type: Out Account: [id number] Location: Ordering: LARISA OVERTON Exam Date: 08/13/2020/8:47 Family Phys: Charge Code: [id number] Physician: Ziebach Order #: [id number] DLP Dose#: E/E' medial 8.8 AORTIC Ao V2 max: 196.92 cm/s Ao max P.61 mm[Hg] Ao V2 mean: 127.62 cm/s Ao mean P.54 mm[Hg] Ao V2 VTI: 33.31 cm FABBY (V Max): 2.6 cm2 FABBY (VTI): 2.7 cm2 LV V1 Max 125.12 cm/s LV V1 Max PG 6.43 mm[Hg] LV V1 Mean PG 3.82 mm[Hg] LV V1 mean 91.68 cm/s LV V1 VTI 21.67 cm PULMONIC PA V2 Max 122.12 cm/s PA Max PG 5.97 mm[Hg] TRICUSPID TR Max Benito 231.27 cm/s TR max PG 21.61 mm[Hg] RVSP 37 mm Hg 2D/M-MODE AND COLOR FLOW LEFT VENTRICLE: There is mild concentric left ventricular hypertrophy. Left ventricle is normal in size. Systolic ejection fraction is 60-65%. There are no regional wall motion abnormality seen. Cannot assess diastolic function due to E-A fusion WALL MOTION: 1 - Basal anterior: Normal. 7 - Mid anterior: Normal. 13 - Apical anterior: Normal. 2 - Basal anteroseptal: Normal. 8 - Mid anteroseptal: Normal. 14 - Apical septal: Normal. 3 - Basal inferoseptal: Normal. 9 - Mid inferoseptal: Normal. 15 - Apical inferior: Normal. 4 - Basal inferior: Normal. 10-Mid inferior: Normal. 16 - Apical lateral: Normal. 5 - Basal inferolateral: Normal. 11-Mid inferolateral: Normal. 6 - Basal anterolateral: Normal. 12-Mid anterolateral: Normal. RIGHT VENTRICLE: Right ventricle is mildly enlarged with normal systolic function LEFT ATRIUM: Left atrium is mildly enlarged RIGHT ATRIUM: Right atrium is moderately enlarged ATRIAL SEPTUM: There is no large interatrial shunt seen. PFO was not assessed MITRAL VALVE: Mitral valve appears normal in structure. There is trivial regurgitation and no stenosis seen TRICUSPID VALVE: Tricuspid valve appears normal in structure. Doppler shows trivial regurgitation Continued Report - Page 3 of 3 Patient: BRANDON KULKARNI Phone#: : 1945 Age: 74 Gender: M Pt. Type: Out Account: [id number] Location: Ordering: LARISA OVERTON Exam Date: 08/13/2020/8:47 Family Phys: Charge Code: [id number] Physician: Ziebach Order #: [id number] [facility] Dose#: AORTIC VALVE: Aortic valve is probably tricuspid with diffuse sclerosis. Maximum velocity across the valve is 2 meters per sec with mean gradient of 8 mm Hg. There is no significant stenosis or regurgitation seen PULMONIC VALVE: Pulmonic valve is inadequately visualized. Doppler shows no significant regurgitation or stenosis AORTIC ROOT: Aortic root is normal in size AORTIC ARCH: Inadequately visualized DESC THORACIC AORTA: Inadequately visualized IVC/SVC: IVC is dilated with less than 50% collapse of inspiration. Estimated right atrial pressure is 15 mm Hg. PERICARDIUM: There is no pericardial effusion is seen. CONCLUSION: 1. There is mild concentric left ventricular hypertrophy. Left ventricle is normal in size. Systolic ejection fraction is 60-65% with normal wall motion 2. Left atrium is mildly enlarged 3. Right atrium is moderately enlarged 4. There is trivial mitral valve regurgitation 5. Aortic valve probably trileaflet with diffuse sclerosis. There is no significant regurgitation or stenosis seen 6. Right ventricle is mildly enlarged with normal systolic function 7. Estimated right ventricular systolic pressure is 37 mm Hg 8. There are no prior studies for comparison. Dictated by: LARISA OVERTON MD on 08/14/2020 at 8:11 Approved by: LARISA MANUEL (more content not included)... Normal [facility] Vital Signs Date Time Vital Sign Value Performing Clinician Facility 12-05-2024 23:00-0400 Body temperature 99.5 [degF] [facility] 12-05-2024 23:00-0400 Diastolic blood pressure 67 mm[Hg] [facility] 12-05-2024 23:00-0400 Heart rate 55 /min [facility] 12-05-2024 23:00-0400 Respiratory rate 20 /min [facility] 12-05-2024 23:00-0400 SaO2% (BldA) [Mass fraction] 96 % [facility] 12-05-2024 23:00-0400 Systolic blood pressure 154 mm[Hg] [facility] 12-05-2024 19:30-0400 Body height 190.5 cm [facility] 12-05-2024 19:30-0400 Body mass index (BMI) [Ratio] 33.2 kg/m2 [facility] 12-05-2024 19:30-0400 Body weight 120.45 kg [facility] 12-04-2024 12:55-0400 Body height 190.5 cm [facility] 12-04-2024 12:55-0400 Body mass index (BMI) [Ratio] 33 kg/m2 [facility] 12-04-2024 12:55-0400 Body weight 119.74 kg [facility] 12-04-2024 12:55-0400 Diastolic blood pressure 72 mm[Hg] [facility] 12-04-2024 12:55-0400 Heart rate 72 /min [facility] 12-04-2024 12:55-0400 Respiratory rate 16 /min [facility] 12-04-2024 12:55-0400 Systolic blood pressure 129 mm[Hg] [facility] 09-03-2024 06:39-0400 Body mass index (BMI) [Ratio] 32.3 kg/m2 [facility] 09-03-2024 06:39-0400 Body weight 117.48 kg [facility] 09-03-2024 06:39-0400 Diastolic blood pressure 75 mm[Hg] [facility] 09-03-2024 06:39-0400 Heart rate 60 /min [facility] 09-03-2024 06:39-0400 Respiratory rate 18 /min [facility] 09-03-2024 06:39-0400 SaO2% (BldA) [Mass fraction] 99 % [facility] 09-03-2024 06:39-0400 Systolic blood pressure 138 mm[Hg] [facility] 07-29-2023 09:26-0400 Body height 190.5 cm [facility] 07-29-2023 09:26-0400 Body mass index (BMI) [Ratio] 31.4 kg/m2 [facility] 07-29-2023 09:26-0400 Body weight 113.85 kg [facility] 07-29-2023 09:26-0400 Diastolic blood pressure 77 mm[Hg] [facility] 07-29-2023 09:26-0400 Heart rate 60 /min [facility] 07-29-2023 09:26-0400 Respiratory rate 18 /min [facility] 07-29-2023 09:26-0400 SaO2% (BldA) [Mass fraction] 99 % [facility] 07-29-2023 09:26-0400 Systolic blood pressure 140 mm[Hg] [facility] 07-16-2023 11:31-0400 Heart rate 80 /min [facility] 07-16-2023 11:31-0400 Respiratory rate 19 /min [facility] 07-16-2023 11:31-0400 SaO2% (BldA) [Mass fraction] 93 % [facility] 07-16-2023 11:18-0400 Body temperature 97.9 [degF] [facility] 07-16-2023 11:18-0400 Diastolic blood pressure 98 mm[Hg] [facility] 07-16-2023 11:18-0400 Systolic blood pressure 155 mm[Hg] [facility] 07-16-2023 07:55-0400 Body height 190.5 cm [facility] 05-26-2023 16:03-0500 Body temperature 97.4 [degF] [facility] 05-26-2023 16:03-0500 Diastolic blood pressure 78 mm[Hg] [facility] 05-26-2023 16:03-0500 Heart rate 75 /min [facility] 05-26-2023 16:03-0500 Respiratory rate 18 /min [facility] 05-26-2023 16:03-0500 SaO2% (BldA) [Mass fraction] 98 % [facility] 05-26-2023 16:03-0500 Systolic blood pressure 152 mm[Hg] [facility] 05-26-2023 13:57-0500 Body mass index (BMI) [Ratio] 30.8 kg/m2 [facility] 05-26-2023 13:57-0500 Body weight 111.8 kg [facility] 05-26-2023 13:34-0500 Body height 190.5 cm [facility] 04-07-2023 08:57-0500 Body height 190.5 cm [facility] 04-07-2023 08:57-0500 Body mass index (BMI) [Ratio] 30.7 kg/m2 [facility] 04-07-2023 08:57-0500 Body weight 111.58 kg [facility] 04-07-2023 08:57-0500 Diastolic blood pressure 80 mm[Hg] [facility] 04-07-2023 08:57-0500 Heart rate 60 /min [facility] 04-07-2023 08:57-0500 Respiratory rate 18 /min [facility] 04-07-2023 08:57-0500 SaO2% (BldA) [Mass fraction] 100 % [facility] 04-07-2023 08:57-0500 Systolic blood pressure 142 mm[Hg] [facility] 03-27-2023 10:10-0500 Diastolic blood pressure 64 mm[Hg] [facility] 03-27-2023 10:10-0500 Heart rate 60 /min [facility] 03-27-2023 10:10-0500 Respiratory rate 15 /min [facility] 03-27-2023 10:10-0500 SaO2% (BldA) [Mass fraction] 95 % [facility] 03-27-2023 10:10-0500 Systolic blood pressure 125 mm[Hg] [facility] 03-27-2023 08:01-0500 Body height 190.5 cm [facility] 03-27-2023 08:01-0500 Body mass index (BMI) [Ratio] 29 kg/m2 [facility] 03-27-2023 08:01-0500 Body temperature 97.1 [degF] [facility] 03-27-2023 08:01-0500 Body weight 105.3 kg [facility] 03-15-2023 13:24-0500 Body temperature 97.9 [degF] [facility] 03-15-2023 13:24-0500 Diastolic blood pressure 59 mm[Hg] [facility] 03-15-2023 13:24-0500 Heart rate 60 /min [facility] 03-15-2023 13:24-0500 Respiratory rate 16 /min [facility] 03-15-2023 13:24-0500 SaO2% (BldA) [Mass fraction] 98 % [facility] 03-15-2023 13:24-0500 Systolic blood pressure 118 mm[Hg] [facility] 03-13-2023 12:01-0500 Body height 190.5 cm [facility] 03-13-2023 12:01-0500 Body weight 111.62 kg [facility] 03-13-2023 10:00-0500 Inhaled oxygen flow rate 100 L/min [facility] 03-12-2023 20:13-0500 Body mass index (BMI) [Ratio] 30.7 kg/m2 [facility] 02-18-2023 14:49-0500 Body temperature 38.6 [degF] [facility] 02-18-2023 14:49-0500 Diastolic blood pressure 63 mm[Hg] [facility] 02-18-2023 14:49-0500 Heart rate 61 /min [facility] 02-18-2023 14:49-0500 Respiratory rate 12 /min [facility] 02-18-2023 14:49-0500 SaO2% (BldA) [Mass fraction] 96 % [facility] 02-18-2023 14:49-0500 Systolic blood pressure 112 mm[Hg] [facility] 02-17-2023 13:44-0500 Diastolic blood pressure 73 mm[Hg] [facility] 02-17-2023 13:44-0500 Heart rate 63 /min [facility] 02-17-2023 13:44-0500 Respiratory rate 16 /min [facility] 02-17-2023 13:44-0500 SaO2% (BldA) [Mass fraction] 96 % [facility] 02-17-2023 13:44-0500 Systolic blood pressure 157 mm[Hg] [facility] 02-17-2023 13:42-0500 Body height 190.5 cm [facility] 02-17-2023 13:42-0500 Body mass index (BMI) [Ratio] 30.7 kg/m2 [facility] 02-17-2023 13:42-0500 Body weight 111.6 kg [facility] 02-17-2023 09:11-0500 Body height 190.5 cm [facility] 02-17-2023 09:11-0500 Body mass index (BMI) [Ratio] 31.1 kg/m2 [facility] 02-17-2023 09:11-0500 Body temperature 98.1 [degF] [facility] 02-17-2023 09:11-0500 Body weight 113.1 kg [facility] 02-14-2023 08:41-0500 Body height 190.5 cm [facility] 1 Work Phone: [facility] 02-14-2023 08:41-0500 Body temperature 98.6 [degF] [facility] 1 Work Phone: [facility] 02-14-2023 08:41-0500 Body weight 115.67 kg [facility] 1 Work Phone: [facility] 02-14-2023 08:41-0500 Diastolic blood pressure 64 mm[Hg] [facility] 1 Work Phone: [facility] 02-14-2023 08:41-0500 Heart rate 60 /min [facility] 1 Work Phone: [facility] 02-14-2023 08:41-0500 Respiratory rate 14 /min [facility] 1 Work Phone: [facility] 02-14-2023 08:41-0500 SaO2% (BldA) [Mass fraction] 99 % [facility] 1 Work Phone: [facility] 02-14-2023 08:41-0500 Systolic blood pressure 122 mm[Hg] [facility] 1 Work Phone: [facility] 02-09-2023 09:23-0500 Diastolic blood pressure 78 mm[Hg] [facility] 02-09-2023 09:23-0500 Heart rate 60 /min [facility] 02-09-2023 09:23-0500 Respiratory rate 16 /min [facility] 02-09-2023 09:23-0500 SaO2% (BldA) [Mass fraction] 98 % [facility] 02-09-2023 09:23-0500 Systolic blood pressure 132 mm[Hg] [facility] 02-09-2023 07:25-0500 Body temperature 99.1 [degF] [facility] 02-09-2023 07:21-0500 Body mass index (BMI) [Ratio] 31.8 kg/m2 [facility] 02-09-2023 07:21-0500 Body weight 116.02 kg [facility] 12-22-2022 08:46-0400 Body height 190.5 cm Chelita Dorr PA-C Work Phone: [facility] 12-22-2022 08:46-0400 Body temperature 97.2 [degF] Chelita Tee PA-C Work Phone: [facility] 12-22-2022 08:46-0400 Body weight 115.3 kg Chelita Dorr PA-C Work Phone: [facility] 12-22-2022 08:46-0400 Diastolic blood pressure 74 mm[Hg] Chelita Tee PA-C Work Phone: [facility] 12-22-2022 08:46-0400 Heart rate 62 /min Chelita Dorr PA-C Work Phone: [facility] 12-22-2022 08:46-0400 SaO2% (BldA) [Mass fraction] 99 % Chelita Dorr PA-C Work Phone: [facility] 12-22-2022 08:46-0400 Systolic blood pressure 124 mm[Hg] Chelita Dorr PA-C Work Phone: [facility] 08-31-2022 10:43-0400 Body height 190.5 cm [facility] 05-30-2023 10:43-0400 Body mass index (BMI) [Ratio] 30.9 kg/m2 [facility] 08-31-2022 10:43-0400 Body weight 112.03 kg [facility] 08-31-2022 10:43-0400 Diastolic blood pressure 58 mm[Hg] [facility] 08-31-2022 10:43-0400 Heart rate 60 /min [facility] 08-31-2022 10:43-0400 Respiratory rate 18 /min [facility] 08-31-2022 10:43-0400 SaO2% (BldA) [Mass fraction] 95 % [facility] 08-31-2022 10:43-0400 Systolic blood pressure 112 mm[Hg] [facility] 02-23-2022 08:55-0500 Body height 190.5 cm [facility] 02-23-2022 08:55-0500 Body mass index (BMI) [Ratio] 30.7 kg/m2 [facility] 02-23-2022 08:55-0500 Body weight 111.58 kg [facility] 02-06-2022 14:00-0400 Body temperature 97.9 [degF] [facility] 02-06-2022 14:00-0400 Diastolic blood pressure 86 mm[Hg] [facility] 02-06-2022 14:00-0400 Respiratory rate 12 /min [facility] 02-06-2022 14:00-0400 Systolic blood pressure 120 mm[Hg] [facility] 02-06-2022 08:43-0400 Heart rate 60 /min [facility] 02-06-2022 08:40-0400 Body temperature 98 [degF] [facility] Work Phone: 02-06-2022 08:40-0400 Diastolic blood pressure 71 mm[Hg] [facility] Work Phone: 02-06-2022 08:40-0400 Respiratory rate 16 /min [facility] Work Phone: 02-06-2022 08:40-0400 SaO2% (BldA) [Mass fraction] 99 % [facility] 02-06-2022 08:40-0400 Systolic blood pressure 115 mm[Hg] [facility] Work Phone: 02-06-2022 06:00-0400 Body weight 111.1 kg [facility] 02-04-2022 13:15-0400 Body height 190.5 cm [facility] Work Phone: 02-04-2022 13:15-0400 Body mass index (BMI) [Ratio] 29.9 kg/m2 [facility] 02-04-2022 13:00-0400 Diastolic blood pressure 65 mm[Hg] [facility] Work Phone: 02-04-2022 13:00-0400 Heart rate 60 /min [facility] Work Phone: 02-04-2022 13:00-0400 Respiratory rate 14 /min [facility] Work Phone: 02-04-2022 13:00-0400 SaO2% (BldA) [Mass fraction] 99 % [facility] Work Phone: 02-04-2022 13:00-0400 Systolic blood pressure 122 mm[Hg] [facility] Work Phone: 02-04-2022 12:54-0400 Body temperature 98 [degF] [facility] Work Phone: 02-04-2022 10:21-0400 Body height 185.42 cm [facility] Work Phone: 02-04-2022 10:21-0400 Body mass index (BMI) [Ratio] 32.3 kg/m2 [facility] Work Phone: 02-04-2022 10:21-0400 Body weight 111.3 kg [facility] Work Phone: 11-27-2020 05:36-0400 Diastolic blood pressure 72 mm[Hg] Cherrie David MD Work Phone: [facility] Work Phone: 11-27-2020 05:36-0400 Heart rate 50 /min Cherrie David MD Work Phone: [facility] Work Phone: 11-27-2020 05:36-0400 Respiratory rate 17 /min Cherrie David MD Work Phone: [facility] Work Phone: 11-27-2020 05:36-0400 SaO2% (BldA) [Mass fraction] 98 % Cherrie David MD Work Phone: [facility] Work Phone: 11-27-2020 05:36-0400 Systolic blood pressure 148 mm[Hg] [facility] Work Phone: 11-26-2020 20:41-0400 Body temperature 98.2 [degF] Cherrie David MD Work Phone: [facility] Work Phone: 11-26-2020 20:41-0400 Body height 190.5 cm Cherrie David MD Work Phone: [facility] Work Phone: 11-26-2020 20:41-0400 Body mass index (BMI) [Ratio] 30.62 kg/m2 Cherrie David MD Work Phone: [facility] Work Phone: 11-26-2020 20:41-0400 Body weight 111.13 kg Cherrie David MD [facility]: [facility] Work Phone: 06-11-2019 09:58-0400 BP Diastolic 61 mm[Hg] Lele Esparza [facility] 06-11-2019 09:58-0400 BP Systolic 132 mm[Hg] [facility] 06-11-2019 09:58-0400 Pulse (Heart Rate) 60 /min [facility] 06-11-2019 09:58-0400 Pulse Oximetry 98 % [facility] 06-11-2019 09:58-0400 Respiratory Rate 12 /min [facility] 06-11-2019 09:38-0400 Body Temperature 98.2 [degF] [facility] 06-11-2019 08:33-0400 BMI (Body Mass Index) 32.25 kg/m2 [facility] 06-11-2019 08:33-0400 Body weight 117.03 kg [facility] 06-11-2019 08:33-0400 Height 190.5 cm [facility] 05-10-2019 15:06-0500 BMI (Body Mass Index) 33.75 kg/m2 [facility] 05-10-2019 15:06-0500 Body weight 122.47 kg [facility] 05-10-2019 15:06-0500 BP Diastolic 77 mm[Hg] [facility] 05-10-2019 15:06-0500 BP Systolic 179 mm[Hg] [facility] 05-10-2019 15:06-0500 Height 190.5 cm [facility] 05-10-2019 15:06-0500 Pulse (Heart Rate) 70 /min [facility] 05-10-2019 15:06-0500 Pulse Oximetry 96 % [facility] Encounters Encounter Date Encounter Type Care Provider Facility Start: 12-05-2024 Evaluation and management of inpatient Dr. Radha Mosley MD -Progressive Care Unit Work Phone: Start: 12-04-2024 End: 12-04-2024 Patient encounter procedure Jesse ROMERO -[facility] Work Phone: Start: 12-04-2024 End: 12-04-2024 ambulatory [facility] Start: 09-12-2024 End: 09-12-2024 ambulatory [facility] Work Phone: Start: 09-12-2024 End: 09-12-[address] Emanuel Richardson MD -[facility] Work Phone: Start: 09-03-2024 End: 09-03-2024 ambulatory [facility] Work Phone: Start: 09-03-2024 End: 09-03-2024 Patient encounter procedure Jesse Grace CLIENT DEVELOPMENT DIRECTOR-C -Laboratory Work Phone: Start: 09-03-2024 End: 09-03-2024 Patient encounter procedure Jesse Grace NP-C -[facility] Work Phone: Start: 09-03-2024 End: 09-03-2024 [facility] Work Phone: Start: 09-03-2024 End: 09-03-2024 ambulatory [facility] Facility:[facility] Start: 06-21-2024 End: 06-21-[address] [facility] Facility:[facility] Start: 06-21-2024 End: 06-21-[address] Emanuel Richardson MD -[facility] Work Phone: Start: 06-07-2024 End: 06-07-[address] [facility] Facility:[facility] Start: 06-07-2024 End: 06-07-[address] Emanuel Richardson MD -[facility] Work Phone: Start: 05-08-2024 ambulatory NOHEMI Crooks [facility] Ambulatory Start: 03-14-2024 End: 03-14-2024 [facility] Start: 02-01-2024 End: 02-01-2024 Telephone encounter Rad South MD Work Phone: Hematology/Oncology Comment on above: Results Start: 01-25-2024 End: 01-25-[address] [facility] Start: 12-14-2023 End: 12-14-2023 ambulatory Emanuel Richardson Facility:[facility] Start: 11-28-2023 End: 12-12-2023 Telephone encounter Rad South MD Work Phone: Hematology/Oncology Comment on above: Results Start: 11-25-2023 End: 11-25-2023 ambulatory SOLO MADRIGAL Facility:[facility] Start: 10-26-2023 End: 10-26-2023 Transcribe Orders Ji Caldera Work Phone: [facility] Diagnostic Radiology Comment on above: Dyspnea, unspecified type Start: 10-18-2023 Telephone encounter Rad mcgowan MD Work Phone: Hematology/Oncology Comment on above: Appointment Start: 08-01-2023 End: 08-01-2023 ambulatory [facility] Work Phone: Start: 08-01-2023 End: 08-01-2023 Patient encounter procedure [facility] [place] Work Phone: Start: 07-29-2023 End: 07-29-2023 Patient encounter procedure [facility] Work Phone: Start: 07-16-2023 Non-patient / Non-visit [facility] Start: 07-16-2023 End: 07-16-2023 Emergency department patient visit [facility]-Emergency Department Work Phone: Start: 06-28-2023 End: 06-28-2023 ambulatory [facility] Work Phone: Start: 06-28-2023 End: 06-28-2023 Patient encounter procedure [facility]-Cat Scan, [facility] Work Phone: Start: 06-15-2023 End: 06-15-2023 Patient encounter procedure [facility] Work Phone: Start: 05-26-2023 End: 05-26-2023 Emergency department patient visit [facility]-Emergency Department Work Phone: Start: 05-10-2023 End: 05-10-2023 Patient encounter procedure [facility] Work Phone: Start: 04-28-2023 End: 04-28-2023 ambulatory [facility] Work Phone: Start: 04-28-2023 End: 04-28-2023 Patient encounter procedure [facility]-[place] [place] Work Phone: Start: 04-07-2023 End: 04-07-2023 Patient encounter procedure [facility] Work Phone: Start: 03-27-2023 End: 03-27-2023 Emergency department patient visit [facility]-Emergency Department Work Phone: Start: 03-16-2023 End: 03-16-2023 Patient encounter procedure [facility] Work Phone: Start: 03-15-2023 Non-patient / Non-visit [facility] Work Phone: Start: 03-15-2023 Non-patient / Non-visit [facility] Start: 03-14-2023 Non-patient / Non-visit [facility] Work Phone: Start: 03-14-2023 Non-patient / Non-visit [facility] Start: 03-13-2023 Non-patient / Non-visit [facility] Work Phone: Start: 03-13-2023 Non-patient / Non-visit [facility] Start: 03-13-2023 End: 03-13-2023 Non-patient / Non-visit [facility] Work Phone: Start: 03-12-2023 Non-patient / Non-visit [facility] Start: 03-12-2023 Non-patient / Non-visit [facility] Work Phone: Start: 03-12-2023 End: 03-15-2023 Evaluation and management of inpatient [facility]-Medical Surgical 3 Work Phone: Start: 03-04-2023 Telephone encounter Samuel Contreras MD Work Phone: [place] Provider Adult Comment on above: Results Start: 03-02-2023 ambulatory NOHEMIEMELY TEJEDA cility:[facility] Start: 02-22-2023 Non-patient / Non-visit [facility] Start: 02-18-2023 Non-patient / Non-visit [facility] Work Phone: Start: 02-18-2023 Non-patient / Non-visit [facility] Start: 02-17-2023 End: 02-18-2023 Evaluation and management of inpatient [facility]-Progressive Care Unit Work Phone: Start: 02-17-2023 Non-patient / Non-visit [facility] Start: 02-17-2023 Evaluation and management of inpatient [facility]-Progressive Care Unit Work Phone: Start: 02-17-2023 observation encounter [facility] Work Phone: Start: 02-14-2023 Telephone encounter Lakesha Kent APRN.CNP Work Phone: Pre Anesthesia Start: 02-14-2023 End: 02-14-2023 [facility] Work Phone: [facility] Start: 02-14-2023 End: 02-14-2023 ambulatory [facility] [place] [facility] Work Phone: Pre Anesthesia Comment on above: Pre-operative examin ation (Primary Dx); Coronary artery disease involving upper [place] coronary artery of upper [place] heart without angina pectoris; Essential hypertension; Gastroesophageal reflux disease without esophagitis; Hypercholesterolemia; Chronic a-fib (HCC); History of pacemaker; Iron deficiency anemia due to chronic blood loss; Chronic diastolic heart failure (HCC); Rheumatoid arthritis, involving unspecified site, unspecified whether rheumatoid factor present (HCC); Hypokalemia; Other spondylosis, lumbar region; Class 1 obesity due to excess calories with serious comorbidity and body mass index (BMI) of 31.0 to 31.9 in adult Start: 02-14-2023 End: 02-14-2023 Preprocedural examination done [place] [id number] Work Phone: [facility] Work Phone: Start: 02-09-2023 End: 02-09-2023 Emergency department patient visit [facility]-Emergency Department Work Phone: Start: 02-07-2023 Telephone encounter Lakesha Kent APRN.CNP Work Phone: Pre Anesthesia Comment on above: Appointment (NO SHOW ) Start: 12-22-2022 End: 12-22-2022 Patient encounter procedure Chelita Oliveira PA-C Work Phone: General Surgery Comment on above: History of colonic p olyps (Primary Dx); Pacemaker; Family history of colon cancer; On continuous oral anticoagulation; Tubulovillous adenoma Start: 12-15-2022 End: 12-15-2022 Patient encounter procedure [facility] Work Phone: Start: 11-25-2022 End: 11-25-2022 ambulatory [facility] Work Phone: Start: 11-25-2022 End: 11-25-2022 [facility] Start: 08-31-2022 End: 08-31-2022 ambulatory [facility] Work Phone: Start: 08-31-2022 End: 08-31-2022 Patient encounter procedure [facility]-Laboratory Start: 08-31-2022 End: 08-31-2022 Patient encounter procedure [facility] Start: 08-23-2022 End: 08-23-2022 ambulatory [facility] Work Phone: Start: 08-23-2022 End: 08-23-2022 Patient encounter procedure [facility] Start: 06-30-2022 End: 06-30-2022 Patient encounter procedure [facility] Start: 05-18-2022 End: 05-18-2022 ambulatory [facility] Work Phone: Start: 05-18-2022 End: 05-18-2022 Patient encounter procedure [facility] Start: 03-24-2022 End: 03-24-2022 Patient encounter procedure [facility] Start: 02-24-2022 End: 02-24-2022 Patient encounter procedure [facility] Start: 02-23-2022 End: 02-23-2022 Patient encounter procedure [facility] Start: 02-06-2022 Non-patient / Non-visit [facility] Start: 02-05-2022 Non-patient / Non-visit [facility] Start: 02-05-2022 Non-patient / Non-visit [facility] Start: 02-04-2022 Non-patient / Non-visit [facility] Start: 02-04-2022 Non-patient / Non-visit [facility] Start: 02-04-2022 End: 02-06-2022 Evaluation and management of inpatient [facility] Start: 02-04-2022 observation encounter [facility] Work Phone: Start: 11-10-2021 End: 11-10-2021 Patient encounter procedure [facility] Start: 11-06-2021 End: 11-06-2021 Transcribe Orders Maria Fernanda Evans BARREL SCRAPER-MEDICAL LIAISON Work Phone: [facility] Diagnostic Radiology Start: 09-01-2021 End: 09-01-2021 Patient encounter procedure [facility] Start: 06-17-2021 End: 06-17-2021 ambulatory [facility] Start: 06-10-2021 End: 06-10-2021 Patient encounter procedure [facility] Start: 04-21-2021 End: 04-21-2021 ambulatory JUANA KULKARNI [facility] Start: 03-16-2021 ambulatory NICKY ORO [facility] Start: 03-13-2021 End: 03-13-2021 ambulatory NICKY ORO [facility] Start: 03-08-2021 End: 03-08-2021 Emergency department patient visit DIANN [facility] Start: 01-26-2021 End: 01-26-2021 ambulatory LARISA ORO [facility] Start: 11-26-2020 End: 11-27-2020 Emergency department patient visit Cherrie David MD Work Phone: [facility] Emergency Dept Comment on above: Pain of hand, unspec ified laterality (Primary Dx) Start: 11-26-2020 End: 11-26-2020 Emergency department patient visit DIANN M [facility] Start: 11-21-2020 End: 11-21-2020 Emergency department patient visit CLAUDINE ORO [facility] Start: 09-27-2020 End: 09-28-2020 Emergency department patient visit DOCTOR ON [facility] Start: 09-17-2020 End: 09-17-2020 ambulatory [facility] ON [facility] Start: 08-13-2020 End: 08-13-2020 ambulatory DOCTOR ON [facility] Start: 07-10-2020 End: 07-10-2020 ambulatory LARISA Forte [facility] Start: 05-10-2020 End: 05-10-2020 Orders Only Barbara Patel Work Phone: [facility] Start: 06-27-2019 End: 06-27-2019 Office outpatient visit 10 minutes Lele Esparza Work Phone: [facility] Gastroenterology Comment on above: Adenomatous polyp of descending colon (Primary Dx) Start: 06-11-2019 End: 06-11-2019 Patient encounter procedure LELE KUMAR ISAIAS [facility] Start: 06-11-2019 End: 06-11-2019 Subsequent hospital visit by physician Lele Esparza Work Phone: [facility] Comment on above: Iron deficiency anem ia due to chronic blood loss; Family history of colon cancer requiring screening colonoscopy; Iron deficiency anemia due to chronic blood loss; Family history of colon cancer requiring screening colonoscopy Start: 05-10-2019 End: 05-10-2019 Office outpatient new 20 minutes Lele Esparza Work Phone: [facility] Gastroenterology Comment on above: Family history of co lavon cancer requiring screening colonoscopy (Primary Dx); Iron deficiency anemia due to chronic blood loss Start: 12-03-2015 EKG myocardial ischemia Chelita Oliveira PA-C Work Phone: [facility] Work Phone: Procedures Date Procedure Procedure Detail Performing Clinician Start: 12-05-2024 X-ray of chest, PA a nd lateral views [facility] Start: 10-26-2023 Radiologic exam ches t 2 views Ji Caldera Work Phone: Start: 07-16-2023 SARS-CoV-2, Influenz a & RSV (PCR) [facility] Start: 07-16-2023 Plain chest X-ray [facility] Start: 06-28-2023 CT of lumbar spine [facility] Start: 05-26-[facility]23 [facility] Start: 05-26-2023 SARS-CoV-2, Influenz a & RSV (PCR) [facility] Start: 03-13-2023 [facility] Start: 03-02-2023 Colonoscopy Samuel schultz MD Work Phone: Start: 02-17-2023 CT of thorax, abdome n and pelvis with contrast [facility] Start: 02-17-2023 Plain chest X-ray [facility]ital Start: 02-09-2023 Viral antigen assay [facility] Start: 02-09-2023 Plain chest X-ray [facility] Start: 02-04-2022 Plain chest X-ray Start: 06-10-2021 Plain x-ray of pelvi s and lower extremity Start: 03-13-2021 Urinalysis DIANN BOOGIE Comment on above: Result Comment: URIN ALYSIS Performed By: #### [id number] #### [facility],[address] [place] [address] Start: 11-27-2020 Radex hand minimum 3 views Chyna Hernandez MD Work Phone: Start: 11-27-2020 XR ELBOW STANDARD BILATERAL Chyan Hernandez MD Work Phone: Start: 11-27-2020 Basic metabolic pane l calcium total Dania Brown BARREL SCRAPER - MEDICAL LIAISON Work Phone: Start: 11-27-2020 C-reactive protein Dania Brown BARREL SCRAPER - MEDICAL LIAISON Work Phone: Start: 09-22-2020 History of placement of stent for coronary artery disease History of coronary artery stent placement Jesse Grace CLIENT DEVELOPMENT DIRECTOR-C Comment on above: PCI-ALDAIR-Mid LAD w/ 4 .0 x 28 mm and 3.5 x 38 mm Synergy XD Stent 09/22/2020 Start: 06-11-2019 End: 06-11-2019 Colonoscopy Lele brown Work Phone: Start: 12-10-2015 Colonoscopy Chelita benites PA-C Work Phone: Plan of Treatment Date Care Activity Detail Author Start: 11-26-2030 Urine microalbumin profile DTa P,Tdap,Td Vaccine (3 - Td or Tdap) [facility] Start: 06-10-2029 Screening for malign ant neoplasm of colon [facility] Start: 12-05-2024 Legionella pneumophi la Ag [Presence] in Urine [facility] Start: 12-05-2024 Respiratory pathogen s DNA and RNA panel - Respiratory specimen by ASHLY with probe detection [facility] Start: 12-05-2024 Sars-cov-2 [facility] Start: 12-05-2024 Streptococcus pneumo niae antigen assay [facility] Start: 12-05-2024 Hospital admission, emergency, from emergency room, medical nature [facility] Start: 12-05-2024 Verification routine [facility] Start: 12-05-2024 Admission procedure [facility] Start: 12-05-2024 [facility] Start: 12-05-2024 Bacteria identified in Blood by Culture Blood Culture [facility] Start: 03-02-2024 Colonoscopy Colonoscopy [facility] Start: 03-02-2024 Colorectal Cancer Screening Colorectal Cancer Screening [facility] Start: 03-02-2024 Screening for malign ant neoplasm of colon [facility] Start: 02-15-2024 BP Controlled (<130/80) BP Con trolled (<130/80) [facility] Start: 01-03-2024 Influenza vaccination Influenza Vacc ine (#1) [facility] Start: 12-23-2023 BP Controlled (<130/80) BP Con trolled (<130/80) [facility] Start: 12-04-2023 Influenza vaccination Influenza Vacc ine (#1) [facility] Start: 11-28-2023 Diabetes Screening Diabetes Screenin g [facility] Start: 11-25-2023 End: 11-25-2023 ambulatory [facility] Comment on above: CBC/EXTRA TUBES CLIENT DEVELOPMENT DIRECTOR/ DX: CHRONIC ANEM IA, NORMAL MCV/REFERRING: SOLO MADRIGAL* Start: 07-16-2023 [facility] Start: 05-26-2023 [facility] Start: 04-04-2023 Advance Directive Discussion Advance Directive Discussion [facility] Start: 04-04-2023 Behavioral Health Screening Behavioral Health Screening [facility] Start: 03-27-2023 [facility] Start: 03-15-2023 Patient discharge [facility] Start: 03-14-2023 Administration of bl ood product [facility] Start: 03-14-2023 Transfusion of red b lood cells [facility] Start: 03-13-2023 Administration of bl ood product [facility] Start: 03-12-2023 Following clinical p athway protocol [facility] Start: 03-12-2023 Following clinical p athway protocol [facility] Start: 03-12-2023 Transfusion of blood product [facility] Start: 03-12-2023 Application of intermittent pneumatic compression device [facility] Start: 03-12-2023 Assessment of risk o f venous thromboembolism [facility] Start: 03-12-2023 Insertion of cathete r into peripheral vein [facility] Start: 03-12-2023 Providing care accor ding to standard [facility] Start: 03-12-2023 Referral to general surgeon [facility] Start: 03-12-2023 [facility] Start: 03-12-2023 Administration of bl ood product [facility] Start: 03-12-2023 End: 03-12-2023 Hospital admission, emergency, from emergency room, [facility] Start: 03-12-2023 End: 03-13-2023 Transfusion of red blood cells [facility] Start: 03-12-2023 Admission procedure [facility] Start: 03-12-2023 Hospital admission, emergency, from emergency room, [facility] Start: 02-23-2023 Blood chemistry [facility] Start: 02-22-2023 Patient referral [facility] Work Phone: Start: 02-22-2023 Blood chemistry [facility] Start: 02-21-2023 Blood chemistry [facility] Start: 02-20-2023 Blood chemistry [facility] Start: 02-19-2023 Blood chemistry [facility] Start: 02-18-2023 Patient discharge [facility] Start: 02-18-2023 Blood chemistry [facility] Start: 02-18-2023 Complete blood count [facility] Start: 02-17-2023 Admission procedure [facility] Start: 02-17-2023 Following clinical p athway protocol [facility] Start: 02-17-2023 Ambulation without limitation [facility] Start: 02-17-2023 Assessment of risk o f venous thromboembolism [facility] Start: 02-17-2023 Insertion of cathete r into peripheral vein [facility] Start: 02-17-2023 Oxygen therapy [facility] Start: 02-17-2023 Providing care accor ding to standard [facility] Start: 02-17-2023 Referral to milling machine tender [facility] Start: 02-17-2023 [facility] Start: 02-17-2023 End: 02-17-2023 Verification routine [facility] Start: 02-17-2023 Admission procedure [facility] Start: 02-17-2023 Hospital admission, emergency, from emergency room, medical nature [facility] Start: 02-17-2023 [facility] Start: 02-17-2023 [facility] Start: 02-17-2023 [facility] Start: 12-03-2022 COVID-19 Vaccine ( season) COVID-19 Vaccine ( season) [facility] Start: 12-03-2022 Influenza vaccination Influenza Vacc ine (#1) [facility] Start: 11-14-2022 RSV Vaccine (1 - 1-d ose 75+ series) RSV Vaccine (1 - 1-dose 75+ series) [facility] Start: 04-04-2022 Advance Directive Discussion Advance Directive Discussion [facility] Start: 04-04-2022 Depression Assessment Depression Ass essment [facility] Start: 02-06-2022 Patient discharge [facility] Start: 02-05-2022 Patient referral [facility] Work Phone: Start: 02-05-2022 Inhalation therapy procedure [facility] Start: 02-04-2022 Catheterization of vein [facility] Start: 02-04-2022 Medication not administered [facility] Start: 02-04-2022 Preoperative care [facility] Start: 02-04-2022 [facility] Start: 02-04-2022 Following clinical p athway protocol [facility] Start: 02-04-2022 Assessment of risk o f venous thromboembolism [facility] Start: 02-04-2022 Insertion of cathete r into peripheral vein [facility] Start: 02-04-2022 Providing care accor ding to standard [facility] Start: 02-04-2022 Provision of activit y privileges [facility] Start: 02-04-2022 [facility] Start: 02-04-2022 Referral to milling machine tender [facility] Start: 02-04-2022 Verification routine [facility] Work Phone: Start: 02-04-2022 End: 02-04-2022 Admission procedure [facility] Start: 01-02-2022 Influenza vaccination Influenza Vacc ine (#1) [facility] Start: 12-09-2020 Colonoscopy Colonoscopy [facility] Start: 12-09-2020 Colorectal Cancer Screening Colorectal Cancer Screening [facility] Start: 12-03-2020 Influenza vaccination Flu vaccine (# 1) [facility] Work Phone: Start: 08-09-2020 COVID-19 Vaccine (2 - Booster for Michael series) COVID-19 Vaccine (2 - Booster for Michael series) [facility] Start: 07-12-2020 Covid-19 Vaccine (2 - Michael risk series) Covid-19 Vaccine (2 - Michael risk series) [facility] Start: 12-04-2019 Influenza vaccinatio n given Sequential Influenza Vaccine (#1) [facility] Start: 06-11-2019 Hospital Encounter 06/11/2019 Hospital Encounter Lele Esparza MD [address] [place] [address] [phone] Iron deficiency anemia due to chronic blood loss; Family history of colon cancer requiring screening colonoscopy [facility] Comment on above: Iron deficiency anem ia due to chronic blood loss; Family history of colon cancer requiring screening colonoscopy Start: 12-03-2018 Influenza vaccinatio n given SEQUENTIAL INFLUENZA VACCINE (#1) [facility] Start: 11-27-2018 Diabetes Screening Diabetes Screenin g [facility] Start: 11-14-2012 Pneumococcal vaccination [facility] Start: 2007 Hepatitis B (HBV) Va ccine (optional start 60+ years) Hepatitis B (HBV) Vaccine (optional start 60+ years) [facility] Start: 2007 RSV Vaccine (1 - 1-d ose 60+ series) RSV Vaccine (1 - 1-dose 60+ series) [facility] Start: 2007 RSV vaccine (optiona l 60+ years) RSV vaccine (optional 60+ years) [facility] Start: 11-14-1997 Administration of he rpes zoster vaccine Zoster Vaccines (1 of 2) [facility] Start: 11-14-1997 Measurement of occul t blood in single stool specimen FIT [facility] Start: 11-14-1997 Screening for malign ant neoplasm of colon [facility] Start: 11-14-1997 Shingles (RZV) Vacci ne (1 of 2) Shingles (RZV) Vaccine (1 of 2) [facility] Start: 11-14-1992 Cologuard (FIT-DNA) Cologuard (FIT-D NA) [facility] Start: 11-14-[address] COLONOGRAPHY [facility] Start: 11-14-1992 Fecal Occult Blood Fecal Occult Bloo d [facility] Start: 11-14-1992 Screening for malign ant neoplasm of colon [facility] Start: 11-14-1992 SIGMOIDOSCOPY SIGMOIDOSCOPY [facility] Start: 11-14-1982 Lipid 1996 panel - S paul or Plasma Lipid Screening [facility] Start: 11-14-1982 Lipid panel [facility] Start: 11-14-1966 Hepatitis A (HAV) Va ccine (optional start 19+ years) Hepatitis A (HAV) Vaccine (optional start 19+ years) [facility] Start: 11-14-1966 Shingrix Vaccine (1 of 2) Pepper grix Vaccine (1 of 2) [facility] Start: 11-14-1966 Tetanus vaccination Tetanus (T d or Tdap) Booster [facility] Start: 11-14-1966 Urine microalbumin profile DTa P,Tdap,Td Vaccine (1 - Tdap) [facility] Start: 11-14-1965 Annual PCP Team Claims Representative rocco Disease Visit Annual PCP Team Chronic Disease Visit [facility] Start: 11-14-1965 Anxiety Screening Anxiety Screening [facility] Start: 11-14-1965 Depression Screening Depression Scre ening [facility] Start: 11-14-1965 Hepatitis B surface antibody level LDL Cholesterol [facility] Start: 11-14-1965 Hepatitis C antibody , confirmatory test Hepatitis C Screening [facility] Start: 11-14-1965 [facility] Start: 11-14-1965 Hepatitis C Screening Hepatitis C Sc ion [facility] Start: 11-14-1965 Tetanus + diphtheria + acellular pertussis vaccine (product) Tdap Booster [facility] Start: 1963 COVID-19 Vaccine (1 of 2) COVI D-19 Vaccine (1 of 2) [facility] Start: 1959 Adolescent depressio n screening assessment Depression Screening (PHQ9) [facility] Start: 1959 COVID-19 Vaccine (1) COVID-19 Vaccin e (1) [facility] Work Phone: Start: 11-14-1953 Pneumococcal Vaccine : 65+ (1 - PCV) Pneumococcal Vaccine: 65+ (1 - PCV) [facility] Start: 11-14-1950 History and physical examination, annual for health maintenance Wellness Visit [facility] Start: 1945 Fall risk assessment Falls Risk Asse ssment [facility] Start: 1945 Hepatitis C antibody , confirmatory test HEPATITIS C SCREENING [facility] Start: 1945 Prostate specific an tigen measurement PSA Level [facility] Start: 1945 Screening for malign ant neoplasm of colon [facility] Start: 1947 [facility] Alanine aminotransfe rase [Enzymatic activity/volume] in Serum or Plasma [facility] Albumin [Mass/volume ] in Serum or Plasma [facility] Alkaline phosphatase [Enzymatic activity/volume] in Serum or Plasma [facility] Anion gap in Serum o r Plasma [facility] Anion gap measurement [facility] Basic metabolic 2008 panel with ionized calcium - Serum or Plasma [facility] Bilirubin, total measurement [facility] BUN/Creatinine ratio [facility] BUN/Creatinine ratio [facility] Calcium [Mass/volume ] in Serum or Plasma [facility] Calcium [Mass/volume ] in Serum or Plasma [facility] Carbon dioxide, tota l [Moles/volume] in Central venous blood [facility] Carbon dioxide, tota l [Moles/volume] in Serum or Plasma [facility] CBC W Auto Different ial panel - Blood [facility] Chloride [Moles/volu me] in Serum or Plasma [facility] Creatinine [Mass/vol ume] in Serum or Plasma [facility] Creatinine [Moles/vo lume] in Serum or Plasma [facility] Glucose [Mass/volume ] in Serum or Plasma [facility] Glucose [Mass/volume ] in Serum or Plasma [facility] Hematocrit [Volume Fraction] of Blood [facility] Hemoglobin [Mass/vol ume] in Blood [facility] Hemoglobin A1c/Hemoglobin.total in Blood [facility] Leukocytes [#/volume ] in Blood [facility] Magnesium measurement [facility] Mean corpuscular hemoglobin concentration determination [facility] Mean corpuscular hemoglobin determination [facility] Measurement of renal function [facility] Measurement of renal function [facility] Natriuretic peptide. B prohormone N-Terminal [Mass/volume] in Serum or Plasma [facility] Patient Education [facility] Work Phone: Patient referral [facility] Work Phone: Platelets [#/volume] in Blood [facility] Potassium [Moles/vol ume] in Serum or Plasma [facility] Potassium measurement [facility] Procedure on tissue specimen [facility] Comment on above: Release Upon Orderin g for 1 Occurrences starting 06/11/2019, 1 completed Red blood cell count [facility] Red cell distributio n width determination [facility] Serum chloride measurement [facility] Sodium [Moles/volume ] in Serum or Plasma [facility] Sodium measurement [facility] Total protein measurement [facility] Urea nitrogen [Mass/volume] in Serum or Plasma [facility] Urea nitrogen [Mass/volume] in Serum or Plasma [facility] Immunizations Immunization Date Immunization Notes Care Provider Marsha keith 02-11-2022 influenza virus vaccine, unspecified formulation Lakesha Kent APRN.MEDICAL LIAISON Work Phone: [facility] 11-26-2020 tetanus toxoid, reduced diphtheria toxoid, and acellular pertussis vaccine, adsorbed [facility] 06-14-2020 [facility] SARS-COV-2 (COVID-19) vaccine, vector non-replicating, recombinant spike protein-Ad26, preservative free, 0.5 mL (UGF=885) Maria Fernanda Evans BARREL SCRAPER-MEDICAL LIAISON Work Phone: [facility] 01-07-2010 influenza virus vaccine, unspecified formulation Chelita Oliveira PA-C Work Phone: [facility] Payers Date Payer Category Payer Self-pay [id number] 2020 Private Health Insurance [facility] CCN [employer] [id number] 2020-Present [phone] [address] [place] [address] PPO [id number] 2019 Unknown [facility] xx [id number] 2019-Present [id number] 2019 Unknown [facility] xx [id number] 2019-Present [id number] [id number]. [id number] 2019 Unknown [id number] 2012 Unknown [id number] 1947 Unknown [id number] 2.16.840.1.398693.3.579. 2.903 1947 Unknown [id number] 2.16.840.1.455077.3.579. 2.651 1947 Unknown [id number] 2.16.840.1.944035.3.579. 2.651 1947 Unknown [id number] 2.16.840.1.149902.3.579. 2.651 1947 Unknown [id number] 2.16.840.1.389091.3.579. 2.651 1947 Unknown [id number] 2.16.840.1.594749.3.579. 2.651 1947 Unknown [id number] 2.16.840.1.886063.3.579. 2.65 1947 Unknown [id number] 2.16.840.1.907258.3.579. 2.65 1947 Unknown [id number] 2.16.840.1.442387.3.579. 2. 1947 Unknown [id number] 2.16.840.1.168916.3.579. 2. 1947 Unknown [id number] 2..840.1.872171.3.579. 2. 1947 Unknown [id number] 2.16.840.1.994043.3.579. 2.65 1947 Unknown [id number] 2.16840.1.737431.3.579. 2.903 Unknown [id number] 2.16.840.1.941511.3.579. 2.462 Unknown [id number] 2.16.840.1.376097.3.579. 2.462 Unknown [id number] 2.16.840.1.839408.3.579. 2.462 Unknown [id number] 2.16.840.1.150976.3.579. 2.462 Unknown [id number] 2.16.840.1.273073.3.579. 2.462 Unknown [id number] 2.16.840.1.748589.3.579. 2.462 Unknown [id number] 2.16.840.1.863516.3.579. 2.462 Unknown [id number] 2.16.840.1.397348.3.579. 2.462 Unknown [id number] 2.840.1.160041.3.579. 2.462 Unknown [id number] 2.840.1.117309.3.579. 2.462 Unknown [id number] 2.840.1.184095.3.579. 2.462 Unknown [id number] 2.0.1.799946.3.579. 2.462 Social History Date Type Detail Facility Start: 05-10-2019 End: 11-26-2020 Tobacco smoking status NHIS Never smoker [facility] Start: 05-10-2019 End: 06-27-2019 Alcohol intake Current drinker of alcohol (finding) [facility] Start: 05-10-2019 Alcohol Comment socially [facility] Start: 1945 Sex Assigned At Not on file [facility] Start: 06-27-2019 End: 02-14-2023 Tobacco use and exposure Never used [facility] Start: 11-26-2020 End: 03-07-2023 Alcohol intake Ex-drinker (finding) [employer] Work Phone: Exposure to SARS-CoV-2 (event) Not sure [facility] Start: 04-13-2021 End: 07-16-2023 Tobacco smoking status PAIS Unknown if ever smoked [facility] Start: 08-08-2017 Occasional [facility] Start: 08-08-2017 None [facility] Start: 08-31-2014 Alone [facility] Start: 08-31-2014 Non-smoker [facility] Start: 1945 Sex Assigned At Male [facility] Start: 11-05-2015 End: 12-05-2024 Tobacco smoking status NHIS Ex-smoker [facility] End: 11-05-1979 History of tobacco use Current smoker [facility] End: 11-05-1979 History of tobacco use Cigarette Smoker [facility] Start: 12-22-2022 End: 02-14-2023 Alcohol intake [facility] Start: 12-22-2022 End: 02-14-2023 Tobacco use panel [facility] National Score (1-100), lower number is lower risk 76 [facility] Goals Date Patient Goal Desired Activity /State Functional Status Date Assessment Result Facility 03-15-2023 Functional status Ambulates [facility] Work Phone: 03-14-2023 Functional status None [facility] Work Phone: 02-18-2023 Functional status Ambulates;Up ad faby Romero [facility] Work Phone: 02-06-2022 Functional status Ambulates;Bedrest [facility] Work Phone: Mental Status Date Assessment Result Facility 03-27-2023 Cognitive function Voice/Name [facility] Work Phone: 03-15-2023 Cognitive function Voice/Name [facility] Work Phone: 02-18-2023 Cognitive function Voice/Name [facility] Work Phone: 02-09-2023 Cognitive function Level Of Cons ciousness Awake;Alert;Appropriate;Follow s Commands;Responds to vocal stimuli [facility] Work Phone: 02-05-2022 Cognitive function Voice/Name [facility] Work Phone: 02-04-2022 Cognitive function Voice/Name [facility] Work Phone: Clinical Notes 12-01-2020 to 12-05-2024 Note Date & Type Note Facility 12-05-2024 Discharge summary [facility] 12-05-2024 Radiology Diagnostic study note [facility] Imaging Services [address] [place] [address] Chest PA and Lateral MR#: [id number] Acct: [id number] Name: BRANDON KULKARNI Rep #: [id number] : 1945 M 79 From: Mckenzie Ma MD PCP: [facility] Status: REG ER Study:Chest PA and Lateral Date of Exam: 12/05/24 Exam# [id number] Ordering Dr: Víctor Yanes MD PROCEDURE: CHEST PA AND LATERAL 12/05/2024 REASON FOR EXAM: COUGH, WHEEZING, COPD TECHNIQUE: Procedure Code: RADCXR Modality: DX Procedure: CHEST PA AND LATERAL COMPARISON: 07/16/23 FINDINGS: Left chest pacer. Mild pulmonary vascular congestion. no focal consolidation. No pleural effusion or pneumothorax. Cardiac silhouette is stable. Calcified aortic arch. No acute fractures. RAD/Chest PA and Lateral IMPRESSION: Mild pulmonary vascular congestion. no focal consolidation. Reading Location: [facility] CC: Dr. Constantin Yanes MD; [facility] ~ Technical Support Technician: Signed [facility] 12-05-2024 Discharge summary Note Date/Time December 05, 2024 11:28pm [facility] Medical Records Department [address] [place] [address] Emergency Department Summary 12/05/24 MR#: [id number] Acct: [id number] Name: BRANDON KULKARNI Rep #:[id number] : 1945 79 From: Constantin Yanes MD PCP: [facility] Status:REG ER Location: ED HPI History of Present Illness Chief Complaint: Cough Detail of Chief Complaint: Cough and shaking chills that started yesterday Informant: patient and spouse/S.O. Onset/Context/Timing Onset: Yesterday Context: sudden Timing: Intermittent Quality: Positive for Dyspnea on exertion and Wheezing; Negative for Orthopnea or PND Current Severity: Mild Maximum Severity: Moderate Worsened by: Nothing Relieved by: Nothing Associated Symptoms cough, post nasal drip and chills; Negative for rhinorrhea, ear pain, fever, sore throat, subjective or sweats Chest Pain: Positive for None Narrative PE Risk Factors: Negative for Cancer, OCP + Smoking + > 35, Prior DVT or PE, Recent immobilization, Recent surgery or Recent travel Prior similar symptoms: Yes Recent Illness/Hospitalization: No PFSH PFSH Medical History Skin cancer GI bleed Atrial fibrillation Pacemaker Bleeding tendency Anemia GERD (gastroesophageal reflux disease) Rheumatoid arthritis Back pain due to injury Syncope High cholesterol History of stress test Irregular heartbeat Chronic anticoagulation Anemia HTN (hypertension), benign Hyperlipemia, mixed Tachy-cory syndrome Longstanding persistent atrial fibrillation Multiple premature ventricular complexes Obesity Chronic diastolic (congestive) heart failure 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 Unstable angina Troponin I above reference range Lightheadedness Home Medications ?Medication ?Instructions ?Recorded ?Last Taken ?Type cholecalciferol (vitamin D3) 50 50 mcg PO DAILY SUPPLE MENT 04/13/21 07/16/23 History mcg (2,000 unit) tablet colchicine 0.6 mg tablet 1.2 mg PO DAILY PRN gout 06/2307/16/23 History folic acid 1 mg tablet 2 mg PO DAILY SUPPLEMENT 06/2307/16/23 History apixaban 5 mg tablet 5 mg PO BID BLOOD THINNER # 90 tabs 05/14/22 07/16/23 Rx doxazosin 1 mg tablet 1 mg PO DAILY BLOOD PRESSURE #90 05/14/22 07/16/23 Rx tabs pantoprazole 40 mg tablet,delayed 40 mg PO DAILY ACID REFLUX #180 05/14/22 07/16/23 Rx release tabs rosuvastatin 20 mg tablet 20 mg PO DAILY CHOLESTEROL # 90 tabs 05/14/22 07/16/23 Rx allopurinol 100 mg tablet 200 mg PO DAILY GOUT 3 07/16/23 History acetaminophen 325 mg tablet 325 mg PO Q6H PRN pain 12/2507/16/23 History (Tylenol) aspirin 81 mg chewable tablet 81 mg PO DAILY #30 tabs 03/15/23 07/16/23 Rx albuterol sulfate 90 mcg/actuation 2 puff inhalation Q 4H PRN PRN 05/26/23 07/16/23 Rx aerosol inhaler (Ventolin HFA) Wheezing ##1 isosorbide mononitrate 30 mg 30 mg PO DAILY #30 tabs 0 07/16/23 Unknown Rx tablet,extended release 24 hr fluticasone 100 mcg-salmeterol 50 1 inh inhalation BID 07/29/23 Unknown History mcg/dose blistr powdr for inhalation (Wixela Inhub) furosemide 40 mg tablet (Lasix) 40 mg PO DAILY 4 Unknown History metoprolol succinate 50 mg 50 mg PO BID 07/29/23 Unkno wn History tablet,extended release 24 hr gabapentin 300 mg capsule 300 mg PO TID 12/04/24 Unkno wn History lidocaine 5 % topical patch 2 patch topical QDAY 12/04 Unknown History vit C 250 mg-vit E 90 mg-zinc 40 1 tab PO BID 12/04/24 Unknown History mg-copper 1 [id number] capsule (PreserVision AREDS-2) Allergy/AdvReac Type Severity Reaction Status Date / Time lisinopril Allergy Angioedema Verified 12/05/24 19:32 Penicillins (PCN) Allergy Hives Verified 12/05/24 19:32 Family History Other CVA (cerebral vascular accident) Hypertension Surgical History History of appendectomy History of heart artery stent H/O cardiac catheterization History of colonoscopy with polypectomy History of permanent cardiac pacemaker placement (12/15/20) History of coronary artery stent placement (09/22/20) History of left heart catheterization (02/05/22) History of arthroscopic knee surgery Social History Smoking Status: Former smoker how long ago did patient quit smokin years ago alcohol intake: never substance use type: does not use caffeine: No ROS ROS ED Constitutional Constitutional ED: Reports chills; Denies fever(s) or sweats Eyes Eyes: Denies blurry vision or change in vision ENT ENT ED: Reports other Details: Mild nasal congestion. ; Denies ear pain, rhinorrhea or sore throat Cardiovascular Cardiovascular: Denies chest pain, orthopnea, palpitations or paroxysmal nocturnal dyspnea Respiratory/Chest Respiratory/Chest: Reports cough and dyspnea on exertion; Denies orthopnea, paroxysmal nocturnal dyspnea or sputum Gastrointestinal Gastrointestinal: Denies abdominal pain, diarrhea or vomiting Genitourinary Genitourinary ED: Denies dysuria, hematuria or urinary frequency Musculoskeletal Musculoskeletal: Denies arthralgias or myalgias Integumentary Denies rash Neurologic Neurologic: Denies headache(s) or weakness Psychiatric Psychiatric: Denies anxiety or depression Endocrine Endocrinology: Denies cold intolerance or heat intolerance Hematologic/Lymphatic Hematologic/Lymphatic: Reports easy bruising; Denies easy bleeding EXAM Physical Exam Const Vital Signs: 12/05/24 19:30 12/05/24 20:05 12/05/24 21:30 Temperature 98.5 F Temperature Source Oral Pulse Rate 59 L 60 Respiratory Rate 18 16 Respiratory Effort Normal Respiratory Pattern Normal Blood Pressure 158/97 H Blood Pressure Mean 117 Pulse Ox 97 Oxygen Delivery Method Room Air 12/05/24 21:30 12/05/24 21:31 12/05/24 21:33 Temperature 100.0 F H Temperature Source Oral Pulse Rate 57 L 60 Respiratory Rate 27 H 17 Respiratory Effort Respiratory Pattern Blood Pressure 163/62 H 181/70 H Blood Pressure Mean 95 107 Pulse Ox 97 100 100 Oxygen Delivery Method Room Air Room Air Room Air 12/05/24 22:00 Temperature 100.0 F H Temperature Source Oral Pulse Rate 57 L Respiratory Rate 15 Respiratory Effort Respiratory Pattern Blood Pressure 163/62 H Blood Pressure Mean 95 Pulse Ox 99 Oxygen Delivery Method Room Air Positive well nourished and well developed Constitutional Narrative: Initial vital signs were unremarkable. Blood pressure is slightly elevated. Pedro have a history of hypertension. He is not hypoxic. General Appearance ED: well developed HEENT Reports moist mucous membranes HEENT Narrative: Head is atraumatic normocephalic. Ears normal. Nares patent. There is no discharge. Posterior pharynx unremarkable. Is no tenderness of the frontal maxillary sinuses. Eyes PERRL and EOMs intact bilaterally General Eye ED: Negative for pale conjunctiva or scleral icterus Neck no lymphadenopathy, supple, no meningeal signs and no JVD Resp normal respiratory effort and No clear to auscultation bilaterally Effort and Inspection: Negative for pain with movement Auscultation: wheezes expiratory wheezes and throughout Cardio regular rate, regular rhythm and no murmurs GI non-tender, non-distended and no masses Auscultation: normoactive bowel sounds Palpation: soft Back/Spine no CVA tenderness Extremity normal to inspection General Extremety ED: Negative for edema or tenderness General Extremity: Negative for edema Neuro oriented x3 and CN's II-XII intact bilaterally Psych mental status grossly normal Thought Process: normal thought process Skin no wounds and skin turgor normal MDM MDM MDM Narrative Medical decision making narrative: History and physical is consistent with exacerbation COPD. He is wheezing. Will treat with prednisone p.o. DuoNeb and albuterol. He was reassessed and wasmoving more air but still diminished. There is no expiratory wheezing with forced expiration noted. There is rales per the respiratory therapist, which I did not appreciate. He had rigors in front of me. In light of this blood work was obtained. Was informed by nurse that is demanding a lidocaine patch and Tylenol. These were ordered. History & Record Review Discussion w/independent historian: Patient and Significant other Lab Data Attestation: I reviewed the patient's lab results. Lab results narrative: White count is unremarkable. There is a slight shift. H&H is normal. Indices are normal Labs: Laboratory Results - last 24 hr 12/05/24 12/05/24 20:25 22:05 WBC 9.0 RBC 4.33 L Hgb 13.2 Hct 39.0 L MCV 90.1 MCH 30.5 MCHC 33.8 RDW Std Deviation 45.3 H RDW Coeff of Misti 13.5 Plt Count 114 L MPV 11.4 Immature Gran % (Auto) 1.000 H Neut % (Auto) 70.9 H Lymph % (Auto) 14.7 L [place] % (Auto) 10.7 H Eos % (Auto) 1.9 Baso % (Auto) 0.8 Absolute Neuts (auto) 6.4 Absolute Lymphs (auto) 1.32 Nucleated RBC % 0 Lactic Acid 3.4 H* Lactate is 3.4. Patient appears ill. With elevated temperature elevated lactate will contact hospitalist for observation MedSurg. My opinion since patient is gotten worse even though his breathing has improved and he now has a fever with an elevated lactate and he is on no medication that would explain hiselevated lactate in my opinion he should be admitted and observed for 24 hours on IV antibiotics. Because of his reaction to penicillin he was treated with levofloxacin. Radiography Chest X-Ray - ED: 2 View and Read by ED Physician (There is chronic changes noted. There is no infiltrate or effusion noted.) Diagnostic Testing: Clinical Impression(s) from Imaging Studies Chest X-Ray 12/05/24 21:20 IMPRESSION: Mild pulmonary vascular congestion. no focal consolidation. Reading Location: [facility] The radiology report was reviewed. The x-ray was reexamined by me. There is chronic changes. There is no cephalization curly B-lines or evidence of effusion. Treatment and Re-Evaluation :: Review of vital signs indicates patient now has an elevated temperature of 100.0. Based on age that by definition is a fever. Will start on antibiotics, doxycycline. Discharge Plan Dx/Rx/DC Orders Clinical Impression: Acute exacerbation of chronic obstructive pulmonary disease, HTN (hypertension), benign, Atrial fibrillation, Acute bronchospasm, Acidosis, lactic, Rigors Disposition Disposition: [facility] Care [facility] What to do if you have Problems For any increased pain, shortness of breath, bleeding, nausea or vomiting, chestpain, or any unexpected problems, contact your Primary Care Provider. Call [facility] ([phone]) or report to the closest Emergency Room. Call 911 if necessary. 12/05/24 8848 <Electronically signed by Constantin Yanes MD> Cosigner Signature (if applicable): CC: [facility] ~ Signed [facility] Work Phone: 1(226) 490-658806-02-2025 Evaluation note* Diagnosis Onset Date Resolution Status Admit Date Anemia acute September 03, 2024 9:30am SOB (shortness of breath) acute September 03, 2024 9:30am Chronic diastolic (congestive) heart failure chronic September 03, 2024 9:30am History of permanent cardiac pacemaker placement December 15, 2020 chronic September 03 025 9:30am HTN (hypertension), benign chronic September 03, 2024 9:30am Hyperlipemia, mixed chronic September 03, 2024 9:30am History of coronary artery stent placement September 22, 2020 inactive September 03, 2024 9:30am Longstanding persistent atrial fibrillation inactive September 03 9:30am [facility] Work Phone: 1(721) 845-853406-02-2025 Evaluation note* Diagnosis Onset Date Resolution Status Admit Date Anemia acute September 03, 2024 9:30am SOB (shortness of breath) acute September 03, 2024 9 :30am Chronic diastolic (congestive) heart failure chronic September 03, 2024 9 :30am History of coronary artery stent placement September 22, 2020 chronic September 03, 2024 9:30am History of permanent cardiac pacemaker placement December 15, 2020 chronic September 03 025 9:30am HTN (hypertension), benign chronic September 03, 2024 9 :30am Hyperlipemia, mixed chronic September 03, 2024 9:30am Longstanding persistent atrial fibrillation chronic September 03 9:30am Anemia acute December 04, 2024 12:54pm SOB (shortness of breath) acute December 04 12:54pm Chronic diastolic (congestive) heart failure December 04 12:54pm History of coronary artery stent placement September 22, 2020December 04, 2024 12:54pm History of permanent cardiac pacemaker placement December 15, 2020December 042024 12:54pm HTN (hypertension), benign chronic December 04 12:54pm Hyperlipemia, mixed chronic Septe mb2024 12:54pm Longstanding persistent atrial fibrillation december 12:54pm [facility] [employer] Work Phone: 1(974) 105-262706-02-2025 Evaluation note* Diagnosis Onset Date Resolution Status Admit Date Anemia acute September 03, 2024 9:30am SOB (shortness of breath) acute September 03, 2024 9 :30am Chronic diastolic (congestive) heart failure September 03, 2024 9 :30am History of coronary artery stent placement September 22, 2020September 03, 2024 9:30am History of permanent cardiac pacemaker placement December 15, 2020September 03 9:30am HTN (hypertension), benign chronic September 03, 2024 9 :30am Hyperlipemia, mixed chronic September 03, 2024 9:30am Longstanding persistent atrial fibrillation chronic September 03 9:30am Anemia acute December 04, 2024 12:54pm Chronic diastolic (congestive) heart failure December 04 12:54pm History of coronary artery stent placement September 22, 2020December 04, 2024 12:54pm History of permanent cardiac pacemaker placement December 15, 2020 chronic December 042024 12:54pm HTN (hypertension), benign chronic December 04 12:54pm Hyperlipemia, mixed chronic Septe mb2024 12:54pm Longstanding persistent atrial fibrillation december 12:54pm Acidosis, lactic acute Septembe r 2024 11:26pm Acute bronchospasm acute Septem donald 2024 11:26pm Atrial fibrillation acute Septe mber 2024 11:26pm Rigors acute December 05, 2024 11:26pm Acute exacerbation of chronic obstructive pulmonary disease chronic December 05, 2024 11:26pm HTN (hypertension), benign chronic December 05 025 11:26pm [facility] Work Phone: 1(169) 579-575310-30-2024 Telephone encounter Note* Telephone Encounter - Clarisse Smith LPN - 02/01/2024 1:08 PM EDT A copy of this note was faxed to Cassidy at the OR. I also left Cassidy a message asking her to contact this nurse. Clarisse Smith LPN [facility]10-30-2024 Miscellaneous Notes* Telephone Encounter - Clarisse Smith LPN - 02/01/2024 1:08 PM EDT A copy of this note was faxed to Cassidy at the OR. I also left Cassidy a message asking her to contact this nurse. Clarisse Smith LPN * Telephone Encounter - Lina Dobbs - 02/01/2024 12:51 PM EDT Looks like Jocelyn tried to reach Cassidy a few weeks ago. (In telephone encounter dated 11/28/2023) Dr. South reviewed labs, Hgb low but anemia work up labs are WNL. No need for additional labsor follow up at this time. On 11/25/23 hgb 12 hct 37.9, up to 12.2 on 12/25 With an improvement in counts no further workup is indicated at this time but would be happy to seethe patient if he wishes to be seen. Lina Dobbs APRN.MEDICAL LIAISON * Telephone Encounter - Clarisse Smith LPN - 02/01/2024 12:03 PM EDT Cassidy, from the OR, calling to check on status of patient appointment. Referral was for anemia. Patient no showed in September 2023 and was rescheduled to 11/25/2023. Patient had labs on 11/25/2023, OV appointment was canceled and Dr. Torres said he would call with results, unsure if that happened. Lina, can you please review lab results from 11/25/2023, and determine if patient needs to be seen for anemia? Clarisse Smith LPN [facility] Telephone encounter Note * Telephone Encounter - Lina Dobbs - 02/01/2024 12:51 PM EDT Looks like Jocelyn tried to reach Cassidy a few weeks ago. (In telephone encounter dated 11/28/2023) Dr. South reviewed labs, Hgb low but anemia work up labs are WNL. No need for additional labsor follow up at this time. On 11/25/23 hgb 12 hct 37.9, up to 12.2 on 12/25 With an improvement in counts no further workup is indicated at this time but would be happy to seethe patient if he wishes to be seen. Lina Dobbs APRN.MEDICAL LIAISON [facility] Work Phone: 1(480) 264-631210-30-2024 Telephone encounter Note* Telephone Encounter - Clarisse Smith LPN - 02/01/2024 12:03 PM EDT [facility] on [facility] of [facility] appointment. Referral was for anemia. Patient no showed in September 2023 and was rescheduled to 11/25/2023. Patient had labs on 11/25/2023, OV appointment was canceled and Dr. Torres said he would call with results, unsure if that happened. Lina, can you please review lab results from 11/25/2023, and determine if patient needs to be seen for anemia? Clarisse Smith LPN [facility]09-09-2024 Telephone encounter Note* Telephone Encounter - Mya Lanza RN - 12/12/2023 8:29 AM EDT This was given to Dr. South 2 weeks ago to call. Jocelyn Lanza RN [facility] Work Phone: [phone]) 410-217709-09-2024 Miscellaneous Notes* Telephone Encounter - Mya Lanza RN - 12/12/2023 8:29 AM EDT This was given to Dr. South 2 weeks ago to call. Jocelyn Lanza RN * Telephone Encounter - Barbara Colon - 11/28/2023 3:28 PM EDT [facility]. Please call Cassidy at [phone] x [phone]. Please fax 11/24 [facility] results to [facility] [phone] [facility] to the [facility]. Clarisse Smith LPN * Telephone Encounter - Clarisse Smith LPN - 11/28/2023 3:24 PM EDT OR contacted office asking why new patient appointment on 11/25/2023 was cancelled? Also, if patient was notified of lab results? Clarisse Smith LPN [facility] Telephone encounter Note * Telephone Encounter - Barbara Colon - 11/28/2023 3:28 PM EDT OR states PCP to be evaluated. Please call Cassidy at [phone] x [phone]. Please fax 11/24 lab results to OR [phone] [facility]. Clarisse Smith LPN [facility] Work Phone: 1(867) 718-658908-26-2024 Telephone encounter Note* Telephone Encounter - Clarisse Smith LPN - 11/28/2023 3:24 PM EDT OR contacted office asking why new patient appointment on 11/25/2023 was cancelled? Also, if patient was notified of lab results? Clarisse Smith LPN [facility]07-17-2024 Telephone encounter Note* Telephone Encounter - Barbara Colon - 10/19/2023 10:41 AM EDT Rescheduled with patient [facility] Work Phone: 1([phone]) 144-957307-17-2024 Miscellaneous Notes* Telephone Encounter - Barbara Colon - 10/19/2023 10:41 AM EDT Rescheduled with patient * Telephone Encounter - Lizabeth Monroe RN - 10/18/2023 2:11 PM EDT Abril from OR in [place] called asking if pt ever came in for appointment. He has not. He no showed on 09/[address] South. Abril asked if we could attempt to call pt and offer to reschedule please? documented [facility] Telephone encounter Note * Telephone Encounter - Lizabeth Monroe RN - 10/18/2023 2:11 PM EDT Abril from OR in [place] called asking if pt ever came in for appointment. He has not. He no showed on 09/[address]. Abril asked if we could attempt to call pt and offer to reschedule please? [facility]04-13-2024 Hospital Discharge instructions Additional Instructions Take your Imdur 30 mg in the morning per Dr. Hogan You may have a headache in the first 3 to 4 days from your Imdur, use Tylenol as needed. Use your albuterol inhaler every 4 hours while awake for the next 5 to 7 days to help treat your shortness of breath symptoms. Follow-up with your denial management representative and the [facility] if any other additional medication is needed for COPD. Use the Tessalon Perles and Bromfed as needed For coughing symptoms. Use [id number] Claritin, Zyrtec or Rachel to help with allergy symptoms. Use Flonase daily to help with sinus congestion. If you are having any other significant chest heaviness, tightness, pressure, or any other acute complaints, Return back to the ER for [facility] evaluation and [facility] Work Phone: 1(828) 899-527512-12-2023 Progress note Author Pavel Atkins [facility] March 15, 2023 8:26am Note Date/Time March 15, 2023 7:54am [facility] Medical Records Department [address] [place] [address] Progress Note - Surgery 03/15/23 0754 MR#: [id number] Acct: [id number] Name: BRANDON KULKARNI Rep #:[id number] : 1945 77 From: Pavel Hamilton [place] [place] Status:ADM [place] [facility] [place] Subjective Subjective Patient seen and examined during AM rounds. He is found resting in bed, but reports that he had a difficult night. By this he explains he does not sleep at all. He states that he had several times where he felt like he may have to use the bathroom but it was simply gas. He denies any observation of bleeding. He also reports that his symptoms of lightheadedness have improved. Objective Data Objective Data Vital Signs: Vital Signs Temp Pulse Resp BP Pulse Ox O2 Del Method O2 Flow Rate 98.3 F 60 16 119/61 98 Room Air 100 03/15/23 05:00 03/15/23 05:00 03/15/23 05:00 03/15/23 05:00 03/15/23 05:00 03/15/23 05:00 03/13/23 10:00 Oxygen Flow Rate (L/min) 100 Oxygen Delivery Method Room Air Weight: 246 lb 1.597 oz Body Mass Index (BMI) 30.7 Intake & Output: Intake and Output for Last 24 Hours 03/13/23 03/14/23 03/15/23 23:59 23:59 23:59 Intake Total 111 / 111 1160 / 1160 Balance 111 / 111 1160 / 1160 Lab / Micro Data 03/14/23 14:40 03/13/23 05:32 Labs: Laboratory Results - last 24 hr 03/12/23 08:00: Crossmatch See Detail 03/14/23 14:40: Hgb 8.3 L, Hct 25.1 L Physical Exam Const oriented x3 and no apparent distress Resp normal respiratory effort GI GI Narrative: Nondistended, soft, nontender to palpation x 4 quadrants Assessment & Plan Assessment/Plan (1) Acute GI bleeding: (2) History of colonoscopy with polypectomy: (3) Chronic anticoagulation: PLAN: Plan This is a 77-year-old male who is 13 days status post colonoscopy with polypectomy at outside facility. 1 week ago he resumed his anticoagulation but developed melanic stools and became symptomatic from some acute blood loss anemia. Therefore he was taken to the endoscopy suite 03/13/2023 for upper and lower endoscopy. No active bleeding was found, but there were a number of largeclots within the colon that I evacuated and I was able to identify at least 3 ofthe patient's 6 prior polypectomy sites that were nonbleeding. He was transfused yesterday after his hemoglobin failed to respond appropriatelyto prior transfusion and he remained symptomatic. His hemoglobin yesterday afternoon, however, did show an appropriate rise and his diet was advanced. Hislabs are pending for this morning, but if these demonstrate stability or furtherrebound I believe he would be clinically well enough for discharge to home. Would tentatively plan for another 24-hour hold on Eliquis before resuming. Patient looking to follow-up with Dr. Contreras as an outpatient. Charges/Coding Visit Charges Inpatient E&M: 22241 Subs Hosp L2 03/15/23825 <Electronically signed by Pavel Atkins MD> Cosigner Signature (if applicable): CC: ~ Signed [facility] Work Phone: 1(457) 665-413712-11-2023 Progress note Author Anh Salinas [facility] March 14, 2023 4:47pm Note Date/Time March 14, 2023 1:17pm [facility] Medical Records Department [address] [place] [address] Progress Note 03/14/23 1311 MR#: [id number] Acct: [id number] Name: BRANDON KULKARNI Rep #:[id number] : 1945 77 From: Anh Salinas MD PCP: [facility] Status:ADM IN Location: [place] [id number] Subjective Subjective Patient seen and examined. His son and daughter were by his bedside. He had noactive complaints. He had not had any more rectal bleeding. Review of systems otherwise negative. Hemoglobin today is down to 7.4. Objective Data Objective Data Vital Signs: Vital Signs Temp Pulse Resp BP Pulse Ox O2 Del Method O2 Flow Rate 98.4 F 59 L 16 116/60 98 Room Air 100 03/14/23 12:00 03/14/23 12:00 03/14/23 12:00 03/14/23 12:00 03/14/23 12:00 03/14/23 12:00 03/13/23 10:00 Oxygen Flow Rate (L/min) 100 Oxygen Delivery Method Room Air Weight: 246 lb 1.597 oz Body Mass Index (BMI) 30.7 Intake & Output: Intake and Output for Last 24 Hours 03/12/23 03/13/23 03/14/23 23:59 23:59 23:59 Intake Total 111 / 111 111 / 111 410 / 410 Balance 111 / 111 111 / 111 410 / 410 Lab / Micro Data 03/14/23 04:51 03/13/23 05:32 Labs: Laboratory Results - last 24 hr 03/12/23 07:55: Crossmatch See Detail 03/12/23 08:00: Crossmatch See Detail 03/13/23 13:49: Hgb 7.0 L, Hct 21.8 L 03/14/23 04:51: WBC 7.6, RBC 2.48 L, Hgb 7.4 L, Hct 23.4 L, MCV 94.4 H, MCH 29.8, MCHC 31.6 L, RDW Std Deviation 52.1 H, RDW Coeff of Misti 15.2 H, Plt Count 130 L, MPV 11.9 Physical Exam Const alert, oriented x3 and no apparent distress General Appearance: cooperative and well developed HEENT head/scalp atraumatic, moist oral mucous membranes and oropharynx normal Eyes EOMs intact bilaterally Neck no lymphadenopathy and supple Lymph Lymphatic: no lymphadenopathy noted and no lymphedema noted Resp normal respiratory effort, normal air movement and clear to auscultation bilaterally Cardio regular rate, regular rhythm, S1 normal heart sound, S2 normal heart sound and no murmurs GI normal to inspection, nondistended, normoactive bowel sounds, soft to palpation and non-tender Extremity no clubbing, cyanosis or edema General Extremity: no tenderness to palpation of joints or extremities Skin General Skin Exam: no breakdown Neuro CN's II-XII intact bilaterally, no focal motor deficits, no sensory deficits noted and deep tendon reflexes 2+ bilaterally Motor Exam: strength 5/5 throughout and general weakness Psych thought process normal, cooperative and affect normal Appearance: appropriate Assessment & Plan Assessment/Plan (1) Acute GI bleeding: (2) Anemia: PLAN: Plan #Acute on chronic anemia due to lower GI bleed * eliquis on hold. Didnt have any recurrent bleeding overnight * had EGD and colonoscopy during this admission; EGD showed no gross lesions in the duodenal bulb showed a few gastric polyps with gastritis. Colonoscopy showed blood in the entire examined colon with post polypectomy scar at the hepatic flexure and three 5 to 15 mm nonbleeding polyps in the descending colon at the hepatic flexure with no specimens collected. There was one 20 mm polyp in the cecum. * Hemoglobin is 7.4 today. Being transfused another unit of packed red cells. General surgery. * Did have recent colonoscopy where he had multiple polyps removed and the concern is that this bleeding could have been from the polypectomy sites. * Does take oral iron supplements and his PCP apparently recently told him to stop taking it but subsequently informed him that he had resumed taking it according to his daughter. To put back on oral iron on discharge. * #A-fib: Eliquis currently on hold. Decision has to be made about whether to resume it prior to discharge or otherwise. #History of gout: On colchicine #Heart failure preserved ejection fraction: On furosemide which is on hold. DVT prophylaxis: SCDs Charges/Coding Visit Charges Inpatient E&M: 89741 Subs Hosp L2 03/14/23 1647 <Electronically signed by Anh Salinas MD> Anh Salinas MD Cosigner Signature (if applicable): CC: ~ Signed [facility] Work Phone: 1(721) 341-680012-11-2023 Progress note Author Pavel Atkins [facility] March 14, 2023 12:18pm Note Date/Time March 14, 2023 11:28am [facility] Medical Records Department [address] [place] [address] Progress Note - Surgery 03/14/23 1128 MR#: [id number] Acct: [id number] Name: RBANDON KULKARNI Rep #:[id number] : 1945 77 From: Pavel Hamilton PCP: [place] [place] Status:ADM IN [place] [facility] [place]183-5 Subjective Subjective Patient seen and examined during AM rounds. He reports that he still has some mild lightheadedness when he gets up to go to the bathroom, but overall this is improved. He also reports that he has had some gas overnight but no further bowel movements and has not noticed any bleeding. Objective Data Objective Data Vital Signs: Vital Signs Temp Pulse Resp BP Pulse Ox O2 Del Method O2 Flow Rate 99.1 F 60 16 133/60 H 100 Room Air 100 03/14/23 09:00 03/14/23 09:02 03/14/23 09:00 03/14/23 09:02 03/14/23 09:00 03/14/23 09:00 03/13/23 10:00 Oxygen Flow Rate (L/min) 100 Oxygen Delivery Method Room Air Weight: 246 lb 1.597 oz Body Mass Index (BMI) 30.7 Intake & Output: Intake and Output for Last 24 Hours 03/12/23 03/13/23 03/14/23 23:59 23:59 23:59 Intake Total 111 / 111 111 / 111 110 / 110 Balance 111 / 111 111 / 111 110 / 110 Lab / Micro Data 03/14/23 04:51 03/13/23 05:32 Labs: Laboratory Results - last 24 hr 03/12/23 07:55: Crossmatch See Detail 03/12/23 08:00: Crossmatch See Detail 03/13/23 13:49: Hgb 7.0 L, Hct 21.8 L 03/14/23 04:51: WBC 7.6, RBC 2.48 L, Hgb 7.4 L, Hct 23.4 L, MCV 94.4 H, MCH 29.8, MCHC 31.6 L, RDW Std Deviation 52.1 H, RDW Coeff of Misti 15.2 H, Plt Count 130 L, MPV 11.9 Physical Exam Const oriented x3 and no apparent distress Resp normal respiratory effort GI GI Narrative: Nondistended, soft, nontender to palpation x 4 quadrants Assessment & Plan Assessment/Plan (1) Acute GI bleeding: (2) History of colonoscopy with polypectomy: (3) Chronic anticoagulation: PLAN: Plan This is a 77-year-old male who is 10 days status post colonoscopy with polypectomy at outside facility. 1 week ago he resumed his anticoagulation but developed melanic stools and became symptomatic from some acute blood loss anemia. Therefore he was taken to the endoscopy suite yesterday, 03/13/2023 forupper and lower endoscopy. No active bleeding was found, but there were a number of large clots within the colon that I evacuated and I was able to identify at least 3 of the patient's 6 prior polypectomy sites that were nonbleeding. He was transfused overnight with still an inappropriate rise in his hemoglobin, however, I would question whether or not his hemoglobin had reached his full cyndy prior to transfusion as he has not had any further evidence of blood loss on the floor. Given his cardiac history and persistent symptoms, would suggest considering an additional unit of transfusion and then rechecking his hemoglobin. If he remains stable through this check could advance his diet and monitor for tolerance. Continue to hold Eliquis for now Charges/Coding Visit Charges Inpatient E&M: 33237 Subs Hosp L2 03/14/23 1218 <Electronically signed by Pavel Atkins MD> Cosigner Signature (if applicable): CC: ~ Signed [facility] Work Phone: 1(506) 381-328412-10-2023 Progress note Author Evan Burns [facility] March 13, 2023 1:06pm Note Date/Time March 13, 2023 12:09pm [facility] Medical Records Department [address] [facility] [place] [address] Progress Note - Hospitalist 03/13/23 1203 MR#: [id number] Acct: [id number] Name: BRANDON KULKARNI Rep #:[id number] : 1945 77 From: Evan Burns DO PCP: [facility] Status:ADM [facility] Reason for Visit Reason for Visit: Diagnoses Gastrointestinal hemorrhage, unspecified (03/12/23) 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 There is no evidence of bleeding in the upper GI tract. Objective Data Objective Data Vital Signs: Vital Signs Temp Pulse Resp BP Pulse Ox O2 Del Method O2 Flow Rate 97.8 F 58 L 16 121/60 H 100 Room Air 100 03/13/23 10:45 03/13/23 10:45 03/13/23 10:45 03/13/23 10:45 03/13/23 10:45 03/13/23 10:45 03/13/23 10:00 Oxygen Flow Rate (L/min) 100 Oxygen Delivery Method Room Air Weight: 111.629 kg Body Mass Index (BMI) 30.7 Intake & Output: Intake and Output for Last 24 Hours 03/11/23 03/12/23 03/13/23 23:59 23:59 23:59 Intake Total 111 / 111 110 / 110 Balance 111 / 111 110 / 110 Lab / Micro Data 03/13/23 05:32 03/13/23 05:32 Labs: Laboratory Results - last 24 hr 03/12/23 00:10: Hgb 8.8 L, Hct 27.8 L 03/12/23 07:55: Crossmatch See Detail 03/12/23 16:23: Hgb 8.3 L, Hct 26.5 L 03/13/23 05:32: WBC 11.3 H, RBC 2.71 L, Hgb 7.8 L, Hct 24.9 L, MCV 91.9, MCH 28.8, MCHC 31.3 L, RDW Std Deviation 51.1 H, RDW Coeff of Misti 15.4 H, Plt Count 156, MPV 11.8, Immature Gran % (Auto) 1.100 H, Neut % (Auto) 64.0, Lymph % (Auto) 22.4, [place] % (Auto) 9.8, Eos % (Auto) 1.6, Baso % (Auto) 1.1 H, Absolute Neuts (auto) 7.2, Absolute Lymphs (auto) 2.53, Nucleated RBC % 0.2, PT 15.1 H, INR 1.2, APTT 36.9 H, Sodium 139, Potassium 3.9, Chloride 107, Carbon Dioxide 26.0, Anion Gap 6, BUN 17, Creatinine 1.00, Estim Creat Clear Calc 76.28, Est GFR (MDRD) Af Amer 94, Est GFR (MDRD) Non-Af 77, BUN/Creatinine Ratio 17.0, Glucose 111 H, Calcium 8.0 L, Total Bilirubin 1.00, Direct Bilirubin 0.26, AST 12 L, ALT 10 L, Alkaline Phosphatase 47, Total Protein 5.5 L, Albumin 2.9 L, Globulin 2.6 Physical Exam Const alert, oriented x3, no apparent distress, average body habitus and healthy appearing General Appearance: cooperative, well kempt and well developed Orientation / Consciousness: awake, oriented to person, oriented to place and oriented to time HEENT normocephalic and moist oral mucous membranes Eyes PERRL, EOMs intact bilaterally and conjunctivae normal Neck supple, no JVD, thyroid normal and no carotid bruits General: trachea midline Resp normal respiratory effort, no retractions, no use of accessory muscles and clearto auscultation bilaterally Auscultation: Negative for rales, rhonchi or wheezes Cardio regular rate, regular rhythm, S1 normal heart sound, S2 normal heart sound, no murmurs, no rub and no gallops GI normal to inspection, nondistended, normoactive bowel sounds, soft to palpation,non-tender and non-distended Extremity no clubbing, cyanosis or edema Skin no rashes or lesions noted General Skin Exam: no breakdown Neuro oriented x3, CN's II-XII intact bilaterally, moves all extremities, no focal motor deficits and no sensory deficits noted Sensorium / Orientation: awake, alert, oriented to person, oriented to place andoriented to time Speech: speech normal Psych affect normal Assessment & Plan Assessment/Plan (1) Acute GI bleeding: PLAN: Plan 1. Acute lower GI bleed-most probably from previous polypectomy sites and colon, patient is to hold his Eliquis, I will be repeating his hemoglobin this afternoon, hemoglobin this morning was 7.8. #2 multiple colon polyps-patient states he is going to follow-up with Dr. Contreras in [place], he has an upcoming appointment next week. #3 atrial fibrillation-patient has a paced rhythm-again I will advise the patient's to stay off his Eliquis for now #4 acute blood loss anemia requiring blood transfusion believed to have come from previous polypectomy sites in the colon-again hemoglobin will be rechecked this afternoon Total clinical time spent by myself addressing the patient's medical issues, reviewing all of his data, and collaborating with patient's care team: 35 minutes Charges/Coding Visit Charges Inpatient E&M: 43564 Subs Hosp L2 03/13/23 1306 <Electronically signed by Evan Burns DO> Cosigner Signature (if applicable): CC: ~ Signed [facility] Work Phone: 1(515) 429-687412-10-2023 Procedure [facility] 03-13-2023 Procedure [facility]12-10-2023 Procedure note [facility]12-10-2023 Procedure [facility] 03-12-2023 Consult note Author Pavel Atkins [facility] March 12, 2023 8:03pm Note Date/Time March 12, 2023 7 :33pm [facility] Medical Records Department [address] [place] [address] Consultation - Surgical 03/12/231931 MR#: [id number] Acct: [id number] Name: BRANDON KULKARNI Rep #:[id number] : 1945 77 From: Pavel Hamilton PCP: [place] [place] Status:ADM IN [place] [facility] BU557-8 Assessment & Plan Assessment/Plan (1) Acute GI bleeding: (2) History of colonoscopy with polypectomy: (3) Chronic anticoagulation: PLAN: Plan This is a 77-year-old male who is 10 days status post colonoscopy with polypectomy at outside facility. 1 week ago he resumed his anticoagulation but just this morning developed acute onset of melanic stools. This has resulted inacute blood loss anemia?even within the duration of his current ER stay. He also reports symptoms of lightheadedness and weakness. There have been approximately 5 stools since his evaluation began in our ER. Patient initially reported that he underwent both EGD and colonoscopy, however, we were able to obtain outside records that suggest he underwent a colonoscopy alone with polypectomy x 6. Polyps were removed from the cecum, ascending colon, and transverse colon during that procedure. Given the recency of this procedure it is likely that his bleed is to be attributed to this recent intervention. With patient initially reporting EGD as well as colonoscopy and the character of stools is being melanic I suggested that we proceed for diagnostic EGD and colonoscopy after a bowel prep tomorrow. Patient is currently receiving packed RBCs per hospitalist service after his hemoglobin has down trended and considering his involved past cardiac history. Fortunately he reports this cardiac history to be relatively stable. Patient is in agreement with this planand I have requested a bowel prep in anticipation of tomorrow's procedure. Continue to hold Eliquis and recommend periodic vitals checks as well as repeat hemoglobin in the a.m. HPI Consult Data Date of Consult: 03/12/23 HPI Narrative Reason for Consultation: GI bleed HPI Narrative: BRANDON KULKARNI, is a 77 M who presents to [facility] after developing melanic stools at 4am this AM. He is recently status post surveillance colonoscopy with Dr. Contreras [facility] on 03/02/2023 where heunderwent polypectomy x 6. He shares that he had some minor bleeding post procedurally but this was largely self-limited. He then goes on to report that after his first dark stools this morning he presented to the ER where he is now at 5 bloody stools. He has also had some associated lightheadedness. ER workup was notable for CBC with initial hemoglobin of 9.4. A later check showed this had down trended to 8.3 after some additional bowel movements. Notably patient has been hemodynamically stable. Given that patient's care was through an outside facility transfer to that outside facility was initially arranged, however, due to a delay in bed availability he was admitted to our hospital. Patient has a history of paroxysmal atrial fibrillation and is thus prescribed Eliquis. He shares that he underwent colonoscopy at outside facility (likely [facility]) 3 years ago and resumed his Eliquis immediately after the procedure resulting in a postprocedural bleed event with that as well. He denies any personal history of diverticulitis or inflammatory bowel disease. From a cardiac standpoint patient has a history of CAD, CHF, hypertension, and unstable angina. He is status post coronary stents September 2020 and pacemaker December 2020. He reports that his left heart cath in February 2022 was negative and that he has not had any recent chest pains. He does acknowledge some exertional shortness of breath but remains relatively active. [facility] Medical History 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 Chronic diastolic (congestive) heart failure HTN (hypertension), benign Hyperlipemia, mixed Lightheadedness Longstanding persistent atrial fibrillation Multiple premature ventricular complexes Obesity Tachy-cory syndrome Troponin I above reference range Unstable angina Home Medications cholecalciferol (vitamin D3) 50 mcg (2,000 unit) tablet 50 mcg PO DAILY SUPPLEMENT 04/13/21 [History Last Taken 02/17/23] colchicine 0.6 mg tablet 1.2 mg PO DAILY PRN gout 02/04/22 [History Last Taken 02/17/23] ferrous gluconate 324 mg (36 mg iron) tablet 324 mg PO DAILY SUPPLEMENT 02/04/22[History Last Taken 02/17/23] folic acid 1 mg tablet 2 mg PO DAILY SUPPLEMENT 02/04/22 [History Last Taken 02/17/23] methotrexate sodium 2.5 mg tablet 15 mg PO SA arthritis 02/04/22 [History Last Taken 02/12/23] apixaban 5 mg tablet 5 mg PO BID BLOOD THINNER #90 tabs 05/14/22 [Rx Last Taken 02/17/23] doxazosin 1 mg tablet 1 mg PO DAILY BLOOD PRESSURE #90 tabs 05/14/22 [Rx Last Taken 02/17/23] furosemide 40 mg tablet 40 mg PO DAILY FLUID #90 tabs 05/14/22 [Rx Last Taken 02/17/23] pantoprazole 40 mg tablet,delayed release 40 mg PO DAILY ACID REFLUX #180 tabs 05/14/22 [Rx Last Taken 02/17/23] rosuvastatin 20 mg tablet 20 mg PO DAILY CHOLESTEROL #90 tabs 05/14/22 [Rx Last Taken 02/17/23] metoprolol succinate 50 mg tablet,extended release 24 hr 50 mg PO BID BLOOD PRESSURE #180 tabs 05/27/22 [Rx Last Taken 02/17/23] allopurinol 100 mg tablet 200 mg PO DAILY GOUT 08/31/22 [History Last Taken 02/17/23] aspirin 81 mg tablet,delayed release (Adult Low Dose Aspirin) 81 mg PO DAILY HEART HEALTH 08/31/22 [History Last Taken 02/17/23] gabapentin 100 mg capsule 100 mg PO TID NEUROPATHY 08/31/22 [History Last Taken 02/17/23] prednisone 10 mg tablet 10 mg PO DAILY PRN pain 08/31/22 [History Last Taken Unknown] potassium chloride 10 mEq tablet,extended release 10 meq PO DAILY hypokalemia #30 tabs 09/02/22 [Rx Last Taken 02/17/23] acetaminophen 325 mg tablet (Tylenol) 325 mg PO Q6H PRN pain 03/12/23 [History Last Taken Unknown] lidocaine 5 % topical patch 2 patch topical DAILY pain 03/12/23 [History Last Taken Unknown] Allergy/AdvReac Type Severity Reaction Status Date / Time lisinopril Allergy Angioedema Verified 03/12/23 07:18 Penicillins [PCN] Allergy Hives Verified 03/12/23 07:18 Family History Other CVA (cerebral vascular accident) Hypertension Surgical History History of arthroscopic knee surgery History of coronary artery stent placement (09/22/20) History of left heart catheterization (02/05/22) History of permanent cardiac pacemaker placement (12/15/20) Social History Smoking Status: Former smoker Physical Exam Const alert, oriented x3 and no apparent distress Resp normal respiratory effort GI GI Narrative: Nondistended, soft, nontender to palpation Lab / Micro Data 03/12/23 16:23 03/12/23 07:55 Labs: Laboratory Results - last 24 hr 03/12/23 07:55: WBC 12.1 H, RBC 3.23 L, Hgb 9.4 L, Hct 30.5 L, MCV 94.4 H, MCH 29.1, MCHC 30.8 L, RDW Std Deviation 53.2 H, RDW Coeff of Misti 15.3 H, Plt Count 165, MPV 11.9, Sodium 138, Potassium 3.8, Chloride 105, Carbon Dioxide 28.0, Anion Gap 5, BUN 20 H, Creatinine 1.21, Estim Creat Clear Calc 63.05, Est GFR (MDRD) Af Amer 75, Est GFR (MDRD) Non-Af 62, BUN/Creatinine Ratio 16.5, Glucose 121 H, Calcium 8.7, Total Bilirubin 0.70, AST 11 L, ALT 13 L, Alkaline Phosphatase 59, Total Protein 5.9 L, Albumin 3.1 L, Globulin 2.8, Albumin/Globulin Ratio 1.1, Blood Type B POSITIVE, Antibody Screen NEGATIVE, Crossmatch See Detail 03/12/23 16:23: Hgb 8.3 L, Hct 26.5 L 03/12/232002 <Electronically signed by Pavel Atkins MD> Cosigner Signature (if applicable): CC: Dr. Hugo Romo MD; [facility] Pavel Atkins MD; [facility]~ Signed [facility] Work Phone: 1(615) 879-519812-09-2023 Discharge summary Author Toro Melendez [facility] March 12, 2023 5:50pm Note Date/Time March 12, 2023 7 :45am [facility] Medical Records Department [address] [place] [address] Emergency Department Summary 03/12/23 MR#: [id number] Acct: [id number] Name: BRANDON KULKARNI Rep #:[id number] : 1945 77 From: Hugo Romo MD PCP: [facility] Status:REG ER Location: ED HPI HPI - GI History of Present Illness Chief Complaint: GI Bleed Informant: patient and family Abdominal Pain/Flank Pain Context: Sudden Onset Timing: Intermittent Current Severity: Mild Maximum Severity: Mild Nausea/Vomiting/Emesis GI Symptom: Negative for Nausea or Vomiting Diarrhea/Melena/Hematochezia GI Symptom: Positive for Hematochezia; Negative for Diarrhea Onset: Today Severity: Mild Associated Symptoms Associated Symptoms: Negative for Dysuria, Frequency or Hematuria Narrative Narrative: 77-year-old male on 1125 had a colonoscopy and polypectomy done at [facility] by Dr. Samuel Contreras. Patient has been doing well. He is on Eliquis for a past medical history of A-fib and today he noticed dark blood with his stool. No hematemesis. No clots. Denies any abdominal pain. Prior history ofGI bleed. Prior similar symptoms: Yes Recent Illness/Hospitalization: No PFSH PFSH Medical History 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 Chronic diastolic (congestive) heart failure HTN (hypertension), benign Hyperlipemia, mixed Lightheadedness Longstanding persistent atrial fibrillation Multiple premature ventricular complexes Obesity Tachy-cory syndrome Troponin I above reference range Unstable angina Home Medications cholecalciferol (vitamin D3) 50 mcg (2,000 unit) tablet 50 mcg PO DAILY SUPPLEMENT 04/13/21 [History Last Taken 02/17/23] colchicine 0.6 mg tablet 1.2 mg PO DAILY PRN gout 02/04/22 [History Last Taken 02/17/23] ferrous gluconate 324 mg (36 mg iron) tablet 324 mg PO DAILY SUPPLEMENT 02/04/22[History Last Taken 02/17/23] folic acid 1 mg tablet 2 mg PO DAILY SUPPLEMENT 02/04/22 [History Last Taken 02/17/23] methotrexate sodium 2.5 mg tablet 15 mg PO SA arthritis 02/04/22 [History Last Taken 02/12/23] apixaban 5 mg tablet 5 mg PO BID BLOOD THINNER #90 tabs 05/14/22 [Rx Last Taken 02/17/23] doxazosin 1 mg tablet 1 mg PO DAILY BLOOD PRESSURE #90 tabs 05/14/22 [Rx Last Taken 02/17/23] furosemide 40 mg tablet 40 mg PO DAILY FLUID #90 tabs 05/14/22 [Rx Last Taken 02/17/23] pantoprazole 40 mg tablet,delayed release 40 mg PO DAILY ACID REFLUX #180 tabs 05/14/22 [Rx Last Taken 02/17/23] rosuvastatin 20 mg tablet 20 mg PO DAILY CHOLESTEROL #90 tabs 05/14/22 [Rx Last Taken 02/17/23] metoprolol succinate 50 mg tablet,extended release 24 hr 50 mg PO BID BLOOD PRESSURE #180 tabs 05/27/22 [Rx Last Taken 02/17/23] allopurinol 100 mg tablet 200 mg PO DAILY GOUT 08/31/22 [History Last Taken 02/17/23] aspirin 81 mg tablet,delayed release (Adult Low Dose Aspirin) 81 mg PO DAILY HEART HEALTH 08/31/22 [History Last Taken 02/17/23] gabapentin 100 mg capsule 100 mg PO TID NEUROPATHY 08/31/22 [History Last Taken 02/17/23] prednisone 10 mg tablet 10 mg PO DAILY PRN pain 08/31/22 [History Last Taken Unknown] potassium chloride 10 mEq tablet,extended release 10 meq PO DAILY hypokalemia #30 tabs 09/02/22 [Rx Last Taken 02/17/23] acetaminophen 325 mg tablet (Tylenol) 325 mg PO Q6H PRN pain 03/12/23 [History Last Taken Unknown] lidocaine 5 % topical patch 2 patch topical DAILY pain 03/12/23 [History Last Taken Unknown] Allergy/AdvReac Type Severity Reaction Status Date / Time lisinopril Allergy Angioedema Verified 03/12/23 07:18 Penicillins [PCN] Allergy Hives Verified 03/12/23 07:18 Family History Other CVA (cerebral vascular accident) Hypertension Surgical History History of arthroscopic knee surgery History of coronary artery stent placement (09/22/20) History of left heart catheterization (02/05/22) History of permanent cardiac pacemaker placement (12/15/20) Social History Smoking Status: Former smoker ROS ROS ED ROS Narrative No recent illness. GI bleed. Review of Systems ROS Unobtainable: Denies due to encephalopathy Constitutional Constitutional ED: Denies chills or fever(s) ENT ENT ED: Denies ear pain Cardiovascular Cardiovascular: Denies chest pain Respiratory/Chest Respiratory/Chest: Denies cough or dyspnea Gastrointestinal Gastrointestinal: Denies abdominal pain, constipation, diarrhea, nausea or vomiting Genitourinary Genitourinary ED: Denies dysuria or hematuria Musculoskeletal Musculoskeletal: Denies arthralgias, back pain or myalgias Integumentary Denies abscess, Abrasions or rash Neurologic Neurologic: Denies headache(s) Psychiatric Psychiatric: Denies anxiety Endocrine Endocrinology: Denies polydipsia Hematologic/Lymphatic Hematologic/Lymphatic: Denies easy bleeding or easy bruising Allergic/Immunologic Allergic/Immunologic ED: Denies mouth swelling, tongue swelling or urticaria EXAM Physical Exam Narrative Exam Narrative: 77-year-old male no acute distress. Vital signs stable afebrile. HEENT exam unremarkable. Neck nontender no lymphadenopathy. Lungs clear to auscultation bilaterally. Heart regular rhythm no murmur. Abdomen is soft nontender. Rectal exam dark blood not black. Nontender. Moving all 4 extremities. Nontender no edema. Neurologically is awake and alert with no focal motor deficits. Answering questions and following commands. Const Vital Signs: 03/12/23 07:18 03/12/23 11:09 03/12/23 13:00 Temperature 96.6 F L Temperature Source Temporal Pulse Rate 60 60 58 L Respiratory Rate 18 16 16 Blood Pressure 178/84 H 128/82 H 155/67 H Blood Pressure Mean 115 97 96 Pulse Ox 99 100 97 Oxygen Delivery Method Room Air Room Air Positive well nourished and well developed; Negative for cachectic, contractures or unkempt General Appearance ED: well developed and NAD; Negative for unkempt, cachectic, contractures or pallor Nutritional Appearance: Negative for cachectic HEENT Reports moist mucous membranes normocephalic and atraumatic; Negative for trauma or tenderness Eyes PERRL and EOMs intact bilaterally General Eye ED: Negative for pale conjunctiva, scleral icterus or other Neck no lymphadenopathy, supple and no JVD General: Negative for tenderness Carotids: Negative for other Lymph Lymphatic: Negative for other Resp normal respiratory effort and clear to auscultation bilaterally Effort and Inspection: Negative for respiratory distress Auscultation: Negative for rales, rhonchi or wheezes Cardio regular rate, regular rhythm, S1 normal heart sound, S2 normal heart sound and no murmurs Rate: Negative for bradycardia or tachycardic Rhythm: Negative for abnormal rhythm GI non-tender, non-distended and no masses Inspection: Negative for abdominal distention Auscultation: normoactive bowel sounds Palpation: soft; Negative for tender, guarding or rigid Back/Spine no CVA tenderness General Back: Negative for CVA tenderness Cervical Spine: Negative for cervical spine tenderness Thoracic Spine / Upper Back: Negative for thoracic spinal tenderness Lumbar Spine / Lower Back: Negative for lumbar spinal tenderness Coccyx: Negative for other Extremity full ROM General Extremety ED: Negative for edema or tenderness General Extremity: Negative for edema Neuro CN's II-XII intact bilaterally and moves all extremities Neuro Narrative: * Sensorium / Orientation: alert, oriented to person, oriented to place and oriented to time; Negative for orientation impaired, confused, lethargic or stuporous Motor Exam: strength 5/5 throughout Psych mental status grossly normal and thought process normal Appearance: Negative for unkempt Attitude: No agitated Mood & Affect: Negative for depressed, anxious or tearful Skin no wounds General Skin Exam: Negative for jaundice or pallor Lesions: no lesions Rashes: no rashes Trauma: Negative for abrasion Nails: Negative for discolored MDM MDM MDM Narrative Medical decision making narrative: 77-year-old male GI bleed. On Eliquis. Recent colonoscopy and polypectomy about 11 days ago or so. Doing labs. Type and screen. Currently stable. Repeat exam patient is doing well at 8:45 AM. I spoke to general surgeon on-call for [facility] for Dr. Samuel Rushing. He agrees with the patient being admitted to their facility. I will go through the transfer center for admission through the hospitalist service. Patient is aware that he will be admitted to [facility]. I was informed around 230 the [facility] would not have a bed available today for the patient to be transferred. We had planned admit the patient here and then [facility] had a bed and he will be sent there. His pressure is stable. He has had additional bloody bowel movements. History & Record Review Discussion w/independent historian: Patient Additional record(s) reviewed:: Prior inpatient record, Prior outpatient record, Prior ED visit, Prior labs and No prior records Lab Data Attestation: I reviewed the patient's lab results. Lab results narrative: BC shows a white count 12.1. H&H 9.4 and 30.5. Previously had a hemoglobin 10.8 about 3 weeks ago. Platelets 165. Chemistries show a gap of 5. BUN of 20 creatinine 1.21. Liver enzymes are unremarkable. Labs: Laboratory Results - last 24 hr 03/12/23 07:55 WBC 12.1 H RBC 3.23 L Hgb 9.4 L Hct 30.5 L MCV 94.4 H MCH 29.1 MCHC 30.8 L RDW Std Deviation 53.2 H RDW Coeff of Misti 15.3 H Plt Count 165 MPV 11.9 Sodium 138 Potassium 3.8 Chloride 105 Carbon Dioxide 28.0 Anion Gap 5 BUN 20 H Creatinine 1.21 Estim Creat Clear Calc 63.05 Est GFR (MDRD) Af Amer 75 Est GFR (MDRD) Non-Af 62 BUN/Creatinine Ratio 16.5 Glucose 121 H Calcium 8.7 Total Bilirubin 0.70 AST 11 L ALT 13 L Alkaline Phosphatase 59 Total Protein 5.9 L Albumin 3.1 L Globulin 2.8 Albumin/Globulin Ratio 1.1 Blood Type B POSITIVE Antibody Screen NEGATIVE Discharge Plan Triage Chief Complaint: GI Bleed ED Provider: Hugo Romo Dx/Rx/DC Orders Clinical Impression: Anemia, Chronic anticoagulation, History of colonoscopy with polypectomy, Acute GI bleeding [facility] Disposition Disposition: Acute Care Hospital What to do if you have Problems For any increased pain, shortness of breath, bleeding, nausea or vomiting, chest pain, or any unexpected problems, contact your Primary Care Provider. Call [facility] ([phone]) or report to the closest Emergency Room. Call 911 if necessary. 03/12/23 1623 <Electronically signed by Hugo Romo MD> Cosigner Signature (if applicable): CC: [facility] ~ Signed ADDENDUM by Dr. Toro Melendez DO on 03/12/23 at 1750 Patient signed out to me follow-up on H&H and we discussed with hospitalist for admission. H&H down to 8.4 from 9.3. No additional rectal bleeding on rediscussion. However reported was lightheaded on coming back from the bathroom. Systolic blood pressure 117. History of 2 coronary stents in the past. Last Eliquis was 7 PM yesterday nearly 24 hours ago. I discussed to start blood transfusion at least 1 unit for which she agrees. Consent will be obtained. This was relayed to the hospitalist, Dr[facility] Quan [facility] 03/12/23 1750<Electronically signed by Toro Pedroza> Cosigner Signature (if applicable): cc: [facility] ~* Signed [facility] Work Phone: 1(861) 203-997912-09-2023 History and physical note Author Arsen Quan [facility] March 12, 2023 3:23pm Note Date/Time March 12, 2023 3 :10pm [facility] Medical Records Department [address] [place] [id number] H&P Exam - Hospitalist 03/12/23 1507 MR#: [id number] Acct: [id number] Name: BRANDON KULKARNI Rep #:[id number] : 1945 77 From: Arsen ashley MD [place]: [place] [place] Status:ADM [place] [id number] HPI - General General Date of Admission: 03/12/23 HPI Narrative BRANDON KULKARNI, is a 77 M who presents to the hospital with GI bleeding. He had acolonoscopy at the end of February at [facility] where he had a couple polyps removed. He does take Eliquis for A-fib as well as aspirin. A few days after the colonoscopy he noticed some lower GI bleeding but then it went away and then it came back a few days ago and he says that it got worse this morning which is why presented to the hospital. The ED did try to attempt to discharge him back to [facility] where his general surgeon is who did a colonoscopy but they were full and could not accept any patients so we will admit him here pending possible transfer unless he worsens and he is okay with having a colonoscopy here or intervention here if that were to happen. [facility] Medical History 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 Chronic diastolic (congestive) heart failure HTN (hypertension), benign Hyperlipemia, mixed Lightheadedness Longstanding persistent atrial fibrillation Multiple premature ventricular complexes Obesity Tachy-cory syndrome Troponin I above reference range Unstable angina Home Medications cholecalciferol (vitamin D3) 50 mcg (2,000 unit) tablet 50 mcg PO DAILY SUPPLEMENT 04/13/21 [History Last Taken 02/17/23] colchicine 0.6 mg tablet 1.2 mg PO DAILY PRN gout 02/04/22 [History Last Taken 02/17/23] ferrous gluconate 324 mg (36 mg iron) tablet 324 mg PO DAILY SUPPLEMENT 02/04/22[History Last Taken 02/17/23] folic acid 1 mg tablet 2 mg PO DAILY SUPPLEMENT 02/04/22 [History Last Taken 02/17/23] methotrexate sodium 2.5 mg tablet 15 mg PO SA arthritis 02/04/22 [History Last Taken 02/12/23] apixaban 5 mg tablet 5 mg PO BID BLOOD THINNER #90 tabs 05/14/22 [Rx Last Taken 02/17/23] doxazosin 1 mg tablet 1 mg PO DAILY BLOOD PRESSURE #90 tabs 05/14/22 [Rx Last Taken 02/17/23] furosemide 40 mg tablet 40 mg PO DAILY FLUID #90 tabs 05/14/22 [Rx Last Taken 02/17/23] pantoprazole 40 mg tablet,delayed release 40 mg PO DAILY ACID REFLUX #180 tabs 05/14/22 [Rx Last Taken 02/17/23] rosuvastatin 20 mg tablet 20 mg PO DAILY CHOLESTEROL #90 tabs 05/14/22 [Rx Last Taken 02/17/23] metoprolol succinate 50 mg tablet,extended release 24 hr 50 mg PO BID BLOOD PRESSURE #180 tabs 05/27/22 [Rx Last Taken 02/17/23] allopurinol 100 mg tablet 200 mg PO DAILY GOUT 08/31/22 [History Last Taken 02/17/23] aspirin 81 mg tablet,delayed release (Adult Low Dose Aspirin) 81 mg PO DAILY HEART HEALTH 08/31/22 [History Last Taken 02/17/23] gabapentin 100 mg capsule 100 mg PO TID NEUROPATHY 08/31/22 [History Last Taken 02/17/23] prednisone 10 mg tablet 10 mg PO DAILY PRN pain 08/31/22 [History Last Taken Unknown] potassium chloride 10 mEq tablet,extended release 10 meq PO DAILY hypokalemia #30 tabs 09/02/22 [Rx Last Taken 02/17/23] acetaminophen 325 mg tablet (Tylenol) 325 mg PO Q6H PRN pain 03/12/23 [History Last Taken Unknown] lidocaine 5 % topical patch 2 patch topical DAILY pain 03/12/23 [History Last Taken Unknown] Allergy/AdvReac Type Severity Reaction Status Date / Time lisinopril Allergy Angioedema Verified 03/12/23 07:18 Penicillins [PCN] Allergy Hives Verified 03/12/23 07:18 Family History Other CVA (cerebral vascular accident) Hypertension Surgical History History of arthroscopic knee surgery History of coronary artery stent placement (09/22/20) History of left heart catheterization (02/05/22) History of permanent cardiac pacemaker placement (12/15/20) Social History Smoking Status: Former smoker ROS Constitutional Constitutional: Denies chills, fatigue, fever(s) or malaise Eyes Eyes: Denies blurry vision ENT HEENT: Denies headache(s) or nasal discharge Cardiovascular Cardiovascular: Denies chest pain, dyspnea on exertion or syncope Respiratory/Chest Respiratory/Chest: Denies cough, shortness of breath at rest or shortness of breath with exertion Gastrointestinal Gastrointestinal: Reports melena; Denies abdominal pain, constipation, diarrhea, nausea or vomiting Genitourinary Genitourinary: Denies dysuria Neurologic Neurologic: Denies focal weakness, numbness or tremor(s) Psychiatric Psychiatric: Denies anxiety or depression Vital Signs Vital Signs Vital Signs: 03/12/23 07:18 03/12/23 11:09 03/12/23 13:00 Temperature 96.6 F L Temperature Source Temporal Pulse Rate 60 60 58 L Respiratory Rate 18 16 16 Blood Pressure 178/84 H 128/82 H 155/67 H Blood Pressure Mean 115 97 96 Pulse Ox 99 100 97 Oxygen Delivery Method Room Air Room Air 03/12/23 14:49 Temperature Temperature Source Pulse Rate 58 L Respiratory Rate 18 Blood Pressure 155/67 H Blood Pressure Mean 96 Pulse Ox 98 Oxygen Delivery Method Weight Weight: 255 lb 1.6 oz Body Mass Index (BMI) 31.8 Physical Exam Narrative General: Alert, Oriented x3, Cooperative, No apparent distress HEENT: Atraumatic, PERRLA, EOMI, Normocephalic Oral: Moist Mucosa Neck: Supple, No JVD Lungs: Diminished, Normal air movement, No rhonchi, No wheeze, No rales Cardiovascular: Regular rate, Regular Rhythm, Normal S1, Normal S2, No murmurs Abdomen: Soft, Non Tender, Non-Distended, No Hepato-splenomegaly Extremities: No edema, Capillary Refill Less than 3 Seconds Skin: No rashes, No breakdown Musculoskeletal: No Tenderness to Palpation of Joints or Extremities Neurological: Cranial nerves II-XII grossly intact, Motor Exam 5/5 strength throughout, Sensory exam intact to light touch and pain Psych/Mental Status: Normal Affect, Appropriate Results Lab / Micro Data 03/12/23 07:55 03/12/23 07:55 Labs: Laboratory Results - last 24 hr 03/12/23 07:55: WBC 12.1 H, RBC 3.23 L, Hgb 9.4 L, Hct 30.5 L, MCV 94.4 H, MCH 29.1, MCHC 30.8 L, RDW Std Deviation 53.2 H, RDW Coeff of Misti 15.3 H, Plt Count 165, MPV 11.9, Sodium 138, Potassium 3.8, Chloride 105, Carbon Dioxide 28.0, Anion Gap 5, BUN 20 H, Creatinine 1.21, Estim Creat Clear Calc 63.05, Est GFR (MDRD) Af Amer 75, Est GFR (MDRD) Non-Af 62, BUN/Creatinine Ratio 16.5, Glucose 121 H, Calcium 8.7, Total Bilirubin 0.70, AST 11 L, ALT 13 L, Alkaline Phosphatase 59, Total Protein 5.9 L, Albumin 3.1 L, Globulin 2.8, Albumin/Globulin Ratio 1.1, Blood Type B POSITIVE, Antibody Screen NEGATIVE Assessment & Plan Assessment/Plan (1) Acute GI bleeding: PLAN: Plan 1. Acute lower GI bleeding/GERD ? He had a colonoscopy with polypectomy at [facility] 10 days ago he had some bleeding immediately after and then it went away and it looks like it is coming back ? He is on Eliquis and aspirin which will be held ? I did discuss the case with general surgery and they recommended keeping him on a clear liquid diet and monitoring his hemoglobin if he continues to drop will be more than happy to assist with colonoscopy however if he does not drop then we can assume that the GI bleed has stopped and he could be discharged home with holding his anticoagulation. ? We will repeat an H&H tonight at around 7 PM and then a CBC in the morning ? Can resume his home PPI 2. HTN/HLD/CAD status post stent/A-fib/chronic diastolic CHF ? Will continue with his home blood pressure medications ? It does appear that his Lasix has been on hold unclear why ? We will continue to hold his Eliquis and his aspirin secondary to his GI bleed ? Resume Crestor 3. Gout ? Stable ? Continue with allopurinol, his colchicine is on hold 4. BPH ? Stable ? Continue with doxazosin DVT: SCDs 75 minutes was spent on direct patient care, including documentation as well as chart review and collaboration with colleagues Charges/Coding Visit Charges Inpatient E&M: 20563 Init Hosp L3 03/12/23 1523 <Electronically signed by Arsen Quan MD> Cosigner Signature (if applicable): CC: Dr. Arsen Quan MD; [facility]~ Signed [facility] Work Phone: 1(207) 788-432412-01-2023 Miscellaneous Notes* Telephone Encounter - Samuel Contreras MD - 03/04/2023 4:11 PM EST FOLLOW UP ENDOSCOPY - RESULTS AND RECOMMENDATIONS NAME: Brandon Kulkarni [facility] NO.: [id number] : 1945 DATE: March 04, 2023 PRIMARY CARE PROVIDER: [facility] REFERRING PHYSICIAN: Chelita Taylor L Kulkarni is a patient referred for endoscopy [...] to the appropriate providers [facility] History and physical note Author [facility] February 17, 2023 5:13pm Note Date/Time February 17, 2023 12:55pm [facility] Medical Records Department [address] [place] [address] H&P Exam - Hospitalist 02/17/23 1254 MR#: [id number] Acct: [id number] Name: BRANDON KULKARNIOLN Rep #:[id number] : 1945 77 From: Joshua rivera DO PCP: [facility] Status:ADM IN Location: [facility] [id number] HPI - General General Date of Admission: 02/17/23 Date of Service: 02/17/23 Chief Complaint: Chest discomfort HPI Narrative BRANDON KULKARNI is a 77 M who presented to [facility] ED on 02/17/2023 with chest discomfort and anxiety. Patient seen at bedside the ED, son present. Patient sitting comfortably in bed, conversing normally, no acute distress. Patient states that he was seen in the ED 8 days ago and was found tohave COVID at that time. Primary symptoms at that time were cough and generalized fatigue. The symptoms have improved since his COVID diagnosis. However, he notes a mild chest discomfort and generalized restlessness and anxiety over the past 2 to 3 days. States the symptoms were similar to the symptoms he had in February 2022, was found to have an NSTEMI at that time. Notably, had cath done that showed patent previous stents, no intervention required. Patient otherwise denies any shortness of breath with exertion, fevers or chills, abdominal pain, lightheadedness or dizziness. No other acute concerns at this time. [facility] Medical History 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 Chronic diastolic (congestive) heart failure Lightheadedness Longstanding persistent atrial fibrillation Multiple premature ventricular complexes NSTEMI (non-ST elevated myocardial infarction) (02/04/22) Obesity Tachy-cory syndrome Troponin I above reference range Unstable angina Home Medications cholecalciferol (vitamin D3) 50 mcg (2,000 unit) tablet 50 mcg PO DAILY SUPPLEMENT 04/13/21 [History Last Taken 02/17/23] colchicine 0.6 mg tablet 1.2 mg PO DAILY PRN gout 02/04/22 [History Last Taken 02/17/23] ferrous gluconate 324 mg (36 mg iron) tablet 324 mg PO DAILY SUPPLEMENT 02/04/22[History Last Taken 02/17/23] folic acid 1 mg tablet 1 mg PO BID SUPPLEMENT 02/04/22 [History Last Taken 02/17/23] methotrexate sodium 2.5 mg tablet 15 mg PO SA arthritis 02/04/22 [History Last Taken 02/12/23] apixaban 5 mg tablet 5 mg PO BID BLOOD THINNER #90 tabs 05/14/22 [Rx Last Taken 02/17/23] doxazosin 1 mg tablet 1 mg PO DAILY BLOOD PRESSURE #90 tabs 05/14/22 [Rx Last Taken 02/17/23] furosemide 40 mg tablet 40 mg PO DAILY FLUID #90 tabs 05/14/22 [Rx Last Taken 02/17/23] pantoprazole 40 mg tablet,delayed release 40 mg PO DAILY ACID REFLUX #180 tabs 05/14/22 [Rx Last Taken 02/17/23] rosuvastatin 20 mg tablet 20 mg PO DAILY CHOLESTEROL #90 tabs 05/14/22 [Rx Last Taken 02/17/23] metoprolol succinate 50 mg tablet,extended release 24 hr 50 mg PO BID BLOOD PRESSURE #180 tabs 05/27/22 [Rx Last Taken 02/17/23] allopurinol 100 mg tablet 100 mg PO DAILY GOUT 08/31/22 [History Last Taken 02/17/23] aspirin 81 mg tablet,delayed release (Adult Low Dose Aspirin) 81 mg PO DAILY HEART HEALTH 08/31/22 [History Last Taken 02/17/23] gabapentin 100 mg capsule 100 mg PO BID NEUROPATHY 08/31/22 [History Last Taken 02/17/23] prednisone 10 mg tablet 10 mg PO DAILY PRN pain 08/31/22 [History Last Taken Unknown] potassium chloride 10 mEq tablet,extended release 10 meq PO DAILY #30 tabs 09/02/22 [Rx Last Taken 02/17/23] Allergy/AdvReac Type Severity Reaction Status Date / Time lisinopril Allergy Angioedema Verified 02/17/23 09:11 Penicillins [PCN] Allergy Hives Verified 02/17/23 09:11 Family History Other CVA (cerebral vascular accident) Hypertension Surgical History History of arthroscopic knee surgery History of coronary artery stent placement (09/22/20) History of left heart catheterization (02/05/22) History of permanent cardiac pacemaker placement (12/15/20) Social History Smoking Status: Former smoker ROS Constitutional Constitutional: Denies change in weight, chills, fatigue, fever(s) or weakness Eyes Eyes: Denies change in vision Cardiovascular Cardiovascular: Reports chest pain; Denies dyspnea on exertion, edema, lightheadedness or palpitations Respiratory/Chest Respiratory/Chest: Denies cough, shortness of breath at rest or shortness of breath with exertion Gastrointestinal Gastrointestinal: Denies abdominal pain, constipation, diarrhea, nausea or vomiting Genitourinary Genitourinary: Denies dysuria Neurologic Neurologic: Denies abnormal gait, abnormal speech, confusion, dizziness, focal weakness, numbness or paresthesias Psychiatric Psychiatric: Reports anxiety; Denies depression Vital Signs Vital Signs Vital Signs: 02/17/23 09:11 02/17/23 10:10 Temperature 98.1 F Temperature Source Temporal Pulse Rate 59 L Respiratory Rate 14 Blood Pressure 153/75 H Blood Pressure Mean 101 Pulse Ox 100 97 Oxygen Delivery Method Room Air Room Air Weight Weight: 113.1 kg Body Mass Index (BMI) 31.1 Physical Exam Const alert, oriented x3 and no apparent distress Constitutional Narrative: Pleasant elderly male, obese, sitting comfortably in bed, conversing normally, no acute distress. General Appearance: cooperative and comfortable HEENT normocephalic, head/scalp atraumatic, hearing grossly normal bilaterally, nasal mucous membranes and turbinates normal and moist oral mucous membranes Eyes PERRL, EOMs intact bilaterally and conjunctivae normal Neck full ROM, no lymphadenopathy and supple Lymph Lymphatic: no lymphadenopathy noted Chest inspection of chest normal Resp normal respiratory effort, normal air movement, no use of accessory muscles and clear to auscultation bilaterally Resp Narrative: Satting well on room air, no increased work of breathing noted. Cardio regular rate, regular rhythm, no murmurs and peripheral pulses 2+ throughout GI normal to inspection, nondistended, normoactive bowel sounds, soft to palpation, non-tender and non-distended Back/Spine normal ROM Extremity normal to inspection, full ROM and no pedal edema Skin no rashes or lesions noted Psych mental status grossly normal Results Lab / Micro Data 02/17/23 10:08 02/17/23 10:08 Labs: Laboratory Results - last 24 hr 02/17/23 10:08: WBC 8.4, RBC 3.77 L, Hgb 11.0 L, Hct 34.3 L, MCV 91.0, MCH 29.2, MCHC 32.1, RDW Std Deviation 49.5 H, RDW Coeff of Misti 15.0 H, Plt Count 218, MPV 10.7, Immature Gran % (Auto) 0.600, Neut % (Auto) 81.4 H, Lymph % (Auto) 12.1 L, [place] % (Auto) 5.1, Eos % (Auto) 0.6, Baso % (Auto) 0.2, Absolute Neuts (auto) 6.9, Absolute Lymphs (auto) 1.02, Nucleated RBC % 0, PT 16.6 H, INR 1.3, APTT 43.6 H, Sodium 139, Potassium 3.5, Chloride 102, Carbon Dioxide 31.0, Anion Gap 6, BUN 16, Creatinine 1.14, Estim Creat Clear Calc 66.92, Est GFR (MDRD) Af Amer 81, Est GFR (MDRD) Non-Af 67, BUN/Creatinine Ratio 14.0, Glucose 121 H, Calcium 9.1, Troponin I High Sens 389 H* 02/17/23 12:19: Troponin I High Sens 385 H* Radiology Impression Chest X-Ray 02/17/23 09:33 IMPRESSION: No radiographic evidence of acute cardiopulmonary disease. Electronically Signed: Eddie Gauthier MD at 10:59 EST , Chest/Abdomen/Pelvis CTA 02/17/23 10:50 IMPRESSION: 1. No evidence of aortic dissection. 2. Suboptimal enhancement of the carotid arteries. No evidence of central pulmonary embolism. 3. No acute pulmonary infiltrate or pleural effusions. 4. No focal acute inflammatory process. 5. Hepatic steatosis. Electronically Signed: Eddie Gauthier MD at 11:37 EST , Assessment & Plan Assessment/Plan (1) Non-ST elevation CO (NSTEMI): PLAN: Plan Patient is a 77-year-old male who presented to [facility] ED on 02/17/2023 with chest discomfort and anxiety. 1. NSTEMI High risk for type I NSTEMI given known history of CAD, chest discomfort on presentation, elevated troponins, apparent new T wave inversions on EKG. ? Admit under inpatient status to PCU. Cardiology consulted. Noted that patient recent NSTEMI type II secondary to COVID-19 infection about 1 week ago, may have persistently elevated troponin secondary to that. However, given his risk factors, will obtain echo for further evaluation. Based on echo results, will consider possible cardiac catheterization versus medical treatment. Can continue home Eliquis for now, no need for heparin drip. Continue home aspirin, statin, Lopressor. 2. Recent COVID?19 infection ? Symptoms have largely resolved. Stable on room air. Symptomatic treatment as needed. No need for isolation precautions at this time. Chronic medical conditions: ? History of CAD s/p stenting: Follows outpatient cardiology. Last left heart cath was in 02/2022, stents noted to be patent at that time, medical management recommended. ? Obesity: BMI 30 on admit. Encouraged lifestyle modifications. ? Persistent atrial fibrillation/flutter s/p pacemaker: EKG on admit showed V paced rhythm at 60 bpm, 4:1 atrial flutter. Stable. Continue home Eliquis, Lopressor. ? HFpEF: Last echo from 02/2022 showed EF 50 to 55%, normal LV function, mild LA enlargement, no other acute findings. Continue home Lasix 40 mg daily, potassium supplement. ? GERD: Continue home PPI. ? Gout: Continue home allopurinol and colchicine. ? Neuropathy: Continue home gabapentin. ? Arthritis: Continue home methotrexate. ? BPH: Continue home doxazosin. DVT prophylaxis: Eliquis CODE STATUS: Full code, verified Expected disposition: Home, 1 to 2 days Total clinical time spent by myself addressing the patient's medical issues, reviewing all the data, and collaborating with patient's care team: 55 minutes. Charges/Coding Visit Charges Inpatient E&M: 12062 Init Hosp L2 02/17/23 1713 <Electronically signed by Joshua Clay DO> Cosigner Signature (if applicable): CC: Dr. Joshua Clay DO; [facility]~ Signed [facility] Work Phone: 1(490) 674-661611-16-2023 Discharge summary Author Toro Le [facility] February 17, 2023 4:55pm Note Date/Time February 17, 2023 9:40am [facility] Medical Records Department [address] [place] [address] Emergency Department Summary 02/17/23 MR#: [id number] Acct: [id number] Name: BRANDON KULKARNI Rep #:[id number] : 1945 77 From: Toro Pedroza PCP: [facility],[place] Status:ADM IN Location: [address] History of Present Illness Chief Complaint: Anxiety Informant: patient Narrative Narrative: Presenting with restlessness and unable to sit still intermittently over last few days worsening this morning. He know he was seen 8 days ago with cough found to have COVID. States cough is improving. No tobacco history. History of A-fib with a pacemaker on Eliquis. History of coronary disease with stents in the past. He is on Plavix. He took his Plavix this morning. He denies any discrete chest pain symptoms or any exertional dyspnea or tightness. No radicular pain numbness arms neck or back. Further discussion with the patient,similar symptoms a year ago when he ended up with heart cath in the hospital. Hypertension, hyperlipidemia denies history of diabetes. Prior similar symptoms: Yes PFSH PFSH Medical History 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 Chronic diastolic (congestive) heart failure Lightheadedness Longstanding persistent atrial fibrillation Multiple premature ventricular complexes NSTEMI (non-ST elevated myocardial infarction) (02/04/22) Obesity Tachy-cory syndrome Troponin I above reference range Unstable angina Home Medications cholecalciferol (vitamin D3) 50 mcg (2,000 unit) tablet 50 mcg PO DAILY SUPPLEMENT 04/13/21 [History Last Taken 02/17/23] colchicine 0.6 mg tablet 1.2 mg PO DAILY PRN gout 02/04/22 [History Last Taken 02/17/23] ferrous gluconate 324 mg (36 mg iron) tablet 324 mg PO DAILY SUPPLEMENT 02/04/22[History Last Taken 02/17/23] folic acid 1 mg tablet 1 mg PO BID SUPPLEMENT 02/04/22 [History Last Taken 02/17/23] methotrexate sodium 2.5 mg tablet 15 mg PO SA arthritis 02/04/22 [History Last Taken 02/12/23] apixaban 5 mg tablet 5 mg PO BID BLOOD THINNER #90 tabs 05/14/22 [Rx Last Taken 02/17/23] doxazosin 1 mg tablet 1 mg PO DAILY BLOOD PRESSURE #90 tabs 05/14/22 [Rx Last Taken 02/17/23] furosemide 40 mg tablet 40 mg PO DAILY FLUID #90 tabs 05/14/22 [Rx Last Taken 02/17/23] pantoprazole 40 mg tablet,delayed release 40 mg PO DAILY ACID REFLUX #180 tabs 05/14/22 [Rx Last Taken 02/17/23] rosuvastatin 20 mg tablet 20 mg PO DAILY CHOLESTEROL #90 tabs 05/14/22 [Rx Last Taken 02/17/23] metoprolol succinate 50 mg tablet,extended release 24 hr 50 mg PO BID BLOOD PRESSURE #180 tabs 05/27/22 [Rx Last Taken 02/17/23] allopurinol 100 mg tablet 100 mg PO DAILY GOUT 08/31/22 [History Last Taken 02/17/23] aspirin 81 mg tablet,delayed release (Adult Low Dose Aspirin) 81 mg PO DAILY HEART HEALTH 08/31/22 [History Last Taken 02/17/23] gabapentin 100 mg capsule 100 mg PO BID NEUROPATHY 08/31/22 [History Last Taken 02/17/23] prednisone 10 mg tablet 10 mg PO DAILY PRN pain 08/31/22 [History Last Taken Unknown] potassium chloride 10 mEq tablet,extended release 10 meq PO DAILY #30 tabs 09/02/22 [Rx Last Taken 02/17/23] Allergy/AdvReac Type Severity Reaction Status Date / Time lisinopril Allergy Angioedema Verified 02/17/23 09:11 Penicillins [PCN] Allergy Hives Verified 02/17/23 09:11 Family History Other CVA (cerebral vascular accident) Hypertension Surgical History History of arthroscopic knee surgery History of coronary artery stent placement (09/22/20) History of left heart catheterization (02/05/22) History of permanent cardiac pacemaker placement (12/15/20) Social History Smoking Status: Former smoker ROS ROS ED Constitutional Constitutional ED: Denies chills, fever(s) or sweats Eyes Eyes: Denies change in vision ENT ENT ED: Denies dysphagia or sore throat Cardiovascular Cardiovascular: Denies chest pain, leg edema, palpitations or racing heartbeat Respiratory/Chest Respiratory/Chest: Denies cough, dyspnea or dyspnea on exertion Gastrointestinal Gastrointestinal: Denies abdominal pain, diarrhea, nausea or vomiting Genitourinary Genitourinary ED: Denies dysuria, hematuria or urinary frequency Musculoskeletal Musculoskeletal: Denies back pain, extremity pain or neck pain Integumentary Denies rash or wounds Neurologic Neurologic: Reports other Details: Restlessness ; Denies headache(s), paresthesias or weakness EXAM Physical Exam Const Vital Signs: 02/17/23 09:11 02/17/23 10:10 02/17/23 13:44 Temperature 98.1 F Temperature Source Temporal Pulse Rate 59 L 63 Respiratory Rate 14 16 Respiratory Effort Respiratory Depth Respiratory Pattern Blood Pressure 153/75 H 157/73 H Blood Pressure [BP] Blood Pressure Mean 101 101 Blood Pressure Mean [BP] Blood Pressure Source [BP] Blood Pressure Position [BP] Blood Pressure Location [BP] Pulse Ox 100 97 96 Oxygen Delivery Method Room Air Room Air 02/17/23 13:42 02/17/23 14:00 Temperature 98.6 F Temperature Source Tympanic Pulse Rate 60 Respiratory Rate 14 Respiratory Effort Normal Respiratory Depth Normal Respiratory Pattern Normal Blood Pressure Blood Pressure [BP] 147/75 H Blood Pressure Mean Blood Pressure Mean [BP] 99 Blood Pressure Source [BP] Monitor Blood Pressure Position [BP] Semi-Fowlers Blood Pressure Location [BP] Left Arm Pulse Ox 100 100 Oxygen Delivery Method Room Air Room Air Positive well nourished and well developed Constitutional Narrative: Nontoxic General Appearance ED: well developed and NAD HEENT Reports moist mucous membranes normocephalic and atraumatic Eyes PERRL, EOMs intact bilaterally and conjunctivae normal General Eye ED: Yes normal appearance of both eyes Neck no lymphadenopathy and supple General: Negative for tenderness Chest Wall inspection of chest normal and palpation of chest normal Chest: Negative for tenderness Resp normal respiratory effort and normal air movement Effort and Inspection: symmetric chest movement; Negative for respiratory distress Cardio regular rate, regular rhythm and no murmurs Peripheral Pulses: pulses 2+ throughout GI normal to inspection, nondistended, normoactive bowel sounds and non-tender Palpation: Negative for guarding or rebound tenderness present Back/Spine no CVA tenderness and no thoracic nor lumbar tenderness Extremity normal to inspection General Extremety ED: Negative for edema or tenderness General Extremity: Negative for edema Neuro oriented x3 and no sensory deficits noted Sensorium / Orientation: awake and alert Skin no rashes or lesions noted and no wounds MDM MDM MDM Narrative Medical decision making narrative: Interventions / MDM: Differential diagnosis: Diagnosis considered but do not suspect: N/A My EKG interpretation: Ventricular paced at 60, 4:1 atrial flutter, T wave inversions inferior lateral leads. T wave inversions are new compared to 8 days ago. Imaging independently reviewed and interpreted by myself: Chest x-ray: No acute process. CTA chest abdomen pelvis: No dissection. External documents reviewed: Follow-up cardiology office visit 02/2022. He underwent a cardiac catheterization 02/08/2022 which demonstrated stents which were patent. His left main was normal his left anterior descending artery demonstrated patency of his mid LAD stent with a small D2 branch. The rest of the LAD had minimal atherosclerosis, the circumflex artery was a large vessel which was dominant the second OM 2 had a proximal 80% stenosis in the right coronary artery had a mid 40 to 50% stenosis. Medical therapy was recommended. Troponin was 433 at that time. ED visit from 8 days ago with COVID-positive. Troponin 341, no chest symptoms or any of his current symptoms at that time. Test considered but not ordered:N/A ED course: Patient presenting for anxiety, however symptoms similar to when he had his heart cath a year ago. EKG paced however new T wave inversions were noted. Troponin checked up to 389 from the 341 8 days ago. Atypical symptoms with restlessness, sent for CTA chest abdomen pelvis to rule out dissection. Results were negative. Discussed with hospitalist Dr. Clay for admission to PCU. Repeat troponin 1 and 1 down to 385 from 389. I did speak with milling machine tender Dr. Elena to see the patient as a consult. Patient and family updated. Re-evaluation: stable Disposition discussed with patient/family/significant other: Patient Case discussed with consulting clinician: Hospitalist, milling machine tender This note was generated with Dragon dictation software. It may contain incorrect words, spelling, and punctuation that were not noted in checking the note before signing. Lab Data Attestation: I reviewed the patient's lab results. Labs: Laboratory Results - last 24 hr 02/17/23 02/17/23 10:08 12:19 WBC 8.4 RBC 3.77 L Hgb 11.0 L Hct 34.3 L MCV 91.0 MCH 29.2 MCHC 32.1 RDW Std Deviation 49.5 H RDW Coeff of Misti 15.0 H Plt Count 218 MPV 10.7 Immature Gran % (Auto) 0.600 Neut % (Auto) 81.4 H Lymph % (Auto) 12.1 L [place] % (Auto) 5.1 Eos % (Auto) 0.6 Baso % (Auto) 0.2 Absolute Neuts (auto) 6.9 Absolute Lymphs (auto) 1.02 Nucleated RBC % 0 PT 16.6 H INR 1.3 APTT 43.6 H Sodium 139 Potassium 3.5 Chloride 102 Carbon Dioxide 31.0 Anion Gap 6 BUN 16 Creatinine 1.14 Estim Creat Clear Calc 66.92 Est GFR (MDRD) Af Amer 81 Est GFR (MDRD) Non-Af 67 BUN/Creatinine Ratio 14.0 Glucose 121 H Calcium 9.1 Troponin I High Sens 389 H* 385 H* Radiography Diagnostic Testing: Clinical Impression(s) from Imaging Studies Chest X-Ray 02/17/23 09:33 IMPRESSION: No radiographic evidence of acute cardiopulmonary disease. Electronically Signed: Eddie Gauthier MD at 10:59 EST Reading Location ID and State: [facility] / [place] Tel , Service support , Chest/Abdomen/Pelvis CTA 02/17/23 10:50 IMPRESSION: 1. No evidence of aortic dissection. 2. Suboptimal enhancement of the carotid arteries. No evidence of central pulmonary embolism. 3. No acute pulmonary infiltrate or pleural effusions. 4. No focal acute inflammatory process. 5. Hepatic steatosis. Electronically Signed: Eddie Gauthier MD at 11:37 EST , Critical Care Time Critical Care Time: Yes Critical care time (excluding procedures): 30-74 minutes, Discussing w/Patient &/or Family/Footwear Machinery Instructor, Discussing w/Consultants, Arranging Admission or Transfer, Performing Direct Patient Care at Bedside and - (40 minutes) Discharge Plan Dx/Rx/DC Orders Clinical Impression: Non-ST elevation CO (NSTEMI), Longstanding persistent atrial fibrillation, Abnormal ECG Disposition Disposition: Acute Care Hospital [facility] Discharge Date/Time: 02/17/23 13:46 What to do if you have Problems For any increased pain, shortness of breath, bleeding, nausea or vomiting, chest pain, or any unexpected problems, contact your Primary Care Provider. Call [facility] ([phone]) or report to the closest Emergency Room. Call 911 if necessary. 02/17/23 1655 <Electronically signed by Toro Pedroza> Cosigner Signature (if applicable): CC: [facility] ~ Signed [facility] Work Phone: 1(954) 802-710711-16-2023 Consult note Author Gee Elena [facility] February 17, 2023 4:02pm Note Date/Time February 17, 2023 3:41pm [facility] Medical Records Department [address] [place] [id number] Consultation - Cardiology 02/17/23 1526 MR#: [id number] Acct: [id number] Name: BRANDON KULKARNI Rep #:[id number] : 1945 77 From: Gee Elena MD PCP: [facility],[place] Status:ADM KOFFI Location: [place] [address] <Statement entered by Gee Elena MD - 02/17/23 16:00> Pt seen & evaluated w/CHARLEE. I personally interviewed & exam the pt. I was involved in all aspects of pt's orders, interpretation of results & treatment Documented by User: Jasmin Adams PA, PA 02/17/23 15:42 Assessment & Plan Assessment/Plan (1) COVID-19: (2) HTN (hypertension), benign: (3) Hyperlipemia, mixed: (4) NSTEMI (non-ST elevated myocardial infarction): (5) History of permanent cardiac pacemaker placement: (6) 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: QUALIFIERS: [place] vs. transplanted heart: [place] heart QualifiedCode(s): I25.10 - 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 (7) History of coronary artery stent placement: HPI Consult Data Date of Consult: 02/17/23 HPI Narrative HPI Narrative: BRANDON KULKARNI, is a 77 M who presented to [facility] on 02/17/23 with restlessness and unable to sit still. Symptoms were going on over the last few day but worseningthis morning. He was concerned about these symptoms as they were similar to what he had prior to his heart cath last year. Heart cath at that time demonstrated stents which were patent. His left main was normal his left anterior descending artery demonstrated patency of his mid LAD stent with a small D2 branch. The rest of the LAD had minimal atherosclerosis, the circumflex artery was a large vessel which was dominant the second OM 2 had a proximal 80% stenosis in the right coronary artery had a mid 40 to 50% stenosis. Medical therapy was recommended. Troponin was 433 at that time. Troponin today is 389/385. He did have COVID 8 days ago. He was seen in the ER for this, troponinwas done, this was 341. He does have a history diastolic heart failure, hypertension, chronic persistentatrial fibrillation, CAD with previous angioplasty and stenting. He has a dual-chamber pacemaker implanted in December 2020 when he was being taken care of [facility]. It was at that time that he underwent the previous stenting tohis LAD which was due to an abnormal calcium score. Echocardiogram in 02/2022 demonstrated a preserved EF. [facility] Medical History 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 Chronic diastolic (congestive) heart failure Lightheadedness Longstanding persistent atrial fibrillation Multiple premature ventricular complexes NSTEMI (non-ST elevated myocardial infarction) (02/04/22) Obesity Tachy-cory syndrome Troponin I above reference range Unstable angina Home Medications cholecalciferol (vitamin D3) 50 mcg (2,000 unit) tablet 50 mcg PO DAILY SUPPLEMENT 04/13/21 [History Last Taken 02/17/23] colchicine 0.6 mg tablet 1.2 mg PO DAILY PRN gout 02/04/22 [History Last Taken 02/17/23] ferrous gluconate 324 mg (36 mg iron) tablet 324 mg PO DAILY SUPPLEMENT 02/04/22[History Last Taken 02/17/23] folic acid 1 mg tablet 1 mg PO BID SUPPLEMENT 02/04/22 [History Last Taken 02/17/23] methotrexate sodium 2.5 mg tablet 15 mg PO SA arthritis 02/04/22 [History Last Taken 02/12/23] apixaban 5 mg tablet 5 mg PO BID BLOOD THINNER #90 tabs 05/14/22 [Rx Last Taken 02/17/23] doxazosin 1 mg tablet 1 mg PO DAILY BLOOD PRESSURE #90 tabs 05/14/22 [Rx Last Taken 02/17/23] furosemide 40 mg tablet 40 mg PO DAILY FLUID #90 tabs 05/14/22 [Rx Last Taken 02/17/23] pantoprazole 40 mg tablet,delayed release 40 mg PO DAILY ACID REFLUX #180 tabs 05/14/22 [Rx Last Taken 02/17/23] rosuvastatin 20 mg tablet 20 mg PO DAILY CHOLESTEROL #90 tabs 05/14/22 [Rx Last Taken 02/17/23] metoprolol succinate 50 mg tablet,extended release 24 hr 50 mg PO BID BLOOD PRESSURE #180 tabs 05/27/22 [Rx Last Taken 02/17/23] allopurinol 100 mg tablet 100 mg PO DAILY GOUT 08/31/22 [History Last Taken 02/17/23] aspirin 81 mg tablet,delayed release (Adult Low Dose Aspirin) 81 mg PO DAILY HEART HEALTH 08/31/22 [History Last Taken 02/17/23] gabapentin 100 mg capsule 100 mg PO BID NEUROPATHY 08/31/22 [History Last Taken 02/17/23] prednisone 10 mg tablet 10 mg PO DAILY PRN pain 08/31/22 [History Last Taken Unknown] potassium chloride 10 mEq tablet,extended release 10 meq PO DAILY #30 tabs 09/02/22 [Rx Last Taken 02/17/23] Allergy/AdvReac Type Severity Reaction Status Date / Time lisinopril Allergy Angioedema Verified 02/17/23 09:11 Penicillins [PCN] Allergy Hives Verified 02/17/23 09:11 Family History Other CVA (cerebral vascular accident) Hypertension Surgical History History of arthroscopic knee surgery History of coronary artery stent placement (09/22/20) History of left heart catheterization (02/05/22) History of permanent cardiac pacemaker placement (12/15/20) Social History Smoking Status: Former smoker Risk Stratification Risk Stratification Applicable: No Charges/Coding Visit Charges Office Visits / Consults: 13163 IP Consult L4 Objective Data Vital Signs: Vital Signs Temp Pulse Resp BP Pulse Ox O2 Del Method 98.6 F 63 16 157/73 H 96 Room Air 02/17/23 13:42 02/17/23 13:44 02/17/23 13:44 02/17/23 13:44 02/17/23 13:44 02/17/23 13:42 Oxygen Delivery Method Room Air Weight: 246 lb 0.574 oz Body Mass Index (BMI) 30.7 Intake & Output: Intake and Output for Last 24 Hours 02/15/23 02/16/23 02/17/23 23:59 23:59 23:59 Intake Total 500 / 500 Balance 500 / 500 Lab / Micro Data 02/17/23 10:08 02/17/23 10:08 Labs: Laboratory Results - last 24 hr 02/17/23 10:08: WBC 8.4, RBC 3.77 L, Hgb 11.0 L, Hct 34.3 L, MCV 91.0, MCH 29.2, MCHC 32.1, RDW Std Deviation 49.5 H, RDW Coeff of Misti 15.0 H, Plt Count 218, MPV 10.7, Immature Gran % (Auto) 0.600, Neut % (Auto) 81.4 H, Lymph % (Auto) 12.1 L, [place] % (Auto) 5.1, Eos % (Auto) 0.6, Baso % (Auto) 0.2, Absolute Neuts (auto) 6.9, Absolute Lymphs (auto) 1.02, Nucleated RBC % 0, PT 16.6 H, INR 1.3, APTT 43.6 H, Sodium 139, Potassium 3.5, Chloride 102, Carbon Dioxide 31.0, Anion Gap 6, BUN 16, Creatinine 1.14, Estim Creat Clear Calc 66.92, Est GFR (MDRD) Af Amer 81, Est GFR (MDRD) Non-Af 67, BUN/Creatinine Ratio 14.0, Glucose 121 H, Calcium 9.1, Troponin I High Sens 389 H* 02/17/23 12:19: Troponin I High Sens 385 H* Cardiology Labs/Tests 02/17/23 10:08: WBC 8.4, RBC 3.77 L, Hgb 11.0 L, Hct 34.3 L, MCV 91.0, MCH 29.2, MCHC 32.1, Plt Count 218, MPV 10.7, Immature Gran % (Auto) 0.600, Neut % (Auto) 81.4 H, Lymph % (Auto) 12.1 L, [place] % (Auto) 5.1, Eos % (Auto) 0.6, Baso % (Auto) 0.2, Absolute Neuts (auto) 6.9, Nucleated RBC % 0, PT 16.6 H, INR 1.3, APTT 43.6 H, Sodium 139, Potassium 3.5, Chloride 102, Carbon Dioxide 31.0, Anion Gap 6, BUN 16, Creatinine 1.14, Est GFR (MDRD) Af Amer 81, Est GFR (MDRD) Non-Af 67, BUN/Creatinine Ratio 14.0, Glucose 121 H, Calcium 9.1 Rhythm: EKG: ECHO: Stress Test: Cardiac Cath: PCI: CT Surgery: Holter monitor: EPS: PPM: CXR: Chest CT Scan: Radiography Diagnostic Testing: Radiology Impression Chest X-Ray 02/17/23 09:33 IMPRESSION: No radiographic evidence of acute cardiopulmonary disease. Electronically Signed: Eddie Gauthier MD at 10:59 EST , Chest/Abdomen/Pelvis CTA 02/17/23 10:50 IMPRESSION: 1. No evidence of aortic dissection. 2. Suboptimal enhancement of the carotid arteries. No evidence of central pulmonary embolism. 3. No acute pulmonary infiltrate or pleural effusions. 4. No focal acute inflammatory process. 5. Hepatic steatosis. Electronically Signed: Eddie Gauthier MD at 11:37 EST , Documented by User: Dr. Gee Elena MD 02/17/23 16:00 Assessment & Plan Assessment/Plan (1) COVID-19: (2) HTN (hypertension), benign: (3) Hyperlipemia, mixed: (4) NSTEMI (non-ST elevated myocardial infarction): (5) History of permanent cardiac pacemaker placement: (6) 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: QUALIFIERS: [place] vs. transplanted heart: [place] heart Qualified Code(s): I25.10 - 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 (7) History of coronary artery stent placement: PLAN: 77-year-old patient with multiple comorbidities History of CAD with prior PCI and stent of LAD/drug-eluting stent to the mid LAD In 2020. This presentation was patient was restless however no symptoms of chest pain reported Recently had COVID-19 for 1 week History of hypertension Hyperlipidemia history of a pacemaker Had recent non-ST elevation CO. Noted he had elevated cardiac biomarkers. Currently he is on apixaban 5 mg twice a day in addition to low-dose aspirin. Patient currently on Prednisone, methotrexate, rosuvastatin on review of the record noted he had persistent elevation of high sensitive troponin Will evaluate this patient by echocardiogram as he had a recent COVID-19 And will discuss further plan based on his clinical progression. With possible cardiac catheterization versus medical treatment. HPI Consult Data Date of Consult: 02/17/23 [facility] Medical History 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 Chronic diastolic (congestive) heart failure Lightheadedness Longstanding persistent atrial fibrillation Multiple premature ventricular complexes NSTEMI (non-ST elevated myocardial infarction) (02/04/22) Obesity Tachy-cory syndrome Troponin I above reference range Unstable angina Home Medications cholecalciferol (vitamin D3) 50 mcg (2,000 unit) tablet 50 mcg PO DAILY SUPPLEMENT 04/13/21 [History Last Taken 02/17/23] colchicine 0.6 mg tablet 1.2 mg PO DAILY PRN gout 02/04/22 [History Last Taken 02/17/23] ferrous gluconate 324 mg (36 mg iron) tablet 324 mg PO DAILY SUPPLEMENT 02/04/22[History Last Taken 02/17/23] folic acid 1 mg tablet 1 mg PO BID SUPPLEMENT 02/04/22 [History Last Taken 02/17/23] methotrexate sodium 2.5 mg tablet 15 mg PO SA arthritis 02/04/22 [History Last Taken 02/12/23] apixaban 5 mg tablet 5 mg PO BID BLOOD THINNER #90 tabs 05/14/22 [Rx Last Taken 02/17/23] doxazosin 1 mg tablet 1 mg PO DAILY BLOOD PRESSURE #90 tabs 05/14/22 [Rx Last Taken 02/17/23] furosemide 40 mg tablet 40 mg PO DAILY FLUID #90 tabs 05/14/22 [Rx Last Taken 02/17/23] pantoprazole 40 mg tablet,delayed release 40 mg PO DAILY ACID REFLUX #180 tabs 05/14/22 [Rx Last Taken 02/17/23] rosuvastatin 20 mg tablet 20 mg PO DAILY CHOLESTEROL #90 tabs 05/14/22 [Rx Last Taken 02/17/23] metoprolol succinate 50 mg tablet,extended release 24 hr 50 mg PO BID BLOOD PRESSURE #180 tabs 05/27/22 [Rx Last Taken 02/17/23] allopurinol 100 mg tablet 100 mg PO DAILY GOUT 08/31/22 [History Last Taken 02/17/23] aspirin 81 mg tablet,delayed release (Adult Low Dose Aspirin) 81 mg PO DAILY HEART HEALTH 08/31/22 [History Last Taken 02/17/23] gabapentin 100 mg capsule 100 mg PO BID NEUROPATHY 08/31/22 [History Last Taken 02/17/23] prednisone 10 mg tablet 10 mg PO DAILY PRN pain 08/31/22 [History Last Taken Unknown] potassium chloride 10 mEq tablet,extended release 10 meq PO DAILY #30 tabs 09/02/22 [Rx Last Taken 02/17/23] Allergy/AdvReac Type Severity Reaction Status Date / Time lisinopril Allergy Angioedema Verified 02/17/23 09:11 Penicillins [PCN] Allergy Hives Verified 02/17/23 09:11 Family History Other CVA (cerebral vascular accident) Hypertension Surgical History History of arthroscopic knee surgery History of coronary artery stent placement (09/22/20) History of left heart catheterization (02/05/22) History of permanent cardiac pacemaker placement (12/15/20) Social History Smoking Status: Former smoker Physical Exam Cardio Cardio Narrative: Review the current evaluation here in the hospital Including the EKG gambling monitor as well as his current lab Patient had recent COVID-19 Physical exam is deferred to minimize spread of COVID-19. Lab / Micro Data 02/17/23 10:08 02/17/23 10:08 02/17/23 1602 <Electronically signed by Gee Elena MD> Cosigner Signature (if applicable): 02/17/23 1542 <Electronically signed by Jasmin PATIÑO> CC: Dr. Gee Elena MD; [facility]~ Signed [facility] Work Phone: 1(498) 446-829411-13-2023 Instructions* Patient Instructions* Lakesha Kent, BARREL SCRAPER.MEDICAL LIAISON - 02/14/2023 8:59 AM EST PATIENT PREOPERATIVE INSTRUCTIONS Samuel Contreras MD has scheduled you for your procedure at this surgery center: [facility]: [phone] -- [address] [facility] [address]. Please read below carefully for your personalized [...] with a small sip of water PEG 8207-Qugfunutyzm-Fec C (MOVIPREP) 100-7.5-2.691 gram furosemide (LASIX) 40 [...] or other anticoagulants without consulting with your milling machine tender or prescribing physician. - Stop Vitamin E, [...] Procedures: - YOU MUST HAVE A RESPONSIBLE BRILLIANDEER LOPPER TAKE YOU HOME. A CONTINUOUS PICKLING LINE PICKLER HELPER OR PUBLIC RELATIONS SPECIALIST CANNOT BE MADE A RESPONSIBLE BRILLIANDEER LOPPER. - We recommend that a responsible person stays with you overnight to take care of you. - You cannot stay in a hotel alone after outpatient surgery. You will not be permitted to have yoursurgery, if you do not have someone to [...] Advance Directive, please fax a copy to [phone] or email to for it to be added to your chart. If you do not have an Advance Directive, you can find the appropriate form and more information at [email or web address]. We recommend that youcomplete the Advance Directive form found on the website and bring it with you the day of your surgery. It can be witnessed and scanned into your chart that day. Lakesha Kent APRN.ISABELLE documented [facility] History and physical note * Lakesha Kent APRN.ISABELLE - 02/14/2023 8:55 AM EST Images from the original note were not included. HISTORY AND PHYSICAL EXAMINATION SERVICE DATE: 02/14/2023 SERVICE TIME: 1:34 PM PRIMARY CARE PHYSICIAN: Lele Esparza MD, MD Assessment Patient has the following medical conditions which may affect marisa-operative course: Coronary artery disease involving upper [place] coronary artery of upper [place] heart without angina pectoris Assessment: s/p stents, daily Eliquis and ASA, following [facility] 08/31/2022 Jesse Grace CNP Essential hypertension [...] unspecified (HCC) Assessment: Daily Prednisone, MTX, following [facility], Dr. Larios Hypokalemia Assessment: on [...] equal to 35 kg/m^2 STOP-Bang Score: 5 [id number] Score: Age: >=75 Sex: male CHF history: Yes Hypertension history: Yes Stroke/TIA/thromboembolism history: No Vascular disease history: Yes Diabetes history: Yes [id number] Score: 6 ARISCAT Score: Age: 51-80 Preoperative [...] Gonzalez present: no Lip Bite Test: I Microretrognathia/Micronagthia/Recessed Chin: No DENTAL Dentures, upper: complete. Dentures, [...] for colonoscopy at the request of Dr. Samuel Contreras for consultation. My final recommendation will [...] Chronic A-Fib (Hcc) Coronary Artery Disease Involving [place] Coronary Artery of [place] Heart Without Angina Pectoris Chronic Diastolic Heart [...] referred for endoscopy. Brandon notes no colon complaints.Patient denies any change in bowel habits, weight changes, blood in stools, black tarry stools or abdominal pain. NOTES family history of colon cancer in a first-degree relative. The patient notes no upper GI complaints. Brandon has undergone prior endoscopy. Last colonoscopy 06/11/2019, scanned reports reviewed. Proceduredone under monitored anesthetic care. Patient was found [...] had to go off of blood thinners short- term, records not currently available for review. Patient's medical history is significant for diabetes mellitus, atrial fibrillation, s/p pacemaker placement and cardiac stents, hypertension, hyperlipidemia. Patient follows with Dr. Esparza in primary care and Dr. Richardson in cardiology. Patient denies chest pain, shortness of breath or recent hospitalizations. REVIEW OF SYSTEMS: General: No weight loss, malaise or fevers. Neurological: No history of TIA's, stroke, LATHE SET UP PERSON tumor, impaired sensorium, hemiplegia, paraplegia orquadraplegia. No neurological symptoms or problems. Respiratory: No [...] pain, CHF, congenital heart defect, DVT/PE, recent CO, murmur/valvular heart disease, open heart surgery and [...] for: chronic anti-coagulation/platelet meds. Patient is on anti- coagulation/platelet medication(s): DOAC and Aspirin. Negative for: anemia, [...] for: back pain and rheumatoid arthritis. Patient's section maintainer is Harriet. Skin: Negative for lesions, rash [...] by mouth once daily. Taking Yes PEG 2540-Qskvklqxsuy-Ujw C (MOVIPREP) 100-7.5-2.691 gram Take by mouth one time only. Will take forcolon prep Taking Yes furosemide (LASIX) 40 mg [...] No medication comments found. ALLERGIES Allergen Reactions Keith Inhibitors Anaphylaxis Atorvastatin Unknown Lisinopril Swelling Penicillin [...] or any previous visit (from the past 99219 hour(s)). Prepared for Surgery: optimally prepared for [...] instructions and voices comprehension and compliance. SIGNATURE: Lakesha Kent APRN.CNP PATIENT NAME: Brandon Kulkarni DATE: February 14, 2023 TIME: 8:55 AM PAGER/CONTACT #: documented in this encounterEast [facility]11-06-2023 Miscellaneous Notes* Telephone Encounter - Destiny Victoria LPN - 02/07/2023 12:25 PM EST Called and spoke with patient regarding missed PACC appt at 1040am. He states he forgot he had an appt today and would like to get it rescheduled. Please reach out to patient. Colonoscopy 03/02/23. Destiny Victoria LPN documented in this encounterEast [facility]09-[facility]23 History of Present illness Narrative* Chelita Oliveira PA-C - 12/22/2022 8:47 AM EDT HISTORY AND PHYSICAL Brandon Kulkarni 1945 REFERRING PHYSICIAN: Administration, * CHIEF COMPLAINT: Consult (colonoscopy) HPI: The patient [...] endoscopy. Last colonoscopy 06/11/2019, scanned reports reviewed. Proceduredone under monitored anesthetic care. Patient was found [...] had to go off of blood thinners short- term, records not currently available for review. Patient's [...] current facility-administered medications for this visit. ALLERGIES: Keith Inhibitors, Atorvastatin, Lisinopril, and Penicillin PERSONAL HISTORY: [...] entered by the nurse and reviewed by nd Nursing Notes: Jackelin Retana RN 12/22/2022 8:46 [...] C (97.2 F), height 190.5 cm (6' 3), weight 115.3 kg (254 lb 3.2 oz), SpO2 99 %. There is no height or weight on file to calculate BMI. HEENT: Normal cephalic, ataumatic, pupils are equally round, sclera are anicteric, mucous membranesare moist, oropharynx is clear. Neck has no [...] Will plan for lower endoscopy. We discussed therisks and benefits of the planned endoscopy. I have informed the patient that complications can occur including failure to complete the endoscopy and perforation. The patient had the opportunity to ask questions concerning the planned endoscopy. My staff has also explained the procedure to the patient in understandable terms and has given the patient printed material concerning the procedure. Thepatient freely consents to surgery. Patient notes already has [facility] The patient has medical comorbidities for which we will plan for the procedure to be performed under Monitored Anesthetic Care. 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 Solo Madrigal for an opinion regarding colonoscopy. My final recommendations will be communicated back to the requesting physician by way of shared Medical record or letter to requesting physician via US mail. Chelita Oliveira PA-C documented in this encounterEast [facility]09-20-2023 Nurse Note* Jackelin Retana RN - 12/22/2022 8:43 AM EDT REVIEW OF SYSTEMS: General: The patient denies [...] 06/11/2019 Jackelin Retana RN documented in this [facility]11-[facility]22 Evaluation note* Diagnosis Onset Date Resolution Status Chronic diastolic (congestive) heart failure chronic NSTEMI (non-ST elevated myoc ardial infarction) February 04, 2022 resolved History of permanent cardiac pacemaker placement December 15, 2020 acute HTN (hypertension), benign a cute Hyperlipemia, mixed acute Chronic diastolic (congestive) heart failure chronic History of coronary artery stent placement September 22, 2020 chronic Longstanding persistent atrial fibrillation chronic History of permanent cardiac pacemaker placement December 15, 2020 acute Chronic diastolic (congestive) heart failure chronic Longstanding persistent atrial fibrillation chronic Tachy-cory syndrome [facility] Work Phone: 1(892) 420-344609-13-2021 Evaluation note* Diagnosis Onset Date Resolution Status Chronic diastolic (congestive) heart failure chronic History of permanent cardiac pacemaker placement December 15, 2020 chronic Longstanding persistent atrial fibrillation chronic Tachy-cory syndrome chronic Chronic diastolic (congestive) heart failure chronic History of permanent cardiac pacemaker placement December 15, 2020 chronic Longstanding persistent atrial fibrillation chronic Tachy-cory syndrome chronic HTN (hypertension), benign a cute Hyperlipemia, mixed acute Chronic diastolic (congestive) heart failure chronic History of coronary artery stent placement September 22, 2020 chronic History of permanent cardiac pacemaker placement December 15, 2020 chronic Longstanding persistent atrial fibrillation [facility] Work Phone: 1(454) 219-250809-13-2021 Evaluation note* Diagnosis Onset Date Resolution Status Chronic diastolic (congestive) heart failure chronic History of permanent cardiac pacemaker placement December 15, 2020 chronic Longstanding persistent atrial fibrillation chronic Tachy-cory syndrome chronic HTN (hypertension), benign a cute Hyperlipemia, mixed acute Chronic diastolic (congestive) heart failure chronic History of coronary artery stent placement September 22, 2020 chronic History of permanent cardiac pacemaker placement December 15, 2020 chronic Longstanding persistent atrial fibrillation [facility] Work Phone: 1(606) 745-467809-13-2021 Evaluation note* Diagnosis Onset Date Resolution Status Chronic diastolic (congestive) heart failure chronic History of permanent cardiac pacemaker placement December 15, 2020 chronic Longstanding persistent atrial fibrillation chronic Tachy-cory syndrome chronic Chest discomfort acute [facility] Work Phone: 1(934) 353-984509-13-2021 Evaluation note* Diagnosis Onset Date Resolution Status Chronic diastolic (congestive) heart failure chronic History of permanent cardiac pacemaker placement December 15, 2020 chronic Longstanding persistent atrial fibrillation chronic Tachy-cory syndrome chronic Abnormal ECG acute COVID-19 acute HTN (hypertension), benign a cute Hyperlipemia, mixed acute NSTEMI (non-ST elevated myoc ardial infarction) February 04, 2022 resolved Atherosclerotic heart diseas e of upper [place] coronary artery without angina pectoris chronic History of coronary artery stent placement September 22, 2020 chronic History of permanent cardiac pacemaker placement December 15, 2020 chronic Longstanding persistent atrial fibrillation [facility] Work Phone: 1(181) 532-175309-01-2021 Note. MICRO - Microbiology PROCEDURE: Blood Culture (bacterial) [...] Locations *1: This test was performed at: [facility], [address] [place] [address], [facility] , [facility] ([place])Comment on above:Performed By: #### CBL #### [address] [id number] Note. MICRO - Microbiology PROCEDURE: Blood Culture (bacterial) [*1] SOURCE: Blood BODY SITE: COLLECTED DATE/TIME: 11/26/2020 14:26 EDT RECEIVED DATE/TIME: 11/26/2020 20:45 EDT START DATE/TIME: 11/26/2020 20:46 EDT FREE TEXT SOURCE: aerobic bottle only FINAL REPORTS Final Report [] Verified Date/Time/Personnel: 12/01/2020 08:08 EDT Rhizobium radiobacter Isolated from aerobe bottle only. PRELIMINARY REPORTS Preliminary Report [] Verified Date/Time/Personnel: 11/30/2020 10:43 EDT Rhizobium radiobacter Isolated from aerobe bottle only. MARGARITA to follow Preliminary Report [] Verified Date/Time/Personnel: 11/29/2020 14:00 EDT Culture results pending. Preliminary Report [] Verified Date/Time/Personnel: 11/27/2020 12:13 EDT No growth to date Preliminary Report [] Verified Date/Time/Personnel: 11/26/2020 22:00 EDT Culture has been received in lab and is no growth to date. Routine cultures are held for 5 days. STAINS GSAER [] Verified Date/Time/Personnel: 11/29/2020 14:00 EDT Gram Negative Rods SUSCEPTIBILITY RESULTS Rhizobium radiobacter Antibiotic MARGARITA Dilut MARGARITA Inter Aztreonam <=4 Susceptible Ciprofloxacin <=0.25 Susceptible Gentamicin <=2 Susceptible Levofloxacin <=0.5 Susceptible Meropenem <=1 Susceptible Piperacillin/ <=8 Susceptible Tazobactam Tobramycin <=2 Susceptible Trimethoprim/ <=0.5/9.5 Susceptible Sulfa Performing Locations *1: This test was performed at: [facility], [address] [place] [address], [facility]- , [facility] ([place])Comment on above:Performed By: #### CBL #### [place] [id number] note Author Courtney Mejia [facility] March 15, 2023 1:17pm Note Date/Time March 15, 2023 1:17pm [facility] Medical Records Department [address] [place] [address] Counseling Note - Pharmacy 03/15/23 1316 MR#: [id number] Acct: [id number] Name: BRANDON KULKARNI Rep #:[id number] : 1945 77 From: Courtney Mejia [place] [place] Status:ADM IN Y Location: MS3 [id number] Pharmacy [place] Med Reconciliation Pharmacy Service has performed discharge medication reconciliation for this patient. The patient's discharge medication list was reviewed for discrepancies and discrepancies were resolved. Medications at Discharge Home Medications cholecalciferol (vitamin D3) 50 mcg (2,000 unit) tablet 50 mcg PO DAILY SUPPLEMENT 04/13/21 colchicine 0.6 mg tablet 1.2 mg PO DAILY PRN gout 02/04/22 ferrous gluconate 324 mg (36 mg iron) tablet 324 mg PO DAILY SUPPLEMENT 02/04/22 folic acid 1 mg tablet 2 mg PO DAILY SUPPLEMENT 02/04/22 methotrexate sodium 2.5 mg tablet 15 mg PO SA arthritis 02/04/22 apixaban 5 mg tablet 5 mg PO BID BLOOD THINNER #90 tabs 05/14/22 doxazosin 1 mg tablet 1 mg PO DAILY BLOOD PRESSURE #90 tabs 05/14/22 furosemide 40 mg tablet 40 mg PO DAILY FLUID #90 tabs 05/14/22 pantoprazole 40 mg tablet,delayed release 40 mg PO DAILY ACID REFLUX #180 tabs 05/14/22 rosuvastatin 20 mg tablet 20 mg PO DAILY CHOLESTEROL #90 tabs 05/14/22 metoprolol succinate 50 mg tablet,extended release 24 hr 50 mg PO BID BLOOD PRESSURE #180 tabs 05/27/22 allopurinol 100 mg tablet 200 mg PO DAILY GOUT 08/31/22 gabapentin 100 mg capsule 100 mg PO TID NEUROPATHY 08/31/22 prednisone 10 mg tablet 10 mg PO DAILY PRN pain 08/31/22 potassium chloride 10 mEq tablet,extended release 10 meq PO DAILY hypokalemia #30 tabs 09/02/22 acetaminophen 325 mg tablet (Tylenol) 325 mg PO Q6H PRN pain 03/12/23 lidocaine 5 % topical patch 2 patch topical DAILY pain 03/12/23 03/15/23 1317 <Electronically signed by Courtney Mejia> Date _ Courtney Mejia Cosigner Signature (if applicable): Date CC: ~ Signed [facility] Work Phone: Consult note Author Pavel Hogan [facility] July 16, 2023 11:09am Note Date/Time July 16, 2023 11: 09am [facility] Medical Records Department [address] [place] [address] Consultation - Cardiology 07/16/23 1049 MR#: [id number] Acct: [id number] Name: BRANDON KULKARNI Rep #:[id number] : 1945 77 From: Pavel Hogan MD PCP: [facility] Status:REG ER Location: ED Assessment & Plan Assessment/Plan (1) Troponin I above reference range: PLAN: The patient's troponins are 281 and then decreased to 274 on the delta troponin. The patient has a history of being admitted in February 2023 with troponins in the 380 range which were also flat. A cath at that point in time is documented above. There is small vessel disease but only amenable to medicaltherapy. I feel we should add Imdur to his medical regiment given his small vessel coronary disease. I discussed the situation in detail with the patient in the emergency departmentstaff. I feel the patient can be discharged to home with the addition of Imdur to his medical regimen. He does continue to wheeze and I believe that majority of his symptoms are related to his pulmonary situation he complains primarily ofthe reason he came in was a cough. On physical exam he does continue to wheeze and has poor air movement. The EKG is a chronically paced rhythm. His last pacemaker check confirmed chronic persistent atrial fibs/flutter with a ventricular paced rhythm. (2) Atrial fibrillation: QUALIFIERS: Atrial fibrillation type: permanent Qualified Code(s): I48.21 - Permanent atrial fibrillation PLAN: The atrial fibrillation is felt to be chronic. His pacemaker check June 2023 revealed persistent atrial fibrillation with an ventricular paced rate of 60. His EKG reveals the same thing in the emergency department today. The patient remains on Eliquis. His heart rate is well-controlled on his metoprolol dose. 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 (3) HTN (hypertension), benign: PLAN: Blood pressures improved once that his breathing status has improved. He should be continued on his current medical therapy. (4) Tachy-cory syndrome: PLAN: Patient is status post permanent pacemaker implant followed in the [facility] device clinic (5) SOB (shortness of breath): PLAN: The shortness of breath and cough was the primary reason for the patient coming in. This has been ongoing for 6 days. He does report it feels better after his aerosol treatment. But he continues to to wheeze. I did discuss further treatment options with the emergency department. Also discussed with the patient he should follow-up with his OR pulmonary team to expedite the delivery of his aerosol treatment equipment. PLAN: Plan 1. Add Imdur 30 mg every morning to the medical regimen. I did inform him about the likelihood of transient headaches which can be treated with Tylenol. 2. Continue other current medical regiment. 3. Should follow-up per previous arranged appointment with the [facility] office. 4. If his symptoms increase he was encouraged to return to the emergency department. I feel that given his history of his enzymes actually being lower now than they were in February when he had a documented catheterization with no significant change in his coronary anatomy that he can be cleared from a cardiovascular standpoint to be discharged home. I went over this in detail with the patient and he was agreeable with this plan. HPI Consult Data Date of Consult: 07/16/23 HPI Narrative HPI Narrative: BRANDON KULKARNI, is a 77 M who presents with a history of shortness of breath that started approximately a week ago. The patient has a history of COPD coronary disease and a permanent pacemaker. He also carries a history of permanent atrial fibs/flutter. The patient reports that the symptoms are similar to what he experienced when his stents were deployed. This was several years ago. The patient was recentlyadmitted in February 2023 with a similar episode primarily described as shortness of breath was coughing just like what he is having today. It is difficult to get an accurate history about how he actually presented back prior to his stenting procedure. In February 2023 his enzymes were in the 380 range theyremained flat on the delta troponin. He underwent left heart catheterization which showed that his stents were widely patent but he had small vessel disease and a second diagonal which was jailed within the stent in the LAD and he had disease in a small OM 2 branch of 80%. Both of these branches were too small tointervene upon. The patient has remained on Eliquis uninterrupted with a baby aspirin for his atrial fibrillation and coronary disease. The patient is also on metoprolol and rosuvastatin in his home environment. The patient's primary complaint at this time is shortness of breath and coughing. His troponins first set was 281 it went down to 274 on the delta troponin. The patient's O2 sat is 95% after aerosol treatments his heart rate is 60 his blood pressure in the 150/70 range. The patient denies any chest tightness or chest pain. He denies any PND orthopnea denies any lower extremityedema. [facility] he reports he is a non-smoker. He is in the process of getting DME for aerosol machine in his home. [facility] Medical History (Updated 07/16/23 @ 11:[address] Pavel Hogan MD) Anemia Anemia 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 Atrial fibrillation Back pain due to injury Bleeding tendency Chronic anticoagulation Chronic diastolic (congestive) heart failure GERD (gastroesophageal reflux disease) GI bleed High cholesterol History of stress test HTN (hypertension), benign Hyperlipemia, mixed Irregular heartbeat Lightheadedness Longstanding persistent atrial fibrillation Multiple premature ventricular complexes Obesity Pacemaker Rheumatoid arthritis Skin cancer Syncope Tachy-cory syndrome Troponin I above reference range Unstable angina Home Medications cholecalciferol (vitamin D3) 50 mcg (2,000 unit) tablet 50 mcg PO DAILY SUPPLEMENT 04/13/21 [History Last Taken 07/16/23] colchicine 0.6 mg tablet 1.2 mg PO DAILY PRN gout 02/04/22 [History Last Taken 07/16/23] ferrous gluconate 324 mg (36 mg iron) tablet 324 mg PO DAILY SUPPLEMENT 02/04/22[History Last Taken 07/16/23] folic acid 1 mg tablet 2 mg PO DAILY SUPPLEMENT 02/04/22 [History Last Taken 07/16/23] apixaban 5 mg tablet 5 mg PO BID BLOOD THINNER #90 tabs 05/14/22 [Rx Last Taken 07/16/23] doxazosin 1 mg tablet 1 mg PO DAILY BLOOD PRESSURE #90 tabs 05/14/22 [Rx Last Taken 07/16/23] pantoprazole 40 mg tablet,delayed release 40 mg PO DAILY ACID REFLUX #180 tabs 05/14/22 [Rx Last Taken 07/16/23] rosuvastatin 20 mg tablet 20 mg PO DAILY CHOLESTEROL #90 tabs 05/14/22 [Rx Last Taken 07/16/23] allopurinol 100 mg tablet 200 mg PO DAILY GOUT 08/31/22 [History Last Taken 07/16/23] gabapentin 100 mg capsule 100 mg PO TID NEUROPATHY 08/31/22 [History Last Taken 07/16/23] acetaminophen 325 mg tablet (Tylenol) 325 mg PO Q6H PRN pain 03/12/23 [History Last Taken 07/16/23] lidocaine 5 % topical patch 2 patch topical DAILY pain 03/12/23 [History Last Taken 07/16/23] aspirin 81 mg chewable tablet 81 mg PO DAILY #30 tabs 03/15/23 [Rx Last Taken 07/16/23] metoprolol succinate 50 mg tablet,extended release 24 hr 75 mg (1.5 x 50 mg) PO BID #90 tabs 04/25/23 [Rx Last Taken 07/16/23] albuterol sulfate 90 mcg/actuation aerosol inhaler (Ventolin HFA) 2 puff inhalation Q4H PRN PRN Wheezing ##1 05/26/23 [Rx Last Taken 07/16/23] benzonatate 200 mg capsule 200 mg PO TID PRN cough #14 caps 05/26/23 [Rx Last Taken 07/16/23] guaifenesin 1,200 mg tablet, extended release 12 hr (Mucinex) 1,200 mg PO BID PRN congestion #10 tabs 05/26/23 [Rx Last Taken 07/16/23] Allergy/AdvReac Type Severity Reaction Status Date / Time lisinopril Allergy Angioedema Verified 05/26/23 13:34 Penicillins [PCN] Allergy Hives Verified 05/26/23 13:34 Family History Other CVA (cerebral vascular accident) Hypertension Surgical History H/O cardiac catheterization History of appendectomy History of arthroscopic knee surgery History of colonoscopy with polypectomy History of coronary artery stent placement (09/22/20) History of heart artery stent History of left heart catheterization (02/05/22) History of permanent cardiac pacemaker placement (12/15/20) Social History Smoking Status: Former smoker ROS Constitutional Constitutional: Reports as per HPI Eyes Eyes: Reports systems reviewed and no addt'l complaints, except as documented ENT HEENT: Reports systems reviewed and no addt'l complaints, except as documented Cardiovascular Cardiovascular: Reports as per HPI Respiratory/Chest Respiratory/Chest: Reports as per HPI Gastrointestinal Gastrointestinal: Reports systems reviewed and no addt'l complaints, except as documented Genitourinary Genitourinary: Reports systems reviewed and no addt'l complaints, except as documented Musculoskeletal Musculoskeletal: Reports systems reviewed and no addt'l complaints, except as documented Integumentary Integumentary: Reports systems reviewed and no addt'l complaints, except as documented Neurologic Neurologic: Reports systems reviewed and no addt'l complaints, except as documented Psychiatric Psychiatric: Reports systems reviewed and no addt'l complaints, except as documented Endocrine Endocrinology: Reports systems reviewed and no addt'l complaints, except as documented Hematologic/Lymphatic Hematologic/Lymphatic: Reports systems reviewed and no addt'l complaints, except as documented Allergic/Immunologic Allergic/Immunologic: Reports systems reviewed and no addt'l complaints, except as documented Physical Exam Const alert and oriented x3 HEENT normocephalic Eyes EOMs intact bilaterally Neck no JVD Carotids: Negative for bruit Chest inspection of chest normal Chest: left pectoral incision Resp normal respiratory effort Auscultation: rhonchi lower bilaterally and wheezes expiratory wheezes, inspiratory wheezes and upper bilaterally Cardio regular rate, regular rhythm, S1 normal heart sound, S2 normal heart sound, no murmurs, no rub and no gallops Cardio Narrative: Distant heart tones Peripheral Pulses: radial pulses present GI GI Narrative: Protuberant abdomen with normal bowel sounds Extremity no pedal edema Skin no rashes or lesions noted Neuro Neuro Narrative: Alert and oriented x 3 his ability to recall exact events is somewhat limited. He does not appear to grasp the significance of comparing his symptoms at various time frames. Psych mental status grossly normal Risk Stratification Risk Stratification Applicable: Yes Age >/= 65: Yes >/= 3 CAD Risk Factors (HTN, HLD, DM, family hx of CAD, or current smoker): No Aspirin Use in the Past 7 Days: Yes Severe Angina (>/= episodes in 24 hours): No EKG ST Changes >/= 0.5mm: No Positive Cardiac Marker: Yes TERRY Risk Stratification Score: 3 TERRY % Risk: 13% Risk Charges/Coding Visit Charges OBSV E&M: 43101 Observ/hosp same date L3 Objective Data Vital Signs: Vital Signs Temp Pulse Resp BP Pulse Ox O2 Del Method 98 F 72 15 135/68 H 94 Room Air 07/16/23 10:00 07/16/23 10:00 07/16/23 10:00 07/16/23 10:00 07/16/23 10:00 07/16/23 10:00 Oxygen Delivery Method Room Air Lab / Micro Data Attestation: I reviewed the patient's lab results. 07/16/23 08:19 07/16/23 08:19 Labs: Laboratory Results - last 24 hr 07/16/23 08:19: WBC 8.1, RBC 4.02 L, Hgb 11.0 L, Hct 34.8 L, MCV 86.6, MCH 27.4, MCHC 31.6 L, RDW Std Deviation 58.8 H, RDW Coeff of Misti 19.2 H, Plt Count 162, MPV 12.1 H, Immature Gran % (Auto) 0.500, Neut % (Auto) 67.9, Lymph % (Auto) 15.1 L, [place] % (Auto) 15.5 H, Eos % (Auto) 0.5, Baso % (Auto) 0.5, Absolute Neuts (auto) 5.5, Absolute Lymphs (auto) 1.22, Nucleated RBC % 0, Differential Comment SCANNED, Reactive Lymphocytes 1+, Sodium 137, Potassium 3.5, Chloride 102, Carbon Dioxide 30.0, Anion Gap 5, BUN 17, Creatinine 1.21, Est GFR (MDRD) Af Amer 75, Est GFR (MDRD) Non-Af 62, BUN/Creatinine Ratio 14.0, Glucose 126 H, Calcium 8.8, Troponin I High Sens 281 H*, B-Natriuretic Peptide 398.9 H 07/16/23 09:32: Troponin I High Sens 274 H* Micro: Microbiology 07/16/23 08:19 Mucosa - Nose SARS-CoV-2, Influenza & RSV (PCR) - Final RSV Rhythm Strip Rhythm Strip: A-fib Rate: 60 Ectopy: - (Electronically paced rhythm.) Cardiology Labs/Tests 07/16/23 08:19: WBC 8.1, RBC 4.02 L, Hgb 11.0 L, Hct 34.8 L, MCV 86.6, MCH 27.4, MCHC 31.6 L, Plt Count 162, MPV 12.1 H, Immature Gran % (Auto) 0.500, Neut % (Auto) 67.9, Lymph % (Auto) 15.1 L, [place] % (Auto) 15.5 H, Eos % (Auto) 0.5, Baso % (Auto) 0.5, Absolute Neuts (auto) 5.5, Nucleated RBC % 0, Sodium 137, Potassium 3.5, Chloride 102, Carbon Dioxide 30.0, Anion Gap 5, BUN 17, Creatinine 1.21, Est GFR (MDRD) Af Amer 75, Est GFR (MDRD) Non-Af 62, BUN/Creatinine Ratio 14.0, Glucose 126 H, Calcium 8.8, B-Natriuretic Peptide 398.9 H Rhythm: EKG: ECHO: Stress Test: Cardiac Cath: PCI: CT Surgery: Holter monitor: EPS: PPM: CXR: Chest CT Scan: Radiography Diagnostic Testing: Radiology Impression Chest X-Ray 07/16/23 07:59 IMPRESSION: No active disease. Cardiomegaly. Electronically Signed: Samuel Lam MD at 8:41 EDT , 07/16/23 1100 <Electronically signed by Pavel Hogan MD> Cosigner Signature (if applicable): CC: [facility]~ Signed [facility] Work Phone: Discharge summary Author Joshua Clay [facility] February 18, 2023 2:49pm Note Date/Time February 18, 2023 2:47pm [facility] Medical Records Department [address] [place] [id number] Instructions for Home/Discharge Instructions 02/18/23 1446 MR#: [id number] Acct: [id number] Name: BRANDON KULKARNI Rep #:[id number] : 1945 77 From: Joshua rivera DO PCP: [facility] Status:ADM IN Discharge Instructions Diet Discharge Diet: No restrictions Activity Discharge Activity: Return to Normal Activity Weight Bearing Status: Full weight bearing Follow Up Care Test Results: Test results from this visit will be discussed in further detail at your follow- up appointment, if applicable. Discharge Plan Admission Admit Date/Time: 02/17/23 16:23 Primary Reason for Your Visit: Chest discomfort, anxiety Attending Provider: Joshua Clay Primary Care Provider: [facility] Consulting Providers: Gee Elena Instructions Additional Instructions / Restrictions: Continue all home medications as previously prescribed. Follow-up with your primary care doctor as needed. Discharge Orders/Prescriptions Prescriptions: Continued aspirin [Adult Low Dose Aspirin] 81 mg tablet,delayed release (DR/EC) 81 mg PO DAILY gabapentin 100 mg capsule 100 mg PO BID cholecalciferol (vitamin D3) 50 mcg (2,000 unit) Tablet 50 mcg PO DAILY allopurinol 100 mg tablet 100 mg PO DAILY methotrexate sodium 2.5 mg Tablet 15 mg PO SA folic acid 1 mg tablet 1 mg PO BID colchicine 0.6 mg tablet 1.2 mg PO DAILY PRN (Reason: gout) ferrous gluconate 324 mg (36 mg iron) Tablet 324 mg PO DAILY prednisone 10 mg tablet 10 mg PO DAILY PRN (Reason: pain ) apixaban 5 mg tablet 5 mg PO BID Qty: 90 3RF doxazosin 1 mg tablet 1 mg PO DAILY Qty: 90 3RF furosemide 40 mg tablet 40 mg PO DAILY Qty: 90 3RF rosuvastatin 20 mg tablet 20 mg PO DAILY Qty: 90 3RF pantoprazole 40 mg tablet,delayed release (DR/EC) 40 mg PO DAILY Qty: 180 3RF metoprolol succinate 50 mg tablet extended release 24 hr 50 mg PO BID Qty: 180 3RF potassium chloride 10 mEq tablet extended release 10 meq PO DAILY Qty: 30 11RF Hold Instructions: MD Ordered Referrals / Follow Up: [facility] [Primary Care Provider] - Disposition Disposition (needs filled in before D/C Order can be placed): Home, Self Care 02/18/23 7282<Electronically signed by Joshua Clay DO>Joshua Clay DO CC: Dr. Gee Elena [facility]; [facility] ~ Signed [facility] Work Phone: Discharge summary Author Anh Salinas [facility] March 15, 2023 12:40pm Note Date/Time March 15, 2023 12:40pm [facility] Medical Records Department [address] [place] [address] Instructions for Home/Discharge Instructions 03/15/23 1239 MR#: [id number] Acct: [id number] Name: BRANDON KULKARNI Rep #:[id number] : 1945 77 From: Anh Salinas MD PCP: [facility] Status:ADM IN Discharge Instructions Diet Discharge Diet: Low fat / Low cholesterol Activity Discharge Activity: Return to Normal Activity Weight Bearing Status: Weight bearing as tolerated Dressing / Incision Call your doctor if you observe: Fever of 101 or Higher, Shortness of breath, Dizziness, Swelling in the ankles, Chest pain, Increased palpitations (irregularheartbeat) and - (rectal bleeding) Follow Up Care Test Results: Test results from this visit will be discussed in further detail at your follow- up appointment, if applicable. Discharge Plan Admission Admit Date/Time: 03/12/23 14:33 Primary Reason for Your Visit: lower GI bleed Attending Provider: Anh Salinas Primary Care Provider: [facility] Consulting Providers: Pavel Atkins; Arsen Quan; Evan Burns Instructions Patient Instructions: ED Lower GI Bleeding (Stable) Additional Instructions / Restrictions: Please resume Eliquis on 03/16/2023. Discharge Orders/Prescriptions Prescriptions: Continued gabapentin 100 mg capsule 100 mg PO TID cholecalciferol (vitamin D3) 50 mcg (2,000 unit) Tablet 50 mcg PO DAILY allopurinol 100 mg tablet 200 mg PO DAILY methotrexate sodium 2.5 mg Tablet 15 mg PO SA Hold Instructions: Ordered folic acid 1 mg tablet 2 mg PO DAILY colchicine 0.6 mg tablet 1.2 mg PO DAILY PRN (Reason: gout) Hold Instructions: Ordered ferrous gluconate 324 mg (36 mg iron) Tablet 324 mg PO DAILY Hold Instructions: MD Ordered prednisone 10 mg tablet 10 mg PO DAILY PRN (Reason: pain ) Hold Instructions: MD Ordered lidocaine 5 % adhesive patch,medicated 2 patch topical DAILY Rx Instructions: leave on most painful area for up to 12 hrs acetaminophen [Tylenol] 325 mg tablet 325 mg PO Q6H PRN (Reason: pain) apixaban 5 mg tablet 5 mg PO BID Qty: 90 3RF doxazosin 1 mg tablet 1 mg PO DAILY Qty: 90 3RF furosemide 40 mg tablet 40 mg PO DAILY Qty: 90 3RF Hold Instructions: MD Ordered rosuvastatin 20 mg tablet 20 mg PO DAILY Qty: 90 3RF pantoprazole 40 mg tablet,delayed release (DR/EC) 40 mg PO DAILY Qty: 180 3RF metoprolol succinate 50 mg tablet extended release 24 hr 50 mg PO BID Qty: 180 3RF potassium chloride 10 mEq tablet extended release 10 meq PO DAILY Qty: 30 11RF Hold Instructions: MD Ordered Discontinued aspirin [Adult Low Dose Aspirin] 81 mg tablet,delayed release (DR/EC) 81 mg PO DAILY Referrals / Follow Up: [facility] [Primary Care Provider] - Within 2 Weeks Disposition Disposition (needs filled in before D/C Order can be placed): Home, Self Care 03/15/23 1240<Electronically signed by Anh Salinas MD>Anh Salinas MD CC: Dr. Evan Burns DO; Dr. Pavel Atkins MD; Dr. Arsen Quan MD; [facility] ~ Signed [facility] Work Phone: Evaluation note* Diagnosis Pain of hand, unspecified laterality- Primary documented in this encounter [facility] Work Phone: Evaluation noteNo assessment information available [facility] Work Phone: Evaluation note* Diagnosis Dyspnea, unspecified type- Primary Dyspnea, unspecified type [facility] Diagnosis Onset Date Resolution Status Atrial fibrillation acute Chest pain acute Elevated troponin acute [facility] Work Phone: Evaluation note* Diagnosis Onset Date Resolution Status Atrial fibrillation acute CAD (coronary artery disease) acute Chest pain acute Elevated troponin acute NSTEMI (non-ST elevated myocardial infarction) acute Racing heart beat acute Chronic diastolic (congestive) heart failure chronic Hypertension chronic Paroxysmal atrial fibrillation chronic [facility] Work Phone: Evaluation note* Diagnosis History of colonic polyps- Primary Personal history of colonic polyps Pacemaker Cardiac pacemaker in situ Family history of colon cancer Family history of malignant neoplasm of gastrointestinal tract On continuous oral anticoagulation Long-term (current) use of anticoagulants 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 documented in this encounter [facility] note* Diagnosis OPENED IN ERROR- Primary To allow closing an encounter opened in error (used in SmartSet) documented in this encounter [facility] note* Diagnosis Pre-operative examination- Primary Preoperative examination, unspecified Coronary artery disease involving upper [place] coronary artery of upper [place] heart without angina pectoris Essential hypertension Unspecified [...] 31.9 in adult documented in this encounter [facility] note* Diagnosis Onset Date Resolution Status Chronic diastolic (congestive) heart failure chronic Tachy-cory syndrome chronic Abnormal ECG resolved COVID-19 resolved Non-ST elevation CO (NSTEMI) resolved Acute GI bleeding acute Anemia acute Chronic anticoagulation acut e History of colonoscopy with polypectomy acute [facility] Work Phone: Evaluation note* Diagnosis Onset Date Resolution Status Chronic diastolic (congestive) heart failure chronic Tachy-cory syndrome chronic Abnormal ECG resolved COVID-19 resolved Non-ST elevation CO (NSTEMI) resolved Acute GI bleeding resolved [facility] Work Phone: Evaluation note* Diagnosis Onset Date Resolution Status Abnormal ECG resolved COVID-19 resolved Non-ST elevation CO (NSTEMI) resolved Acute GI bleeding resolved Chronic diastolic (congestive) heart failure chronic [facility] Work Phone: Evaluation note* Diagnosis Onset Date Resolution Status Acute GI bleeding resolved Chronic diastolic (congestive) heart failure chronic [facility] Work Phone: Evaluation note* Diagnosis Onset Date Resolution Status HTN (hypertension), benign a cute Chronic diastolic (congestive) heart failure chronic [facility] Work Phone: Evaluation note* Diagnosis Onset Date Resolution Status HTN (hypertension), benign a cute Chronic diastolic (congestive) heart failure chronic HTN (hypertension), benign a cute Chronic diastolic (congestive) heart failure [facility] Work Phone: Evaluation note* Diagnosis Dyspnea, unspecified type- Primary Dyspnea, unspecified type [facility] Diagnosis Dyspnea, unspecified type [facility]* Diagnosis Onset Date Resolution Status Admit Date Anemia acute September 03, 2024 9:30am SOB (shortness of breath) acute September 03, 2024 9:30am Chronic diastolic (congestive) heart failure chronic September 03, 2024 9:30am History of permanent cardiac pacemaker placement December 15, 2020 chronic September 03 9:30am HTN (hypertension), benign chronic September 03, 2024 9:30am Hyperlipemia, mixed chronic September 03, 2024 9:30am History of coronary artery stent placement September 22, 2020 inactive September 03, 2024 9:30am Longstanding persistent atrial fibrillation inactive September 03 9:30am [facility] Work Phone: Hospital Discharge instructions* Instructions* Chyna Hernandez MD - [...] prescribed and follow-upas recommended. documented in this [facility] Work Phone: Hospital Discharge instructions Additional Instructions As discussed, your episodes are possibly related to your atrial fibrillation. It is common that people with atrial fibrillation have episodes of racing heart. They will be able to interrogate your pacemaker further at your doctors appointment. At this point however cardiology's recommendation is not to adjust your medications. Please continue the metoprolol and your blood thinner apixaban. If you get more episodes please try to take your heart rate by checking your pulse. Should you develop chest pain passing out or almost passing out or new/worsening symptoms please return to emergency. Please make sure you are taking your metoprolol 50 mg twice a day. I wrote a prescription for some extra doses in case you need some until your next delivery.[facility] Work Phone: Reason for referral (narrative)No reason for [facility] of Present Illness * Lele Esparza MD - 05/10/2019 3:41 PM EST Brandonanthony Kulkarni 73 y.o. 1945 male Reason for [...] file Gets together: Not on file Attends christianity service: Not on file Active member of [...] 10 at 9 AM at surgery center. Lele Esparza MD documented in this encounter* Lele Esparza MD - 06/27/2019 2:40 PM EDT [...] Surgical History: Procedure Laterality Date CARDIAC CATHETERIZATION 2018 COLONOSCOPY COLONOSCOPY N/A 06/11/2019 Procedure: COLONOSCOPY WITH POLYPECTOMY; Surgeon: Lele Esparza MD; [place] [facility] [place] Service: Gastroenterology TOTAL KNEE REPLACEMENT ( LILLIAN [...] file Gets together: Not on file Attends christianity service: Not on file Active member of [...] Report 06/11/2019 Final Value:Surgical Pathology Report Case: [id number] Authorizing Provider: Lele Esparza, Collected: 06/11/2019 09:07 AM Ordering Location: [facility] Surgery Received: 06/11/2019 10:45 AM Center Periop [...] will need repeat colonoscopy in 3 years. Lele Esparza MD documented in this encounter Assessments [...] Adenomatous polyp of descending colon Advance Directives Documents on File Type Date Recorded Patient Media Sales Executive Expl anation Advance Directives and Living Will Documents on File Type Date Recorded Patient Media Sales Executive Expl anation Advance Directives and Livin g Will 06/11/2019 7:49 AM Documents on File Type Date Recorded Patient Media Sales Executive Expl anation Advance Directives and Livin g Will 06/11/2019 7:49 AM Advance Directive Response Recorded Date/ Time Advance Directives Yes August 30 5 8:07pm Living Will No April 13 11:39am Power of Onsite Case Manager No April 13, 2021 11:39am Advance Directive Response Recorded Date/ Time Name of Medical Power of Onsite Case Manager Ray Kulkarni February 04, 2022 10:30am Advance Directives Yes August 30 8:07pm Living Will Yes February 04 10:30am Power of Onsite Case Manager Yes February 04, 2022 10:30am Advance Directive Response Recorded Date/ Time Name of Medical Power of Onsite Case Manager Ray Kulkarni February 04, 2022 1:19pm Advance Directives Yes August 30 8:07pm Living Will Yes February 04 1:19pm Power of Onsite Case Manager Yes February 04, 2022 1:19pm Advance Directive Response Recorded Date/ Time Name of Medical Power of Onsite Case Manager Ray Kulkarni February 04, 2022 12:19pm Advance Directives Yes August 30 7:07pm Living Will Yes February 04 12:19pm Power of Onsite Case Manager Yes February 04, 2022 12:19pm Advance Directive Response Recorded Date/ Time Advance Directives Yes August 30 5 8:07pm Living Will Yes February 04 1:19pm Power of Onsite Case Manager Yes February 04, 2022 1:19pm Advance Directive Response Recorded Date/ Time Name of Medical Power of Onsite Case Manager Ray Kulkarni February 09, 2023 8:05am Advance Directives Yes August 30 5 7:07pm Living Will No February 17, 023 10:24am Power of Onsite Case Manager No February 17, 2023 10:24am Advance Directive Response Recorded Date/ Time Name of Medical Power of Onsite Case Manager Ray Kulkarni February 09, 2023 8:05am Advance Directives Yes August 30 5 7:07pm Living Will No February 17, 2 023 1:42pm Power of Onsite Case Manager No February 17, 2023 1:42pm Advance Directive Response Recorded Date/ Time Name of Medical Power of Onsite Case Manager Ray Kulkarni February 09, 2023 8:05am Name of Medical Power of Onsite Case Manager Ray Kulkarni March 12, 2023 7:49pm Advance Directives Yes August 30 7:07pm Living Will Yes March 12 7:49pm Power of Onsite Case Manager Yes March 12, 2023 7:49pm Advance Directive Response Recorded Date/ Time Name of Medical Power of Onsite Case Manager Ray Kulkarni February 09, 2023 8:05am Name of Medical Power of Onsite Case Manager Ray Kulkarni March 12, 2023 7:49pm Advance Directives Yes August 30 7:07pm Living Will No March 27 023 8:06am Power of Onsite Case Manager No March 27, 2023 8:06am Advance Directive Response Recorded Date/ Time Name of Medical Power of Onsite Case Manager Ray Kulkarni February 09, 2023 8:05am Name of Medical Power of Onsite Case Manager Ray Kulkarni March 12, 2023 7:49pm Name of Medical Power of Onsite Case Manager Ray Kulkarni May 26, 2023 1:57pm Advance Directives Yes August 30 7:07pm Living Will Yes May 26, 024 1:57pm Power of Onsite Case Manager Yes May 26, 2023 1:57pm Advance Directive Response Recorded Date/ Time Name of Medical Power of Onsite Case Manager Ray Kulkarni March 12, 2023 8:49pm Name of Medical Power of Onsite Case Manager Ray Kulkarni May 26, 2023 2:57pm Advance Directives Yes August 30 5 8:07pm Living Will Yes May 26, 024 2:57pm Power of Onsite Case Manager Yes May 26, 2023 2:57pm Advance Directive Response Recorded Date/ Time Name of Medical Power of Onsite Case Manager Ray Kulkarni May 26, 2023 2:57pm Advance Directives Yes August 30 5 8:07pm Living Will Yes July 16, 2023 8:03am Power of Onsite Case Manager No July 15 8:03am Advance Directive Response Recorded Date/ Time Living Will Yes July 16, 2023 8:03am Do you have a Healthcare Power of Onsite Case Manager? No July 16, 2023 8:03am Advance Directives Yes August 30 8:07pm Advance Directive Response Recorded Date/ Time Living Will Yes July 16, 2023 8:03am Do you have a Healthcare Power of Onsite Case Manager? No July 16, 2023 8:03am Do you have a Healthcare Power of Onsite Case Manager? Yes December 05, 2024 8:04pm Name of Medical Power of Onsite Case Manager RAY KULKARNI December 05, 2024 8:04pm Advance Directives Yes August 30 8:07pm Summary Purpose Family History Relationship Condition Age at Onset Recorded Date/T romero Not Specified Hypertension Unknown Cerebrovascular accident (CVA) Unknown Relationship Condition Age at Onset Recorded Date/T romero mother Hypertension Unknown Malignant neoplasm Unknown father Cerebrovascular accident (CVA) Unknown Dementia Unknown Discharge Instructions * Attachments The following attachments cannot be sent through Care Everywhere. * Colon Polyps (Indian) * High-Fiber Diet (Indian) documented in this encounter Reason for Referral Specialty Diagnoses / Procedures Referred By Contac t Referred To Contact Radiology Diagnoses Dyspnea, unspecified type Procedures XR CHEST 2 VIEW PA+LAT Maria Fernanda Evans APRN-CNP [address] [place] [address] [facility] DI[facility]NOST[facility] RADIOLOG[facility] [address] [facility] [place] [address] Referral ID Status Reason Start Date Expiration Date Visits Re quested Visits Authorized [id number] Closed 11/06/2021 11/06/2022 1 1 Specialty Diagnoses / Procedures Referred By Contac t Referred To Contact Radiology Diagnoses Dyspnea, unspecified type Procedures XR CHEST PA+LAT 2 VIEWS Ji Caldera [address] [facility] [place] [address] [facility]OLOG[facility] [address] [facility] [place] [address] Referral ID Status Reason Start Date Expiration Date Visits Re quested Visits Authorized [id number] Closed 10/26/2023 10/25/2024 1 1 Chief Complaint and Reason for Visit Chief Complaint PAIN- COPY PCP Chief Complaint PAIN- COPY PCP ELEVATED TROPONIN Reason for Visit Atrial fibrillation Chest pain Elevated troponin Chief Complaint PAIN- COPY PCP ELEVATED TROPONIN ELEVATED TROPONIN ELEVATED TROPONIN ELEVATED TROPONIN ELEVATED TROPONIN Reason for Visit Atrial fibrillation CAD (coronary artery disease) Chest pain Elevated troponin NSTEMI (non-ST elevated myocardial infarction) Racing heart beat Chronic diastolic (congestive) heart failure Hypertension Paroxysmal atrial fibrillation Chief Complaint ELEVATED TROPONIN ELEVATED TROPONIN ELEVATED TROPONIN ELEVATED TROPONIN ELEVATED TROPONIN s/p pacer/ a-fib/CHF/ CAD/ ref [facility] 4 wk remote pacer check PAIN -COPY PCP Reason for Visit Chronic diastolic (c ongestive) heart failure NSTEMI (non-ST elevated myocardial infarction) History of permanent cardiac pacemaker placement HTN (hypertension), benign Hyperlipemia, mixed Chronic diastolic (congestive) heart failure History of coronary artery stent placement Longstanding persistent atrial fibrillation History of permanent cardiac pacemaker placement Chronic diastolic (congestive) heart failure Longstanding persistent atrial fibrillation Tachy-cory syndrome Chief Complaint PAIN -COPY PCP REMOTE CHECK STANDING ORDER 5 m fu/ 11am w JHR 6 M FU/ 10:30 w SHAHLA alcaraz Reason for Visit Chronic diastolic (c ongestive) heart failure History of permanent cardiac pacemaker placement Longstanding persistent atrial fibrillation Tachy-cory syndrome Chronic diastolic (congestive) heart failure History of permanent cardiac pacemaker placement Longstanding persistent atrial fibrillation Tachy-cory syndrome HTN (hypertension), benign Hyperlipemia, mixed Chronic diastolic (congestive) heart failure History of coronary artery stent placement History of permanent cardiac pacemaker placement Longstanding persistent atrial fibrillation Chief Complaint STANDING ORDER 5 m fu/ 11am w JHR 6 M FU/ 10:30 w SHAHLA alcaraz Reason for Visit Chronic diastolic (c ongestive) heart failure History of permanent cardiac pacemaker placement Longstanding persistent atrial fibrillation Tachy-cory syndrome HTN (hypertension), benign Hyperlipemia, mixed Chronic diastolic (congestive) heart failure History of coronary artery stent placement History of permanent cardiac pacemaker placement Longstanding persistent atrial fibrillation Chief Complaint 3 mos remote PPM f/u general illness ANXIETY Reason for Visit Chronic diastolic (c ongestive) heart failure History of permanent cardiac pacemaker placement Longstanding persistent atrial fibrillation Tachy-cory syndrome Chest discomfort Chief Complaint 3 mos remote PPM f/u general illness Anxiety CHEST DISCOMFORT Reason for Visit Chronic diastolic (c ongestive) heart failure History of permanent cardiac pacemaker placement Longstanding persistent atrial fibrillation Tachy-cory syndrome Abnormal ECG COVID-19 HTN (hypertension), benign Hyperlipemia, mixed NSTEMI (non-ST elevated myocardial infarction) 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 History of coronary artery stent placement History of permanent cardiac pacemaker placement Longstanding persistent atrial fibrillation Chief Complaint 3 mos remote PPM f/u general illness Anxiety CHEST DISCOMFORT CHEST DISCOMFORT LOWER GI BLEED LOWER GI BLEED LOWER GI BLEED LOWER GI BLEED LOWER GI BLEED LOWER GI BLEED LOWER GI BLEED Reason for Visit Chronic diastolic (c ongestive) heart failure Tachy-cory syndrome Abnormal ECG COVID-19 Non-ST elevation CO (NSTEMI) Acute GI bleeding Anemia Chronic anticoagulation History of colonoscopy with polypectomy Chief Complaint 3 mos remote PPM f/u general illness Anxiety CHEST DISCOMFORT CHEST DISCOMFORT LOWER GI BLEED LOWER GI BLEED LOWER GI BLEED PREOP LOWER GI BLEED LOWER GI BLEED LOWER GI BLEED LOWER GI BLEED LOWER GI BLEED Pacer Check Remote PALPITATIONS Reason for Visit Chronic diastolic (c ongestive) heart failure Tachy-cory syndrome Abnormal ECG COVID-19 Non-ST elevation CO (NSTEMI) Acute GI bleeding Chief Complaint general illness Anxiety CHEST DISCOMFORT CHEST DISCOMFORT LOWER GI BLEED LOWER GI BLEED LOWER GI BLEED PREOP LOWER GI BLEED LOWER GI BLEED LOWER GI BLEED LOWER GI BLEED LOWER GI BLEED Pacer Check Remote PALPITATIONS S/P [facility] 12/24 S/O- PAIN COPY PCP Reason for Visit Abnormal ECG COVID-19 Non-ST elevation CO (NSTEMI) Acute GI bleeding Chronic diastolic (congestive) heart failure Chief Complaint general illness Anxiety CHEST DISCOMFORT CHEST DISCOMFORT LOWER GI BLEED LOWER GI BLEED LOWER GI BLEED PREOP LOWER GI BLEED LOWER GI BLEED LOWER GI BLEED LOWER GI BLEED LOWER GI BLEED Pacer Check Remote PALPITATIONS S/P [facility] 12/24 S/O- PAIN COPY PCP Pacer Check Remote COUGH Reason for Visit Abnormal ECG COVID-19 Non-ST elevation CO (NSTEMI) Acute GI bleeding Chronic diastolic (congestive) heart failure Chief Complaint LOWER GI BLEED LOWER GI BLEED LOWER GI BLEED PREOP LOWER GI BLEED LOWER GI BLEED LOWER GI BLEED LOWER GI BLEED LOWER GI BLEED Pacer Check Remote PALPITATIONS S/P [facility] 12/24 S/O- PAIN COPY PCP Pacer Check Remote COUGH Pacer Check Remote LB PAIN Reason for Visit Acute GI bleeding Chronic diastolic (congestive) heart failure Chief Complaint PALPITATIONS S/P [facility] 12/24 S/O- PAIN COPY PCP Pacer Check Remote COUGH Pacer Check Remote LB PAIN shortness of breath shortness of breath Reason for Visit HTN (hypertension), benign Chronic diastolic (congestive) heart failure Chief Complaint S/P [facility] 03/27 S/O- PAIN COPY PCP Pacer Check Remote COUGH Pacer Check Remote LB PAIN shortness of breath shortness of breath 3 M FU COPY PCP - STANDING ORDER Reason for Visit HTN (hypertension), benign Chronic diastolic (congestive) heart failure HTN (hypertension), benign Chronic diastolic (congestive) heart failure Chief Complaint Admit Date Pacer Check Remote June 07, 2024 1:03 am Pacer Check Remote June 21, 2024 10: 20am Pacer Check Remote June 21, 2024 10: 25am 10 m fu September 03, 2024 9:30a m Reason for Visit Admit Date Anemia September 03, 2024 9:30a m SOB (shortness of breath) September 03, 2024 9:30am Chronic diastolic (congestive) heart yamilka lure September 03, 2024 9:30am History of permanent cardiac pacemaker p lacement September 03, 2024 9:30am HTN (hypertension), benign September 03 9:30am Hyperlipemia, mixed September 03, 2024 9:30a m History of coronary artery stent placeme nt September 03, 2024 9:30am Longstanding persistent atrial fibrillat ion September 03, 2024 9:30am Chief Complaint Admit Date Pacer Check Remote June 07, 2024 1:03 am Pacer Check Remote June 21, 2024 10: 20am Pacer Check Remote June 21, 2024 10: 25am 10 m fu September 03, 2024 9:30a m INT LAB ORDERS September 03, 2024 10:31 am Chief Complaint Admit Date Pacer Check Remote June 07, 2024 1:03 am Pacer Check Remote June 21, 2024 10: 20am Pacer Check Remote June 21, 2024 10: 25am 10 m fu September 03, 2024 9:30a m INT LAB ORDERS September 03, 2024 10:31 am Pacer Check Remote September 12, 2024 12:1 1am Chief Complaint Admit Date 10 m fu September 03, 2024 9:30a m INT LAB ORDERS September 03, 2024 10:31 am Pacer Check Remote September 12, 2024 12:1 1am 3 M FU December 04, 2024 12:54pm Reason for Visit Admit Date Anemia September 03, 2024 9:30a m SOB (shortness of breath) September 03, 2024 9:30am Chronic diastolic (congestive) heart yamilka lure September 03, 2024 9:30am History of coronary artery stent placeme nt September 03, 2024 9:30am History of permanent cardiac pacemaker p lacement September 03, 2024 9:30am HTN (hypertension), benign September 03 9:30am Hyperlipemia, mixed September 03, 2024 9:30a m Longstanding persistent atrial fibrillat ion September 03, 2024 9:30am Anemia December 04, 2024 12:54pm SOB (shortness of breath) December 04, 2024 12:54pm Chronic diastolic (congestive) heart yamilka lure December 04, 2024 12:54pm History of coronary artery stent placeme nt December 04, 2024 12:54pm History of permanent cardiac pacemaker p lacement December 04, 2024 12:54pm HTN (hypertension), benign December 12:54pm Hyperlipemia, mixed December 04, 2024 12:54pm Longstanding persistent atrial fibrillat ion December 04, 2024 12:54pm Chief Complaint Admit Date 10 m fu September 03, 2024 9:30a m INT LAB ORDERS September 03, 2024 10:31 am Pacer Check Remote September 12, 2024 12:1 1am 3 M FU December 04, 2024 12:54pm COPD EXACERBATION, LACTIC ACIDOSIS Anne agudelo 2024 11:26pm Reason for Visit Admit Date Anemia September 03, 2024 9:30a m SOB (shortness of breath) September 03, 2024 9:30am Chronic diastolic (congestive) heart yamilka lure September 03, 2024 9:30am History of coronary artery stent placeme nt September 03, 2024 9:30am History of permanent cardiac pacemaker p lacement September 03, 2024 9:30am HTN (hypertension), benign September 03 9:30am Hyperlipemia, mixed September 03, 2024 9:30a m Longstanding persistent atrial fibrillat ion September 03, 2024 9:30am Anemia December 04, 2024 12:54pm Chronic diastolic (congestive) heart yamilka lure December 04, 2024 12:54pm History of coronary artery stent placeme nt December 04, 2024 12:54pm History of permanent cardiac pacemaker p lacement December 04, 2024 12:54pm HTN (hypertension), benign December 12:54pm Hyperlipemia, mixed December 04, 2024 12:54pm Longstanding persistent atrial fibrillat ion December 04, 2024 12:54pm Acidosis, lactic December 05, 2024 11:26pm Acute bronchospasm December 05, 2024 11:26pm Atrial fibrillation December 05, 2024 11:26pm Rigors December 05, 2024 11:26pm Acute exacerbation of chroni c obstructive pulmonary disease December 05, 2024 11:26pm HTN (hypertension), benign December 11:26pm Additional Source Comments Reason for Visit (unrecogniz ed section and content) Reason Comments Consult had a colonoscopy 5 years ago; family history of colon cancer Status Reason Specialty Diagnoses / Procedures Referred By Contact Referred To Contact Closed Gastroenterology Diagnoses Anemia, unspecified type Clarisse Hunt, ISABELLE [address] [place] [address] Lele Esparza MD [address] [place] [id number] Status Reason Specialty Diagnoses / Procedures Referre d By Contact Referred To Contact Diagnoses Iron deficiency anemia due to chronic blood loss Family history of colon cancer requiring screening colonoscopy Iron deficiency anemia due to chronic blood loss [D50.0] Family history of colon cancer requiring screening colonoscopy [Z80.0] Procedures COLONOSCOPY Reason Comments Cellulitis From [facility] al for cellulitis of the right hand. Hand appears red and swollen with pain upon palpation. Reason Comments Consult colonoscopy Specialty Diagnoses / Procedures Referred By Nadya smith Referred To Contact GENERAL SURGERY Diagnoses Encounter for screening for malignant neoplasm of colon EGD/COLON CONSULT - [place] REFERRING - IN SCANNED DOC Procedures OFFICE/OUTPATIENT [facility] MDM 60-74 MINUTES NEW I PATIENT Administration, [facility] [address] [place] [address] Referral ID Status Reason Start Date Expiration Date Visits Re quested Visits Authorized [id number] Closed 12/02/2022 05/31/2023 1 1 Reason Comments Appointment NO SHOW Reason Comments Consult Specialty Diagnoses / Procedures Referred By Nadya smith Referred To Contact Anesthesiology / ANESTHESIOLOGY Diagnoses Encounter for screening for malignant neoplasm of colon COLONOSCOPY Procedures OFFICE/OUTPATIENT ESTABLISHED HIGH MDM 40-54 MIN COMPLETE PACC Samuel Contrears MD [address] [place] [address] 1, Pacc [facility] [address] [place] [address] Referral ID Status Reason Start Date Expiration Date Visits Re quested Visits Authorized [id number] Closed 12/02/2022 06/20/2023 1 1 Reason Comments Results Reason Comments Appointment Specialty Diagnoses / Procedures Referred By Nadya smith Referred To Contact Radiology Diagnoses Dyspnea, unspecified type Procedures XR CHEST PA+LAT 2 VIEWS Ji Caldera [address] [place] [address] [facility] DIAGNOSTIC RADIOLOGY [address] [place] [address] [place] [address] Referral ID Status Reason Start Date Expiration Date Visits Re quested Visits Authorized [id number] Closed 10/26/2023 10/25/2024 1 1 (unrecognized sect ion and content) No Status Records FoundNo Status Records FoundNo Status Records FoundNo Status Records FoundNo Status Records FoundNo Status Records FoundNo Status Records FoundNo Status Records FoundNo Status Records FoundNo Status Records Found INFORMATION SOURCE (unrecogn ized section and content) DATE CREATED AUTHOR 06/26/2019 [facility] DATE CREATED AUTHOR AUTHOR'S ORGANIZ ATION 12/19/2020 [facility] DATE CREATED AUTHOR AUTHOR'S ORGANIZ ATION 01/19/[address] [facility] DATE CREATED AUTHOR AUTHOR'S ORGANIZ ATION 03/16/2021 [facility] DATE CREATED AUTHOR AUTHOR'S ORGANIZ ATION 06/18/2021 [facility] DATE CREATED AUTHOR AUTHOR'S ORGANIZ ATION 11/07/2021 [facility] DATE CREATED AUTHOR AUTHOR'S ORGANIZ ATION 03/23/2023 [facility] DATE CREATED AUTHOR AUTHOR'S ORGANIZ ATION 02/05/2024 [facility] DATE CREATED AUTHOR AUTHOR'S ORGANIZ ATION 05/10/2024 [facility] DATE CREATED AUTHOR AUTHOR'S ORGANIZ ATION 12/05/2024 [facility] IsaiasLele brown MD - 06/11/2019 8:12 AM EDT H&P Notes (unrecognized sect ion and content) Llee Esparza MD Gastroenterology Family history of colon cancer requiring screening colonoscopy +1 more Dx Consult ; Referred by Lele Esparza MD Reason for Visit Diagnoses Codes [...] history of colon cancer was referred to [facility] for surveillance colonoscopy. His last colonoscopy was [...] file Gets together: Not on file Attends christianity service: Not on file Active member of [...] June 10 at 9 AM at surgery [place]. MD Lele Capellan MD Gastroenterology Family history of colon cancer requiring screening colonoscopy +1 more Dx Consult ; Referred by Lele Esparza MD Reason for Visit Diagnoses Codes [...] file Gets together: Not on file Attends christianity service: Not on file Active member of [...] 10 at 9 AM at surgery center. Lele Esparza MD documented in this encounter Lizeth [...] Ordered Prescriptions (unrec ognized section and content) Prescription Sig Dispensed Refills Start Date End Da te predniSONE (DELTASONE) 10 MG tablet Take 5 tablets by mouth daily for 5 days 25 tablet 0 11/27/2020 12/02/2020 naproxen (NAPROSYN) 500 MG tablet Take 1 tablet by mouth 2 times daily as needed for Pain 60 tablet 0 11/27/2020 naproxen (NAPROSYN) 500 MG tablet Take 1 tablet by mouth 2 times daily as needed for Pain 60 tablet 0 11/27/2020 11/27/2020 predniSONE (DELTASONE) 10 MG tablet Take 5 tablets by mouth daily for 5 days 25 tablet 0 11/27/2020 11/27/2020 Scheduled Active and Recently Administ ered Medications (unrecognized section and content) Medication Order 11/25/2020 11/26/2020 11/27/2020 sodium chloride flush 0.9 % injection 3 mL(Linked Group 1) 3 mL, IntraVENous, EVERY 8 HOURS, First dose on Tue11/26/20 at 2330, Flush line with 3-5 mL 0307 (Given - Provid er: Destiny Syed RN)0730 (Due)1530 (Due)2330 (Due) Linked Groups Order Group 1: Saline lock IV (COMPLETED) Routine, CONTINUOUS, Starting on Tue11/26/20 at 2330, Until Specified And sodium chloride flush 0.9 % injection 3 mLJump to med 3 mL, IntraVENous, EVERY 8 HOURS, First dose on Tue11/26/20 at 2330
Flush line with 3-5 mL
Goals (unrecognized section and content) Goals may be documented in a n alternate sectionGoals may be documented in an alternate sectionGoals may be documented in an alternate sectionGoals may be documented in an alternate sectionGoals may be documented in an alternate sectionGoals may be documented in an alternate sectionGoals may be documented in an alternate sectionGoals may be documented in an alternate sectionGoals may be documented in an alternate sectionGoals may be documented in an alternate sectionGoals may be documented in an alternate sectionGoals may be documented in an alternate sectionGoals may be documented in an alternate sectionGoals may be documented in an alternate section Care Teams (unrecognized sec tion and content) Team Status: Active Member Role/Relationship Status Dates [facility] Primary Care Provider Active Team Status: Inactive Member Role/Relationship Status Dates [facility] Primary Care Provider Active Start: September 03, 2024 End: September 03, 2024 [facility] Referring Provider Active Start: 2024 End: September 03, 2024 Jesse Grace CLIENT DEVELOPMENT DIRECTOR, CLIENT DEVELOPMENT DIRECTOR-C Attending Provider Active S tart: September 03, 2024 End: September 03, 2024 Team Status: Inactive Member Role/Relationship Status Dates [facility] Primary Care Provider Active Start: September 03, 2024 End: September 03, 2024 Jesse Grace CLIENT DEVELOPMENT DIRECTOR, CLIENT DEVELOPMENT DIRECTOR-C Attending Provider Active S tart: September 03, 2024 End: September 03, 2024 Jesse Grace CLIENT DEVELOPMENT DIRECTOR, CLIENT DEVELOPMENT DIRECTOR-C Referring Provider Active S tart: September 03, 2024 End: September 03, 2024 Team Status: Inactive Member Role/Relationship Status Dates [facility] Primary Care Provider Active Start: September 12, 2024 End: September 12, 2024 Dr. Emanuel Richardson MD Attending Provider Active S tart: September 12, 2024 End: September 12, 2024 Team Status: Inactive Member Role/Relationship Status Dates [facility] Primary Care Provider Active Start: December 04, 2024 End: December 04, 2024 [facility] Referring Provider Active Start: 2024 End: December 04, 2024 Jesse Grace CLIENT DEVELOPMENT DIRECTOR, CLIENT DEVELOPMENT DIRECTOR-C Attending Provider Active S tart: December 04, 2024 End: December 04, 2024 Team Status: Active Member Role/Relationship Status Dates [facility] Primary Care Provider Active Start: December 05, 2024 Dr. Constantin Yanes MD Emergency Provider Active Sta rt: December 05, 2024 Dr. Radha Mosley MD Admit Provider Active St art: December 05, 2024 Dr. Radha Mosley MD Attending Provider Active Start: December 05, 2024 Team Status: Active Member Role Status Dates [facility] Family Provider Active [facility] Primary Care Provider Active Team Status: Active Member Role Status Dates [facility] Primary Care Provider Active Dr. Rai Cochran MD Emergency Provider Active Dr. Ros Patterson MD Admit Provider, At tending Provider, Other Provider Active Dr. Priyanka Luna MD Other Provider Active Team Status: Active Member Role Status Dates [facility] Primary Care Provider Active Dr. Rai Cochran MD Emergency Provider Active Dr. Ros Patterson MD Admit Provider, Other Provider A ctive Dr. Priyanka Luna MD Attending Provider, Other Provid er Active Team Status: Active Member Role Status Dates [facility] Primary Care Provider Active Dr. Priyanka Luna MD Attending Provider Active Team Status: Active Member Role Status Dates [facility] Primary Care Provider Active Dr. Gee Elena MD Attending Provider Active Team Status: Inactive Member Role Status Dates [facility] Primary Care Provider, Referring Provider Active Dr. Emanuel Richardson MD Attending Provider Active Team Status: Inactive Member Role Status Dates [facility] Primary Care Provider, Referring Provider Active Destiny Smith Attending Provider Active Team Status: Inactive Member Role Status Dates [facility] Primary Care Provider Active Dr. Rai Cochran MD Emergency Provider Active Dr. Ros Patterson MD Admit Provider, Attending Provid er Active Dr. Priyanka Luna MD Other Provider Active Team Status: Inactive Member Role Status Dates [facility] Primary Care Provider Active Dr. Asuncion Larios MD Attending Provider, Referring Provider Active Team Status: Inactive Member Role Status Dates [facility] Primary Care Provider, Referring Provider Active Jesse Grace CLIENT DEVELOPMENT DIRECTOR, CLIENT DEVELOPMENT DIRECTOR-C Attending Provider Active Team Status: Active Member Role Status Dates [facility] Primary Care Provider Active Jesse Grace CLIENT DEVELOPMENT DIRECTOR, CLIENT DEVELOPMENT DIRECTOR-C Attending Provider, Referring Pro vider Active Team Status: Inactive Member Role Status Dates [facility] Primary Care Provider, Referring Provider Active Destiny Smith Active Dr. Emanuel Richardson MD Attending Provider Active Team Status: Inactive Member Role Status Dates [facility] Primary Care Provider Active Jesse Grace CLIENT DEVELOPMENT DIRECTOR, CLIENT DEVELOPMENT DIRECTOR-C Attending Provider, Referring Pro vider Active Radial Saw Operator Relationship Specialty Start Date End Date Lele Esparza MD PCP - General Gastroenterology 11/05/21 Radial Saw Operator Relationship Specialty Start Date End Date Lele Esparza MD PCP - General Gastroenterology 11/05/21 Radial Saw Operator Relationship Specialty Start Date End Date Lele Esparza MD PCP - General Gastroenterology 11/05/21 Radial Saw Operator Relationship Specialty Start Date End Date Lele Esparza MD PCP - General Gastroenterology 11/05/21 Team Status: Active Member Role Status Dates [facility] Primary Care Provider, Referring Provider Active Destiny Smith Attending Provider Active Team Status: Inactive Member Role Status Dates [facility] Primary Care Provider Active Dr. Jimbo Aquino , DO Attending Provider, Emergency Ernesto hutchinson Active Team Status: Active Member Role Status Dates [facility] Primary Care Provider Active Dr. Toro Melendez DO Emergency Provider Active Dr. Joshua Clay , DO Admit Provider, Attending Provider Active Team Status: Active Member Role Status Dates [facility] Primary Care Provider Active Dr. Toro Melendez , DO Emergency Provider Active Dr. Joshua Clay , DO Admit Provider, Other Pro vider Active Dr. Gee Elena MD Attending Provider, Other Provid er Active Team Status: Inactive Member Role Status Dates [facility] Primary Care Provider Active Dr. Toro Melendez DO Emergency Provider Active Dr. Joshua Clay , DO Admit Provider, Attending Provider Active Dr. Gee Elena MD Other Provider Active Radial Saw Operator Relationship Specialty Start Date End Date [facility] [address] [place] [address] PCP - General Family Medicine 03/02/23 Team Status: Active Member Role Status Dates [facility] [facility] Primary Care Provider Active Dr. Toro Melendez DO Emergency Provider Active Dr. Joshua Clay , DO Admit Provi alex, Attending Provider, Other Provider Active Dr. Gee Elena MD Other Provider Active Team Status: Active Member Role Status Dates [facility] Primary Care Provider Active Dr. Hugo Romo MD Referring Provider, Emergency Pro vider Active Dr. Arsen Quan MD Admit Provi alex, Attending Provider, Other Provider Active Team Status: Active Member Role Status Dates [facility] Primary Care Provider Active Dr. Hugo Romo MD Referring Provider, Emergency Pro vider Active Dr. Arsen Quan MD Admit Provider, Other Pro vider Active Dr. Pavel Atkins MD Attending Provider, Other Provi alex Active Team Status: Active Member Role Status Dates [facility] Primary Care Provider Active Dr. Pavel Atkins MD Attending Provider Active Team Status: Active Member Role Status [facility] Primary Care Provider Active Dr. uHgo Romo MD Referring Provider, Emergency Pro vider Active Dr. Arsen Quan MD Admit Provider, Other Pro vider Active Dr. Pvael Atkins MD Other Provider Active Dr. Evan Burns DO Attending Provider, Other Pro vider Active Team Status: Active Member Role Status [facility] Primary Care Provider Active Dr. Hugo Romo MD Referring Provider, Emergency Pro vider Active Dr. Arsen Quan MD Admit Provider, Other Pro vider Active Dr. Pavel Atkins MD Attending Provider, Other Provi alex Active Dr. Anh Salinas MD Other Provider Active Dr. Evan Burns DO Other Provider Active Team Status: Active Member Role Status [facility] Primary Care Provider Active Dr. Hugo Romo MD Referring Provider, Emergency Pro vider Active Dr. Arsen Quan MD Admit Provider, Other Pro vider Active Dr. Pavel Atkins MD Other Provider Active Dr. Anh Salinas MD Attending Provider, Other Prov ider Active Dr. Evan Burns DO Other Provider Active Team Status: Inactive Member Role Status [facility] Primary Care Provider Active Dr. Hugo Romo MD Referring Provider, Emergency Pro vider Active Dr. Arsen Quan MD Admit Provider, Other Pro vider Active Dr. Pavel Atkins MD Other Provider Active Dr. Anh Salinas MD Attending Provider Active Dr. Evan Burns DO Other Provider Active Team Status: Active Member Role Status [facility] Primary Care Provider Active Dr. Hugo Romo MD Emergency Provider Active Dr. Arsen Quan MD Admit Provider, Other Pro vider Active Dr. Pavel Atkins MD Other Provider Active Dr. Anh Salinas MD Attending Provider, Other Prov ider Active Dr. Evan Burns DO Other Provider Active Team Status: Active Member Role Status [facility] Primary Care Provider Active Dr. Emily Dougherty MD Attending Provider Activ e Dr. Arsen Quan MD Referring Provider Active Team Status: Inactive Member Role Status [facility] Primary Care Provider Active Dr. Emanuel Richardson MD Attending Provider Active Team Status: Inactive Member Role Status [facility] Primary Care Provider Active Dr. Jimbo Aquino DO Emergency Provider Active Team Status: Inactive Member Role Status Dates [facility] Primary Care Provider, Referring Provider Active Marlee Smith CLIENT DEVELOPMENT DIRECTOR, CLIENT DEVELOPMENT DIRECTOR-C Attending Provider Active Team Status: Inactive Member Role Status Dates [facility] Primary Care Provider Active Dr. Nohemi Hunter MD Emergency Provider Active Team Status: Inactive Member Role Status Dates [facility] Primary Care Provider Active KAITLIN BANDA Attending Provider, Referring Provide r Active Team Status: Inactive Member Role Status Dates [facility] Primary Care Provider Active Dr. Nohemi Hnuter MD Attending Provider, Emergency Provider Active Team Status: Active Member Role Status Dates [facility] Primary Care Provider Active Dr. Ajit Angel DO Emergency Provider Active Dr. Pavel Hogan MD Attending Provider Active Team Status: Inactive Member Role Status Dates [facility] Primary Care Provider Active Dr. Ajit Angel DO Emergency Provider Active Team Status: Inactive Member Role Status Dates [facility] Primary Care Provider Active Dr. Ajit Angel DO Attending Provider, Emergency Pro vider Active Radial Saw Operator Relationship Specialty Start Date End Date [address] [address] PCP - General Family Medicine 03/02/23 Radial Saw Operator Relationship Specialty Start Date End Date [id number] [place] [address] PCP - General Family Medicine 03/02/23 Team Status: Inactive Member Role Status Dates [facility] Primary Care Provider Active Start: June 07, 2024 End: June 07, 2024 Dr. Emanuel Richardson MD Attending Provider Active S tart: June 07, 2024 End: June 07, 2024 Team Status: Inactive Member Role Status Dates [facility] Primary Care Provider Active Start: June 21, 2024 End: June 21, 2024 Dr. Emanuel Richardson MD Attending Provider Active S tart: June 21, 2024 End: June 21, 2024 Team Status: Inactive Member Role Status Dates [facility] Primary Care Provider Active Start: September 03, 2024 End: September 03, 2024 [facility] Referring Provider Active Start: 2024 End: September 03, 2024 Jesse Grace CLIENT DEVELOPMENT DIRECTOR, CLIENT DEVELOPMENT DIRECTOR-C Attending Provider Active S tart: September 03, 2024 End: September 03, 2024 Team Status: Inactive Member Role Status Dates [facility] Primary Care Provider Active Start: September 03, 2024 End: September 03, 2024 Jesse Grace CLIENT DEVELOPMENT DIRECTOR, CLIENT DEVELOPMENT DIRECTOR-C Attending Provider Active S tart: September 03, 2024 End: September 03, 2024 Jesse Grace CLIENT DEVELOPMENT DIRECTOR, CLIENT DEVELOPMENT DIRECTOR-C Referring Provider Active S tart: September 03, 2024 End: September 03, 2024 Team Status: Inactive Member Role Status Dates [facility] Primary Care Provider Active Start: September 12, 2024 End: September 12, 2024 Dr. Emanuel Richardson MD Attending Provider Active S tart: September 12, 2024 End: September 12, 2024 Team Status: Active Member Role/Relationship Status Dates [facility] Family Provider Active [facility] Primary Care Provider Active Team Status: Inactive Member Role/Relationship Status Dates [facility] Primary Care Provider Active Start: September 03, 2024 End: September 03, 2024 [facility] Referring Provider Active Start: 2024 End: September 03, 2024 Jesse Grace CLIENT DEVELOPMENT DIRECTOR, CLIENT DEVELOPMENT DIRECTOR-C Attending Provider Active S tart: September 03, 2024 End: September 03, 2024 Team Status: Inactive Member Role/Relationship Status Dates [facility] Primary Care Provider Active Start: September 03, 2024 End: September 03, 2024 Jesse Grace CLIENT DEVELOPMENT DIRECTOR, CLIENT DEVELOPMENT DIRECTOR-C Attending Provider Active S tart: September 03, 2024 End: September 03, 2024 Jesse Grace CLIENT DEVELOPMENT DIRECTOR, CLIENT DEVELOPMENT DIRECTOR-C Referring Provider Active S tart: September 03, 2024 End: September 03, 2024 Team Status: Inactive Member Role/Relationship Status Dates [facility] Primary Care Provider Active Start: September 12, 2024 End: September 12, 2024 Dr. Emanuel Richardson MD Attending Provider Active S tart: September 12, 2024 End: September 12, 2024 Team Status: Inactive Member Role/Relationship Status Dates [facility] Primary Care Provider Active Start: December 04, 2024 End: December 04, 2024 [facility] Referring Provider Active Start: Se 2024 End: December 04, 2024 Jesse Grace CLIENT DEVELOPMENT DIRECTOR, CLIENT DEVELOPMENT DIRECTOR-C Attending Provider Active S tart: December 04, 2024 End: December 04, 2024 Team Status: Active Member Role/Relationship Status Dates [facility] Primary Care Provider Active Team Status: Active Member Role/Relationship Status Dates [facility] Primary Care Provider Active Start: December 05, 2024 Dr. Constantin Yanes MD Emergency Provider Active Sta rt: December 05, 2024 Dr. Radha Mosley MD Admit Provider Active St art: December 05, 2024 Dr. Radha Mosley MD Attending Provider Active Start: December 05, 2024 Source Comments (unrecognize d section and content) In the event this informatio n is protected by the Federal Confidentiality of Alcohol and Drug Abuse Patient Records regulations: The Federal rules restrict any use of the information to criminally investigate or prosecute any alcohol or drug abuse patient.[facility] the event this information is protected by the Federal Confidentiality of Alcohol and Drug Abuse Patient Records regulations: The Federal rules restrict any use of the information to criminally investigate or prosecute any alcohol or drug abuse patient.[facility] the event this information is protected by the Federal Confidentiality of Alcohol and Drug Abuse Patient Records regulations: The Federal rules restrict any use of the information to criminally investigate or prosecute any alcohol or drug abuse patient.[facility] the event this information is protected by the Federal Confidentiality of Alcohol and Drug Abuse Patient Records regulations: The Federal rules restrict any use of the information to criminally investigate or prosecute any alcohol or drug abuse patient.[facility] the event this information is protected by the Federal Confidentiality of Alcohol and Drug Abuse Patient Records regulations: The Federal rules restrict any use of the information to criminally investigate or prosecute any alcohol or drug abuse patient.[facility] the event this information is protected by the Federal Confidentiality of Alcohol and Drug Abuse Patient Records regulations: The Federal rules restrict any use of the information to criminally investigate or prosecute any alcohol or drug abuse patient.[facility] the event this information is protected by the Federal Confidentiality of Alcohol and Drug Abuse Patient Records regulations: The Federal rules restrict any use of the information to criminally investigate or prosecute any alcohol or drug abuse patient.[facility] the event this information is protected by the Federal Confidentiality of Alcohol and Drug Abuse Patient Records regulations: The Federal rules restrict any use of the information to criminally investigate or prosecute any alcohol or drug abuse patient.[facility] FOR RECORDS PERTAINING TO PATIENTS WHO ARE [...] BE BASED ON THE PRIMARY CLINICAL RECORDS. [facility]. provides no warranty or guarantee of the accuracy or completeness of information in this document.
[2024-12-06] MEDS: 0.9% Normal Saline (1000mL) 1,000 ML 100 ML IV (00:45)
[2024-12-06] MEDS: 0.9% Normal Saline (1000mL) 1,000 ML 999 ML IV (00:45)
[2024-12-06] MEDS: 0.9% Saline Lock 10 ML Syringe IV ×2 (00:45→05:39)
[2024-12-06] MEDS: MELATONIN 3 MG TABLET PO (00:47)
[2024-12-06 02:25] LABS: Reflex Lactate? Y
[2024-12-06 03:00] LABS: Hematocrit 36.2 % (40-54); Hemoglobin 12.2 g/dL (13.0-16.5); Immature Granulocytes Count 0.110 X10^3/uL (0.0-0.0); Mean Corp Hgb Conc 33.7 g/dL (32-36); Mean Corpuscular Volume 89.2 fL (80-94); Mean Platelet Vol. 11.6 fl (6.2-12.0); NRBC Flagged by Analyzer 0 % (0-5); POSITIVE COUNT YES; POSITIVE DIFFERENTIAL YES; Platelet Count 99 K/mm3 (150-450); RBC Distribution Width CV 13.5 % (11.6-14.6); RBC Distribution Width SD 44.3 fl (35.1-43.9); Red Blood Count 4.06 M/mm3 (4.6-6.2); White Blood Count 8.7 K/mm3 (4.4-11.0)
[2024-12-06 03:23] LABS: Differential Indicated SCAN CRITERIA MET
[2024-12-06 03:44] LABS: AST(SGOT) 28 U/L (<=37); Alanine Aminotransfer ALT/SGPT 13 U/L (<=46); Albumin, Serum 4.0 g/dL (3.4-4.8); Alkaline Phosphatase 88 U/L (40-129); Anion Gap 13 (5-15); BUN 14 mg/dL (4-19); BUN/Creat Ratio 12.8 RATIO (10-20); Calcium,Total 8.6 mg/dL (7.6-11.0); Carbon Dioxide 20.9 mmol/L (21.0-32.0); Chloride 102 mmol/L (98-108); Estimated Creatinine Clearance 77.12 ml/min (50-250); Globulin 2.9 g/dL (2.2-4.2); Glucose 160 mg/dL (70-99); Potassium 4.2 mmol/L (3.3-5.1)
[2024-12-06 05:57] LABS: Differential Comment SCANNED
--- NOTE | 2024-12-06 06:59 | PN.HOSP_ITS ---
Reason for Visit Chief Complaint: Cough, dyspnea, wheezing, chills. Subjective Subjective Patient is a 79-year-old gentleman who presented with cough and shortness of breath. Has underlying history of COPD Objective Data Objective Data Vital Signs: Vital Signs Temp Pulse Resp BP Pulse Ox O2 Del Method 98.5 F 60 15 147/88 H 94 Room Air 12/06/24 05:49 12/06/24 05:49 12/06/24 05:49 12/06/24 05:49 12/06/24 05:49 12/06/24 05:49 Oxygen Delivery Method Room Air Weight: 117.843 kg Body Mass Index (BMI) 32.3 Intake & Output: Intake and Output for Last 24 Hours 12/04/24 12/05/24 12/06/24 23:59 23:59 23:59 Intake Total 1150 / 1150 Output Total 300 / 300 Balance 850 / 850 Lab / Micro Data 12/06/24 02:45 12/06/24 02:45 Labs: Laboratory Results - last 24 hr 12/05/24 20:25: WBC 9.0, RBC 4.33 L, Hgb 13.2, Hct 39.0 L, MCV 90.1, MCH 30.5, MCHC 33.8, RDW Std Deviation 45.3 H, RDW Coeff of Misti 13.5, Plt Count 114 L, MPV 11.4, Immature Gran % (Auto) 1.000 H, Neut % (Auto) 70.9 H, Lymph % (Auto) 14.7 L, Payette % (Auto) 10.7 H, Eos % (Auto) 1.9, Baso % (Auto) 0.8, Absolute Neuts (auto) 6.4, Absolute Lymphs (auto) 1.32, Nucleated RBC % 0, Sodium Cancelled, Potassium Cancelled, Chloride Cancelled, Carbon Dioxide Cancelled, Anion Gap Cancelled, BUN Cancelled, Creatinine Cancelled, Estim Creat Clear Calc Cancelled, Est GFR (MDRD) Non-Af Cancelled, BUN/Creatinine Ratio Cancelled, Glucose Cancelled, Calcium Cancelled, Total Bilirubin Cancelled, AST Cancelled, ALT Cancelled, Alkaline Phosphatase Cancelled, Total Protein Cancelled, Albumin Cancelled, Globulin Cancelled, Albumin/Globulin Ratio Cancelled 12/05/24 22:05: Lactic Acid 3.4 H* 12/05/24 23:33: Sodium 135, Potassium 3.9, Chloride 99, Carbon Dioxide 22.7, Anion Gap 14, BUN 15, Creatinine 1.18, Estim Creat Clear Calc 73.32, Est GFR (MDRD) Non-Af 64, BUN/Creatinine Ratio 12.4, Glucose 136 H, Calcium 8.9, Magnesium 2.0, Total Bilirubin 1.01, AST 28, ALT 15, Alkaline Phosphatase 92, Total Protein 7.0, Albumin 4.0, Globulin 3.1, Albumin/Globulin Ratio 1.3 12/06/24 02:45: WBC 8.7, RBC 4.06 L, Hgb 12.2 L, Hct 36.2 L, MCV 89.2, MCH 30.0, MCHC 33.7, RDW Std Deviation 44.3 H, RDW Coeff of Misti 13.5, Plt Count 99 L, MPV 11.6, Immature Gran % (Auto) 1.300 H, Neut % (Auto) 90.1 H, Lymph % (Auto) 5.1 L , Payette % (Auto) 3.2, Eos % (Auto) 0.1, Baso % (Auto) 0.2, Absolute Neuts (auto) 7.8 H, Absolute Lymphs (auto) 0.44 L, Nucleated RBC % 0, Differential Comment SCANNED, Platelet Estimate MOD DEC, Sodium 135, Potassium 4.2, Chloride 102, C arbon Dioxide 20.9 L, Anion Gap 13, BUN 14, Creatinine 1.11, Estim Creat Clear Calc 77.12, Est GFR (MDRD) Non-Af 68, BUN/Creatinine Ratio 12.8, Glucose 160 H, Lactic Acid 2.0, Calcium 8.6, Total Bilirubin 0.97, AST 28, ALT 13, Alkaline Phosphatase 88, Total Protein 6.8, Albumin 4.0, Globulin 2.9, Albumin/Globulin Ratio 1.4 Micro: Microbiology 12/06/24 02:00 Mucosa - Nasopharyngeal Coronavirus COVID-19 PCR - Final 12/06/24 02:00 Mucosa - Nasopharyngeal Respiratory Panel (PCR) - Final Radiography Diagnostic Testing: Radiology Impression Chest X-Ray 12/05/24 21:20 IMPRESSION: Mild pulmonary vascular congestion. no focal consolidation. Reading Location: [facility] Physical Exam Narrative GENERAL: cooperative HEENT: Atraumatic; normocephalic EYES; Anicteric, Normal Conjunctiva NECK; supple, normal thyroid, RESPIRATORY: Diminished to auscultation CARDIOVASCULAR: Regular S1 S2, GI: soft, normoactive bowel sounds, : No Renal angle tenderness; EXTREMITIES: No edema, no clubbing, MUSCULOSKELETAL: no muscle wasting NEURO: Awake; no lateralizing signs. SKIN: No Rash PSYCH; Flat affect Assessment & Plan Assessment/Plan (1) Acute exacerbation of chronic obstructive pulmonary disease: (2) Acidosis, lactic: PLAN: Patient is a 79-year-old gentleman who presented with cough and shortness of breath. Has underlying history of COPD 1. COPD with acute exacerbation ? Patient started on bronchodilator treatment, systemic steroid as well as antibiotic therapy. Patient placed on oxygen titrated to keep saturation greater than 90. ? Patient seen already requesting to be discharged home. Plan is for patient to be assessed for home oxygen prior to making a decision 2. Chronic congestive heart failure with preserved ejection fraction ? Echo from 02/17/2023 demonstrated EF of 50 to 55%. Patient is on guideline directed medical therapy continue 3. Coronary artery disease ? Status post PCI will continue with home meds 4. Paroxysmal atrial fibrillation ? Rate controlled on metoprolol patient on systemic anticoagulation with apixaban 5. Tachybradycardia syndrome Status post pacemaker placement 6. Hypertension ? Blood pressure controlled, home medications continued with dose adjustment as needed 7. Dyslipidemia ? Patient is on rosuvastatin discontinued 8. GERD ? On PPI 9. Gout ? Patient is on allopurinol and colchicine 10. DVT prophylaxis ? On apixaban Charges/Coding Visit Charges Inpatient E&M: 83785 Subs Hosp L2
[2024-12-06] MEDS: Metoprolol(XL)Succ 50 MG Tablet PO (09:58)
[2024-12-06] MEDS: APIXABAN 5 MG TABLET PO (09:59)
[2024-12-06] MEDS: Lidocaine 5% Patch 2 PATCH TOPICAL (09:59)
--- NOTE | 2024-12-06 11:34 | PCM.DC.SUM ---
Providers Date of Admission: 12/05/24 Date of Discharge: 12/06/24 Primary Care Physician: [facility] Reason For Visit: COPD EXACERBATION, LACTIC ACIDOSIS Diagnosis Discharge Diagnosis (1) Acute exacerbation of chronic obstructive pulmonary disease: Status: Chronic Code(s): J44.1 - Chronic obstructive pulmonary disease with (acute) exacerbation (2) Acidosis, lactic: Status: Acute Code(s): E87.20 - Acidosis, unspecified Plan: Patient is a 79-year-old gentleman who presented with cough and shortness of breath. Has underlying history of COPD 1. COPD with acute exacerbation ? Patient started on bronchodilator treatment, systemic steroid as well as antibiotic therapy. Patient placed on oxygen titrated to keep saturation greater than 90. ? Patient seen already requesting to be discharged home. Plan is for patient to be assessed for home oxygen prior to making a decision ? Patient was expected to have stayed for 2 midnight however given his rapid recovery decision was made to discharge patient home just after a day of his hospitalization 2. Chronic congestive heart failure with preserved ejection fraction ? Echo from 02/17/2023 demonstrated EF of 50 to 55%. Patient is on guideline directed medical therapy continue 3. Coronary artery disease ? Status post PCI will continue with home meds 4. Paroxysmal atrial fibrillation ? Rate controlled on metoprolol patient on systemic anticoagulation with apixaban 5. Tachybradycardia syndrome Status post pacemaker placement 6. Hypertension ? Blood pressure controlled, home medications continued with dose adjustment as needed 7. Dyslipidemia ? Patient is on rosuvastatin discontinued 8. GERD ? On PPI 9. Gout ? Patient is on allopurinol and colchicine 10. DVT prophylaxis ? On apixaban Medications at Discharge Home Medications cholecalciferol (vitamin D3) 50 mcg (2,000 unit) tablet 50 mcg PO DAILY SUPPLEMENT 04/13/21 colchicine 0.6 mg tablet 1.2 mg PO DAILY PRN gout 02/04/22 folic acid 1 mg tablet 2 mg PO DAILY SUPPLEMENT 02/04/22 apixaban 5 mg tablet 5 mg PO BID BLOOD THINNER #90 tabs 05/14/22 doxazosin 1 mg tablet 1 mg PO DAILY BLOOD PRESSURE #90 tabs 05/14/22 pantoprazole 40 mg tablet,delayed release 40 mg PO DAILY ACID REFLUX #180 tabs 05/14/22 rosuvastatin 20 mg tablet 20 mg PO DAILY CHOLESTEROL #90 tabs 05/14/22 allopurinol 100 mg tablet 200 mg PO DAILY GOUT 08/31/22 acetaminophen 325 mg tablet (Tylenol) 325 mg PO Q6H PRN pain 03/12/23 aspirin 81 mg chewable tablet 81 mg PO DAILY #30 tabs 03/15/23 albuterol sulfate 90 mcg/actuation aerosol inhaler (Ventolin HFA) 2 puff inhalation Q4H PRN PRN Wheezing ##1 05/26/23 isosorbide mononitrate 30 mg tablet,extended release 24 hr 30 mg PO DAILY #30 tabs 07/16/23 fluticasone 100 mcg-salmeterol 50 mcg/dose blistr powdr for inhalation (Wixela Inhub) 1 inh inhalation BID 07/29/23 furosemide 40 mg tablet (Lasix) 40 mg PO DAILY 07/29/23 metoprolol succinate 50 mg tablet,extended release 24 hr 50 mg PO BID 07/29/23 gabapentin 300 mg capsule 300 mg PO TID 12/04/24 lidocaine 5 % topical patch 2 patch topical QDAY 12/04/24 vit C 250 mg-vit E 90 mg-zinc 40 mg-copper 1 [id number] capsule (PreserVision AREDS-2) 1 tab PO BID 12/04/24 guaifenesin 600 mg tablet, extended release 12 hr (Mucinex) 1,200 mg (2 x 600 mg) PO BID #20 tabs 12/06/24 levofloxacin 750 mg tablet 750 mg PO DAILY #5 tabs 12/06/24 prednisone 20 mg tablet 20 mg PO BID #14 tabs 12/06/24 Hospital Course Summary of Care Provided Minutes Spent on Discharge: 32 Physical Exam Narrative GENERAL: cooperative HEENT: Atraumatic; normocephalic EYES; Anicteric, Normal Conjunctiva NECK; supple, normal thyroid, RESPIRATORY: Diminished to auscultation CARDIOVASCULAR: Regular S1 S2, GI: soft, normoactive bowel sounds, : No Renal angle tenderness; EXTREMITIES: No edema, no clubbing, MUSCULOSKELETAL: no muscle wasting NEURO: Awake; no lateralizing signs. SKIN: No Rash PSYCH; Flat affect Weight / BMI Weight Weight: 117.843 kg Body Mass Index (BMI) 32.3 ABG / Lab / Microbiology Data 12/06/24 02:45 12/06/24 02:45 Laboratory: Laboratory Results - last 24 hr 12/05/24 20:25: WBC 9.0, RBC 4.33 L, Hgb 13.2, Hct 39.0 L, MCV 90.1, MCH 30.5, MCHC 33.8, RDW Std Deviation 45.3 H, RDW Coeff of Misti 13.5, Plt Count 114 L, MPV 11.4, Immature Gran % (Auto) 1.000 H, Neut % (Auto) 70.9 H, Lymph % (Auto) 14.7 L, Carbon % (Auto) 10.7 H, Eos % (Auto) 1.9, Baso % (Auto) 0.8, Absolute Neuts (auto) 6.4, Absolute Lymphs (auto) 1.32, Nucleated RBC % 0, Sodium Cancelled, Potassium Cancelled, Chloride Cancelled, Carbon Dioxide Cancelled, Anion Gap Cancelled, BUN Cancelled, Creatinine Cancelled, Estim Creat Clear Calc Cancelled, Est GFR (MDRD) Non-Af Cancelled, BUN/Creatinine Ratio Cancelled, Glucose Cancelled, Calcium Cancelled, Total Bilirubin Cancelled, AST Cancelled, ALT Cancelled, Alkaline Phosphatase Cancelled, Total Protein Cancelled, Albumin Cancelled, Globulin Cancelled, Albumin/Globulin Ratio Cancelled 12/05/24 22:05: Lactic Acid 3.4 H* 12/05/24 23:33: Sodium 135, Potassium 3.9, Chloride 99, Carbon Dioxide 22.7, Anion Gap 14, BUN 15, Creatinine 1.18, Estim Creat Clear Calc 73.32, Est GFR (MDRD) Non-Af 64, BUN/Creatinine Ratio 12.4, Glucose 136 H, Calcium 8.9, Magnesium 2.0, Total Bilirubin 1.01, AST 28, ALT 15, Alkaline Phosphatase 92, Total Protein 7.0, Albumin 4.0, Globulin 3.1, Albumin/Globulin Ratio 1.3 12/06/24 02:45: WBC 8.7, RBC 4.06 L, Hgb 12.2 L, Hct 36.2 L, MCV 89.2, MCH 30.0, MCHC 33.7, RDW Std Deviation 44.3 H, RDW Coeff of Misti 13.5, Plt Count 99 L, MPV 11.6, Immature Gran % (Auto) 1.300 H, Neut % (Auto) 90.1 H, Lymph % (Auto) 5.1 L, Carbon % (Auto) 3.2, Eos % (Auto) 0.1, Baso % (Auto) 0.2, Absolute Neuts (auto) 7.8 H, Absolute Lymphs (auto) 0.44 L, Nucleated RBC % 0, Differential Comment SCANNED, Platelet Estimate MOD DEC, Sodium 135, Potassium 4.2, Chloride 102, Carbon Dioxide 20.9 L, Anion Gap 13, BUN 14, Creatinine 1.11, Estim Creat Clear Calc 77.12, Est GFR (MDRD) Non-Af 68, BUN/Creatinine Ratio 12.8, Glucose 160 H, Lactic Acid 2.0, Calcium 8.6, Total Bilirubin 0.97, AST 28, ALT 13, Alkaline Phosphatase 88, Total Protein 6.8, Albumin 4.0, Globulin 2.9, Albumin/Globulin Ratio 1.4 Microbiology: Microbiology 12/06/24 05:54 Urine, Random Legionella Antigen - Final 12/06/24 05:54 Urine, Random Streptococcus pneumoniae Antigen (M - Final 12/06/24 02:00 Mucosa - Nasopharyngeal Coronavirus COVID-19 PCR - Final 12/06/24 02:00 Mucosa - Nasopharyngeal Respiratory Panel (PCR) - Final Radiography Diagnostic Testing: Radiology Impression Chest X-Ray 12/05/24 21:20 IMPRESSION: Mild pulmonary vascular congestion. no focal consolidation. Reading Location: [facility] D/C Instructions Discharge Activity: Return to Normal Activity Call your doctor if you observe: Fever of 101 or Higher, Shortness of breath, Fainting spells and Chest pain DC O2, CPAP, BIPAP Needs Home O2 Discharge instructions: No Meaningful Use Info Meaningful Use Meaningful Use Diagnoses (Choose all that apply): None applicable Discharge Plan Admission Admit Date/Time: 12/05/24 23:26 Attending Provider: Sincere Arteaga Primary Care Provider: [facility] Consulting Providers: Radha Mosley Discharge Orders/Prescriptions Prescriptions: New levofloxacin 750 mg Tablet 750 mg PO DAILY Qty: 5 0RF prednisone 20 mg tablet 20 mg PO BID Qty: 14 0RF guaifenesin [Mucinex] 600 mg tablet extended release 12hr 1,200 mg PO BID Qty: 20 0RF Continued metoprolol succinate 50 mg tablet extended release 24 hr 50 mg PO BID furosemide [Lasix] 40 mg tablet 40 mg PO DAILY fluticasone propion-salmeterol [Wixela Inhub] 100-50 mcg/dose blister with device 1 inh inhalation BID gabapentin 300 mg capsule 300 mg PO TID lidocaine 5 % adhesive patch,medicated 2 patch topical QDAY Rx Instructions: leave on most painful area for up to 12 hrs PreserVision AREDS-2 250-90-40-1 mg capsule 1 tab PO BID cholecalciferol (vitamin D3) 50 mcg (2,000 unit) Tablet 50 mcg PO DAILY allopurinol 100 mg tablet 200 mg PO DAILY folic acid 1 mg tablet 2 mg PO DAILY colchicine 0.6 mg tablet 1.2 mg PO DAILY PRN (Reason: gout) acetaminophen [Tylenol] 325 mg tablet 325 mg PO Q6H PRN (Reason: pain) aspirin 81 mg tablet,chewable 81 mg PO DAILY Qty: 30 2RF albuterol sulfate [Ventolin HFA] 90 mcg/actuation HFA aerosol inhaler 2 puff inhalation Q4H PRN PRN (Reason: Wheezing) Qty: 1 0RF isosorbide mononitrate 30 mg tablet extended release 24 hr 30 mg PO DAILY Qty: 30 0RF Rx Instructions: TAKE IN AM apixaban 5 mg tablet 5 mg PO BID Qty: 90 3RF doxazosin 1 mg tablet 1 mg PO DAILY Qty: 90 3RF rosuvastatin 20 mg tablet 20 mg PO DAILY Qty: 90 3RF pantoprazole 40 mg tablet,delayed release (DR/EC) 40 mg PO DAILY Qty: 180 3RF Referrals / Follow Up[facility] [Primary [facility] Provider[facility] - Within 2 Weeks Disposition Disposition (needs filled in before D/C Order can be placed): Home, Self Care Charges/Coding Visit Charges Inpatient E&M: 58372 Disch Hosp >30min
--- NOTE | 2024-12-06 12:16 | CASEMGMT ---
RN CM Face to Face with patient for initial transition planning/care coordination assessment. RN CM introduced self and role at [facility]. Patient lying in bed, alert and oriented. Patient willing to participate in assessment and is able to answer all questions appropriately. Care providers, pharmacy, and demographics verified. Strata: 2 PCP: Neville Martínez Specialists: PETER Preferred Pharmacy: [facility] [place]: [place], [facility] Prescription Benefit: yes Living Will/HPOA: yes, son Ray Abarca HPOA LNOK: , son, daughter Living Arrangements: Patient lives with in a single story home with 3 steps and railing to enter the home. Patient is independent at home. Transportation: self, DME/HHC: Patient has cane, walker, wheelchair, and nebulizer at home. Patient has had HHC in the past setup through [facility]. No previous SNF. Patient wishes to discharge home, denies need for home health at this time. Patient states he has no further needs or concerns at this time. CM to follow for discharge planning needs that may arise. Disposition Plan: Patient to discharge home with family support and follow-up plans in place. Yolanda BIGGS, RN, CM
--- NOTE | 2024-12-06 13:23 | NURSING ---
pt given discharge instructions including medications, follow up appointments and all other discharge instructions. pt denies any further needs or questions at this time. telemetry removed and placed at nurses station. iv removed with catheter intact, clean dry dressing applied, pt tolerated well. pt getting dressed and waiting on his .
== END 2024-12-06 13:49 | disposition home or self-care (01) | DRG 191 ==
LOC: ED 23:20 → PCU 23:45
PROVIDERS: Admitting Provider Family Medicine; Emergency Provider Emergency Medicine; Visit Provider Internal Medicine
DX: J44.1 Chronic obstructive pulmonary disease with (acute) exacerbation (principal); E87.20 Acidosis, unspecified; I50.32 Chronic diastolic (congestive) heart failure; D69.6 Thrombocytopenia, unspecified; I11.0 Hypertensive heart disease with heart failure; E66.9 Obesity, unspecified; I48.0 Paroxysmal atrial fibrillation; E78.2 Mixed hyperlipidemia; K21.9 Gastro-esophageal reflux disease without esophagitis; I25.10 Atherosclerotic heart disease of native coronary artery without angina pectoris; M10.9 Gout, unspecified; Z95.0 Presence of cardiac pacemaker; Z87.891 Personal history of nicotine dependence; Z79.82 Long term (current) use of aspirin; Z95.5 Presence of coronary angioplasty implant and graft; Z79.01 Long term (current) use of anticoagulants; Z79.899 Other long term (current) drug therapy; Z85.828 Personal history of other malignant neoplasm of skin; Z79.51 Long term (current) use of inhaled steroids; Z90.49 Acquired absence of other specified parts of digestive tract; Z68.33 Body mass index [BMI] 33.0-33.9, adult
CPT/HCPCS: 71046; 80053; 83605; 83735; 85025; 87040; 87449; 87633; 87635; 94640; 94668; 97161; 97165; 99252; A4216; G0463